=== PATIENT | female | born 1970 | race Caucasian/White ===

== ENCOUNTER 2020-01-14 20:31 | Emergency (ER) | payer MEDICAID, SELFPAY ==
--- NOTE | 2020-01-14 19:52 | ED_ITS ---
Entered by Keyonna Villegas, acting as scribe for Shanae Kaur HPI - Neuro Symptoms/Deficit General: Chief Complaint: Neuro Symptoms/Deficit Stated Complaint: Stroke Like Symptoms Time Seen by Provider: 01/14/20 19:53 Source: patient and EMS Mode of arrival: EMS History of Present Illness: HPI Narrative: 49 y/o female presents to the ED with complaint of possible stroke. EMS states she fell two days ago at home and hit her head in the shower. Pt told them she lost her balance when she became dizzy. Since then, she has had DÍAZ and increased dizziness. Tonight she had a sudden onset of near syncope after becoming dizzy while washing the dishes. Pt has had right sided weakness and right arm tingling/pins and needles sensation. She states at the same time she had a sudden onset headache, the worst headache of her life and feels like a hammer hit her in the head or a drag down knife went into her head. She has vision changes upon exam. Onset 1835 according to . Pt has has hx of diabetes, HTN and TIA. She believes her last known normal was 1600. states she had an episode of decreased consciousness last night but it resolved on its own. Time: 18:35 Timing confirmed by: family member Location: right arm History of same: Yes Severity: similar to previous episodes Quality: weak and tingling Relieving factors: none Context: sudden onset Associated symptoms: Reports tingling and weakness; Deny diaphoresis, malaise or vomiting Review of Systems General: Reports: other (negative unless marked) Const: Denies: fever, chills, body aches, fatigue, malaise or diaphoresis ENMT: Denies: throat pain, painful swallowing, hoarseness, ear pain, ear discharge, Change in hearing or nasal discharge Resp: Denies: shortness of breath, productive cough, non-productive cough, wheezing, coughing up blood or chest congestion GI: Denies: abdominal pain, vomiting, vomiting blood, coffee grounds in vomit, diarrhea, constipation, cramping, blood in stool or black tarry stool : Denies: flank pain, painful urination, urinary frequency, urinary urgency, decreased urine ouput, urinary incontinence or blood in urine Musc: Denies: neck pain, back pain, extremity pain, extremity swelling, joint pain, joint swelling, joint warmth or joint stiffness Skin/Breast: Denies: rash, skin tenderness or yellow skin Neuro: Reports: other (See HPI) Endo: Denies: excessive thirst, tired all the time, cold intolerance, excessive sweating, flushing or hot flashes Renny/Lymph: Denies: easy bruising, easy bleeding, petechiae or enlarged lymph nodes All/Imm: Denies: hives, throat swelling, tongue swelling, facial swelling or acute wheezing PFSH ED PFSH: Social History (Updated 12/02/19 @ 13:24 by Amanda Frost LPN) Smoking and tobacco status: current every day smoker cigarettes Alcohol intake: never NIH stroke score NIHSS: Level Of Consciousness - 1a: 0 Level Of Consciousness Questions - 1 b: Both Correct Level Of Consciousness Commands - 1c: Both Correct Best Gaze - 2: Normal Visual Long - 3: Partial Hemianopia Facial Palsy - 4: Normal Motor Arm Right - 5: Drift Motor Arm Left - 5: No Drift Motor Leg Right - 6: Drift Motor Leg Left - 6: No Drift Limb Ataxia - 7: Present In Two Limbs Sensory - 8: Mild To Moderate Loss (pins and needles R side) Best Language - 9: No Aphasia Dysarthia - 10: Normal Extinction And Inattention - 11: 0 Score: Total Score: 6 Physical Exam Const: COMMON NORMALS: oriented x3 and alert GENERAL APPEARANCE: cooperative and well developed; not lethargic ORIENTATION/CONSCIOUSNESS: Yes awake, Yes oriented to person, Yes oriented to place and Yes oriented to time; not lethargic HENMT: COMMON NORMALS: hearing grossly normal bilaterally, external ears normal, EAC's normal, external nose normal and moist oral mucous membranes FACE & SINUS: normal facial exam and face symmetric NOSE: external nose normal and nares normal EXTERNAL EAR: Yes external ears normal EXTERNAL AUDITORY CANAL: EAC's normal MOUTH: oral and palatal mucosa normal and tongue normal Eye: GENERAL EYE: normal appearance of both eyes and normal light reflex SCLERA: sclerae normal CORNEA: Yes corneas normal DIRECT OPHTHALMOSCOPY: Yes normal light reflex Neck/C-Spine: COMMON NORMALS: full ROM, no lymphadenopathy, supple, no meningeal signs and no JVD GENERAL: Yes normal visual inspection and Yes trachea midline CERVICAL SPINE: Yes cervical ROM normal Chest: COMMONS NORMALS: inspection of chest normal and palpation of chest normal Resp: COMMON NORMALS: normal respiratory effort, no retractions, no use of accessory muscles and clear to auscultation bilaterally EFFORT & INSPECTION: Yes able to speak in complete sentences AUSCULTATION: clear to auscultation bilaterally Cardio: COMMON NORMALS: no JVD, regular rate, regular rhythm, S1 normal heart sound, S2 normal heart sound, no gallops, no clicks, no murmurs and no rub JUGULAR VENOUS DISTENTION: no JVD RATE: regular rate RHYTHM: regular rhythm HEART SOUNDS: S1 normal and S2 normal GI: COMMON NORMALS: soft to palpation, non-tender, no hepatosplenomegaly and no masses INSPECTION: Yes normal to inspection PALPATION: Yes soft and Yes no hepatosplenomegaly : COMMON NORMALS: Yes no CVA tenderness BLADDER/KIDNEY EXAM: Yes no CVA tenderness Back/Pelvis: COMMON NORMALS: no CVA tenderness, thoracic and lumbar spine normal to inspection, no thoracic nor lumbar tenderness and thoraco-lumbar ROM normal Neuro: COMMON NORMALS: oriented x3 and moves all extremities SENSORIUM/ORIENTATION: Yes alert, Yes oriented to person, Yes oriented to place, Yes oriented to time and No lethargic MENINGEAL SIGNS: Yes no meningeal signs CRANIAL NERVES: Yes CN normal except as noted SPEECH: speech normal GAIT: Yes normal gait Skin: COMMON NORMALS: no rashes or lesions noted, skin turgor normal, no jaundice, no petechiae and no mottling GENERAL SKIN EXAM: no rashes or lesions noted and turgor normal Course ED course: 1945 - Stroke Alert Called 1952 - [place] [facility] [place] 2025 - Discussed case with Dr. Oviedo from [facility]. Due to her sudden onset of syncope and experiencing the worse DÍAZ of her life , he does not recommend TPA, at this time. He would like the patient to go for a CTA of the head and neck. 2114 - Discussed CTA results with Dr. Oviedo. He still does not believe TPA is a good option, at this point. He recommends an LP performed 6 hours after onset of symptoms. 2142 - Discussed case with Dr. Hawkins who would like an emergent MRI. 2152 - Emergent MRI ordered STAT 3 -patient is back from MRI and angry that she is not had something for her leg cramps. She denies any current visual symptoms. She states her headache is mild. She states that she wants her family so she can sign out AGAINST MEDICAL ADVICE. 2359 -patient has decided she wants to leave AGAINST MEDICAL ADVICE despite my encouragement to have her stay as well as family's. She wants to sign an AMA form and leave immediately. We will try to get her to stay for discharge instructions but I do not believe she is wanting to stay for those. I do believe the patient is alert to person, place, time and situation. I believe she is competent to make her own decisions. I have no ability to hold her against her will at this time. Her family is willing to take her home and look after her and despite their wishes for her to stay they agree that she cannot be held against her will at this time. The patient has been warned but she is also been welcomed to return. Vital Signs: Vital signs: Vital Signs Temperature 98.4 F 01/14/20 19:53 Pulse Rate 90 01/14/20 19:53 Respiratory Rate 16 01/14/20 19:53 Blood Pressure 162/82 01/14/20 19:53 Pulse Oximetry 97 01/14/20 19:53 MDM - Neuro Symptoms/Deficit MDM Narrative: Medical decision making narrative: Nona is a very nice 49-year-old female who comes in with 3 syncopal episodes in the past 24 hours along with severe headache. A stroke alert was called immediately and the case was reviewed with Dr. Oviedo. Please see his note for his recommendations but ultimately he did not recommend TPA. Even despite the patient's CTA head and neck he did still did not think TPA needed to be given. As time went on treating the patient's headache seemed to be most successful and she got much better. Ultimately though she became very angry that we were not treating her muscle cramps and elected to leave AGAINST MEDICAL ADVICE. I as well as the patient's talked her at length and offered to treat all of her complaints and pains in an effort to get her to stay but she refused. I inform ed her of the risks of leaving AGAINST MEDICAL ADVICE including ultimately or severe permanent disability and the patient refused. Her CT and MRI were negative for blood. Recent studies have shown that CT within the first 6 hours of onset is nearly 100% sensitive for subarachnoid hemorrhage but despite this I did recommend and offer an LP and the patient had initially agreed but then refused because she wanted to leave. I see no evidence of acute life- threatening illness at this time but I did inform the patient that I still recommended admission as 3 syncopal episodes and this type of headache things such as meningitis, rhythm disturbances but can make her pass out again, myocarditis among many other things could cause her symptoms. Many of these things can be life-threatening but still despite all this she refused to stay and signed out AGAINST MEDICAL ADVICE. I tried to get her to stay for discharge instructions but ultimately she decided AGAINST MEDICAL ADVICE form and left without her discharge instructions. The patient was welcome to return should she change her mind. Lab Data: Attestation: I reviewed the patient's lab results. Labs: Lab Results 01/14/20 01/14/20 01/14/20 Range/Units 20:25 20:25 20:25 WBC 15.0 H (4.0-10.0) 10^3/ uL RBC 5.38 H (4.1-5.3) 10^6/u L Hgb 15.7 H (11.5-15.3) g/dL Hct 45.9 (37.0-47.0) % MCV 85.3 (81-99) fL MCH 29.2 (28.0-34.0) pg MCHC 34.2 (30.0-36.0) g/dL RDW 12.6 (12.1-15.1) % Plt Count 123 L (130-400) 10^3/c mm MPV 12.2 H (7.4-10.4) fL Neut % (Auto) 66.2 % Lymph % (Auto) 27.2 % Hutchinson % (Auto) 4.1 % Eos % (Auto) 1.7 % Baso % (Auto) 0.3 % Neut # (Auto) 9.9 H (1.8-7.7) 10^3/u L Lymph # (Auto) 4.1 (0.8-4.8) 10^3/u L Hutchinson # (Auto) 0.6 (0.2-0.9) 10^3/u L Eos # (Auto) 0.3 (0.0-0.8) 10^3/u L Baso # (Auto) 0.0 (0.0-0.1) 10^3/u L Nucleated RBC % (a uto) 0 % Nucleated RBCs # 0.0 /100WBC PT 11.90 (10.5-13.3) SECO NDS INR 0.86 (0.8-1.2) APTT 27.1 (23.9-36.7) SECO NDS Sodium 132 L (136-145) mmol/L Potassium 4.3 (3.5-5.1) mmol/L Chloride 94 L (98-107) mmol/L Carbon Dioxide 22 (22-29) mmol/L Anion Gap 20.3 H (5-19) BUN 11 (6-20) mg/dL Creatinine 0.9 (0.5-0.9) mg/dL GFR Calculation 66.3 L (90-130) mL/min Glucose 258 H (65-115) mg/dL POC Glucose (70-110) mg/dL Calcium 9.7 (8.5-10.5) mg/dL Total Bilirubin 0.2 (0.15-1.2) mg/dL AST < 5 (0-32) U/L ALT < 5 (0-33) U/L Alkaline Phosphata se 196 H (35-105) IU/L Troponin T Baselin e (0-10) ng/mL Troponin T [address] [facility] (0-10) ng/mL Delta Troponin T (0-10) ABS# Total Protein 6.9 (6.6-8.7) g/dL Albumin 4.3 (3.5-5.2) g/dL Globulin 2.6 (1.3-4.6) g/dL 01/14/20 01/14/20 01/14/20 Range/Units 20:25 20:37 21:55 WBC (4.0-10.0) 10^3/ uL RBC (4.1-5.3) 10^6/u L Hgb (11.5-15.3) g/dL Hct (37.0-47.0) % MCV (81-99) fL MCH (28.0-34.0) pg MCHC (30.0-36.0) g/dL RDW (12.1-15.1) % Plt Count (130-400) 10^3/c mm MPV (7.4-10.4) fL Neut % (Auto) % Lymph % (Auto) % Hutchinson % (Auto) % Eos % (Auto) % Baso % (Auto) % Neut # (Auto) (1.8-7.7) 10^3/u L Lymph # (Auto) (0.8-4.8) 10^3/u L Hutchinson # (Auto) (0.2-0.9) 10^3/u L Eos # (Auto) (0.0-0.8) 10^3/u L Baso # (Auto) (0.0-0.1) 10^3/u L Nucleated RBC % (a uto) % Nucleated RBCs # /100WBC PT (10.5-13.3) SECO NDS INR (0.8-1.2) APTT (23.9-36.7) SECO NDS Sodium (136-145) mmol/L Potassium (3.5-5.1) mmol/L Chloride (98-107) mmol/L Carbon Dioxide (22-29) mmol/L Anion Gap (5-19) BUN (6-20) mg/dL Creatinine (0.5-0.9) mg/dL GFR Calculation (90-130) mL/min Glucose (65-115) mg/dL POC Glucose 255 (70-110) mg/dL Calcium (8.5-10.5) mg/dL Total Bilirubin (0.15-1.2) mg/dL AST (0-32) U/L ALT (0-33) U/L Alkaline Phosphata se (35-105) IU/L Troponin T Baselin e 8 (0-10) ng/mL Troponin T [address] [facility] 7.36 (0-10) ng/mL Delta Troponin T -0.64 L (0-10) ABS# Total Protein (6.6-8.7) g/dL Albumin (3.5-5.2) g/dL Globulin (1.3-4.6) g/dL Imaging Data^: CT Head: Radiologist's impression: [address] [address] [address] Scan Report Signed Patient: Analia Hurst #: [id number] : 1970Acct#:[id number] Age/Sex: 49 / FADM Date: Loc: ERRoom/Bed: Attending Dr: Ordering Provider/Ordering MD: Shanae Kaur DO Date of Service: 01/14/20 Procedure(s): CT head wo con* [id number] Accession Number(s): [id number] Report Number: [id number] PROCEDURE INFORMATION: Exam: CT Head Without Contrast Exam date and time: 01/14/2020 7:53 PM Age: 49 years old Clinical indication: Weakness, extremity; Right; Additional info: Symptoms of acute stroke TECHNIQUE: Imaging protocol: Computed tomography of the head without contrast. Total DLP: 790.75 mGy-cm Radiation optimization: All CT scans at this facility use at least one of these dose optimization techniques: automated exposure control; mA and/or kV adjustment per patient size (includes targeted exams where dose is matched to clinical indication); or iterative reconstruction. Other technique: STROKE PROTOCOL was implemented. COMPARISON: No relevant prior studies available. FINDINGS: Brain: Normal. No hemorrhage. Unremarkable white matter. No mass effect. Midline shift: There is no shift of midline structures. Ventricles: Normal. No ventriculomegaly. Bones/joints: Unremarkable. No acute fracture. Sinuses: Visualized sinuses are unremarkable. No fluid levels. Mastoid air cells: Visualized mastoid air cells are well aerated. Soft tissues: Unremarkable. CT/CT head wo con* [id number] IMPRESSION: No acute intracranial abnormality. ASSESSMENT: ASPECTS ([place] Stroke Program Early CT Score) is 10. Radiation Dose CTDIVOL = (mGy): DLP = 790.75 (mGy-cm) Dictated By:Waldemar Salinas Signed By:Ford Salinasigned Date/Time:01/14/202018 CTA : Radiologist's impression: [address] [address] [address] Scan Report Signed Patient: Analia Hurst #: [id number] : 1970Acct#:[id number] Age/Sex: 49 / FADM Date: 01/14/20 Loc: ERRoom/Bed: Attending Dr: Ordering Provider/Ordering MD: Shanae Kaur DO Date of Service: 01/14/20 Procedure(s): CT angio headneck* [id number] Accession Number(s): [id number] Report Number: [id number] PROCEDURE INFORMATION: Exam: CT Angiography Head With Contrast Exam date and time: 01/14/2020 8:28 PM Age: 49 years old Clinical indication: Weakness; Prior surgery; Surgery date: 1-6 months; Additional info: Stroke symptoms TECHNIQUE: Imaging protocol: Computed tomography angiography of the head with intravenous contrast. 3D rendering: MIP and/or 3D reconstructed images were created by the technologist. Total DLP: 2997.32 mGy-cm Radiation optimization: All CT scans at this facility use at least one of these dose optimization techniques: automated exposure control; mA and/or kV adjustment per patient size (includes targeted exams where dose is matched to clinical indication); or iterative reconstruction. Contrast material: OMNI 350; Contrast volume: 95 ml; Contrast route: IV; COMPARISON: CT head wo con* [id number] 01/14/2020 8:06 PM FINDINGS: Right internal carotid artery: Unremarkable. Intracranial segment is patent with no significant stenosis. No aneurysm. Right anterior cerebral artery: Unremarkable. No occlusion or significant stenosis. No aneurysm. Right middle cerebral artery: Unremarkable. No occlusion or significant stenosis. No aneurysm. Right posterior cerebral artery: Unremarkable. No occlusion or significant stenosis. No aneurysm. Right vertebral artery: Unremarkable. No occlusion or significant stenosis. No aneurysm. Left internal carotid artery: Unremarkable. Intracranial segment is patent with no significant stenosis. No aneurysm. Left anterior cerebral artery: Unremarkable. No occlusion or significant stenosis. No aneurysm. Left middle cerebral artery: Unremarkable. No occlusion or significant stenosis. No aneurysm. Left posterior cerebral artery: Unremarkable. No occlusion or significant stenosis. No aneurysm. Left vertebral artery: Unremarkable. No occlusion or significant stenosis. No aneurysm. Basilar artery: Unremarkable. No occlusion or significant stenosis. No aneurysm. IMPRESSION: No acute findings. PROCEDURE INFORMATION: Exam: CT Angiography Neck With Contrast Exam date and time: 01/14/2020 8:28 PM Age: 49 years old Clinical indication: Weakness; Prior surgery; Surgery date: 1-6 months; Additional info: Stroke symptoms TECHNIQUE: Imaging protocol: Computed tomography angiography of the neck with intravenous contrast. 3D rendering: MIP and/or 3D reconstructed images were created by the technologist. Total DLP: 2997.32 mGy-cm Radiation optimization: All CT scans at this facility use at least one of these dose optimization techniques: automated exposure control; mA and/or kV adjustment per patient size (includes targeted exams where dose is matched to clinical indication); or iterative reconstruction. Contrast material: OMNI 350; Contrast volume: 95 ml; Contrast route: IV; COMPARISON: CT head wo con* [id number] 01/14/2020 8:06 PM FINDINGS: VASCULATURE: Right common carotid artery: Unremarkable. No stenosis. No dissection or occlusion. Right internal carotid artery: Unremarkable extracranial segment. No stenosis. No dissection or occlusion. Right external carotid artery: Unremarkable. No occlusion or stenosis of the origin. Right vertebral artery: Unremarkable. No stenosis. No dissection or occlusion. Left common carotid artery: The left common carotid artery and the brachiocephalic artery arise from a common trunk. This is a developmental variant. Left internal carotid artery: There is some minimal calcified plaque in the proximal left internal carotid artery without measurable stenosis according to the NASCET criteria. Left external carotid artery: Unremarkable. No occlusion or stenosis of the origin. Left vertebral artery: Unremarkable. No stenosis. No dissection or occlusion. NECK: Bones/joints: There are extensive postsurgical changes of anterior spinal fusion from C3-C7 Soft tissues: Normal. No significant soft tissue swelling. CT/CT angio headneck* [id number] IMPRESSION: There is no evidence of any stenosis in the common or internal carotid artery on either side of the neck. COMMENT: Using NASCET method for measuring degree of carotid artery stenosis: Mild is less than 50% stenosis. Moderate is 50-69% stenosis. Severe is 70-94% stenosis. Near occlusion is 95-99% stenosis. Radiation Dose CTDIVOL = (mGy): DLP = 2997.32~2997.32 (mGy-cm) Dictated By:Waldemar Salinas Signed By:Tracy Salinas Date/Time:01/14/202124 MRI: Radiologist's impression: [address] [address] Magnetic Resonance Report Signed Patient: Analia Hurst #: [id number] : 1970Acct#:[id number] Age/Sex: 49 / FADM Date: 01/14/20 Loc: ERRoom/Bed: Attending Dr: Ordering Provider/Ordering MD: Shanae Kaur DO Date of Service: 01/14/20 Procedure(s): MR head wo con* [id number] Accession Number(s): [id number] Report Number: [id number] PROCEDURE INFORMATION: Exam: MR Head Without Contrast Exam date and time: 01/14/2020 9:49 PM Age: 49 years old Clinical indication: Other: Possible CVA , headache; Additional info: CVA symptoms TECHNIQUE: Imaging protocol: MR of the head without contrast. COMPARISON: CT head wo con* [id number] 01/14/2020 8:06 PM FINDINGS: Brain: Normal. No acute infarct. No hemorrhage. No significant white matter disease. No edema. Ventricles: Normal. No ventriculomegaly. Bones/joints: Unremarkable. Soft tissues: Unremarkable. Sinuses: There is some mild opacification of some left ethmoid air cells which could represent some mild sinusitis.. Mastoid air cells: Normal as visualized. No mastoid effusion. Orbits: Unremarkable. MR/MR head wo con* [id number] IMPRESSION: Question of left ethmoid sinusitis. No acute intracranial finding EKG Data^: EKG 1: Attestation: I personally reviewed and interpreted this EKG as follows: EKG interpretation date: 01/14/20 EKG interpretation time: 20:27 Interpretation: Normal sinus rhythm at 94 beats a minute, no acute ST or T wave changes, incomplete right bundle branch block, normal intervals, no blocks. EKG 2: Attestation: I personally reviewed and interpreted this EKG as follows: EKG interpretation date: 01/14/20 EKG interpretation time: 22:08 Interpretation: Normal sinus rhythm at 81 beats a minute, no acute ST-T wave changes, incomplete right bundle branch block. Discharge Plan Discharge Patient Disposition: Left Against Medical Advice Clinical Impression: Syncope Qualifiers: Syncope type: unspecified Qualified Code(s): R55 - Syncope and collapse Condition: Stable Prescriptions: No Action promethazine 25 mg tablet 25 mg PO .1/2 tab BID PRNRF: 0 Novolog Mix 70-30FlexPen U-100 100 unit/mL (70-30) insulin pen 20 unit SUBCUT QAM RF: 0 prazosin 1 mg capsule 1 mg PO .HS RF: 0 pregabalin [Lyrica] 300 mg capsule 300 mg PO BID RF: 0 tramadol 50 mg tablet 50 mg PO .5 times daily PRN (Reason: Pain) RF: 0 meloxicam 15 mg tablet,disintegrating 15 mg PO ONCE RF: 0 oxycodone 15 mg tablet 30 mg PO TID PRN (Reason: Pain) RF: 0 tizanidine 4 mg capsule 4 mg PO TID PRN (Reason: Sleep) RF: 0 ropinirole 2 mg tablet 2 mg PO .HS RF: 0 Bydureon 2 mg/0.65 mL pen injector 2 mg SUBCUT Q7D RF: 0 lactulose 20 gram/30 mL solution 20 gm PO BID RF: 0 Toujeo Max U-300 SoloStar 300 unit/mL (3 mL) insulin pen 76 unit SUBCUT BID RF: 0 sumatriptan succinate [Imitrex] 100 mg tablet 100 mg PO ONCE RF: 0 fluconazole 150 mg tablet 150 mg PO .once a week RF: 0 nitroglycerin [Nitrostat] 0.4 mg tablet, sublingual 0.4 mg SUBLINGUAL Q5M PRNRF: 0 oxymetazoline [Afrin (oxymetazoline)] 0.05 % spray,non-aerosol 2 spray INTRANASAL Q12H PRNRF: 0 loratadine [Claritin] 10 mg tablet 10 mg PO ONCE RF: 0 multivitamin Capsule 1 cap PO QAM RF: 0 ondansetron HCl 4 mg tablet 4 mg PO Q6H 20 Days Qty: 30 RF: 4 citalopram [Celexa] 40 mg tablet 40 mg PO ONCE 30 Days Qty: 30 RF: 6 zolpidem [Ambien] 10 mg tablet 10 mg PO ONCE 30 Days Qty: 30 RF: 3 ranitidine HCl 150 mg tablet 150 mg PO BID RF: 0 Discharge Orders: Discharge Order (Routine); Ordered 01/15/20 Ordered By: Shanae Kaur Referrals: Yesica Bailey MD [Primary Care Provider] - 1-3 days Discharge Diet: Advance as tolerated Discharge Activity: Increase activity as tolerated Patient Instructions: Syncope (ED) Activity Restrictions/Additional Instructions: You're leaving AGAINST MEDICAL ADVICE and are at risk for or severe permanent disability by doing so. You are more than welcome to return at any time for recheck and for further evaluation and care suture change you change your mind. Stand Alone Forms: Against Medical Advice Discharge Date/Time: 01/14/20 23:58 Coding Level of Care Code ED Chair And Couch Maker for Chg Fwd Exam Comprehensive The documentation recorded by the scribBakari rhodes Ashley, accurately reflects the service I personally performed and the decisions made by me, Shanae Kaur
[2020-01-14 19:53] VITALS: BP 162/82; PULSE 90; RESP 16; TEMP 36.9; O2SAT 97; BMI 32.4
--- NOTE | 2020-01-14 19:53 | ECG_ITS ---
Measurements Intervals [place] Rate: 94 P: 66 OR: 166 QRS: 88 QRSD: 85 T: 75 QT: 336 QTc: 421 SINUS RHYTHM Compared to ECG 04/29/2018 08:39:08 Incomplete right bundle-branch block no longer present Electronically Signed On 01-15-2020 9:13:17 CAR VARNISHER by Gera Quintero M.D. [email or web address]
--- NOTE | 2020-01-14 20:26 | CTR_ITS ---
PROCEDURE INFORMATION: Exam: CT Angiography Head With Contrast Exam date and time: 01/14/2020 8:28 PM Age: 49 years old Clinical indication: Weakness; Prior surgery; Surgery date: 1-6 months; Additional info: Stroke symptoms TECHNIQUE: Imaging protocol: Computed tomography angiography of the head with intravenous contrast. 3D rendering: MIP and/or 3D reconstructed images were created by the technologist. Total DLP: 2997.32 mGy-cm Radiation optimization: All CT scans at this facility use at least one of these dose optimization techniques: automated exposure control; mA and/or kV adjustment per patient size (includes targeted exams where dose is matched to clinical indication); or iterative reconstruction. Contrast material: OMNI 350; Contrast volume: 95 ml; Contrast route: IV; COMPARISON: CT head wo con* [id number] 01/14/2020 8:06 PM FINDINGS: Right internal carotid artery: Unremarkable. Intracranial segment is patent with no significant stenosis. No aneurysm. Right anterior cerebral artery: Unremarkable. No occlusion or significant stenosis. No aneurysm. Right middle cerebral artery: Unremarkable. No occlusion or significant stenosis. No aneurysm. Right posterior cerebral artery: Unremarkable. No occlusion or significant stenosis. No aneurysm. Right vertebral artery: Unremarkable. No occlusion or significant stenosis. No aneurysm. Left internal carotid artery: Unremarkable. Intracranial segment is patent with no significant stenosis. No aneurysm. Left anterior cerebral artery: Unremarkable. No occlusion or significant stenosis. No aneurysm. Left middle cerebral artery: Unremarkable. No occlusion or significant stenosis. No aneurysm. Left posterior cerebral artery: Unremarkable. No occlusion or significant stenosis. No aneurysm. Left vertebral artery: Unremarkable. No occlusion or significant stenosis. No aneurysm. Basilar artery: Unremarkable. No occlusion or significant stenosis. No aneurysm. IMPRESSION: No acute findings. PROCEDURE INFORMATION: Exam: CT Angiography Neck With Contrast Exam date and time: 01/14/2020 8:28 PM Age: 49 years old Clinical indication: Weakness; Prior surgery; Surgery date: 1-6 months; Additional info: Stroke symptoms TECHNIQUE: Imaging protocol: Computed tomography angiography of the neck with intravenous contrast. 3D rendering: MIP and/or 3D reconstructed images were created by the technologist. Total DLP: 2997.32 mGy-cm Radiation optimization: All CT scans at this facility use at least one of these dose optimization techniques: automated exposure control; mA and/or kV adjustment per patient size (includes targeted exams where dose is matched to clinical indication); or iterative reconstruction. Contrast material: OMNI 350; Contrast volume: 95 ml; Contrast route: IV; COMPARISON: CT head wo con* [id number] 01/14/2020 8:06 PM FINDINGS: VASCULATURE: Right common carotid artery: Unremarkable. No stenosis. No dissection or occlusion. Right internal carotid artery: Unremarkable extracranial segment. No stenosis. No dissection or occlusion. Right external carotid artery: Unremarkable. No occlusion or stenosis of the origin. Right vertebral artery: Unremarkable. No stenosis. No dissection or occlusion. Left common carotid artery: The left common carotid artery and the brachiocephalic artery arise from a common trunk. This is a developmental variant. Left internal carotid artery: There is some minimal calcified plaque in the proximal left internal carotid artery without measurable stenosis according to the NASCET criteria. Left external carotid artery: Unremarkable. No occlusion or stenosis of the origin. Left vertebral artery: Unremarkable. No stenosis. No dissection or occlusion. NECK: Bones/joints: There are extensive postsurgical changes of anterior spinal fusion from C3-C7 Soft tissues: Normal. No significant soft tissue swelling. CT/CT angio headneck* [id number] IMPRESSION: There is no evidence of any stenosis in the common or internal carotid artery on either side of the neck. COMMENT: Using NASCET method for measuring degree of carotid artery stenosis: Mild is less than 50% stenosis. Moderate is 50-69% stenosis. Severe is 70-94% stenosis. Near occlusion is 95-99% stenosis. Radiation Dose CTDIVOL = (mGy): DLP = 2997.32~2997.32 (mGy-cm)
[2020-01-14 20:29] LABS: Basophils % 0.3 %; Eosinophils # 0.3 10^3/uL (0.0-0.8); Eosinophils % 1.7 %; Hematocrit 45.9 % (37.0-47.0); Hemoglobin 15.7 g/dL (11.5-15.3); Lymphocytes # 4.1 10^3/uL (0.8-4.8); Lymphocytes % 27.2 %; Mean Corpuscular HGB Conc 34.2 g/dL (30.0-36.0); Mean Corpuscular Hemoglobin 29.2 pg (28.0-34.0); Mean Corpuscular Volume 85.3 fL (81-99); Mean Platelet Volume 12.2 fL (7.4-10.4); Monocytes # 0.6 10^3/uL (0.2-0.9); Monocytes % 4.1 %; Neutrophils # 9.9 10^3/uL (1.8-7.7); Neutrophils % 66.2 %; Nucleated Red Blood Cells % 0 %; Platelet Count 123 10^3/cmm (130-400); Red Blood Count 5.38 10^6/uL (4.1-5.3); Red Cell Distribution Width 12.6 % (12.1-15.1)
[2020-01-14] MEDS: iohexol 350 mg/mL 100 mL Btl IV (20:29)
[2020-01-14 20:38] LABS: INR 0.86 (0.8-1.2)
[2020-01-14 20:39] LABS: Partial Thromboplastin Time 27.1 SECONDS (23.9-36.7)
[2020-01-14 20:40] LABS: Glucose Point of Care 255 mg/dL (70-110)
[2020-01-14 20:50] LABS: Troponin(5th) Baseline 8 ng/mL (0-10)
[2020-01-14 21:12] LABS: Alanine Aminotransferase < 5 U/L (0-33); Albumin Level 4.3 g/dL (3.5-5.2); Alkaline Phosphatase 196 IU/L (35-105); Anion Gap 20.3 (5-19); Blood Urea Nitrogen 11 mg/dL (6-20); Calcium 9.7 mg/dL (8.5-10.5); Carbon Dioxide 22 mmol/L (22-29); Chloride 94 mmol/L (98-107); Globulin 2.6 g/dL (1.3-4.6); Glomerular Filtration Rate 66.3 mL/min (90-130); Glucose 258 mg/dL (65-115); Potassium 4.3 mmol/L (3.5-5.1); Total Bilirubin 0.2 mg/dL (0.15-1.2); Total Protein 6.9 g/dL (6.6-8.7)
[2020-01-14 21:13] LABS: Aspartate Amino Transferase < 5 U/L (0-32)
[2020-01-14 21:14] LABS: Sodium 132 mmol/L (136-145)
--- NOTE | 2020-01-14 21:46 | MRR_ITS ---
PROCEDURE INFORMATION: Exam: MR Head Without Contrast Exam date and time: 01/14/2020 9:49 PM Age: 49 years old Clinical indication: Other: Possible CVA , headache; Additional info: CVA symptoms TECHNIQUE: Imaging protocol: MR of the head without contrast. COMPARISON: CT head wo con* [id number] 01/14/2020 8:06 PM FINDINGS: Brain: Normal. No acute infarct. No hemorrhage. No significant white matter disease. No edema. Ventricles: Normal. No ventriculomegaly. Bones/joints: Unremarkable. Soft tissues: Unremarkable. Sinuses: There is some mild opacification of some left ethmoid air cells which could represent some mild sinusitis.. Mastoid air cells: Normal as visualized. No mastoid effusion. Orbits: Unremarkable. MR/MR head wo con* [id number] IMPRESSION: Question of left ethmoid sinusitis. No acute intracranial finding
--- NOTE | 2020-01-14 21:53 | ECG_ITS ---
Measurements Intervals [place] Rate: 81 P: 64 LA: 168 QRS: 79 QRSD: 91 T: 74 QT: 372 QTc: 433 SINUS RHYTHM Compared to ECG 04/29/2018 08:39:08 Incomplete right bundle-branch block no longer present Electronically Signed On 01-15-2020 9:14:54 [employer] by Gera Quintero M.D. [email or web address]
[2020-01-14 22:30] LABS: Troponin 5 2HR 7.36 ng/mL (0-10)
[2020-01-14 22:36] LABS: Troponin 5 2HR Delta -0.64 ABS# (0-10)
--- NOTE | 2020-01-14 22:38 | PC.NURSE ---
pt to MRI via EMS
[2020-01-14] MEDS: valproic acid inj 500 MG in sodium chloride 0.9% 50 ML 55 MG IV (23:36)
== END 2020-01-14 23:58 | disposition left against medical advice (07) ==
PROVIDERS: Emergency Provider Emergency Medicine; Family Provider Family Medicine; PCP Family Medicine
DX: R55 Syncope and collapse (principal); E11.9 Type 2 diabetes mellitus without complications; I10 Essential (primary) hypertension; F17.210 Nicotine dependence, cigarettes, uncomplicated; Z79.4 Long term (current) use of insulin; R29.706 NIHSS score 6; Z86.73 Personal history of transient ischemic attack (TIA), and cerebral infarction without residual deficits; Z53.29 Procedure and treatment not carried out because of patient's decision for other reasons
CPT/HCPCS: 36416; 70450; 70496; 70498; 70551; 80053; 82962; 84484; 85025; 85610; 85730; 93005; 96365; 96367; 99283; 99285; J0131; Q9967

== ENCOUNTER 2020-01-14 20:31 | Emergency (ER) | payer MEDICAID, SELFPAY | END 2020-01-14 23:58 | disposition left against medical advice (07) | LOC: ER 01-20 13:13 | PROVIDERS: Emergency Provider Emergency Medicine; Family Provider Family Medicine; PCP Family Medicine | DX: Z76.89 Persons encountering health services in other specified circumstances (principal) ==

== ENCOUNTER → 2020-01-18 08:04 | Outpatient (BNVA) | payer MEDICAID, SELFPAY | PROVIDERS: Family Provider Family Medicine; PCP Family Medicine; Visit Provider Anesthesiology | DX: M54.5 Low back pain (principal); M96.1 Postlaminectomy syndrome, not elsewhere classified; M79.651 Pain in right thigh; M79.652 Pain in left thigh; M48.02 Spinal stenosis, cervical region; F17.210 Nicotine dependence, cigarettes, uncomplicated; Z79.891 Long term (current) use of opiate analgesic | CPT/HCPCS: 99214 ==

== ENCOUNTER → 2020-05-08 09:28 | Outpatient (BNVA) | payer MEDICAID, SELFPAY | PROVIDERS: Family Provider Family Medicine; PCP Family Medicine; Visit Provider Nurse Practitioner | DX: M51.36 Other intervertebral disc degeneration, lumbar region (principal); M96.1 Postlaminectomy syndrome, not elsewhere classified; M48.02 Spinal stenosis, cervical region; Z79.891 Long term (current) use of opiate analgesic | CPT/HCPCS: 99214 ==

== ENCOUNTER → 2020-07-03 08:49 | Outpatient (BNVA) | payer MEDICAID, SELFPAY | PROVIDERS: Family Provider Family Medicine; PCP Family Medicine; Visit Provider Anesthesiology | DX: M54.41 Lumbago with sciatica, right side (principal); M51.36 Other intervertebral disc degeneration, lumbar region; M48.02 Spinal stenosis, cervical region; M54.9 Dorsalgia, unspecified; M96.1 Postlaminectomy syndrome, not elsewhere classified; Z79.891 Long term (current) use of opiate analgesic | CPT/HCPCS: 99214 ==

== ENCOUNTER → 2020-09-07 07:51 | Outpatient (BNVA) | payer MEDICAID, SELFPAY | PROVIDERS: Family Provider Family Medicine; PCP Family Medicine; Visit Provider Anesthesiology | DX: M51.36 Other intervertebral disc degeneration, lumbar region (principal); M48.02 Spinal stenosis, cervical region; M96.1 Postlaminectomy syndrome, not elsewhere classified; M54.9 Dorsalgia, unspecified; M54.2 Cervicalgia; Z79.891 Long term (current) use of opiate analgesic | CPT/HCPCS: 99213; 99214 ==

== ENCOUNTER → 2020-10-01 10:58 | Outpatient (BNVA) | payer MEDICAID, SELFPAY | PROVIDERS: Family Provider Family Medicine; PCP Family Medicine; Visit Provider Family Medicine | DX: E11.9 Type 2 diabetes mellitus without complications (principal); Z79.4 Long term (current) use of insulin; F33.1 Major depressive disorder, recurrent, moderate; M96.1 Postlaminectomy syndrome, not elsewhere classified | CPT/HCPCS: 80053; 83036; 85025 ==

== ENCOUNTER → 2020-10-04 07:50 | Outpatient (BNVA) | payer MEDICAID, SELFPAY | PROVIDERS: Family Provider Family Medicine; PCP Family Medicine; Visit Provider Anesthesiology | DX: M54.42 Lumbago with sciatica, left side (principal); M54.41 Lumbago with sciatica, right side; M96.1 Postlaminectomy syndrome, not elsewhere classified; M54.9 Dorsalgia, unspecified; M48.02 Spinal stenosis, cervical region; Z79.1 Long term (current) use of non-steroidal anti-inflammatories (NSAID); Z79.891 Long term (current) use of opiate analgesic | CPT/HCPCS: 62323; 99213; 99214 ==

== ENCOUNTER 2020-10-11 12:19 | Inpatient (IN) | payer MEDICAID, SELFPAY ==
[2020-10-11] VITALS (9 sets, daily range): BP systolic 92–144; BP diastolic 63–76; PULSE 87–102; RESP 14–18; TEMP 36.8; O2SAT 93–98
[2020-10-11 12:55] LABS: Hematocrit 41.6 % (37.0-47.0); Hemoglobin 13.4 g/dL (11.5-15.3); Mean Corpuscular HGB Conc 32.2 g/dL (30.0-36.0); Mean Corpuscular Hemoglobin 29.8 pg (28.0-34.0); Mean Corpuscular Volume 92.7 fL (81-99); Mean Platelet Volume 13.6 fL (7.4-10.4); Platelet Count 256 10^3/cmm (130-400); Red Blood Count 4.49 10^6/uL (4.1-5.3); Red Cell Distribution Width 14.6 % (12.1-15.1); White Blood Count 23.1 10^3/uL (4.0-10.0)
[2020-10-11 13:04] LABS: ABG PCO2 36.1 mmHg (35-45); ABG PH Result 7.35 (7.35-7.45); Alveolar-Arterial Oxygen Gradi 4.7 mmHg (5-10); Arterial Blood Gas Hematocrit 37.4 % (37-47); Base Excess ABG -5.1 mmol/L (-2.0-2.0); Blood Gas Allen Test Pos; Blood Gas Operator Identificat MONRO; Blood Gas Sample Site Radial, right; Blood Gas Sample Type Arterial; Carboxyhemoglobin 1.9 %THgb (0.4-20.1); HCO3 ABG 19.9 mmol/L (22-26); HGB O2 Sat 90.4 % (95-100); Ionized Calcium Level - ABG 1.1 mmol/L (1.1-1.4); Oxygen Device ROOM AIR; PO2 ABG 68.3 mmHg (80.0-100.0); Potassium Level - ABG 3.6 mmol/L (3.5-5.0); Total Hemoglobin 12.2 g/dL (12-16)
[2020-10-11] MEDS: sodium chloride 0.9% 1,000 ML 999 ML IV ×2 (13:15→19:45)
[2020-10-11] MEDS: naloxone 0.4 mg/ml SDV IVP (13:23)
[2020-10-11 13:38] LABS: Slide Review Slide Review Perform
--- NOTE | 2020-10-11 13:38 | W.ED.RECABL ---
Documented by User: Mukul Etaon DO 10/16/20 11:13 HPI - Recheck/Abnormal Lab/Rx General: Chief Complaint: Recheck/Abnormal Lab/Rx Stated Complaint: HIGH BS/ LETHARGY/ AMS Time Seen by Provider: 10/11/20 12:29 History of Present Illness: HPI narrative: 49-year-old male presents emergency room with altered mental status lethargic very difficult to get a history from. She states I just need to feel better. She tells me she is having dizzy nests and nausea. She denies any chest pain does have some left sided abdominal pain she denies dysuria urgency or frequency no diarrhea she states she had a temp up to 103 earlier today but did not take anything for it. Patient is a smoker. She does take tramadol though she is not able to tell me why she takes it she is extremely lethargic during history taking interview she will answer but frequently need to rearouse her she continually dozes off she appears to be under the influence of medication suspecting she may have taken too much tramadol just based on her appearance. Or has taken some other sedating medication. Initial visit (ago): day(s) Associated symptoms: fever, chills, chest pain, shortness of breath, malaise and nausea Review of Systems General: Reports: ROS unobtainable due to mental status PFSH ED PFSH: Medical History (Updated 10/16/20 @ 00:00 by ) Depression Diabetes Encounter for long-term use of opiate analgesic Hypertension Insomnia penitentiary (current) use of non-steroidal anti-inflammatories (nsaid) Lumbar post-laminectomy syndrome Opioid contract exists Spinal stenosis, cervical region Ulnar nerve impingement Surgical History H/O carpal tunnel repair H/O neck surgery H/O rotator cuff surgery H/O tubal ligation History of hysterectomy History of lumbar fusion S/P left knee arthroscopy Family History Other CAD (coronary artery disease) Cancer Stroke Denies family history of Anesthesia complication Bleeding disorder Social History Smoking and tobacco status: former smoker Alcohol intake: former History of recent travel: No Physical Exam Const: COMMON NORMALS: no acute distress HENMT: COMMON NORMALS: normocephalic, atraumatic and hearing grossly normal bilaterally HEAD & SCALP: normocephalic and atraumatic Neck/C-Spine: COMMON NORMALS: full ROM, no lymphadenopathy, supple and no JVD Lymph: LYMPHATIC: no lymphadenopathy noted and no lymphedema noted Resp: COMMON NORMALS: normal respiratory effort, No retractions, No use of accessory muscles and clear to auscultation bilaterally AUSCULTATION: clear to auscultation bilaterally Cardio: COMMON NORMALS: no JVD, regular rate, regular rhythm and No murmurs present (Cardio) RATE: regular rate RHYTHM: regular rhythm GI: COMMON NORMALS: Soft to palpation and No hepatosplenomegaly present AUSCULTATION: Yes normoactive bowel sounds PALPATION: Yes Soft to palpation, No Tenderness to palpation present (GI), No Guarding due to palpation present (GI) and Yes No hepatosplenomegaly present Extremity: COMMON NORMALS: normal to inspection, capillary refill normal, no clubbing, cyanosis or edema, no calf tenderness and no pedal edema Skin: COMMON NORMALS: no rashes or lesions noted GENERAL SKIN EXAM: no rashes or lesions noted Course Vital Signs: Vital signs: Vital Signs Temperature 97.8 F 10/15/20 10:31 Pulse Rate 81 10/15/20 10:31 Respiratory Rate 16 10/15/20 10:31 Blood Pressure 161/78 10/15/20 10:31 Pulse Oximetry 97 10/15/20 10:31 MDM - Recheck/Abnormal Lab/Rx MDM Narrative: Medical decision making narrative: Care turned over to Dr. Guzman at change of shift Lab Data: Labs: Lab Results 10/11/20 10/11/20 10/11/20 Range/Units 12:00 12:00 12:00 WBC 23.1 H (4.0-10.0) 10^3/ uL RBC 4.49 (4.1-5.3) 10^6/u L Hgb 13.4 (11.5-15.3) g/dL Hct 41.6 (37.0-47.0) % MCV 92.7 (81-99) fL MCH 29.8 (28.0-34.0) pg MCHC 32.2 (30.0-36.0) g/dL RDW 14.6 (12.1-15.1) % Plt Count 256 (130-400) 10^3/c mm MPV 13.6 H (7.4-10.4) fL Total Counted 100 (0-100) Atypical Lymphs % 0.0 (0-5) % Absolute Neutrophi ls 19.4 H (1.4-6.5) 10^3/c mm Segmented Neutroph ils 76 % Abs Segm Neuts (Ma n) 17.6 H (1.6-7.1) 10/cmm Band Neutrophils 8.0 % Abs Band Neuts (Ma n) 1.8 H (0.0-1.2) 10^3/c mm Lymphocytes (Manua l) 11 % Monocytes (Manual) 5.0 % Absolute Monocytes 1.2 H (0.1-0.6) 10^3/c mm Eosinophils (Manua l) 0 % Absolute Eosinophi ls 0.0 (0.0-0.7) 10^3/c mm Basophils (Manual) 0.0 % Absolute Basophils 0.0 (0.0-0.2) 10^3/c mm Platelet Estimate Normal (Normal) D-Dimer 5.92 H (0-0.59) ug/mIFE U Specimen Type Sample Site ABG pH (7.35-7.45) ABG pCO2 (35-45) mmHg ABG pO2 (80.0-100.0) mmH g ABG HCO3 (22-26) mmol/L ABG O2 Saturation ABG Base Excess (-2.0-2.0) mmol/ L Kevon Test A-a O2 Gradient (5-10) mmHg Hematocrit (37-47) % Hgb O2 Saturation (95-100) % Carboxyhemoglobin (0.4-20.1) %THgb Methemoglobin (0.4-1.5) % Total Hemoglobin (12-16) g/dL Sodium (131-143) mmol/L Potassium (3.5-5.0) mmol/L Glucose (70-115) mg/dL Ionized Calcium (1.1-1.4) mmol/L O2 Delivery Device FiO2 % Zig Zag Stitcher ID Chloride (98-107) mmol/L Carbon Dioxide (22-29) mmol/L Anion Gap (5-19) BUN (6-20) mg/dL Creatinine (0.5-0.9) mg/dL GFR Calculation (90-130) mL/min POC Glucose (70-110) mg/dL Estimat Average Gl ucose 278 Hemoglobin A1c 11.3 H (4.0-6.0) % Calculated Osmolal ity (285-295) mOsm/k g Lactic Acid (0.5-2.2) mmol/L Calcium (8.5-10.5) mg/dL Magnesium (1.7-2.3) mg/dL Total Bilirubin (0.15-1.2) mg/dL AST (0-32) U/L ALT (0-33) U/L Alkaline Phosphata se (35-105) IU/L Troponin T Baselin e (0-10) ng/L Troponin T 120 Min [place] (0-10) ng/L Delta Troponin T (0-10) ABS# Troponin T Hi Sens 6Hr (0-10) ng/L Troponin T Hi Sens 6Hr Delta (0-12) ng/L Total Protein (6.6-8.7) g/dL Albumin (3.5-5.2) g/dL Globulin (1.3-4.6) g/dL Lipase (13-60) U/L Procalcitonin (0-0.5) ng/mL Urine Color (Yellow) Urine Appearance (CLEAR) Urine pH (5-7) Ur Specific Gravit y (1.005-1.030) Urine Protein (Negative) Urine Glucose (UA) (Normal) Urine Ketones (Negative) Urine Blood (Negative) Urine Nitrate (Negative) Urine Bilirubin (Negative) Urine Urobilinogen (Negative) mg/dL Ur Leukocyte Fartun ase (Negative) Urine RBC (0-2) /hpf Urine WBC (0-5) /hpf Ur Squamous Epith Cells (0-5) /hpf Amorphous Sediment Urine Bacteria (NONE) /hpf Urine Mucus /hpf Salicylates (3-10) mg/dL Urine Opiates Scre en (Negative) ng/mL Acetaminophen (10-30) ug/mL Ur Barbiturates Sc reen (Negative) ng/mL Ur Phencyclidine S crn (Negative) ng/mL Ur Amphetamines Sc reen (Negative) ng/mL U Benzodiazepines Scrn (Negative) ng/mL Urine Cocaine Scre en (Negative) ng/mL U Marijuana (THC) Screen (Negative) ng/mL Ethyl Alcohol (0-10) mg/dL Serum Ketones (Negative) Nasal/Oral COVID-1 9 PCR SARS-CoV-2 Ag (Rap id) (Negative) 10/11/20 10/11/20 10/11/20 Range/Units 12:51 13:26 13:26 WBC (4.0-10.0) 10^3/ uL RBC (4.1-5.3) 10^6/u L Hgb (11.5-15.3) g/dL Hct (37.0-47.0) % MCV (81-99) fL MCH (28.0-34.0) pg MCHC (30.0-36.0) g/dL RDW (12.1-15.1) % Plt Count (130-400) 10^3/c mm MPV (7.4-10.4) fL Total Counted (0-100) Atypical Lymphs % (0-5) % Absolute Neutrophi ls (1.4-6.5) 10^3/c mm Segmented Neutroph ils % Abs Segm Neuts (Ma n) (1.6-7.1) 10/cmm Band Neutrophils % Abs Band Neuts (Ma n) (0.0-1.2) 10^3/c mm Lymphocytes (Manua l) % Monocytes (Manual) % Absolute Monocytes (0.1-0.6) 10^3/c mm Eosinophils (Manua l) % Absolute Eosinophi ls (0.0-0.7) 10^3/c mm Basophils (Manual) % Absolute Basophils (0.0-0.2) 10^3/c mm Platelet Estimate (Normal) D-Dimer (0-0.59) ug/mIFE U Specimen Type Arterial Sample Site Radial, right ABG pH 7.35 (7.35-7.45) ABG pCO2 36.1 (35-45) mmHg ABG pO2 68.3 L (80.0-100.0) mmH g ABG HCO3 19.9 L (22-26) mmol/L ABG O2 Saturation 93.0 ABG Base Excess -5.1 L (-2.0-2.0) mmol/ L Kevon Test Pos A-a O2 Gradient 4.7 L (5-10) mmHg Hematocrit 37.4 (37-47) % Hgb O2 Saturation 90.4 L (95-100) % Carboxyhemoglobin 1.9 (0.4-20.1) %THgb Methemoglobin 1.0 (0.4-1.5) % Total Hemoglobin 12.2 (12-16) g/dL Sodium 126.0 L (131-143) mmol/L Potassium 3.6 (3.5-5.0) mmol/L Glucose 450.0 H (70-115) mg/dL Ionized Calcium 1.1 (1.1-1.4) mmol/L O2 Delivery Device Room air FiO2 21.0 % Zig Zag Stitcher ID [place] Chloride (98-107) mmol/L Carbon Dioxide (22-29) mmol/L Anion Gap (5-19) BUN (6-20) mg/dL Creatinine (0.5-0.9) mg/dL GFR Calculation (90-130) mL/min POC Glucose (70-110) mg/dL Estimat Average Gl ucose Hemoglobin A1c (4.0-6.0) % Calculated Osmolal ity (285-295) mOsm/k g Lactic Acid (0.5-2.2) mmol/L Calcium (8.5-10.5) mg/dL Magnesium (1.7-2.3) mg/dL Total Bilirubin (0.15-1.2) mg/dL AST (0-32) U/L ALT (0-33) U/L Alkaline Phosphata se (35-105) IU/L Troponin T Baselin e (0-10) ng/L Troponin T 120 Min [place] (0-10) ng/L Delta Troponin T (0-10) ABS# Troponin T Hi Sens 6Hr (0-10) ng/L Troponin T Hi Sens 6Hr Delta (0-12) ng/L Total Protein (6.6-8.7) g/dL Albumin (3.5-5.2) g/dL Globulin (1.3-4.6) g/dL Lipase (13-60) U/L Procalcitonin (0-0.5) ng/mL Urine Color Yellow (Yellow) Urine Appearance Hazy A (CLEAR) Urine pH 5 (5-7) Ur Specific Gravit y 1.010 (1.005-1.030) Urine Protein Neg (Negative) Urine Glucose (UA) 4+ H (Normal) Urine Ketones 1+ H (Negative) Urine Blood 3+ H (Negative) Urine Nitrate Positive H (Negative) Urine Bilirubin Neg (Negative) Urine Urobilinogen Norm (Negative) mg/dL Ur Leukocyte Fartun ase 1+ H (Negative) Urine RBC 5-10 H (0-2) /hpf Urine WBC 55-80 H (0-5) /hpf Ur Squamous Epith Cells 25-40 H (0-5) /hpf Amorphous Sediment Not Reportable Urine Bacteria 3+ H (NONE) /hpf Urine Mucus 1+ /hpf Salicylates (3-10) mg/dL Urine Opiates Scre en Negative (Negative) ng/mL Acetaminophen (10-30) ug/mL Ur Barbiturates Sc reen Negative (Negative) ng/mL Ur Phencyclidine S crn Negative (Negative) ng/mL Ur Amphetamines Sc reen Negative (Negative) ng/mL U Benzodiazepines Scrn Negative (Negative) ng/mL Urine Cocaine Scre en Negative (Negative) ng/mL U Marijuana (THC) Screen Negative (Negative) ng/mL Ethyl Alcohol (0-10) mg/dL Serum Ketones (Negative) Nasal/Oral COVID-1 9 PCR SARS-CoV-2 Ag (Rap id) (Negative) 10/11/20 10/11/20 10/11/20 Range/Units 13:36 13:36 13:36 WBC (4.0-10.0) 10^3/ uL RBC (4.1-5.3) 10^6/u L Hgb (11.5-15.3) g/dL Hct (37.0-47.0) % MCV (81-99) fL MCH (28.0-34.0) pg MCHC (30.0-36.0) g/dL RDW (12.1-15.1) % Plt Count (130-400) 10^3/c mm MPV (7.4-10.4) fL Total Counted (0-100) Atypical Lymphs % (0-5) % Absolute Neutrophi ls (1.4-6.5) 10^3/c mm Segmented Neutroph ils % Abs Segm Neuts (Ma n) (1.6-7.1) 10/cmm Band Neutrophils % Abs Band Neuts (Ma n) (0.0-1.2) 10^3/c mm Lymphocytes (Manua l) % Monocytes (Manual) % Absolute Monocytes (0.1-0.6) 10^3/c mm Eosinophils (Manua l) % Absolute Eosinophi ls (0.0-0.7) 10^3/c mm Basophils (Manual) % Absolute Basophils (0.0-0.2) 10^3/c mm Platelet Estimate (Normal) D-Dimer (0-0.59) ug/mIFE U Specimen Type Sample Site ABG pH (7.35-7.45) ABG pCO2 (35-45) mmHg ABG pO2 (80.0-100.0) mmH g ABG HCO3 (22-26) mmol/L ABG O2 Saturation ABG Base Excess (-2.0-2.0) mmol/ L Kevon Test A-a O2 Gradient (5-10) mmHg Hematocrit (37-47) % Hgb O2 Saturation (95-100) % Carboxyhemoglobin (0.4-20.1) %THgb Methemoglobin (0.4-1.5) % Total Hemoglobin (12-16) g/dL Sodium 125 L (131-143) mmol/L Potassium 3.8 (3.5-5.0) mmol/L Glucose 432 H (70-115) mg/dL Ionized Calcium (1.1-1.4) mmol/L O2 Delivery Device FiO2 % Zig Zag Stitcher ID Chloride 88 L (98-107) mmol/L Carbon Dioxide 18 L (22-29) mmol/L Anion Gap 22.8 H (5-19) BUN 75 H (6-20) mg/dL Creatinine 2.1 H (0.5-0.9) mg/dL GFR Calculation 24.9 L (90-130) mL/min POC Glucose (70-110) mg/dL Estimat Average Gl ucose Hemoglobin A1c (4.0-6.0) % Calculated Osmolal ity 301 H (285-295) mOsm/k g Lactic Acid (0.5-2.2) mmol/L Calcium 7.8 L (8.5-10.5) mg/dL Magnesium (1.7-2.3) mg/dL Total Bilirubin 0.5 (0.15-1.2) mg/dL AST 14 (0-32) U/L ALT 13 (0-33) U/L Alkaline Phosphata se 387 H (35-105) IU/L Troponin T Baselin e 10 (0-10) ng/L Troponin T 120 Min [place] (0-10) ng/L Delta Troponin T (0-10) ABS# Troponin T Hi Sens 6Hr (0-10) ng/L Troponin T Hi Sens 6Hr Delta (0-12) ng/L Total Protein 7.4 (6.6-8.7) g/dL Albumin 2.2 L (3.5-5.2) g/dL Globulin 5.2 H (1.3-4.6) g/dL Lipase 32 (13-60) U/L Procalcitonin (0-0.5) ng/mL Urine Color (Yellow) Urine Appearance (CLEAR) Urine pH (5-7) Ur Specific Gravit y (1.005-1.030) Urine Protein (Negative) Urine Glucose (UA) (Normal) Urine Ketones (Negative) Urine Blood (Negative) Urine Nitrate (Negative) Urine Bilirubin (Negative) Urine Urobilinogen (Negative) mg/dL Ur Leukocyte Fartun ase (Negative) Urine RBC (0-2) /hpf Urine WBC (0-5) /hpf Ur Squamous Epith Cells (0-5) /hpf Amorphous Sediment Urine Bacteria (NONE) /hpf Urine Mucus /hpf Salicylates (3-10) mg/dL Urine Opiates Scre en (Negative) ng/mL Acetaminophen (10-30) ug/mL Ur Barbiturates Sc reen (Negative) ng/mL Ur Phencyclidine S crn (Negative) ng/mL Ur Amphetamines Sc reen (Negative) ng/mL U Benzodiazepines Scrn (Negative) ng/mL Urine Cocaine Scre en (Negative) ng/mL U Marijuana (THC) Screen (Negative) ng/mL Ethyl Alcohol (0-10) mg/dL Serum Ketones (Negative) Nasal/Oral COVID-1 9 PCR SARS-CoV-2 Ag (Rap id) (Negative) 10/11/20 10/11/20 10/11/20 Range/Units 13:36 16:02 17:17 WBC (4.0-10.0) 10^3/ uL RBC (4.1-5.3) 10^6/u L Hgb (11.5-15.3) g/dL Hct (37.0-47.0) % MCV (81-99) fL MCH (28.0-34.0) pg MCHC (30.0-36.0) g/dL RDW (12.1-15.1) % Plt Count (130-400) 10^3/c mm MPV (7.4-10.4) fL Total Counted (0-100) Atypical Lymphs % (0-5) % Absolute Neutrophi ls (1.4-6.5) 10^3/c mm Segmented Neutroph ils % Abs Segm Neuts (Ma n) (1.6-7.1) 10/cmm Band Neutrophils % Abs Band Neuts (Ma n) (0.0-1.2) 10^3/c mm Lymphocytes (Manua l) % Monocytes (Manual) % Absolute Monocytes (0.1-0.6) 10^3/c mm Eosinophils (Manua l) % Absolute Eosinophi ls (0.0-0.7) 10^3/c mm Basophils (Manual) % Absolute Basophils (0.0-0.2) 10^3/c mm Platelet Estimate (Normal) D-Dimer (0-0.59) ug/mIFE U Specimen Type Sample Site ABG pH (7.35-7.45) ABG pCO2 (35-45) mmHg ABG pO2 (80.0-100.0) mmH g ABG HCO3 (22-26) mmol/L ABG O2 Saturation ABG Base Excess (-2.0-2.0) mmol/ L Kevon Test A-a O2 Gradient (5-10) mmHg Hematocrit (37-47) % Hgb O2 Saturation (95-100) % Carboxyhemoglobin (0.4-20.1) %THgb Methemoglobin (0.4-1.5) % Total Hemoglobin (12-16) g/dL Sodium (131-143) mmol/L Potassium (3.5-5.0) mmol/L Glucose (70-115) mg/dL Ionized Calcium (1.1-1.4) mmol/L O2 Delivery Device FiO2 % Zig Zag Stitcher ID Chloride (98-107) mmol/L Carbon Dioxide (22-29) mmol/L Anion Gap (5-19) BUN (6-20) mg/dL Creatinine (0.5-0.9) mg/dL GFR Calculation (90-130) mL/min POC Glucose (70-110) mg/dL Estimat Average Gl ucose Hemoglobin A1c (4.0-6.0) % Calculated Osmolal ity (285-295) mOsm/k g Lactic Acid (0.5-2.2) mmol/L Calcium (8.5-10.5) mg/dL Magnesium 3.2 H (1.7-2.3) mg/dL Total Bilirubin (0.15-1.2) mg/dL AST (0-32) U/L ALT (0-33) U/L Alkaline Phosphata se (35-105) IU/L Troponin T Baselin e (0-10) ng/L Troponin T 120 Min [place] (0-10) ng/L Delta Troponin T (0-10) ABS# Troponin T Hi Sens 6Hr (0-10) ng/L Troponin T Hi Sens 6Hr Delta (0-12) ng/L Total Protein (6.6-8.7) g/dL Albumin (3.5-5.2) g/dL Globulin (1.3-4.6) g/dL Lipase 41 (13-60) U/L Procalcitonin (0-0.5) ng/mL Urine Color (Yellow) Urine Appearance (CLEAR) Urine pH (5-7) Ur Specific Gravit y (1.005-1.030) Urine Protein (Negative) Urine Glucose (UA) (Normal) Urine Ketones (Negative) Urine Blood (Negative) Urine Nitrate (Negative) Urine Bilirubin (Negative) Urine Urobilinogen (Negative) mg/dL Ur Leukocyte Fartun ase (Negative) Urine RBC (0-2) /hpf Urine WBC (0-5) /hpf Ur Squamous Epith Cells (0-5) /hpf Amorphous Sediment Urine Bacteria (NONE) /hpf Urine Mucus /hpf Salicylates < 0.3 L (3-10) mg/dL Urine Opiates Scre en (Negative) ng/mL Acetaminophen < 5.0 L (10-30) ug/mL Ur Barbiturates Sc reen (Negative) ng/mL Ur Phencyclidine S crn (Negative) ng/mL Ur Amphetamines Sc reen (Negative) ng/mL U Benzodiazepines Scrn (Negative) ng/mL Urine Cocaine Scre en (Negative) ng/mL U Marijuana (THC) Screen (Negative) ng/mL Ethyl Alcohol < 10 (0-10) mg/dL Serum Ketones Negative (Negative) Nasal/Oral COVID-1 9 PCR Negative SARS-CoV-2 Ag (Rap id) Negative (Negative) 10/11/20 10/11/20 10/11/20 Range/Units 18:10 19:26 20:05 WBC (4.0-10.0) 10^3/ uL RBC (4.1-5.3) 10^6/u L Hgb (11.5-15.3) g/dL Hct (37.0-47.0) % MCV (81-99) fL MCH (28.0-34.0) pg MCHC (30.0-36.0) g/dL RDW (12.1-15.1) % Plt Count (130-400) 10^3/c mm MPV (7.4-10.4) fL Total Counted (0-100) Atypical Lymphs % (0-5) % Absolute Neutrophi ls (1.4-6.5) 10^3/c mm Segmented Neutroph ils % Abs Segm Neuts (Ma n) (1.6-7.1) 10/cmm Band Neutrophils % Abs Band Neuts (Ma n) (0.0-1.2) 10^3/c mm Lymphocytes (Manua l) % Monocytes (Manual) % Absolute Monocytes (0.1-0.6) 10^3/c mm Eosinophils (Manua l) % Absolute Eosinophi ls (0.0-0.7) 10^3/c mm Basophils (Manual) % Absolute Basophils (0.0-0.2) 10^3/c mm Platelet Estimate (Normal) D-Dimer (0-0.59) ug/mIFE U Specimen Type Sample Site ABG pH (7.35-7.45) ABG pCO2 (35-45) mmHg ABG pO2 (80.0-100.0) mmH g ABG HCO3 (22-26) mmol/L ABG O2 Saturation ABG Base Excess (-2.0-2.0) mmol/ L Kevon Test A-a O2 Gradient (5-10) mmHg Hematocrit (37-47) % Hgb O2 Saturation (95-100) % Carboxyhemoglobin (0.4-20.1) %THgb Methemoglobin (0.4-1.5) % Total Hemoglobin (12-16) g/dL Sodium (131-143) mmol/L Potassium (3.5-5.0) mmol/L Glucose (70-115) mg/dL Ionized Calcium (1.1-1.4) mmol/L O2 Delivery Device FiO2 % Zig Zag Stitcher ID Chloride (98-107) mmol/L Carbon Dioxide (22-29) mmol/L Anion Gap (5-19) BUN (6-20) mg/dL Creatinine (0.5-0.9) mg/dL GFR Calculation (90-130) mL/min POC Glucose 344 (70-110) mg/dL Estimat Average Gl ucose Hemoglobin A1c (4.0-6.0) % Calculated Osmolal ity (285-295) mOsm/k g Lactic Acid (0.5-2.2) mmol/L Calcium (8.5-10.5) mg/dL Magnesium (1.7-2.3) mg/dL Total Bilirubin (0.15-1.2) mg/dL AST (0-32) U/L ALT (0-33) U/L Alkaline Phosphata se (35-105) IU/L Troponin T Baselin e (0-10) ng/L Troponin T 120 Min [place] 10.33 H (0-10) ng/L Delta Troponin T 0.33 (0-10) ABS# Troponin T Hi Sens 6Hr 9.89 (0-10) ng/L Troponin T Hi Sens 6Hr Delta -0.11 L (0-12) ng/L Total Protein (6.6-8.7) g/dL Albumin (3.5-5.2) g/dL Globulin (1.3-4.6) g/dL Lipase (13-60) U/L Procalcitonin (0-0.5) ng/mL Urine Color (Yellow) Urine Appearance (CLEAR) Urine pH (5-7) Ur Specific Gravit y (1.005-1.030) Urine Protein (Negative) Urine Glucose (UA) (Normal) Urine Ketones (Negative) Urine Blood (Negative) Urine Nitrate (Negative) Urine Bilirubin (Negative) Urine Urobilinogen (Negative) mg/dL Ur Leukocyte Fartun ase (Negative) Urine RBC (0-2) /hpf Urine WBC (0-5) /hpf Ur Squamous Epith Cells (0-5) /hpf Amorphous Sediment Urine Bacteria (NONE) /hpf Urine Mucus /hpf Salicylates (3-10) mg/dL Urine Opiates Scre en (Negative) ng/mL Acetaminophen (10-30) ug/mL Ur Barbiturates Sc reen (Negative) ng/mL Ur Phencyclidine S crn (Negative) ng/mL Ur Amphetamines Sc reen (Negative) ng/mL U Benzodiazepines Scrn (Negative) ng/mL Urine Cocaine Scre en (Negative) ng/mL U Marijuana (THC) Screen (Negative) ng/mL Ethyl Alcohol (0-10) mg/dL Serum Ketones (Negative) Nasal/Oral COVID-1 9 PCR SARS-CoV-2 Ag (Rap id) (Negative) 10/11/20 10/11/20 10/11/20 Range/Units 20:05 20:05 20:15 WBC (4.0-10.0) 10^3/ uL RBC (4.1-5.3) 10^6/u L Hgb (11.5-15.3) g/dL Hct (37.0-47.0) % MCV (81-99) fL MCH (28.0-34.0) pg MCHC (30.0-36.0) g/dL RDW (12.1-15.1) % Plt Count (130-400) 10^3/c mm MPV (7.4-10.4) fL Total Counted (0-100) Atypical Lymphs % (0-5) % Absolute Neutrophi ls (1.4-6.5) 10^3/c mm Segmented Neutroph ils % Abs Segm Neuts (Ma n) (1.6-7.1) 10/cmm Band Neutrophils % Abs Band Neuts (Ma n) (0.0-1.2) 10^3/c mm Lymphocytes (Manua l) % Monocytes (Manual) % Absolute Monocytes (0.1-0.6) 10^3/c mm Eosinophils (Manua l) % Absolute Eosinophi ls (0.0-0.7) 10^3/c mm Basophils (Manual) % Absolute Basophils (0.0-0.2) 10^3/c mm Platelet Estimate (Normal) D-Dimer (0-0.59) ug/mIFE U Specimen Type Sample Site ABG pH (7.35-7.45) ABG pCO2 (35-45) mmHg ABG pO2 (80.0-100.0) mmH g ABG HCO3 (22-26) mmol/L ABG O2 Saturation ABG Base Excess (-2.0-2.0) mmol/ L [place] Test A-a O2 Gradient (5-10) mmHg Hematocrit (37-47) % Hgb O2 Saturation (95-100) % Carboxyhemoglobin (0.4-20.1) %THgb Methemoglobin (0.4-1.5) % Total Hemoglobin (12-16) g/dL Sodium (131-143) mmol/L Potassium (3.5-5.0) mmol/L Glucose (70-115) mg/dL Ionized Calcium (1.1-1.4) mmol/L O2 Delivery Device FiO2 % Zig Zag Stit[employer] ID Chloride (98-107) mmol/L Carbon Dioxide (22-29) mmol/L Anion Gap (5-19) BUN (6-20) mg/dL Creatinine (0.5-0.9) mg/dL GFR Calculation (90-130) mL/min POC Glucose (70-110) mg/dL Estimat Average Gl ucose Hemoglobin A1c (4.0-6.0) % Calculated Osmolal ity (285-295) mOsm/k g Lactic Acid 1.5 (0.5-2.2) mmol/L Calcium (8.5-10.5) mg/dL Magnesium (1.7-2.3) mg/dL Total Bilirubin (0.15-1.2) mg/dL AST (0-32) U/L ALT (0-33) U/L Alkaline Phosphata se (35-105) IU/L Troponin T Baselin e (0-10) ng/L Troponin T 120 Min [place] (0-10) ng/L Delta Troponin T (0-10) ABS# Troponin T Hi Sens 6Hr (0-10) ng/L Troponin T Hi Sens 6Hr Delta (0-12) ng/L Total Protein (6.6-8.7) g/dL Albumin (3.5-5.2) g/dL Globulin (1.3-4.6) g/dL Lipase (13-60) U/L Procalcitonin 10.17 H (0-0.5) ng/mL Urine Color (Yellow) Urine Appearance (CLEAR) Urine pH (5-7) Ur Specific Gravit y (1.005-1.030) Urine Protein (Negative) Urine Glucose (UA) (Normal) Urine Ketones (Negative) Urine Blood (Negative) Urine Nitrate (Negative) Urine Bilirubin (Negative) Urine Urobilinogen (Negative) mg/dL Ur Leukocyte Fartun ase (Negative) Urine RBC (0-2) /hpf Urine WBC (0-5) /hpf Ur Squamous Epith Cells (0-5) /hpf Amorphous Sediment Urine Bacteria (NONE) /hpf Urine Mucus /hpf Salicylates (3-10) mg/dL Urine Opiates Scre en Negative (Negative) ng/mL Acetaminophen (10-30) ug/mL Ur Barbiturates Sc reen Negative (Negative) ng/mL Ur Phencyclidine S crn Negative (Negative) ng/mL Ur Amphetamines Sc reen Negative (Negative) ng/mL U Benzodiazepines Scrn Negative (Negative) ng/mL Urine Cocaine Scre en Negative (Negative) ng/mL U Marijuana (THC) Screen Negative (Negative) ng/mL Ethyl Alcohol (0-10) mg/dL Serum Ketones (Negative) Nasal/Oral COVID-1 9 PCR SARS-CoV-2 Ag (Rap id) (Negative) 10/11/20 Range/Units 20:40 WBC (4.0-10.0) 10^3/ uL RBC (4.1-5.3) 10^6/u L Hgb (11.5-15.3) g/dL Hct (37.0-47.0) % MCV (81-99) fL MCH (28.0-34.0) pg MCHC (30.0-36.0) g/dL RDW (12.1-15.1) % Plt Count (130-400) 10^3/c mm MPV (7.4-10.4) fL Total Counted (0-100) Atypical Lymphs % (0-5) % Absolute Neutrophi ls (1.4-6.5) 10^3/c mm Segmented Neutroph ils % Abs Segm Neuts (Ma n) (1.6-7.1) 10/cmm Band Neutrophils % Abs Band Neuts (Ma n) (0.0-1.2) 10^3/c mm Lymphocytes (Manua [place]) % Monocytes (Manual) % Absolute Monocytes (0.1-0.6) 10^3/c mm Eosinophils (Manua l) % Absolute Eosinophi ls (0.0-0.7) 10^3/c mm Basophils (Manual) % Absolute Basophils (0.0-0.2) 10^3/c mm Platelet Estimate (Normal) D-Dimer (0-0.59) ug/mIFE U Specimen Type Sample Site ABG pH (7.35-7.45) ABG pCO2 (35-45) mmHg ABG pO2 (80.0-100.0) mmH g ABG HCO3 (22-26) mmol/L ABG O2 Saturation ABG Base Excess (-2.0-2.0) mmol/ L [place] Test A-a O2 Gradient (5-10) mmHg Hematocrit (37-47) % Hgb O2 Saturation (95-100) % Carboxyhemoglobin (0.4-20.1) %THgb Methemoglobin (0.4-1.5) % Total Hemoglobin (12-16) g/dL Sodium (131-143) mmol/L Potassium (3.5-5.0) mmol/L Glucose (70-115) mg/dL Ionized Calcium (1.1-1.4) mmol/L O2 Delivery Device FiO2 % [employer] ID Chloride (98-107) mmol/L Carbon Dioxide (22-29) mmol/L Anion Gap (5-19) BUN (6-20) mg/dL Creatinine (0.5-0.9) mg/dL GFR Calculation (90-130) mL/min POC Glucose (70-110) mg/dL Estimat Average Gl ucose Hemoglobin A1c (4.0-6.0) % Calculated Osmolal ity (285-295) mOsm/k g Lactic Acid (0.5-2.2) mmol/L Calcium (8.5-10.5) mg/dL Magnesium (1.7-2.3) mg/dL Total Bilirubin (0.15-1.2) mg/dL AST (0-32) U/L ALT (0-33) U/L Alkaline Phosphata se (35-105) IU/L Troponin T Baselin e (0-10) ng/L Troponin T 120 Min [place] (0-10) ng/L Delta Troponin T (0-10) ABS# Troponin T Hi Sens 6Hr (0-10) ng/L Troponin T Hi Sens 6Hr Delta (0-12) ng/L Total Protein (6.6-8.7) g/dL Albumin (3.5-5.2) g/dL Globulin (1.3-4.6) g/dL Lipase (13-60) U/L Procalcitonin (0-0.5) ng/mL Urine Color Yellow (Yellow) Urine Appearance Hazy A (CLEAR) Urine pH 5.0 (5-7) Ur Specific Gravit y 1.015 (1.005-1.030) Urine Protein Neg (Negative) Urine Glucose (UA) 2+ (Normal) Urine Ketones Negative (Negative) Urine Blood 3+ H (Negative) Urine Nitrate Positive H (Negative) Urine Bilirubin Neg (Negative) Urine Urobilinogen Norm (Negative) mg/dL Ur Leukocyte Fartun ase Trace H (Negative) Urine RBC None (0-2) /hpf Urine WBC 10-15 H (0-5) /hpf Ur Squamous Epith Cells 0-4 H (0-5) /hpf Amorphous Sediment Not Reportable Urine Bacteria 2+ H (NONE) /hpf Urine Mucus /hpf Salicylates (3-10) mg/dL Urine Opiates Scre en (Negative) ng/mL Acetaminophen (10-30) ug/mL Ur Barbiturates Sc reen (Negative) ng/mL Ur Phencyclidine S crn (Negative) ng/mL Ur Amphetamines Sc reen (Negative) ng/mL U Benzodiazepines Scrn (Negative) ng/mL Urine Cocaine Scre en (Negative) ng/mL U Marijuana (THC) Screen (Negative) ng/mL Ethyl Alcohol (0-10) mg/dL Serum Ketones (Negative) Nasal/Oral COVID-1 9 PCR SARS-CoV-2 Ag (Rap id) (Negative) Discharge Plan Discharge Patient Disposition: Admitted As Inpatient Admit Provider: Tony Hayes Clinical Impression: Acute alteration in mental status, Sepsis, Pneumonia, Acute renal failure Condition: Stable Discharge Diet: Usual diet Discharge Activity: Increase activity as tolerated Sign Out Sign Out Data: Patient Sign Out occurred on 10/11/20 at 18:30. Patient's care was discussed, and care was transferred from to Shanae Kaur. 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 (nsaid) Lumbar post-laminectomy syndrome Opioid contract exists Spinal stenosis, cervical region Ulnar nerve impingement Surgical History H/O carpal tunnel repair H/O neck surgery H/O rotator cuff surgery H/O tubal ligation History of hysterectomy History of lumbar fusion S/P left knee arthroscopy Family History Other CAD (coronary artery disease) Cancer Stroke Denies family history of Anesthesia complication Bleeding disorder Social History Smoking and tobacco status: former smoker Alcohol intake: former History of recent travel: No Course Vital Signs: Vital signs: Vital Signs Temperature 97.8 F 10/15/20 10:31 Pulse Rate 81 10/15/20 10:31 Respiratory Rate 16 10/15/20 10:31 Blood Pressure 161/78 10/15/20 10:31 Pulse Oximetry 97 10/15/20 10:31 MDM - Recheck/Abnormal Lab/Rx MDM Narrative: Medical decision making narrative: Case is turned over to me at change of shift from Dr. Eaton. Please see his note for his history, physical exam and medical decision-making notes. Patient appears septic secondary to pneumonia. She also has acute renal insufficiency. Urinalysis was contaminated so I am obtaining a catheterized specimen. Patient has an anion gap but is not acidotic. Lactic is pending. Patient has altered mental status with a high white count but Lovenox has been given so spinal tap will not be able to be performed at this time. Patient is hemodynamically stable with a GCS of 12. Case was endorsed to Dr. Hayes for admission to the ICU. He agrees to take the patient further care will be dictated by him. I have added antibiotics to cover for aspiration pneumonia. Patient is getting IV fluids for her renal insufficiency. Lab Data: Attestation: I reviewed the patient's lab results. Labs: Lab Results 10/11/20 10/11/20 10/11/20 Range/Units 12:00 12:00 12:00 WBC 23.1 H (4.0-10.0) 10^3/ uL RBC 4.49 (4.1-5.3) 10^6/u L Hgb 13.4 (11.5-15.3) g/dL Hct 41.6 (37.0-47.0) % MCV 92.7 (81-99) fL MCH 29.8 (28.0-34.0) pg MCHC 32.2 (30.0-36.0) g/dL RDW 14.6 (12.1-15.1) % Plt Count 256 (130-400) 10^3/c mm MPV 13.6 H (7.4-10.4) fL Total Counted 100 (0-100) Atypical Lymphs % 0.0 (0-5) % Absolute Neutrophi ls 19.4 H (1.4-6.5) 10^3/c mm Segmented Neutroph ils 76 % Abs Segm Neuts (Ma n) 17.6 H (1.6-7.1) 10/cmm Band Neutrophils 8.0 % Abs Band Neuts (Ma n) 1.8 H (0.0-1.2) 10^3/c mm Lymphocytes (Manua l) 11 % Monocytes (Manual) 5.0 % Absolute Monocytes 1.2 H (0.1-0.6) 10^3/c mm Eosinophils (Manua l) 0 % Absolute Eosinophi ls 0.0 (0.0-0.7) 10^3/c mm Basophils (Manual) 0.0 % Absolute Basophils 0.0 (0.0-0.2) 10^3/c mm Platelet Estimate Normal (Normal) D-Dimer 5.92 H (0-0.59) ug/mIFE U Specimen Type Sample Site ABG pH (7.35-7.45) ABG pCO2 (35-45) mmHg ABG pO2 (80.0-100.0) mmH g ABG HCO3 (22-26) mmol/L ABG O2 Saturation ABG Base Excess (-2.0-2.0) mmol/ L Kevon Test A-a O2 Gradient (5-10) mmHg Hematocrit (37-47) % Hgb O2 Saturation (95-100) % Carboxyhemoglobin (0.4-20.1) %THgb Methemoglobin (0.4-1.5) % Total Hemoglobin (12-16) g/dL Sodium (131-143) mmol/L Potassium (3.5-5.0) mmol/L Glucose (70-115) mg/dL Ionized Calcium (1.1-1.4) mmol/L O2 Delivery Device FiO2 % Zig Zag Stitcher ID Chloride (98-107) mmol/L Carbon Dioxide (22-29) mmol/L Anion Gap (5-19) BUN (6-20) mg/dL Creatinine (0.5-0.9) mg/dL GFR Calculation (90-130) mL/min POC Glucose (70-110) mg/dL Estimat Average Gl ucose 278 Hemoglobin A1c 11.3 H (4.0-6.0) % Calculated Osmolal ity (285-295) mOsm/k g Lactic Acid (0.5-2.2) mmol/L Calcium (8.5-10.5) mg/dL Magnesium (1.7-2.3) mg/dL Total Bilirubin (0.15-1.2) mg/dL AST (0-32) U/L ALT (0-33) U/L Alkaline Phosphata se (35-105) IU/L Troponin T Baselin e (0-10) ng/L Troponin T 120 Min [place] (0-10) ng/L Delta Troponin T (0-10) ABS# Troponin T Hi Sens 6Hr (0-10) ng/L Troponin T Hi Sens 6Hr Delta (0-12) ng/L Total Protein (6.6-8.7) g/dL Albumin (3.5-5.2) g/dL Globulin (1.3-4.6) g/dL Lipase (13-60) U/L Procalcitonin (0-0.5) ng/mL Urine Color (Yellow) Urine Appearance (CLEAR) Urine pH (5-7) Ur Specific Gravit y (1.005-1.030) Urine Protein (Negative) Urine Glucose (UA) (Normal) Urine Ketones (Negative) Urine Blood (Negative) Urine Nitrate (Negative) Urine Bilirubin (Negative) Urine Urobilinogen (Negative) mg/dL Ur Leukocyte Fartun ase (Negative) Urine RBC (0-2) /hpf Urine WBC (0-5) /hpf Ur Squamous Epith Cells (0-5) /hpf Amorphous Sediment Urine Bacteria (NONE) /hpf Urine Mucus /hpf Salicylates (3-10) mg/dL Urine Opiates Scre en (Negative) ng/mL Acetaminophen (10-30) ug/mL Ur Barbiturates Sc reen (Negative) ng/mL Ur Phencyclidine S crn (Negative) ng/mL Ur Amphetamines Sc reen (Negative) ng/mL U Benzodiazepines Scrn (Negative) ng/mL Urine Cocaine Scre en (Negative) ng/mL U Marijuana (THC) Screen (Negative) ng/mL Ethyl Alcohol (0-10) mg/dL Serum Ketones (Negative) Nasal/Oral COVID-1 9 PCR SARS-CoV-2 Ag (Rap id) (Negative) 10/11/20 10/11/20 10/11/20 Range/Units 12:51 13:26 13:26 WBC (4.0-10.0) 10^3/ uL RBC (4.1-5.3) 10^6/u L Hgb (11.5-15.3) g/dL Hct (37.0-47.0) % MCV (81-99) fL MCH (28.0-34.0) pg MCHC (30.0-36.0) g/dL RDW (12.1-15.1) % Plt Count (130-400) 10^3/c mm MPV (7.4-10.4) fL Total Counted (0-100) Atypical Lymphs % (0-5) % Absolute Neutrophi ls (1.4-6.5) 10^3/c mm Segmented Neutroph ils % Abs Segm Neuts (Ma n) (1.6-7.1) 10/cmm Band Neutrophils % Abs Band Neuts (Ma n) (0.0-1.2) 10^3/c mm Lymphocytes (Manua l) % Monocytes (Manual) % Absolute Monocytes (0.1-0.6) 10^3/c mm Eosinophils (Manua l) % Absolute Eosinophi ls (0.0-0.7) 10^3/c mm Basophils (Manual) % Absolute Basophils (0.0-0.2) 10^3/c mm Platelet Estimate (Normal) D-Dimer (0-0.59) ug/mIFE U Specimen Type Arterial Sample Site Radial, right ABG pH 7.35 (7.35-7.45) ABG pCO2 36.1 (35-45) mmHg ABG pO2 68.3 L (80.0-100.0) mmH g ABG HCO3 19.9 L (22-26) mmol/L ABG O2 Saturation 93.0 ABG Base Excess -5.1 L (-2.0-2.0) mmol/ L Kevon Test Pos A-a O2 Gradient 4.7 L (5-10) mmHg Hematocrit 37.4 (37-47) % Hgb O2 Saturation 90.4 L (95-100) % Carboxyhemoglobin 1.9 (0.4-20.1) %THgb Methemoglobin 1.0 (0.4-1.5) % Total Hemoglobin 12.2 (12-16) g/dL Sodium 126.0 L (131-143) mmol/L Potassium 3.6 (3.5-5.0) mmol/L Glucose 450.0 H (70-115) mg/dL Ionized Calcium 1.1 (1.1-1.4) mmol/L O2 Delivery Device Room air FiO2 21.0 % Zig Zag Stitcher ID [place] Chloride (98-107) mmol/L Carbon Dioxide (22-29) mmol/L Anion Gap (5-19) BUN (6-20) mg/dL Creatinine (0.5-0.9) mg/dL GFR Calculation (90-130) mL/min POC Glucose (70-110) mg/dL Estimat Average Gl ucose Hemoglobin A1c (4.0-6.0) % Calculated Osmolal ity (285-295) mOsm/k g Lactic Acid (0.5-2.2) mmol/L Calcium (8.5-10.5) mg/dL Magnesium (1.7-2.3) mg/dL Total Bilirubin (0.15-1.2) mg/dL AST (0-32) U/L ALT (0-33) U/L Alkaline Phosphata se (35-105) IU/L Troponin T Baselin e (0-10) ng/L Troponin T 120 Min [place] (0-10) ng/L Delta Troponin T (0-10) ABS# Troponin T Hi Sens 6Hr (0-10) ng/L Troponin T Hi Sens 6Hr Delta (0-12) ng/L Total Protein (6.6-8.7) g/dL Albumin (3.5-5.2) g/dL Globulin (1.3-4.6) g/dL Lipase (13-60) U/L Procalcitonin (0-0.5) ng/mL Urine Color Yellow (Yellow) Urine Appearance Hazy A (CLEAR) Urine pH 5 (5-7) Ur Specific Gravit y 1.010 (1.005-1.030) Urine Protein Neg (Negative) Urine Glucose (UA) 4+ H (Normal) Urine Ketones 1+ H (Negative) Urine Blood 3+ H (Negative) Urine Nitrate Positive H (Negative) Urine Bilirubin Neg (Negative) Urine Urobilinogen Norm (Negative) mg/dL Ur Leukocyte Fartun ase 1+ H (Negative) Urine RBC 5-10 H (0-2) /hpf Urine WBC 55-80 H (0-5) /hpf Ur Squamous Epith Cells 25-40 H (0-5) /hpf Amorphous Sediment Not Reportable Urine Bacteria 3+ H (NONE) /hpf Urine Mucus 1+ /hpf Salicylates (3-10) mg/dL Urine Opiates Scre en Negative (Negative) ng/mL Acetaminophen (10-30) ug/mL Ur Barbiturates Sc reen Negative (Negative) ng/mL Ur Phencyclidine S crn Negative (Negative) ng/mL Ur Amphetamines Sc reen Negative (Negative) ng/mL U Benzodiazepines Scrn Negative (Negative) ng/mL Urine Cocaine Scre en Negative (Negative) ng/mL U Marijuana (THC) Screen Negative (Negative) ng/mL Ethyl Alcohol (0-10) mg/dL Serum Ketones (Negative) Nasal/Oral COVID-1 9 PCR SARS-CoV-2 Ag (Rap id) (Negative) 10/11/20 10/11/20 10/11/20 Range/Units 13:36 13:36 13:36 WBC (4.0-10.0) 10^3/ uL RBC (4.1-5.3) 10^6/u L Hgb (11.5-15.3) g/dL Hct (37.0-47.0) % MCV (81-99) fL MCH (28.0-34.0) pg MCHC (30.0-36.0) g/dL RDW (12.1-15.1) % Plt Count (130-400) 10^3/c mm MPV (7.4-10.4) fL Total Counted (0-100) Atypical Lymphs % (0-5) % Absolute Neutrophi ls (1.4-6.5) 10^3/c mm Segmented Neutroph ils % Abs Segm Neuts (Ma n) (1.6-7.1) 10/cmm Band Neutrophils % Abs Band Neuts (Ma n) (0.0-1.2) 10^3/c mm Lymphocytes (Manua l) % Monocytes (Manual) % Absolute Monocytes (0.1-0.6) 10^3/c mm Eosinophils (Manua l) % Absolute Eosinophi ls (0.0-0.7) 10^3/c mm Basophils (Manual) % Absolute Basophils (0.0-0.2) 10^3/c mm Platelet Estimate (Normal) D-Dimer (0-0.59) ug/mIFE U Specimen Type Sample Site ABG pH (7.35-7.45) ABG pCO2 (35-45) mmHg ABG pO2 (80.0-100.0) mmH g ABG HCO3 (22-26) mmol/L ABG O2 Saturation ABG Base Excess (-2.0-2.0) mmol/ L Kevon Test A-a O2 Gradient (5-10) mmHg Hematocrit (37-47) % Hgb O2 Saturation (95-100) % Carboxyhemoglobin (0.4-20.1) %THgb Methemoglobin (0.4-1.5) % Total Hemoglobin (12-16) g/dL Sodium 125 L (131-143) mmol/L Potassium 3.8 (3.5-5.0) mmol/L Glucose 432 H (70-115) mg/dL Ionized Calcium (1.1-1.4) mmol/L O2 Delivery Device FiO2 % Zig Zag Stitcher ID Chloride 88 L (98-107) mmol/L Carbon Dioxide 18 L (22-29) mmol/L Anion Gap 22.8 H (5-19) BUN 75 H (6-20) mg/dL Creatinine 2.1 H (0.5-0.9) mg/dL GFR Calculation 24.9 L (90-130) mL/min POC Glucose (70-110) mg/dL Estimat Average Gl ucose Hemoglobin A1c (4.0-6.0) % Calculated Osmolal ity 301 H (285-295) mOsm/k g Lactic Acid (0.5-2.2) mmol/L Calcium 7.8 L (8.5-10.5) mg/dL Magnesium (1.7-2.3) mg/dL Total Bilirubin 0.5 (0.15-1.2) mg/dL AST 14 (0-32) U/L ALT 13 (0-33) U/L Alkaline Phosphata se 387 H (35-105) IU/L Troponin T Baselin e 10 (0-10) ng/L Troponin T 120 Min [place] (0-10) ng/L Delta Troponin T (0-10) ABS# Troponin T Hi Sens 6Hr (0-10) ng/L Troponin T Hi Sens 6Hr Delta (0-12) ng/L Total Protein 7.4 (6.6-8.7) g/dL Albumin 2.2 L (3.5-5.2) g/dL Globulin 5.2 H (1.3-4.6) g/dL Lipase 32 (13-60) U/L Procalcitonin (0-0.5) ng/mL Urine Color (Yellow) Urine Appearance (CLEAR) Urine pH (5-7) Ur Specific Gravit y (1.005-1.030) Urine Protein (Negative) Urine Glucose (UA) (Normal) Urine Ketones (Negative) Urine Blood (Negative) Urine Nitrate (Negative) Urine Bilirubin (Negative) Urine Urobilinogen (Negative) mg/dL Ur Leukocyte Fartun ase (Negative) Urine RBC (0-2) /hpf Urine WBC (0-5) /hpf Ur Squamous Epith Cells (0-5) /hpf Amorphous Sediment Urine Bacteria (NONE) /hpf Urine Mucus /hpf Salicylates (3-10) mg/dL Urine Opiates Scre en (Negative) ng/mL Acetaminophen (10-30) ug/mL Ur Barbiturates Sc reen (Negative) ng/mL Ur Phencyclidine S crn (Negative) ng/mL Ur Amphetamines Sc reen (Negative) ng/mL U Benzodiazepines Scrn (Negative) ng/mL Urine Cocaine Scre en (Negative) ng/mL U Marijuana (THC) Screen (Negative) ng/mL Ethyl Alcohol (0-10) mg/dL Serum Ketones (Negative) Nasal/Oral COVID-1 9 PCR SARS-CoV-2 Ag (Rap id) (Negative) 10/11/20 10/11/20 10/11/20 Range/Units 13:36 16:02 17:17 WBC (4.0-10.0) 10^3/ uL RBC (4.1-5.3) 10^6/u L Hgb (11.5-15.3) g/dL Hct (37.0-47.0) % MCV (81-99) fL MCH (28.0-34.0) pg MCHC (30.0-36.0) g/dL RDW (12.1-15.1) % Plt Count (130-400) 10^3/c mm MPV (7.4-10.4) fL Total Counted (0-100) Atypical Lymphs % (0-5) % Absolute Neutrophi ls (1.4-6.5) 10^3/c mm Segmented Neutroph ils % Abs Segm Neuts (Ma n) (1.6-7.1) 10/cmm Band Neutrophils % Abs Band Neuts (Ma n) (0.0-1.2) 10^3/c mm Lymphocytes (Manua l) % Monocytes (Manual) % Absolute Monocytes (0.1-0.6) 10^3/c mm Eosinophils (Manua l) % Absolute Eosinophi ls (0.0-0.7) 10^3/c mm Basophils (Manual) % Absolute Basophils (0.0-0.2) 10^3/c mm Platelet Estimate (Normal) D-Dimer (0-0.59) ug/mIFE U Specimen Type Sample Site ABG pH (7.35-7.45) ABG pCO2 (35-45) mmHg ABG pO2 (80.0-100.0) mmH g ABG HCO3 (22-26) mmol/L ABG O2 Saturation ABG Base Excess (-2.0-2.0) mmol/ L Kevon Test A-a O2 Gradient (5-10) mmHg Hematocrit (37-47) % Hgb O2 Saturation (95-100) % Carboxyhemoglobin (0.4-20.1) %THgb Methemoglobin (0.4-1.5) % Total Hemoglobin (12-16) g/dL Sodium (131-143) mmol/L Potassium (3.5-5.0) mmol/L Glucose (70-115) mg/dL Ionized Calcium (1.1-1.4) mmol/L O2 Delivery Device FiO2 % Zig Zag Stitcher ID Chloride (98-107) mmol/L Carbon Dioxide (22-29) mmol/L Anion Gap (5-19) BUN (6-20) mg/dL Creatinine (0.5-0.9) mg/dL GFR Calculation (90-130) mL/min POC Glucose (70-110) mg/dL Estimat Average Gl ucose Hemoglobin A1c (4.0-6.0) % Calculated Osmolal ity (285-295) mOsm/k g Lactic Acid (0.5-2.2) mmol/L Calcium (8.5-10.5) mg/dL Magnesium 3.2 H (1.7-2.3) mg/dL Total Bilirubin (0.15-1.2) mg/dL AST (0-32) U/L ALT (0-33) U/L Alkaline Phosphata se (35-105) IU/L Troponin T Baselin e (0-10) ng/L Troponin T 120 Min [place] (0-10) ng/L Delta Troponin T (0-10) ABS# Troponin T Hi Sens 6Hr (0-10) ng/L Troponin T Hi Sens 6Hr Delta (0-12) ng/L Total Protein (6.6-8.7) g/dL Albumin (3.5-5.2) g/dL Globulin (1.3-4.6) g/dL Lipase 41 (13-60) U/L Procalcitonin (0-0.5) ng/mL Urine Color (Yellow) Urine Appearance (CLEAR) Urine pH (5-7) Ur Specific Gravit y (1.005-1.030) Urine Protein (Negative) Urine Glucose (UA) (Normal) Urine Ketones (Negative) Urine Blood (Negative) Urine Nitrate (Negative) Urine Bilirubin (Negative) Urine Urobilinogen (Negative) mg/dL Ur Leukocyte Fartun ase (Negative) Urine RBC (0-2) /hpf Urine WBC (0-5) /hpf Ur Squamous Epith Cells (0-5) /hpf Amorphous Sediment Urine Bacteria (NONE) /hpf Urine Mucus /hpf Salicylates < 0.3 L (3-10) mg/dL Urine Opiates Scre en (Negative) ng/mL Acetaminophen < 5.0 L (10-30) ug/mL Ur Barbiturates Sc reen (Negative) ng/mL Ur Phencyclidine S crn (Negative) ng/mL Ur Amphetamines Sc reen (Negative) ng/mL U Benzodiazepines Scrn (Negative) ng/mL Urine Cocaine Scre en (Negative) ng/mL U Marijuana (THC) Screen (Negative) ng/mL Ethyl Alcohol < 10 (0-10) mg/dL Serum Ketones Negative (Negative) Nasal/Oral COVID-1 9 PCR Negative SARS-CoV-2 Ag (Rap id) Negative (Negative) 10/11/20 10/11/20 10/11/20 Range/Units 18:10 19:26 20:05 WBC (4.0-10.0) 10^3/ uL RBC (4.1-5.3) 10^6/u L Hgb (11.5-15.3) g/dL Hct (37.0-47.0) % MCV (81-99) fL MCH (28.0-34.0) pg MCHC (30.0-36.0) g/dL RDW (12.1-15.1) % Plt Count (130-400) 10^3/c mm MPV (7.4-10.4) fL Total Counted (0-100) Atypical Lymphs % (0-5) % Absolute Neutrophi ls (1.4-6.5) 10^3/c mm Segmented Neutroph ils % Abs Segm Neuts (Ma n) (1.6-7.1) 10/cmm Band Neutrophils % Abs Band Neuts (Ma n) (0.0-1.2) 10^3/c mm Lymphocytes (Manua l) % Monocytes (Manual) % Absolute Monocytes (0.1-0.6) 10^3/c mm Eosinophils (Manua l) % Absolute Eosinophi ls (0.0-0.7) 10^3/c mm Basophils (Manual) % Absolute Basophils (0.0-0.2) 10^3/c mm Platelet Estimate (Normal) D-Dimer (0-0.59) ug/mIFE U Specimen Type Sample Site ABG pH (7.35-7.45) ABG pCO2 (35-45) mmHg ABG pO2 (80.0-100.0) mmH g ABG HCO3 (22-26) mmol/L ABG O2 Saturation ABG Base Excess (-2.0-2.0) mmol/ L Kevon Test A-a O2 Gradient (5-10) mmHg Hematocrit (37-47) % Hgb O2 Saturation (95-100) % Carboxyhemoglobin (0.4-20.1) %THgb Methemoglobin (0.4-1.5) % Total Hemoglobin (12-16) g/dL Sodium (131-143) mmol/L Potassium (3.5-5.0) mmol/L Glucose (70-115) mg/dL Ionized Calcium (1.1-1.4) mmol/L O2 Delivery Device FiO2 % Zig Zag Stitcher ID Chloride (98-107) mmol/L Carbon Dioxide (22-29) mmol/L Anion Gap (5-19) BUN (6-20) mg/dL Creatinine (0.5-0.9) mg/dL GFR Calculation (90-130) mL/min POC Glucose 344 (70-110) mg/dL Estimat Average Gl ucose Hemoglobin A1c (4.0-6.0) % Calculated Osmolal ity (285-295) mOsm/k g Lactic Acid (0.5-2.2) mmol/L Calcium (8.5-10.5) mg/dL Magnesium (1.7-2.3) mg/dL Total Bilirubin (0.15-1.2) mg/dL AST (0-32) U/L ALT (0-33) U/L Alkaline Phosphata se (35-105) IU/L Troponin T Baselin e (0-10) ng/L Troponin T 120 Min [place] 10.33 H (0-10) ng/L Delta Troponin T 0.33 (0-10) ABS# Troponin T Hi Sens 6Hr 9.89 (0-10) ng/L Troponin T Hi Sens 6Hr Delta -0.11 L (0-12) ng/L Total Protein (6.6-8.7) g/dL Albumin (3.5-5.2) g/dL Globulin (1.3-4.6) g/dL Lipase (13-60) U/L Procalcitonin (0-0.5) ng/mL Urine Color (Yellow) Urine Appearance (CLEAR) Urine pH (5-7) Ur Specific Gravit y (1.005-1.030) Urine Protein (Negative) Urine Glucose (UA) (Normal) Urine Ketones (Negative) Urine Blood (Negative) Urine Nitrate (Negative) Urine Bilirubin (Negative) Urine Urobilinogen (Negative) mg/dL Ur Leukocyte Fartun ase (Negative) Urine RBC (0-2) /hpf Urine WBC (0-5) /hpf Ur Squamous Epith Cells (0-5) /hpf Amorphous Sediment Urine Bacteria (NONE) /hpf Urine Mucus /hpf Salicylates (3-10) mg/dL Urine Opiates Scre en (Negative) ng/mL Acetaminophen (10-30) ug/mL Ur Barbiturates Sc reen (Negative) ng/mL Ur Phencyclidine S crn (Negative) ng/mL Ur Amphetamines Sc reen (Negative) ng/mL U Benzodiazepines Scrn (Negative) ng/mL Urine Cocaine Scre en (Negative) ng/mL U Marijuana (THC) Screen (Negative) ng/mL Ethyl Alcohol (0-10) mg/dL Serum Ketones (Negative) Nasal/Oral COVID-1 9 PCR SARS-CoV-2 Ag (Rap id) (Negative) 10/11/20 10/11/20 10/11/20 Range/Units 20:05 20:05 20:15 WBC (4.0-10.0) 10^3/ uL RBC (4.1-5.3) 10^6/u L Hgb (11.5-15.3) g/dL Hct (37.0-47.0) % MCV (81-99) fL MCH (28.0-34.0) pg MCHC (30.0-36.0) g/dL RDW (12.1-15.1) % Plt Count (130-400) 10^3/c mm MPV (7.4-10.4) fL Total Counted (0-100) Atypical Lymphs % (0-5) % Absolute Neutrophi ls (1.4-6.5) 10^3/c mm Segmented Neutroph ils % Abs Segm Neuts (Ma n) (1.6-7.1) 10/cmm Band Neutrophils % Abs Band Neuts (Ma n) (0.0-1.2) 10^3/c mm Lymphocytes (Manua l) % Monocytes (Manual) % Absolute Monocytes (0.1-0.6) 10^3/c mm Eosinophils (Manua l) % Absolute Eosinophi ls (0.0-0.7) 10^3/c mm Basophils (Manual) % Absolute Basophils (0.0-0.2) 10^3/c mm Platelet Estimate (Normal) D-Dimer (0-0.59) ug/mIFE U Specimen Type Sample Site ABG pH (7.35-7.45) ABG pCO2 (35-45) mmHg ABG pO2 (80.0-100.0) mmH g ABG HCO3 (22-26) mmol/L ABG O2 Saturation ABG Base Excess (-2.0-2.0) mmol/ L Kevon Test A-a O2 Gradient (5-10) mmHg Hematocrit (37-47) % Hgb O2 Saturation (95-100) % Carboxyhemoglobin (0.4-20.1) %THgb Methemoglobin (0.4-1.5) % Total Hemoglobin (12-16) g/dL Sodium (131-143) mmol/L Potassium (3.5-5.0) mmol/L Glucose (70-115) mg/dL Ionized Calcium (1.1-1.4) mmol/L O2 Delivery Device FiO2 % Zig Zag Stit[employer] ID Chloride (98-107) mmol/L Carbon Dioxide (22-29) mmol/L Anion Gap (5-19) BUN (6-20) mg/dL Creatinine (0.5-0.9) mg/dL GFR Calculation (90-130) mL/min POC Glucose (70-110) mg/dL Estimat Average Gl ucose Hemoglobin A1c (4.0-6.0) % Calculated Osmolal ity (285-295) mOsm/k g Lactic Acid 1.5 (0.5-2.2) mmol/L Calcium (8.5-10.5) mg/dL Magnesium (1.7-2.3) mg/dL Total Bilirubin (0.15-1.2) mg/dL AST (0-32) U/L ALT (0-33) U/L Alkaline Phosphata se (35-105) IU/L Troponin T Baselin e (0-10) ng/L Troponin T 120 Min [place] (0-10) ng/L Delta Troponin T (0-10) ABS# Troponin T Hi Sens 6Hr (0-10) ng/L Troponin T Hi Sens 6Hr Delta (0-12) ng/L Total Protein (6.6-8.7) g/dL Albumin (3.5-5.2) g/dL Globulin (1.3-4.6) g/dL Lipase (13-60) U/L Procalcitonin 10.17 H (0-0.5) ng/mL Urine Color (Yellow) Urine Appearance (CLEAR) Urine pH (5-7) Ur Specific Gravit y (1.005-1.030) Urine Protein (Negative) Urine Glucose (UA) (Normal) Urine Ketones (Negative) Urine Blood (Negative) Urine Nitrate (Negative) Urine Bilirubin (Negative) Urine Urobilinogen (Negative) mg/dL Ur Leukocyte Fartun ase (Negative) Urine RBC (0-2) /hpf Urine WBC (0-5) /hpf Ur Squamous Epith Cells (0-5) /hpf Amorphous Sediment Urine Bacteria (NONE) /hpf Urine Mucus /hpf Salicylates (3-10) mg/dL Urine Opiates Scre en Negative (Negative) ng/mL Acetaminophen (10-30) ug/mL Ur Barbiturates Sc reen Negative (Negative) ng/mL Ur Phencyclidine S crn Negative (Negative) ng/mL Ur Amphetamines Sc reen Negative (Negative) ng/mL U Benzodiazepines Scrn Negative (Negative) ng/mL Urine Cocaine Scre en Negative (Negative) ng/mL U Marijuana (THC) Screen Negative (Negative) ng/mL Ethyl Alcohol (0-10) mg/dL Serum Ketones (Negative) Nasal/Oral COVID-1 9 PCR SARS-CoV-2 Ag (Rap id) (Negative) 10/11/20 Range/Units 20:40 WBC (4.0-10.0) 10^3/ uL RBC (4.1-5.3) 10^6/u L Hgb (11.5-15.3) g/dL Hct (37.0-47.0) % MCV (81-99) fL MCH (28.0-34.0) pg MCHC (30.0-36.0) g/dL RDW (12.1-15.1) % Plt Count (130-400) 10^3/c mm MPV (7.4-10.4) fL Total Counted (0-100) Atypical Lymphs % (0-5) % Absolute Neutrophi ls (1.4-6.5) 10^3/c mm Segmented Neutroph ils % Abs Segm Neuts (Ma n) (1.6-7.1) 10/cmm Band Neutrophils % Abs Band Neuts (Ma n) (0.0-1.2) 10^3/c mm Lymphocytes (Man[place]) % Monocytes (Manual) % Absolute Monocytes (0.1-0.6) 10^3/c mm Eosinophils (Man[place]) % Absolute Eosinophi ls (0.0-0.7) 10^3/c mm Basophils (Manual) % Absolute Basophils (0.0-0.2) 10^3/c mm Platelet Estimate (Normal) D-Dimer (0-0.59) ug/mIFE U Specimen Type Sample Site ABG pH (7.35-7.45) ABG pCO2 (35-45) mmHg ABG pO2 (80.0-100.0) mmH g ABG HCO3 (22-26) mmol/L ABG O2 Saturation ABG Base Excess (-2.0-2.0) mmol/ L [place] Test A-a O2 Gradient (5-10) mmHg Hematocrit (37-47) % Hgb O2 Saturation (95-100) % Carboxyhemoglobin (0.4-20.1) %THgb Methemoglobin (0.4-1.5) % Total Hemoglobin (12-16) g/dL Sodium (131-143) mmol/L Potassium (3.5-5.0) mmol/L Glucose (70-115) mg/dL Ionized Calcium (1.1-1.4) mmol/L O2 Delivery Device FiO2 % [employer] ID Chloride (98-107) mmol/L Carbon Dioxide (22-29) mmol/L Anion Gap (5-19) BUN (6-20) mg/dL Creatinine (0.5-0.9) mg/dL GFR Calculation (90-130) mL/min POC Glucose (70-110) mg/dL Estimat Average Gl ucose Hemoglobin A1c (4.0-6.0) % Calculated Osmolal ity (285-295) mOsm/k g Lactic Acid (0.5-2.2) mmol/L Calcium (8.5-10.5) mg/dL Magnesium (1.7-2.3) mg/dL Total Bilirubin (0.15-1.2) mg/dL AST (0-32) U/L ALT (0-33) U/L Alkaline Phosphata se (35-105) IU/L Troponin T Baselin e (0-10) ng/L Troponin T 120 Min [place] (0-10) ng/L Delta Troponin T (0-10) ABS# Troponin T Hi Sens 6Hr (0-10) ng/L Troponin T Hi Sens 6Hr Delta (0-12) ng/L Total Protein (6.6-8.7) g/dL Albumin (3.5-5.2) g/dL Globulin (1.3-4.6) g/dL Lipase (13-60) U/L Procalcitonin (0-0.5) ng/mL Urine Color Yellow (Yellow) Urine Appearance Hazy A (CLEAR) Urine pH 5.0 (5-7) Ur Specific Gravit y 1.015 (1.005-1.030) Urine Protein Neg (Negative) Urine Glucose (UA) 2+ (Normal) Urine Ketones Negative (Negative) Urine Blood 3+ H (Negative) Urine Nitrate Positive H (Negative) Urine Bilirubin Neg (Negative) Urine Urobilinogen Norm (Negative) mg/dL Ur Leukocyte Fartun ase Trace H (Negative) Urine RBC None (0-2) /hpf Urine WBC 10-15 H (0-5) /hpf Ur Squamous Epith Cells 0-4 H (0-5) /hpf Amorphous Sediment Not Reportable Urine Bacteria 2+ H (NONE) /hpf Urine Mucus /hpf Salicylates (3-10) mg/dL Urine Opiates Scre en (Negative) ng/mL Acetaminophen (10-30) ug/mL Ur Barbiturates Sc reen (Negative) ng/mL Ur Phencyclidine S crn (Negative) ng/mL Ur Amphetamines Sc reen (Negative) ng/mL U Benzodiazepines Scrn (Negative) ng/mL Urine Cocaine Scre en (Negative) ng/mL U Marijuana (THC) Screen (Negative) ng/mL Ethyl Alcohol (0-10) mg/dL Serum Ketones (Negative) Nasal/Oral COVID-1 9 PCR SARS-CoV-2 Ag (Rap id) (Negative) Imaging Data^: CT Chest: Radiologist's impression: [place] [id number] CT Scan Report Signed Patient: Analia Hurst Unit #: [id number] : 1970 Age/Sex: 49 / F ADM Date: 10/11/20 Loc: ER Room/Bed: Attending Dr: Ordering Provider/Ordering MD: Mukul Eaton DO Date of Service: 10/11/20 Procedure(s): CT angio chest PE protcl [id number] Accession Number(s): [id number] Report Number: [id number] PROCEDURE INFORMATION: Exam: CT Angiography Chest With Contrast Exam date and time: 10/11/2020 5:06 PM Age: 49 years old Clinical indication: Abnormal findings; Abnormal diagnostic tests; Elevated d-dimer; Prior surgery; Surgery date: 6+ months; Surgery type: C-sp; Patient HX: Covid precautions w elev d-dimer; Additional info: Elevated ddimer TECHNIQUE: Imaging protocol: Computed tomographic angiography of the chest with intravenous contrast. Axial, coronal and sagittal reformatted images were created and reviewed. 3D rendering (Not supervised by radiologist): MIP and/or 3D reconstructed images were created by the technologist. Radiation optimization: All CT scans at this facility use at least one of these dose optimization techniques: automated exposure control; mA and/or kV adjustment per patient size (includes targeted exams where dose is matched to clinical indication); or iterative reconstruction. Contrast material: VISI 320; Contrast volume: 70 ml; Contrast route: INTRAVENOUS (IV); COMPARISON: 1. CR XR chest 1V portable [id number] 10/11/2020 2:33 PM 2. Report from a prior CT scan of the abdomen and pelvis, dated July 09, 2017. RADIATION DOSE METRICS: Total DLP (mGy-cm): 543.06 FINDINGS: Pulmonary arteries: Contrast opacification satisfactory. No intraluminal filling defect. Aorta: Mild atherosclerotic disease. No aneurysm or dissection. Lungs: Patchy perihilar and suprahilar ground-glass and reticulonodular infiltrates with associated peribronchial thickening. No consolidation. Pleural space: Unremarkable. No pneumothorax. No pleural effusion. Heart: Unremarkable. No cardiomegaly. No pericardial effusion. Lymph nodes: No pathologically enlarged lymph nodes. Liver: Mild hepatomegaly. Mild splenomegaly. Adrenals: 2.6 cm low-density right adrenal nodule, previously described and likely an adenoma (no follow-up is indicated based on the imaging appearance). Bones/joints: No acute osseous abnormality. Mild degenerative changes of the spine. Partially visualized anterior cervical fusion hardware. Soft tissues: Unremarkable. CT/CT angio chest PE protcl [id number]: 1[address] No CT evidence of pulmonary embolism. 2. Patchy perihilar and suprahilar ground-glass and reticulonodular infiltrates with associated peribronchial thickening, compatible with airway inflammation/small airway disease. Atypical infection cannot be excluded. 3. Additional findings, as above. Radiation Dose CTDIVOL = (mGy): DLP = 543.06 (mGy-cm) Dictated By: Kwasi Henderson MD Signed By: Kwasi Henderson MD Signed Date/Time: 10/11/201908 DD/ 05 Discharge Plan Discharge Patient Disposition: Admitted As Inpatient Admit Provider: Tony Hayes Clinical Impression: Acute alteration in mental status, Sepsis, Pneumonia, Acute renal failure Condition: Stable Discharge Diet: Usual diet Discharge Activity: Increase activity as tolerated Sign Out Sign Out Data: Patient Sign Out occurred on 10/11/20 at 18:30. Patient's care was discussed, and care was transferred from to Shanae Kaur. Coding Level of Care Code ED Cd Technician for Felicia Fwd Exam Comprehensive
[2020-10-11 13:41] LABS: Absolute Neutrophil 19.4 10^3/cmm (1.4-6.5); Absolute Segmented Neutrophil 17.6 10/cmm (1.6-7.1); Band Neutrophils Absolute 1.8 10^3/cmm (0.0-1.2); Lymphocytes 11 %; Monocytes Absolute 1.2 10^3/cmm (0.1-0.6); Platelet Estimate Normal (Normal); Segmented Neutrophils 76 %; Total Cells Counted 100 (0-100)
[2020-10-11 13:53] LABS: Eosinophils 0 %
[2020-10-11 14:17] LABS: Alanine Aminotransferase 13 U/L (0-33); Albumin Level 2.2 g/dL (3.5-5.2); Alkaline Phosphatase 387 IU/L (35-105); Anion Gap 22.8 (5-19); Aspartate Amino Transferase 14 U/L (0-32); Blood Urea Nitrogen 75 mg/dL (6-20); Calcium 7.8 mg/dL (8.5-10.5); Carbon Dioxide 18 mmol/L (22-29); Chloride 88 mmol/L (98-107); Globulin 5.2 g/dL (1.3-4.6); Glomerular Filtration Rate 24.9 mL/min (90-130); Glucose 432 mg/dL (65-115); Osmolality Calculated 301 mOsm/kg (285-295); Potassium 3.8 mmol/L (3.5-5.1); Sodium 125 mmol/L (136-145); Total Bilirubin 0.5 mg/dL (0.15-1.2); Total Protein 7.4 g/dL (6.6-8.7)
--- NOTE | 2020-10-11 14:19 | ECG_ITS ---
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 Measurements Intervals [place] Rate: 86 P: 61 MT: 176 QRS: 75 QRSD: 101 T: 46 QT: 358 QTc: 430 Interpretive Statements SINUS RHYTHM Compared to ECG 01/14/2020 22:08:56 No significant changes Electronically Signed On 10-12-2020 20:05:22 SKIP MINER by Grayson Cota M.D. [email or web address] county medical centerEasyPaintavita health system.[employer]store/OM/[id number]
--- NOTE | 2020-10-11 14:19 | XR_ITS ---
WS: [id number] Portable AP upright chest, 10/11/2020 Clinical Data: dyspnea/cough Comparison: Portable chest, 06/26/2016. Findings: Bilateral patchy opacities are present throughout the lungs. This could represent diffuse p neumonia. The heart is normal. The aortic arch shows calcification. No pneumothorax is seen. The josé miguel ent has had an anterior cervical disc fusion. XR/XR chest 1V portable [id number] Impression: 1. Bilateral patchy opacities which may indicate diffuse pneumonia. 2. Recommend repeat chest x-ray in 2-3 days.
--- NOTE | 2020-10-11 14:19 | CTR_ITS ---
PROCEDURE INFORMATION: Exam: CT Head Without Contrast Exam date and time: 10/11/2020 3:03 PM Age: 49 years old Clinical indication: Altered mental status/memory loss; Additional info: AMS TECHNIQUE: Imaging protocol: Computed tomography of the head without contrast. Axial, coronal and sagittal reformatted images were created and reviewed. Radiation optimization: All CT scans at this facility use at least one of these dose optimization techniques: automated exposure control; mA and/or kV adjustment per patient size (includes targeted exams where dose is matched to clinical indication); or iterative reconstruction. COMPARISON: CT head wo con* [id number] 01/14/2020 8:06 PM RADIATION DOSE METRICS: Total DLP (mGy-cm): 1036.37 FINDINGS: Brain: No CT evidence of acute intracranial hemorrhage or acute territorial infarction. No significant mass effect or midline shift. Basal cisterns patent. Cerebral ventricles: Normal in size and configuration. Bones/joints: No acute osseous abnormality. Paranasal sinuses: Moderate ethmoid mucosal thickening. Mild sphenoid sinus mucosal thickening. Mastoid air cells: Grossly unremarkable. Vasculature: Mild calcific atherosclerotic disease in the cavernous internal carotid arteries. Soft tissues: Grossly unremarkable. CT/CT head wo con* [id number] IMPRESSION: 1. No CT evidence of acute intracranial pathology. 2. Additional findings, as above. Radiation Dose CTDIVOL = (mGy): DLP = 1036.37 (mGy-cm)
[2020-10-11 14:41] LABS: Add Urine Microscopic? YES; Bilirubin Urine Neg (Negative); Blood Urine 3+ (Negative); Glucose Urine UA 4+ (Normal); Ketones Urine 1+ (Negative); Leukocyte Esterase Urine 1+ (Negative); Nitrate Urine Positive (Negative); Protein Urine Neg (Negative); Urine Appearance Hazy (CLEAR); Urine Color Yellow (Yellow); Urobilinogen Urine Norm (Negative); pH Urine 5 (5-7)
[2020-10-11 14:45] LABS: Lipase 32 U/L (13-60)
[2020-10-11 14:46] LABS: Troponin(5th) Baseline 10 ng/L (0-10)
[2020-10-11 14:48] LABS: Amphetamines Screen Urine Negative (Negative); Barbiturates Screen Urine Negative (Negative); Benzodiazepines Screen Urine Negative (Negative); Cocaine Screen Urine Negative (Negative); Opiate Screen Urine Negative (Negative); PCP Screen Urine Negative (Negative); THC Screen Urine Negative (Negative)
[2020-10-11 14:48] LABS: D Dimer 5.92 ug/mIFEU (0-0.59)
--- NOTE | 2020-10-11 15:39 | CTR_ITS ---
PROCEDURE INFORMATION: Exam: CT Angiography Chest With Contrast Exam date and time: 10/11/2020 5:06 PM Age: 49 years old Clinical indication: Abnormal findings; Abnormal diagnostic tests; Elevated d-dimer; Prior surgery; Surgery date: 6+ months; Surgery type: C-sp; Patient HX: Covid precautions w elev d-dimer; Additional info: Elevated ddimer TECHNIQUE: Imaging protocol: Computed tomographic angiography of the chest with intravenous contrast. Axial, coronal and sagittal reformatted images were created and reviewed. 3D rendering (Not supervised by radiologist): MIP and/or 3D reconstructed images were created by the technologist. Radiation optimization: All CT scans at this facility use at least one of these dose optimization techniques: automated exposure control; mA and/or kV adjustment per patient size (includes targeted exams where dose is matched to clinical indication); or iterative reconstruction. Contrast material: VISI 320; Contrast volume: 70 ml; Contrast route: INTRAVENOUS (IV); COMPARISON: 1. CR XR chest 1V portable [id number] 10/11/2020 2:33 PM 2. Report from a prior CT scan of the abdomen and pelvis, dated July 09, 2017. RADIATION DOSE METRICS: Total DLP (mGy-cm): 543.06 FINDINGS: Pulmonary arteries: Contrast opacification satisfactory. No intraluminal filling defect. Aorta: Mild atherosclerotic disease. No aneurysm or dissection. Lungs: Patchy perihilar and suprahilar ground-glass and reticulonodular infiltrates with associated peribronchial thickening. No consolidation. Pleural space: Unremarkable. No pneumothorax. No pleural effusion. Heart: Unremarkable. No cardiomegaly. No pericardial effusion. Lymph nodes: No pathologically enlarged lymph nodes. Liver: Mild hepatomegaly. Mild splenomegaly. Adrenals: 2.6 cm low-density right adrenal nodule, previously described and likely an adenoma (no follow-up is indicated based on the imaging appearance). Bones/joints: No acute osseous abnormality. Mild degenerative changes of the spine. Partially visualized anterior cervical fusion hardware. Soft tissues: Unremarkable. CT/CT angio chest PE protcl [id number] IMPRESSION: 1. No CT evidence of pulmonary embolism. 2. Patchy perihilar and suprahilar ground-glass and reticulonodular infiltrates with associated peribronchial thickening, compatible with airway inflammation/small airway disease. Atypical infection cannot be excluded. 3. Additional findings, as above. Radiation Dose CTDIVOL = (mGy): DLP = 543.06 (mGy-cm)
[2020-10-11] MEDS: cefTRIAXone 1,000 MG in sodium chloride 0.9% (plus) 50 ML 100 MG IV ×2 (16:00→22:10)
[2020-10-11 16:08] LABS: Squamous Epithelial Cell Urine 25-40 /hpf (0-5); WBC Urine 55-80 /hpf (0-5)
[2020-10-11 16:09] LABS: Add Urine Culture? No; Bacteria Urine 3+ /hpf; Mucus Urine 1+ /hpf
--- NOTE | 2020-10-11 16:19 | ECG_ITS ---
[facility] Test Date: 2020-10-11 Pat Name: Analia Hurst Department: Room: Gender: Female Refund Clerk: : 1970 Requested By: Mukul sAhraf Order Number: [id number] Zachary MD: Grayson Cota M.D. Measurements Intervals [place] Rate: 87 P: 60 [place]: 169 QRS: 67 QRSD: 101 T: 29 QT: 358 QTc: 432 Interpretive Statements SINUS RHYTHM Compared to ECG 10/11/2020 14:59:46 No significant changes Electronically Signed On 10-12-2020 20:21:38 WEB COORDINATOR by Grayson Cota M.D. [email or web address] general [email or web address] Vector Systemsohiohealth marion [facility].[employer]/store/OM/[id number]
[2020-10-11 16:47] LABS: SARS Covid-2 Antigen Negative (Negative)
[2020-10-11] MEDS: iodixanol 320 mg/mL 100mL Btl IV (18:43)
[2020-10-11 18:55] LABS: Troponin 5 2HR 10.33 ng/L (0-10)
[2020-10-11 18:59] LABS: Troponin 5 2HR Delta 0.33 ABS# (0-10)
[2020-10-11 19:30] LABS: Glucose Point of Care 344 mg/dL (70-110)
[2020-10-11 19:31] LABS: Ketone (Acetest) Serum Negative (Negative)
[2020-10-11] MEDS: enoxaparin 100 mg/mL Syringe SUBCUT (19:36)
[2020-10-11] MEDS: insulin regular-human 100 units/1 mL 10 UNIT IVP (19:45)
--- NOTE | 2020-10-11 20:19 | ECG_ITS ---
[facility] Test Date: 2020-10-11 Pat Name: Analia Hurst Department: Room: Gender: Female Loom Blower: : 1970 Requested By: Mukul Ashraf Order Number: [id number] Zachary MD: Grayson Cota M.D. Measurements Intervals [place] Rate: 84 P: 67 [place]: 156 QRS: 81 QRSD: 96 T: 53 QT: 353 QTc: 418 Interpretive Statements SINUS RHYTHM Compared to ECG 10/11/2020 16:08:09 No significant changes Electronically Signed On 10-12-2020 20:21:21 CUSTODY ASSISTANT by Grayson Cota M.D. [email or web address] county hospitalTapImmunebarberton citizens hospital.[employer]/store/OM/[id number]
[2020-10-11 20:24] LABS: Lipase 41 U/L (13-60); Magnesium 3.2 mg/dL (1.7-2.3)
[2020-10-11 20:25] LABS: Acetaminophen < 5.0 ug/mL (10-30); Alcohol Level < 10 mg/dL (0-10); Salicylate < 0.3 mg/dL (3-10)
--- NOTE | 2020-10-11 20:43 | PM.HP ---
Providers/Chief Complaint Primary Care Provider: Yesica Bailey MD Chief Complaint: HIGH BS/ LETHARGY/ AMS History of Present Illness Analia Hurst is a 49 year old female who carries history of diabetes presented to the hospital with chief complaint of confusion. Patient was sent by her , at the time of arrival, she was very drowsy, received 1 dose of Narcan without much significant improvement, including therapeutic dose of Lovenox after few hours her mentation improved her GCS was 12, by the time I saw her she was able to tell me that her last few days she has not been feeling well, she has been very weak, sustained a fall, last 48 hours she has started experiencing burning sensation with urination. She is denying headache, blurry vision, neck pain, abdominal pain, chest pain. She is endorsing to smoking every day. She called her to ask about her children. told me that for last few days she has been spiking fever 102, has been very confused, sustained multiple falls at home, today she was not making sense at all and was very drowsy prompted her to call EMS. Diagnosis in the ER revealed normal hemodynamics, she is afebrile, abnormal UA reviewed, she has received 2 doses of ceftriaxone, 2 g received in the ER, she has already received Lovenox, lumbar puncture was not obtained, severe leukocytosis, she was drowsy when I was interviewing her, normal pH, hypoglycemia, corrected sodium 133, high anion gap however lactic acid is normal, BRYSON Patient was endorsing dysuria, Covid antigen negative CTA ruled out PE, showed patchy perihilar suprahilar groundglass opacities with peribronchial thickening Findings consistent with bronchitis Secondary to abnormal creatinine and dysuria I requested CT abdomen pelvis without contrast which showed bilateral pyelonephritis Review of Systems Const: Reports: fever(s), chills, body aches, fatigue and malaise Eyes: Denies: change in vision ENMT: Denies: throat pain Card: Denies: chest pain Resp: Denies: dyspnea GI: Reports: abdominal pain; Denies: diarrhea or constipation : Reports: flank pain, difficulty voiding and urinary frequency Musc: Denies: neck pain Skin/Breast: Denies: lesions Neuro: Reports: frequent falls and confusion Psych: Denies: anxiety Endo: Denies: polyuria Renny/Lymph: Denies: easy bruising All/Imm: Denies: urticaria Medications/Allergies Home Medications Medication Instructions Recorded Confirmed Last Taken Type multivitamin 1 cap PO QAM 12/02/19 10/11/20 10/10/20 History nitroglycerin 0.4 mg sublingual 0.4 mg SUBLINGUAL Q5M PRN 12/02/19 10/11/20 Unknown History tablet oxymetazoline 0.05 % nasal spray 2 spray INTRANASAL Q12H PRN 12/02/19 10/11/20 Unknown History prazosin 1 mg capsule 1 mg PO BEDTIME cap 12/02/19 10/11/20 10/10/20 History sumatriptan succinate 100 mg tablet 100 mg PO ONCE PRN 12/02/19 10/11/20 Unknown History famotidine 20 mg tablet 20 mg PO BID 30 Days #60 tab 04/09/20 10/11/20 10/10/20 Rx promethazine 25 mg tablet 25 mg PO .1/2 tab BID PRN #30 tab 09/25/20 10/11/20 10/10/20 Rx meloxicam 15 mg tablet 15 mg PO DAILY 30 Days #30 tab 10/04/20 10/11/20 10/10/20 Rx oxycodone 30 mg tablet 30 mg PO TID PRN 30 Days #60 tab 10/04/20 10/11/20 10/10/20 Rx pregabalin 300 mg capsule 300 mg PO BID 30 Days #60 cap 10/04/20 10/11/20 10/10/20 Rx tizanidine 4 mg tablet 4 mg PO TID PRN 30 Days #90 tab 10/04/20 10/11/20 Unknown Rx tramadol 50 mg tablet 100 mg PO TID PRN 30 Days #180 tab 10/04/20 10/11/20 Unknown Rx Ambien 10 mg PO BEDTIME 10/11/20 10/11/20 10/10/20 History Celexa 40 mg PO DAILY 10/11/20 10/11/20 10/10/20 History Novolog Flexpen U-100 Insulin See Rx Instructions .ROUTE .COMPLEX 10/11/20 10/11/20 10/10/20 History insulin detemir U-100 [Levemir 76 unit SUBCUT BID 10/11/20 10/11/20 10/10/20 History FlexTouch U-100 Insuln] ondansetron HCl 4 mg PO Q6H PRN 10/11/20 10/11/20 Unknown History ropinirole 2 mg PO BEDTIME 10/11/20 10/11/20 10/10/20 History Allergies Allergy/AdvReac Type Severity Reaction Status Date / Time adhesive Allergy rash Verified 10/04/20 08:04 ketorolac [From Toradol] Allergy rash Verified 10/04/20 08:04 morphine Allergy rash Verified 10/04/20 08:04 nitrofurantoin Allergy rash Verified 10/04/20 08:04 [From Macrobid] Penicillins Allergy hives Verified 10/04/20 08:04 PFSH Acute PFSH: Medical History (Updated 10/12/20 @ 00:41 by Tony Hayes MD) Depression Diabetes Encounter for long-term use of opiate analgesic Hypertension Insomnia intermediate (current) use of non-steroidal anti-inflammatories (nsaid) Lumbar post-laminectomy syndrome Opioid contract exists Spinal stenosis, cervical region Ulnar nerve impingement Surgical History H/O carpal tunnel repair H/O neck surgery H/O rotator cuff surgery H/O tubal ligation History of hysterectomy History of lumbar fusion S/P left knee arthroscopy Family History Other CAD (coronary artery disease) Cancer Stroke Denies family history of Anesthesia complication Bleeding disorder Social History Smoking and tobacco status: former smoker Alcohol intake: former History of recent travel: No Vitals/I&O/Wt Last Vital Signs Pulse 87 10/11/20 18:24 Resp 17 10/11/20 19:28 BP 106/71 10/11/20 19:28 Pulse Ox 93 10/11/20 19:28 Physical Exam Narrative: EXAM NARRATIVE: Patient was very somnolent when I entered the room, she was sitting at the bedside Able to tell me above-mentioned HPI, awake alert oriented x3 GCS 15 Appears more than 30 days Appears dehydrated GCS 15 No signs of meningitis no neck pain or headache or blurry vision S1, S2 no tachycardia or signs of heart failure No acute respiratory distress Abdomen distended, soft, CVA tenderness Lower extremities no edema gangrene or ulcer Somnolent behavior Skin is very dry Data : 10/11/20 12:00 10/11/20 13:36 Micro: Microbiology 10/11/20 20:05 Blood Culture - Preliminary Blood SPECIMEN COLLECTED 10/11/20 20:05 Blood Culture - Preliminary Blood SPECIMEN COLLECTED A&P Assessment and plan (1) Pyelonephritis: Status: Acute (2) Acute alteration in mental status: Status: Acute (3) Sepsis: Status: Acute Qualifiers: Sepsis acute organ dysfunction status: unspecified Sepsis type: sepsis due to unspecified organism Qualified Code(s): A41.9 - Sepsis, unspecified organism (4) Acute renal failure: Status: Acute Qualifiers: Acute renal failure type: unspecified Qualified Code(s): N17.9 - Acute kidney failure, unspecified (5) Polypharmacy: Status: Acute Additional A&P Information Sepsis secondary to bilateral pyonephritis Sepsis bacteremia. Tachycardia, leukocytosis Lactic acid normal Patient is drowsy, afebrile, no active signs of meningitis, CT chest is revealing bronchitis changes No signs of PE Due to severe sepsis her D-dimer is high, she received therapeutic dose of Lovenox in the ER which I would not repeat any more He received 2 g of ceftriaxone in the ER I would only continue 1 g ceftriaxone every 24 hours for pyelonephritis, my suspicion is low for meningitis Acute kidney injury Secondary to bilateral pyonephritis, the bladder is decompressed, no bladder outlet obstruction, Pyelonephritis most likely due to immunocompromised state considering hyperglycemia Monitor urine output, Of note, she has been taking meloxicam on a daily basis as well Hold nephrotoxic agents Polypharmacy SHe is on multiple sedating agents, muscle relaxers, antidepressants, drowsiness could be explained due to these medications with underlying BRYSON I would hold most of her medications for now Poorly controlled type 2 diabetes I will keep her on moderate sliding scale, consistent carbohydrate diet, check A1c level Her ketones are negative Anion gap is secondary to uremia Goals of care discussed with the patient and her : Patient does not want any aggressive measures, DNR/DNI, I would like to rediscuss goals of care as she is young and does not have any end-stage comorbidities Consistent carb diet DVT prophylaxis Heparin Attestations Medical Necessity Statement*: Anticipating stay in the hospital course more than 2 midnights continued management of sepsis, pyelonephritis IV antibiotics and monitoring ICU because of drowsy state Time Spent in Patient Care: (>than 50% of time spent in counselling and/or direct pt care on unit). 50mins Coding Level of Care Code Acute Digital Campaign Manager for Chg Fwd Diagnoses Pyelonephritis N12 Acute alteration in mental status R41.82 Sepsis A41.9 Sepsis acute organ dysfunction status: unspecified Sepsis type: sepsis due to unspecified organism Acute renal failure N17.9 Acute renal failure type: unspecified Polypharmacy Z79.899
[2020-10-11 20:44] LABS: Lactic Sepsis W/Reflex 1.5 mmol/L (0.5-2.2); Troponin 5 6HR 9.89 ng/L (0-10)
[2020-10-11 20:46] LABS: Troponin 5 6HR Delta -0.11 ng/L (0-12)
--- NOTE | 2020-10-11 20:46 | CTR_ITS ---
PROCEDURE INFORMATION: Exam: CT Abdomen And Pelvis Without Contrast Exam date and time: 10/11/2020 11:00 PM Age: 49 years old Clinical indication: Condition or disease; Kidney or ureter condition; Other: Jamie; Prior surgery; Surgery type: Back TECHNIQUE: Imaging protocol: Computed tomography of the abdomen and pelvis without contrast. Axial, coronal and sagittal reformatted images were created and reviewed. Radiation optimization: All CT scans at this facility use at least one of these dose optimization techniques: automated exposure control; mA and/or kV adjustment per patient size (includes targeted exams where dose is matched to clinical indication); or iterative reconstruction. COMPARISON: CT Abdomen/Pelvis Renal [id number] 07/09/2017 8:51 PM RADIATION DOSE METRICS: Total DLP (mGy-cm): 1222.96 FINDINGS: Liver: Mild hepatomegaly. Diffuse hepatic steatosis. Gallbladder and bile ducts: No radiodense gallstones. No biliary ductal dilatation. Pancreas: Unremarkable. Spleen: Mild splenomegaly. Adrenal glands: Normal. No mass. Kidneys and ureters: Severe bilateral renal cortical mottling/tray bills with associated perinephric edema. No radiodense calculi. No hydronephrosis. Stomach and bowel: Moderate amount of retained stool in the colon. No obstruction. No bowel wall thickening. No pneumatosis. Appendix: Normal. Intraperitoneal space: No free fluid. No organized fluid collection. No free air. Vasculature: Mild atherosclerotic disease. No aneurysm or dissection. Lymph nodes: Small retroperitoneal lymph nodes, nonspecific in appearance. No pathologically enlarged lymph nodes. Urinary bladder: Unremarkable as visualized. Reproductive: Status post hysterectomy. Bones/joints: No acute osseous abnormality. Mild degenerative changes. Status post L4-L5 posterior fusion. Soft tissues: Unremarkable. CT/CT abdomen pelvis wo con [id number] IMPRESSION: 1. Acute bilateral pyelonephritis, as described above. 2. Additional findings, as above. Radiation Dose CTDIVOL = (mGy): DLP = 1222.96 (mGy-cm)
[2020-10-11 20:50] LABS: Amphetamines Screen Urine Negative (Negative); Barbiturates Screen Urine Negative (Negative); Benzodiazepines Screen Urine Negative (Negative); Cocaine Screen Urine Negative (Negative); Opiate Screen Urine Negative (Negative); PCP Screen Urine Negative (Negative); THC Screen Urine Negative (Negative)
[2020-10-11 20:57] LABS: Urine Color Yellow (Yellow)
[2020-10-11 20:58] LABS: Bilirubin Urine Neg (Negative); Blood Urine 3+ (Negative); Glucose Urine UA 2+ (Normal); Ketones Urine Negative (Negative); Leukocyte Esterase Urine Trace (Negative); Nitrate Urine Positive (Negative); Protein Urine Neg (Negative); Specific Gravity, Urine 1.015 (1.005-1.030); Squamous Epithelial Cell Urine 0-4 /hpf (0-5); Urine Appearance Hazy (CLEAR); Urobilinogen Urine Norm (Negative)
[2020-10-11 20:59] LABS: Add Urine Culture? No; Bacteria Urine 2+ /hpf
[2020-10-12] VITALS (32 sets, daily range): BP systolic 97–159; BP diastolic 48–91; PULSE 71–96; RESP 9–20; TEMP 36.7–36.9; O2SAT 95–100
[2020-10-12 00:15] LABS: Estmated Average Glucose 278; Hemoglobin A1C 11.3 % (4.0-6.0)
[2020-10-12] MEDS: sodium chlor 0.9% + KCl 20 mEq 20 MEQ/1,000 ML BAG 100 MEQ IV (00:15)
[2020-10-12] MEDS: heparin 5,000 unit/mL INJ 1 mL 5000 UNIT SUBCUT ×3 (00:15→19:24)
[2020-10-12 00:40] LABS: Glucose Point of Care 217 mg/dL (70-110)
[2020-10-12] MEDS: acetaminophen 500 mg Tablet PO ×2 (01:04→19:24)
[2020-10-12] MEDS: lanolin oint 7 gm 1 APPLIC TOPICAL (02:55)
[2020-10-12 03:07] LABS: Procalcitonin 10.17 ng/mL (0-0.5)
[2020-10-12 05:07] LABS: Basophils # 0.2 10^3/uL (0.0-0.1); Basophils % 0.8 %; Eosinophils % 0.1 %; Hematocrit 35.2 % (37.0-47.0); Hemoglobin 11.2 g/dL (11.5-15.3); Lymphocytes % 8.2 %; Mean Corpuscular HGB Conc 31.8 g/dL (30.0-36.0); Mean Corpuscular Hemoglobin 29.6 pg (28.0-34.0); Mean Corpuscular Volume 93.1 fL (81-99); Mean Platelet Volume 11.1 fL (7.4-10.4); Monocytes # 0.9 10^3/uL (0.2-0.9); Monocytes % 3.7 %; Neutrophils # 19.59 10^3/uL (1.8-7.7); Neutrophils % 82.2 %; Nucleated Red Blood Cells % 0 %; Platelet Count 203 10^3/cmm (130-400); Red Blood Count 3.78 10^6/uL (4.1-5.3); Red Cell Distribution Width 14.6 % (12.1-15.1); White Blood Count 23.8 10^3/uL (4.0-10.0)
[2020-10-12 05:36] LABS: Blood Urea Nitrogen 74 mg/dL (6-20); Calcium 7.6 mg/dL (8.5-10.5); Carbon Dioxide 15 mmol/L (22-29); Chloride 90 mmol/L (98-107); Glomerular Filtration Rate 23.6 mL/min (90-130); Glucose 164 mg/dL (65-115); Osmolality Calculated 282 mOsm/kg (285-295); Sodium 123 mmol/L (136-145)
[2020-10-12 06:01] LABS: Anion Gap 21.9 (5-19); Potassium 3.9 mmol/L (3.5-5.1)
[2020-10-12] MEDS: sodium chloride 0.9% 1,000 ML 100 ML IV ×2 (08:15→17:17)
[2020-10-12] MEDS: cefTRIAXone 1,000 MG in sodium chloride 0.9% (plus) 50 ML 100 MG IV ×2 (08:16→19:25)
[2020-10-12] MEDS: famotidine 20 mg Tablet PO ×2 (08:17→17:10)
[2020-10-12] MEDS: oxyCODONE 5 mg IR Tab/Cap PO ×4 (08:17→23:53)
[2020-10-12 08:40] LABS: Thyroid Stimulating Hormone 1.01 uIU/mL (0.27-4.20)
--- NOTE | 2020-10-12 12:53 | XR_ITS ---
WS: [id number] KUB, 10/12/2020 Clinical Data: ABD Pain Comparison: CT abdomen and pelvis, 10/11/2020. Findings: No abnormal intraabdominal masses or calcifications are seen. There is no dilatated small bowel or ev idence of obstruction. The kidneys appear to be enlarged bilaterally. The patient has surgical clips adjacent to the right r enal hilum. The patient had a posterior lumbar fusion at L5-S1. XR/XR abdomen 1V* [id number] Impression: Bilateral enlarged kidneys consistent with history of pyelonephritis.
[2020-10-12] MEDS: HYDROmorphone 1 mg/mL INJ 1 mL IVP ×3 (13:00→22:35)
--- NOTE | 2020-10-12 15:44 | PM.PN ---
Subjective Subjective: Interval history: History and physical reviewed. Patient reported some upper abdominal pain this morning. She states she has low back pain as well. She denies any of the difficulty with urinating. She seemed somewhat confused this morning. Medications: Reviewed: Yes Vitals/I&O/Wt Last Vital Signs Temp 98.5 F 10/12/20 11:30 Pulse 83 10/12/20 12:00 Resp 16 10/12/20 13:00 BP 145/76 10/12/20 12:00 Pulse Ox 98 10/12/20 12:00 10/12/20 10/12/20 10/12/20 06:59 14:59 22:59 Intake Total 1050 / 1150 500 / 500 Output Total 550 / 550 400 / 400 Balance 500 / 600 100 / 100 Weight last 48 hrs Weight 89.902 kg Physical Exam Narrative: EXAM NARRATIVE: General exam no apparent distress Cardiovascular regular rate and rhythm without murmur Lungs clear no wheezing or crackles Abdomen is soft. Slight tenderness epigastric area. Extremities no cyanosis clubbing or edema Data : 10/12/20 04:12 10/12/20 04:12 Micro: Microbiology 10/11/20 20:15 Legionella Urinary Antigen - Final Urine,Voided Bacterial Antigens - Final 10/11/20 20:05 Blood Culture - Preliminary Blood SPECIMEN COLLECTED 10/11/20 20:05 Blood Culture - Preliminary Blood SPECIMEN COLLECTED A&P Assessment and plan (1) Pyelonephritis: Await urine culture Rocephin 1 g IV every [address] demonstrated bilateral pyelonephritis, no obstruction Status: Acute (2) Acute alteration in mental status: CTA was performed demonstrating no pulmonary embolism, patchy groundglass infiltrates. Head CT negative Likely secondary to sepsis No concerning signs of meningismus Status: Acute (3) Sepsis: Appears to be improving. No evidence of hypotension Await blood cultures IV antibiotics consisting of Rocephin currently. Status: Acute Qualifiers: Sepsis acute organ dysfunction status: unspecified Sepsis type: sepsis due to unspecified organism Qualified Code(s): A41.9 - Sepsis, unspecified organism (4) Acute renal failure: Follow renal function closely, as well as output Continue hydration Avoid renal toxic medications Status: Acute Qualifiers: Acute renal failure type: unspecified Qualified Code(s): N17.9 - Acute kidney failure, unspecified (5) Polypharmacy: Hold many of her sedating medications Status: Acute Additional A&P Information Hyponatremia. Repeat BMP now. Check TSH and cortisol level. CTA was also performed which demonstrated no evidence of pulmonary embolism, interstitial infiltrates. Rapid Covid negative. PCR Covid pending. Heparin for DVT prophylaxis Attestations Medical Necessity Statement*: Needs continued hospital stay for IV antibiotics secondary to sepsis, pyelonephritis Coding Level of Care Code Acute User Experience Manager for [facility] Fwd Diagnoses Pyelonephritis N12 Acute alteration in mental status R41.82 Sepsis A41.9 Sepsis acute organ dysfunction status: unspecified Sepsis type: sepsis due to unspecified organism Acute renal failure N17.9 Acute renal failure type: unspecified Polypharmacy Z79.899
[2020-10-12 17:07] LABS: Cortisol Random 23.68 ug/mL (2.47-19.5)
[2020-10-12 17:09] LABS: Anion Gap 21.8 (5-19); Blood Urea Nitrogen 68 mg/dL (6-20); Calcium 7.8 mg/dL (8.5-10.5); Carbon Dioxide 17 mmol/L (22-29); Chloride 93 mmol/L (98-107); Glomerular Filtration Rate 31.8 mL/min (90-130); Glucose 162 mg/dL (65-115); Osmolality Calculated 289 mOsm/kg (285-295); Potassium 3.8 mmol/L (3.5-5.1); Sodium 128 mmol/L (136-145)
--- NOTE | 2020-10-12 20:05 | PC.NURSE ---
C/O Abdominal pain and tenderness, reported in shift report also, Abdomen soft non distended BS x4, AO x3 follows commands, attempts to ambulate self redirects back to bed safely, lungs clear denied SOB regular unlabored RR RA, attempts to take BPcuff and O2 probe off at times but reports understanding their purpose, supine 45 degrees call light within reach, one on one sitter at bed side at this time
--- NOTE | 2020-10-12 20:53 | PC.NURSE ---
Daughter called and asked for update on pt, daughter was informed of Pyelonephritis and Low Na, being on NS and Rocephin
[2020-10-13] VITALS (15 sets, daily range): BP systolic 137–161; BP diastolic 76–88; PULSE 66–83; RESP 8–20; TEMP 36.4–37.1; O2SAT 97–100
--- NOTE | 2020-10-13 00:42 | PC.NURSE ---
Lab reported 1at of 4 bood cultures Gram positive cocci pairs and clusters, Reported to Dr. Hayes [id number] and being on Rocephin q12 Hrs, no N.O. at this time
[2020-10-13] MEDS: ondansetron 2 mg/ML SDV 2 mL 4 MG IVP (00:56)
[2020-10-13] MEDS: HYDROmorphone 1 mg/mL INJ 1 mL IVP ×2 (02:54→07:58)
[2020-10-13 03:51] LABS: Basophils # 0.1 10^3/uL (0.0-0.1); Basophils % 0.4 %; Eosinophils % 0.2 %; Hematocrit 35.2 % (37.0-47.0); Hemoglobin 11.1 g/dL (11.5-15.3); Lymphocytes # 1.7 10^3/uL (0.8-4.8); Lymphocytes % 7.3 %; Mean Corpuscular HGB Conc 31.5 g/dL (30.0-36.0); Mean Corpuscular Hemoglobin 29.1 pg (28.0-34.0); Mean Corpuscular Volume 92.1 fL (81-99); Monocytes # 0.9 10^3/uL (0.2-0.9); Monocytes % 3.8 %; Neutrophils # 18.77 10^3/uL (1.8-7.7); Neutrophils % 82.4 %; Nucleated Red Blood Cells % 0 %; Platelet Count 206 10^3/cmm (130-400); Red Blood Count 3.82 10^6/uL (4.1-5.3); Red Cell Distribution Width 14.5 % (12.1-15.1); White Blood Count 22.8 10^3/uL (4.0-10.0)
[2020-10-13 04:26] LABS: Anion Gap 20.5 (5-19); Blood Urea Nitrogen 62 mg/dL (6-20); Calcium 7.9 mg/dL (8.5-10.5); Carbon Dioxide 18 mmol/L (22-29); Chloride 97 mmol/L (98-107); Glomerular Filtration Rate 31.8 mL/min (90-130); Glucose 159 mg/dL (65-115); Osmolality Calculated 295 mOsm/kg (285-295); Potassium 3.5 mmol/L (3.5-5.1); Sodium 132 mmol/L (136-145)
[2020-10-13 04:42] LABS: Coronavirus Lab Test PTC Negative
--- NOTE | 2020-10-13 06:38 | PC.NURSE ---
uneventful night, Mental status improving, required PRN pain meds throughout night
[2020-10-13] MEDS: oxyCODONE 5 mg IR Tab/Cap PO ×3 (06:54→18:41)
[2020-10-13 07:20] LABS: Glucose Point of Care 276 mg/dL (70-110)
[2020-10-13 07:24] LABS: Glucose Point of Care 230 mg/dL (70-110)
[2020-10-13 07:24] LABS: Glucose Point of Care 162 mg/dL (70-110)
--- NOTE | 2020-10-13 07:24 | PC.NURSE ---
recd a/o. up to side of bed, then ambulated to bathroom. tol. emery.
[2020-10-13] MEDS: cefTRIAXone 1,000 MG in sodium chloride 0.9% (plus) 50 ML 100 MG IV ×2 (07:48→21:02)
[2020-10-13] MEDS: heparin 5,000 unit/mL INJ 1 mL 5000 UNIT SUBCUT ×2 (07:49→21:03)
--- NOTE | 2020-10-13 08:30 | PM.PN ---
Subjective Subjective: Interval history: Patient reports mostly right upper quadrant and right periumbilical area abdominal pain that she had for last couple of days. Her last bowel movement was 2 days ago and it was nondiarrheal. Denies any melena or hematochezia. Denies any trouble with urination currently. Reports that at home she frequently has episodes of difficulty initiating urination. She takes opioids for long period of time for chronic low back pain and for shoulder pains and seeing pain clinic. She denies being depressed or having suicidal or homicidal ideations. She denies shortness of breath or chest pain. She is diabetic. Denies any previous history of heart disease. Her WBC continues to be high, 22.8 this morning. Culture results are still pending. Reports poor oral intake. Sodium improved to 132. Medications: Reviewed: Yes Vitals/I&O/Wt Last Vital Signs Temp 98.1 F 10/13/20 08:07 Pulse 77 10/13/20 08:07 Resp 12 10/13/20 08:07 BP 158/84 10/13/20 08:07 Pulse Ox 98 10/13/20 08:07 10/12/20 10/13/20 10/13/20 22:59 06:59 14:59 Intake Total 1303.333 / 8657.659 2636 / 2903.333 Output Total 300 / 700 150 / 850 600 / 600 Balance 1003.333 / 1153.333 900 / 2053.333 -600 / -600 Weight last 48 hrs Weight 89.902 kg Physical Exam Const: COMMON NORMALS: no acute distress and patient oriented x3 Resp: COMMON NORMALS: normal respiratory effort and clear to auscultation bilaterally AUSCULTATION: clear to auscultation bilaterally Cardio: COMMON NORMALS: regular rate, regular rhythm and S2 normal heart sound present RATE: regular rate RHYTHM: regular rhythm HEART SOUNDS: S2 normal heart sound present OTHER: No lower extremity edema GI: COMMON NORMALS: Normal to inspection, nondistended, normoactive bowel sounds present and Soft to palpation PALPATION: Yes Soft to palpation OTHER: Tender to palpation mostly epigastric and right side of the abdomen. Neuro: COMMON NORMALS: patient oriented x3 and no focal motor deficits Data : 10/13/20 03:18 10/13/20 03:18 Micro: Microbiology 10/11/20 20:05 Blood Culture - Preliminary Blood 10/11/20 20:05 Blood Culture - Preliminary Blood NEGATIVE TO DATE 10/11/20 20:15 Legionella Urinary Antigen - Final Urine,Voided Bacterial Antigens - Final A&P Assessment and plan (1) Pyelonephritis: Await urine culture Rocephin 1 g IV every [address] demonstrated bilateral pyelonephritis, no obstruction Status: Acute (2) Acute alteration in mental status: Resolved. Status: Acute (3) Sepsis: Appears to be improving. No evidence of hypotension Await blood cultures IV antibiotics consisting of Rocephin currently. Status: Acute Qualifiers: Sepsis acute organ dysfunction status: unspecified Sepsis type: sepsis due to unspecified organism Qualified Code(s): A41.9 - Sepsis, unspecified organism (4) Acute renal failure: Appears multifactorial with likely urinary outflow obstruction and prerenal secondary to dehydration. Status: Acute Qualifiers: Acute renal failure type: unspecified Qualified Code(s): N17.9 - Acute kidney failure, unspecified (5) Polypharmacy: Hold many of her sedating medications Status: Acute Additional A&P Information Dehydration with hyponatremia. Present on admission. Probable urinary retention. Likely related to opioids. Right upper quadrant and epigastric area abdominal pain. Suspected NSAID induced gastritis/peptic ulcer disease. Present admission PLAN: We will bladder scan to check for residual. Place Ramesh if significant residuals appreciated. Discontinue H2 dali and switch patient to Protonix for GI protection to minimize any effect on smooth muscles. Continue prazosin and monitor blood pressure. Continue IV fluids for now. Since patient's WBC remains significantly elevated will add vancomycin. Awaiting culture results. Will transfer patient to medical aquino. I do not see any need for one-to-one sitter at this point as patient denies being depressed and denies suicidal or homicidal ideations. Discontinue meloxicam. Restart Celexa and pregabalin but decrease dose to 100 mg twice daily Discontinue Dilaudid and continue oxycodone for pain control. Heparin for DVT prophylaxis Attestations Medical Necessity Statement*: Patient with acute pyelonephritis and acute kidney injury requires close inpatient monitoring and treatment. Time Spent in Patient Care: Greater than 35 minutes Coding Level of Care Code Acute Applied Research Director for [facility] Diagnoses Pyelonephritis N12 Acute alteration in mental status R41.82 Sepsis A41.9 Sepsis acute organ dysfunction status: unspecified Sepsis type: sepsis due to unspecified organism Acute renal failure N17.9 Acute renal failure type: unspecified Polypharmacy Z79.899
[2020-10-13] MEDS: pantoprazole DR 40 mg Tablet PO (09:08)
[2020-10-13] MEDS: tamsulosin 0.4 mg Capsule PO (09:19)
[2020-10-13] MEDS: vancomycin 1,000 MG in sodium chloride 0.9% 250 ML 250 MG IV ×2 (09:20→22:04)
--- NOTE | 2020-10-13 10:18 | PC.CHAP ---
Pastoral Care Encounter/Spiritual Assessment Type of Contact [] Declined nurse administrator visit [] Patient/Family/Request visit [] Outpatient visit [] Follow-up visit [] Physician referral [] Code/Alert [] Routine visit [X] Staff referral [] Actively dying [X] Patient sleeping [] Family support [] [] Out of room [] Palliative care [] [] Receiving care in room [] Pre-surgical visit [] Trauma [] Long length of stay [] ICU visit [] Other: Relational/Emotional Strength [] Patient feels connected with others/family/visitors/staff [] Distress [] Loneliness/isolation [] Abandonment Spirituality of Patient [] Person of Dalila [] Attends Anabaptist of their Dalila [] Believes in Prayer [] Reads Bible or Congregation materials [] There are Spiritual issues to be addressed Hot Metal Mixer Operator Interventions [] Prayer [] Active listening [] Non-anxious presence [] Spiritual/emotional support [] Crisis/trauma care [] Spiritual counseling [] Bereavement support [] Provided bereavement packet [] Provided Bible/devotional materials [] Provided toy/stuffed animal, coloring book to patient or family member [] Provided Communion [] Anointing/[place] [] Salvation [] Completed spiritual assessment [] Other: Impact on Illness or Injury [] Angry [] Fearful [] Anxious [] Often cries [] Exhaustion [] Unable to work [] Unable to attend mandaen [] Unable to walk/stand [] Unable to read [] Unable to drive [] Unable to eat/drink [] Unable to sleep [] Unable to be with family [] Patient intubated [] Other: Summary Time spent with patient
--- NOTE | 2020-10-13 11:13 | PC.NURSE ---
transferred to med surg. per ambulation. obinna. well phone, clothing, cigarettes and atmospheric chemist. later 2 to the nurses station.
[2020-10-13 11:18] LABS: Glucose Point of Care 172 mg/dL (70-110)
[2020-10-13 11:32] LABS: Glucose Point of Care 205 mg/dL (70-110)
[2020-10-13 11:32] LABS: Glucose Point of Care 170 mg/dL (70-110)
[2020-10-13] MEDS: citalopram 20 mg Tablet 40 MG PO (11:53)
[2020-10-13] MEDS: sodium chloride 0.9% 1,000 ML 100 ML IV (11:55)
[2020-10-13 18:04] LABS: Glucose Point of Care 299 mg/dL (70-110)
[2020-10-13] MEDS: pregabalin 100 mg Capsule PO (18:31)
[2020-10-13 20:55] LABS: Glucose Point of Care 313 mg/dL (70-110)
[2020-10-14] VITALS (10 sets, daily range): BP systolic 146–169; BP diastolic 77–82; PULSE 73–98; RESP 16–20; TEMP 36.4–37.2; O2SAT 98–100
[2020-10-14] MEDS: oxyCODONE 5 mg IR Tab/Cap PO ×5 (01:21→21:00)
[2020-10-14] MEDS: sodium chloride 0.9% 1,000 ML 100 ML IV ×2 (01:22→11:23)
[2020-10-14 06:49] LABS: Glucose Point of Care 236 mg/dL (70-110)
[2020-10-14] MEDS: cefTRIAXone 1,000 MG in sodium chloride 0.9% (plus) 50 ML 100 MG IV ×2 (07:35→21:01)
[2020-10-14] MEDS: pregabalin 100 mg Capsule PO ×2 (07:36→17:01)
[2020-10-14] MEDS: heparin 5,000 unit/mL INJ 1 mL 5000 UNIT SUBCUT ×2 (07:36→21:01)
[2020-10-14] MEDS: citalopram 20 mg Tablet 40 MG PO (07:36)
[2020-10-14] MEDS: pantoprazole DR 40 mg Tablet PO (07:36)
--- NOTE | 2020-10-14 11:34 | PC.CHAP ---
Pastoral Care Encounter/Spiritual Assessment Type of Contact [] Declined coal weigher visit [] Patient/Family/Request visit [] Outpatient visit [X] Follow-up visit [] Physician referral [] Code/Alert [X] Routine visit [] Staff referral [] Actively dying [] Patient sleeping [] Family support [] [] Out of room [] Palliative care [] [] Receiving care in room [] Pre-surgical visit [] Trauma [] Long length of stay [] ICU visit [] Other: Relational/Emotional Strength [] Patient feels connected with others/family/visitors/staff [] Distress [] Loneliness/isolation [] Abandonment Spirituality of Patient [] Person of Dalila [] Attends Quaker of their Dalila [X] Believes in Prayer [] Reads Bible or Scientologist materials [] There are Spiritual issues to be addressed Estimating Manager Interventions [X] Prayer [X] Active listening [] Non-anxious presence [] Spiritual/emotional support [] Crisis/trauma care [] Spiritual counseling [] Bereavement support [] Provided bereavement packet [X] Provided Bible/devotional materials [] Provided toy/stuffed animal, coloring book to patient or family member [] Provided Communion [] Anointing/[place] [] Salvation [] Completed spiritual assessment [] Other: Impact on Illness or Injury [] Angry [] Fearful [] Anxious [] Often cries [] Exhaustion [] Unable to work [] Unable to attend oriental orthodox [] Unable to walk/stand [] Unable to read [] Unable to drive [] Unable to eat/drink [] Unable to sleep [] Unable to be with family [] Patient intubated [] Other: Summary: Pt expressed frustration with hospitalization ( feels like group home ). However, after learning that she could have a visitor this afternoon, visiting, and prayer, she had a much better disposition. Time spent with patient: 10 mins
[2020-10-14 11:56] LABS: Basophils # 0.1 10^3/uL (0.0-0.1); Basophils % 0.6 %; Eosinophils % 0.2 %; Hematocrit 38.2 % (37.0-47.0); Hemoglobin 11.6 g/dL (11.5-15.3); Lymphocytes # 1.4 10^3/uL (0.8-4.8); Lymphocytes % 7.9 %; Mean Corpuscular HGB Conc 30.4 g/dL (30.0-36.0); Mean Corpuscular Volume 95.5 fL (81-99); Mean Platelet Volume 10.4 fL (7.4-10.4); Monocytes # 0.8 10^3/uL (0.2-0.9); Monocytes % 4.2 %; Nucleated Red Blood Cells % 0 %; Platelet Count 196 10^3/cmm (130-400); Red Cell Distribution Width 14.7 % (12.1-15.1); White Blood Count 17.7 10^3/uL (4.0-10.0)
[2020-10-14 12:00] LABS: Glucose Point of Care 334 mg/dL (70-110)
[2020-10-14 12:02] LABS: Neutrophils % 87.1 %
[2020-10-14 12:33] LABS: Alanine Aminotransferase 16 U/L (0-33); Albumin Level 2.1 g/dL (3.5-5.2); Alkaline Phosphatase 516 IU/L (35-105); Blood Urea Nitrogen 37 mg/dL (6-20); Calcium 7.5 mg/dL (8.5-10.5); Carbon Dioxide 15 mmol/L (22-29); Chloride 99 mmol/L (98-107); Globulin 4.2 g/dL (1.3-4.6); Glomerular Filtration Rate 47.6 mL/min (90-130); Glucose 298 mg/dL (65-115); Osmolality Calculated 292 mOsm/kg (285-295); Sodium 131 mmol/L (136-145); Total Bilirubin 0.3 mg/dL (0.15-1.2); Total Protein 6.3 g/dL (6.6-8.7)
[2020-10-14 12:40] LABS: Aspartate Amino Transferase 19 U/L (0-32)
[2020-10-14 17:11] LABS: Glucose Point of Care 178 mg/dL (70-110)
--- NOTE | 2020-10-14 17:23 | PM.PN ---
Subjective Subjective: Interval history: Patient had large bowel movement and her abdominal pain improved. Denies shortness of breath or chest pain. WBC further improved. She appears more alert. Had some abdominal cramps. Had 1/4 coag neg staph blood culture which is likely a contamination. Urine shows some gram neg rods. Medications: Reviewed: Yes Vitals/I&O/Wt Last Vital Signs Temp 98.9 F 10/14/20 16:00 Pulse 98 10/14/20 16:00 Resp 16 10/14/20 17:01 BP 165/80 10/14/20 16:00 Pulse Ox 100 10/14/20 16:00 10/14/20 10/14/20 10/14/20 06:59 14:59 22:59 Intake Total 1920 / 3690 1720 / 1720 Output Total 1450 / 2400 1400 / 1400 1000 / 2400 Balance 470 / 1290 320 / 320 -1000 / -680 Physical Exam Const: COMMON NORMALS: no acute distress and patient oriented x3 Resp: COMMON NORMALS: normal respiratory effort and clear to auscultation bilaterally AUSCULTATION: clear to auscultation bilaterally Cardio: COMMON NORMALS: regular rate, regular rhythm and S2 normal heart sound present RATE: regular rate RHYTHM: regular rhythm HEART SOUNDS: S2 normal heart sound present OTHER: No lower extremity edema GI: COMMON NORMALS: Normal to inspection, nondistended, normoactive bowel sounds present and Soft to palpation PALPATION: Yes Soft to palpation OTHER: Tender to palpation mostly epigastric and right side of the abdomen. Neuro: COMMON NORMALS: patient oriented x3 and no focal motor deficits Data : 10/14/20 11:47 10/14/20 11:47 Micro: Microbiology 10/11/20 20:05 Blood Culture - Preliminary Blood Coagulase negativ staphylococc 10/11/20 20:15 Legionella Urinary Antigen - Final Urine,Voided Urine Culture - Final Bacterial Antigens - Final A&P Assessment and plan (1) Pyelonephritis: Await urine culture Rocephin 1 g IV every [address] demonstrated bilateral pyelonephritis, no obstruction Status: Acute (2) Acute alteration in mental status: Resolved. Status: Acute (3) Sepsis: Appears to be improving. No evidence of hypotension Await blood cultures IV antibiotics consisting of Rocephin currently. Status: Acute Qualifiers: Sepsis acute organ dysfunction status: unspecified Sepsis type: sepsis due to unspecified organism Qualified Code(s): A41.9 - Sepsis, unspecified organism (4) Acute renal failure: Appears multifactorial with likely urinary outflow obstruction and prerenal secondary to dehydration. Status: Acute Qualifiers: Acute renal failure type: unspecified Qualified Code(s): N17.9 - Acute kidney failure, unspecified (5) Polypharmacy: Hold many of her sedating medications Status: Acute Additional A&P Information Dehydration with hyponatremia. Present on admission. Probable urinary retention. Likely related to opioids. Right upper quadrant and epigastric area abdominal pain. Suspected NSAID induced gastritis/peptic ulcer disease. Present admission PLAN: Discussed with patient to limit opioids as much as possible. Continue current treatment and if further improves we will likely be able to DC her home tomorrow. Blood culture was repeated again this morning. Heparin for DVT prophylaxis Attestations Medical Necessity Statement*: Patient with UTI and positive blood culture requires inpatient monitoring and treatment until deemed safe for discharge. Time Spent in Patient Care: 16 - 35 minutes Coding Level of Care Code Acute Associate Professor Of Church Music for [facility] Fwd Diagnoses Pyelonephritis N12 Acute alteration in mental status R41.82 Sepsis A41.9 Sepsis acute organ dysfunction status: unspecified Sepsis type: sepsis due to unspecified organism Acute renal failure N17.9 Acute renal failure type: unspecified Polypharmacy Z79.899
--- NOTE | 2020-10-14 17:34 | PC.NURSE ---
SHIFT SUMMARY PATIENT HAS DONE WELL TODAY. PAIN CONTROLLED. GOOD PO INTAKE. EXCELLENT URINE OUTPUT. AMBULATING THE HALLS. WBC IMPROVED. NO COMPLAINTS AT THIS TIME.
--- NOTE | 2020-10-14 17:38 | PC.NURSE ---
VANCOMYCIN VANCOMYCIN DISCONTINUED BY DR. WADE DUE TO PATIENT UNABLE TO RECEIVE VANC TROUGH. PATIENT VERY DIFFICULT STICK.
[2020-10-14 20:27] LABS: Glucose Point of Care 298 mg/dL (70-110)
[2020-10-15] VITALS: BP 162/88; PULSE 74; RESP 20; TEMP 36.9; O2SAT 100
[2020-10-15] MEDS: sodium chloride 0.9% 1,000 ML 100 ML IV (01:00)
[2020-10-15 01:02] VITALS: RESP 18
[2020-10-15] MEDS: oxyCODONE 5 mg IR Tab/Cap PO ×2 (01:02→09:31)
[2020-10-15] MEDS: ondansetron 2 mg/ML SDV 2 mL 4 MG IVP (03:52)
[2020-10-15 04:00] VITALS: BP 137/71; PULSE 78; RESP 17; TEMP 36.9; O2SAT 97
[2020-10-15 06:46] LABS: Glucose Point of Care 122 mg/dL (70-110)
[2020-10-15 08:00] VITALS: BP 161/78; PULSE 81; RESP 20; TEMP 36.6; O2SAT 97
--- NOTE | 2020-10-15 09:18 | P.DS_ITS ---
Discharge Providers Date of Admission: 10/11/20 20:43 Date of Discharge: October 15, 2020 Attending Provider at Admission: Tony Hayes MD Attending Provider at Discharge: Dorian Blood MD Primary Care Provider: Yesica Bailey MD Diagnoses at Discharge Discharge Diagnosis (1) Pyelonephritis: Status: Acute (2) Acute alteration in mental status: Status: Acute Permanent problem details: Appears to be a toxic metabolic encephalopathy secondary to UTI and opioid medications. Present on admission. (3) Sepsis: Status: Acute Permanent problem details: Resolved Qualifiers: Sepsis acute organ dysfunction status: unspecified Sepsis type: sepsis due to unspecified organism Qualified Code(s): A41.9 - Sepsis, unspecified organism (4) Acute renal failure: Status: Acute Permanent problem details: Improved, appears to be multifactorial with prerenal and postrenal playing a role. Qualifiers: Acute renal failure type: unspecified Qualified Code(s): N17.9 - Acute kidney failure, unspecified (5) Polypharmacy: Status: Acute (6) NSAID induced gastritis: Status: Acute Permanent problem details: Likely present on admission (7) Constipation: Status: Acute Permanent problem details: Present on admission (8) Elevated alkaline phosphatase level: Status: Acute Permanent problem details: Appears to be GI in etiology related to NSAID induced gastritis and constipation. Patient does not appear to have evidence of acute cholecystitis. Reason for Visit Reason for Visit: HIGH BS/ LETHARGY/ AMS Hospital Course Hospital Course Patient on multiple high-dose opiate medications presented with altered mental status. She was found to have acute pyelonephritis. She met sepsis criteria. She was treated with IV fluids and antibiotics. Her acute kidney injury improved. She was constipated and after bowel regimen had good bowel movement. She continues to have right upper quadrant abdominal discomfort but overall much better. This was suspected to be secondary to meloxicam related gastritis. This also could play a role in patient's elevated alkaline phosphatase. Patient does not have positive Mcclelland sign on exam and CT scan showed no evidence of common bile duct dilation. Patient's other liver enzymes in normal range. Given overall clinical improvement patient will be dismissed home today. I will request repeat alk phos and CMP check in several days prior to primary care physician follow-up to make sure it is improving otherwise patient will require further evaluation including bone scan, EGD/colonoscopy. Patient responded well to ceftriaxone and I will discharge her on 10 more days of Omnicef. Patient's oral intake much improved and adequate. She denies any problems with urination today. Reports that prior to admission she has been having difficulty initiating urination. She had previous history of a hysterectomy and reports that she was told that she has bladder and rectal prolapse. We had discussed extensively regarding importance to decrease opioid medications as it is likely the reason of her constipation and UTI. I will discontinue H2 dali and start patient on Protonix for better GI protection. Patient was told to decrease amount of tizanidine she takes to decrease effect on smooth muscles potentially causing urinary retention. Should patient continue to have difficulty with urination further evaluation with urology or [facility]ATIONS ASSOCI[facility] physician should be considered for bladder suspension. Patient this morning had 355 on bladder scan and immediately after that she urinated 300 mL. The patient was about to refill her new oxycodone prescription and was told not to. Patient will refill new 1 that will be provided. 20 tablets of oxycodone IR 5 mg to take twice daily as needed was prescribed. Patient will follow up with pain clinic. I will add Tylenol 1000 mg every 8 hours as needed. Physical Exam Const: COMMON NORMALS: no acute distress and patient oriented x3 Resp: COMMON NORMALS: normal respiratory effort and clear to auscultation bilaterally AUSCULTATION: clear to auscultation bilaterally Cardio: COMMON NORMALS: regular rate, regular rhythm and S2 normal heart sound present RATE: regular rate RHYTHM: regular rhythm HEART SOUNDS: S2 normal heart sound present OTHER: No lower extremity edema GI: COMMON NORMALS: Normal to inspection, nondistended, normoactive bowel sounds present and Soft to palpation PALPATION: Yes Soft to palpation OTHER: Minimal right upper quadrant tenderness on palpation Neuro: COMMON NORMALS: patient oriented x3 and no focal motor deficits Discharge Data Data Completed and Pending: Completed Studies During Hospitalization Category Date Time Status CT abdomen pelvis wo con [id number] Stat Cat Scan 10/11/20 20:[address] angio chest PE protcl [id number] Stat Cat Scan 10/11/20 15:[address] head wo con* 7 [id number] Stat Cat Scan 10/11/20 14:19 Completed XR abdomen 1V* 74 018 NOW Exams 10/12/20 12:53 Completed XR chest 1V bety ble [id number] Stat Exams 10/11/20 14:19 Completed Pending at discharge Category Date Time Status Blood Culture Sta t Lab 10/11/20 20:05 Results Complete Blood Co unt w/Auto AM LABS Lab 10/16/20 04:00 Ordered Complete Blood Co unt w/Auto AM LABS Lab 10/17/20 04:00 Ordered Comprehensive Met abolic Panel AM LA BS Lab 10/16/20 04:00 Ordered Comprehensive Met abolic Panel AM LA BS Lab 10/17/20 04:00 Ordered Magnesium AM LABS Lab 10/16/20 04:00 Ordered Magnesium AM LABS Lab 10/17/20 04:00 Ordered Sputum Culture an d Gram Stain Stat Lab 10/13/20 00:22 Ordered Labs from last 24 hours 10/15/20 10/14/20 10/14/20 06:43 20:19 16:45 WBC RBC Hgb Hct MCV MCH MCHC RDW Plt Count MPV Neut % (Auto) Lymph % (Auto) [place] % (Auto) Eos % (Auto) Baso % (Auto) Neut # (Auto) Lymph # (Auto) [place] # (Auto) Eos # (Auto) Baso # (Auto) Nucleated RBC % (a uto) Nucleated RBCs # Sodium Potassium Chloride Carbon Dioxide Anion Gap BUN Creatinine GFR Calculation Glucose POC Glucose 122 298 178 Calculated Osmolal ity Calcium Total Bilirubin AST ALT Alkaline Phosphata se Total Protein Albumin Globulin 10/14/20 10/14/20 10/14/20 11:55 11:47 11:47 WBC 17.7 H RBC 4.00 L Hgb 11.6 Hct 38.2 MCV 95.5 MCH 29.0 MCHC 30.4 RDW 14.7 Plt Count 196 MPV 10.4 Neut % (Auto) 87.1 Lymph % (Auto) 7.9 [place] % (Auto) 4.2 Eos % (Auto) 0.2 Baso % (Auto) 0.6 Neut # (Auto) 14.00 H Lymph # (Auto) 1.4 [place] # (Auto) 0.8 Eos # (Auto) 0.0 Baso # (Auto) 0.1 Nucleated RBC % (a uto) 0 Nucleated RBCs # 0.0 Sodium 131 L Potassium 4.0 Chloride 99 Carbon Dioxide 15 L Anion Gap 21.0 H BUN 37 H Creatinine 1.2 H GFR Calculation 47.6 L Glucose 298 H POC Glucose 334 Calculated Osmolal ity 292 Calcium 7.5 L Total Bilirubin 0.3 AST 19 ALT 16 Alkaline Phosphata se 516 H Total Protein 6.3 L Albumin 2.1 L Globulin 4.2 Vitals: Last Vital Signs Temp 97.8 F 10/15/20 08:00 Pulse 81 10/15/20 08:00 Resp 20 H 10/15/20 08:00 BP 161/78 10/15/20 08:00 Pulse Ox 81 L 10/15/20 08:00 Discharge Plan Discharge Patient Disposition: Home Condition: Stable Prescriptions: New oxycodone 5 mg Tablet 5 mg PO Q12H PRN (Reason: Moderate Pain) Qty: 20 RF: 0 acetaminophen 500 mg Tablet 1,000 mg PO Q8H PRN (Reason: feever) Qty: 60 RF: 0 pantoprazole 40 mg Tablet,Delayed Release (Dr/Ec) 40 mg PO DAILY Qty: 30 RF: 0 polyethylene glycol 3350 [Miralax] 17 gram/dose powder 17 g PO DAILY Qty: 238 RF: 0 cefdinir 300 mg capsule 300 mg PO BID 5 Days Qty: 20 RF: 0 sennosides-docusate sodium [Senna-S] 8.6-50 mg tablet 1 tab-cap PO DAILY Qty: 30 RF: 0 Continued prazosin 1 mg capsule 1 mg PO BEDTIME RF: 0 sumatriptan succinate [Imitrex] 100 mg tablet 100 mg PO ONCE PRN (Reason: Migraine Headache) RF: 0 nitroglycerin [Nitrostat] 0.4 mg tablet, sublingual 0.4 mg SUBLINGUAL Q5M PRN (Reason: Chest Pain) RF: 0 oxymetazoline [Afrin (oxymetazoline)] 0.05 % spray,non-aerosol 2 spray INTRANASAL Q12H PRN (Reason: Nasal Congestion) RF: 0 multivitamin Capsule 1 cap PO QAM RF: 0 pregabalin [Lyrica] 300 mg capsule 300 mg PO BID 30 Days Qty: 60 RF: 0 tizanidine 4 mg tablet 4 mg PO TID PRN (Reason: muscle spasticity) 30 Days Qty: 90 RF: 1 promethazine 25 mg tablet 25 mg PO .1/2 tab BID PRN (Reason: nausea and vomiting) Qty: 30 RF: 2 Celexa 40 mg tablet 40 mg PO DAILY RF: 0 ondansetron HCl 4 mg tablet 4 mg PO Q6H PRN (Reason: Nausea) RF: 0 ropinirole 2 mg tablet 2 mg PO BEDTIME RF: 0 Ambien 10 mg tablet 10 mg PO BEDTIME RF: 0 Novolog Flexpen U-100 Insulin 100 unit/mL (3 mL) insulin pen See Rx Instructions .ROUTE .COMPLEX RF: 0 Levemir FlexTouch U-100 Insuln 100 unit/mL (3 mL) insulin pen 76 unit SUBCUT BID RF: 0 Discontinued oxycodone 30 mg tablet 30 mg PO TID PRN (Reason: pain) 30 Days Qty: 60 RF: 0 tramadol 50 mg tablet 100 mg PO TID PRN (Reason: Pain) 30 Days Qty: 180 RF: 0 meloxicam 15 mg tablet 15 mg PO DAILY 30 Days Qty: 30 RF: 1 famotidine 20 mg tablet 20 mg PO BID 30 Days Qty: 60 RF: 5 Discharge Orders: Discharge Order (Routine); Ordered 10/15/20 Ordered By: Dorian Blood Other Ambulatory Orders: Alkaline Phosphatase (Routine) Timeframe: 3 Days Facility: [facility] - Location: Lab - Main Lab Ordered By: Dorian Blood Comprehensive Metabolic Panel (Routine) Timeframe: 3 Days Facility: [facility] - Location: Lab - Main Lab Ordered By: Dorian Blood Referrals: Yesica Bailey MD [Primary Care Provider] - Discharge Diet: Usual diet Discharge Activity: Increase activity as tolerated Activity Restrictions/Additional Instructions: Please call your doctor or present to emergency department if your condition worsens or you develop diarrhea, lightheadedness, fatigue or see blood in your stool or black stool. Please try to avoid any opioids as much as possible and follow-up with your doctor regarding injection therapy as you are planning. Please try to decrease amount of tizanidine you take as it may also predispose you to UTI. Please discuss with Dr. Bailey to follow up on alkaline phosphatase level to make sure it is improving otherwise you may need further evaluation including bone scan, EGD, colonoscopy. If you continue to have trouble with urination after decrease of opioid medications please discuss with Dr. Bailey to arrange outpatient follow-up with urology or [facility]OC[facility]ATE to be evaluated for bladder suspension surgery as we have discussed. Discharge Attestations Time Spent in Discharge Care*: greater than 30 min Quality Metrics Clinical Quality Measures During this hospital stay, did patient experience: None Coding Level of Care Code Acute Whipped Topping Mixer for Chg Fwd Diagnoses Pyelonephritis N12 Acute alteration in mental status R41.82 Sepsis A41.9 Sepsis acute organ dysfunction status: unspecified Sepsis type: sepsis due to unspecified organism Acute renal failure N17.9 Acute renal failure type: unspecified Polypharmacy Z79.899 NSAID induced gastritis K29.60; T39.395A Constipation K59.00 Elevated alkaline phosphatase level R74.8
[2020-10-15] MEDS: cefTRIAXone 1,000 MG in sodium chloride 0.9% (plus) 50 ML 100 MG IV (09:27)
[2020-10-15] MEDS: pantoprazole DR 40 mg Tablet PO (09:27)
[2020-10-15] MEDS: heparin 5,000 unit/mL INJ 1 mL 5000 UNIT SUBCUT (09:27)
[2020-10-15] MEDS: citalopram 20 mg Tablet 40 MG PO (09:27)
[2020-10-15] MEDS: pregabalin 100 mg Capsule PO (09:27)
[2020-10-15 09:31] VITALS: RESP 16
--- NOTE | 2020-10-15 09:36 | PC.NURSE ---
bladder scanned per physician orders, 355mL noted, assisted patient to restroom voided, 300mL noted in hat.
--- NOTE | 2020-10-15 09:42 | PC.NURSE ---
Dr. Blood notified of bladder scan result and void, in approval to continue discharge.
--- NOTE | 2020-10-15 10:30 | PC.NURSE ---
Discharge instructions reviewed with patient, prescriptions provided, patient belongings from lockup given to patient (clean rice broker and cigarets) purse, phone, clothes, shoes and figueroa with patient at discharge.
[2020-10-15 10:31] VITALS: BP 161/78; PULSE 81; RESP 16; TEMP 36.6; O2SAT 97
== END 2020-10-15 10:32 | disposition home or self-care (01) | DRG 871 ==
LOC: ER 21:04 → ICU 22:37 → MEDSURG 10-13 11:10
PROVIDERS: Family Medicine; Internal Medicine; Admitting Provider Internal Medicine; Emergency Provider Emergency Medicine; PCP Family Medicine; Visit Provider Internal Medicine
DX: A41.9 Sepsis, unspecified organism (principal); G92 Toxic encephalopathy; N10 Acute pyelonephritis; N17.9 Acute kidney failure, unspecified; D84.821 Immunodeficiency due to drugs; E87.1 Hypo-osmolality and hyponatremia; E11.9 Type 2 diabetes mellitus without complications; R29.6 Repeated falls; J40 Bronchitis, not specified as acute or chronic; F32.9 Major depressive disorder, single episode, unspecified; Z79.891 Long term (current) use of opiate analgesic; I10 Essential (primary) hypertension; G47.00 Insomnia, unspecified; Z98.1 Arthrodesis status; Z87.891 Personal history of nicotine dependence; R41.82 Altered mental status, unspecified; Z79.899 Other long term (current) drug therapy; M54.5 Low back pain; E86.0 Dehydration; T39.395A Adverse effect of other nonsteroidal anti-inflammatory drugs [NSAID], initial encounter; Z79.4 Long term (current) use of insulin; R33.9 Retention of urine, unspecified; K59.00 Constipation, unspecified; K27.9 Peptic ulcer, site unspecified, unspecified as acute or chronic, without hemorrhage or perforation
CPT/HCPCS: 12345; 36415; 36416; 36600; 70450; 71045; 71275; 74018; 74176; 80048; 80051; 80053; 80306; 80307; 81001; 82009; 82330; 82533; 82805; 82962; 83036; 83605; 83690; 83735; 84145; 84443; 84484; 85007; 85025; 85378; 86403; 87040; 87086; 87205; 87426; 87449; 87635; 93005; 96372; 96375; 99283; J0696; J0743; J1170; J1644; J1650; J1815; J2310; J2405; J3370; J7030; J7050; Q9967

== ENCOUNTER → 2020-10-23 11:53 | Outpatient (BNVA) | payer MEDICAID, SELFPAY | PROVIDERS: PCP Family Medicine; Visit Provider Family Medicine | DX: R74.8 Abnormal levels of other serum enzymes (principal); K29.60 Other gastritis without bleeding; T39.395A Adverse effect of other nonsteroidal anti-inflammatory drugs [NSAID], initial encounter; K59.03 Drug induced constipation; E11.65 Type 2 diabetes mellitus with hyperglycemia; Z79.4 Long term (current) use of insulin | CPT/HCPCS: 80053; 85025 ==

== ENCOUNTER 2020-11-06 11:05 | Inpatient (IN) | payer MEDICAID, SELFPAY ==
[2020-11-06] VITALS (11 sets, daily range): BP systolic 124–149; BP diastolic 72–94; PULSE 76–112; RESP 17–18; TEMP 36–36.9; O2SAT 94–100; BMI 28.1
--- NOTE | 2020-11-06 11:18 | XR_ITS ---
WS: [id number] PORTABLE CHEST HISTORY: fever COMPARISON: 10/11/2020 Improved aeration since 10/11/2020. Less congestion. No persistent opacification. No pleural effusion or pneumothorax. Cardiac size: Normal. Mediastinum/Aorta: Mild atherosclerosis aorta. Prior anterior cervical fusion hardware. XR/XR chest 1V portable [id number] IMPRESSION: Resolved pneumonia and pulmonary congestion since 10/11/2020. No acute cardiopu lmonary disease.
--- NOTE | 2020-11-06 11:18 | CT_ITS ---
WS: [id number] CT ABDOMEN AND PELVIS WITH CONTRAST HISTORY: Nausea and vomiting. TECHNIQUE: Imaging performed of the abdomen and pelvis with IV contrast. Single phase imaging of the abdomen. Coronal and sagittal reformats are submitted. All CT scans at [facility] use at least one of these dose optimization techniques: automated exposure control; mA and/or kV adjustment per patient size (includes targeted exams where dose is matched to clinical indication); or iterativ e reconstruction. IV CONTRAST: Omnipaque 300; 95 mL IV. Oral contrast: No DLP: 1039.24 mGy.cm COMPARISON: 12/11/2019 Lower thorax: Lung bases are clear. Heart is normal size. No hiatal hernia. Liver/biliary system: Moderate hepatomegaly and PAC steatosis. No mass or bile duct dilatation. Gallbladder: Status post cholecystectomy. Pancreas: Normal. Spleen: Enlarged spleen measuring 15 cm in length. Adrenal glands: 2.3 cm low-attenuation RIGHT adrenal mass. Previously described and thought to be an adenoma. Normal LEFT adrenal gland. Right kidney: Enlarged kidney extending over length of 14 cm. No hydronephrosis. Straight nephrogram with variable enhancement and density throughout the kidney and mild perinephric stranding. Left kidney: Enlarged kidney extending over length of 14 cm. Variable enhancement and density through out the kidney with perinephric stranding. Striated nephrograms. Aorta: Mild atherosclerosis with no aneurysm. Lymphadenopathy: Small retroperitoneal lymph nodes are identified and not changed since the prior exa m from 10/11/2020. Free fluid: None. GI tract: No GI tract obstruction. The appendix is normal. There is mild fecal retention. No signific ant diverticular disease. Abdominal wall: Unremarkable abdominal wall. No hernia. Pelvis: Prior hysterectomy. Bones: Prior posterior lumbar fusion at L4-5. CT/CT abdomen pelvis w con* [id number] IMPRESSION: 1. Moderate to severe persistent bilateral pyelonephritis. Persistent pyelonep hritis since 10/11/2020 but slight improvement. 2. No hydronephrosis. 3. Normal appendix. 4. Moderate hepatosplenomegaly.
--- NOTE | 2020-11-06 11:47 | W.ED.NAVMDI ---
HPI - Nausea/Vomiting/Diarrhea General: Chief complaint: Nausea/Vomiting/Diarrhea Stated complaint: N/V, Trouble Eating, Here recently Time Seen by Provider: 11/06/20 11:14 Source: patient Mode of arrival: ambulatory Limitations: no limitations History of Present Illness: HPI Narrative: 50-year-old female who is in here recently for pneumonia and sepsis. Patient states that since she has been discharged she had nausea and vomiting and not feeling well. She states she has had body aches and generalized weakness. She denies any fever and her vital signs here are normal besides some slight tachycardia. States her pain is diffuse and rates it a 4 out of 10. States she is just not able to keep any foods down either and feels weak. Associated nausea: Yes Associated symtoms: Reports nausea; Denies chest pain, dysuria or headache(s) Review of Systems Const: Denies: fever(s), chills, body aches or change in appetite Eyes: Denies: blurry vision or eye discomfort ENMT: Denies: throat pain or dental pain Card: Denies: chest pain Resp: Denies: dyspnea GI: Reports: nausea and vomiting : Denies: dysuria Musc: Reports: joint pain Skin/Breast: Denies: rash Neuro: Denies: headache(s) Psych: Denies: depression Renny/Lymph: Denies: easy bruising All/Imm: Denies: urticaria PFSH ED PFSH: Medical History Depression Diabetes Encounter for long-term use of opiate analgesic Hypertension Insomnia superintendent 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-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 anti-inflammatories (nsaid) Lumbar post-laminectomy syndrome Opioid contract exists Spinal stenosis, cervical region Ulnar nerve impingement Surgical History H/O carpal tunnel repair H/O neck surgery H/O rotator cuff surgery H/O tubal ligation History of hysterectomy History of lumbar fusion S/P left knee arthroscopy Family History Other CAD (coronary artery disease) Cancer Stroke Denies family history of Anesthesia complication Bleeding disorder Social History Smoking and tobacco status: former smoker Alcohol intake: former History of recent travel: No Physical Exam Const: COMMON NORMALS: no acute distress, patient oriented x3 and healthy appearing HENMT: COMMON NORMALS: normocephalic and atraumatic HEAD & SCALP: normocephalic and atraumatic Eye: COMMON NORMALS: Equal, round and reactive pupils present and EOMs intact bilaterally PUPIL: Yes Equal, round and reactive pupils present Neck/C-Spine: COMMON NORMALS: full ROM and supple Chest: COMMONS NORMALS: normal inspection of the chest and normal palpation of entire chest wall Resp: COMMON NORMALS: normal respiratory effort, No retractions, No use of accessory muscles and clear to auscultation bilaterally AUSCULTATION: clear to auscultation bilaterally Cardio: COMMON NORMALS: regular rhythm and No murmurs present (Cardio) RATE: tachycardic RHYTHM: regular rhythm GI: COMMON NORMALS: Normal to inspection, nondistended, normoactive bowel sounds present, Soft to palpation, non-tender and no masses PALPATION: Yes Soft to palpation Extremity: COMMON NORMALS: normal to inspection and full ROM Neuro: COMMON NORMALS: patient oriented x3, moves all extremities and no focal motor deficits Psych: COMMON NORMALS: mental status grossly normal, Normal thought process present and cooperative THOUGHT PROCESS: Normal thought process present Skin: COMMON NORMALS: no rashes or lesions noted and no wounds GENERAL SKIN EXAM: no rashes or lesions noted Course Vital Signs: Vital signs: Vital Signs Temperature 96.8 F L 11/06/20 11:12 Pulse Rate 112 H 11/06/20 11:12 Respiratory Rate 18 11/06/20 11:12 Blood Pressure 132/94 11/06/20 11:12 Pulse Oximetry 100 11/06/20 11:12 MDM - Nausea/Vomiting/Diarrhea MDM Narrative: Medical decision making narrative: Nona presents here with bilateral pyelonephritis along with sepsis. Her lactate here is 4 4. Her blood pressure here has been stable and her pulse rate is decreased with IV fluids. She is hyperglycemic as well and has no signs of DKA. I spoke to hospitalist will admit. Started on vancomycin and aztreonam. Lab Data: Labs: Lab Results 11/06/20 11/06/20 11/06/20 Range/Units 11:50 11:50 11:50 WBC 13.1 H (4.0-10.0) 10^3/ uL RBC 3.58 L (4.1-5.3) 10^6/u L Hgb 10.3 L (11.5-15.3) g/dL Hct 30.7 L (37.0-47.0) % MCV 85.8 (81-99) fL MCH 28.8 (28.0-34.0) pg MCHC 33.6 (30.0-36.0) g/dL RDW 14.2 (12.1-15.1) % Plt Count 375 (130-400) 10^3/c mm MPV 10.4 (7.4-10.4) fL Neut % (Auto) 65.4 % Lymph % (Auto) 27.3 % [place] % (Auto) 5.3 % Eos % (Auto) 0.2 % Baso % (Auto) 0.5 % Neut # (Auto) 8.54 H (1.8-7.7) 10^3/u L Lymph # (Auto) 3.6 (0.8-4.8) 10^3/u L [place] # (Auto) 0.7 (0.2-0.9) 10^3/u L Eos # (Auto) 0.0 (0.0-0.8) 10^3/u L Baso # (Auto) 0.1 (0.0-0.1) 10^3/u L Nucleated RBC % (a uto) 0 % Nucleated RBCs # 0.0 /100WBC Sodium 125 L (136-145) mmol/L Potassium 3.6 (3.5-5.1) mmol/L Chloride 85 L (98-107) mmol/L Carbon Dioxide 23 (22-29) mmol/L Anion Gap 20.6 H (5-19) BUN 9 (6-20) mg/dL Creatinine 0.8 (0.5-0.9) mg/dL GFR Calculation 75.6 L (90-130) mL/min Glucose 557 H* (65-115) mg/dL Calculated Osmolal ity 284 L (285-295) mOsm/k g Lactate 4.4 H* (0.5-2.2) mmol/L Calcium 9.3 (8.5-10.5) mg/dL Total Bilirubin 0.3 (0.15-1.2) mg/dL AST 7 (0-32) U/L ALT 7 (0-33) U/L Alkaline Phosphata se 238 H (35-105) IU/L Total Protein 8.6 (6.6-8.7) g/dL Albumin 3.4 L (3.5-5.2) g/dL Globulin 5.2 H (1.3-4.6) g/dL Lipase 66 H (13-60) U/L Urine Color (Yellow) Urine Appearance (CLEAR) Urine pH (5-7) Ur Specific Gravit y (1.005-1.030) Urine Protein (Negative) Urine Glucose (UA) (Normal) Urine Ketones (Negative) Urine Blood (Negative) Urine Nitrate (Negative) Urine Bilirubin (Negative) Urine Urobilinogen (Negative) mg/dL Ur Leukocyte Fartun ase (Negative) Urine RBC (0-2) /hpf Urine WBC (0-5) /hpf Ur Squamous Epith Cells (0-5) /hpf Amorphous Sediment Urine Bacteria (NONE) /hpf 11/06/20 Range/Units 12:00 WBC (4.0-10.0) 10^3/ uL RBC (4.1-5.3) 10^6/u L Hgb (11.5-15.3) g/dL Hct (37.0-47.0) % MCV (81-99) fL MCH (28.0-34.0) pg MCHC (30.0-36.0) g/dL RDW (12.1-15.1) % Plt Count (130-400) 10^3/c mm MPV (7.4-10.4) fL Neut % (Auto) % Lymph % (Auto) % [place] % (Auto) % Eos % (Auto) % Baso % (Auto) % Neut # (Auto) (1.8-7.7) 10^3/u L Lymph # (Auto) (0.8-4.8) 10^3/u L [place] # (Auto) (0.2-0.9) 10^3/u L Eos # (Auto) (0.0-0.8) 10^3/u L Baso # (Auto) (0.0-0.1) 10^3/u L Nucleated RBC % (a uto) % Nucleated RBCs # /100WBC Sodium (136-145) mmol/L Potassium (3.5-5.1) mmol/L Chloride (98-107) mmol/L Carbon Dioxide (22-29) mmol/L Anion Gap (5-19) BUN (6-20) mg/dL Creatinine (0.5-0.9) mg/dL GFR Calculation (90-130) mL/min Glucose (65-115) mg/dL Calculated Osmolal ity (285-295) mOsm/k g Lactate (0.5-2.2) mmol/L Calcium (8.5-10.5) mg/dL Total Bilirubin (0.15-1.2) mg/dL AST (0-32) U/L ALT (0-33) U/L Alkaline Phosphata se (35-105) IU/L Total Protein (6.6-8.7) g/dL Albumin (3.5-5.2) g/dL Globulin (1.3-4.6) g/dL Lipase (13-60) U/L Urine Color Yellow (Yellow) Urine Appearance Hazy A (CLEAR) Urine pH 5 (5-7) Ur Specific Gravit y 1.005 (1.005-1.030) Urine Protein Neg (Negative) Urine Glucose (UA) 4+ H (Normal) Urine Ketones Negative (Negative) Urine Blood Neg (Negative) Urine Nitrate Negative (Negative) Urine Bilirubin Neg (Negative) Urine Urobilinogen Norm (Negative) mg/dL Ur Leukocyte Fartun ase 1+ H (Negative) Urine RBC Rare (0-2) /hpf Urine WBC >100 H (0-5) /hpf Ur Squamous Epith Cells Rare (0-5) /hpf Amorphous Sediment Not Reportable Urine Bacteria 1+ H (NONE) /hpf Imaging Data^: CXR: Radiologist's impression: [address] [place] [address] XRay Report Signed Patient: Analia Hurst Unit #: [id number] : 1970 Age/Sex: 50 / F ADM Date: 11/06/20 Loc: ER Room/Bed: Attending Dr: Ordering Provider/Ordering MD: Danuta Espinal MD Date of Service: 11/06/20 Procedure(s): XR chest 1V portable [id number] Accession Number(s): [id number] Report Number: [id number] WS: [id number] PORTABLE CHEST HISTORY: fever COMPARISON: 10/11/2020 Improved aeration since 10/11/2020. Less congestion. No persistent opacification. No pleural effusion or pneumothorax. Cardiac size: Normal. Mediastinum/Aorta: Mild atherosclerosis aorta. Prior anterior cervical fusion hardware. XR/XR chest 1V portable [id number] IMPRESSION: Resolved pneumonia and pulmonary congestion since 10/11/2020. No acute cardiopulmonary disease. CT Abd/Pel: Attestation: I personally reviewed and interpreted this imaging study as follows: Radiologist's impression: [address] [address] [address] Scan Report Signed Patient: Analia Hurst Unit #: [id number] : 1970 Age/Sex: 50 / F ADM Date: 11/06/20 Loc: ER Room/Bed: Attending Dr: Ordering Provider/Ordering MD: Danuta Espinal MD Date of Service: 11/06/20 Procedure(s): CT abdomen pelvis w con* [id number] Accession Number(s): [id number] Report Number: [id number] WS: [id number] CT ABDOMEN AND PELVIS WITH CONTRAST HISTORY: Nausea and vomiting. TECHNIQUE: Imaging performed of the abdomen and pelvis with IV contrast. Single phase imaging of the abdomen. Coronal and sagittal reformats are submitted. All CT scans at [facility] use at least one of these dose optimization techniques: automated exposure control; mA and/or kV adjustment per patient size (includes targeted exams where dose is matched to clinical indication); or iterative reconstruction. IV CONTRAST: Omnipaque 300; 95 mL IV. Oral contrast: No DLP: 1039.24 mGy.cm COMPARISON: 12/11/2019 Lower thorax: Lung bases are clear. Heart is normal size. No hiatal hernia. Liver/biliary system: Moderate hepatomegaly and PAC steatosis. No mass or bile duct dilatation. Gallbladder: Status post cholecystectomy. Pancreas: Normal. Spleen: Enlarged spleen measuring 15 cm in length. Adrenal glands: 2.3 cm low-attenuation RIGHT adrenal mass. Previously described and thought to be an adenoma. Normal LEFT adrenal gland. Right kidney: Enlarged kidney extending over length of 14 cm. No hydronephrosis. Straight nephrogram with variable enhancement and density throughout the kidney and mild perinephric stranding. Left kidney: Enlarged kidney extending over length of 14 cm. Variable enhancement and density throughout the kidney with perinephric stranding. Striated nephrograms. Aorta: Mild atherosclerosis with no aneurysm. Lymphadenopathy: Small retroperitoneal lymph nodes are identified and not changed since the prior exam from 10/11/2020. Free fluid: None. GI tract: No GI tract obstruction. The appendix is normal. There is mild fecal retention. No significant diverticular disease. Abdominal wall: Unremarkable abdominal wall. No hernia. Pelvis: Prior hysterectomy. Bones: Prior posterior lumbar fusion at L4-5. CT/CT abdomen pelvis w con* [id number] IMPRESSION: 1. Moderate to severe persistent bilateral pyelonephritis. Persistent pyelonephritis since 10/11/2020 but slight improvement. 2. No hydronephrosis. 3. Normal appendix. 4. Moderate hepatosplenomegaly. Critical Care Time Critical Care Time: Critical Care Time: Yes Total Critical Care Time: 36 Attestation: This case had a high probability of a clinically significant, sudden, or life threatening deterioration of this patient's condition which required my full and direct attention, intervention and personal management. 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
[2020-11-06] MEDS: iohexol 300 mg/mL 100 mL Btl IV (12:13)
[2020-11-06 12:20] LABS: Alanine Aminotransferase 7 U/L (0-33); Albumin Level 3.4 g/dL (3.5-5.2); Alkaline Phosphatase 238 IU/L (35-105); Anion Gap 20.6 (5-19); Aspartate Amino Transferase 7 U/L (0-32); Blood Urea Nitrogen 9 mg/dL (6-20); Calcium 9.3 mg/dL (8.5-10.5); Carbon Dioxide 23 mmol/L (22-29); Chloride 85 mmol/L (98-107); Globulin 5.2 g/dL (1.3-4.6); Glomerular Filtration Rate 75.6 mL/min (90-130); Lipase 66 U/L (13-60); Osmolality Calculated 284 mOsm/kg (285-295); Potassium 3.6 mmol/L (3.5-5.1); Sodium 125 mmol/L (136-145); Total Bilirubin 0.3 mg/dL (0.15-1.2); Total Protein 8.6 g/dL (6.6-8.7)
[2020-11-06 12:22] LABS: Basophils # 0.1 10^3/uL (0.0-0.1); Basophils % 0.5 %; Eosinophils % 0.2 %; Hematocrit 30.7 % (37.0-47.0); Hemoglobin 10.3 g/dL (11.5-15.3); Lymphocytes # 3.6 10^3/uL (0.8-4.8); Lymphocytes % 27.3 %; Mean Corpuscular HGB Conc 33.6 g/dL (30.0-36.0); Mean Corpuscular Hemoglobin 28.8 pg (28.0-34.0); Mean Corpuscular Volume 85.8 fL (81-99); Mean Platelet Volume 10.4 fL (7.4-10.4); Monocytes # 0.7 10^3/uL (0.2-0.9); Monocytes % 5.3 %; Neutrophils # 8.54 10^3/uL (1.8-7.7); Neutrophils % 65.4 %; Nucleated Red Blood Cells % 0 %; Platelet Count 375 10^3/cmm (130-400); Red Blood Count 3.58 10^6/uL (4.1-5.3); Red Cell Distribution Width 14.2 % (12.1-15.1); White Blood Count 13.1 10^3/uL (4.0-10.0)
[2020-11-06 12:34] LABS: Add Urine Microscopic? YES; Bilirubin Urine Neg (Negative); Blood Urine Neg (Negative); Glucose Urine UA 4+ (Normal); Ketones Urine Negative (Negative); Leukocyte Esterase Urine 1+ (Negative); Nitrate Urine Negative (Negative); Protein Urine Neg (Negative); Specific Gravity, Urine 1.005 (1.005-1.030); Urine Appearance Hazy (CLEAR); Urine Color Yellow (Yellow); Urobilinogen Urine Norm (Negative); pH Urine 5 (5-7)
[2020-11-06 12:34] LABS: Glucose 557 mg/dL (65-115); Lactate (Lactic Acid level) 4.4 mmol/L (0.5-2.2)
[2020-11-06 12:37] LABS: RBC Urine RARE /hpf (0-2)
[2020-11-06 12:38] LABS: Add Urine Culture? Yes; Bacteria Urine 1+ /hpf; Squamous Epithelial Cell Urine RARE /hpf (0-5); WBC Urine >100 /hpf (0-5)
[2020-11-06] MEDS: sodium chloride 0.9% 1,000 ML 999 ML IV (12:56)
[2020-11-06] MEDS: ondansetron 2 mg/ML SDV 2 mL 4 MG IVP (13:03)
[2020-11-06] MEDS: HYDROmorphone 1 mg/mL INJ 1 mL IVP ×2 (13:08→15:49)
[2020-11-06] MEDS: insulin regular-human 100 units/1 mL 10 UNIT IVP (13:12)
[2020-11-06] MEDS: aztreonam 2,000 MG in sodium chloride 0.9% (plus) 100 ML 200 MG IV (13:41)
[2020-11-06] MEDS: vancomycin 1,000 MG in sodium chloride 0.9% 250 ML 250 MG IV (14:22)
--- NOTE | 2020-11-06 18:00 | PM.HP ---
Providers/Chief Complaint Admitting Physician: Emmanuel Sevilla MD Primary Care Provider: Yesica Bailey MD Chief Complaint: N/V, Trouble Eating, Here recently History of Present Illness Analia Hurst is a 50 year old female with past medical history of type 2 diabetes mellitus on insulin, hypertension, longstanding opiate use for final stenosis, depression who was in hospital last month when she presented with altered mental status which was thought to be because of sepsis secondary to pyelonephritis. She was discharged home on Omnicef for 10 days. Patient presents to the ER today with worsening nausea, vomiting for last 4 days when she is not able to keep even liquids down as per the patient. Patient states she has not been feeling at her baseline since discharge with on and off back pain. Patient had a fever of 102 Fahrenheit last night. She states she has been feeling on and off subjective fevers though have not checked the last night. She denies any dysuria, diarrhea, headache, flulike symptoms, cough, exposure to COVID-19, increased frequency of urination, change in color of urination. States her bowel movements are regular with last bowel movement which was normal formed today morning. Patient states she has not been taking her insulin along with Lantus for last couple of days because of decreased oral intake. Blood work in the ER showed a white count of 13.1, hemoglobin of 10.3, left shift, sodium of 125, chloride of 85, blood glucose of 557, lactate of 4.4, alkaline phosphatase of 238, AST/ALT of 7/7, lipase of 66, UA with 4+ glucose, 1+ leuk esterase, more than 100 WBCs. In the ER she was given vancomycin, aztreonam, 1 L of IV fluid and 10 units of insulin. On examination patient is lying comfortably in bed sipping water stating she is feeling little better. Review of Systems General: Reports: 10 or more systems reviewed and unremarkable except in HPI and below Const: Denies: fever(s), chills, body aches, change in appetite, change in weight, malaise, night sweats, diaphoresis, change in sleep pattern, daytime sleepiness or snoring Eyes: Denies: change in vision, blurry vision, photophobia, eye discomfort or eye discharge ENMT: Denies: throat pain, enlarged tonsils, hoarseness, mouth pain, oral sores, dry mouth, tinnitus, nasal congestion or post nasal drip Card: Denies: chest pain, palpitations, irregular heart rhythm, edema, swelling of feet/ankles, lightheadedness, syncope, pre-syncope, dyspnea on exertion, orthopnea, leg pain with exertion or acrocyanosis Resp: Denies: dyspnea, productive cough, non-productive cough, wheezing, stridor, pain on inspiration, change in phlegm color, hemoptysis or chest congestion GI: Denies: abdominal pain, nausea, vomiting, hematemesis, coffee ground emesis, dysphagia, heartburn, diarrhea, constipation, bloating, GI cramping, change in bowel habits, pain on defecation, hematochezia or melena : Denies: flank pain, dysuria, urinary frequency, urinary urgency, urinary hesitancy, nocturia or hematuria Musc: Denies: neck pain, back pain, extremity pain, joint pain, joint swelling, joint redness, joint stiffness or limited range of motion Neuro: Denies: headache(s), numbness in extremities, weakness in extremities, sensory changes, lack of coordination, difficulty walking, frequent falls, dizziness, vertigo, confusion, Slurred speech present, difficulty communicating thoughts or seizure-like activity Psych: Denies: anxiety, depression, mood swings, panic attacks, hopelessness or irritability Endo: Denies: polyuria, polydipsia, tired all the time, cold intolerance, excessive sweating, flushing or heat intolerance Renny/Lymph: Denies: easy bruising or easy bleeding All/Imm: Denies: tongue swelling, facial swelling or acute wheezing Medications/Allergies Home Medications Medication Instructions Recorded Confirmed Last Taken Type multivitamin 1 cap PO DAILY@12/02/19 11/06/20 10/10/20 History nitroglycerin 0.4 mg sublingual 0.4 mg SUBLINGUAL Q5M PRN 12/02/19 11/06/20 Unknown History tablet oxymetazoline 0.05 % nasal spray 2 spray INTRANASAL Q12H PRN 12/02/19 11/06/20 Unknown History prazosin 1 mg capsule 1 mg PO DAILY@20 cap 12/02/19 11/06/20 10/10/20 History sumatriptan succinate 100 mg tablet 100 mg PO PRN PRN 12/02/19 11/06/20 Unknown History tizanidine 4 mg tablet 4 mg PO TID PRN 30 Days #90 tab 10/04/20 11/06/20 Unknown Rx Levemir FlexTouch U-100 Insuln 70 unit SUBCUT BID 10/11/20 11/06/20 10/10/20 History citalopram [Celexa] 40 mg PO DAILY@10/11/20 11/06/20 10/10/20 History insulin aspart U-100 [Novolog See Rx Instructions .ROUTE .COMPLEX 10/11/20 11/06/20 10/10/20 History Flexpen U-100 Insulin] ondansetron HCl 4 mg PO Q6H PRN 10/11/20 11/06/20 Unknown History ropinirole 2 mg PO DAILY@10/11/20 11/06/20 10/10/20 History zolpidem [Ambien] 10 mg PO DAILY@10/11/20 11/06/20 10/10/20 History oxycodone 5 mg PO Q12H PRN #20 tab 10/15/20 11/06/20 Unknown Rx Lyrica 300 mg PO BID@11/06/20 11/06/20 Unknown History hydrocortisone 1 applic [place] PRN 11/06/20 11/06/20 Unknown History oxycodone 30 mg PO TID PRN 11/06/20 11/06/20 Unknown History pantoprazole 40 mg PO DAILY@11/06/20 11/06/20 Unknown History polyethylene glycol 3350 [Miralax] 17 g PO DAILY PRN 11/06/20 11/06/20 Unknown History promethazine 12.5 mg PO BID PRN 11/06/20 11/06/20 Unknown History sennosides-docusate sodium 1 tab-cap PO DAILY@11/06/20 11/06/20 Unknown History [Senna-S] tramadol 100 mg PO TID PRN 11/06/20 11/06/20 Unknown History Allergies Allergy/AdvReac Type Severity Reaction Status Date / Time adhesive Allergy rash Verified 11/06/20 11:17 ketorolac [From Toradol] Allergy rash Verified 11/06/20 11:17 morphine Allergy rash Verified 11/06/20 11:17 nitrofurantoin Allergy rash Verified 11/06/20 11:17 [From Macrobid] Penicillins Allergy hives Verified 11/06/20 11:17 PFSH Acute PFSH: Medical History Depression Diabetes Encounter for long-term use of opiate analgesic Hypertension Insomnia USP (current) use of non-steroidal anti-inflammatories (nsaid) Lumbar post-laminectomy syndrome Opioid contract exists Spinal stenosis, cervical region Ulnar nerve impingement Surgical History H/O carpal tunnel repair H/O neck surgery H/O rotator cuff surgery H/O tubal ligation History of hysterectomy History of lumbar fusion S/P left knee arthroscopy Family History Other CAD (coronary artery disease) Cancer Stroke Denies family history of Anesthesia complication Bleeding disorder Social History Smoking and tobacco status: former smoker Alcohol intake: former History of recent travel: No Vitals/I&O/Wt Last Vital Signs Temp 98.0 F 11/06/20 17:39 Pulse 88 11/06/20 17:39 Resp 18 11/06/20 17:39 BP 124/78 11/06/20 17:39 Pulse Ox 96 11/06/20 17:39 11/06/20 11/06/20 11/06/20 06:59 14:59 22:59 Intake Total 100 / 100 1250 / 1350 Balance 100 / 100 1250 / 1350 Weight last 48 hrs Weight 81.647 kg Physical Exam Narrative: EXAM NARRATIVE: General: AO x3, central obesity, mild acute distress because of back pain and nausea HEENT: PERRLA, pupils bilaterally equal and reactive Chest: Normal vesicular breath sounds, no added sounds, equal good air entry bilaterally CVS: S1-S2 regular, no murmurs, no tachycardia, no gallops, no rubs Abdomen: Soft, nontender, no organomegaly, bowel sounds present, complaining of renal angle tenderness in left side on deep palpation., Complaining of spinal muscle tenderness Neuro: No focal deficits, no facial deformity, AO x3, power 5/5 in all limbs Data : 11/06/20 11:50 11/06/20 11:50 Micro: Microbiology 11/06/20 13:04 Blood Culture - Preliminary Blood SPECIMEN COLLECTED 11/06/20 13:32 Blood Culture - Preliminary Blood SPECIMEN COLLECTED A&P Assessment and plan (1) Sepsis: Status: Acute (2) Pyelonephritis: Status: Acute (3) Hyperglycemia: Status: Acute (4) Diabetes: Status: Acute Qualifiers: Diabetes mellitus type: type 2 Diabetes mellitus senior care insulin use: with senior care use Diabetes mellitus complication status: with hyperglycemia Qualified Code(s): E11.65 - Type 2 diabetes mellitus with hyperglycemia; Z79.4 - intermission coordinator (current) use of insulin (5) Nausea and vomiting: Status: Acute (6) Elevated alkaline phosphatase level: Status: Acute (7) NSAID induced gastritis: Status: Acute Additional A&P Information 50-year-old female with recent admission for pyelonephritis comes in because of worsening nausea and vomiting for last 4 days found to be in hyperglycemia, sepsis due to leukocytosis, tachycardia, elevated lactate with CT abdomen pelvis showing persistent pyelonephritis with minimal renal angle tenderness. Nausea/vomiting: Could be multifactorial. Could be secondary to pyelonephritis. But cannot rule out gastroparesis from severe uncontrolled hyperglycemia, NSAID induced gastritis, postcholecystectomy syndrome. Zofran as needed every 8 hours. Reglan. Monitor QTC. Start patient on bland diet. Alkaline phosphatase elevated while liver function within normal limits. Patient is post cholecystectomy. If patient continues to have symptoms can plan for MRCP. If patient does not improve will most likely require surgical consultation for endoscopy. Patient is agreeable to same. Protonix, Carafate. Bowel regimen. Sepsis: Criteria met through leukocytosis, tachycardia, lactic acidosis. Most likely secondary to UTI/pyelonephritis: Discharged recently on Omnicef. Urine culture at that time not ran because bacteria of less than 5000. CT abdomen pelvis done with contrast bleeding pyelonephritis though it could be remnant from recent infection. UA consistent with infection. Check blood culture, urine culture, procalcitonin, MRSA swab. For now continue with vancomycin. Start patient on Primaxin as patient is penicillin allergic. We will de-escalate antibiotics after the culture results. Hyperelycemia: Patient with history of type 2 diabetes mellitus: Most likely secondary to skipping insulin doses for last couple of days. Check HbA1c. Check BMP again in 12 hours to monitor for anion gap. Check ketone levels. Continue home dose of Lantus 70 units twice daily. Insulin sliding scale at high-dose protocol before meals and at bedtime. Dougherty carb consistent diet. Normal saline at 75 cc/h. Continue other chronic medications including Celexa, Lyrica, tizanidine at lower dose of 2 mg every 8 hours as needed, sumatriptan as needed, prazosin, oxycodone IR 30 mg every 8 hours as needed. May change medications as per clinical course. Full code. Protonix for PUD prophylaxis. Lovenox for DVT prophylaxis. Dougherty carb consistent diet. Attestations Medical Necessity Statement*: Admission for more than 2 midnights because of intractable nausea and vomiting in setting of sepsis secondary to pyelonephritis, uncontrolled hyperglycemia in setting of type 2 diabetes mellitus Time Spent in Patient Care: Greater than 35 minutes (>than 50% of time spent in counselling and/or direct pt care on unit). 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
[2020-11-06 18:07] LABS: Glucose Point of Care 421 mg/dL (70-110)
[2020-11-06 18:37] LABS: Amphetamines Screen Urine Negative (Negative); Barbiturates Screen Urine Negative (Negative); Benzodiazepines Screen Urine Negative (Negative); Cocaine Screen Urine Negative (Negative); Opiate Screen Urine Negative (Negative); PCP Screen Urine Negative (Negative); THC Screen Urine Negative (Negative)
[2020-11-06] MEDS: sodium chloride 0.9% 1,000 ML 100 ML IV (18:50)
[2020-11-06 18:51] LABS: Ketone (Acetest) Serum Negative (Negative)
[2020-11-06 18:53] LABS: Anion Gap 14.7 (5-19); Blood Urea Nitrogen 10 mg/dL (6-20); Calcium 8.8 mg/dL (8.5-10.5); Carbon Dioxide 28 mmol/L (22-29); Chloride 86 mmol/L (98-107); Glomerular Filtration Rate 105.4 mL/min (90-130); Glucose 408 mg/dL (65-115); Osmolality Calculated 276 mOsm/kg (285-295); Potassium 3.7 mmol/L (3.5-5.1); Sodium 125 mmol/L (136-145)
[2020-11-06 19:09] LABS: Thyroid Stimulating Hormone 1.75 uIU/mL (0.27-4.20)
[2020-11-06] MEDS: oxyCODONE IR 30 mg Tablet 15 MG PO (19:11)
[2020-11-06] MEDS: alum-mag-hydroxide-sime 30 mL UDC 15 ML PO (20:54)
[2020-11-06] MEDS: citalopram 20 mg Tablet 40 MG PO (20:55)
[2020-11-06] MEDS: pregabalin 150 mg Capsule 300 MG PO (20:55)
[2020-11-06] MEDS: ropinirole 2 mg Tablet PO (20:56)
[2020-11-06] MEDS: prazosin 1 mg Capsule PO (20:56)
[2020-11-06] MEDS: sennosides-docusate Tablet 1 TAB PO (20:56)
[2020-11-06] MEDS: sucralfate 1 gm/10 mL Oral Liq UDC PO (20:57)
[2020-11-06] MEDS: enoxaparin 40 mg/0.4 mL Syringe SUBCUT (20:58)
[2020-11-06 21:47] LABS: Glucose Point of Care 439 mg/dL (70-110)
[2020-11-06 21:55] LABS: Procalcitonin 0.28 ng/mL (0-0.5)
[2020-11-06] MEDS: metoclopramide 5 mg/mL SDV 2 mL IVP (21:59)
[2020-11-06 22:06] LABS: Iron 40 ug/dL (37-145); Percent Saturation 17.8 % (20-50); Total Iron Binding Capacity 224 mcg/dl; Unsaturated Iron Binding 184 ug/dL (112-347)
[2020-11-07] VITALS (9 sets, daily range): BP systolic 113–157; BP diastolic 62–78; PULSE 91–107; RESP 15–18; TEMP 36.7–37.4; O2SAT 91–98
[2020-11-07] MEDS: TRAMadol 50 mg Tablet 100 MG PO ×3 (00:11→17:08)
[2020-11-07] MEDS: vancomycin 1,000 MG in sodium chloride 0.9% 250 ML 250 MG IV (03:27)
[2020-11-07] MEDS: oxyCODONE IR 30 mg Tablet 15 MG PO (03:36)
[2020-11-07] MEDS: metoclopramide 5 mg/mL SDV 2 mL IVP ×3 (03:49→20:21)
[2020-11-07] MEDS: tizanidine 4 mg Tablet 2 MG PO ×3 (05:04→21:09)
[2020-11-07 05:18] LABS: Basophils % 0.3 %; Eosinophils % 0.2 %; Hematocrit 29.3 % (37.0-47.0); Hemoglobin 9.5 g/dL (11.5-15.3); Lymphocytes # 2.2 10^3/uL (0.8-4.8); Lymphocytes % 19.2 %; Mean Corpuscular HGB Conc 32.4 g/dL (30.0-36.0); Mean Corpuscular Hemoglobin 28.2 pg (28.0-34.0); Mean Corpuscular Volume 86.9 fL (81-99); Mean Platelet Volume 10.6 fL (7.4-10.4); Monocytes # 0.7 10^3/uL (0.2-0.9); Monocytes % 5.9 %; Neutrophils # 8.53 10^3/uL (1.8-7.7); Neutrophils % 73.4 %; Nucleated Red Blood Cells % 0 %; Platelet Count 290 10^3/cmm (130-400); Red Blood Count 3.37 10^6/uL (4.1-5.3); Red Cell Distribution Width 14.3 % (12.1-15.1); White Blood Count 11.6 10^3/uL (4.0-10.0)
[2020-11-07 05:39] LABS: Magnesium 1.6 mg/dL (1.7-2.3); Phosphorus 2.7 mg/dL (2.5-4.5)
[2020-11-07 05:44] LABS: Alanine Aminotransferase 7 U/L (0-33); Albumin Level 2.6 g/dL (3.5-5.2); Alkaline Phosphatase 198 IU/L (35-105); Anion Gap 15.4 (5-19); Aspartate Amino Transferase 7 U/L (0-32); Blood Urea Nitrogen 8 mg/dL (6-20); Calcium 8.3 mg/dL (8.5-10.5); Carbon Dioxide 22 mmol/L (22-29); Chloride 92 mmol/L (98-107); Globulin 4.4 g/dL (1.3-4.6); Glomerular Filtration Rate 105.4 mL/min (90-130); Glucose 355 mg/dL (65-115); Osmolality Calculated 275 mOsm/kg (285-295); Potassium 3.4 mmol/L (3.5-5.1); Sodium 126 mmol/L (136-145); Total Bilirubin 0.2 mg/dL (0.15-1.2)
[2020-11-07 05:45] LABS: Estmated Average Glucose 280; Hemoglobin A1C 11.4 % (4.0-6.0)
[2020-11-07] MEDS: sucralfate 1 gm/10 mL Oral Liq UDC PO ×4 (06:31→21:09)
[2020-11-07] MEDS: sodium chloride 0.9% 1,000 ML 100 ML IV ×2 (06:32→16:14)
--- NOTE | 2020-11-07 06:42 | PC.NURSE ---
Pt refused 70 units Levemir at 2100. Pt stated she believes this medication causes her stomach to cramp and sees in [facility] in [place] but is supposed to be switching to someone local.
[2020-11-07 06:44] LABS: Glucose Point of Care 462 mg/dL (70-110)
[2020-11-07] MEDS: alum-mag-hydroxide-sime 30 mL UDC 15 ML PO ×2 (09:02→20:23)
[2020-11-07] MEDS: pregabalin 150 mg Capsule 300 MG PO ×2 (09:03→21:09)
[2020-11-07] MEDS: pantoprazole DR 40 mg Tablet PO (09:03)
[2020-11-07 10:31] LABS: Glucose Point of Care > 600 mg/dL (70-110)
[2020-11-07] MEDS: oxyCODONE IR 30 mg Tablet PO ×2 (11:43→20:25)
[2020-11-07 11:50] LABS: Glucose Point of Care 522 mg/dL (70-110)
[2020-11-07] MEDS: glimepiride 2 mg Tablet PO ×2 (12:04→16:15)
--- NOTE | 2020-11-07 12:15 | PC.NURSE ---
Patients blood sugar was 522 notified physician. He add oral med and gave verbal order for 25 units at this time.
[2020-11-07 12:55] LABS: Alanine Aminotransferase 8 U/L (0-33); Albumin Level 2.7 g/dL (3.5-5.2); Alkaline Phosphatase 209 IU/L (35-105); Blood Urea Nitrogen 9 mg/dL (6-20); Calcium 8.5 mg/dL (8.5-10.5); Carbon Dioxide 22 mmol/L (22-29); Chloride 90 mmol/L (98-107); Globulin 4.5 g/dL (1.3-4.6); Glomerular Filtration Rate 105.4 mL/min (90-130); Glucose 429 mg/dL (65-115); Osmolality Calculated 275 mOsm/kg (285-295); Sodium 124 mmol/L (136-145); Total Bilirubin 0.2 mg/dL (0.15-1.2); Total Protein 7.2 g/dL (6.6-8.7)
[2020-11-07 13:07] LABS: Anion Gap 15.4 (5-19); Aspartate Amino Transferase 11 U/L (0-32); Potassium 3.4 mmol/L (3.5-5.1)
--- NOTE | 2020-11-07 14:59 | PM.PN ---
Subjective Subjective: Interval history: No acute events overnight. Patient has remained afebrile and hemodynamically stable. She is tolerating bland diet well. States her nausea and vomiting has resolved with Reglan. Complains of pain in epigastric area. Patient's blood sugars have been extremely elevated. Patient has been refusing her dose of Lantus. She has not been doing Lantus at home as well as she thinks Lantus is causing her to have abdominal pain. Patient states she follows up with telecommunications operator and [place]. She was started on Toujeo as she was requiring high doses of Lantus but has not been able to afford Toujeo recently so had to go back onto Lantus which she has not been taking as she thinks Lantus causes abdominal pain. Had extensive counseling and education session with patient regarding diabetes. Patient is extremely motivated. Explained to her that her symptoms of nausea, vomiting, abdominal pain are most likely secondary to gastroparesis from uncontrolled type 2 diabetes mellitus with HbA1c of more than 11, pancreatitis in setting of extreme hyperglycemia. Explained that in setting of her not being able to afford Toujeo Levemir becomes even more important even though she requires higher doses. She is agreeable to take Levemir. We also discussed for her to follow-up with telecommunications operator more regularly. She wants to follow-up with local telecommunications operator and have given her information regarding Dr. Bartholomew with whom she will follow up as an outpatient. Vitals/I&O/Wt Last Vital Signs Temp 98.0 F 11/07/20 11:40 Pulse 96 11/07/20 11:40 Resp 18 11/07/20 11:43 BP 135/69 11/07/20 11:40 Pulse Ox 98 11/07/20 11:40 11/06/20 11/07/20 11/07/20 22:59 06:59 14:59 Intake Total 1350 / 1450 1940 / 3390 700 / 700 Output Total 500 / 500 4400 / 4400 Balance 1350 / 1450 1440 / 2890 -3700 / -3700 Weight last 48 hrs Weight 86.046 kg Weight 81.647 kg Physical Exam Narrative: EXAM NARRATIVE: General: AO x3, central obesity, mild acute distress because of back pain and nausea HEENT: PERRLA, pupils bilaterally equal and reactive Chest: Normal vesicular breath sounds, no added sounds, equal good air entry bilaterally CVS: S1-S2 regular, no murmurs, no tachycardia, no gallops, no rubs Abdomen: Soft, nontender, no organomegaly, bowel sounds present, complaining of renal angle tenderness in left side on deep palpation., Complaining of spinal muscle tenderness Neuro: No focal deficits, no facial deformity, AO x3, power 5/5 in all limbs Data : 11/07/20 04:30 11/07/20 12:07 Micro: Microbiology 11/06/20 13:32 Blood Culture - Preliminary Blood NEGATIVE TO DATE 11/06/20 13:04 Blood Culture - Preliminary Blood NEGATIVE TO DATE 11/06/20 12:00 Urine Culture - Preliminary Urine,Clean Catch A&P Assessment and plan (1) Sepsis: Status: Acute (2) Pyelonephritis: Status: Acute (3) Hyperglycemia: Status: Acute (4) Diabetes: Status: Acute Qualifiers: Diabetes mellitus type: type 2 Diabetes mellitus technician terminal and repeater insulin use: with technician terminal and repeater use Diabetes mellitus complication status: with hyperglycemia Qualified Code(s): E11.65 - Type 2 diabetes mellitus with hyperglycemia; Z79.4 - senior care (current) use of insulin (5) Nausea and vomiting: Status: Acute (6) Elevated alkaline phosphatase level: Status: Acute (7) NSAID induced gastritis: Status: Acute Additional A&P Information 50-year-old female with recent admission for pyelonephritis comes in because of worsening nausea and vomiting for last 4 days found to be in hyperglycemia, sepsis due to leukocytosis, tachycardia, elevated lactate with CT abdomen pelvis showing persistent pyelonephritis with minimal renal angle tenderness. Nausea/vomiting: Most likely secondary to gastroparesis in setting of severe uncontrolled hyperglycemia, NSAID induced gastritis. Pyelonephritis less likely at present. Zofran as needed every 8 hours. Reglan. Monitor QTC. Currently 418 Continue bland diet. Patient would most likely require bland diet for next 1 week even as an outpatient and then would need to advance gradually. Alkaline phosphatase elevated while liver function within normal limits. Patient is post cholecystectomy. If patient continues to have symptoms can plan for MRCP. For now as patient symptoms are resolving we will hold off on surgical consultation.. Protonix, Carafate. Bowel regimen. Sepsis: Criteria met through leukocytosis, tachycardia, lactic acidosis. Most likely secondary to UTI/pyelonephritis: Discharged recently on Omnicef. Urine culture at that time not ran because gram-negative rods of less than 5000. CT abdomen pelvis done with contrast bleeding pyelonephritis though it could be remnant from recent infection. UA consistent with infection. Continue with Primaxin for now. Blood cultures and urine culture have remained negative. Procalcitonin negative. MRSA negative so we will stop vancomycin. Hyperelycemia: Patient with history of type 2 diabetes mellitus: Most likely secondary to skipping insulin doses for last couple of days. HbA1c more than 11. Ketones negative, no anion anion gap on BMP. Continue with Lantus 70 units twice daily. Insulin sliding scale at high dose every 4 hours. Will increase dose of Levemir as per the amount of Humalog required in next 24 hours. Add glimepiride 2 mg twice daily. Monitor for hypoglycemia. [place] carb consistent diet. Normal saline at 75 cc/h. Continue other chronic medications including Celexa, Lyrica, tizanidine at lower dose of 2 mg every 8 hours as needed, sumatriptan as needed, prazosin, oxycodone IR 30 mg every 8 hours as needed. May change medications as per clinical course. Full code. Protonix for PUD prophylaxis. Lovenox for DVT prophylaxis. [place] carb consistent diet. Attestations Medical Necessity Statement*: Patient requires further hospitalization for management of uncontrolled hyperglycemia requiring high doses of insulin, nausea and vomiting in setting of gastroparesis and possible sepsis secondary to pyelonephritis. Time Spent in Patient Care: Greater than 35 minutes (>than 50% of time spent in counselling and/or direct pt care on unit). Coding Level of Care Code Acute Nutrition Program Instructor for [facility] Diagnoses Sepsis A41.9 Pyelonephritis N12 Hyperglycemia R73.9 Diabetes E11.65; Z79.4 Diabetes mellitus type: type 2 Diabetes mellitus fci insulin use: with fci use Diabetes mellitus complication status: with hyperglycemia Nausea and vomiting R11.2 Elevated alkaline phosphatase level R74.8 NSAID induced gastritis K29.60; T39.395A
[2020-11-07 16:07] LABS: Glucose Point of Care 349 mg/dL (70-110)
[2020-11-07] MEDS: lactulose oral liq 20 gm/30 mL UDC 10 GM PO (17:09)
[2020-11-07 18:35] LABS: Glucose Point of Care 193 mg/dL (70-110)
[2020-11-07 20:03] LABS: Glucose Point of Care 224 mg/dL (70-110)
[2020-11-07] MEDS: enoxaparin 40 mg/0.4 mL Syringe SUBCUT (20:23)
[2020-11-07] MEDS: sennosides-docusate Tablet 1 TAB PO (20:24)
[2020-11-07] MEDS: citalopram 20 mg Tablet 40 MG PO (20:24)
[2020-11-07] MEDS: ropinirole 2 mg Tablet PO (20:24)
[2020-11-07] MEDS: prazosin 1 mg Capsule PO (20:25)
[2020-11-08] VITALS (8 sets, daily range): BP systolic 107–164; BP diastolic 68–84; PULSE 88–107; RESP 16–18; TEMP 36.6–38.1; O2SAT 94–97
[2020-11-08 03:57] LABS: Glucose Point of Care 108 mg/dL (70-110)
[2020-11-08 03:57] LABS: Glucose Point of Care 290 mg/dL (70-110)
[2020-11-08] MEDS: metoclopramide 5 mg/mL SDV 2 mL IVP (04:39)
[2020-11-08] MEDS: TRAMadol 50 mg Tablet 100 MG PO (04:50)
[2020-11-08] MEDS: sodium chloride 0.9% 1,000 ML 100 ML IV (04:53)
[2020-11-08] MEDS: glimepiride 2 mg Tablet PO ×2 (06:31→16:58)
[2020-11-08] MEDS: sucralfate 1 gm/10 mL Oral Liq UDC PO ×2 (06:31→16:58)
[2020-11-08] MEDS: oxyCODONE IR 30 mg Tablet PO ×2 (06:31→15:01)
[2020-11-08 07:57] LABS: Glucose Point of Care 217 mg/dL (70-110)
[2020-11-08] MEDS: pantoprazole DR 40 mg Tablet PO (08:22)
[2020-11-08] MEDS: alum-mag-hydroxide-sime 30 mL UDC 15 ML PO (08:22)
[2020-11-08] MEDS: pregabalin 150 mg Capsule 300 MG PO (08:22)
--- NOTE | 2020-11-08 09:53 | MR_ITS ---
WS: [id number] MRCP (MAGNETIC RESONANCE CHOLANGIOPANCREATOGRAPHY) HISTORY: post cholecystectomy syndrome, r/o CBD obstruction COMPARISON: 11/06/2020. TECHNIQUE: Multiple sequences are performed to evaluate the intra and extrahepatic ducts. Normal common bile duct measures 5 mm. There is no dilatation or stricture. No intrahepatic or extrah epatic duct dilatation. Pancreatic duct is normal. Prior cholecystectomy. The liver is slightly enlarged. Spleen is also slightly enlarged. No ascites or pleural fluid. LEFT r enal cyst measures 8 mm. MR/MR MRCP [id number] IMPRESSION: 1. Normal common bile duct. 2. Prior cholecystectomy. 3. Mild hepatomegaly and hepatic steatosis and splenomegaly.
[2020-11-08 10:22] LABS: Basophils % 0.3 %; Eosinophils % 0.4 %; Hematocrit 26.6 % (37.0-47.0); Hemoglobin 8.6 g/dL (11.5-15.3); Lymphocytes # 2.6 10^3/uL (0.8-4.8); Lymphocytes % 27.8 %; Mean Corpuscular HGB Conc 32.3 g/dL (30.0-36.0); Mean Corpuscular Hemoglobin 28.1 pg (28.0-34.0); Mean Corpuscular Volume 86.9 fL (81-99); Mean Platelet Volume 9.8 fL (7.4-10.4); Monocytes # 0.5 10^3/uL (0.2-0.9); Monocytes % 5.2 %; Neutrophils # 5.98 10^3/uL (1.8-7.7); Neutrophils % 64.7 %; Nucleated Red Blood Cells % 0 %; Platelet Count 261 10^3/cmm (130-400); Red Blood Count 3.06 10^6/uL (4.1-5.3); Red Cell Distribution Width 14.3 % (12.1-15.1); White Blood Count 9.3 10^3/uL (4.0-10.0)
[2020-11-08 10:37] LABS: Alanine Aminotransferase 7 U/L (0-33); Albumin Level 2.5 g/dL (3.5-5.2); Alkaline Phosphatase 169 IU/L (35-105); Anion Gap 13.2 (5-19); Aspartate Amino Transferase 14 U/L (0-32); Blood Urea Nitrogen 7 mg/dL (6-20); Calcium 8.1 mg/dL (8.5-10.5); Carbon Dioxide 24 mmol/L (22-29); Chloride 98 mmol/L (98-107); Globulin 3.8 g/dL (1.3-4.6); Glomerular Filtration Rate 88.2 mL/min (90-130); Glucose 245 mg/dL (65-115); Osmolality Calculated 280 mOsm/kg (285-295); Potassium 3.2 mmol/L (3.5-5.1); Sodium 132 mmol/L (136-145); Total Bilirubin 0.2 mg/dL (0.15-1.2); Total Protein 6.3 g/dL (6.6-8.7)
[2020-11-08 13:40] LABS: Glucose Point of Care 127 mg/dL (70-110)
[2020-11-08] MEDS: tizanidine 4 mg Tablet 2 MG PO (15:02)
--- NOTE | 2020-11-08 15:21 | P.DS_ITS ---
Discharge Providers Date of Admission: 11/06/20 16:59 Date of Discharge: November 08, 2020 Attending Provider at Admission: Emmanuel Sevilla MD Attending Provider at Discharge: Emmanuel Sevilla MD Primary Care Provider: Yesica Bailey MD Diagnoses at Discharge Discharge Diagnosis (1) Sepsis: Status: Acute (2) Pyelonephritis: Status: Acute (3) Hyperglycemia: Status: Acute (4) Diabetes: Status: Acute Qualifiers: Diabetes mellitus type: type 2 Diabetes mellitus oysterman insulin use: with oysterman use Diabetes mellitus complication status: with hyperglycemia Qualified Code(s): E11.65 - Type 2 diabetes mellitus with hyperglycemia; Z79.4 - [facility] (current) use of insulin (5) Nausea and vomiting: Status: Acute (6) Elevated alkaline phosphatase level: Status: Acute Permanent problem details: Appears to be GI in etiology related to NSAID induced gastritis and constipation. Patient does not appear to have evidence of acute cholecystitis. (7) NSAID induced gastritis: Status: Acute Permanent problem details: Likely present on admission Reason for Visit Reason for Visit: N/V, Trouble Eating, Here recently Hospital Course Hospital Course Analia Hurst is a 50 year old female with past medical history of type 2 diabetes mellitus on insulin, hypertension, longstanding opiate use for final stenosis, depression who was in hospital last month when she presented with altered mental status which was thought to be because of sepsis secondary to pyelonephritis. She was discharged home on Omnicef for 10 days. Patient presents to the ER today with worsening nausea, vomiting for last 4 days when she is not able to keep even liquids down as per the patient. Patient states she has not been feeling at her baseline since discharge with on and off back pain.She states she has been feeling on and off subjective fevers though have not checked the last night. She denies any dysuria, diarrhea, headache, flulike symptoms, cough, exposure to COVID-19, increased frequency of urination, change in color of urination. States her bowel movements are regular with last bowel movement which was normal formed today morning. Patient states she has not been taking her insulin along with Lantus for last couple of days because of decreased oral intake. Blood work in the ER showed a white count of 13.1, hemoglobin of 10.3, left shif t, sodium of 125, chloride of 85, blood glucose of 557, lactate of 4.4, alkaline phosphatase of 238, AST/ALT of 7/7, lipase of 66, UA with 4+ glucose, 1+ leuk esterase, more than 100 WBCs, 1+ bacteria. Patient went to the hospital for management of nausea and vomiting and hyperglycemia. There was some concerns of persistent pyelonephritis on the CT scan however she was started on broad-spectrum antibiotics. Patient did not have any other symptoms of UTI or urinary infection. During hospitalization T- max 100.6 Fahrenheit. She was started on bland diet which she tolerated well without any episodes of vomiting. CT abdomen was done which was negative for hydronephrosis, normal appendix, moderate hepatosplenomegaly with moderate bilateral pyelonephritis. MRCP which showed normal CBD without any dilatation. It is believed patient symptoms are most likely due to combination of gastroparesis in setting of severe uncontrolled hyperglycemia, NSAID induced gastritis. For hyperglycemia patient stated that she was supposed to take Toujeo as an outpatient which was declined by insurance company so she was started back on Levemir which she has not been taking as she thought Levemir made making her sick. She states her blood sugars at home are also extremely high. She was started back on her home dose of Levemir, Humalog and glimepiride was added to her medication list. She is been discharged and advised to follow-up with Dr. Bartholomew from endocrinology. Her dose of Levemir has been increased to 80 units twice daily along with Humalog as per the sliding scale and glimepiride has been added to her medication list. Hospital nausea and vomiting it is most likely secondary to gastritis and gastroparesis from severe hyperglycemia. She was started on a bland diet along with PPI and Carafate which she tolerated well and did not have any episode of vomiting during hospitalization. She is advised to continue bland diet for next 1 week and then to advance gradually as tolerated to regular meal. She is advised to continue taking PPI and Carafate along with Reglan for next 2 to 3 weeks. Other causes of abdominal pain, nausea and vomiting were ruled out with a negative MRCP, CT on previous negative for appendicitis. There was some concern of pyelonephritis on CT scan which is most likely a remnant of pyelonephritis from her episode of the infection within the last 2 to 3 weeks. Patient did not have any leukocytosis, blood culture and urine culture remain negative. She is been discharged in hemodynamically stable condition advised to follow-up with primary care provider in the next 2 weeks, Dr. Bartholomew set appointment on adjusted antidiabetic medications and oral antibiotics for 5 more days. She is advised to continue taking bland diet for next 2 weeks and advance gradually as possible. She is advised to continue taking PPIs and Carafate while trying to avoid NSAIDs as much as possible. Physical Exam Narrative: EXAM NARRATIVE: General: AO x3, central obesity, mild acute distress because of back pain and nausea HEENT: PERRLA, pupils bilaterally equal and reactive Chest: Normal vesicular breath sounds, no added sounds, equal good air entry bilaterally CVS: S1-S2 regular, no murmurs, no tachycardia, no gallops, no rubs Abdomen: Soft, nontender, no organomegaly, bowel sounds present, complaining of renal angle tenderness in left side on deep palpation., Complaining of spinal muscle tenderness Neuro: No focal deficits, no facial deformity, AO x3, power 5/5 in all limbs Discharge Data Data Completed and Pending: Completed Studies During Hospitalization Category Date Time Status CT abdomen pelvis w con* [id number] Urge nt Cat Scan 11/06/20 11:18 Completed XR chest 1V bety ble [id number] Urgent Exams 11/06/20 11:18 Completed MR MRCP [id number] Rou mayra MRI 11/08/20 09:53 Completed Pending at discharge Category Date Time Status Blood Culture Sta t Lab 11/06/20 13:04 Results Labs from last 24 hours 11/08/20 11/08/20 11/08/20 13:36 10:12 10:12 WBC 9.3 RBC 3.06 L Hgb 8.6 L Hct 26.6 L MCV 86.9 MCH 28.1 MCHC 32.3 RDW 14.3 Plt Count 261 MPV 9.8 Neut % (Auto) 64.7 Lymph % (Auto) 27.8 Lander % (Auto) 5.2 Eos % (Auto) 0.4 Baso % (Auto) 0.3 Neut # (Auto) 5.98 Lymph # (Auto) 2.6 Lander # (Auto) 0.5 Eos # (Auto) 0.0 Baso # (Auto) 0.0 Nucleated RBC % (a uto) 0 Nucleated RBCs # 0.0 Sodium 132 L Potassium 3.2 L Chloride 98 Carbon Dioxide 24 Anion Gap 13.2 BUN 7 Creatinine 0.7 GFR Calculation 88.2 L Glucose 245 H POC Glucose 127 Calculated Osmolal ity 280 L Calcium 8.1 L Total Bilirubin 0.2 AST 14 ALT 7 Alkaline Phosphata se 169 H Total Protein 6.3 L Albumin 2.5 L Globulin 3.8 11/08/20 11/08/20 11/08/20 07:54 03:52 00:10 WBC RBC Hgb Hct MCV MCH MCHC RDW Plt Count MPV Neut % (Auto) Lymph % (Auto) Lander % (Auto) Eos % (Auto) Baso % (Auto) Neut # (Auto) Lymph # (Auto) Lander # (Auto) Eos # (Auto) Baso # (Auto) Nucleated RBC % (a uto) Nucleated RBCs # Sodium Potassium Chloride Carbon Dioxide Anion Gap BUN Creatinine GFR Calculation Glucose POC Glucose 217 108 290 Calculated Osmolal ity Calcium Total Bilirubin AST ALT Alkaline Phosphata se Total Protein Albumin Globulin 11/07/20 11/07/20 11/07/20 20:01 18:33 16:04 WBC RBC Hgb Hct MCV MCH MCHC RDW Plt Count MPV Neut % (Auto) Lymph % (Auto) Lander % (Auto) Eos % (Auto) Baso % (Auto) Neut # (Auto) Lymph # (Auto) Lander # (Auto) Eos # (Auto) Baso # (Auto) Nucleated RBC % (a uto) Nucleated RBCs # Sodium Potassium Chloride Carbon Dioxide Anion Gap BUN Creatinine GFR Calculation Glucose POC Glucose 224 193 349 Calculated Osmolal ity Calcium Total Bilirubin AST ALT Alkaline Phosphata se Total Protein Albumin Globulin Vitals: Last Vital Signs Temp 98.3 F 11/08/20 11:09 Pulse 89 11/08/20 11:09 Resp 18 11/08/20 15:01 BP 127/77 11/08/20 11:09 Pulse Ox 97 11/08/20 11:09 Discharge Plan Discharge Patient Disposition: Home Condition: Stable Prescriptions: New sucralfate 100 mg/mL Suspension 1 g PO AC&BEDTIME Qty: 300 RF: 0 glimepiride 2 mg Tablet 2 mg PO BIDAC Qty: 60 RF: 0 Protonix [address] for susp in packet 40 mg PO BID Qty: 30 RF: 0 metoclopramide HCl [Reglan] 10 mg tablet 10 mg PO Q6H Qty: 30 RF: 0 cefdinir 300 mg capsule 300 mg PO BID 5 Days Qty: 10 RF: 0 Continued prazosin 1 mg capsule 1 mg PO DAILY@20 RF: 0 sumatriptan succinate [Imitrex] 100 mg tablet 100 mg PO PRN PRN (Reason: Migraine Headache) RF: 0 nitroglycerin [Nitrostat] 0.4 mg tablet, sublingual 0.4 mg SUBLINGUAL Q5M PRN (Reason: Chest Pain) RF: 0 oxymetazoline [Afrin (oxymetazoline)] 0.05 % spray,non-aerosol 2 spray INTRANASAL Q12H PRN (Reason: Nasal Congestion) RF: 0 multivitamin Capsule 1 cap PO DAILY@08 RF: 0 tizanidine 4 mg tablet 4 mg PO TID PRN (Reason: muscle spasticity) 30 Days Qty: 90 RF: 1 citalopram [Celexa] 40 mg tablet 40 mg PO DAILY@20 RF: 0 ondansetron HCl 4 mg tablet 4 mg PO Q6H PRN (Reason: Nausea) RF: 0 ropinirole 2 mg tablet 2 mg PO DAILY@20 RF: 0 zolpidem [Ambien] 10 mg tablet 10 mg PO DAILY@20 RF: 0 insulin aspart U-100 [Novolog Flexpen U-100 Insulin] 100 unit/mL (3 mL) insulin pen See Rx Instructions .ROUTE .COMPLEX RF: 0 tramadol 50 mg tablet 100 mg PO TID PRN (Reason: Pain) RF: 0 hydrocortisone 2.5 % Cream With Perineal Applicator 1 applic NE PRN RF: 0 oxycodone 30 mg tablet 30 mg PO TID PRN (Reason: Pain) RF: 0 Senna-S 8.6-50 mg tablet 1 tab-cap PO DAILY@20 RF: 0 pantoprazole 40 mg tablet,delayed release (DR/EC) 40 mg PO DAILY@08 RF: 0 promethazine 25 mg tablet 12.5 mg PO BID PRN (Reason: nausea and vomiting) RF: 0 Miralax 17 gram/dose powder 17 g PO DAILY PRN (Reason: Constipation) RF: 0 Lyrica 300 mg capsule 300 mg PO BID@08,20 RF: 0 Changed Levemir FlexTouch U-100 Insuln 100 unit/mL (3 mL) insulin pen 80 unit SUBCUT BID Qty: 0 RF: 0 Discontinued oxycodone 5 mg Tablet 5 mg PO Q12H PRN (Reason: Moderate Pain) Qty: 20 RF: 0 Discharge Orders: Discharge Order (Routine); Ordered 11/08/20 Ordered By: Emmanuel Sevilla Referrals: Yesica Bailey MD [Primary Care Provider] - 1 week David Bartholomew MD [Physician] - 12/10/20 8:00 am Discharge Diet: Advance as tolerated and As Directed Discharge Activity: Resume usual activity Activity Restrictions/Additional Instructions: Please take bland/brat diet for next couple of weeks and then advance gradually. Please follow-up with designer/writer on set appointment. Till then continue taking your Levemir after directed along with glimepiride and Humalog. Discharge Attestations Time Spent in Discharge Care*: greater than 30 min Specific Discharge Activities: educating patient, discussing with pcp/other providers, discussing with pillowcase sewer/social workers/dc planners, documenting/other paperwork and evaluating patient/reviewing data Status at Discharge: Cognitive status at discharge: cognitively intact , Behavioral status at discharge: cooperative , Functional status at discharge: independent ambulation Overall status at discharge: patient is back to baseline Quality Metrics Clinical Quality Measures During this hospital stay, did patient experience: None Coding Level of Care Code 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
[2020-11-08 16:59] LABS: Glucose Point of Care 386 mg/dL (70-110)
--- NOTE | 2020-11-08 17:40 | PC.NURSE ---
DC instructions given to patient voiced full understanding, IV DC'd cath intact bleeding controlled with 2x2 and coban, patient to main entrance via wheelchair to private vehicle with zero difficulties
== END 2020-11-08 17:40 | disposition home or self-care (01) | DRG 872 ==
LOC: ER 13:43 → MEDSURG 15:02
PROVIDERS: Admitting Provider Student in an Organized Health Care Education/Training Program; Emergency Provider Emergency Medicine; PCP Family Medicine; Visit Provider Student in an Organized Health Care Education/Training Program
DX: A41.9 Sepsis, unspecified organism (principal); N10 Acute pyelonephritis; E87.2 Acidosis; N39.0 Urinary tract infection, site not specified; E11.65 Type 2 diabetes mellitus with hyperglycemia; E11.43 Type 2 diabetes mellitus with diabetic autonomic (poly)neuropathy; K31.84 Gastroparesis; I10 Essential (primary) hypertension; Z79.891 Long term (current) use of opiate analgesic; F32.9 Major depressive disorder, single episode, unspecified; G47.00 Insomnia, unspecified; Z79.1 Long term (current) use of non-steroidal anti-inflammatories (NSAID); Z98.1 Arthrodesis status; Z87.891 Personal history of nicotine dependence; R74.8 Abnormal levels of other serum enzymes; K29.70 Gastritis, unspecified, without bleeding; T39.395A Adverse effect of other nonsteroidal anti-inflammatory drugs [NSAID], initial encounter; T38.3X6A Underdosing of insulin and oral hypoglycemic [antidiabetic] drugs, initial encounter; Z91.128 Patient's intentional underdosing of medication regimen for other reason; Z79.4 Long term (current) use of insulin
CPT/HCPCS: 12345; 36415; 36416; 71045; 74177; 74181; 80048; 80053; 80306; 81001; 82009; 82962; 83036; 83540; 83550; 83605; 83690; 83735; 84100; 84145; 84443; 85025; 87040; 87086; 87641; 94664; 96372; 96375; 99283; J0743; J1170; J1650; J1815; J2405; J2765; J3370; J3490; J7030; J7050; Q9967

== ENCOUNTER → 2020-11-29 07:48 | Outpatient (BNVA) | payer MEDICAID, SELFPAY | PROVIDERS: PCP Family Medicine; Visit Provider Anesthesiology | DX: M54.9 Dorsalgia, unspecified (principal); M54.6 Pain in thoracic spine; M48.02 Spinal stenosis, cervical region; M96.1 Postlaminectomy syndrome, not elsewhere classified; Z79.891 Long term (current) use of opiate analgesic | CPT/HCPCS: 99215 ==

== ENCOUNTER → 2020-12-10 08:14 | Outpatient (BNVA) | payer MEDICAID, SELFPAY | PROVIDERS: PCP Family Medicine; Referring Provider Student in an Organized Health Care Education/Training Program; Visit Provider Internal Medicine | DX: E11.40 Type 2 diabetes mellitus with diabetic neuropathy, unspecified (principal); E11.59 Type 2 diabetes mellitus with other circulatory complications; I25.10 Atherosclerotic heart disease of native coronary artery without angina pectoris; E11.65 Type 2 diabetes mellitus with hyperglycemia; Z79.4 Long term (current) use of insulin; E78.5 Hyperlipidemia, unspecified; K59.03 Drug induced constipation; R10.9 Unspecified abdominal pain; R11.2 Nausea with vomiting, unspecified | CPT/HCPCS: 99205 ==

== ENCOUNTER 2020-12-24 07:50 | Outpatient (CLI) | payer MEDICAID, SELFPAY ==
--- NOTE | 2020-12-24 08:00 | CT_ITS ---
WS: [id number] CT THORACIC SPINE HISTORY: M54.6 - Pain in thoracic spine TECHNIQUE: Contiguous 2.5 mm axial images are reviewed to thoracic spine. Images are reformatted in s agittal and coronal planes. All CT scans at [facility] use at least one of these dose opt imization techniques: automated exposure control; mA and/or kV adjustment per patient size (includes targeted exams where dose is matched to clinical indication); or iterative reconstruction. DLP: 1087.75 mGycm COMPARISON: MRI of thoracic spine 05/18/2015 Very slight increased curvature of the thoracic spine. Mild disc space narrowing and desiccation and endplate osteophytosis throughout the cervical spine. No fractures. Cervical fusion hardware in the l ower cervical spine. T1-2: Normal. T2-3: Normal. T3-4: RIGHT lateral vertebral body osteophyte extends posteriorly from the disc. Osteophyte extends posteriorly by 5.7 mm with with a 6.6 mm. There is encroachment upon the RIGHT lateral thecal sac. Th ere is additional very small osteophyte in the LEFT paracentral location. T4-5: Normal. T5-6: Tiny central osteophyte. No stenosis. T6-7: Very shallow LEFT paracentral osteophyte. No stenosis. T7-8: Normal. T8-9: Normal. T9-10: Normal. T10-11: Normal. T11-12: Normal. Prior cholecystectomy. L4-[address]/CT thoracic spin wo con* [id number] IMPRESSION: 1. No high-grade stenosis. 2. Osteophyte encroachment upon the thecal sac at the T3-4 level with contact and deformity of the thoracic cord. RIGHT lateral osteophyte measures 5.7 x 6.6 mm. Smaller osteophyte LEFT paracentral location. 3. Prior cholecystectomy.
== END 2020-12-24 07:51 | disposition home or self-care (01) ==
LOC: RADWPI 07:53
PROVIDERS: PCP Family Medicine; Visit Provider Anesthesiology
DX: M54.6 Pain in thoracic spine (principal); M25.78 Osteophyte, vertebrae; Z90.49 Acquired absence of other specified parts of digestive tract
CPT/HCPCS: 72128

== ENCOUNTER → 2021-02-06 08:00 | Outpatient (BNVA) | payer MEDICAID, SELFPAY | PROVIDERS: PCP Family Medicine; Visit Provider Anesthesiology | DX: G89.29 Other chronic pain (principal); M48.02 Spinal stenosis, cervical region; M54.9 Dorsalgia, unspecified; M96.1 Postlaminectomy syndrome, not elsewhere classified; Z79.891 Long term (current) use of opiate analgesic | CPT/HCPCS: 99214 ==

== ENCOUNTER → 2021-03-12 08:44 | Outpatient (BNVA) | payer MEDICAID, SELFPAY | PROVIDERS: PCP Family Medicine; Visit Provider Internal Medicine | DX: E11.40 Type 2 diabetes mellitus with diabetic neuropathy, unspecified (principal); E11.59 Type 2 diabetes mellitus with other circulatory complications; I25.10 Atherosclerotic heart disease of native coronary artery without angina pectoris; R63.5 Abnormal weight gain; E11.65 Type 2 diabetes mellitus with hyperglycemia; Z79.4 Long term (current) use of insulin; E78.5 Hyperlipidemia, unspecified; K59.00 Constipation, unspecified; Z86.73 Personal history of transient ischemic attack (TIA), and cerebral infarction without residual deficits | CPT/HCPCS: 83036; 84439; 84443; 99214 ==

== ENCOUNTER → 2021-04-04 08:30 | Outpatient (BNVA) | payer MEDICAID, SELFPAY | PROVIDERS: PCP Family Medicine; Visit Provider Anesthesiology | DX: M54.9 Dorsalgia, unspecified (principal); M54.6 Pain in thoracic spine; M48.02 Spinal stenosis, cervical region; M96.1 Postlaminectomy syndrome, not elsewhere classified; Z79.891 Long term (current) use of opiate analgesic | CPT/HCPCS: 99214 ==

== ENCOUNTER 2021-04-26 07:52 | Outpatient (CLI) | payer MEDICAID, SELFPAY ==
--- NOTE | 2021-04-26 08:00 | MM_ITS ---
WS: [id number] BILATERAL DIGITAL SCREENING MAMMOGRAPHY WITH CAD CLINICAL INFORMATION: Z12.31 - Encounter for screening mammogram for malignant neoplasm of breast HISTORY: Screening mammogram. No current complaints. COMPARISON: None. TECHNIQUE: Bilateral CC and MLO views. FINDINGS: Scattered fibroglandular densities bilaterally. Punctate calcifications right breast. No suspicious f ocal mass, asymmetry, calcifications, or architectural distortion. No evidence of malignancy. MM/[place] [id number] IMPRESSION: BI-RADS: 2-Benign FOLLOW UP: 1 Year Follow-up Recommend return to annual screening mammography.
== END 2021-04-26 07:53 | disposition home or self-care (01) ==
LOC: RADSHAW 07:58
PROVIDERS: PCP Family Medicine; Visit Provider Family Medicine
DX: Z12.31 Encounter for screening mammogram for malignant neoplasm of breast (principal)
CPT/HCPCS: 77067

== ENCOUNTER → 2021-05-17 11:28 | Outpatient (BNVA) | payer MEDICAID, SELFPAY | PROVIDERS: PCP Family Medicine; Visit Provider Surgery | DX: Z01.812 Encounter for preprocedural laboratory examination (principal); Z20.822 Contact with and (suspected) exposure to COVID-19 | CPT/HCPCS: 87635 ==

== ENCOUNTER 2021-05-23 08:20 | Day surgery (SDC) | payer MEDICAID, SELFPAY ==
--- NOTE | 2021-05-23 08:28 | ANES.PREANE2 ---
Pre-Anesthetic Assessment Pre-Anesthetic Assessment: Height/Weight: Height 1.7 m Weight 63.503 kg Preop Diagnosis: Nausea and vomiting Proposed Procedure: Operation Date: 05/23/21 10:00 Proposed Procedures p EGD [id number] K59.03 R11.2(Not Applicable) - Ignacio Felton MD s Colonoscopy(Not Applicable) - Ignacio Felton MD Familial anesthetic complications: None Was Beta Adrienne taken within 24 hours: N/A Was Clonidine taken within 24 hours: N/A Last intake: > 8 hrs Social: Social History: Tobacco and No alcohol Exam: Pre-Anes Outpt Exam: alert, oriented x 3, clear to auscultation bilaterally and regular rate & rhythm Airway: Cervical ROM: WNL MP: 3 Dentition: Other (multiple missing, patients states poor dentition) Pulmonary: Pulmonary: Sleep apnea CV/HEM: Comments: patient denies knowledge of CAD GI: Comments: gastritis Metabolic: Metabolic: DM Neuropsych: Neuropsych: CVA (no residual deficits (occurred 20 years ago)) Anesthetic Plan: ASA status: 3 Anesthesia: MAC Risk of > 500 ml blood loss (7ml/kg in children): No PFSH Anesthesia PFSH: Medical History Depression Diabetes Hypertension Insomnia Lumbar post-laminectomy syndrome Pyelonephritis Sepsis Spinal stenosis, cervical region Ulnar nerve impingement Surgical History H/O carpal tunnel repair H/O neck surgery H/O rotator cuff surgery H/O tubal ligation History of hysterectomy History of lumbar fusion S/P left knee arthroscopy Family History Other CAD (coronary artery disease) Cancer Stroke Denies family history of Anesthesia complication Bleeding disorder Social History Smoking and tobacco status: former smoker Second hand smoke exposure: Yes Alcohol intake: former History of recent travel: No Data Anesthesia Cardiac Studies: No Data to Display
[2021-05-23 09:03] VITALS: BP 147/88; PULSE 112; RESP 18; TEMP 36.8; O2SAT 96
[2021-05-23 09:25] LABS: Glucose Point of Care 497 mg/dL (70-110)
[2021-05-23 09:56] LABS: ABG PCO2 39.8 mmHg (35-45); ABG PH Result 7.37 (7.35-7.45); Arterial Blood Gas Hematocrit 44.5 % (37-47); Base Excess ABG -2.5 mmol/L (-2.0-2.0); Blood Gas Allen Test Pos; Blood Gas Operator Identificat glc; Blood Gas Sample Site Radial, left; Blood Gas Sample Type Arterial; HCO3 ABG 22.7 mmol/L (22-26); Oxygen Device NC; PO2 ABG 85.3 mmHg (80.0-100.0)
[2021-05-23] MEDS: insulin regular-human 10 UNIT in SYRINGE 1 EACH IVP (09:57)
[2021-05-23] MEDS: sodium chloride 0.9% 1,000 ML 30 ML IV (09:57)
[2021-05-23 10:18] LABS: Anion Gap 15.1 (5-19); Blood Urea Nitrogen 15 mg/dL (6-20); Calcium 9.1 mg/dL (8.5-10.5); Carbon Dioxide 22 mmol/L (22-29); Chloride 96 mmol/L (98-107); Glomerular Filtration Rate 58.5 mL/min (90-130); Glucose 426 mg/dL (65-115); Osmolality Calculated 287 mOsm/kg (285-295); Potassium 4.1 mmol/L (3.5-5.1); Sodium 129 mmol/L (136-145)
[2021-05-23 10:29] LABS: Glucose Point of Care 417 mg/dL (70-110)
--- NOTE | 2021-05-23 10:32 | P.HP_ITS ---
Same Day Surgery H&P Indication for Procedure/HPI DATE OF PROCEDURE: May 23, 2021 CHIEF COMPLAINT/INDICATIONFOR SURGICAL PROCEDURE: Nausea, constipation, family history of colon cancer PREOP DIAGNOSIS: panendoscopy PLANNED PROCEDRUE: Operation Date: 05/23/21 10:00 Proposed Procedures p EGD [id number] K59.03 R11.2(Not Applicable) - Ignacio Felton MD s Colonoscopy(Not Applicable) - Ignacio Felton MD Medications/Allergies* Home Medications Medication Instructions Recorded Confirmed Type multivitamin 1 cap PO DAILY@08 12/02/19 05/22/21 History oxymetazoline 0.05 % nasal spray 2 spray INTRANASAL Q12H PRN 12/02/19 05/22/21 History sennosides-docusate sodium 1 tab-cap PO DAILY@20 11/06/20 05/22/21 History [Senna-S] Allergies/Adverse Reactions Allergy/AdvReac Type Severity Reaction Status Date / Time adhesive Allergy rash Verified 04/04/21 08:45 ketorolac [From Toradol] Allergy rash Verified 04/04/21 08:45 morphine Allergy rash Verified 04/04/21 08:45 nitrofurantoin Allergy rash Verified 04/04/21 08:45 [From Macrobid] Penicillins Allergy hives Verified 04/04/21 08:45 Current Medications: Generic Name Dose Route Start Last Admin Trade Name Freq PRN Reason Stop Dose Admin Sodium Chloride 1,000 mls @ 30 mls/hr 05/23/21 08:45 05/23/21 09:57 Sodium Chloride 0.9% IV 05/24/21 08:44 30 mls/hr .Q24H SHERI Administration Pertinent History/Comorbid Conditions* Medical History (Updated 03/22/21 @ 08:43 by Ignacio Felton MD) Depression Diabetes Hypertension Insomnia Lumbar post-laminectomy syndrome Pyelonephritis Sepsis Spinal stenosis, cervical region Ulnar nerve impingement Surgical History (Updated 01/18/20 @ 08:41 by Mk Farooq MD) H/O carpal tunnel repair H/O neck surgery H/O rotator cuff surgery H/O tubal ligation History of hysterectomy History of lumbar fusion S/P left knee arthroscopy Family History (Updated 01/18/20 @ 08:35 by Oriana Cuellar LPN) CAD (coronary artery disease) Cancer Stroke Denies family history of Anesthesia complication Bleeding disorder Social History Smoking and tobacco status: former smoker Second hand smoke exposure: Yes Alcohol intake: former History of recent travel: No Pertinent Exam Findings oriented x 3 and regular rate & rhythm Recommendations Surgery/Procedure today Coding Level of Care Code 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
[2021-05-23 10:43] LABS: Lactate (Lactic Acid level) 2.2 mmol/L (0.5-2.2)
[2021-05-23 11:05] VITALS: BP 157/98; PULSE 85; RESP 16; TEMP 36.1; O2SAT 96
[2021-05-23 11:17] VITALS: BP 139/88; PULSE 83; RESP 18; O2SAT 97
--- NOTE | 2021-05-23 14:45 | ANE.PACU2 ---
Inpatient post-anesthesia follow up: Airway intact: Yes Vital signs: Temperature 97.0 F Pulse Rate 83 Respiratory Rate 18 Blood Pressure 139/88 Pulse Oximetry 97 Oxygen Delivery Me thod Room Air Oxygen Flow Rate 3 Fraction of Inspir ed Oxygen Hydration adequate: Yes Nausea and vomiting: No Pain level: 2 Mental status: Baseline
== END 2021-05-23 11:50 | disposition home or self-care (01) ==
PROVIDERS: Anesthesiology; PCP Family Medicine; Visit Provider Surgery
PROC: 0DJ08ZZ Inspection of Upper Intestinal Tract, Via Natural or Artificial Opening Endoscopic (ICD-10-PCS; CPT 43235; principal; 2021-05-23 10:00)
PROC: 0DJD8ZZ Inspection of Lower Intestinal Tract, Via Natural or Artificial Opening Endoscopic (ICD-10-PCS; CPT 45378; 2021-05-23 10:00)
DX: K59.00 Constipation, unspecified (principal); R11.0 Nausea; Z83.71 Family history of colonic polyps; F32.9 Major depressive disorder, single episode, unspecified; E11.9 Type 2 diabetes mellitus without complications; I10 Essential (primary) hypertension; Z82.49 Family history of ischemic heart disease and other diseases of the circulatory system; Z98.1 Arthrodesis status; Z82.3 Family history of stroke; Z87.891 Personal history of nicotine dependence; K29.70 Gastritis, unspecified, without bleeding; G47.30 Sleep apnea, unspecified
CPT/HCPCS: 36416; 36600; 43239; 45330; 80048; 82803; 82962; 83605; 88305; 96361; 96374; J1815; J2704; J7030

== ENCOUNTER → 2021-05-27 12:36 | Outpatient (BNVA) | payer MEDICAID, SELFPAY | PROVIDERS: PCP Family Medicine; Visit Provider Family Medicine | DX: M19.042 Primary osteoarthritis, left hand (principal); R30.0 Dysuria | CPT/HCPCS: 73130 ==

== ENCOUNTER → 2021-05-30 08:52 | Outpatient (BNVA) | payer MEDICAID, SELFPAY | PROVIDERS: PCP Family Medicine; Visit Provider Anesthesiology | DX: G89.29 Other chronic pain (principal); M54.9 Dorsalgia, unspecified; M96.1 Postlaminectomy syndrome, not elsewhere classified; M48.02 Spinal stenosis, cervical region; F17.210 Nicotine dependence, cigarettes, uncomplicated; Z79.891 Long term (current) use of opiate analgesic | CPT/HCPCS: 99214 ==

== ENCOUNTER → 2021-06-05 08:48 | Outpatient (BNVA) | payer MEDICAID, SELFPAY | PROVIDERS: PCP Family Medicine; Referring Provider Family Medicine; Visit Provider Orthopaedic Surgery | DX: M25.842 Other specified joint disorders, left hand (principal); M19.042 Primary osteoarthritis, left hand; M79.642 Pain in left hand | CPT/HCPCS: 73140 ==

== ENCOUNTER 2021-06-09 10:39 | Observation (INO) | payer MEDICAID, SELFPAY ==
[2021-06-09] VITALS (9 sets, daily range): BP systolic 130–165; BP diastolic 78–95; PULSE 75–90; RESP 13–18; TEMP 36.6–37.2; O2SAT 96–98; BMI 31.3
--- NOTE | 2021-06-09 11:07 | ECG_ITS ---
[facility] Test Date: 2021-06-09 Pat Name: Analia Hurst Department: Room: Gender: Female [place]ander: : 1970 Requested By: Ulises Rosas Order Number: [id number] Zachary MD: Grayson Cota M.D. Measurements Intervals [place] Rate: 86 P: 62 IN: 185 QRS: 69 QRSD: 85 T: 69 QT: 363 QTc: 434 Interpretive Statements SINUS RHYTHM Compared to ECG 10/11/2020 20:35:15 No significant changes Electronically Signed On 06-09-2021 17:04:30 CDT by Grayson Cota M.D. [id number] f
--- NOTE | 2021-06-09 11:07 | XRR_ITS ---
PROCEDURE INFORMATION: Exam: XR Chest Exam date and time: 06/09/2021 11:07 AM Age: 50 years old Clinical indication: Pain; Chest pressure; Additional info: Chest pain TECHNIQUE: Imaging protocol: XR of the chest. Views: 1 view. COMPARISON: CR XR chest 1V portable [id number] 11/06/2020 11:25 AM FINDINGS: Lungs: Unremarkable. No consolidation. Pleural spaces: Unremarkable. No pleural effusion. No pneumothorax. Heart/Mediastinum: Unremarkable. No cardiomegaly. Bones/joints: Sequela of ACDF within the lower cervical spine. XR/XR chest 1V portable [id number] IMPRESSION: No acute findings.
[2021-06-09 11:15] LABS: Basophils # 0.1 10^3/uL (0.0-0.1); Basophils % 0.5 %; Eosinophils # 0.1 10^3/uL (0.0-0.8); Eosinophils % 1.1 %; Hematocrit 39.5 % (37.0-47.0); Hemoglobin 12.7 g/dL (11.5-15.3); Lymphocytes # 3.4 10^3/uL (0.8-4.8); Lymphocytes % 35.3 %; Mean Corpuscular HGB Conc 32.2 g/dL (30.0-36.0); Mean Corpuscular Hemoglobin 28.2 pg (28.0-34.0); Mean Corpuscular Volume 87.8 fL (81-99); Mean Platelet Volume 11.5 fL (7.4-10.4); Monocytes # 0.6 10^3/uL (0.2-0.9); Monocytes % 5.7 %; Neutrophils # 5.37 10^3/uL (1.8-7.7); Neutrophils % 56.3 %; Nucleated Red Blood Cells % 0 %; Platelet Count 156 10^3/cmm (130-400); Red Cell Distribution Width 14.1 % (12.1-15.1); White Blood Count 9.6 10^3/uL (4.0-10.0)
[2021-06-09] MEDS: aspirin 81 mg Chew Tablet 324 MG PO (11:40)
[2021-06-09 11:44] LABS: Troponin(5th) Baseline 7 ng/L (0-10)
[2021-06-09 11:54] LABS: Alanine Aminotransferase 11 U/L (0-33); Albumin Level 3.9 g/dL (3.5-5.2); Alkaline Phosphatase 172 IU/L (35-105); Anion Gap 18.9 (5-19); Aspartate Amino Transferase 18 U/L (0-32); Blood Urea Nitrogen 10 mg/dL (6-20); Calcium 8.6 mg/dL (8.5-10.5); Carbon Dioxide 22 mmol/L (22-29); Chloride 96 mmol/L (98-107); Creatinine Clr Calc Pharmacy 85.5116; Globulin 2.9 g/dL (1.3-4.6); Glucose 346 mg/dL (65-115); NT Pro B Type Natriuretic Pept 29 pg/mL (0-125); Osmolality Calculated 289 mOsm/kg (285-295); Potassium 3.9 mmol/L (3.5-5.1); Sodium 133 mmol/L (136-145); Total Bilirubin 0.2 mg/dL (0.15-1.2); Total Protein 6.8 g/dL (6.6-8.7)
--- NOTE | 2021-06-09 12:09 | ED_ITS ---
HPI - Chest Pain General: Chief Complaint: Chest Pain Stated Complaint: CP Time Seen by Provider: 06/09/21 10:56 Source: patient and family History of Present Illness: HPI narrative: Patient states that she is left- sided chest pain that radiates down the left arm since about 6 AM this morning. Took 2 nitro at home that did not help much. Does not have any aspirin. States she has a history of a previous VT. Does not follow-up with cardiology. Does smoke 1 pack of cigarettes a day. States she is a diabetic. MD complaint: chest pain Pain location: left chest Pain radiation: left arm Associated symptoms: Deny abdominal pain, dyspnea or fever(s) Risk Factors: Coronary artery disease risk factors: diabetes and smoking history Review of Systems Const: Denies: fever(s) or chills Eyes: Denies: change in vision ENMT: Denies: throat pain Card: Reports: chest pain Resp: Denies: dyspnea GI: Denies: abdominal pain : Denies: flank pain Musc: Denies: neck pain Skin/Breast: Denies: rash Neuro: Denies: headache(s) Psych: Denies: anxiety PFSH ED PFSH: Medical History Arthritis of hand, left Depression Diabetes Hypertension Insomnia Lumbar post-laminectomy syndrome Pyelonephritis Sepsis Spinal stenosis, cervical region Ulnar nerve impingement Surgical History H/O carpal tunnel repair H/O esophagogastroduodenoscopy (05/23/21) H/O flexible sigmoidoscopy (05/23/21) H/O neck surgery H/O rotator cuff surgery H/O tubal ligation History of hysterectomy History of lumbar fusion S/P left knee arthroscopy Status post laparoscopic cholecystectomy Family History Other CAD (coronary artery disease) Cancer Stroke Denies family history of Anesthesia complication Bleeding disorder Social History Second hand smoke exposure: Yes Alcohol intake: former History of recent travel: No Physical Exam Const: COMMON NORMALS: no acute distress, average body habitus, patient oriented x3, no limitations, healthy appearing, alert and well nourished HENMT: COMMON NORMALS: normocephalic, atraumatic, hearing grossly normal bilaterally, external ears normal, EAC's normal, TM's normal bilaterally, Normal external nose present, Normal nasal mucous membranes and turbinates present, moist oral mucous membranes, oropharynx normal, dentition normal and gingiva normal HEAD & SCALP: normocephalic and atraumatic NOSE: Normal external nose present and Normal nasal mucous membranes and turbinates present EXTERNAL EAR: Yes external ears normal EXTERNAL AUDITORY CANAL: EAC's normal TYMPANIC MEMBRANE: TM's normal bilaterally Eye: COMMON NORMALS: Equal, round and reactive pupils present, EOMs intact bilaterally, conjunctivae normal, no scleral icterus, no papilledema, normal visual villalobos by confrontation and fundi normal bilaterally CONJUNCTIVA: Yes conjunctivae normal PUPIL: Yes Equal, round and reactive pupils present DIRECT OPHTHALMOSCOPY: Yes no papilledema and Yes fundi normal bilaterally Neck/C-Spine: COMMON NORMALS: full ROM, no lymphadenopathy, supple, no meningeal signs, no JVD, Thyroid normal and No carotid bruits THYROID: Thyroid normal Lymph: LYMPHATIC: no lymphadenopathy noted Resp: COMMON NORMALS: normal respiratory effort, No retractions, No use of accessory muscles, clear to auscultation bilaterally and percussion normal AUSCULTATION: clear to auscultation bilaterally PERCUSSION: percussion normal Cardio: COMMON NORMALS: no JVD, regular rate, regular rhythm, S1 normal heart sound present, S2 normal heart sound present, No gallops present (Cardio), No clicks present (Cardio), No murmurs present (Cardio), No rub (Cardio) and Peripheral pulses 2+ throughout RATE: regular rate RHYTHM: regular rhythm HEART SOUNDS: S1 normal heart sound present and S2 normal heart sound present PERIPHERAL PULSES: Peripheral pulses 2+ throughout GI: COMMON NORMALS: Normal to inspection, nondistended, normoactive bowel sounds present, Soft to palpation, non-tender, No hepatosplenomegaly present, no masses and no bruits PALPATION: Yes Soft to palpation and Yes No hepatosplenomegaly present Neuro: COMMON NORMALS: patient oriented x3 SENSORIUM/ORIENTATION: Yes alert MENINGEAL SIGNS: Yes no meningeal signs Course Vital Signs: Vital signs: Vital Signs Temperature 98.1 F 06/09/21 10:49 Pulse Rate 80 06/09/21 13:36 Respiratory Rate 18 06/09/21 13:36 Blood Pressure 130/78 06/09/21 13:36 Pulse Oximetry 98 06/09/21 13:36 MDM - Chest Pain MDM Narrative: Medical decision making narrative: No significant abnormality noted on initial labs. Patient did have a positive D-dimer but CTA was negative. Initial troponin was negative. Patient does have a heart score of 5. States she did have a previous VT, is obese, smokes, is a poorly controlled diabetic, and likely need further cardiac evaluation. EKG shows nonspecific ST and T wave changes with a ventricular rate of 77. Chest x-ray normal. Discussed with Dr. Martinez for admission Lab Data: Labs: Lab Results 06/09/21 06/09/21 06/09/21 Range/Units 11:00 11:00 11:00 WBC 9.6 (4.0-10.0) 10^3/ uL RBC 4.50 (4.1-5.3) 10^6/u L Hgb 12.7 (11.5-15.3) g/dL Hct 39.5 (37.0-47.0) % MCV 87.8 (81-99) fL MCH 28.2 (28.0-34.0) pg MCHC 32.2 (30.0-36.0) g/dL RDW 14.1 (12.1-15.1) % Plt Count 156 (130-400) 10^3/c mm MPV 11.5 H (7.4-10.4) fL Neut % (Auto) 56.3 % Lymph % (Auto) 35.3 % [place] % (Auto) 5.7 % Eos % (Auto) 1.1 % Baso % (Auto) 0.5 % Neut # (Auto) 5.37 (1.8-7.7) 10^3/u L Lymph # (Auto) 3.4 (0.8-4.8) 10^3/u L [place] # (Auto) 0.6 (0.2-0.9) 10^3/u L Eos # (Auto) 0.1 (0.0-0.8) 10^3/u L Baso # (Auto) 0.1 (0.0-0.1) 10^3/u L Nucleated RBC % (a uto) 0 % Nucleated RBCs # 0.0 /100WBC D-Dimer (0-0.59) ug/mIFE U Sodium 133 L (136-145) mmol/L Potassium 3.9 (3.5-5.1) mmol/L Chloride 96 L (98-107) mmol/L Carbon Dioxide 22 (22-29) mmol/L Anion Gap 18.9 (5-19) BUN 10 (6-20) mg/dL Creatinine 0.9 (0.5-0.9) mg/dL GFR Calculation 66.0 L (90-130) mL/min Glucose 346 H (65-115) mg/dL Calculated Osmolal ity 289 (285-295) mOsm/k g Calcium 8.6 (8.5-10.5) mg/dL Total Bilirubin 0.2 (0.15-1.2) mg/dL AST 18 (0-32) U/L ALT 11 (0-33) U/L Alkaline Phosphata se 172 H (35-105) IU/L Troponin T Baselin e 7 (0-10) ng/L Troponin T 120 Min [place] (0-10) ng/L NT-Pro-B Natriuret Pep 29 (0-125) pg/mL Total Protein 6.8 (6.6-8.7) g/dL Albumin 3.9 (3.5-5.2) g/dL Globulin 2.9 (1.3-4.6) g/dL HCG, Qual (Negative) Urine Color (Yellow) Urine Appearance (CLEAR) Urine pH (5-7) Ur Specific Gravit y (1.005-1.030) Urine Protein (Negative) Urine Glucose (UA) (Normal) Urine Ketones (Negative) Urine Blood (Negative) Urine Nitrate (Negative) Urine Bilirubin (Negative) Urine Urobilinogen (Negative) mg/dL Ur Leukocyte Fartun ase (Negative) SARS-CoV-2 Ag (Rap id) (Negative) 06/09/21 06/09/21 06/09/21 Range/Units 11:00 12:20 13:00 WBC (4.0-10.0) 10^3/ uL RBC (4.1-5.3) 10^6/u L Hgb (11.5-15.3) g/dL Hct (37.0-47.0) % MCV (81-99) fL MCH (28.0-34.0) pg MCHC (30.0-36.0) g/dL RDW (12.1-15.1) % Plt Count (130-400) 10^3/c mm MPV (7.4-10.4) fL Neut % (Auto) % Lymph % (Auto) % [place] % (Auto) % Eos % (Auto) % Baso % (Auto) % Neut # (Auto) (1.8-7.7) 10^3/u L Lymph # (Auto) (0.8-4.8) 10^3/u L [place] # (Auto) (0.2-0.9) 10^3/u L Eos # (Auto) (0.0-0.8) 10^3/u L Baso # (Auto) (0.0-0.1) 10^3/u L Nucleated RBC % (a uto) % Nucleated RBCs # /100WBC D-Dimer 0.94 H (0-0.59) ug/mIFE U Sodium (136-145) mmol/L Potassium (3.5-5.1) mmol/L Chloride (98-107) mmol/L Carbon Dioxide (22-29) mmol/L Anion Gap (5-19) BUN (6-20) mg/dL Creatinine (0.5-0.9) mg/dL GFR Calculation (90-130) mL/min Glucose (65-115) mg/dL Calculated Osmolal ity (285-295) mOsm/k g Calcium (8.5-10.5) mg/dL Total Bilirubin (0.15-1.2) mg/dL AST (0-32) U/L ALT (0-33) U/L Alkaline Phosphata se (35-105) IU/L Troponin T Baselin e (0-10) ng/L Troponin T 120 Min [place] (0-10) ng/L NT-Pro-B Natriuret Pep (0-125) pg/mL Total Protein (6.6-8.7) g/dL Albumin (3.5-5.2) g/dL Globulin (1.3-4.6) g/dL HCG, Qual Negative (Negative) Urine Color (Yellow) Urine Appearance (CLEAR) Urine pH (5-7) Ur Specific Gravit y (1.005-1.030) Urine Protein (Negative) Urine Glucose (UA) (Normal) Urine Ketones (Negative) Urine Blood (Negative) Urine Nitrate (Negative) Urine Bilirubin (Negative) Urine Urobilinogen (Negative) mg/dL Ur Leukocyte Fartun ase (Negative) SARS-CoV-2 Ag (Rap id) Negative (Negative) 06/09/21 06/09/21 Range/Units 13:00 13:15 WBC (4.0-10.0) 10^3/ uL RBC (4.1-5.3) 10^6/u L Hgb (11.5-15.3) g/dL Hct (37.0-47.0) % MCV (81-99) fL MCH (28.0-34.0) pg MCHC (30.0-36.0) g/dL RDW (12.1-15.1) % Plt Count (130-400) 10^3/c mm MPV (7.4-10.4) fL Neut % (Auto) % Lymph % (Auto) % [place] % (Auto) % Eos % (Auto) % Baso % (Auto) % Neut # (Auto) (1.8-7.7) 10^3/u L Lymph # (Auto) (0.8-4.8) 10^3/u L [place] # (Auto) (0.2-0.9) 10^3/u L Eos # (Auto) (0.0-0.8) 10^3/u L Baso # (Auto) (0.0-0.1) 10^3/u L Nucleated RBC % (a uto) % Nucleated RBCs # /100WBC D-Dimer (0-0.59) ug/mIFE U Sodium (136-145) mmol/L Potassium (3.5-5.1) mmol/L Chloride (98-107) mmol/L Carbon Dioxide (22-29) mmol/L Anion Gap (5-19) BUN (6-20) mg/dL Creatinine (0.5-0.9) mg/dL GFR Calculation (90-130) mL/min Glucose (65-115) mg/dL Calculated Osmolal ity (285-295) mOsm/k g Calcium (8.5-10.5) mg/dL Total Bilirubin (0.15-1.2) mg/dL AST (0-32) U/L ALT (0-33) U/L Alkaline Phosphata se (35-105) IU/L Troponin T Baselin e (0-10) ng/L Troponin T 120 Min [place] 6.70 (0-10) ng/L NT-Pro-B Natriuret Pep (0-125) pg/mL Total Protein (6.6-8.7) g/dL Albumin (3.5-5.2) g/dL Globulin (1.3-4.6) g/dL HCG, Qual (Negative) Urine Color Yellow (Yellow) Urine Appearance Clear (CLEAR) Urine pH 5 (5-7) Ur Specific Gravit y 1.020 (1.005-1.030) Urine Protein Neg (Negative) Urine Glucose (UA) 4+ H (Normal) Urine Ketones Negative (Negative) Urine Blood Neg (Negative) Urine Nitrate Negative (Negative) Urine Bilirubin Neg (Negative) Urine Urobilinogen Norm (Negative) mg/dL Ur Leukocyte Fartun ase Negative (Negative) SARS-CoV-2 Ag (Rap id) (Negative) Discharge Plan Discharge Prescriptions: No Action oxycodone 30 mg tablet 30 mg PO TID PRN (Reason: pain) 30 Days Qty: 60 RF: 0 oxycodone 30 mg tablet 30 mg PO TID PRN (Reason: pain) 30 Days Qty: 30 RF: 0 oxycodone 30 mg tablet 30 mg PO TID PRN (Reason: pain) 30 Days Qty: 60 RF: 0 oxycodone 30 mg tablet 30 mg PO TID PRN (Reason: pain) 30 Days Qty: 30 RF: 0 tramadol 50 mg tablet 100 mg PO TID PRN (Reason: Pain) 30 Days Qty: 180 RF: 1 tizanidine 4 mg tablet 4 mg PO TID PRN (Reason: muscle spasticity) 30 Days Qty: 90 RF: 1 oxymetazoline [Afrin (oxymetazoline)] 0.05 % spray,non-aerosol 2 spray INTRANASAL PRN PRN (Reason: Nasal Congestion) RF: 0 Humulin R U-500 (Conc) Kwikpen 500 unit/mL (3 mL) insulin pen See Rx Instructions SUBCUT QAM Qty: 20 RF: 3 (DME) pen needle, diabetic [BD Ultra-Fine Mini Pen Needle] 31 gauge x 3/16 needle See Rx Instructions .ROUTE .MEDSUPPLY Qty: 50 RF: 3 hydrocortisone [Procto-Med HC] 2.5 % cream with perineal applicator 1 applic OH DAILY PRN (Reason: pain) 30 Days Qty: 30 RF: 5 citalopram [Celexa] 40 mg tablet 40 mg PO DAILY@20 Qty: 30 RF: 3 ondansetron HCl 4 mg tablet 4 mg PO Q6H PRN (Reason: Nausea) Qty: 30 RF: 2 prazosin 1 mg capsule 1 mg PO DAILY@20 Qty: 30 RF: 3 ropinirole 2 mg tablet 2 mg PO DAILY@20 Qty: 30 RF: 3 nitroglycerin [Nitrostat] 0.4 mg tablet, sublingual 0.4 mg SUBLINGUAL Q5M PRN (Reason: Chest Pain) Qty: 25 RF: 3 sumatriptan succinate [Imitrex] 100 mg tablet 100 mg PO PRN PRN (Reason: Migraine Headache) 30 Days Qty: 14 RF: 2 fluconazole [Diflucan] 150 mg tablet 150 mg PO Q3D 15 Days Qty: 5 RF: 1 metronidazole 500 mg tablet 500 mg PO TID 14 Days Qty: 42 RF: 0 clarithromycin 500 mg tablet 500 mg PO BID 14 Days Qty: 28 RF: 0 multivitamin Tablet 1 tab PO DAILY@08 RF: 0 Bactrim DS 800-160 mg tablet 1 tab PO BID RF: 0 promethazine 25 mg tablet 12.5 mg PO BEDTIME RF: 0 zolpidem 10 mg tablet 5 mg PO BEDTIME PRN (Reason: insomnia) RF: 0 ProAir HFA 90 mcg/actuation HFA aerosol inhaler 2 puff inhalation QID PRN (Reason: Shortness Of Breath) RF: 0 doxycycline hyclate 100 mg tablet See Rx Instructions .ROUTE .COMPLEX RF: 0 Lyrica 300 mg capsule 300 mg PO BID@08,20 RF: 0 Protonix [address] for susp in packet 40 mg PO BID@08,20 RF: 0 lactulose 20 gram/30 mL solution 20 g PO BEDTIME PRN (Reason: Constipation) RF: 0 Coding Level of Care Code ED Rural Route Carrier for Chg Fwd Exam Comprehensive
[2021-06-09 12:40] LABS: D Dimer 0.94 ug/mIFEU (0-0.59)
--- NOTE | 2021-06-09 12:52 | CTR_ITS ---
PROCEDURE INFORMATION: Exam: CTA Chest With Contrast Exam date and time: 06/09/2021 12:52 PM Age: 50 years old Clinical indication: Pain; Left-sided; Prior surgery; Surgery date: 6+ months; Surgery type: Neck, shoulder, gb; Patient HX: L sided cp w elev d-dimer; Additional info: Elevated d dimer TECHNIQUE: Imaging protocol: Computed tomographic angiography of the chest with contrast. 3D rendering (Not supervised by radiologist): MIP and/or 3D reconstructed images were created by the technologist. Radiation optimization: All CT scans at this facility use at least one of these dose optimization techniques: automated exposure control; mA and/or kV adjustment per patient size (includes targeted exams where dose is matched to clinical indication); or iterative reconstruction. Contrast material: OMNI 350; Contrast volume: 82 ml; Contrast route: INTRAVENOUS (IV); COMPARISON: CT angio chest PE protcl [id number] 10/11/2020 6:39 PM RADIATION DOSE METRICS: Total DLP (mGy-cm): 582.44 FINDINGS: Pulmonary arteries: Normal. No pulmonary emboli. Aorta: Unremarkable. No aortic aneurysm. No aortic dissection. Lungs: Unremarkable. No consolidation. No masses. Pleural spaces: Unremarkable. No pneumothorax. No pleural effusion. Heart: Unremarkable. No cardiomegaly. No pericardial effusion. Lymph nodes: Unremarkable. No enlarged lymph nodes. Adrenal glands: 3 cm right adrenal nodule, incompletely characterized on examination, most likely and adenoma not significantly changed from prior imaging. Bones/joints: No acute fracture. Sequela of ACDF in the lower cervical spine. Soft tissues: Unremarkable. CT/CT angio chest PE protcl [id number] IMPRESSION: 1. Negative for pulmonary embolism. No acute intrathoracic process. 2. 3 cm right adrenal nodule, not significantly changed from prior examination, most likely an adenoma. Radiation Dose CTDIVOL = (mGy): DLP = 582.44 (mGy-cm)
[2021-06-09 12:58] LABS: SARS Covid-2 Antigen Negative (Negative)
--- NOTE | 2021-06-09 13:03 | PC.PHAR ---
PT STATES SHE TAKES CARE OF HER OWN MEDICATIONS-PT STATES SHE TAKES THE MEDICATIONS ENTERED-PTS PHARMACY ISNT OPEN ON THURSDAY TO VERIFY MEDICATIONS
--- NOTE | 2021-06-09 13:07 | ECG_ITS ---
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 Measurements Intervals [place] Rate: 77 P: 145 GA: 184 QRS: 145 QRSD: 92 T: 151 QT: 376 QTc: 427 Interpretive Statements SINUS RHYTHM ARM LEADS REVERSED [INVERTED P AND QRS IN I] ATYPICAL ECG Compared to ECG 06/09/2021 11:10:23 No significant changes Electronically Signed On 06-09-2021 17:18:51 CDT by Grayson Cota M.D. [id number]
[2021-06-09] MEDS: iohexol 350 mg/mL 100 mL Btl IV (13:27)
[2021-06-09 13:28] LABS: HCG Qualitative Urine. Negative (Negative)
[2021-06-09] MEDS: HYDROmorphone 1 mg/mL INJ 1 mL 0.5 MG IVP (13:32)
[2021-06-09 13:53] LABS: Add Urine Microscopic? NO; Charge for UA Resulting for Rev
[2021-06-09 13:55] LABS: Urine Appearance Clear (CLEAR); Urine Color Yellow (Yellow); pH Urine 5 (5-7)
[2021-06-09 13:56] LABS: Bilirubin Urine Neg (Negative); Blood Urine Neg (Negative); Glucose Urine UA 4+ (Normal); Ketones Urine Negative (Negative); Leukocyte Esterase Urine Negative (Negative); Nitrate Urine Negative (Negative); Protein Urine Neg (Negative); Urobilinogen Urine Norm (Negative)
--- NOTE | 2021-06-09 14:03 | P.HP_ITS ---
Providers/Chief Complaint Primary Care Provider: Yesica Bailey MD Chief Complaint: CP History of Present Illness 50-year-old female with a past medical history significant for anxiety, depression, chronic pain on opioids, hypertension, diabetes mellitus, migraines,Tobacco abuse, chronic obstructive pulmonary disease presented to the hospital with left-sided chest pain. Patient stated this radiated to the left upper extremity and left side of neck.Denies any prior history of cardiac disease. Stated she did have a stress test however this was long time ago.No prior catheterizations. Workup in emergency room showed WBC of 9.6, hemoglobin of 12.7, hematocrit 39.5 and a platelet count of 156. D-dimer of 0.94. Sodium 133, potassium 3.9, chloride 96, bicarb 22, BUN 10 and creatinine of 0.9. Glucose was elevated at 383. AST of 18, ALT of 11 alkaline phosphatase of 172. Troponin trend was negative. ProBNP of 29. Beta hCG was negative. Urinalysis was negative as well. EKG did not show any evidence of acute ischemia. Imaging studies included chest x-ray which did not show any evidence of acute abnormality.CTA chest was negative for pulmonary embolism.In emergency room patient was given aspirin 324 mg oral x1, nitro 1in paste and multiple doses of Dilaudid. In review of records patient with recently seen by general surgery for workup of abdominal pain.This included an EGD with her shown gastritis with [facility] revealed H pylori positive findings. She was started on dual antibiotic therapy plus PPI with further plan for gastric emptying study. Colonoscopy was also attempted however this was incomplete due to poor prep. Mild diverticulosis and internal hemorrhoids were noted. Review of Systems General: Reports: 10 or more systems reviewed and unremarkable except in HPI and below Medications/Allergies Home Medications Medication Instructions Recorded Confirmed Last Taken Type oxymetazoline 0.05 % nasal spray 2 spray INTRANASAL PRN PRN 12/02/19 06/09/21 Unknown History insulin regular hum U-500 conc See Rx Instructions SUBCUT QAM #20 12/10/20 06/09/21 06/08/21 23:00 Rx ml pen needle, diabetic 31 gauge x #50 ea 12/10/20 06/09/21 Unknown Rx 3/16 hydrocortisone 2.5 % topical cream 1 applic MT DAILY PRN 30 Days #30 g 12/21/20 06/09/21 Unknown Rx with perineal applicator citalopram 40 mg tablet 40 mg PO DAILY@20 #30 tab 04/08/21 06/09/21 06/08/21 Rx ondansetron HCl 4 mg tablet 4 mg PO Q6H PRN #30 tab 04/08/21 06/09/21 Unknown Rx prazosin 1 mg capsule 1 mg PO DAILY@20 #30 cap 04/08/21 06/09/21 06/08/21 Rx ropinirole 2 mg tablet 2 mg PO DAILY@20 #30 tab 04/08/21 06/09/21 06/08/21 Rx nitroglycerin 0.4 mg sublingual 0.4 mg SUBLINGUAL Q5M PRN #25 tab 05/09/21 06/09/21 06/09/21 10:00 Rx tablet sumatriptan succinate 100 mg tablet 100 mg PO PRN PRN 30 Days #14 tab 05/10/21 06/09/21 Unknown Rx fluconazole 150 mg tablet 150 mg PO Q3D 15 Days #5 tab 05/27/21 06/09/21 06/08/21 Rx oxycodone 30 mg tablet 30 mg PO TID PRN 30 Days #30 tab 05/30/21 06/09/21 Unknown Rx oxycodone 30 mg tablet 30 mg PO TID PRN 30 Days #30 tab 05/30/21 06/09/21 Unknown Rx oxycodone 30 mg tablet 30 mg PO TID PRN 30 Days #60 tab 05/30/21 06/09/21 Unknown Rx oxycodone 30 mg tablet 30 mg PO TID PRN 30 Days #60 tab 05/30/21 06/09/21 06/08/21 20:00 Rx tizanidine 4 mg tablet 4 mg PO TID PRN 30 Days #90 tab 05/30/21 06/09/21 06/08/21 Rx tramadol 50 mg tablet 100 mg PO TID PRN 30 Days #180 tab 05/30/21 06/09/21 06/08/21 Rx clarithromycin 500 mg tablet 500 mg PO BID 14 Days #28 tab 06/05/21 06/09/21 06/08/21 Rx metronidazole 500 mg tablet 500 mg PO TID 14 Days #42 tab 06/05/21 06/09/21 06/08/21 Rx Bactrim DS 1 tab PO BID 06/09/21 06/09/21 Unknown History ProAir HFA 2 puff INHALATION QID PRN 06/09/21 06/09/21 Unknown History doxycycline hyclate See Rx Instructions .ROUTE .COMPLEX 06/09/21 06/09/21 06/08/21 History lactulose 20 g PO BEDTIME PRN 06/09/21 06/09/21 Unknown History multivitamin 1 tab PO DAILY@08 06/09/21 06/09/21 06/08/21 History pantoprazole [Protonix] 40 mg PO BID@06/09/21 06/09/21 06/08/21 History pregabalin [Lyrica] 300 mg PO BID@06/09/21 06/09/21 06/08/21 History promethazine 12.5 mg PO BEDTIME 06/09/21 06/09/21 06/08/21 History zolpidem 5 mg PO BEDTIME PRN 06/09/21 06/09/21 Unknown History Allergies Allergy/AdvReac Type Severity Reaction Status Date / Time adhesive Allergy rash Verified 06/09/21 13:02 ketorolac [From Toradol] Allergy rash Verified 06/09/21 13:02 morphine Allergy rash Verified 06/09/21 13:02 nitrofurantoin Allergy rash Verified 06/09/21 13:02 [From Macrobid] Penicillins Allergy hives Verified 06/09/21 13:02 PFSH Acute PFSH: Medical History Arthritis of hand, left Depression Diabetes Hypertension Insomnia Lumbar post-laminectomy syndrome Pyelonephritis Sepsis Spinal stenosis, cervical region Ulnar nerve impingement Surgical History H/O carpal tunnel repair H/O esophagogastroduodenoscopy (05/23/21) H/O flexible sigmoidoscopy (05/23/21) H/O neck surgery H/O rotator cuff surgery H/O tubal ligation History of hysterectomy History of lumbar fusion S/P left knee arthroscopy Status post laparoscopic cholecystectomy Family History Other CAD (coronary artery disease) Cancer Stroke Denies family history of Anesthesia complication Bleeding disorder Social History Second hand smoke exposure: Yes Alcohol intake: former History of recent travel: No Vitals/I&O/Wt Last Vital Signs Temp 98.1 F 06/09/21 10:49 Pulse 80 06/09/21 13:36 Resp 18 06/09/21 13:36 BP 130/78 06/09/21 13:36 Pulse Ox 98 06/09/21 13:36 Weight last 48 hrs Weight 90.718 kg Data : 06/09/21 11:00 06/09/21 11:00 A&P Assessment and plan (1) Chest pain: Status: Acute Qualifiers: Chest pain type: other chest pain Qualified Code(s): R07.89 - Other chest pain (2) Diabetes: Status: Acute Qualifiers: Diabetes mellitus type: type 2 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 Diabetes mellitus complication status: with hyperglycemia Qualified Code(s): E11.65 - Type 2 diabetes mellitus with hyperglycemia; 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 (3) Helicobacter positive gastritis: Status: Acute Chest pain HEART Score 5 ( High suspicion, normal EKG, > 3 Risk factors Ruled out for ACS - Troponin Trend negative Aspirin 324 mg PO x 1 in ER - continue 81 mg PO daily Check lipid panel in am ECHO / Nuclear stress test ordered for am NPO at midnight Nitro ordered in ER If stress positive consult cardiology D-dimer elevated CTA Chest - neg for acute PE H-pylori Infection / Gastritis Noted on 05/23/21 Continue dual abx therapy / PPI Clarithromycin 500 mg PO BID Flagyl 500 mg PO TID Verify end date Diabetes Mellitus Sliding scale insulin Add Lantus 10 units qhs Resume short acting once resumed on diet A1c in am Neuropathy / RLS Lyrica resumed Requip 2 mg PO qhs Chronic Obstructive Pulmonary Disease Not in exacerbation Duoneb Q6hr PRN Supplemental o2 as needed Chronic Pain/opiod use Oxycodone at home dose Following pain management outpatient Limit additional narcotic use DVT ppx Heparin 5000 units Q8h Attestations Medical Necessity Statement*: Anticipate less than 2 midnight stay in hospital for evaluation and treatment of chest pain requiring cardiac workup Time Spent in Patient Care: Greater than 35 minutes (>than 50% of time spent in counselling and/or direct pt care on unit) . 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
--- NOTE | 2021-06-09 14:05 | USCV_ITS ---
Analia Hurst Age: 50 Gender: F : 1970 Exam Date: 06/09/2021 16:31 Ordering Phys: Heidi Martinez MD Technologist: Sondra Mayorga Exam Location: [facility] Indication: Atypical chest pain BP: 130 / 78 HR: 75 Rhythm: Sinus Technical Quality: Fair MEASUREMENTS (Male / Female) Normal Values 2D ECHO LV Diastolic Diameter PLAX 4.6 cm 4.2 - 5.9 / 3.9 - 5.3 cm LV Systolic Diameter PLAX 3.1 cm LV Chamber Size 4.2 cm IVS Diastolic Thickness 1.4 cm 0.6 - 1.0 / 0.6 - 0.9 cm IVS Systolic Thickness 1.8 cm LVPW Diastolic Thickness 1.2 cm 0.6 - 1.0 / 0.6 - 0.9 cm LVPW Systolic Thickness 1.5 cm RV Chamber Size 2.4 cm LVOT Diameter 2.0 cm LV Ejection Fraction 2D Teich 61.5 % LV Ejection Fraction MOD 2C 65.0 % LV Ejection Fraction 2C AL 65.0 % LA Diameter 2.3 cm LA Width 2.6 cm LA Height 4.9 cm RA Width 2.3 cm RA Height 3.6 cm Aorta at Sinotubular Diameter 2.5 cm M-MODE LV Diastolic Diameter MM 5.4 cm 4.2 - 5.9 / 3.9 - 5.3 cm LV Systolic Diameter MM 3.3 cm LV Ejection Fraction MM Teich 68.3 % IVS Diastolic Thickness MM 1.1 cm 0.6 - 1.0 / 0.6 - 0.9 cm IVS Systolic Thickness MM 1.7 cm LVPW Diastolic Thickness MM 1.3 cm 0.6 - 1.0 / 0.6 - 0.9 cm LVPW Systolic Thickness MM 1.7 cm RV Diastolic Diameter MM 0.8 cm Aortic Annulus Diameter 3.4 cm LA Ao Ratio MM 0.7 MV E Point Septal Separation 0.3 cm DOPPLER AV Peak Velocity 127.0 cm/s LVOT Peak Velocity 111.0 cm/s AV Area Cont Eq vti 2.6 cm squared AV Area Cont Eq pk 2.8 cm squared MV Area PHT 5.0 cm squared Mitral E to A Ratio 1.0 MV E' Velocity 50.5 cm/s Mitral E to MV E' Ratio 11.5 Mitral E to LV E' Lateral Ratio 12.1 Mitral E to LV E' Septal Ratio 11.1 TV Peak E Velocity 70.0 cm/s Right Atrial Pressure 8.0 mmHg PV Peak Velocity 83.0 cm/s RV Acceleration Time 0.1 s RV Ejection Time 0.3 s RV AcT/ET 0.3 FINDINGS Left Ventricle Normal left ventricular size. LV systolic function is normal with EF of 55-60%. No regional wall motion abnormalities. Diastolic function is normal Right Ventricle The right ventricle is normal in size and function. Right Atrium The right atrium is normal in size. Left Atrium The left atrium is normal in size. Mitral Valve Structurally normal mitral valve without significant stenosis or prolapse. There is no mitral regurgitation. Aortic Valve Structurally normal aortic valve without significant sclerosis or stenosis. There is no aortic regurgitation. Tricuspid Valve Structurally normal tricuspid valve without significant stenosis or regurgitation. Insufficient TR jet to calculate RVSP Pulmonic Valve Structurally normal pulmonic valve without significant stenosis. There is no pulmonic regurgitation. Pericardium Normal pericardium without effusion. Aorta Normal ascending aorta dimension. CONCLUSIONS LV systolic function is normal with EF of 55-60% Diastolic function is normal No significant valvular heart disease No comparison studies are available Grayson Cota MD (Electronically Signed) Final Date: 09 June 2021 17:41 S
--- NOTE | 2021-06-09 14:08 | ECG_ITS ---
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 Interpretive Statements NAME OF STUDY: LEXISCAN SESTAMIBI STRESS TEST INDICATION: Chest Pain PROCEDURE: At the baseline, the blood pressure was 144/79 mmHg with a heart rate of 78 bpm and oxygen saturation 94%. The electrocardiogram showed normal sinus rhythm, rightward axis. Nonspecific ST-T wave changes. The Lexiscan was infused over a period of 20 seconds. A total of 0.4 milligrams of Lexiscan was infused. The stress phase was continued for a total of 5 minutes. Heart rate at the end of the stress phase was 87 bpm, oxygen saturation 94% with a blood pressure of 170/82 mmHg. The EKG at the peak infusion revealed no significant ST-T wave changes. Sestamibi was injected 20 seconds after the Lexiscan infusion. Blood pressure at the end of the recovery phase was 156/77 mmHg, oxygen saturation 94% with a heart rate of 86 beats per minute. CONCLUSION: 1. No significant EKG changes with the LexiScan infusion 2. No LexiScan induced chest pain or cardiac arrhythmia. 3. Normal blood pressure and heart rate response. 4. Sestamibi/sestamibi perfusion scan pending; see separate report. Electronically Signed On 06-10-2021 16:43:02 CDT by Dora Banda M.D. [id number]
[2021-06-09 15:19] LABS: Glucose Point of Care 126 mg/dL (70-110)
--- NOTE | 2021-06-09 15:42 | PC.NURSE ---
Refuses SCD at this time, would like to try them at bedtime.
[2021-06-09] MEDS: enoxaparin 40 mg/0.4 mL Syringe SUBCUT (16:29)
--- NOTE | 2021-06-09 17:07 | ECG_ITS ---
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 Measurements Intervals [place] Rate: 77 P: 66 AL: 186 QRS: 75 QRSD: 100 T: 88 QT: 379 QTc: 430 Interpretive Statements SINUS RHYTHM Compared to ECG 06/09/2021 13:16:27 No significant changes Electronically Signed On 06-09-2021 17:18:05 CDT by Grayson Cota M.D. [id number]
[2021-06-09 17:49] LABS: Troponin 5 6HR 8.42 ng/L (0-10); Troponin 5 6HR Delta 1.42 ng/L (0-12)
[2021-06-09 17:50] LABS: Glucose Point of Care 210 mg/dL (70-110)
[2021-06-09] MEDS: oxyCODONE IR 30 mg Tablet PO (20:39)
[2021-06-09] MEDS: prazosin 1 mg Capsule PO (20:40)
[2021-06-09] MEDS: ropinirole 2 mg Tablet PO (20:40)
[2021-06-09 21:22] LABS: Glucose Point of Care 383 mg/dL (70-110)
[2021-06-09] MEDS: insulin glargine 100 units/1 mL 10 UNIT SUBCUT (22:59)
[2021-06-10] VITALS (7 sets, daily range): BP systolic 102–156; BP diastolic 66–82; PULSE 70–87; RESP 15–16; TEMP 36.4–36.7; O2SAT 96–97
[2021-06-10 04:58] LABS: Basophils % 0.5 %; Eosinophils # 0.1 10^3/uL (0.0-0.8); Eosinophils % 1.9 %; Hematocrit 39.9 % (37.0-47.0); Hemoglobin 12.6 g/dL (11.5-15.3); Lymphocytes # 3.2 10^3/uL (0.8-4.8); Lymphocytes % 43.3 %; Mean Corpuscular HGB Conc 31.6 g/dL (30.0-36.0); Mean Corpuscular Hemoglobin 28.1 pg (28.0-34.0); Mean Corpuscular Volume 88.9 fL (81-99); Mean Platelet Volume 11.6 fL (7.4-10.4); Monocytes # 0.6 10^3/uL (0.2-0.9); Monocytes % 8.1 %; Neutrophils # 3.36 10^3/uL (1.8-7.7); Neutrophils % 45.1 %; Nucleated Red Blood Cells % 0 %; Platelet Count 143 10^3/cmm (130-400); Red Blood Count 4.49 10^6/uL (4.1-5.3); Red Cell Distribution Width 14.2 % (12.1-15.1); White Blood Count 7.4 10^3/uL (4.0-10.0)
[2021-06-10 05:31] LABS: Alanine Aminotransferase 9 U/L (0-33); Albumin Level 3.2 g/dL (3.5-5.2); Alkaline Phosphatase 168 IU/L (35-105); Blood Urea Nitrogen 14 mg/dL (6-20); Calcium 8.7 mg/dL (8.5-10.5); Carbon Dioxide 23 mmol/L (22-29); Chloride 97 mmol/L (98-107); Creatinine Clr Calc Pharmacy 85.5116; Globulin 3.5 g/dL (1.3-4.6); Glucose 372 mg/dL (65-115); Osmolality Calculated 288 mOsm/kg (285-295); Sodium 131 mmol/L (136-145); Thyroid Stimulating Hormone 0.88 uIU/mL (0.27-4.20); Total Bilirubin 0.2 mg/dL (0.15-1.2); Total Protein 6.7 g/dL (6.6-8.7)
[2021-06-10 05:36] LABS: Anion Gap 15.1 (5-19); Aspartate Amino Transferase 15 U/L (0-32); Potassium 4.1 mmol/L (3.5-5.1)
[2021-06-10 06:00] LABS: Estmated Average Glucose 243; Hemoglobin A1C 10.1 % (4.0-6.0)
[2021-06-10 06:52] LABS: Glucose Point of Care 415 mg/dL (70-110)
[2021-06-10] MEDS: ondansetron 2 mg/ML SDV 2 mL 4 MG IVP (08:14)
[2021-06-10] MEDS: regadenoson 0.4 Mg/5 ml Syringe IVP (08:14)
[2021-06-10] MEDS: citalopram 20 mg Tablet 40 MG PO (10:07)
[2021-06-10] MEDS: pregabalin 150 mg Capsule PO (10:07)
[2021-06-10] MEDS: oxyCODONE IR 30 mg Tablet PO (10:07)
[2021-06-10] MEDS: pantoprazole DR 40 mg Tablet PO (10:08)
[2021-06-10] MEDS: clarithromycin 500 mg Tablet PO (10:08)
[2021-06-10] MEDS: metroNIDAZOLE 500 MG Tablet PO ×2 (10:08→16:18)
[2021-06-10] MEDS: tizanidine 4 mg Tablet PO (10:13)
[2021-06-10 10:32] LABS: Glucose Point of Care 371 mg/dL (70-110)
--- NOTE | 2021-06-10 12:41 | P.DS_ITS ---
Discharge Providers Date of Admission: 06/09/21 14:06 Date of Discharge: June 10, 2021 Attending Provider at Admission: Heidi Martinez Attending Provider at Discharge: Emmanuel Sevilla MD Primary Care Provider: Yesica Bailey MD Diagnoses at Discharge Discharge Diagnosis (1) Chest pain: Status: Acute Qualifiers: Chest pain type: other chest pain Qualified Code(s): R07.89 - Other chest pain (2) Diabetes: Status: Acute Qualifiers: Diabetes mellitus type: type 2 Diabetes mellitus [employer] insulin use: with chcf use Diabetes mellitus complication status: with hyperglycemia Qualified Code(s): E11.65 - Type 2 diabetes mellitus with hyperglycemia; Z79.4 - [employer] (current) use of insulin (3) Helicobacter positive gastritis: Status: Acute Reason for Visit Reason for Visit: CP Hospital Course Hospital Course 50-year-old female with a past medical history significant for anxiety, depression, chronic pain on opioids, hypertension, diabetes mellitus, migraines,Tobacco abuse, chronic obstructive pulmonary disease presented to the hospital with left-sided chest pain. Patient stated this radiated to the left upper extremity and left side of neck.Denies any prior history of cardiac disease. Stated she did have a stress test however this was long time ago.No prior catheterizations. Workup in emergency room showed WBC of 9.6, hemoglobin of 12.7, hematocrit 39.5 and a platelet count of 156. D-dimer of 0.94. Sodium 133, potassium 3.9, chloride 96, bicarb 22, BUN 10 and creatinine of 0.9. Glucose was elevated at 383. AST of 18, ALT of 11 alkaline phosphatase of 172. Troponin trend was negative. ProBNP of 29. Beta hCG was negative. Urinalysis was negative as well. EKG did not show any evidence of acute ischemia. Imaging studies included chest x-ray which did not show any evidence of acute abnormality.CTA chest was negative for pulmonary embolism.In emergency room patient was given aspirin 324 mg oral x1, nitro 1in paste and multiple doses of Dilaudid. In review of records patient with recently seen by general surgery for workup of abdominal pain.This included an EGD with her shown gastritis with pathology which revealed H pylori positive findings. She was started on dual antibiotic therapy plus PPI with further plan for gastric emptying study. Colonoscopy was also attempted however this was incomplete due to poor prep. Mild diverticulosis and internal hemorrhoids were noted. Patient with a hospital for management of atypical chest pain. She underwent Lexiscan on June 10 which was negative for any active ischemia. It is most likely patient's pain is mostly from gastritis because of positive H. pylori infection. She advised to continue the triple therapy for H. pylori and was started on Carafate. She is advised to follow with a primary care provider within next 7 days. She is also advised to continue following up with endocrinology for better sugar control. Physical Exam Narrative: EXAM NARRATIVE: General: No acute distress, AO x3 HEENT: PERRLA, pupils bilaterally equal and reactive Chest: Normal vesicular breath sounds, no added sounds, equal good air entry bilaterally CVS: S1-S2 regular, no murmurs, no tachycardia, no gallops, no rubs Abdomen: Soft, nontender, no organomegaly, bowel sounds present Neuro: No focal deficits, no facial deformity, AO x3, power 5/5 in all limbs Discharge Data Data Completed and Pending: Completed Studies During Hospitalization Category Date Time Status CT angio chest PE protcl [id number] Stat Cat Scan 06/09/21 12:52 Completed Sestamibi Stress Test Request Routi ne Exams 06/09/21 14:08 Completed XR chest 1V bety ble [id number] Stat Exams 06/09/21 11:07 Completed NM abi perf SPECT r/s* [id number] Routin e Nuc Med 06/10/21 14:08 Completed CV. echo complete * [id number] Routine Ultrasound 06/09/21 14:05 Completed Labs from last 24 hours 06/10/21 06/10/21 06/10/21 10:17 06:49 04:38 WBC RBC Hgb Hct MCV MCH MCHC RDW Plt Count MPV Neut % (Auto) Lymph % (Auto) [place] % (Auto) Eos % (Auto) Baso % (Auto) Neut # (Auto) Lymph # (Auto) [place] # (Auto) Eos # (Auto) Baso # (Auto) Nucleated RBC % (a uto) Nucleated RBCs # Sodium Potassium Chloride Carbon Dioxide Anion Gap BUN Creatinine GFR Calculation Glucose POC Glucose 371 H 415 H Estimat Average Gl ucose 243 Hemoglobin A1c 10.1 H Calculated Osmolal ity Calcium Total Bilirubin AST ALT Alkaline Phosphata se Troponin T 120 Min [place] Delta Troponin T Troponin T Hi Sens 6Hr Troponin T Hi Sens 6Hr Delta Total Protein Albumin Globulin TSH HCG, Qual Urine Color Urine Appearance Urine pH Ur Specific Gravit y Urine Protein Urine Glucose (UA) Urine Ketones Urine Blood Urine Nitrate Urine Bilirubin Urine Urobilinogen Ur Leukocyte Fartun ase SARS-CoV-2 Ag (Rap id) 06/10/21 06/10/21 06/09/21 04:38 04:38 21:18 WBC 7.4 RBC 4.49 Hgb 12.6 Hct 39.9 MCV 88.9 MCH 28.1 MCHC 31.6 RDW 14.2 Plt Count 143 MPV 11.6 H Neut % (Auto) 45.1 Lymph % (Auto) 43.3 [place] % (Auto) 8.1 Eos % (Auto) 1.9 Baso % (Auto) 0.5 Neut # (Auto) 3.36 Lymph # (Auto) 3.2 [place] # (Auto) 0.6 Eos # (Auto) 0.1 Baso # (Auto) 0.0 Nucleated RBC % (a uto) 0 Nucleated RBCs # 0.0 Sodium 131 L Potassium 4.1 Chloride 97 L Carbon Dioxide 23 Anion Gap 15.1 BUN 14 Creatinine 0.9 GFR Calculation 66.0 L Glucose 372 H POC Glucose 383 H Estimat Average Gl ucose Hemoglobin A1c Calculated Osmolal ity 288 Calcium 8.7 Total Bilirubin 0.2 AST 15 ALT 9 Alkaline Phosphata se 168 H Troponin T 120 Min [place] Delta Troponin T Troponin T Hi Sens 6Hr Troponin T Hi Sens 6Hr Delta Total Protein 6.7 Albumin 3.2 L Globulin 3.5 TSH 0.88 HCG, Qual Urine Color Urine Appearance Urine pH Ur Specific Gravit y Urine Protein Urine Glucose (UA) Urine Ketones Urine Blood Urine Nitrate Urine Bilirubin Urine Urobilinogen Ur Leukocyte Fartun ase SARS-CoV-2 Ag (Rap id) 06/09/21 06/09/21 06/09/21 17:25 17:21 15:16 WBC RBC Hgb Hct MCV MCH MCHC RDW Plt Count MPV Neut % (Auto) Lymph % (Auto) [place] % (Auto) Eos % (Auto) Baso % (Auto) Neut # (Auto) Lymph # (Auto) [place] # (Auto) Eos # (Auto) Baso # (Auto) Nucleated RBC % (a uto) Nucleated RBCs # Sodium Potassium Chloride Carbon Dioxide Anion Gap BUN Creatinine GFR Calculation Glucose POC Glucose 210 H 126 H Estimat Average Gl ucose Hemoglobin A1c Calculated Osmolal ity Calcium Total Bilirubin AST ALT Alkaline Phosphata se Troponin T 120 Min [place] Delta Troponin T Troponin T Hi Sens 6Hr 8.42 Troponin T Hi Sens 6Hr Delta 1.42 Total Protein Albumin Globulin TSH HCG, Qual Urine Color Urine Appearance Urine pH Ur Specific Gravit y Urine Protein Urine Glucose (UA) Urine Ketones Urine Blood Urine Nitrate Urine Bilirubin Urine Urobilinogen Ur Leukocyte Fartun ase SARS-CoV-2 Ag (Rap id) 06/09/21 06/09/21 06/09/21 13:15 13:00 13:00 WBC RBC Hgb Hct MCV MCH MCHC RDW Plt Count MPV Neut % (Auto) Lymph % (Auto) [place] % (Auto) Eos % (Auto) Baso % (Auto) Neut # (Auto) Lymph # (Auto) [place] # (Auto) Eos # (Auto) Baso # (Auto) Nucleated RBC % (a uto) Nucleated RBCs # Sodium Potassium Chloride Carbon Dioxide Anion Gap BUN Creatinine GFR Calculation Glucose POC Glucose Estimat Average Gl ucose Hemoglobin A1c Calculated Osmolal ity Calcium Total Bilirubin AST ALT Alkaline Phosphata se Troponin T 120 Min [place] 6.70 Delta Troponin T -0.30 L Troponin T Hi Sens 6Hr Troponin T Hi Sens 6Hr Delta Total Protein Albumin Globulin TSH HCG, Qual Negative Urine Color Yellow Urine Appearance Clear Urine pH 5 Ur Specific Gravit y 1.020 Urine Protein Neg Urine Glucose (UA) 4+ H Urine Ketones Negative Urine Blood Neg Urine Nitrate Negative Urine Bilirubin Neg Urine Urobilinogen Norm Ur Leukocyte Fartun ase Negative SARS-CoV-2 Ag (Rap id) 06/09/21 12:20 WBC RBC Hgb Hct MCV MCH MCHC RDW Plt Count MPV Neut % (Auto) Lymph % (Auto) [place] % (Auto) Eos % (Auto) Baso % (Auto) Neut # (Auto) Lymph # (Auto) [place] # (Auto) Eos # (Auto) Baso # (Auto) Nucleated RBC % (a uto) Nucleated RBCs # Sodium Potassium Chloride Carbon Dioxide Anion Gap BUN Creatinine GFR Calculation Glucose POC Glucose Estimat Average Gl ucose Hemoglobin A1c Calculated Osmolal ity Calcium Total Bilirubin AST ALT Alkaline Phosphata se Troponin T 120 Min [place] Troponin T Troponin T Hi Sens 6Hr Troponin T Hi Sens 6Hr Delta Total Protein Albumin Globulin TSH HCG, Qual Urine Color Urine Appearance Urine pH Ur Specific Gravit y Urine Protein Urine Glucose (UA) Urine Ketones Urine Blood Urine Nitrate Urine Bilirubin Urine Urobilinogen Ur Leukocyte Fartun ase SARS-CoV-2 Ag (Rap id) Negative Addt'l Data from Hospital Stay: Laboratory Results WBC 7.4 10^3/uL (4.0- 10.0) 06/10/21 04:38 RBC 4.49 10^6/uL (4.1 -5.3) 06/10/21 04:38 Hgb 12.6 g/dL (11.5-1 5.3) 06/10/21 04:38 Hct 39.9 % (37.0-47.0 ) 06/10/21 04:38 MCV 88.9 fL (81-99) 06/10/21 04:38 MCH 28.1 pg (28.0-34. 0) 06/10/21 04:38 MCHC 31.6 g/dL (30.0-3 6.0) 06/10/21 04:38 RDW 14.2 % (12.1-15.1 ) 06/10/21 04:38 Plt Count 143 10^3/cmm (130 -400) 06/10/21 04:38 MPV 11.6 fL (7.4-10.4 ) H 06/10/21 04:38 Neut % (Auto) 45.1 % 06/10/21 04:38 Lymph % (Auto) 43.3 % 06/10/21 04:38 [place] % (Auto) 8.1 % 06/10/21 04:38 Eos % (Auto) 1.9 % 06/10/21 04:38 Baso % (Auto) 0.5 % 06/10/21 04:38 Neut # (Auto) 3.36 10^3/uL (1.8 -7.7) 06/10/21 04:38 Lymph # (Auto) 3.2 10^3/uL (0.8- 4.8) 06/10/21 04:38 [place] # (Auto) 0.6 10^3/uL (0.2- 0.9) 06/10/21 04:38 Eos # (Auto) 0.1 10^3/uL (0.0- 0.8) 06/10/21 04:38 Baso # (Auto) 0.0 10^3/uL (0.0- 0.1) 06/10/21 04:38 Nucleated RBC % (a uto) 0 % 06/10/21 04:38 Nucleated RBCs # 0.0 /100WBC 06/10/21 04:38 D-Dimer 0.94 ug/mIFEU (0- 0.59) H 06/09/21 11:00 Sodium 131 mmol/L (136-1 45) L 06/10/21 04:38 Potassium 4.1 mmol/L (3.5-5 .1) 06/10/21 04:38 Chloride 97 mmol/L (98-107 ) L 06/10/21 04:38 Carbon Dioxide 23 mmol/L (22-29) 06/10/21 04:38 Anion Gap 15.1 (5-19) 06/10/21 04:38 BUN 14 mg/dL (6-20) 06/10/21 04:38 Creatinine 0.9 mg/dL (0.5-0. 9) 06/10/21 04:38 GFR Calculation 66.0 mL/min (90-1 30) L 06/10/21 04:38 Glucose 372 mg/dL (65-115 ) H 06/10/21 04:38 POC Glucose 371 mg/dL (70-110 ) H 06/10/21 10:17 Estimat Average Gl ucose 243 06/10/21 04:38 Hemoglobin A1c 10.1 % (4.0-6.0) H 06/10/21 04:38 Calculated Osmolal ity 288 mOsm/kg (285- 295) 06/10/21 04:38 Calcium 8.7 mg/dL (8.5-10 .5) 06/10/21 04:38 Total Bilirubin 0.2 mg/dL (0.15-1 .2) 06/10/21 04:38 AST 15 U/L (0-32) 06/10/21 04:38 ALT 9 U/L (0-33) 06/10/21 04:38 Alkaline Phosphata se 168 IU/L (35-105) H 06/10/21 04:38 Troponin T Baselin e 7 ng/L (0-10) 06/09/21 11:00 Troponin T 120 Min [place] 6.70 ng/L (0-10) 06/09/21 13:15 Delta Troponin T -0.30 ABS# (0-10) L 06/09/21 13:15 Troponin T Hi Sens 6Hr 8.42 ng/L (0-10) 06/09/21 17:25 Troponin T Hi Sens 6Hr Delta 1.42 ng/L (0-12) 06/09/21 17:25 NT-Pro-B Natriuret Pep 29 pg/mL (0-125) 06/09/21 11:00 Total Protein 6.7 g/dL (6.6-8.7 ) 06/10/21 04:38 Albumin 3.2 g/dL (3.5-5.2 ) L 06/10/21 04:38 Globulin 3.5 g/dL (1.3-4.6 ) 06/10/21 04:38 TSH 0.88 uIU/mL (0.27 -4.20) 06/10/21 04:38 HCG, Qual Negative (Negati ve) 06/09/21 13:00 Urine Color Yellow (Yellow) 06/09/21 13:00 Urine Appearance Clear (CLEAR) 06/09/21 13:00 Urine pH 5 (5-7) 06/09/21 13:00 Ur Specific Gravit y 1.020 (1.005-1.0 30) 06/09/21 13:00 Urine Protein Neg (Negative) 06/09/21 13:00 Urine Glucose (UA) 4+ (Normal) H 06/09/21 13:00 Urine Ketones Negative (Negati ve) 06/09/21 13:00 Urine Blood Neg (Negative) 06/09/21 13:00 Urine Nitrate Negative (Negati ve) 06/09/21 13:00 Urine Bilirubin Neg (Negative) 06/09/21 13:00 Urine Urobilinogen Norm mg/dL (Negat lisa) 06/09/21 13:00 Ur Leukocyte Fartun ase Negative (Negati ve) 06/09/21 13:00 SARS-CoV-2 Ag (Rap id) Negative (Negati ve) 06/09/21 12:20 Impressions Chest X-Ray 06/09/21 11:07 IMPRESSION: No acute findings. Chest CTA 06/09/21 12:52 IMPRESSION: 1. Negative for pulmonary embolism. No acute intrathoracic process. 2. 3 cm right adrenal nodule, not significantly changed from prior examination, most likely an adenoma. Radiation Dose CTDIVOL = (mGy): DLP = 582.44 (mGy-cm) Lexiscan Perfusion Study IMPRESSIONS 1. Fixed anterior wall perfusion defect seen which likely represents attenuation artifact. No evidence of ischemia noted 2. Elevated TID 2. LV systolic function is normal Echocardiogram: Ejection fraction 60%, no regional wall motion abnormality, normal diastolic function, no significant valvular disease. Vitals: Last Vital Signs Temp 97.5 F L 06/10/21 11:12 Pulse 70 06/10/21 11:12 Resp 16 06/10/21 11:12 BP 102/66 06/10/21 11:12 Pulse Ox 96 06/10/21 11:12 Discharge Plan Discharge Patient Disposition: Home Condition: Stable Prescriptions: Continued oxycodone 30 mg tablet 30 mg PO TID PRN (Reason: pain) 30 Days Qty: 60 RF: 0 oxycodone 30 mg tablet 30 mg PO TID PRN (Reason: pain) 30 Days Qty: 30 RF: 0 oxycodone 30 mg tablet 30 mg PO TID PRN (Reason: pain) 30 Days Qty: 60 RF: 0 oxycodone 30 mg tablet 30 mg PO TID PRN (Reason: pain) 30 Days Qty: 30 RF: 0 tramadol 50 mg tablet 100 mg PO TID PRN (Reason: Pain) 30 Days Qty: 180 RF: 1 tizanidine 4 mg tablet 4 mg PO TID PRN (Reason: muscle spasticity) 30 Days Qty: 90 RF: 1 oxymetazoline [Afrin (oxymetazoline)] 0.05 % spray,non-aerosol 2 spray INTRANASAL PRN PRN (Reason: Nasal Congestion) RF: 0 Humulin R U-500 (Conc) Kwikpen 500 unit/mL (3 mL) insulin pen See Rx Instructions SUBCUT QAM Qty: 20 RF: 3 (DME) pen needle, diabetic [BD Ultra-Fine Mini Pen Needle] 31 gauge x 3/16 needle See Rx Instructions .ROUTE .MEDSUPPLY Qty: 50 RF: 3 hydrocortisone [Procto-Med HC] 2.5 % cream with perineal applicator 1 applic RI DAILY PRN (Reason: pain) 30 Days Qty: 30 RF: 5 citalopram [Celexa] 40 mg tablet 40 mg PO DAILY@20 Qty: 30 RF: 3 ondansetron HCl 4 mg tablet 4 mg PO Q6H PRN (Reason: Nausea) Qty: 30 RF: 2 prazosin 1 mg capsule 1 mg PO DAILY@20 Qty: 30 RF: 3 ropinirole 2 mg tablet 2 mg PO DAILY@20 Qty: 30 RF: 3 nitroglycerin [Nitrostat] 0.4 mg tablet, sublingual 0.4 mg SUBLINGUAL Q5M PRN (Reason: Chest Pain) Qty: 25 RF: 3 sumatriptan succinate [Imitrex] 100 mg tablet 100 mg PO PRN PRN (Reason: Migraine Headache) 30 Days Qty: 14 RF: 2 fluconazole [Diflucan] 150 mg tablet 150 mg PO Q3D 15 Days Qty: 5 RF: 1 metronidazole 500 mg tablet 500 mg PO TID 14 Days Qty: 42 RF: 0 clarithromycin 500 mg tablet 500 mg PO BID 14 Days Qty: 28 RF: 0 multivitamin Tablet 1 tab PO DAILY@08 RF: 0 promethazine 25 mg tablet 12.5 mg PO BEDTIME RF: 0 zolpidem 10 mg tablet 5 mg PO BEDTIME PRN (Reason: insomnia) RF: 0 ProAir HFA 90 mcg/actuation HFA aerosol inhaler 2 puff inhalation QID PRN (Reason: Shortness Of Breath) RF: 0 Lyrica 300 mg capsule 300 mg PO BID@08,20 RF: 0 Protonix [address] for susp in packet 40 mg PO BID@08,20 RF: 0 lactulose 20 gram/30 mL solution 20 g PO BEDTIME PRN (Reason: Constipation) RF: 0 Discontinued Bactrim DS 800-160 mg tablet 1 tab PO BID RF: 0 doxycycline hyclate 100 mg tablet See Rx Instructions .ROUTE .COMPLEX RF: 0 Discharge Orders: Discharge Order (Routine); Ordered 06/10/21 Ordered By: Emmanuel Sevilla Referrals: Yesica Bailey MD [Primary Care Provider] - 7-10 days Discharge Diet: Diabetic Discharge Activity: Resume usual activity Patient Instructions: Opioid Safety Activity Restrictions/Additional Instructions: Follow uup with PCP within next 7 days. Discharge Attestations Time Spent in Discharge Care*: greater than 30 min Specific Discharge Activities: educating patient, educating and/or supporting family/caregiver, discussing with pcp/other providers, discussing with rn case manager hospice/social workers/dc planners, documenting/other paperwork and evaluating patient/reviewing data Status at Discharge: Cognitive status at discharge: cognitively intact , Behavioral status at discharge: cooperative , Functional status at discharge: independent ambulation Overall status at discharge: patient is back to baseline Quality Metrics Clinical Quality Measures During this hospital stay, did patient experience: None Coding Level of Care Code Acute Chg FW DC note Diagnoses Chest pain R07.89 Chest pain type: other chest pain Diabetes E11.65; Z79.4 Diabetes mellitus type: type 2 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
--- NOTE | 2021-06-10 14:08 | NMCV_ITS ---
NM abi perf SPECT r/s* [id number] Analia Hurst Age: 50 Gender: F : 1970 Exam Date: 06/10/2021 06:52 Ordering Phys: Heidi Martinez MD Technologist: AIRAM Dowling Exam Location: [facility] Indications: CHEST PAIN STRESS TEST [facility] IMAGE PROTOCOL Rest/Stress 1 Lexiscan Day Radiopharmaceutical Dose (mCi) Administration Site Administered by Rest: Tc-99m 10.9 IV AIRAM Middleton Sestamibi Stress:Tc-99m 32.6 IV AIRAM Dowling Sestamiortiz Rest: 10-Jun-2021 60 Discovery 630 Stress: 10-Jun-2021 30 Discovery 630 0.4mg Lexiscan. Images obtained in supine and prone position. SPECT RESULTS Technical Quality: Excellent Raw Data Analysis: Normal Image Corrections: No attenuation or motion correction applied Summed Stress Score: 5 Summed Rest Score: 6 Summed Difference Score: 1 PERFUSION FINDINGS There is a moderate in size fixed perfusion defect in the anterior, apical anterior lopez. This improves slightly on stress. Likely attenuation artifact FUNCTIONAL RESULTS (calculated via Gated SPECT) Stress Image LV EF (%): 70 Stress EDV (mL):111 TID: 1.35 Stress ESV (mL):33 FUNCTIONAL FINDINGS: There is normal left ventricular systolic function. IMPRESSIONS 1. Fixed anterior wall perfusion defect seen which likely represents attenuation artifact. No evidence of ischemia noted 2. Elevated TID 2. LV systolic function is normal Grayson Cota MD (Electronically Signed) Final Date: 10 June 2021 09:49 S
== END 2021-06-10 16:24 | disposition home or self-care (01) ==
LOC: ER 14:02 → MEDSURG 14:56
PROVIDERS: Admitting Provider Hospitalist; Emergency Provider Emergency Medicine; PCP Family Medicine; Visit Provider Student in an Organized Health Care Education/Training Program
DX: R07.89 Other chest pain (principal); E11.65 Type 2 diabetes mellitus with hyperglycemia; Z79.4 Long term (current) use of insulin; K29.70 Gastritis, unspecified, without bleeding; B96.81 Helicobacter pylori [H. pylori] as the cause of diseases classified elsewhere; F41.9 Anxiety disorder, unspecified; F32.9 Major depressive disorder, single episode, unspecified; G89.29 Other chronic pain; Z79.891 Long term (current) use of opiate analgesic; F17.210 Nicotine dependence, cigarettes, uncomplicated; J44.9 Chronic obstructive pulmonary disease, unspecified; Z82.49 Family history of ischemic heart disease and other diseases of the circulatory system; Z82.3 Family history of stroke
CPT/HCPCS: 36415; 36416; 71045; 71275; 78452; 80053; 81003; 81025; 82962; 83036; 83880; 84443; 84484; 85025; 85378; 87426; 93005; 93017; 93306; 96372; 96374; 99285; A9500; G0378; J1170; J1650; J1815 ×2; J2405; J2785; Q9967

== ENCOUNTER 2021-06-24 08:04 | Outpatient (CLI) | payer MEDICAID, SELFPAY | END 2021-06-24 08:05 | disposition home or self-care (01) | PROVIDERS: PCP Family Medicine; Visit Provider Surgery | DX: R30.0 Dysuria (principal) | CPT/HCPCS: 81000 ==

== ENCOUNTER → 2021-06-28 07:00 | Outpatient (BNVA) | payer MEDICAID, SELFPAY | PROVIDERS: PCP Family Medicine; Referring Provider Orthopaedic Surgery; Visit Provider Student in an Organized Health Care Education/Training Program | DX: M86.9 Osteomyelitis, unspecified (principal) | CPT/HCPCS: 87070; 87075; 87205 ==

== ENCOUNTER 2021-07-03 07:36 | Outpatient (CLI) | payer MEDICAID, SELFPAY ==
--- NOTE | 2021-07-03 08:00 | NM_ITS ---
WS: [id number] NUCLEAR MEDICINE GASTRIC EMPTYING EXAMINATION HISTORY: R11.0 - Nausea COMPARISON: None available. TECHNIQUE: The patient ingested a meal containing 0.99 mCi of Tc 99m sulfur colloid mixed with eggs. The patient was placed in supine position and imaging over the abdomen was performed for a total of 9 0 minutes. Computer acquisition with the region of interest placed over the stomach to evaluate gastr ic emptying half-time. 120 minutes only 7% emptying from the stomach. There is no significant emptying from the stomach 120 minutes. NM/[place] [id number] IMPRESSION: Severe high-grade gastroparesis. No significant emptying of the stomach at 2 ho urs.
== END 2021-07-03 07:37 | disposition home or self-care (01) ==
PROVIDERS: PCP Family Medicine; Visit Provider Surgery
DX: R11.0 Nausea (principal); K31.84 Gastroparesis
CPT/HCPCS: 78264; A9541

== ENCOUNTER 2021-07-12 07:52 | Outpatient (CLI) | payer MEDICAID, SELFPAY ==
--- NOTE | 2021-07-12 08:00 | MR_ITS ---
WS: [id number] MRI LUMBAR SPINE NONCONTRAST HISTORY: M54.9 - Dorsalgia, unspecified COMPARISON: 09/11/2017 TECHNIQUE: Sagittal and axial multisequence imaging is submitted. Posterior lumbar fusion at L4-5. Posterior alignment is normal. Mild disc desiccation at L2-3, L3-4 and L4-5. No marrow edema or fracture. Conus terminates normally at L1. L1-L2: Normal. L2-L3: Very slight annular disc bulging and mild facet arthritis. L3-L4: Mild asymmetric disc bulging slightly greater to the RIGHT and mild ligamentum flavum and face t joint arthritis. Very slight flattening of the ventral thecal sac and mild central stenosis. Slight ly greater encroachment upon the RIGHT L4 nerve root. L4-L5: Facet joint arthritis. Nerve roots are becoming clumped within the thecal sac and there is a l arge posterior laminectomy defect. L5-S1: No stenosis or disc herniation. Mild peripheral clumping of the nerve roots. Visualized retroperitoneum is negative. MR/MR lumbar spine wo con* [id number] IMPRESSION: 1. Status post posterior lumbar fusion at L4-5 which appears stable. Large kaplan inectomy defects at this level. 2. Mild asymmetric disc bulging at L3-4 with mild encroachment upon the RIGHT L4 nerve root. Mild central stenosis.
--- NOTE | 2021-07-12 08:45 | MR_ITS ---
WS: [id number] MRI THORACIC SPINE noncontrast. HISTORY: M54.9 - Dorsalgia, unspecified COMPARISON: 05/18/2015 TECHNIQUE: Multiplanar sequences are performed in sagittal and axial planes. Prior anterior cervical fusion. Normal posterior thoracic alignment. No marrow edema or acute fractur es. There is very slight anterior wedging of T6 and T8. T1-2: Mild facet joint arthritis. Mild foraminal narrowing. T2-3: Mild bilateral facet joint arthritis with mild foraminal narrowing and central disc protrusion with near contact on the LEFT lateral thoracic cord. T3-4: Moderate size central to RIGHT paracentral disc protrusion contacting and very minimally displ acing the RIGHT lateral thecal sac. Mild bilateral foraminal narrowing, greatest on the RIGHT. T4-5: Mild foraminal stenosis. T5-6: Shallow central disc protrusion no stenosis. T6-7: Mild facet arthritis without stenosis. T7-8: Normal. T8-9: Normal. T9-10: Normal. T10-11: Mild bilateral facet joint arthritis. No stenosis. T11-12: Normal. RIGHT renal cyst. MR/MR thoracic spin wo con* [id number] IMPRESSION: 1. Moderate-sized RIGHT paracentral disc protrusion at T3-4 contacting the RIG HT lateral thecal sac with mild displacement. Mild progression since the prior study. 2. Small central disc protrusion at T2-3 with near contact on the ventral thor acic cord. 3. Additional mild bilateral foraminal stenosis and facet joint arthritis as d escribed above. Very minimal progression of degenerative disease since 5. The T5-6 disc protrusion has resolved.
== END 2021-07-12 07:53 | disposition home or self-care (01) ==
LOC: RADSHAW 07:56
PROVIDERS: PCP Family Medicine; Visit Provider Orthopaedic Surgery
DX: M51.24 Other intervertebral disc displacement, thoracic region (principal); M48.061 Spinal stenosis, lumbar region without neurogenic claudication; M43.26 Fusion of spine, lumbar region; M51.26 Other intervertebral disc displacement, lumbar region
CPT/HCPCS: 72146; 72148

== ENCOUNTER → 2021-07-25 09:55 | Outpatient (BNVA) | payer MEDICAID, SELFPAY | PROVIDERS: PCP Family Medicine; Visit Provider Nurse Practitioner | DX: M54.5 Low back pain (principal); M96.1 Postlaminectomy syndrome, not elsewhere classified; M48.02 Spinal stenosis, cervical region; M43.22 Fusion of spine, cervical region; Z79.891 Long term (current) use of opiate analgesic | CPT/HCPCS: 99213 ==

== ENCOUNTER → 2021-08-08 08:32 | Outpatient (BNVA) | payer MEDICAID, SELFPAY | PROVIDERS: PCP Family Medicine; Visit Provider Orthopaedic Surgery | DX: Z47.89 Encounter for other orthopedic aftercare (principal); Z98.1 Arthrodesis status; M47.816 Spondylosis without myelopathy or radiculopathy, lumbar region; M47.814 Spondylosis without myelopathy or radiculopathy, thoracic region | CPT/HCPCS: 72070; 72120 ==

== ENCOUNTER → 2021-10-04 07:54 | Outpatient (BNVA) | payer MEDICAID, SELFPAY | PROVIDERS: PCP Family Medicine; Visit Provider Anesthesiology | DX: M54.50 Low back pain, unspecified (principal); M48.02 Spinal stenosis, cervical region; M96.1 Postlaminectomy syndrome, not elsewhere classified; M25.562 Pain in left knee; Z79.891 Long term (current) use of opiate analgesic; F17.200 Nicotine dependence, unspecified, uncomplicated; Z71.6 Tobacco abuse counseling | CPT/HCPCS: 99214 ==

== ENCOUNTER → 2021-10-09 08:32 | Outpatient (BNVA) | payer MEDICAID, SELFPAY | PROVIDERS: PCP Family Medicine; Visit Provider Internal Medicine | DX: E11.59 Type 2 diabetes mellitus with other circulatory complications (principal); E11.65 Type 2 diabetes mellitus with hyperglycemia; E11.40 Type 2 diabetes mellitus with diabetic neuropathy, unspecified; I25.10 Atherosclerotic heart disease of native coronary artery without angina pectoris; E78.5 Hyperlipidemia, unspecified; I63.9 Cerebral infarction, unspecified; Z79.4 Long term (current) use of insulin; Z79.84 Long term (current) use of oral hypoglycemic drugs; Z77.22 Contact with and (suspected) exposure to environmental tobacco smoke (acute) (chronic); I10 Essential (primary) hypertension | CPT/HCPCS: 99214 ==

== ENCOUNTER → 2021-11-06 08:44 | Outpatient (BNVA) | payer MEDICAID, SELFPAY | PROVIDERS: PCP Family Medicine; Referring Provider Family Medicine; Visit Provider Anesthesiology Pain Medicine | DX: M54.50 Low back pain, unspecified (principal); M79.604 Pain in right leg; M79.605 Pain in left leg | CPT/HCPCS: 99205; 99215 ==

== ENCOUNTER → 2021-12-04 09:05 | Outpatient (BNVA) | payer MEDICAID, SELFPAY | PROVIDERS: PCP Family Medicine; Visit Provider Anesthesiology | DX: G89.29 Other chronic pain (principal); M54.50 Low back pain, unspecified; M96.1 Postlaminectomy syndrome, not elsewhere classified; M25.562 Pain in left knee; M48.02 Spinal stenosis, cervical region; Z79.891 Long term (current) use of opiate analgesic | CPT/HCPCS: 99214 ==

== ENCOUNTER → 2021-12-06 13:09 | Outpatient (BNVA) | payer MEDICAID, SELFPAY | PROVIDERS: PCP Family Medicine; Referring Provider Family Medicine; Visit Provider Podiatrist Foot & Ankle Surgery | DX: M79.675 Pain in left toe(s) (principal) | CPT/HCPCS: 73630 ==

== ENCOUNTER → 2021-12-10 14:24 | Outpatient (BNVA) | payer MEDICAID, SELFPAY | PROVIDERS: PCP Family Medicine; Visit Provider Anesthesiology Pain Medicine | DX: Z79.891 Long term (current) use of opiate analgesic (principal); M47.816 Spondylosis without myelopathy or radiculopathy, lumbar region | CPT/HCPCS: 64493; 64494; 64495; J3490 ==

== ENCOUNTER 2021-12-24 08:08 | Outpatient (CLI) | payer MEDICAID, SELFPAY | END 2021-12-24 08:09 | disposition home or self-care (01) | LOC: WOUND 08:09 | PROVIDERS: PCP Family Medicine; Visit Provider Emergency Medicine | DX: I96 Gangrene, not elsewhere classified (principal); E11.621 Type 2 diabetes mellitus with foot ulcer; L97.522 Non-pressure chronic ulcer of other part of left foot with fat layer exposed; L97.511 Non-pressure chronic ulcer of other part of right foot limited to breakdown of skin | CPT/HCPCS: 11042; 87070; 87176; 87205; 99213 ==

== ENCOUNTER 2021-12-31 08:27 | Outpatient (CLI) | payer MEDICAID, SELFPAY | END 2021-12-31 08:28 | disposition home or self-care (01) | LOC: WOUND 08:28 | PROVIDERS: PCP Family Medicine; Visit Provider Emergency Medicine | DX: I96 Gangrene, not elsewhere classified (principal); E11.621 Type 2 diabetes mellitus with foot ulcer; L97.522 Non-pressure chronic ulcer of other part of left foot with fat layer exposed; L97.411 Non-pressure chronic ulcer of right heel and midfoot limited to breakdown of skin | CPT/HCPCS: 11042 ==

== ENCOUNTER → 2022-01-01 07:50 | Outpatient (BNVA) | payer MEDICAID, SELFPAY | PROVIDERS: PCP Family Medicine; Visit Provider Anesthesiology | DX: G89.29 Other chronic pain (principal); M48.02 Spinal stenosis, cervical region; M54.50 Low back pain, unspecified; M96.1 Postlaminectomy syndrome, not elsewhere classified; F17.210 Nicotine dependence, cigarettes, uncomplicated; Z79.891 Long term (current) use of opiate analgesic | CPT/HCPCS: 99214 ==

== ENCOUNTER 2022-01-08 08:21 | Outpatient (CLI) | payer MEDICAID, SELFPAY ==
--- NOTE | 2022-01-08 08:32 | USR_ITS ---
PROCEDURE INFORMATION: Exam: US Bilateral Noninvasive Physiologic Study of the Lower Extremity Arteries, Limited Exam date and time: 01/08/2022 8:32 AM Age: 51 years old Clinical indication: Condition or disease; Other: Dm2/ ulcer; Additional info: Dm2 w/ulcer TECHNIQUE: Imaging protocol: Bilateral Limited bilateral noninvasive physiologic studies of lower extremity arteries. Images were documented and archived. Exam is limited. COMPARISON: CR XR foot LT min 3V* [id number] 12/06/2021 1:17 PM FINDINGS: Right femoral arteries: Blood flow waveforms are normal. Waveforms have sharp upstrokes with scooped or flat interval between peaks. Dicrotic notch is present. Right infrapopliteal arteries: Blood flow waveforms are normal. Waveforms have sharp upstrokes with scooped or flat interval between peaks. Dicrotic notch is present. Left femoral arteries: Blood flow waveforms are normal. Waveforms have sharp upstrokes with scooped or flat interval between peaks. Dicrotic notch is present. Left infrapopliteal arteries: Blood flow waveforms are normal. Waveforms have sharp upstrokes with scooped or flat interval between peaks. Dicrotic notch is present. Right Ankle-Brachial Index: 1.04 Left Ankle-Brachial Index: 1.11 US/[place] [id number] IMPRESSION: No evidence of stenosis or occlusion in the lower extremity.
== END 2022-01-08 08:22 | disposition home or self-care (01) ==
PROVIDERS: PCP Family Medicine; Visit Provider Emergency Medicine
DX: E11.621 Type 2 diabetes mellitus with foot ulcer (principal)
CPT/HCPCS: 93923

== ENCOUNTER 2022-01-16 07:57 | Outpatient (CLI) | payer MEDICAID, SELFPAY | END 2022-01-16 07:58 | disposition home or self-care (01) | PROVIDERS: PCP Family Medicine; Visit Provider Emergency Medicine | DX: I96 Gangrene, not elsewhere classified (principal); E11.621 Type 2 diabetes mellitus with foot ulcer; L97.522 Non-pressure chronic ulcer of other part of left foot with fat layer exposed; L97.512 Non-pressure chronic ulcer of other part of right foot with fat layer exposed; F17.210 Nicotine dependence, cigarettes, uncomplicated | CPT/HCPCS: 11042 ==

== ENCOUNTER 2022-01-16 16:16 | Outpatient (CLI) | payer MEDICAID, SELFPAY | END 2022-01-16 16:17 | disposition home or self-care (01) | LOC: SPT 16:17 | PROVIDERS: PCP Family Medicine; Visit Provider Emergency Medicine | DX: R26.89 Other abnormalities of gait and mobility (principal); Z3A.00 Weeks of gestation of pregnancy not specified | CPT/HCPCS: 97760 ==

== ENCOUNTER 2022-02-13 08:19 | Outpatient (CLI) | payer MEDICAID, SELFPAY | END 2022-02-13 08:20 | disposition home or self-care (01) | LOC: WOUND 08:20 | PROVIDERS: PCP Family Medicine; Visit Provider Nurse Practitioner Family | DX: I96 Gangrene, not elsewhere classified; E11.621 Type 2 diabetes mellitus with foot ulcer; L97.521 Non-pressure chronic ulcer of other part of left foot limited to breakdown of skin; Z09 Encounter for follow-up examination after completed treatment for conditions other than malignant neoplasm | CPT/HCPCS: 11042 ==

== ENCOUNTER → 2022-02-27 08:12 | Outpatient (BNVA) | payer MEDICAID, SELFPAY | PROVIDERS: PCP Family Medicine; Visit Provider Nurse Practitioner Family | DX: E11.621 Type 2 diabetes mellitus with foot ulcer (principal); L97.521 Non-pressure chronic ulcer of other part of left foot limited to breakdown of skin | CPT/HCPCS: 11042 ==

== ENCOUNTER → 2022-03-06 07:58 | Outpatient (BNVA) | payer MEDICAID, SELFPAY | PROVIDERS: PCP Family Medicine; Visit Provider Nurse Practitioner Family | DX: E11.621 Type 2 diabetes mellitus with foot ulcer (principal); L97.521 Non-pressure chronic ulcer of other part of left foot limited to breakdown of skin; I96 Gangrene, not elsewhere classified; F17.210 Nicotine dependence, cigarettes, uncomplicated | CPT/HCPCS: 99213 ==

== ENCOUNTER 2022-05-28 11:48 | Outpatient (CLI) | payer MEDICAID, SELFPAY ==
--- NOTE | 2022-05-28 12:05 | XR_ITS ---
WS: [id number] XR hip LT 2-3V wo/w pel* [id number] REASON FOR EXAM: increasing pain left hip FINDINGS: No fracture or focal bone lesion. Minimal narrowing of the left hip joint space with mild subchondral sclerosis and small osteophyte fo rmation of the acetabulum. No soft tissue abnormality. XR/XR hip LT 2-3V wo/w pel* [id number] IMPRESSION: Mild osteoarthritis of the left hip.
== END 2022-05-28 11:49 | disposition home or self-care (01) ==
LOC: RAD 11:50
PROVIDERS: PCP Family Medicine; Visit Provider Family Medicine
DX: M16.12 Unilateral primary osteoarthritis, left hip (principal); E11.9 Type 2 diabetes mellitus without complications; I10 Essential (primary) hypertension
CPT/HCPCS: 73502; 80053; 80061; 83036; 83721; 85025

== ENCOUNTER → 2022-06-05 08:06 | Outpatient (BNVA) | payer MEDICAID, SELFPAY | PROVIDERS: PCP Family Medicine; Visit Provider Internal Medicine | DX: E11.65 Type 2 diabetes mellitus with hyperglycemia (principal); E11.40 Type 2 diabetes mellitus with diabetic neuropathy, unspecified; E11.59 Type 2 diabetes mellitus with other circulatory complications; M96.1 Postlaminectomy syndrome, not elsewhere classified; I25.10 Atherosclerotic heart disease of native coronary artery without angina pectoris; E78.5 Hyperlipidemia, unspecified; Z86.73 Personal history of transient ischemic attack (TIA), and cerebral infarction without residual deficits; F17.210 Nicotine dependence, cigarettes, uncomplicated; Z79.4 Long term (current) use of insulin; Z79.84 Long term (current) use of oral hypoglycemic drugs | CPT/HCPCS: 99214 ==

== ENCOUNTER 2022-06-10 20:56 | Emergency (ER) | payer MEDICAID, SELFPAY ==
[2022-06-10 20:58] VITALS: BP 134/77; PULSE 112; RESP 16; TEMP 36.8; O2SAT 97
--- NOTE | 2022-06-10 21:10 | W.ED.EAR ---
HPI - Ear Problem General: Chief complaint: Ear Stated complaint: R ear pain Time Seen by Provider: 06/10/22 21:03 Source: patient Mode of arrival: ambulatory Limitations: no limitations History of Present Illness: 51-year-old female states that she has been having right ear pain for last 4 to 5 days she states is gotten much worse states she has been swimming daily and does get swimmer's ear believes that it. States it hurts with touch she denies any fevers denies any drainage. Associated symptoms: Reports ear or mastoid pain; Denies fever(s), headache(s) or neck pain Review of Systems Const: Denies: fever(s), chills, body aches or change in appetite Eyes: Denies: blurry vision or eye discomfort ENMT: Reports: ear or mastoid pain Card: Denies: chest pain Resp: Denies: dyspnea GI: Denies: abdominal pain, nausea, vomiting or diarrhea : Denies: dysuria Musc: Denies: neck pain or back pain Skin/Breast: Denies: rash Neuro: Denies: headache(s) Psych: Denies: depression Renny/Lymph: Denies: easy bruising All/Imm: Denies: urticaria PFSH ED PFSH: Medical History Acute hyperglycemia Acute pain of left knee Arthritis of hand, left Depression Diabetes Gastroparesis due to DM Hypertension Insomnia Lumbar post-laminectomy syndrome Pyelonephritis Sepsis Spinal stenosis, cervical region Ulnar nerve impingement Surgical History H/O carpal tunnel repair H/O esophagogastroduodenoscopy (05/23/21) H/O flexible sigmoidoscopy (05/23/21) H/O neck surgery H/O rotator cuff surgery H/O tubal ligation History of hysterectomy History of lumbar fusion S/P left knee arthroscopy Status post laparoscopic cholecystectomy Family History Other CAD (coronary artery disease) Cancer Stroke Denies family history of Anesthesia complication Bleeding disorder Social History Smoking and tobacco status: current some day smoker (STATES SMOKES VERY RARELY) cigarettes [ Other cigarette details: STATES VERY RARELY] Second hand smoke exposure: Yes Alcohol intake: former History of recent travel: No Female Reproductive History: Date of last menstrual period: 12/18/98 Physical Exam Const: COMMON NORMALS: no acute distress, patient oriented x3 and healthy appearing HENMT: COMMON NORMALS: normocephalic and atraumatic HEAD & SCALP: normocephalic and atraumatic OTHER: Otitis externa right ear canal Eye: COMMON NORMALS: Equal, round and reactive pupils present and EOMs intact bilaterally PUPIL: Yes Equal, round and reactive pupils present Neck/C-Spine: COMMON NORMALS: full ROM and supple Chest: COMMONS NORMALS: normal inspection of the chest and normal palpation of entire chest wall Resp: COMMON NORMALS: normal respiratory effort, No retractions, No use of accessory muscles and clear to auscultation bilaterally AUSCULTATION: clear to auscultation bilaterally Cardio: COMMON NORMALS: regular rate, regular rhythm and No murmurs present (Cardio) RATE: regular rate RHYTHM: regular rhythm GI: COMMON NORMALS: Normal to inspection, nondistended, normoactive bowel sounds present, Soft to palpation, non-tender and no masses PALPATION: Yes Soft to palpation Extremity: COMMON NORMALS: normal to inspection and full ROM Neuro: COMMON NORMALS: patient oriented x3, moves all extremities and no focal motor deficits Psych: COMMON NORMALS: mental status grossly normal, Normal thought process present and cooperative THOUGHT PROCESS: Normal thought process present Skin: COMMON NORMALS: no rashes or lesions noted and no wounds GENERAL SKIN EXAM: no rashes or lesions noted Course Vital Signs: Vital signs: Vital Signs Temperature 98.2 F 06/10/22 20:58 Pulse Rate 112 H 06/10/22 20:58 Respiratory Rate 16 06/10/22 20:58 Blood Pressure 134/77 06/10/22 20:58 Pulse Oximetry 97 06/10/22 20:58 MDM - Ear Medical Decision Making Patient presents here with otitis externa on the right ear likely swimmer's ear patient's well-appearing here was unable to see the tympanic membrane we will treat with Keflex for possible otitis media we will start her on Ciprodex she is not to swim or get her ear underwater she is stable for discharge return if worsening. Discharge Plan Discharge Patient Disposition: Home Clinical Impression: Otitis externa Qualifiers: Otitis externa type: swimmer's ear Chronicity: acute Laterality: right Qualified Code(s): H60.331 - Swimmer's ear, right ear Condition: Stable Prescriptions: New ciprofloxacin-dexamethasone [Ciprodex] 0.3-0.1 % drops,suspension 4 drp otic (ear) BID 7 Days 0RF cephalexin 500 mg capsule 500 mg PO TID 7 Days Qty: 21 0RF No Action (DME) OneTouch Ultra Test Strip See Rx Instructions .Route Qty: 300 3RF Rx Instructions: to use in onetouch ultra meter TID to check blood sugar 90 supply bupivacaine (PF) 0.25 % (2.5 mg/mL) solution 1 ml intra-articular ONCE Qty: 1 0RF lidocaine (PF) 10 mg/mL (1 %) solution 1 ml intra-articular ONCE Qty: 1 0RF mupirocin 2 % ointment 1 applic topical TID Qty: 15 0RF (DME) Diabetic Shoes with 3 pairs of inserts See Rx Instructions .ROUTE .MEDSUPPLY Qty: 1 0RF Rx Instructions: As directed by [facility] oxymetazoline [Afrin (oxymetazoline)] 0.05 % spray,non-aerosol 2 spray INTRANASAL PRN PRN (Reason: Nasal Congestion) 0RF (DME) pen needle, diabetic [BD Ultra-Fine Mini Pen Needle] 31 gauge x 3/16 needle See Rx Instructions .ROUTE .MEDSUPPLY Qty: 50 3RF Rx Instructions: As directed fluconazole [Diflucan] 150 mg tablet 150 mg PO Q3D 15 Days Qty: 5 2RF oxycodone 30 mg tablet 15 mg PO TID PRN (Reason: pain) 0RF Rx Instructions: May fill early on 02/27 due to contamination of weekly pill space planner...[employer] (DME) Dexcom G6 Structural Design Engineer Misc See Rx Instructions .Route Qty: 1 0RF Rx Instructions: Check BS 4-6 times a day. (DME) Dexcom G6 Sensor Device See Rx Instructions .Route Qty: 9 3RF Rx Instructions: Change every 10 days. (DME) Dexcom G6 Transmitter Device See Rx Instructions .Route Qty: 3 3RF Rx Instructions: Change every 90 days. hydrocortisone [Procto-Med HC] 2.5 % cream with perineal applicator 1 applic [place] DAILY PRN (Reason: pain) 30 Days Qty: 30 5RF nitroglycerin [Nitrostat] 0.4 mg tablet, sublingual 0.4 mg SUBLINGUAL Q5M PRN (Reason: Chest Pain) Qty: 25 3RF metoclopramide HCl 5 mg tablet See Rx Instructions .ROUTE .COMPLEX Qty: 90 2RF Dose Instruction: TAKE 1 TABLET BY MOUTH THREE TIMES DAILY 15 MINUTES BEFORE MEALS FOR 4 WEEKS Rx Instructions: TAKE 1 TABLET BY MOUTH THREE TIMES DAILY 15 MINUTES BEFORE MEALS FOR 4 WEEKS ProAir HFA 90 mcg/actuation HFA aerosol inhaler 2 puff inhalation QID PRN (Reason: Shortness Of Breath) Qty: 8.5 4RF ondansetron HCl 4 mg tablet 4 mg PO Q6H PRN (Reason: Nausea) Qty: 30 2RF promethazine 25 mg tablet 12.5 mg PO BEDTIME Qty: 30 3RF Humulin R U-500 (Conc) Kwikpen 500 unit/mL (3 mL) insulin pen See Rx Instructions SUBCUT QAM Qty: 12 3RF Rx Instructions: 150 units before breakfast, 125 units before lunch, 100 units before dinner prazosin 1 mg capsule 1 mg PO BID 30 Days Qty: 60 5RF sumatriptan succinate [Imitrex] 100 mg tablet 100 mg PO PRN PRN (Reason: Migraine Headache) 30 Days Qty: 14 2RF Lyrica 300 mg capsule 300 mg PO BID@08,20 Qty: 60 4RF fluconazole [Diflucan] 150 mg tablet 150 mg PO Q3D 14 Days Qty: 5 0RF citalopram [Celexa] 40 mg tablet 40 mg PO DAILY@20 Qty: 30 7RF ropinirole 2 mg tablet 2 mg PO DAILY@20 Qty: 90 3RF lactulose 20 gram/30 mL solution 20 g PO BEDTIME PRN (Reason: Constipation) 90 Days Qty: 3000 0RF zolpidem 10 mg tablet 5 mg PO BEDTIME PRN (Reason: insomnia) Qty: 30 4RF metformin 500 mg tablet 500 mg PO BID 90 Days Qty: 180 1RF tizanidine 4 mg tablet 4 mg PO TID PRN (Reason: muscle spasticity) 30 Days Qty: 90 1RF potassium chloride 20 mEq tablet extended release 20 meq PO TID Qty: 60 0RF hydrochlorothiazide 25 mg tablet 25 mg PO DAILY Qty: 90 2RF pantoprazole 40 mg tablet,delayed release (DR/EC) 40 mg PO DAILY 90 Days Qty: 90 1RF multivitamin Tablet 1 tab PO DAILY@08 0RF Discharge Orders: Discharge ED (Routine); Ordered 06/10/22 Ordered By: Danuta Espinal Referrals: Yesica Bailey MD [Primary Care Provider] - Discharge Diet: Advance as tolerated Discharge Activity: Resume usual activity Patient Instructions: Swimmer's Ear (ED) Coding Level of Care Code ED Consumer Insights Intern for Shahlag Zander
== END 2022-06-10 21:32 | disposition home or self-care (01) ==
PROVIDERS: Emergency Provider Emergency Medicine; PCP Family Medicine
DX: H60.331 Swimmer's ear, right ear (principal); Z79.84 Long term (current) use of oral hypoglycemic drugs; Z79.4 Long term (current) use of insulin; E11.9 Type 2 diabetes mellitus without complications; I10 Essential (primary) hypertension; F17.210 Nicotine dependence, cigarettes, uncomplicated
CPT/HCPCS: 99283

== ENCOUNTER 2022-06-22 17:17 | Emergency (ER) | payer MEDICAID, SELFPAY ==
[2022-06-22 17:25] VITALS: BP 113/52; PULSE 111; RESP 18; TEMP 36.2; O2SAT 97; BMI 31.3
--- NOTE | 2022-06-22 18:00 | ED_ITS ---
HPI - General Adult General: Chief complaint: General Medical Stated complaint: r ear pain Time Seen by Provider: 06/22/22 17:45 Source: patient Mode of arrival: ambulatory Limitations: no limitations History of Present Illness: Patient is a 51-year-old female who presents to ED today with multiple complaints. She tells me she is having bilateral ear pain. She states she was seen at our facility a couple of weeks ago and diagnosed with a right otitis externa. She states she was placed on oral and otic antibiotics. She states since that time ear pain has now moved into her left ear as well. No drainage from the ears. No tinnitus or hearing loss. Patient states she has had some sinus congestion and symptoms that she attributes to allergies over the past month or so. She has been treating with Diphenhydramine and Claritin. States she has had a little bit of a dry cough as well. Her main concern seems to be all over pain . Patient tells me she is a chronic pain management patient and states she takes 15 mg oxycodone several times daily treatment of various pains including spinal stenosis, joint pains, fibromyalgia, etc. She tells me she took her last pain pill yesterday. She was supposed to have a refill ordered following some procedure but states the procedure got postponed due to elevated sugars hence she never got a refill. Onset (ago): day(s) Associated symptoms: Deny chest pain, dyspnea, headache(s), malaise, nausea, rash, palpitations, syncope or vomiting Review of Systems Const: Denies: fever(s), chills, body aches, fatigue or malaise Eyes: Denies: change in vision, blurry vision or photophobia ENMT: Reports: ear or mastoid pain, nasal congestion and sinus pain; Denies: throat pain, odynophagia, ear discharge, change in hearing or tinnitus Card: Denies: chest pain, palpitations, irregular heart rhythm, lightheadedness, syncope or dyspnea on exertion Resp: Reports: non-productive cough; Denies: dyspnea, productive cough, wheezing, pain on inspiration, hemoptysis or chest congestion GI: Denies: abdominal pain, nausea, vomiting, heartburn or diarrhea : Denies: flank pain or dysuria Musc: Reports: other (reports pain all over ) Skin/Breast: Denies: rash Neuro: Denies: headache(s), numbness in extremities, weakness in extremities or sensory changes PFSH ED PFSH: Medical History Acute hyperglycemia Acute pain of left knee Arthritis of hand, left Depression Diabetes Gastroparesis due to DM Hypertension Insomnia Lumbar post-laminectomy syndrome Pyelonephritis Sepsis Spinal stenosis, cervical region Ulnar nerve impingement Surgical History H/O carpal tunnel repair H/O esophagogastroduodenoscopy (05/23/21) H/O flexible sigmoidoscopy (05/23/21) H/O neck surgery H/O rotator cuff surgery H/O tubal ligation History of hysterectomy History of lumbar fusion S/P left knee arthroscopy Status post laparoscopic cholecystectomy Family History Other CAD (coronary artery disease) Cancer Stroke Denies family history of Anesthesia complication Bleeding disorder Social History Smoking and tobacco status: current some day smoker (STATES SMOKES VERY RARELY) cigarettes [ Other cigarette details: STATES VERY RARELY] Second hand smoke exposure: Yes Alcohol intake: former History of recent travel: No Female Reproductive History: Date of last menstrual period: 12/18/98 Physical Exam Const: COMMON NORMALS: no acute distress, patient oriented x3, no limitations and alert GENERAL APPEARANCE: cooperative ORIENTATION/CONSCIOUSNESS: Yes awake, Yes oriented to person, Yes oriented to place and Yes oriented to time HENMT: COMMON NORMALS: normocephalic, atraumatic, hearing grossly normal bilaterally, external ears normal, EAC's normal, Normal external nose present, Normal nasal mucous membranes and turbinates present and oropharynx normal HEAD & SCALP: normal to inspection, normocephalic and atraumatic FACE & SINUS: normal facial exam NOSE: Normal external nose present and Normal nasal mucous membranes and turbinates present EXTERNAL EAR: Yes external ears normal EXTERNAL AUDITORY CANAL: EAC's normal TYMPANIC MEMBRANE: TM abnormal (bilateral serous otitis) TM laterality: bilateral MOUTH: Normal oral and palatal mucosa present, lip normal and tongue normal TEETH & GINGIVA: Yes edentulous THROAT: posterior oropharynx normal Eye: GENERAL EYE: appearance normal, both eyes and all related structures Neck/C-Spine: COMMON NORMALS: full ROM, no lymphadenopathy and no meningeal signs Resp: COMMON NORMALS: normal respiratory effort and clear to auscultation b ilaterally AUSCULTATION: clear to auscultation bilaterally Cardio: COMMON NORMALS: regular rate and regular rhythm RATE: regular rate RHYTHM: regular rhythm Extremity: GENERAL: Yes normal exam except as noted Neuro: PHILL COMA SCALE: document [facility] findings Phill coma scale eye opening: Spontaneous Phill coma scale verbal response: Orientated Raccoon coma scale motor response: Obey commands Phill coma scale total score: 15 COMMON NORMALS: patient oriented x3 and CN's II-XII intact bilaterally SENSORIUM/O RIENTATION: Yes alert, Yes oriented to person, Yes oriented to place and Yes oriented to time MENINGEAL SIGNS: Yes no meningeal signs Skin: COMMON NORMALS: no rashes or lesions noted GENERAL SKIN EXAM: no rashes or lesions noted Course 2 Vital Signs: Vital signs: Vital Signs Temperature 97.2 F L 06/22/22 17:25 Pulse Rate 111 H 06/22/22 17:25 Respiratory Rate 18 06/22/22 17:25 Blood Pressure 113/52 06/22/22 17:25 Pulse Oximetry 97 06/22/22 17:25 MDM - General Adult Medical Decision Making Patient has bilateral serous otitis. It appears that the otitis externa that was diagnosed on last visit has cleared and no concern for malignant otitis externa. There is no need for more oral/otic antibiotics at this time. We will place her on intranasal corticosteroids. I would like to avoid oral steroids given her uncontrolled diabetes. We discussed COVID testing and CXR given her cough and upper respiratory symptoms however patient declines. Ultimately I think patient is just here for pain medication and she does admit this. She has an appointment with her PCP Dr. Bailey tomorrow but reportedly could not wait . I told her with her being under a pain management contract I am not willing to write her narcotic prescription from the ED and certainly not for her 15mg oxycodone that she takes multiple times daily. She needs to contact her pain management provider tomorrow. She was given two 10mg hydrocodone tabs that she can take when she gets home and through the night until she can speak with pain management tomorrow. Discharge Plan Discharge Patient Disposition: Home Clinical Impression: Chronic pain Qualifiers: Chronic pain type: other chronic pain Qualified Code(s): G89.29 - Other chronic pain Acute serous otitis media of both ears Qualifiers: Recurrence: non-recurrent Qualified Code(s): H65.03 - Acute serous otitis media, bilateral Condition: Stable Prescriptions: New Flonase Allergy Relief 50 mcg/actuation spray,suspension 1 spray intranasal BID 14 Days Qty: 16 0RF Rx Instructions: administer into each nostril No Action (DME) OneTouch Ultra Test Strip See Rx Instructions .Route Qty: 300 3RF Rx Instructions: to use in onetouch ultra meter TID to check blood sugar 90 supply bupivacaine (PF) 0.25 % (2.5 mg/mL) solution 1 ml intra-articular ONCE Qty: 1 0RF lidocaine (PF) 10 mg/mL (1 %) solution 1 ml intra-articular ONCE Qty: 1 0RF mupirocin 2 % ointment 1 applic topical TID Qty: 15 0RF (DME) Diabetic Shoes with 3 pairs of inserts See Rx Instructions .ROUTE .MEDSUPPLY Qty: 1 0RF Rx Instructions: As directed by [facility] oxymetazoline [Afrin (oxymetazoline)] 0.05 % spray,non-aerosol 2 spray INTRANASAL PRN PRN (Reason: Nasal Congestion) 0RF (DME) pen needle, diabetic [BD Ultra-Fine Mini Pen Needle] 31 gauge x 3/16 needle See Rx Instructions .ROUTE .MEDSUPPLY Qty: 50 3RF Rx Instructions: As directed fluconazole [Diflucan] 150 mg tablet 150 mg PO Q3D 15 Days Qty: 5 2RF oxycodone 30 mg tablet 15 mg PO TID PRN (Reason: pain) 0RF Rx Instructions: May fill early on 02/27 due to contamination of weekly pill cyber ops planner...[employer] (DME) Dexcom G6 Maintenance Trainer Misc See Rx Instructions .Route Qty: 1 0RF Rx Instructions: Check BS 4-6 times a day. (DME) Dexcom G6 Sensor Device See Rx Instructions .Route Qty: 9 3RF Rx Instructions: Change every 10 days. (DME) Dexcom G6 Transmitter Device See Rx Instructions .Route Qty: 3 3RF Rx Instructions: Change every 90 days. hydrocortisone [Procto-Med HC] 2.5 % cream with perineal applicator 1 applic [place] DAILY PRN (Reason: pain) 30 Days Qty: 30 5RF nitroglycerin [Nitrostat] 0.4 mg tablet, sublingual 0.4 mg SUBLINGUAL Q5M PRN (Reason: Chest Pain) Qty: 25 3RF metoclopramide HCl 5 mg tablet See Rx Instructions .ROUTE .COMPLEX Qty: 90 2RF Dose Instruction: TAKE 1 TABLET BY MOUTH THREE TIMES DAILY 15 MINUTES BEFORE MEALS FOR 4 WEEKS Rx Instructions: TAKE 1 TABLET BY MOUTH THREE TIMES DAILY 15 MINUTES BEFORE MEALS FOR 4 WEEKS ProAir HFA 90 mcg/actuation HFA aerosol inhaler 2 puff inhalation QID PRN (Reason: Shortness Of Breath) Qty: 8.5 4RF ondansetron HCl 4 mg tablet 4 mg PO Q6H PRN (Reason: Nausea) Qty: 30 2RF promethazine 25 mg tablet 12.5 mg PO BEDTIME Qty: 30 3RF Humulin R U-500 (Conc) Kwikpen 500 unit/mL (3 mL) insulin pen See Rx Instructions SUBCUT QAM Qty: 12 3RF Rx Instructions: 150 units before breakfast, 125 units before lunch, 100 units before dinner prazosin 1 mg capsule 1 mg PO BID 30 Days Qty: 60 5RF sumatriptan succinate [Imitrex] 100 mg tablet 100 mg PO PRN PRN (Reason: Migraine Headache) 30 Days Qty: 14 2RF Lyrica 300 mg capsule 300 mg PO BID@08,20 Qty: 60 4RF fluconazole [Diflucan] 150 mg tablet 150 mg PO Q3D 14 Days Qty: 5 0RF citalopram [Celexa] 40 mg tablet 40 mg PO DAILY@20 Qty: 30 7RF ropinirole 2 mg tablet 2 mg PO DAILY@20 Qty: 90 3RF lactulose 20 gram/30 mL solution 20 g PO BEDTIME PRN (Reason: Constipation) 90 Days Qty: 3000 0RF zolpidem 10 mg tablet 5 mg PO BEDTIME PRN (Reason: insomnia) Qty: 30 4RF metformin 500 mg tablet 500 mg PO BID 90 Days Qty: 180 1RF tizanidine 4 mg tablet 4 mg PO TID PRN (Reason: muscle spasticity) 30 Days Qty: 90 1RF potassium chloride 20 mEq tablet extended release 20 meq PO TID Qty: 60 0RF hydrochlorothiazide 25 mg tablet 25 mg PO DAILY Qty: 90 2RF pantoprazole 40 mg tablet,delayed release (DR/EC) 40 mg PO DAILY 90 Days Qty: 90 1RF furosemide 20 mg tablet 20 mg PO DAILY PRN (Reason: edema) Qty: 20 0RF multivitamin Tablet 1 tab PO DAILY@08 0RF Discharge Orders: Discharge ED (Routine); Ordered 06/22/22 Ordered By: Halie Worley Referrals: Yesica Bailey MD [Primary Care Provider] - Coding Level of Care Code ED Chief Operations Officer for Felicia Fermin
[2022-06-22] MEDS: HYDROcodone-acetaminophen 10-325 mg Tablet 2 TAB PO (18:08)
== END 2022-06-22 18:10 | disposition home or self-care (01) ==
PROVIDERS: Emergency Provider Physician Assistant; PCP Family Medicine
DX: H65.03 Acute serous otitis media, bilateral (principal); G89.29 Other chronic pain; Z79.84 Long term (current) use of oral hypoglycemic drugs; Z79.4 Long term (current) use of insulin; E11.9 Type 2 diabetes mellitus without complications; I10 Essential (primary) hypertension; F17.210 Nicotine dependence, cigarettes, uncomplicated
CPT/HCPCS: 99283

== ENCOUNTER → 2022-07-15 07:42 | Outpatient (BNVA) | payer MEDICAID, SELFPAY | PROVIDERS: PCP Family Medicine; Visit Provider Internal Medicine | DX: F17.210 Nicotine dependence, cigarettes, uncomplicated (principal); Z79.84 Long term (current) use of oral hypoglycemic drugs; E11.65 Type 2 diabetes mellitus with hyperglycemia; E11.40 Type 2 diabetes mellitus with diabetic neuropathy, unspecified; E11.59 Type 2 diabetes mellitus with other circulatory complications; I25.10 Atherosclerotic heart disease of native coronary artery without angina pectoris; E78.5 Hyperlipidemia, unspecified; I63.9 Cerebral infarction, unspecified; Z79.4 Long term (current) use of insulin | CPT/HCPCS: 99214; 99215 ==

== ENCOUNTER 2022-07-21 09:31 | Emergency (ER) | payer MEDICAID, SELFPAY ==
[2022-07-21 09:32] VITALS: BP 129/72; PULSE 93; RESP 21; TEMP 37.1; O2SAT 96; BMI 31.3
--- NOTE | 2022-07-21 09:35 | XRR_ITS ---
PROCEDURE INFORMATION: Exam: XR Left Hip Exam date and time: 07/21/2022 9:40 AM Age: 51 years old Clinical indication: Pain and injury or trauma; Fall; Blunt trauma (contusions or hematomas); Hip pain; Injury date: 07/21/22; Injury details: PT fell in hole in yard this morning. PT states that her left hip is hurting around the joint and her left foot and ankle are also in pain. PT states that her right shoulder is hurting as well. Prior surgery; Surgery type: L spine and c spine; Patient HX: HX of cervical cancer; Additional info: L hip pain TECHNIQUE: Imaging protocol: Radiologic exam of the Left hip. Views: 2 or 3 views hip with pelvis when performed. COMPARISON: CR XR hip LT 2-3V wo/w pel* [id number] 05/28/2022 12:05 PM FINDINGS: Bones/joints: No acute fracture or malalignment. Mild degenerative changes of the bilateral hips. Lumbar spinal fixation hardware is seen. Soft tissues: Unremarkable. XR/XR hip LT 2-3V wo/w pel* [id number] IMPRESSION: No acute fracture or malalignment.
--- NOTE | 2022-07-21 09:40 | ED_ITS ---
HPI - Fall General: Chief Complaint: Fall Stated Complaint: Left leg, Hip and knee injury Time Seen by Provider: 07/21/22 09:38 Source: patient Mode of arrival: wheelchair Limitations: no limitations History of Present Illness: Patient is a 51-year-old female who presents to ED today for evaluation following a fall. Patient tells me earlier this morning she accidentally stepped in a hole and fell. Patient states she is having pain to her right shoulder, her left hip, and left foot and ankle. She states she is not able to bear weight secondary to pain in the left leg. Denies striking her head or LOC. No neck/back pain. MD complaint: fall Onset (ago): hour(s) Fall from: standing Fall witnessed: no Place fall occurred: home Loss of consciousness: None Prolonged down time: no Symptoms prior to fall: none Context: tripped/slipped (stepped in a hole) Associated symptoms-after fall: Denies abdominal pain, chest pain, headache(s), lightheadedness or neck pain Review of Systems Eyes: Denies: change in vision Card: Denies: chest pain, palpitations, lightheadedness, syncope or pre- syncope Resp: Denies: dyspnea GI: Denies: abdominal pain Musc: Reports: extremity pain (L foot) and joint pain (R shoulder, L hip, L ankle); Denies: neck pain, back pain, extremity swelling or joint swelling Neuro: Denies: headache(s), numbness in extremities, weakness in extremities or sensory changes PFSH ED PFSH: Medical History Acute hyperglycemia Acute pain of left knee Arthritis of hand, left Depression Diabetes Gastroparesis due to DM Hypertension Insomnia Lumbar post-laminectomy syndrome Pyelonephritis Sepsis Spinal stenosis, cervical region Ulnar nerve impingement Surgical History H/O carpal tunnel repair H/O esophagogastroduodenoscopy (05/23/21) H/O flexible sigmoidoscopy (05/23/21) H/O neck surgery H/O rotator cuff surgery H/O tubal ligation History of hysterectomy History of lumbar fusion S/P left knee arthroscopy Status post laparoscopic cholecystectomy Family History Other CAD (coronary artery disease) Cancer Stroke Denies family history of Anesthesia complication Bleeding disorder Social History Smoking and tobacco status: current some day smoker (STATES SMOKES VERY RARELY) cigarettes [ Other cigarette details: STATES VERY RARELY] Second hand smoke exposure: Yes Alcohol intake: former History of recent travel: No Female Reproductive History: Date of last menstrual period: 12/18/98 Physical Exam Const: COMMON NORMALS: no acute distress, patient oriented x3, no limitations and alert GENERAL APPEARANCE: cooperative ORIENTATION/CONSCIOUSNESS: Yes awake, Yes oriented to person, Yes oriented to place and Yes oriented to time HENMT: COMMON NORMALS: normocephalic and atraumatic HEAD & SCALP: normal to inspection, normocephalic and atraumatic FACE & SINUS: normal facial exam Neck/C-Spine: COMMON NORMALS: full ROM CERVICAL SPINE: Yes cervical ROM normal, No pain with cervical ROM, No Cervical spine tenderness, No step off deformity and No Paracervical muscle tenderness Chest: COMMONS NORMALS: normal inspection of the chest and normal palpation of entire chest wall Resp: COMMON NORMALS: normal respiratory effort and clear to auscultation bilaterally AUSCULTATION: clear to auscultation bilaterally Cardio: COMMON NORMALS: regular rate and regular rhythm RATE: regular rate RHYTHM: regular rhythm Back/Pelvis: COMMON NORMALS: thoracic and lumbar spine normal to inspection, no thoracic nor lumbar tenderness and thoraco-lumbar ROM normal Extremity: COMMON NORMALS: capillary refill normal, no clubbing, cyanosis or edema and no pedal edema GENERAL: Yes normal exam except as noted RIGHT UPPER EXTREMITY: Yes shoulder joint (TTP anterior shoulder w/o bony deformity) Right shoulder: Yes Right shoulder joint ROM exam (slightly limited secondary to pain) and Yes Right shoulder joint neurovascular exam (normal) LEFT LOWER EXTREMITY: Yes hip joint (TTP posteriolateral hip) Left hip: Yes neurovascular exam (normal ), Yes ankle joint (TTP L lateral ankle and lateral foot; swelling noted) Left ankle: Yes neurovascular exam (normal) and Yes foot & digits (TTP proximal dorsal foot and lateral foot; swelling noted) Left foot and digits: Yes neurovascular exam (normal) Neuro: PHILL COMA SCALE: document [facility] findings [place] coma scale eye opening: Spontaneous [place] coma scale verbal response: Orientated [place] coma scale motor response: Obey commands Phill coma scale total score: 15 COMMON NORMALS: patient oriented x3, moves all extremities, no focal motor deficits and no sensory deficits noted SENSORIUM/ORIENTATION: Yes alert, Yes oriented to person, Yes oriented to place and Yes oriented to time Skin: TRAUMA: no lacerations or abrasions Course Vital Signs: Vital signs: Vital Signs Temperature 98.7 F 07/21/22 09:32 Pulse Rate 93 07/21/22 09:32 Respiratory Rate 21 H 07/21/22 09:32 Blood Pressure 129/72 07/21/22 09:32 Pulse Oximetry 96 07/21/22 09:32 Oxygen Delivery Me thod 07/21/22 09:32 MDM - Fall Medical Decision Making XR shoulder/hip neg. XR foot/ankle showing a small avulsion on one view from her cuboid but on another view looks like a small avulsion from navicular. Will splint/crutches/non-weightbearing/ice/elevation and will have her follow up with podiatry. She has oxycodone at home she takes normally and can use this for pain. Lab Data Radiology Impressions Hip/Pelvis X-Ray 07/21/22 09:35 IMPRESSION: No acute fracture or malalignment. Ankle X-Ray 07/21/22 09:46 IMPRESSION: Tiny acute appearing chip fractures off the lateral aspect of the cuboid and dorsal aspect of the navicular. Foot X-Ray 07/21/22 09:46 IMPRESSION: Tiny acute appearing chip fractures off the lateral aspect of the cuboid and dorsal aspect of the navicular. Shoulder X-Ray 07/21/22 09:46 IMPRESSION: No acute fracture or malalignment. Discharge Plan Discharge Patient Disposition: Home Clinical Impression: Closed fracture of cuboid of left foot Qualifiers: Encounter type: initial encounter Fracture alignment: nondisplaced Qualified Code(s): S92.215A - Nondisplaced fracture of cuboid bone of left foot, initial encounter for closed fracture Closed navicular fracture of left foot Qualifiers: Encounter type: initial encounter Fracture alignment: nondisplaced Qualified Code(s): S92.255A - Nondisplaced fracture of navicular [scaphoid] of left foot, initial encounter for closed fracture Condition: Stable Prescriptions: No Action (DME) [employer] Ultra Test Strip See Rx Instructions .Route Qty: 300 3RF Rx Instructions: to use in onetouch ultra meter TID to check blood sugar 90 supply bupivacaine (PF) 0.25 % (2.5 mg/mL) solution 1 ml intra-articular ONCE Qty: 1 0RF lidocaine (PF) 10 mg/mL (1 %) solution 1 ml intra-articular ONCE Qty: 1 0RF mupirocin 2 % ointment 1 applic topical TID Qty: 15 0RF (DME) Diabetic Shoes with 3 pairs of inserts See Rx Instructions .ROUTE .MEDSUPPLY Qty: 1 0RF Rx Instructions: As directed by [facility] oxymetazoline [Afrin (oxymetazoline)] 0.05 % spray,non-aerosol 2 spray INTRANASAL PRN PRN (Reason: Nasal Congestion) (DME) pen needle, diabetic [BD Ultra-Fine Mini Pen Needle] 31 gauge x 3/16 needle See Rx Instructions .ROUTE .MEDSUPPLY Qty: 50 3RF Rx Instructions: As directed fluconazole [Diflucan] 150 mg tablet 150 mg PO Q3D 15 Days Qty: 5 2RF oxycodone 30 mg tablet 15 mg PO TID PRN (Reason: pain) Rx Instructions: May fill early on 02/27 due to contamination of weekly pill network planner...[employer] ([facility]) Dexcom G6 [employer] Misc See Rx Instructions .Route Qty: 1 0RF Rx Instructions: Check BS 4-6 times a day. ([facility]) Dexcom G6 Sensor Device See Rx Instructions .Route Qty: 9 3RF Rx Instructions: Change every 10 days. ([facility]) Dexcom G6 Transmitter Device See Rx Instructions .Route Qty: 3 3RF Rx Instructions: Change every 90 days. Ciprodex 0.3-0.1 % drops,suspension 4 drp otic (ear) BID 7 Days Qty: 7.5 1RF hydrocortisone [Procto-Med HC] 2.5 % cream with perineal applicator 1 applic FL DAILY PRN (Reason: pain) 30 Days Qty: 30 5RF metoclopramide HCl 5 mg tablet See Rx Instructions .ROUTE .COMPLEX Qty: 90 2RF Dose Instruction: TAKE 1 TABLET BY MOUTH THREE TIMES DAILY 15 MINUTES BEFORE MEALS FOR 4 WEEKS Rx Instructions: TAKE 1 TABLET BY MOUTH THREE TIMES DAILY 15 MINUTES BEFORE MEALS FOR 4 WEEKS ProAir HFA 90 mcg/actuation HFA aerosol inhaler 2 puff inhalation QID PRN (Reason: Shortness Of Breath) Qty: 8.5 4RF fluconazole [Diflucan] 150 mg tablet 150 mg PO Q3D 14 Days Qty: 5 0RF citalopram [Celexa] 40 mg tablet 40 mg PO DAILY@20 Qty: 30 7RF lactulose 20 gram/30 mL solution 20 g PO BEDTIME PRN (Reason: Constipation) 90 Days Qty: 3000 0RF hydrochlorothiazide 25 mg tablet 25 mg PO DAILY Qty: 90 2RF furosemide 20 mg tablet 20 mg PO DAILY PRN (Reason: edema) Qty: 20 0RF Humulin R U-500 (Conc) Kwikpen 500 unit/mL (3 mL) insulin pen See Rx Instructions SUBCUT QAM 90 Days Qty: 72 3RF Rx Instructions: subcutaneously every morning; 150 units before breakfast, 125 units before lunch, 100 units before dinner metformin 500 mg tablet 500 mg PO BID 90 Days Qty: 180 1RF nitroglycerin [Nitrostat] 0.4 mg tablet, sublingual 0.4 mg SUBLINGUAL Q5M PRN (Reason: Chest Pain) Qty: 25 3RF ondansetron HCl 4 mg tablet 4 mg PO Q6H PRN (Reason: Nausea) Qty: 30 2RF tizanidine 4 mg tablet 4 mg PO TID PRN (Reason: muscle spasticity) 30 Days Qty: 90 1RF promethazine 25 mg tablet 12.5 mg PO BEDTIME Qty: 30 3RF ropinirole 2 mg tablet 2 mg PO DAILY@20 Qty: 90 3RF sumatriptan succinate [Imitrex] 100 mg tablet 100 mg PO PRN PRN (Reason: Migraine Headache) 30 Days Qty: 14 2RF pantoprazole 40 mg tablet,delayed release (DR/EC) 40 mg PO DAILY 90 Days Qty: 90 1RF potassium chloride 20 mEq tablet extended release 20 meq PO TID Qty: 60 0RF prazosin 1 mg capsule 1 mg PO BID 30 Days Qty: 60 5RF Lyrica 300 mg capsule 300 mg PO BID@08,20 Qty: 60 4RF zolpidem 10 mg tablet 5 mg PO BEDTIME PRN (Reason: insomnia) Qty: 30 4RF multivitamin Tablet 1 tab PO DAILY@08 Discharge Orders: Discharge ED (Routine); Ordered 07/21/22 Ordered By: Halie Worley Referrals: Yesica Bailey MD [Primary Care Provider] - Activity Restrictions/Additional Instructions: As we discussed case management should contact you today or tomorrow to set you up with your follow-up orthopedic/podiatry follow-up appointment. Coding Level of Care Code ED Form Setter [employer] Forms for Chg Fwd Exam Comprehensive
--- NOTE | 2022-07-21 09:46 | XRR_ITS ---
PROCEDURE INFORMATION: Exam: XR Left Foot Exam date and time: 07/21/2022 9:58 AM Age: 51 years old Clinical indication: Injury or trauma; Fall; Sprain or strain; Injury date: 07/21/22; Patient HX: PT fell in hole in yard this morning. PT states that her left hip is hurting around the joint and her left foot and ankle are also in pain. PT states that her right shoulder is hurting as well. ; Additional info: Fall/injury TECHNIQUE: Imaging protocol: Radiologic exam of the Left foot. Views: 3 or more views. COMPARISON: CR XR foot LT min 3V* [id number] 12/06/2021 1:17 PM FINDINGS: Bones/joints: Tiny acute appearing chip fractures off the lateral aspect of the cuboid and dorsal aspect of the navicular. Mild 1st MTP joint degenerative changes. Soft tissues: Normal. XR/XR foot LT min 3V* [id number] IMPRESSION: Tiny acute appearing chip fractures off the lateral aspect of the cuboid and dorsal aspect of the navicular.
--- NOTE | 2022-07-21 09:46 | XRR_ITS ---
PROCEDURE INFORMATION: Exam: XR Left Ankle Exam date and time: 07/21/2022 9:58 AM Age: 51 years old Clinical indication: Injury or trauma; Fall; Sprain or strain; Injury date: 07/21/22; Injury details: PT fell in hole in yard this morning. PT states that her left hip is hurting around the joint and her left foot and ankle are also in pain. PT states that her right shoulder is hurting as well. ; Additional info: Fall/injury TECHNIQUE: Imaging protocol: Radiologic exam of the Left ankle. Views: 3 or more views. COMPARISON: CR XR foot LT min 3V* [id number] 12/06/2021 1:17 PM FINDINGS: Bones/joints: Tiny acute appearing chip fractures off the lateral aspect of the cuboid and dorsal aspect of the navicular. Mild tibiotalar degenerative changes. Soft tissues: Normal. XR/XR ankle LT min 3V* [id number] IMPRESSION: Tiny acute appearing chip fractures off the lateral aspect of the cuboid and dorsal aspect of the navicular.
--- NOTE | 2022-07-21 09:46 | XRR_ITS ---
PROCEDURE INFORMATION: Exam: XR Right Shoulder Exam date and time: 07/21/2022 10:05 AM Age: 51 years old Clinical indication: Injury or trauma; Fall; Blunt trauma (contusions or hematomas); Injury date: 07/21/22; Injury details: PT fell in hole in yard this morning. PT states that her left hip is hurting around the joint and her left foot and ankle are also in pain. PT states that her right shoulder is hurting as well. TECHNIQUE: Imaging protocol: Radiologic exam of the Right shoulder. Views: 2 or more views. COMPARISON: CR Shoulder 2+ views RIGHT* [id number] 05/13/2016 10:46 AM FINDINGS: Bones/joints: No acute fracture or malalignment. Mild acromioclavicular and glenohumeral joint degenerative changes. Soft tissues: Normal. XR/XR shoulder RT min 2V* [id number] IMPRESSION: No acute fracture or malalignment.
[2022-07-21 10:57] VITALS: BP 172/88; PULSE 88; RESP 22; O2SAT 98
--- NOTE | 2022-07-22 09:07 | DCPLANNER ---
Addendum entered by Kesha Otto 07/25/22 11:41: Patient had a follow up appointment scheduled for 07.22.[address] Gill at ortho - patient did attend appointment. Original Note: cargo and ramp services manager had message to schedule a follow up appointment for patient with ortho. cargo and ramp services manager sent patients information to the front office staff at ortho. Patients information will be printed and reviewed. Clinic will call patient with appointment information.
== END 2022-07-21 10:58 | disposition home or self-care (01) ==
PROVIDERS: Emergency Provider Physician Assistant; PCP Family Medicine
DX: S92.215A Nondisplaced fracture of cuboid bone of left foot, initial encounter for closed fracture (principal); S92.255A Nondisplaced fracture of navicular [scaphoid] of left foot, initial encounter for closed fracture; Z79.4 Long term (current) use of insulin; Z79.84 Long term (current) use of oral hypoglycemic drugs; E11.9 Type 2 diabetes mellitus without complications; I10 Essential (primary) hypertension; F17.210 Nicotine dependence, cigarettes, uncomplicated; W19.XXXA Unspecified fall, initial encounter
CPT/HCPCS: 29515; 73030; 73502; 73610; 73630; 99283

== ENCOUNTER → 2022-07-22 13:02 | Outpatient (BNVA) | payer MEDICAID, SELFPAY | PROVIDERS: PCP Family Medicine; Referring Provider Physician Assistant; Visit Provider Podiatrist Foot & Ankle Surgery | DX: S92.255A Nondisplaced fracture of navicular [scaphoid] of left foot, initial encounter for closed fracture (principal); S92.215A Nondisplaced fracture of cuboid bone of left foot, initial encounter for closed fracture; W17.2XXA Fall into hole, initial encounter | CPT/HCPCS: 28450; 99204 ==

== ENCOUNTER 2022-07-22 14:24 | Outpatient (CLI) | payer SELFPAY | END 2022-07-22 14:25 | disposition home or self-care (01) | LOC: SPT 14:24 | PROVIDERS: PCP Family Medicine; Visit Provider Podiatrist Foot & Ankle Surgery | DX: Z46.89 Encounter for fitting and adjustment of other specified devices (principal); S92.255D Nondisplaced fracture of navicular [scaphoid] of left foot, subsequent encounter for fracture with routine healing; S92.215D Nondisplaced fracture of cuboid bone of left foot, subsequent encounter for fracture with routine healing; X58.XXXD Exposure to other specified factors, subsequent encounter | CPT/HCPCS: 97760; L4361 ==

== ENCOUNTER → 2022-07-31 08:18 | Outpatient (BNVA) | payer MEDICAID, SELFPAY | PROVIDERS: PCP Family Medicine; Visit Provider Student in an Organized Health Care Education/Training Program | DX: S83.242A Other tear of medial meniscus, current injury, left knee, initial encounter (principal); W19.XXXA Unspecified fall, initial encounter | CPT/HCPCS: 73560; 73565; 99203; 99204 ==

== ENCOUNTER → 2022-09-02 09:31 | Outpatient (BNVA) | payer MEDICAID, SELFPAY | PROVIDERS: PCP Family Medicine; Visit Provider Podiatrist Foot & Ankle Surgery | DX: E11.40 Type 2 diabetes mellitus with diabetic neuropathy, unspecified (principal); E11.65 Type 2 diabetes mellitus with hyperglycemia; E11.59 Type 2 diabetes mellitus with other circulatory complications; E78.5 Hyperlipidemia, unspecified; I25.10 Atherosclerotic heart disease of native coronary artery without angina pectoris; I63.9 Cerebral infarction, unspecified; Z79.4 Long term (current) use of insulin; F17.210 Nicotine dependence, cigarettes, uncomplicated; Z79.84 Long term (current) use of oral hypoglycemic drugs; X58.XXXA Exposure to other specified factors, initial encounter; S92.255A Nondisplaced fracture of navicular [scaphoid] of left foot, initial encounter for closed fracture; S92.215A Nondisplaced fracture of cuboid bone of left foot, initial encounter for closed fracture | CPT/HCPCS: 99213; 99214 ==

== ENCOUNTER → 2022-09-03 11:01 | Outpatient (BNVA) | payer MEDICAID, SELFPAY | PROVIDERS: PCP Family Medicine; Visit Provider Family Medicine | DX: E11.9 Type 2 diabetes mellitus without complications (principal); I10 Essential (primary) hypertension; G47.00 Insomnia, unspecified; G25.81 Restless legs syndrome; E11.65 Type 2 diabetes mellitus with hyperglycemia; Z79.4 Long term (current) use of insulin; E11.40 Type 2 diabetes mellitus with diabetic neuropathy, unspecified | CPT/HCPCS: 80053; 83036; 85025 ==

== ENCOUNTER 2022-09-16 06:54 | Outpatient (CLI) | payer MEDICAID, SELFPAY ==
--- NOTE | 2022-09-16 07:15 | MR_ITS ---
WS: [id number] MRI LEFT KNEE HISTORY: Chronic knee pain, multiple falls. Medial side pain. COMPARISON: 12/14/2014 Anterior cruciate ligament: Intact. Posterior cruciate ligament: Intact. Medial collateral ligament: Intact. Posterior lateral corner structures: Intact. Medial menisci: Very mild increased signal in the posterior horn does not extend to an articular surf gary. Consistent with intrasubstance degeneration. Similar to the prior examination. Anterior horn is negative. Lateral meniscus: Intact. Normal signal, size and shape. Extensor mechanism: Distal quadriceps tendon and patellar tendons are intact. Fluid and soft tissue: Small suprapatellar joint effusion with slight increase in volume since 2014. No Russell's cyst. Osseous and articular structures: Patellofemoral compartment: Mild progression of chondromalacia involving the lateral patellar facet a nd the patellar eminence. Moderate chondromalacia with new subchondral cystic change. Medial compartment: Mild narrowing of the medial compartment. Mild chondromalacia involving the weigh tbearing surface of the femoral condyle. Small cartilaginous defects but no full-thickness defect and no marrow edema. Lateral compartment: Mild narrowing of the lateral compartment. Cartilaginous defects along the weigh tbearing surface of the femoral condyle and tibial plateau. There is a very small but near full thick ness cartilage defect along the femoral condyle weightbearing surface. Chondromalacia has increased s brook the prior study. MR/MR knee LT wo con* [id number] IMPRESSION: 1. Mild progression of chondromalacia within all 3 compartments since 2014. Th e most significant progression in the lateral compartment along the weightbeari ng surface of the femoral condyle and tibial plateau. 2. No fracture. 3. No meniscal tear. 4. Small suprapatellar joint effusion has progressed since 2014.
== END 2022-09-16 06:55 | disposition home or self-care (01) ==
LOC: RAD 06:54
PROVIDERS: PCP Family Medicine; Visit Provider Nurse Practitioner Family
DX: G89.29 Other chronic pain (principal); W19.XXXA Unspecified fall, initial encounter; M94.262 Chondromalacia, left knee; M25.462 Effusion, left knee
CPT/HCPCS: 73721

== ENCOUNTER → 2022-09-18 07:57 | Outpatient (BNVA) | payer MEDICAID, SELFPAY | PROVIDERS: PCP Family Medicine; Visit Provider Student in an Organized Health Care Education/Training Program | DX: M67.52 Plica syndrome, left knee (principal); M94.262 Chondromalacia, left knee | CPT/HCPCS: 20610; 99213; J3301 ==

== ENCOUNTER 2022-10-06 09:26 | Emergency (ER) | payer MEDICAID, SELFPAY ==
[2022-10-06 09:50] VITALS: BP 171/101; PULSE 83; RESP 20; TEMP 36.2; O2SAT 97
--- NOTE | 2022-10-06 10:32 | XR_ITS ---
WS: [id number] KUB, AP view, 10/06/2022 Clinical Data: constipation Comparison: KUB, 10/12/2020 Findings: No abnormal intraabdominal masses or calcifications are seen. There is no dilatated small bowel or ev idence of obstruction. There is a large amount of fecal material throughout the colon. There are clips in the right upper qu adrant from a cholecystectomy. The patient had a posterior lumbar fusion at L4-L5. XR/XR KUB [id number] Impression: Large amount of fecal material in the colon.
--- NOTE | 2022-10-06 10:32 | W.ED.ABDPA2 ---
HPI - Abdominal Pain General: Chief Complaint: Abdominal Pain Stated Complaint: stomach issues Time Seen by Provider: 10/06/22 10:14 Source: patient Mode of arrival: ambulatory History of Present Illness: 51-year-old female presents emergency room complaining of right upper quadrant abdominal pain.'s been going on for a week. She previously had issues with constipation. She related constipation during episode of sepsis however looking back at the records she had a pyelonephritis that resulted in sepsis and secondarily she was constipated. She has previously had a cholecystectomy as well as a hysterectomy. She denies any dysuria urgency or frequency at this time she has been very nauseous no vomiting. No hematochezia melena hematemesis or coffee-ground emesis. MD elicited complaint: abdominal pain Pertinent past history: constipation Onset (ago): week(s) (1) Pain Consistency: constant Location: RUQ Severity: mild Quality: cramping Radiation: none Migration to: no migration Exacerbating factors: eating Relieving factors: nothing Associated Symptoms: Reports constipation and nausea; Denies anorexia, belching, bloating, change in bowel habits, change in stool character, chills, coffee ground emesis, GI cramping, diarrhea, dyspepsia, dysuria, excessive flatus, fever(s), heartburn, hematochezia, hematuria, hematemesis, fecal incontinence, loose stools, melena, poor appetite, syncope and vomiting Related Data: Date of Last Menstrual Period: 12/18/98 Review of Systems Const: Reports: fatigue; Denies: fever(s), chills or malaise ENMT: Denies: throat pain, ear or mastoid pain, nasal discharge or nasal congestion Card: Denies: syncope Resp: Denies: dyspnea, productive cough or non-productive cough GI: Reports: abdominal pain, nausea and constipation; Denies: vomiting, hematemesis, coffee ground emesis, heartburn, diarrhea, bloating, GI cramping, belching, excessive flatus, fecal incontinence, change in bowel habits, change in stool character, hematochezia or melena : Denies: flank pain, difficulty voiding, dysuria, urinary frequency, urinary urgency or hematuria Skin/Breast: Denies: rash or pruritus PFSH ED PFSH: Medical History Acute hyperglycemia Acute pain of left knee Arthritis of hand, left Chondromalacia, knee Depression Diabetes Gastroparesis due to DM Hypertension Insomnia Lumbar post-laminectomy syndrome Medial meniscus tear Plica of knee Pyelonephritis Sepsis Spinal stenosis, cervical region Ulnar nerve impingement Surgical History H/O carpal tunnel repair H/O esophagogastroduodenoscopy (05/23/21) H/O flexible sigmoidoscopy (05/23/21) H/O neck surgery H/O rotator cuff surgery H/O tubal ligation History of hysterectomy History of lumbar fusion S/P left knee arthroscopy Status post laparoscopic cholecystectomy Family History Other CAD (coronary artery disease) Cancer Stroke Denies family history of Anesthesia complication Bleeding disorder Social History Smoking and tobacco status: current every day smoker cigarettes [ Other cigarette details: STATES VERY RARELY] Second hand smoke exposure: Yes Alcohol intake: former History of recent travel: No Female Reproductive History: Date of last menstrual period: 12/18/98 Physical Exam Const: GENERAL APPEARANCE: cooperative and comfortable ORIENTATION/CONSCIOUSNESS: Yes awake, Yes oriented to person, Yes oriented to place and Yes oriented to time HENMT: COMMON NORMALS: normocephalic, atraumatic and hearing grossly normal bilaterally HEAD & SCALP: normocephalic and atraumatic Resp: COMMON NORMALS: normal respiratory effort, No retractions, No use of accessory muscles and clear to auscultation bilaterally AUSCULTATION: clear to auscultation bilaterally Cardio: COMMON NORMALS: regular rate, regular rhythm and No murmurs present (Cardio) RATE: regular rate RHYTHM: regular rhythm GI: COMMON NORMALS: Soft to palpation and No hepatosplenomegaly present AUSCULTATION: Yes normoactive bowel sounds PALPATION: Yes Soft to palpation, No Tenderness to palpation present (GI), No Guarding due to palpation present (GI) and Yes No hepatosplenomegaly present Extremity: COMMON NORMALS: normal to inspection, capillary refill normal, no clubbing, cyanosis or edema, no calf tenderness and no pedal edema Neuro: SENSORIUM/ORIENTATION: Yes oriented to person, Yes oriented to place and Yes oriented to time Skin: COMMON NORMALS: no rashes or lesions noted GENERAL SKIN EXAM: no rashes or lesions noted Course Vital Signs: Vital signs: Vital Signs Temperature 97.2 F L 10/06/22 09:50 Pulse Rate 83 10/06/22 09:50 Respiratory Rate 20 H 10/06/22 09:50 Blood Pressure 133/89 10/06/22 12:30 Pulse Oximetry 98 10/06/22 12:01 MDM - Abdominal Pain Medical Decision Making Labs and imaging reviewed. No signs of acute abdomen do not believe she has an acute appendicitis or cholecystitis based on her exam and labs and history. Imaging points to constipation. Use lactulose every 2 hours until desired results achieved. Start MiraLAX 17 g in liquid daily can increase if not adequate to regulate bowels. Medical Records I reviewed the patient's medical records. Lab Data I reviewed the patient's lab results. 10/06/22 10:53 10/06/22 10:53 Labs/Radiology: Radiology Impressions KUB X-Ray 10/06/22 10:32 Impression: Large amount of fecal material in the colon. Laboratory Results WBC 9.1 10^3/uL (4.0-10.0) 10/06/22 10:53 RBC 4.67 10^6/uL (4.1-5.3) 10/06/22 10:53 Hgb 13.7 g/dL (11.5-15.3) 10/06/22 10:53 Hct 42.3 % (37.0-47.0) 10/06/22 10:53 MCV 90.6 fl (81-99) 10/06/22 10:53 MCH 29.3 pg (28.0-34.0) 10/06/22 10:53 MCHC 32.4 g/dL (30.0-36.0) 10/06/22 10:53 RDW 13.5 % (12.1-15.1) 10/06/22 10:53 Plt Count 156 10^3/cmm (130-400) 10/06/22 10:53 MPV 10.8 fL (7.4-10.4) H 10/06/22 10:53 Neut % (Auto) 54.4 % 10/06/22 10:53 Lymph % (Auto) 38.7 % 10/06/22 10:53 [place] % (Auto) 4.5 % 10/06/22 10:53 Eos % (Auto) 1.2 % 10/06/22 10:53 Baso % (Auto) 0.5 % 10/06/22 10:53 Neut # (Auto) 4.97 10^3/uL (1.8-7.7) 10/06/22 10:53 Lymph # (Auto) 3.5 10^3/uL (0.8-4.8) 10/06/22 10:53 [place] # (Auto) 0.4 10^3/uL (0.2-0.9) 10/06/22 10:53 Eos # (Auto) 0.1 10^3/uL (0.0-0.8) 10/06/22 10:53 Baso # (Auto) 0.1 10^3/uL (0.0-0.1) 10/06/22 10:53 Nucleated RBC % (auto) 0 % 10/06/22 10:53 Nucleated RBCs # 0.0 /100WBC 10/06/22 10:53 Sodium 132 mmol/L (136-145) L 10/06/22 10:53 Potassium 4.1 mmol/L (3.5-5.1) 10/06/22 10:53 Chloride 97 mmol/L (98-107) L 10/06/22 10:53 Carbon Dioxide 26 mmol/L (22-29) 10/06/22 10:53 Anion Gap 13.1 (5-19) 10/06/22 10:53 BUN 14 mg/dL (6-20) 10/06/22 10:53 Creatinine 0.7 mg/dL (0.5-0.9) 10/06/22 10:53 GFR Calculation 87.9 mL/min (90-130) L 10/06/22 10:53 Glucose 187 mg/dL (65-115) H 10/06/22 10:53 POC Glucose 211 mg/dL (70-110) H 10/06/22 10:39 Calculated Osmolality 279 mOsm/kg (285-295) L 10/06/22 10:53 Calcium 9.5 mg/dL (8.5-10.5) 10/06/22 10:53 Total Bilirubin 0.3 mg/dL (0.15-1.2) 10/06/22 10:53 AST 13 U/L (0-32) 10/06/22 10:53 ALT 14 U/L (0-33) 10/06/22 10:53 Alkaline Phosphatase 140 U/L (35-105) H 10/06/22 10:53 Total Protein 7.5 g/dL (6.6-8.7) 10/06/22 10:53 Albumin 4.0 g/dL (3.5-5.2) 10/06/22 10:53 Globulin 3.5 g/dL (1.3-4.6) 10/06/22 10:53 Lipase 43 U/L (13-60) 10/06/22 10:53 Urine Color Yellow (Yellow) 10/06/22 10:40 Urine Appearance Clear (CLEAR) 10/06/22 10:40 Urine pH 5 (5-7) 10/06/22 10:40 Ur Specific [place] 1.020 (1.005-1.030) 10/06/22 10:40 Urine Protein Neg (Negative) 10/06/22 10:40 Urine Glucose (UA) Norm (Normal) 10/06/22 10:40 Urine Ketones Negative (Negative) 10/06/22 10:40 Urine Blood Neg (Negative) 10/06/22 10:40 Urine Nitrate Negative (Negative) 10/06/22 10:40 Urine Bilirubin Neg (Negative) 10/06/22 10:40 Urine Urobilinogen Norm mg/dL (Negative) 10/06/22 10:40 Ur Leukocyte Esterase Negative (Negative) 10/06/22 10:40 Discharge Plan Discharge Patient Disposition: Home Clinical Impression: Constipation Condition: Stable Prescriptions: No Action (DME) OneTouch Ultra Test Strip See Rx Instructions .Route Qty: 300 3RF Rx Instructions: to use in onetouch ultra meter TID to check blood sugar 90 supply (DME) Diabetic Shoes with 3 pairs of inserts See Rx Instructions .ROUTE .MEDSUPPLY Qty: 1 0RF Rx Instructions: As directed by [facility] oxymetazoline [Afrin (oxymetazoline)] 0.05 % spray,non-aerosol 2 spray INTRANASAL PRN PRN (Reason: Nasal Congestion) (DME) pen needle, diabetic [BD Ultra-Fine Mini Pen Needle] 31 gauge x 3/16 needle See Rx Instructions .ROUTE .MEDSUPPLY Qty: 50 3RF Rx Instructions: As directed (DME) Dexcom G6 Property Disposal Manager Misc See Rx Instructions .Route Qty: 1 0RF Rx Instructions: Check BS 4-6 times a day. (DME) Dexcom G6 Sensor Device See Rx Instructions .Route Qty: 9 3RF Rx Instructions: Change every 10 days. (DME) Dexcom G6 Transmitter Device See Rx Instructions .Route Qty: 3 3RF Rx Instructions: Change every 90 days. (DME) Dexcom G6 Transmitter Device See Rx Instructions .Route Qty: 1 0RF Rx Instructions: [place] [place] CAM boot See Rx Instructions .Route .MEDSUPPLY Qty: 1 0RF Rx Instructions: As directed [place] Walker See Rx Instructions .Route .MEDSUPPLY Qty: 1 0RF Rx Instructions: As directed citalopram [Celexa] 40 mg tablet 40 mg PO DAILY@20 Qty: 30 7RF Humulin R U-500 (Conc) Kwikpen 500 unit/mL (3 mL) insulin pen See Rx Instructions SUBCUT QAM 90 Days Qty: 72 3RF Rx Instructions: 150 units before breakfast and 100 units before lunch metformin 500 mg tablet 500 mg PO BID 90 Days Qty: 180 1RF nitroglycerin [Nitrostat] 0.4 mg tablet, sublingual 0.4 mg SUBLINGUAL Q5M PRN (Reason: Chest Pain) Qty: 25 3RF ondansetron HCl 4 mg tablet 4 mg PO Q6H PRN (Reason: Nausea) Qty: 30 2RF tizanidine 4 mg tablet 4 mg PO TID PRN (Reason: muscle spasticity) 30 Days Qty: 90 1RF promethazine 25 mg tablet 12.5 mg PO BEDTIME Qty: 30 3RF sumatriptan succinate [Imitrex] 100 mg tablet 100 mg PO PRN PRN (Reason: Migraine Headache) 30 Days Qty: 14 2RF pantoprazole 40 mg tablet,delayed release (DR/EC) 40 mg PO DAILY 90 Days Qty: 90 1RF prazosin 1 mg capsule 1 mg PO BID 30 Days Qty: 60 5RF Lyrica 300 mg capsule 300 mg PO BID@08,20 Qty: 60 4RF oxycodone 10 mg tablet 10 mg PO Q6H MDD 4 tabs PRN (Reason: pain) 30 Days Qty: 120 0RF ropinirole 2 mg tablet 2 mg PO BID Qty: 180 3RF furosemide 20 mg tablet 20 mg PO DAILY PRN (Reason: edema) Qty: 30 4RF ProAir HFA 90 mcg/actuation HFA aerosol inhaler 2 puff inhalation QID PRN (Reason: Shortness Of Breath) Qty: 8.5 4RF lactulose 20 gram/30 mL solution 20 g PO BEDTIME PRN (Reason: Constipation) 90 Days Qty: 3000 0RF multivitamin Tablet 1 tab PO DAILY@08 zolpidem 10 mg tablet 10 mg PO BEDTIME potassium chloride 20 mEq tablet extended release 20 meq PO BID Discharge Orders: Discharge ED (Routine); Ordered 10/06/22 Ordered By: Mukul Eaton Referrals: Yesica Bailey MD [Primary Care Provider] - Discharge Diet: Clear Liquid Discharge Activity: Increase activity as tolerated Patient Instructions: Constipation (ED), Opioid Safety, Pain Management Activity Restrictions/Additional Instructions: Use lactulose every 2 hours until adequate results achieved. Recommend also starting MiraLAX [id number] 17 g powder and liquid Coding Level of Care Code ED Chef Under for Chg Fwd Exam Detailed
[2022-10-06 10:43] LABS: Glucose Point of Care 211 mg/dL (70-110)
[2022-10-06] MEDS: lidocaine 2% viscous 15 ML, aluminum-mag hydrox-simethicon 30 ML, sucralfate oral liq 1 GM PO (11:00)
[2022-10-06 11:01] LABS: Basophils # 0.1 10^3/uL (0.0-0.1); Basophils % 0.5 %; Eosinophils # 0.1 10^3/uL (0.0-0.8); Eosinophils % 1.2 %; Hematocrit 42.3 % (37.0-47.0); Hemoglobin 13.7 g/dL (11.5-15.3); Lymphocytes # 3.5 10^3/uL (0.8-4.8); Lymphocytes % 38.7 %; Mean Corpuscular HGB Conc 32.4 g/dL (30.0-36.0); Mean Corpuscular Hemoglobin 29.3 pg (28.0-34.0); Mean Corpuscular Volume 90.6 fl (81-99); Mean Platelet Volume 10.8 fL (7.4-10.4); Monocytes # 0.4 10^3/uL (0.2-0.9); Monocytes % 4.5 %; Neutrophils # 4.97 10^3/uL (1.8-7.7); Neutrophils % 54.4 %; Nucleated Red Blood Cells % 0 %; Platelet Count 156 10^3/cmm (130-400); Red Blood Count 4.67 10^6/uL (4.1-5.3); Red Cell Distribution Width 13.5 % (12.1-15.1); White Blood Count 9.1 10^3/uL (4.0-10.0)
[2022-10-06 11:27] LABS: Alanine Aminotransferase 14 U/L (0-33); Alkaline Phosphatase 140 U/L (35-105); Anion Gap 13.1 (5-19); Aspartate Amino Transferase 13 U/L (0-32); Blood Urea Nitrogen 14 mg/dL (6-20); Calcium 9.5 mg/dL (8.5-10.5); Carbon Dioxide 26 mmol/L (22-29); Chloride 97 mmol/L (98-107); Globulin 3.5 g/dL (1.3-4.6); Glomerular Filtration Rate 87.9 mL/min (90-130); Glucose 187 mg/dL (65-115); Lipase 43 U/L (13-60); Osmolality Calculated 279 mOsm/kg (285-295); Potassium 4.1 mmol/L (3.5-5.1); Sodium 132 mmol/L (136-145); Total Bilirubin 0.3 mg/dL (0.15-1.2); Total Protein 7.5 g/dL (6.6-8.7)
[2022-10-06 11:29] VITALS: BP 143/85
[2022-10-06 11:30] VITALS: BP 143/85; O2SAT 97
[2022-10-06] MEDS: ondansetron 2 mg/ML SDV 2 mL 4 MG IVP (11:39)
[2022-10-06] MEDS: sodium chloride 0.9% 1,000 ML 999 ML IV (11:39)
--- NOTE | 2022-10-06 11:40 | PC.NURSE ---
IV fluids and medications given. Patient states that she is having upper abdominal pain 07/09
[2022-10-06 11:46] LABS: Add Urine Microscopic? NO; Charge for UA Resulting for Rev
[2022-10-06 11:54] LABS: Bilirubin Urine Neg (Negative); Blood Urine Neg (Negative); Glucose Urine UA Norm (Normal); Ketones Urine Negative (Negative); Leukocyte Esterase Urine Negative (Negative); Nitrate Urine Negative (Negative); Protein Urine Neg (Negative); Urine Appearance Clear (CLEAR); Urine Color Yellow (Yellow); Urobilinogen Urine Norm (Negative); pH Urine 5 (5-7)
[2022-10-06 12:01] VITALS: BP 133/89; O2SAT 98
[2022-10-06 12:30] VITALS: BP 133/89
== END 2022-10-06 12:51 | disposition home or self-care (01) ==
PROVIDERS: Emergency Provider Family Medicine; PCP Family Medicine
DX: K59.00 Constipation, unspecified (principal); Z79.4 Long term (current) use of insulin; Z79.84 Long term (current) use of oral hypoglycemic drugs; E11.9 Type 2 diabetes mellitus without complications; I10 Essential (primary) hypertension; F17.210 Nicotine dependence, cigarettes, uncomplicated; M67.52 Plica syndrome, left knee
CPT/HCPCS: 36415; 36416; 74018; 80053; 81003; 82962; 83690; 85025; 96361; 96374; 99214; 99284; J2405; J7030

== ENCOUNTER 2022-11-05 05:42 | Day surgery (SDC) | payer MEDICAID, SELFPAY ==
[2022-11-04 10:00] VITALS: BMI 36.0
[2022-11-05] VITALS (10 sets, daily range): BP systolic 123–165; BP diastolic 80–103; PULSE 74–101; RESP 13–18; TEMP 36.1–37.1; O2SAT 93–99
[2022-11-05 06:16] LABS: Glucose Point of Care 289 mg/dL (70-110)
[2022-11-05] MEDS: sodium chloride 0.9% 1,000 ML 30 ML IV (06:16)
[2022-11-05] MEDS: scopolamine 1.5 Patch 1 PATCH TRANSDERMA (06:30)
--- NOTE | 2022-11-05 06:31 | ANES.PREANE2 ---
Pre-Anesthetic Assessment Height/Weight: Height 1.7 m Weight 104.326 kg Temp Pulse Resp BP Pulse Ox O2 Del Method 97 F L 101 H 18 165/93 97 11/05/22 06:04 11/05/22 06:04 11/05/22 06:04 11/05/22 06:04 11/05/22 06:04 11/05/22 06:05 Preop Diagnosis: Left knee medial plica Operation Date: 11/05/22 07:00 Proposed Procedures p left knee diagnostic and arthroscopy:30836 M94.269(Left) - Shahriar Karolina, Familial anesthetic complications: N/V Was Beta Adrienne taken within 24 hours: N/A Was Clonidine taken within 24 hours: N/A Last intake: Intake Last Liquid Date 11/04/22 Last Liquid Time 19:00 Last Solid Date 11/04/22 Last Solid Time 15:00 Social Tobacco (Social) and No alcohol Exam alert, oriented x 3, clear to auscultation bilaterally and regular rate & rhythm Airway Submandibular: within normal limits Cervical ROM: Other (Decreased ROM, 3 cervical surgeries) Mallampati: Class III Dentition: false History/ROS No significant history except as noted and No significant complaints Pulmonary Asthma, Chronic Obstructive Pulmonary Disease, Exertional Dyspnea and Sleep Apnea CV/HEM Arrythmia (PVCs), Coronary Artery Disease, Congestive Heart Failure and Myocardial Infarction (15 years ago, no intervention) EF 55-60 Used nitro a few times in the last 2 years Urinary Tract Infection History of kidney stones Hepatic None reported GI Gastroesophageal Reflux Disease (Well controlled with meds, none this AM) and Peptic Ulcer Disease Metabolic Diabetes Mellitus and Morbid Obesity [facility] Fibromyalgia, Lower Back Pain and Osteoarthritis/DJD Neuropsych Anxiety, Cerebrovascular Accident (9 years ago, left sided weakness. States she has several TIAs since.), Depression, Neuropathy and Transient Ischemic Attack Anesthetic Plan ASA status: 4 Anesthesia: Anesthesia Evaluation and General Medications/Allergies Home Medications Medication Instructions Recorded Confirmed Last Taken Type oxymetazoline 0.05 % nasal spray 2 spray intranasal PRN PRN Nasal 12/02/19 11/04/22 11/04/22 History (Afrin (oxymetazoline)) Congestion pen needle, diabetic 31 gauge x #50 ea 12/10/20 10/06/22 Unknown Rx 3/16 (BD Ultra-Fine Mini Pen Needle) multivitamin 1 tab PO DAILY@08 06/09/21 11/04/22 11/04/22 History blood sugar diagnostic (OneTouch #300 ea 12/04/21 10/06/22 Unknown Rx Ultra Test strips) Diabetic Shoes with 3 pairs of #1 ea 12/06/21 10/06/22 Unknown Rx inserts 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 meter,continuous #1 ea 06/05/22 10/06/22 Unknown Rx (Dexcom G6 Operational Risk Analyst misc) 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 sensor (Dexcom G6 #9 ea 06/05/22 10/06/22 Unknown Rx Sensor device) 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 transmitter (Dexcom #3 ea 06/05/22 10/06/22 Unknown Rx G6 Transmitter device) insulin regular hum U-500 conc 500 See Rx Instructions SUBCUT QAM 90 07/03/22 11/04/22 11/04/22 Rx unit/mL(3 mL) subcut pen (Humulin days #72 mL R U-500 (Conc) Insulin Kwikpen) metformin 500 mg tablet 500 mg PO BID 90 days #180 tabs 07/08/22 11/04/22 11/04/22 Rx nitroglycerin 0.4 mg sublingual 0.4 mg sublingual Q5M PRN Chest 07/08/22 11/04/22 Unknown Rx tablet (Nitrostat) Pain #25 tabs ondansetron HCl 4 mg tablet 4 mg PO Q6H PRN Nausea #30 tabs 07/08/22 11/04/22 11/03/22 Rx pantoprazole 40 mg tablet,delayed 40 mg PO DAILY 90 days #90 tabs 07/08/22 11/04/22 11/04/22 Rx release prazosin 1 mg capsule 1 mg PO BID 30 days #60 caps 07/08/22 11/04/22 11/04/22 Rx pregabalin 300 mg capsule (Lyrica) 300 mg PO BID@08,20 #60 caps 07/08/22 11/04/22 11/04/22 Rx promethazine 25 mg tablet 12.5 mg PO BEDTIME #30 tabs 07/08/22 11/04/22 11/04/22 Rx sumatriptan succinate 100 mg 100 mg PO PRN PRN Migraine 07/08/22 11/04/22 11/03/22 Rx tablet (Imitrex) Headache 30 days #14 tabs CAM boot #1 ea 07/22/22 10/06/22 Unknown Rx Walker #1 ea 07/22/22 10/06/22 Unknown Rx oxycodone 10 mg tablet 10 mg PO Q6H PRN pain 30 days #120 08/19/22 11/04/22 11/04/22 Rx tabs 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 transmitter (Dexcom #1 ea 09/02/22 10/06/22 Unknown Rx G6 Transmitter device) furosemide 20 mg tablet 20 mg PO DAILY PRN edema #30 tabs 09/15/22 11/04/22 10/21/22 Rx ropinirole 2 mg tablet 2 mg PO BID #180 tabs 09/15/22 11/04/22 11/04/22 Rx albuterol sulfate 90 mcg/actuation 2 puff inhalation QID PRN 09/16/22 11/04/22 11/04/22 Rx aerosol inhaler (ProAir HFA) Shortness Of Breath #8.5 grams potassium chloride 20 mEq 20 meq PO BID 10/06/22 11/04/22 11/03/22 History tablet,extended release zolpidem 10 mg tablet 10 mg PO BEDTIME 10/06/22 11/04/22 11/04/22 History lactulose 20 gram/30 mL oral 20 g (30 mL) PO BEDTIME PRN 10/09/22 11/04/22 11/03/22 Rx solution Constipation 90 days #3,000 mL fluconazole 150 mg tablet 150 mg PO Q3D 2 weeks #5 tabs 10/21/22 11/04/22 11/04/22 Rx (Diflucan) tizanidine 4 mg tablet 4 mg PO TID PRN muscle spasticity 10/21/22 11/04/22 11/04/22 Rx 30 days #90 tabs citalopram 40 mg tablet (Celexa) 40 mg PO DAILY@20 #30 tabs 10/31/22 11/04/22 11/04/22 Rx Allergies Allergy/AdvReac Type Severity Reaction Status Date / Time ketorolac [From Toradol] Allergy Intermediate rash Verified 11/05/22 05:58 morphine Allergy Intermediate rash Verified 11/05/22 05:58 nitrofurantoin Allergy Intermediate rash Verified 11/05/22 05:58 [From Macrobid] Penicillins Allergy Intermediate hives Verified 11/05/22 05:58 adhesive Allergy rash Verified 11/04/22 09:52 Current Medications Generic Name Dose Route Start Last Admin Trade Name Renu PRN Reason Stop Dose Admin Sodium Chloride 1,000 mls @ 30 mls/hr 11/05/22 06:00 11/05/22 06:16 Sodium Chloride 0.9% IV 11/06/22 05:59 30 mls/hr .Q24H SHERI Administration PFSH Anesthesia Medical History Acute hyperglycemia Acute pain of left knee Arthritis of hand, left Chondromalacia, knee Depression Diabetes Gastroparesis due to DM Hypertension Insomnia Lumbar post-laminectomy syndrome Medial meniscus tear Plica of knee Pyelonephritis Sepsis Spinal stenosis, cervical region Ulnar nerve impingement Surgical History H/O carpal tunnel repair H/O esophagogastroduodenoscopy (05/23/21) H/O flexible sigmoidoscopy (05/23/21) H/O neck surgery H/O rotator cuff surgery H/O tubal ligation History of hysterectomy History of lumbar fusion S/P left knee arthroscopy Status post laparoscopic cholecystectomy Family History Other CAD (coronary artery disease) Cancer Stroke Denies family history of Anesthesia complication Bleeding disorder Social History Smoking and tobacco status: current every day smoker cigarettes [ Other cigarette details: STATES VERY RARELY] Second hand smoke exposure: Yes Alcohol intake: former History of recent travel: No Female Reproductive History Date of last menstrual period: 12/18/98 Data Anesthesia Cardiac Studies: Echocardiogram 06/09/21 Sestamibi Stress Test (Cardiology) 06/09/21
--- NOTE | 2022-11-05 06:58 | W.PM.OPSUD ---
Surgery/Procedure H&P Update DATE OF PROCEDURE: November 05, 2022 DATE H&P PERFORMED: 10/10/22 CHANGES TO PREVIOUS DOCUMENTATION: None PREOP DIAGNOSIS: Left knee medial plica PRIMARY INDICATION FOR PROCEDURE: Left knee medial plica, knee pain failed conservative treatment PLANNED PROCEDURE: Operation Date: 11/05/22 07:00 Proposed Procedures p left knee diagnostic and arthroscopy:44898 M94.269(Left) - Shahriar Turcios DO
[2022-11-05] MEDS: clindamycin 600 MG/50 ML PREMIX 100 MG IV (07:00)
--- NOTE | 2022-11-05 07:47 | ANES.PROC ---
Anesthesia Procedures Procedure/Date: 11/05/22 Nerve Block ^: Nerve Block 1: Main Anesthesia: general anesthesia Time Out Performed: Yes Consent: requested by attending/covering physician, from patient, risks and benefits reviewed and patient agrees to proceed Nerve block location: adductor canal (left) Anesthesia monitors applied: pulse oximetry, EKG, BP cuff and oxygen Nerve block position: semi sitting Anesthetic Used: ropivicaine 0.5% Amount of anesthesia used (mL): 20 Ultrasound used to: recognize landmarks Nerve Stimulator Used?: No Interscalene/Femoral BLK: 4 stimuplex 21 g needle used for position and inplane approach Injection: neg aspiration of heme Patient Tolerated Procedure: well Complications: none
--- NOTE | 2022-11-05 08:15 | P.OP_ITS ---
Brief Operative Note Date of procedure: 11/05/22 Pre-op diagnosis: Left knee medial plica and chondromalacia Post-op diagnosis: same (Chondromalacia of medial and patellofemoral compartments) Procedure Done: Left knee diagnostic and surgical arthroscopy with medial plica excision Left knee diagnostic and surgical arthroscopy with medial and patellofemoral compartment chondroplasties Surgeon: Shahriar Turcios Estimated blood loss (mL): 5 Complications: None Post-op Plan: Patient taken to PACU in stable condition. Recovering well. Dressing on in place clean dry and intact. Patient will be weightbearing as tolerated left lower extremity. Patient to receive appropriate discharge traction as well as pain medication DVT prophylaxis. We will follow-up with me in the office in 2 weeks. Condition: stable Disposition: same day Coding Level of Care Code Acute [employer] Tender for Felicia Fermin
--- NOTE | 2022-11-05 08:19 | PM.PACU ---
PACU note Narrative: Patient recovering well in PACU. Pain well controlled. Dressing on in place clean dry and intact distal pulses palpable toes warm well perfused. Still sedated from anesthesia. Patient received regional anesthesia. Exam: unarousable (Still lethargic from anesthesia) Disposition: discharged
--- NOTE | 2022-11-05 08:20 | P.OP_ITS ---
Operative Report Date of procedure: November 05, 2022 Pre-op diagnosis: Preop Diagnosis Left knee medial plica Post-op diagnosis: Left knee medial plica Left knee medial and patellofemoral chondromalacia Procedure done: Left knee diagnostic and surgical arthroscopy with medial plica excision Left knee diagnostic surgical arthroscopy with medial and patellofemoral chondroplasties Left knee diagnostic and surgical arthroscopy with extensive synovectomy of medial lateral and patellofemoral compartments Surgeon: Shahriar Turcios DO Estimated blood loss: 5 mL 15 minutes IV fluids: See anesthesia record Complications: None Findings: See operative report narrative Condition: stable Disposition: same day Brief History: Patient been seen and worked up in the outpatient setting for persistent left knee. This failed conservative treatment. She had findings consistent with a medial plica. She underwent a corticosteroid injection which she tolerated in the office and had only temporary relief. MRI she shows no findings consistent with a meniscal tear. She does have some chondromalacia. Through shared decision-making in the office we talked about her treatment options far as leaving this alone and continued conservative treatment versus diagnostic and surgical arthroscopy of the left knee with medial plica excision. Understanding risk benefits complication alternatives surgical nonsurgical treatment options she elects to proceed with surgical intervention. All questions answered. Procedure: Patient seen evaluated in the preoperative holding area. Consent reviewed with patient correct extremity was then marked. She was seen evaluated by the anesthesia department. Once cleared for surgery she was taken back to the operative suite. She was placed in supine position all bony prominences were well-padded. Patient was appropriately secured to the bed. Patient underwent anesthesia per the anesthesia department. Once appropriately anesthetized the left lower extremity was then placed into a nonsterile tourniquet. The left low er extremity was then prepped and draped in sterile orthopedic fashion. Final timeout performed. Patient received appropriate preoperative antibiotics. Esmarch tourniquet was used exsanguinate the left lower extremity. Tourniquet was insufflated to 250 mmHg. A standard 2 vertical portal knee arthroscopy was performed. Started with my inferior lateral portal. Arthroscope was introduced and evaluated the suprapatellar pouch. The suprapatellar pouch was free of any loose bodies. This point I viewed the patellofemoral joint which had a severely thickened medial plica and's synovium within the patellofemoral joint. There was patellofemoral joint arthritis however given the obstruction plan was for a excision of this to further evaluate the chondromalacia. Next I viewed the medial gutter. The medial gutter was free of loose bodies. Next I then entered the medial compartment. I established my medial working portal with a spinal needle outside in technique. At this point time it was evident patient had grade III chondromalacia in the medial compartment most pronounced at the medial femoral condyle. At this point time I then inspected the meniscus with arthroscopic probe. The root was intact as well as the meniscus had no evidence of tear or instability. I then subsequently performed a medial compartment chondroplasty with arthroscopic shaver and thermal wand to stable articular tissue. Once this was then completed I then moved the arthroscope into the intercondylar notch. The intercondylar notch showed an intact ACL PCL. Patient did have a thickened infrapatellar bursa which a extensive synovectomy was performed of the medial intercondylar notch as well as the lateral compartment. This point I then visualized the lateral compartment. The lateral compartment was found to have grade I and II chondromalacia. The arthroscope scopic probe was then introduced and the lateral meniscus was probed and found to be stable with no evidence of root tear or meniscal tear. Once this was complete cleared I then viewed the lateral gutter which was found to have no evidence of loose bodies. Next I then introduced the arthroscope femoral joint and introduced arthroscopic shaver and performed a medial plica excision. I then completed the extensive synovectomy finally of the patellofemoral compartment. I now had full visualization of the patellofemoral joint. The patellofemoral joint had grade III chondromalacia underneath the patella and grade 2 in the trochlea. I performed a patellofemoral chondroplasty of the patellofemoral joint with arthroscopic shaver and thermal wand. This was taken to stable articular tissue. At this point time I then switched arthroscope to the medial portal for visualization and completed my synovectomy and the rest of the arthroscopic examination was normal with no other pathology. I then evacuated all the fluid out of the knee joint. Instruments were withdrawn. Tourniquet was deflated hemostasis satisfactory. The incisions were then closed with arthroscopic portal stitches with nylon 3-0 suture. Incisions were then covered with Xeroform 4 x 4's ABD Curlex soft roll and an Froylan wrap. Patient was then awaken ed from anesthesia and taken to PACU in stable condition. Patient tolerated procedure without complications. Disposition patient taken to PACU in stable condition. Patient will be weightbearing as tolerated left lower extremity. Patient given appropriate discharge structure as well as pain medication DVT prophylaxis postoperatively. Follow-up with me in the office in 2 weeks for repeat evaluation. Patient understands agrees with current plan. All questions answered.
[2022-11-05] MEDS: oxyCODONE 5 mg IR Tab/Cap 10 MG PO (09:15)
--- NOTE | 2022-11-05 12:01 | ANE.PACU2 ---
Inpatient post-anesthesia follow up: Airway intact: Yes Vital signs: Temperature 97.5 F Pulse Rate 81 Respiratory Rate 18 Blood Pressure 131/85 Pulse Oximetry 94 Oxygen Delivery Me thod Room Air Oxygen Flow Rate 6 Fraction of Inspir ed Oxygen Hydration adequate: Yes Nausea and vomiting: No Pain level: 3 Mental status: Baseline
== END 2022-11-05 09:36 | disposition home or self-care (01) ==
PROVIDERS: PCP Family Medicine; Visit Provider Student in an Organized Health Care Education/Training Program
PROC: (CPT 29870; principal; 2022-11-05 07:00)
DX: M67.52 Plica syndrome, left knee (principal); M22.42 Chondromalacia patellae, left knee; J44.9 Chronic obstructive pulmonary disease, unspecified; G47.30 Sleep apnea, unspecified; I25.10 Atherosclerotic heart disease of native coronary artery without angina pectoris; I11.0 Hypertensive heart disease with heart failure; I50.9 Heart failure, unspecified; I25.2 Old myocardial infarction; K21.9 Gastro-esophageal reflux disease without esophagitis; Z87.11 Personal history of peptic ulcer disease; E11.9 Type 2 diabetes mellitus without complications; E66.01 Morbid (severe) obesity due to excess calories; Z68.36 Body mass index [BMI] 36.0-36.9, adult; M79.7 Fibromyalgia; Z82.49 Family history of ischemic heart disease and other diseases of the circulatory system; F32.A Depression, unspecified; Z79.84 Long term (current) use of oral hypoglycemic drugs; F17.210 Nicotine dependence, cigarettes, uncomplicated
CPT/HCPCS: 29876; 36416; 82962; J1100; J1170; J1200; J2250; J2405; J2704; J2765; J2795; J3010; J3490; J7030

== ENCOUNTER → 2022-11-06 07:55 | Outpatient (BNVA) | payer MEDICAID, SELFPAY | PROVIDERS: PCP Family Medicine; Visit Provider Student in an Organized Health Care Education/Training Program | DX: M67.52 Plica syndrome, left knee (principal); M94.262 Chondromalacia, left knee | CPT/HCPCS: 99024 ==

== ENCOUNTER → 2022-12-03 10:31 | Outpatient (BNVA) | payer MEDICAID, SELFPAY | PROVIDERS: PCP Family Medicine; Visit Provider Student in an Organized Health Care Education/Training Program | DX: M67.52 Plica syndrome, left knee (principal); M94.262 Chondromalacia, left knee | CPT/HCPCS: 99024 ==

== ENCOUNTER 2023-01-03 09:28 | Emergency (ER) | payer MEDICAID, SELFPAY ==
[2023-01-03 09:29] VITALS: BP 183/110; PULSE 94; RESP 16; TEMP 37.1; O2SAT 97; BMI 36.0
[2023-01-03 09:38] VITALS: BP 183/110; PULSE 94; RESP 17; O2SAT 96
--- NOTE | 2023-01-03 09:38 | CTR_ITS ---
PROCEDURE INFORMATION: Exam: CT Thoracic Spine Without Contrast Exam date and time: 01/03/2023 10:08 AM Age: 52 years old Clinical indication: Injury or trauma; Fall; Blunt trauma (contusions or hematomas) TECHNIQUE: Imaging protocol: Computed tomography of the thoracic spine without contrast. Radiation optimization: All CT scans at this facility use at least one of these dose optimization techniques: automated exposure control; mA and/or kV adjustment per patient size (includes targeted exams where dose is matched to clinical indication); or iterative reconstruction. Other protocol: This patient has received 2 known CTs and 0 known cardiac nuclear medicine studies in the 12 months prior to the current study. COMPARISON: MR thoracic spin wo con* [id number] 07/12/2021 8:12 AM RADIATION DOSE METRICS: Total DLP (mGy-cm): 1126.81 FINDINGS: Bones/joints: The thoracic spine maintains a normal kyphotic curvature. No spondylolisthesis. The vertebral bodies maintain normal height. No fracture. Minimal multilevel loss of intervertebral disc height throughout the thoracic spine. Multilevel endplate degenerative changes. Broad-based posterior disc bulge/osteophyte complex at T3-4. Soft tissues: The paravertebral soft tissues are unremarkable. Coronary arteries: Mild coronary artery calcifications noted. Adrenal glands: Fat density mass in the right adrenal gland measuring up to 3.5 cm likely consistent with a benign adrenal adenoma. CT/CT thoracic spin wo con* [id number] IMPRESSION: No acute fracture or traumatic malalignment in the thoracic spine.
--- NOTE | 2023-01-03 09:38 | CTR_ITS ---
PROCEDURE INFORMATION: Exam: CT Cervical Spine Without Contrast Exam date and time: 01/03/2023 10:02 AM Age: 52 years old Clinical indication: Injury or trauma; Fall; Blunt trauma; Prior surgery; Surgery type: Neck TECHNIQUE: Imaging protocol: Computed tomography of the cervical spine without contrast. Radiation optimization: All CT scans at this facility use at least one of these dose optimization techniques: automated exposure control; mA and/or kV adjustment per patient size (includes targeted exams where dose is matched to clinical indication); or iterative reconstruction. Other protocol: This patient has received [address] and 0 known cardiac nuclear medicine studies in the 12 months prior to the current study. COMPARISON: CT angio headneck* [id number] 01/14/2020 9:03 PM RADIATION DOSE METRICS: Total DLP (mGy-cm): 301.4 FINDINGS: Bones/joints: Anterior cervical spinal fixation hardware extending from C3-C7 with intervertebral disc spacers and intervertebral body fusion device noted at C6-C7. The cervical spine demonstrates a straightened lordotic curvature. No spondylolisthesis. The vertebral bodies maintain normal height. No fracture identified. Multilevel neural foraminal narrowing. Lungs: The visualized lung apices are normal. Soft tissues: No prevertebral soft tissue swelling identified. CT/CT cervical spin wo con* [id number] IMPRESSION: No acute fracture or traumatic malalignment identified within the cervical spine.
--- NOTE | 2023-01-03 09:38 | CTR_ITS ---
PROCEDURE INFORMATION: Exam: CT Head Without Contrast Exam date and time: 01/03/2023 10:02 AM Age: 52 years old Clinical indication: Injury or trauma; Fall; Blunt trauma (contusions or hematomas) TECHNIQUE: Imaging protocol: Computed tomography of the head without contrast. Radiation optimization: All CT scans at this facility use at least one of these dose optimization techniques: automated exposure control; mA and/or kV adjustment per patient size (includes targeted exams where dose is matched to clinical indication); or iterative reconstruction. Other protocol: This patient has received [address] and 0 known cardiac nuclear medicine studies in the 12 months prior to the current study. COMPARISON: CT head wo con* [id number] 10/11/2020 3:22 PM RADIATION DOSE METRICS: Total DLP (mGy-cm): 979.02 FINDINGS: Brain: No acute hemorrhage identified. No large territorial areas of hypoattenuation concerning for ischemic infarct identified. No intracranial mass effect. Cerebral ventricles: The ventricles are within normal limits. Paranasal sinuses: The visualized sinuses are unremarkable. Mastoid air cells: The visualized mastoid air cells are well aerated. Bones/joints: The osseous structures are intact. Soft tissues: Unremarkable. CT/CT head wo con* [id number] IMPRESSION: No acute intracranial abnormality.
--- NOTE | 2023-01-03 09:38 | ECG_ITS ---
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 Measurements Intervals [place] Rate: 90 P: 70 ID: [id number] QRS: 83 QRSD: 83 T: 58 QT: 330 QTc: 404 Interpretive Statements SINUS RHYTHM Compared to ECG 06/09/2021 13:17:15 No significant changes Electronically Signed On 01-03-2023 18:25:50 [employer]IST [employer] by Dora Banda M.D. [id number]
[2023-01-03 09:55] LABS: ABG PCO2 42.2 mmHg (35-45); ABG PH Result 7.37 (7.35-7.45); Alveolar-Arterial Oxygen Gradi 3.5 mmHg (5-10); Arterial Blood Gas Hematocrit 46.1 % (37-47); Base Excess ABG -1.4 mmol/L (-2.0-2.0); Blood Gas Allen Test Pos; Blood Gas Operator Identificat CAK; Blood Gas Sample Site Radial, left; Blood Gas Sample Type Arterial; Carboxyhemoglobin 7.3 %THgb (0.4-20.1); HCO3 ABG 24.1 mmol/L (22-26); HGB O2 Sat 87.4 % (95-100); Ionized Calcium Level - ABG 1.2 mmol/L (1.1-1.4); Methemoglobin 0.6 % (0.4-1.5); Oxygen Device ROOM AIR; Oxygen Saturation ABG 94.9; PO2 ABG 72.5 mmHg (80.0-100.0); Potassium Level - ABG 4.4 mmol/L (3.5-5.0)
[2023-01-03 10:00] VITALS: BP 152/100
--- NOTE | 2023-01-03 10:01 | ED_ITS ---
HPI - Fall General: Chief Complaint: Fall Stated Complaint: HEAD/NECK PAIN S/P FALL Time Seen by Provider: 01/03/23 09:38 Source: patient Mode of arrival: EMS History of Present Illness: 52-year-old female stumbled and fell on the ice while walking. She is complaining of back and neck pain she is a c-collar in place she is previously had surgery to her thoracic and cervical spines. She has a history of COPD and congestive heart failure is diabetic fasting blood sugars 503 when she arrived here. No respiratory compromise no reported loss consciousness. MD complaint: fall Onset (ago): minute(s) Fall from: standing Place fall occurred: street Loss of consciousness: None Prolonged down time: no Symptoms prior to fall: none Context: tripped/slipped Location of injury: head, neck and back Severity: moderate Associated symptoms-after fall: Reports neck pain; Denies abdominal pain, chest pain, confusion, difficulty walking, headache(s), hematuria, lightheadedness, numbness, short of breath, vertigo or weakness Review of Systems Const: Denies: fever(s), chills, body aches, change in appetite, fatigue or malaise Eyes: Denies: change in vision or blurry vision ENMT: Denies: throat pain, ear or mastoid pain, nasal discharge or nasal congestion Card: Denies: chest pain or lightheadedness Resp: Denies: dyspnea, productive cough or non-productive cough GI: Denies: abdominal pain : Denies: dysuria, urinary frequency, urinary urgency or hematuria Musc: Reports: neck pain and back pain Skin/Breast: Denies: rash or pruritus Neuro: Denies: headache(s), difficulty walking, vertigo or confusion PFSH ED PFSH: Medical History Acute hyperglycemia Acute pain of left knee Arthritis of hand, left Chondromalacia, knee Depression Diabetes Gastroparesis due to DM Hypertension Insomnia Lumbar post-laminectomy syndrome Medial meniscus tear Plica of knee Postoperative bleeding from incision Pyelonephritis Sepsis Spinal stenosis, cervical region Ulnar nerve impingement Surgical History H/O carpal tunnel repair H/O esophagogastroduodenoscopy (05/23/21) H/O flexible sigmoidoscopy (05/23/21) H/O neck surgery H/O rotator cuff surgery H/O tubal ligation History of hysterectomy History of lumbar fusion S/P left knee arthroscopy Status post laparoscopic cholecystectomy Family History Other CAD (coronary artery disease) Cancer Stroke Denies family history of Anesthesia complication Bleeding disorder Social History Smoking and tobacco status: current every day smoker cigarettes [ Other cigarette details: STATES VERY RARELY] Second hand smoke exposure: Yes Alcohol intake: former History of recent travel: No Female Reproductive History: Date of last menstrual period: 12/18/98 Physical Exam Const: COMMON NORMALS: no acute distress GENERAL APPEARANCE: cooperative and comfortable ORIENTATION/CONSCIOUSNESS: Yes awake, Yes oriented to person, Yes oriented to place and Yes oriented to time HENMT: COMMON NORMALS: normocephalic, atraumatic, hearing grossly normal bilaterally, external ears normal, EAC's normal, TM's normal bilaterally, Normal nasal mucous membranes and turbinates present, moist oral mucous membranes and oropharynx normal HEAD & SCALP: normocephalic and atraumatic NOSE: Normal nasal mucous membranes and turbinates present EXTERNAL EAR: Yes external ears normal EXTERNAL AUDITORY CANAL: EAC's normal TYMPANIC MEMBRANE: TM's normal bilaterally Eye: COMMON NORMALS: Equal, round and reactive pupils present, EOMs intact bilaterally, conjunctivae normal and no scleral icterus CONJUNCTIVA: Yes conjunctivae normal PUPIL: Yes Equal, round and reactive pupils present Neck/C-Spine: COMMON NORMALS: full ROM, no lymphadenopathy, supple and no JVD Resp: COMMON NORMALS: normal respiratory effort, No retractions, No use of accessory muscles and clear to auscultation bilaterally AUSCULTATION: clear to auscultation bilaterally Cardio: COMMON NORMALS: no JVD, regular rate, regular rhythm and No murmurs present (Cardio) RATE: regular rate RHYTHM: regular rhythm GI: COMMON NORMALS: Soft to palpation and No hepatosplenomegaly present AUSCULTATION: Yes normoactive bowel sounds PALPATION: Yes Soft to palpation, No Tenderness to palpation present (GI), No Guarding due to palpation present (GI) and Yes No hepatosplenomegaly present Extremity: COMMON NORMALS: normal to inspection, capillary refill normal, no clubbing, cyanosis or edema, no calf tenderness and no pedal edema Neuro: SENSORIUM/ORIENTATION: Yes oriented to person, Yes oriented to place and Yes oriented to time Skin: COMMON NORMALS: no rashes or lesions noted GENERAL SKIN EXAM: no rashes or lesions noted Course Vital Signs: Vital signs: Vital Signs Temperature 98.7 F 01/03/23 09:29 Pulse Rate 85 01/03/23 11:00 Respiratory Rate 23 H 01/03/23 11:00 Blood Pressure 148/106 01/03/23 11:30 Pulse Oximetry 96 01/03/23 11:00 Oxygen Delivery Me thod 01/03/23 09:29 MDM - Fall Medical Decision Making Labs and imaging reviewed. No acute fractures patient anxious to be discharged she is feeling much. Able to ambulate without difficulty. Patient discharged home use previously prescribed medications for discomfort. Medical Records I reviewed the patient's medical records. Lab Data I reviewed the patient's lab results. 01/03/23 09:15 01/03/23 09:15 Radiology Impressions Cervical Spine CT 01/03/23 09:38 IMPRESSION: No acute fracture or traumatic malalignment identified within the cervical spine. Head CT 01/03/23 09:38 IMPRESSION: No acute intracranial abnormality. Thoracic Spine CT 01/03/23 09:38 IMPRESSION: No acute fracture or traumatic malalignment in the thoracic spine. Hip/Pelvis X-Ray 01/03/23 10:37 IMPRESSION: No fracture identified. Shoulder X-Ray 01/03/23 10:37 IMPRESSION: No acute injury identified. Laboratory Results WBC 8.6 10^3/uL (4.0-10.0) 01/03/23 09:15 RBC 5.16 10^6/uL (4.1-5.3) 01/03/23 09:15 Hgb 14.9 g/dL (11.5-15.3) 01/03/23 09:15 Hct 44.9 % (37.0-47.0) 01/03/23 09:15 MCV 87.0 fl (81-99) 01/03/23 09:15 MCH 28.9 pg (28.0-34.0) 01/03/23 09:15 MCHC 33.2 g/dL (30.0-36.0) 01/03/23 09:15 RDW 13.5 % (12.1-15.1) 01/03/23 09:15 Plt Count 143 10^3/cmm (130-400) 01/03/23 09:15 MPV 12.7 fL (7.4-10.4) H 01/03/23 09:15 Neut % (Auto) 59.9 % 01/03/23 09:15 Lymph % (Auto) 32.7 % 01/03/23 09:15 [place] % (Auto) 4.2 % 01/03/23 09:15 Eos % (Auto) 1.1 % 01/03/23 09:15 Baso % (Auto) 0.8 % 01/03/23 09:15 Neut # (Auto) 5.13 10^3/uL (1.8-7.7) 01/03/23 09:15 Lymph # (Auto) 2.8 10^3/uL (0.8-4.8) 01/03/23 09:15 [place] # (Auto) 0.4 10^3/uL (0.2-0.9) 01/03/23 09:15 Eos # (Auto) 0.1 10^3/uL (0.0-0.8) 01/03/23 09:15 Baso # (Auto) 0.1 10^3/uL (0.0-0.1) 01/03/23 09:15 Nucleated RBC % (auto) 0 % 01/03/23 09:15 Nucleated RBCs # 0.0 /100WBC 01/03/23 09:15 Specimen Type Arterial 01/03/23 09:44 Sample Site Radial, left 01/03/23 09:44 ABG pH 7.37 (7.35-7.45) 01/03/23 09:44 ABG pCO2 42.2 mmHg (35-45) 01/03/23 09:44 ABG pO2 72.5 mmHg (80.0-100.0) L 01/03/23 09:44 ABG HCO3 24.1 mmol/L (22-26) 01/03/23 09:44 ABG O2 Saturation 94.9 01/03/23 09:44 ABG Base Excess -1.4 mmol/L (-2.0-2.0) 01/03/23 09:44 Kevon Test Pos 01/03/23 09:44 A-a O2 Gradient 3.5 mmHg (5-10) L 01/03/23 09:44 Hematocrit 46.1 % (37-47) 01/03/23 09:44 Hgb O2 Saturation 87.4 % (95-100) L 01/03/23 09:44 Carboxyhemoglobin 7.3 %THgb (0.4-20.1) 01/03/23 09:44 Methemoglobin 0.6 % (0.4-1.5) 01/03/23 09:44 Total Hemoglobin 15.0 g/dL (12-16) 01/03/23 09:44 Sodium 136.0 mmol/L (131-143) 01/03/23 09:44 Potassium 4.4 mmol/L (3.5-5.0) 01/03/23 09:44 Glucose 434.0 mg/dL (70-115) H 01/03/23 09:44 Ionized Calcium 1.2 mmol/L (1.1-1.4) 01/03/23 09:44 O2 Delivery Device Room air 01/03/23 09:44 FiO2 21.0 % 01/03/23 09:44 Workflow Developer ID Cak 01/03/23 09:44 Sodium 130 mmol/L (136-145) L 01/03/23 09:15 Potassium 4.3 mmol/L (3.5-5.1) 01/03/23 09:15 Chloride 91 mmol/L (98-107) L 01/03/23 09:15 Carbon Dioxide 21 mmol/L (22-29) L 01/03/23 09:15 Anion Gap 22.3 (5-19) H 01/03/23 09:15 BUN 14 mg/dL (6-20) 01/03/23 09:15 Creatinine 0.8 mg/dL (0.5-0.9) 01/03/23 09:15 GFR Calculation 75.0 mL/min (90-130) L 01/03/23 09:15 Glucose 487 mg/dL (65-115) H 01/03/23 09:15 POC Glucose 419 mg/dL (70-110) H 01/03/23 11:22 Calculated Osmolality 292 mOsm/kg (285-295) 01/03/23 09:15 Calcium 9.3 mg/dL (8.5-10.5) 01/03/23 09:15 Serum Ketones Negative (Negative) 01/03/23 09:15 Discharge Plan Discharge Patient Disposition: Home Clinical Impression: Fall, Diabetes, Hypertension Condition: Stable Prescriptions: No Action (DME) OneTouch Ultra Test Strip See Rx Instructions .Route Qty: 300 3RF Rx Instructions: to use in onetouch ultra meter TID to check blood sugar 90 supply (DME) Diabetic Shoes with 3 pairs of inserts See Rx Instructions .ROUTE .MEDSUPPLY Qty: 1 0RF Rx Instructions: As directed by [facility] oxymetazoline [Afrin (oxymetazoline)] 0.05 % spray,non-aerosol 2 spray INTRANASAL PRN PRN (Reason: Nasal Congestion) (DME) pen needle, diabetic [BD Ultra-Fine Mini Pen Needle] 31 gauge x 3/16 needle See Rx Instructions .ROUTE .MEDSUPPLY Qty: 50 3RF Rx Instructions: As directed (DME) Dexcom G6 Group Fitness Instructor Misc See Rx Instructions .Route Qty: 1 0RF Rx Instructions: Check BS 4-6 times a day. (DME) Dexcom G6 Sensor Device See Rx Instructions .Route Qty: 9 3RF Rx Instructions: Change every 10 days. (DME) Dexcom G6 Transmitter Device See Rx Instructions .Route Qty: 3 3RF Rx Instructions: Change every 90 days. (DME) Dexcom G6 Transmitter Device See Rx Instructions .Route Qty: 1 0RF Rx Instructions: As directed citalopram [Celexa] 40 mg tablet 20 mg PO DAILY@20 Qty: 30 0RF Rx Instructions: dose change duloxetine 20 mg capsule,delayed release(DR/EC) 20 mg PO DAILY Qty: 30 0RF fluconazole 150 mg tablet See Rx Instructions .ROUTE .COMPLEX Qty: 5 3RF Dose Instruction: TAKE ONE TABLET BY MOUTH EVERY 3 DAYS FOR 2 WEEKS Rx Instructions: TAKE ONE TABLET BY MOUTH EVERY 3 DAYS FOR 2 WEEKS furosemide 20 mg tablet 20 mg PO DAILY PRN (Reason: edema) Qty: 30 4RF zolpidem 10 mg tablet 10 mg PO BEDTIME Qty: 30 0RF (DME) CAM boot See Rx Instructions .Route .MEDSUPPLY Qty: 1 0RF Rx Instructions: As directed (DME) Walker See Rx Instructions .Route .MEDSUPPLY Qty: 1 0RF Rx Instructions: As directed Humulin R U-500 (Conc) Kwikpen 500 unit/mL (3 mL) insulin pen See Rx Instructions SUBCUT QAM 90 Days Qty: 72 3RF Rx Instructions: 150 units before breakfast and 100 units before lunch metformin 500 mg tablet 500 mg PO BID 90 Days Qty: 180 1RF nitroglycerin [Nitrostat] 0.4 mg tablet, sublingual 0.4 mg SUBLINGUAL Q5M PRN (Reason: Chest Pain) Qty: 25 3RF ondansetron HCl 4 mg tablet 4 mg PO Q6H PRN (Reason: Nausea) Qty: 30 2RF promethazine 25 mg tablet 12.5 mg PO BEDTIME Qty: 30 3RF sumatriptan succinate [Imitrex] 100 mg tablet 100 mg PO PRN PRN (Reason: Migraine Headache) 30 Days Qty: 14 2RF pantoprazole 40 mg tablet,delayed release (DR/EC) 40 mg PO DAILY 90 Days Qty: 90 1RF oxycodone 10 mg tablet 10 mg PO Q6H MDD 4 tabs PRN (Reason: pain) 30 Days Qty: 120 0RF ropinirole 2 mg tablet 2 mg PO BID Qty: 180 3RF ProAir HFA 90 mcg/actuation HFA aerosol inhaler 2 puff inhalation QID PRN (Reason: Shortness Of Breath) Qty: 8.5 4RF lactulose 20 gram/30 mL solution 20 g PO BEDTIME PRN (Reason: Constipation) 90 Days Qty: 3000 0RF tizanidine 4 mg tablet 4 mg PO TID PRN (Reason: muscle spasticity) 30 Days Qty: 90 1RF Lyrica 300 mg capsule 300 mg PO BID@08,20 Qty: 60 4RF prazosin 1 mg capsule 1 mg PO BID 30 Days Qty: 60 10RF multivitamin Tablet 1 tab PO DAILY@08 potassium chloride 20 mEq tablet extended release 20 meq PO BID Discharge Orders: Discharge ED (Routine); Ordered 01/03/23 Ordered By: Mukul Eaton Referrals: Yesica Bailey MD [Primary Care Provider] - Patient Instructions: Opioid Safety, Pain Management Activity Restrictions/Additional Instructions: You were seen today after a fall. CT of your thoracic and cervical spine as well as your head were all negative plain x-rays of your hip and shoulder were also negative for acute fractures. Your blood sugar was elevated as well as your blood pressure recommend you take your blood pressure medications when you get home. Also recommended that you monitor your blood sugars. You were given 10 units of short acting (Humalog) insulin in the emergency room. You should r echeck your blood sugar within the next 60 to 90 minutes. Continue your usual medications at home. You can use previously prescribed pain medications. It is likely that due to the fall you will be more sore than usual for the next several days. Coding Level of Care Code ED [employer] Sales Representative for Felicia Fermin
[2023-01-03 10:05] LABS: Basophils # 0.1 10^3/uL (0.0-0.1); Basophils % 0.8 %; Eosinophils # 0.1 10^3/uL (0.0-0.8); Eosinophils % 1.1 %; Hematocrit 44.9 % (37.0-47.0); Hemoglobin 14.9 g/dL (11.5-15.3); Lymphocytes # 2.8 10^3/uL (0.8-4.8); Lymphocytes % 32.7 %; Mean Corpuscular HGB Conc 33.2 g/dL (30.0-36.0); Mean Corpuscular Hemoglobin 28.9 pg (28.0-34.0); Mean Platelet Volume 12.7 fL (7.4-10.4); Monocytes # 0.4 10^3/uL (0.2-0.9); Monocytes % 4.2 %; Neutrophils # 5.13 10^3/uL (1.8-7.7); Neutrophils % 59.9 %; Nucleated Red Blood Cells % 0 %; Platelet Count 143 10^3/cmm (130-400); Red Blood Count 5.16 10^6/uL (4.1-5.3); Red Cell Distribution Width 13.5 % (12.1-15.1); White Blood Count 8.6 10^3/uL (4.0-10.0)
[2023-01-03 10:33] VITALS: PULSE 92; RESP 17; O2SAT 96
--- NOTE | 2023-01-03 10:37 | XRR_ITS ---
PROCEDURE INFORMATION: Exam: XR Left Hip Exam date and time: 01/03/2023 10:44 AM Age: 52 years old Clinical indication: Injury or trauma; Fall; Blunt trauma (contusions or hematomas); Left; Hip; Additional info: Pain TECHNIQUE: Imaging protocol: Radiologic exam of the Left hip. Views: 2 or 3 views hip with pelvis when performed. COMPARISON: CR XR hip LT 2-3V wo/w pel* [id number] 07/21/2022 9:40 AM FINDINGS: Bones/joints: The visualized pelvis is grossly intact. The hip joint maintains normal alignment. No proximal femoral fracture identified. Soft tissues: Unremarkable. XR/XR hip LT 2-3V wo/w pel* [id number] IMPRESSION: No fracture identified.
--- NOTE | 2023-01-03 10:37 | XRR_ITS ---
PROCEDURE INFORMATION: Exam: XR Left Shoulder Exam date and time: 01/03/2023 10:44 AM Age: 52 years old Clinical indication: Injury or trauma; Fall; Blunt trauma (contusions or hematomas); Shoulder; Left; Additional info: Pain TECHNIQUE: Imaging protocol: Radiologic exam of the Left shoulder. Views: 2 or more views. COMPARISON: CR XR chest 1V portable [id number] 06/09/2021 11:18 AM FINDINGS: Bones/joints: The glenohumeral joint maintains normal alignment. Widening/separation of the acromioclavicular joint by approximately 12 mm, similar to prior exam possibly due to lateral clavicular osteolysis. No fracture identified. Lungs: Visualized portions of the chest are normal. Soft tissues: Unremarkable. XR/XR shoulder LT min 2V* [id number] IMPRESSION: No acute injury identified.
[2023-01-03 10:48] LABS: Blood Urea Nitrogen 14 mg/dL (6-20); Calcium 9.3 mg/dL (8.5-10.5); Carbon Dioxide 21 mmol/L (22-29); Chloride 91 mmol/L (98-107); Glucose 487 mg/dL (65-115); Osmolality Calculated 292 mOsm/kg (285-295); Sodium 130 mmol/L (136-145)
[2023-01-03 10:49] LABS: Anion Gap 22.3 (5-19)
[2023-01-03 10:50] LABS: Potassium 4.3 mmol/L (3.5-5.1)
[2023-01-03 10:52] LABS: Ketone (Acetest) Serum Negative (Negative)
[2023-01-03 11:00] VITALS: BP 154/118; PULSE 85; RESP 23; O2SAT 96
[2023-01-03 11:25] LABS: Glucose Point of Care 419 mg/dL (70-110)
[2023-01-03 11:30] VITALS: BP 148/106
[2023-01-03] MEDS: insulin lispro 100 unit/1 mL 10 UNIT SUBCUT (11:40)
[2023-01-05 11:43] LABS: Estmated Average Glucose 255; Hemoglobin A1C 10.5 % (4.0-6.0)
== END 2023-01-03 11:44 | disposition home or self-care (01) ==
PROVIDERS: Emergency Provider Family Medicine; PCP Family Medicine
DX: E11.9 Type 2 diabetes mellitus without complications (principal); I10 Essential (primary) hypertension; Z79.4 Long term (current) use of insulin; Z79.84 Long term (current) use of oral hypoglycemic drugs; F17.210 Nicotine dependence, cigarettes, uncomplicated
CPT/HCPCS: 36416; 36600; 70450; 72125; 72128; 73030; 73502; 80048; 80051; 82009; 82330; 82805; 82962; 83036; 85025; 93005; 96372; 99285; J1815

== ENCOUNTER → 2023-02-11 13:01 | Outpatient (BNVA) | payer MEDICAID, SELFPAY | PROVIDERS: PCP Family Medicine; Visit Provider Podiatrist Foot & Ankle Surgery | DX: L97.529 Non-pressure chronic ulcer of other part of left foot with unspecified severity (principal); E11.40 Type 2 diabetes mellitus with diabetic neuropathy, unspecified; Z79.4 Long term (current) use of insulin; Z79.84 Long term (current) use of oral hypoglycemic drugs | CPT/HCPCS: 73630; 99214 ==

== ENCOUNTER → 2023-03-03 08:42 | Outpatient (BNVA) | payer MEDICAID, SELFPAY | PROVIDERS: PCP Family Medicine; Visit Provider Podiatrist Foot & Ankle Surgery | DX: E11.40 Type 2 diabetes mellitus with diabetic neuropathy, unspecified (principal); L97.522 Non-pressure chronic ulcer of other part of left foot with fat layer exposed; E11.621 Type 2 diabetes mellitus with foot ulcer; Z79.84 Long term (current) use of oral hypoglycemic drugs; Z79.4 Long term (current) use of insulin | CPT/HCPCS: 11042 ==

== ENCOUNTER → 2023-03-12 08:53 | Outpatient (BNVA) | payer MEDICAID, SELFPAY | PROVIDERS: PCP Family Medicine; Visit Provider Student in an Organized Health Care Education/Training Program | DX: M70.62 Trochanteric bursitis, left hip (principal) | CPT/HCPCS: 20610; 73502; 99213 ==

== ENCOUNTER → 2023-03-17 07:53 | Outpatient (BNVA) | payer MEDICAID, SELFPAY | PROVIDERS: PCP Family Medicine; Visit Provider Podiatrist Foot & Ankle Surgery | DX: E11.621 Type 2 diabetes mellitus with foot ulcer (principal); Z79.84 Long term (current) use of oral hypoglycemic drugs; S91.111A Laceration without foreign body of right great toe without damage to nail, initial encounter; W22.8XXA Striking against or struck by other objects, initial encounter; Z79.4 Long term (current) use of insulin; L97.522 Non-pressure chronic ulcer of other part of left foot with fat layer exposed | CPT/HCPCS: 11042 ==

== ENCOUNTER 2023-05-15 11:53 | Emergency (ER) | payer MEDICAID, SELFPAY ==
[2023-05-15 12:01] VITALS: BP 145/75; PULSE 88; RESP 16; TEMP 36.6; O2SAT 95
[2023-05-15 12:19] VITALS: BP 177/111; PULSE 89; RESP 16; O2SAT 95
--- NOTE | 2023-05-15 12:28 | ED_ITS ---
HPI - Extremity Problem General: Chief complaint: Extremity Injury, Lower Stated complaint: Right foot injury, lines on it Time Seen by Provider: 05/15/23 12:24 History of Present Illness: 52 y/o female presents to ER with right foot and ankle pain since thursday. Pt reveals that she accidentally stepped into a hole while cutting grass. She describes the pain as sharp sensation with severith of 7/10. mosty on the dorsal aspect of the foot. and ankle. Increase pain with weight bearing and movement Review of Systems General: Reports: 10 or more systems reviewed and unremarkable except in HPI and below Musc: Reports: extremity pain (dorsal aspect of foot ) and extremity swelling PFSH ED PFSH: Medical History Acute hyperglycemia Acute pain of left knee Arthritis of hand, left Chondromalacia, knee Depression Diabetes Gastroparesis due to DM Hypertension Insomnia Lumbar post-laminectomy syndrome Medial meniscus tear Plica of knee Postoperative bleeding from incision Psychiatric care Pyelonephritis Sepsis Spinal stenosis, cervical region Ulnar nerve impingement Surgical History H/O carpal tunnel repair H/O esophagogastroduodenoscopy (05/23/21) H/O flexible sigmoidoscopy (05/23/21) H/O neck surgery H/O rotator cuff surgery H/O tubal ligation History of hysterectomy History of lumbar fusion S/P left knee arthroscopy Status post laparoscopic cholecystectomy Family History Other CAD (coronary artery disease) Cancer Stroke Denies family history of Anesthesia complication Bleeding disorder Social History Smoking and tobacco status: current every day smoker cigarettes [ Other cigarette details: STATES VERY RARELY] Second hand smoke exposure: Yes Alcohol intake: former Substance/Drug Use: never Physical Exam Chest: COMMONS NORMALS: normal inspection of the chest, normal palpation of entire chest wall, normal inspection of the breasts and normal palpation of the breasts Breast/axilla inspection: Yes normal inspection of the breasts BREAST/AXILLA PALPATION: Yes normal palpation of the breasts Extremity: RIGHT LOWER EXTREMITY: Yes foot & digits EXTREMITY IMAGE (FRONT): 1. area with pain with OM and palpation Course Vital Signs: Vital signs: Vital Signs Temperature 97.9 F 05/15/23 12:01 Pulse Rate 89 05/15/23 12:19 Respiratory Rate 16 05/15/23 12:57 Blood Pressure 177/111 05/15/23 12:19 Pulse Oximetry 96 05/15/23 12:57 Oxygen Delivery Me thod Room Air 05/15/23 12:19 MDM - Extremity (Nontraumatic) Medical Decision Making Patient was made comfortable emergency room. Patient was thoroughly examined and x-ray performed. Discussed the x-ray findings with the patient. It was reviewed by me. Patient was discharged with instruction and reassurance. Differential Diagnosis Likely herpes zoster, gout, cellulitis, superficial thrombophlebitis, deep venous thrombosis of upper extremity, lower extremity edema and deep vein thrombosis of lower extremity Lab Data Radiology Impressions Ankle X-Ray 05/15/23 12:28 IMPRESSION: No acute bone or joint abnormality. Foot X-Ray 05/15/23 12:28 IMPRESSION: No acute bone or joint abnormality. Other Data plan was to discharge home with walking boot. pt reveals that she had one at [facility]. she was told to wear it for 1 week. will follow-up with official x-ray Discharge Plan Discharge Patient Disposition: Home Clinical Impression: Ankle sprain and strain, Foot sprain Condition: Stable Prescriptions: New hydrocodone-acetaminophen 5-325 mg tablet 1 tab PO Q8H PRN (Reason: pain) Qty: 7 0RF No Action (DME) OneTouch Ultra Test Strip See Rx Instructions .Route Qty: 300 3RF Rx Instructions: to use in onetouch ultra meter TID to check blood sugar 90 supply (DME) Diabetic Shoes with 3 pairs of inserts See Rx Instructions .ROUTE .MEDSUPPLY Qty: 1 0RF Rx Instructions: As directed by [facility] oxymetazoline [Afrin (oxymetazoline)] 0.05 % spray,non-aerosol 2 spray INTRANASAL PRN PRN (Reason: Nasal Congestion) (DME) Dexcom G6 Sheet Ironworker Misc See Rx Instructions .Route Qty: 1 0RF Rx Instructions: Check BS 4-6 times a day. (DME) Dexcom G6 Sensor Device See Rx Instructions .Route Qty: 9 3RF Rx Instructions: Change every 10 days. (DME) Dexcom G6 Transmitter Device See Rx Instructions .Route Qty: 3 3RF Rx Instructions: Change every 90 days. (DME) Dexcom G6 Transmitter Device See Rx Instructions .Route Qty: 1 0RF Rx Instructions: As directed furosemide 20 mg tablet 20 mg PO DAILY PRN (Reason: edema) Qty: 30 4RF Robitussin Cough-Chest Pawan DM 10-200 mg capsule 1 tab-cap PO Q8H PRN (Reason: cough) Qty: 30 0RF (DME) CAM boot See Rx Instructions .Route .MEDSUPPLY Qty: 1 0RF Rx Instructions: As directed (DME) Walker See Rx Instructions .Route .MEDSUPPLY Qty: 1 0RF Rx Instructions: As directed (DME) compression stockings medium compression See Rx Instructions .Route .MEDSUPPLY Qty: 1 0RF Rx Instructions: As directed MediSuzanne (honey) 80 % gel 1 applic topical DAILY Qty: 44 0RF linezolid [Zyvox] 600 mg tablet 600 mg PO BID 14 Days Qty: 28 0RF Humulin R U-500 (Conc) Kwikpen 500 unit/mL (3 mL) insulin pen See Rx Instructions SUBCUT QAM 90 Days Qty: 72 3RF Rx Instructions: 150 units before breakfast and 100 units before lunch nitroglycerin [Nitrostat] 0.4 mg tablet, sublingual 0.4 mg SUBLINGUAL Q5M PRN (Reason: Chest Pain) Qty: 25 3RF pantoprazole 40 mg tablet,delayed release (DR/EC) 40 mg PO DAILY 90 Days Qty: 90 1RF oxycodone 10 mg tablet 10 mg PO Q6H MDD 4 tabs PRN (Reason: pain) 30 Days Qty: 120 0RF ropinirole 2 mg tablet 2 mg PO BID Qty: 180 3RF ProAir HFA 90 mcg/actuation HFA aerosol inhaler 2 puff inhalation QID PRN (Reason: Shortness Of Breath) Qty: 8.5 4RF lactulose 20 gram/30 mL solution 20 g PO BEDTIME PRN (Reason: Constipation) 90 Days Qty: 3000 0RF prazosin 1 mg capsule 1 mg PO BID 30 Days Qty: 60 10RF duloxetine 20 mg capsule,delayed release(DR/EC) 20 mg PO DAILY Qty: 30 4RF zolpidem 10 mg tablet 10 mg PO BEDTIME Qty: 30 3RF citalopram 40 mg tablet See Rx Instructions .ROUTE .COMPLEX Qty: 30 5RF Dose Instruction: TAKE ONE TABLET BY MOUTH EVERY DAY Rx Instructions: TAKE ONE TABLET BY MOUTH EVERY DAY ondansetron HCl 4 mg tablet 4 mg PO Q6H PRN (Reason: Nausea) Qty: 30 2RF MediHoney (honey) 80 % gel 1 applic topical DAILY Qty: 44 2RF fluconazole 150 mg tablet See Rx Instructions .ROUTE .COMPLEX Qty: 5 3RF Dose Instruction: TAKE ONE TABLET BY MOUTH EVERY 3 DAYS FOR 2 WEEKS Rx Instructions: TAKE ONE TABLET BY MOUTH EVERY 3 DAYS FOR 2 WEEKS promethazine 25 mg tablet 12.5 mg PO BEDTIME Qty: 30 3RF Lyrica 300 mg capsule 300 mg PO BID@08,20 Qty: 60 4RF tizanidine 4 mg tablet See Rx Instructions .ROUTE .COMPLEX Qty: 90 1RF Dose Instruction: TAKE 1 TABLET BY MOUTH 3 TIMES A DAY NEEDED FOR MUSCLE SPASTICITY Rx Instructions: TAKE 1 TABLET BY MOUTH 3 TIMES A DAY NEEDED FOR MUSCLE SPASTICITY (DME) pen needle, diabetic [TechLITE Pen Needle] 31 gauge x 3/16 needle See Rx Instructions .ROUTE .COMPLEX Qty: 100 3RF Dose Instruction: USE DIRECTED Rx Instructions: USE DIRECTED multivitamin Tablet 1 tab PO DAILY@08 potassium chloride 20 mEq tablet extended release 20 meq PO BID Discharge Orders: Discharge ED (Routine); Ordered 05/15/23 Ordered By: Robert Melendez Referrals: Yesica Bailey MD [Primary Care Provider] - Discharge Diet: Regular Discharge Activity: Use walker/crutches as instructed Patient Instructions: Opioid Safety, Pain Management Coding Level of Care Code ED Virtual Customer Assistant for Felicia Fermin
--- NOTE | 2023-05-15 12:28 | XR_ITS ---
WS: [id number] XR ankle RT min 3V* [id number] REASON FOR EXAM: pain FINDINGS: Mild periarticular soft tissue swelling. No fracture identified. Joint spaces of the ankle are intact and well preserved. XR/XR ankle RT min 3V* [id number] IMPRESSION: No acute bone or joint abnormality.
--- NOTE | 2023-05-15 12:28 | XR_ITS ---
WS: [id number] XR foot RT min 3V* [id number] REASON FOR EXAM: pain post injury FINDINGS: No fracture identified. Joint spaces of the right forefoot, midfoot, and hindfoot are intact and relatively well-preserved. No soft tissue abnormality. XR/XR foot RT min 3V* [id number] IMPRESSION: No acute bone or joint abnormality.
[2023-05-15 12:57] VITALS: RESP 16; O2SAT 96
[2023-05-15] MEDS: oxyCODONE-APAP 5-325 mg Tablet 1 TAB PO (12:57)
--- NOTE | 2023-05-15 14:19 | PC.NURSE ---
PT REQUESTED TO GO OUTSIDE OF THE ER FOR A SMOKE BREAK. PT INFORMED THIS IS A NON SMOKING CAMPUS AND PT COULD NOT GO OUTSIDE YET BECAUSE HER DC WAS BEING FILED
== END 2023-05-15 14:09 | disposition home or self-care (01) ==
PROVIDERS: Emergency Provider Family Medicine; PCP Family Medicine
DX: S93.401A Sprain of unspecified ligament of right ankle, initial encounter (principal); S96.911A Strain of unspecified muscle and tendon at ankle and foot level, right foot, initial encounter; Z79.4 Long term (current) use of insulin; F17.210 Nicotine dependence, cigarettes, uncomplicated; E11.9 Type 2 diabetes mellitus without complications; I10 Essential (primary) hypertension; X50.1XXA Overexertion from prolonged static or awkward postures, initial encounter
CPT/HCPCS: 73610; 73630; 99283

== ENCOUNTER → 2023-05-17 15:24 | Outpatient (BNVA) | payer MEDICAID, SELFPAY | PROVIDERS: PCP Family Medicine; Visit Provider Emergency Medicine | DX: M79.671 Pain in right foot (principal) | CPT/HCPCS: 73630 ==

== ENCOUNTER → 2023-05-19 07:56 | Outpatient (BNVA) | payer MEDICAID, SELFPAY | PROVIDERS: PCP Family Medicine; Visit Provider Nurse Practitioner Family | DX: E11.52 Type 2 diabetes mellitus with diabetic peripheral angiopathy with gangrene (principal); L97.512 Non-pressure chronic ulcer of other part of right foot with fat layer exposed | CPT/HCPCS: 97597; 99213 ==

== ENCOUNTER → 2023-05-28 09:01 | Outpatient (BNVA) | payer MEDICAID, SELFPAY | PROVIDERS: PCP Family Medicine; Visit Provider Podiatrist Foot & Ankle Surgery | DX: E11.621 Type 2 diabetes mellitus with foot ulcer (principal); L97.511 Non-pressure chronic ulcer of other part of right foot limited to breakdown of skin; Z79.4 Long term (current) use of insulin | CPT/HCPCS: 99214; A6219 ==

== ENCOUNTER → 2023-06-04 07:52 | Outpatient (BNVA) | payer MEDICAID, SELFPAY | PROVIDERS: PCP Family Medicine; Visit Provider Podiatrist Foot & Ankle Surgery | DX: E11.621 Type 2 diabetes mellitus with foot ulcer (principal); L97.511 Non-pressure chronic ulcer of other part of right foot limited to breakdown of skin; Z79.4 Long term (current) use of insulin | CPT/HCPCS: 99213 ==

== ENCOUNTER → 2023-06-11 08:24 | Outpatient (BNVA) | payer MEDICAID, SELFPAY | PROVIDERS: PCP Family Medicine; Visit Provider Podiatrist Foot & Ankle Surgery | DX: E11.621 Type 2 diabetes mellitus with foot ulcer (principal); L97.511 Non-pressure chronic ulcer of other part of right foot limited to breakdown of skin; Z79.4 Long term (current) use of insulin | CPT/HCPCS: 99213 ==

== ENCOUNTER → 2023-08-28 08:03 | Outpatient (BNVA) | payer MEDICAID, SELFPAY | PROVIDERS: PCP Family Medicine; Visit Provider Internal Medicine | DX: E11.40 Type 2 diabetes mellitus with diabetic neuropathy, unspecified; E78.5 Hyperlipidemia, unspecified; E11.59 Type 2 diabetes mellitus with other circulatory complications; I25.10 Atherosclerotic heart disease of native coronary artery without angina pectoris; K31.84 Gastroparesis; Z79.4 Long term (current) use of insulin; Z86.73 Personal history of transient ischemic attack (TIA), and cerebral infarction without residual deficits | CPT/HCPCS: 99214 ==

== ENCOUNTER → 2023-10-12 10:08 | Outpatient (BNVA) | payer MEDICAID, SELFPAY | PROVIDERS: PCP Family Medicine; Visit Provider Podiatrist Foot & Ankle Surgery | DX: M79.671 Pain in right foot (principal); E11.8 Type 2 diabetes mellitus with unspecified complications; X58.XXXA Exposure to other specified factors, initial encounter; S91.111A Laceration without foreign body of right great toe without damage to nail, initial encounter; L03.90 Cellulitis, unspecified; Z79.4 Long term (current) use of insulin | CPT/HCPCS: 36415; 73630; 82044; 83036; 85025; 85651; 99213 ==

== ENCOUNTER → 2023-10-15 08:11 | Outpatient (BNVA) | payer MEDICAID, SELFPAY | PROVIDERS: PCP Family Medicine; Visit Provider Podiatrist Foot & Ankle Surgery | DX: I73.9 Peripheral vascular disease, unspecified; E11.9 Type 2 diabetes mellitus without complications; W22.8XXA Striking against or struck by other objects, initial encounter; Z79.4 Long term (current) use of insulin; S91.111A Laceration without foreign body of right great toe without damage to nail, initial encounter; I75.021 Atheroembolism of right lower extremity | CPT/HCPCS: 99213 ==

== ENCOUNTER → 2023-10-20 07:51 | Outpatient (BNVA) | payer MEDICAID, SELFPAY | PROVIDERS: PCP Family Medicine; Visit Provider Podiatrist Foot & Ankle Surgery | DX: E11.9 Type 2 diabetes mellitus without complications; I75.021 Atheroembolism of right lower extremity; S91.111A Laceration without foreign body of right great toe without damage to nail, initial encounter; W22.8XXA Striking against or struck by other objects, initial encounter; Z79.4 Long term (current) use of insulin | CPT/HCPCS: 99213 ==

== ENCOUNTER → 2023-11-03 08:05 | Outpatient (BNVA) | payer MEDICAID, SELFPAY | PROVIDERS: PCP Family Medicine; Visit Provider Podiatrist Foot & Ankle Surgery | DX: E11.52 Type 2 diabetes mellitus with diabetic peripheral angiopathy with gangrene; Z79.4 Long term (current) use of insulin; S91.119A Laceration without foreign body of unspecified toe without damage to nail, initial encounter; X58.XXXA Exposure to other specified factors, initial encounter | CPT/HCPCS: 99213 ==

== ENCOUNTER → 2023-11-26 07:56 | Outpatient (BNVA) | payer MEDICAID, SELFPAY | PROVIDERS: PCP Family Medicine; Visit Provider Podiatrist Foot & Ankle Surgery | DX: E11.52 Type 2 diabetes mellitus with diabetic peripheral angiopathy with gangrene; Z79.4 Long term (current) use of insulin; L03.90 Cellulitis, unspecified; Z89.421 Acquired absence of other right toe(s) | CPT/HCPCS: 99213 ==

== ENCOUNTER → 2024-02-16 11:41 | Outpatient (BNVA) | payer MEDICAID, SELFPAY | PROVIDERS: PCP Family Medicine; Visit Provider Student in an Organized Health Care Education/Training Program | DX: S89.92XA Unspecified injury of left lower leg, initial encounter; M94.262 Chondromalacia, left knee; X58.XXXA Exposure to other specified factors, initial encounter; Z89.611 Acquired absence of right leg above knee | CPT/HCPCS: 73562; 99213 ==

== ENCOUNTER 2024-02-19 16:29 | Emergency (ER) | payer MEDICAID, SELFPAY ==
[2024-02-19 16:33] VITALS: BP 160/88; PULSE 107; RESP 20; TEMP 36.8; O2SAT 99
--- NOTE | 2024-02-19 16:49 | ED_ITS ---
Documented by User: Mukul Eaton DO 02/20/24 06:33 HPI - Extremity Problem General: Chief complaint: Extremity Injury, Lower Stated complaint: fall Time Seen by Provider: 02/19/24 16:39 Source: patient Mode of arrival: wheelchair History of Present Illness: 53-year-old female presents emergency ro om motorized wheelchair. She was going up the ramp in her home and chair tipped to the left she fell out landed on her stump of her right leg that is previously amputated as well as on her left knee. She has pain at the end of her stump. Patient has some dehiscence of the lateral portion of the incision line from the amputation of the right leg. Also the open wound just medial to this midline of the incision. There is some serosanguineous drainage at this time no purulent drainage. She also has an abrasion superior to the incision line she has an abrasion on the left knee and a small hematoma on the left great toe MD Complaint: extremity pain Onset (ago): minute(s) Pain Consistency: constant Location: left, right and lower extremity Associated symptoms: Deny chest pain, fever(s) or rash Review of Systems Const: Denies: fever(s) or chills Card: Denies: chest pain Resp: Denies: dyspnea GI: Denies: abdominal pain : Denies: dysuria, urinary frequency or urinary urgency Musc: Denies: neck pain or back pain Skin/Breast: Denies: rash PFSH ED PFSH: Medical History Postoperative bleeding from incision Chondromalacia, knee Plica of knee Medial meniscus tear Acute pain of left knee Gastroparesis due to DM Acute hyperglycemia Arthritis of hand, left Sepsis Pyelonephritis Hypertension Depression Diabetes Insomnia Ulnar nerve impingement Lumbar post-laminectomy syndrome Spinal stenosis, cervical region Surgical History H/O esophagogastroduodenoscopy (05/23/21) H/O flexible sigmoidoscopy (05/23/21) Status post laparoscopic cholecystectomy H/O carpal tunnel repair History of lumbar fusion H/O neck surgery H/O rotator cuff surgery History of hysterectomy H/O tubal ligation S/P left knee arthroscopy Family History Other CAD (coronary artery disease) Cancer Stroke Denies family history of Anesthesia complication Bleeding disorder Social History Smoking and tobacco/nicotine status: current every day tobacco/nicotine user cigarettes [ Other cigarette details: STATES VERY RARELY] Second hand smoke exposure: Yes Alcohol intake: former Substance/Drug Use: never Physical Exam Const: GENERAL APPEARANCE: cooperative and comfortable ORIENTATION/CONSCIOUSNESS: Yes awake, Yes oriented to person, Yes oriented to place and Yes oriented to time HENMT: COMMON NORMALS: normocephalic, atraumatic and hearing grossly normal bilaterally HEAD & SCALP: normocephalic and atraumatic Resp: COMMON NORMALS: normal respiratory effort, No retractions, No use of accessory muscles and clear to auscultation bilaterally AUSCULTATION: clear to auscultation bilaterally Cardio: COMMON NORMALS: regular rate, regular rhythm and No murmurs present (Cardio) RATE: regular rate RHYTHM: regular rhythm GI: COMMON NORMALS: Soft to palpation and No hepatosplenomegaly present AUSCULTATION: Yes normoactive bowel sounds PALPATION: Yes Soft to palpation, No Tenderness to palpation present (GI), No Guarding due to palpation present (GI) and Yes No hepatosplenomegaly present Extremity: OTHER: Abrasion to the left knee superiorly no deformity of the left knee there is a small hematoma just to the medial anterior part of the left great toe. There is an abrasion superior to the incision line on the amputation stump of the right lower leg. There is nonpurulent serosanguineous drainage from a defect in the wound at the the midline. There is a small amount of dried eschar at the lateral portion of the incision that has dehisced. No active drainage. Neuro: SENSORIUM/ORIENTATION: Yes oriented to person, Yes oriented to place and Yes oriented to time Skin: COMMON NORMALS: no rashes or lesions noted GENERAL SKIN EXAM: no rashes or lesions noted Course Vital Signs: Vital signs: Vital Signs Temperature 98.2 F 02/19/24 16:33 Pulse Rate 104 H 02/19/24 18:46 Respiratory Rate 16 02/19/24 17:09 Blood Pressure 157/95 02/19/24 18:46 Pulse Oximetry 91 02/19/24 18:46 Oxygen Delivery Me thod Room Air 02/19/24 18:27 MDM - Extremity (Nontraumatic) Medical Decision Making Plain film of suspicious for possible tibial plateau fracture on the left knee CT ordered and is pending. Care signed out to Dr. Fox at change of shift. See final notes for diagnosis and disposition. I have discussed the patient's case with the off going physician <Dr. Eaton> and I have assumed care of the patient. We have discussed the current lab/radiographic results that have been resulted and the pending tests. I discussed the radiographic findings with the patient, we did provide a bulky dressing to the wound patient states that she has specific wound care dressings that she applies at home and states that she will redress her healing stump when she gets home. Medical Records I reviewed the patient's medical records. Lab Data I reviewed the patient's lab results. Radiology Impressions Femur X-Ray 02/19/24 16:50 IMPRESSION: 1. Negative for fracture or dislocation. 2. Amputation at level of the proximal tibia and fibular diaphysis. 3. Vascular stent in the region of the mid thigh. Foot X-Ray 02/19/24 16:57 IMPRESSION: 1. Negative for fracture or dislocation 2. Soft tissue swelling over the forefoot. 3. Small calcified heel spur. Knee X-Ray 02/19/24 17:00 IMPRESSION: 1. Negative for acute bony abnormality. 2. Amputation at level of the proximal tibia and fibula. 3. Minimal subcutaneous emphysema over the tibial/fibular stump, may reflect an infectious process. Knee CT 02/19/24 17:29 IMPRESSION: 1. Negative for fracture or dislocation 2. Large joint effusion. 3. Moderate to severe tricompartmental osteoarthritis of the knee. 4. Subcutaneous edema about the knee. Discharge Plan Discharge Patient Disposition: Home Clinical Impression: Acute pain of right lower extremity Accidental fall Qualifiers: Encounter type: initial encounter Qualified Code(s): W19.XXXA - Unspecified fall, initial encounter Condition: Stable Prescriptions: No Action Humulin R U-500 (Conc) Kwikpen 500 unit/mL (3 mL) insulin pen 100 unit SUBCUT TID 30 Days Qty: 18 7RF (DME) motorized wheel chair See Rx Instructions .Route .MEDSUPPLY Qty: 1 0RF Rx Instructions: Only mode of transportation. Patient does not drive. Home bound (DME) wheel chair ramp See Rx Instructions .Route .MEDSUPPLY Qty: 1 0RF Rx Instructions: [place] directed [place] [place] OneTouch Ultra Test Strip See Rx Instructions .Route Qty: 300 3RF Rx Instructions: to use in onetouch ultra meter TID to check blood sugar 90 supply ([facility] [place] 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 meter [OneTouch Ultra2 Meter] [facility] [place] See Rx Instructions .ROUTE .COMPLEX Qty: 1 0RF Dose Instruction: USE DIRECTED Rx Instructions: USE DIRECTED [place] [place] Dexcom G7 Sensor Device See Rx Instructions .ROUTE .MEDSUPPLY Qty: 9 0RF Rx Instructions: Change every 10days oxycodone 10 mg tablet 10 mg PO Q6H MDD 4 tabs PRN (Reason: pain) 30 Days Qty: 120 0RF citalopram 40 mg tablet See Rx Instructions .ROUTE .COMPLEX Qty: 30 5RF Dose Instruction: TAKE ONE TABLET BY MOUTH EVERY DAY Rx Instructions: TAKE ONE TABLET BY MOUTH EVERY DAY duloxetine 20 mg capsule,delayed release(DR/EC) See Rx Instructions .ROUTE .COMPLEX Qty: 30 4RF Dose Instruction: TAKE ONE CAPSULE BY MOUTH EVERY DAY Rx Instructions: TAKE ONE CAPSULE BY MOUTH EVERY DAY hydroxyzine HCl 25 mg tablet 25 mg PO BID PRN (Reason: itching) Qty: 30 1RF multivitamin Tablet 1 tab PO DAILY@08 Qty: 90 4RF pantoprazole 40 mg tablet,delayed release (DR/EC) 40 mg PO DAILY 90 Days Qty: 90 1RF (DME) pen needle, diabetic [TechLITE Pen Needle] 31 gauge x 3/16 needle See Rx Instructions .ROUTE .COMPLEX Qty: 100 3RF Dose Instruction: USE DIRECTED Rx Instructions: USE DIRECTED prazosin 1 mg capsule 1 mg PO BID 30 Days Qty: 60 10RF Lyrica 300 mg capsule 300 mg PO BID@08,20 Qty: 60 5RF ropinirole 2 mg tablet See Rx Instructions .ROUTE .COMPLEX Qty: 180 3RF Dose Instruction: TAKE ONE TABLET BY MOUTH TWICE A DAY Rx Instructions: TAKE ONE TABLET BY MOUTH TWICE A DAY tizanidine 4 mg tablet See Rx Instructions .ROUTE .COMPLEX Qty: 90 1RF Dose Instruction: TAKE 1 TABLET BY MOUTH 3 TIMES A DAY NEEDED FOR MUSCLE SPASTICITY Rx Instructions: TAKE 1 TABLET BY MOUTH 3 TIMES A DAY NEEDED FOR MUSCLE SPASTICITY atorvastatin 40 mg tablet 40 mg PO DAILY Qty: 90 0RF clopidogrel [Plavix] 75 mg tablet 75 mg PO DAILY Qty: 90 0RF oxycodone 10 mg tablet 10 mg PO Q6H PRN (Reason: pain) 30 Days Qty: 120 0RF oxycodone [OxyContin] 30 mg tablet,oral only,ext.rel.12 hr 30 mg PO Q12H 30 Days Qty: 60 0RF (DME) Dexcom G7 Airplane And Engine Inspector Misc See Rx Instructions .Route Qty: 1 0RF Rx Instructions: As directed Patient states needs 7 not 6 olanzapine [Zyprexa] 5 mg tablet 5 mg PO DAILY Qty: 30 2RF promethazine 25 mg tablet 12.5 mg PO BEDTIME Qty: 30 3RF Discharge Orders: Discharge ED (Routine); Ordered 02/19/24 Ordered By: Sergei Fox Referrals: Yesica Bailey MD [Primary Care Provider] - Discharge Diet: Usual diet Discharge Activity: Resume usual activity Patient Instructions: Opioid Safety, Pain Management Activity Restrictions/Additional Instructions: Activity Restrictions/Additional Instructions: Thank you for choosing [facility] for your healthcare needs today. Please realize that you were seen in the Emergency Department and that we are providing you with an emergency medical screening exam and this may not be a complete and all inclusive of all the testing and or medical work-up that you may need to determine your ailment or severity of your illness. It is very important that you follow-up as instructed with your Primary care provider or Specialist for additional evaluation and to discuss your medical treatment plan. You may return to the Emergency Department should you have concerns or if your condition changes or worsens in any way. Coding Level of Care Code ED Corporate Sales Trainer for Chg Fwd Documented by User: Sergei Fox MD 02/19/24 19:51 HPI - Extremity Problem General: Chief complaint: Extremity Injury, Lower Stated complaint: fall Time Seen by Provider: 02/19/24 16:39 [facility] ED PFSH: Medical History Postoperative bleeding from incision Chondromalacia, knee Plica of knee Medial meniscus tear Acute pain of left knee Gastroparesis due to DM Acute hyperglycemia Arthritis of hand, left Sepsis Pyelonephritis Hypertension Depression Diabetes Insomnia Ulnar nerve impingement Lumbar post-laminectomy syndrome Spinal stenosis, cervical region Surgical History H/O esophagogastroduodenoscopy (05/23/21) H/O flexible sigmoidoscopy (05/23/21) Status post laparoscopic cholecystectomy H/O carpal tunnel repair History of lumbar fusion H/O neck surgery H/O rotator cuff surgery History of hysterectomy H/O tubal ligation S/P left knee arthroscopy Family History Other CAD (coronary artery disease) Cancer Stroke Denies family history of Anesthesia complication Bleeding disorder Social History Smoking and tobacco/nicotine status: current every day tobacco/nicotine user cigarettes [ Other cigarette details: STATES VERY RARELY] Second hand smoke exposure: Yes Alcohol intake: former Substance/Drug Use: never Course Vital Signs: Vital signs: Vital Signs Temperature 98.2 F 02/19/24 16:33 Pulse Rate 104 H 02/19/24 18:46 Respiratory Rate 16 02/19/24 17:09 Blood Pressure 157/95 02/19/24 18:46 Pulse Oximetry 91 02/19/24 18:46 Oxygen Delivery Me thod Room Air 02/19/24 18:27 MDM - Extremity (Nontraumatic) Medical Decision Making I have discussed the patient's case with the off going physician <Dr. Eaton> and I have assumed care of the patient. We have discussed the current lab/radiographic results that have been resulted and the pending tests. I discussed the radiographic findings with the patient, we did provide a bulky dressing to the wound patient states that she has specific wound care dressings that she applies at home and states that she will redress her healing stump when she gets home. Lab Data Radiology Impressions Femur X-Ray 02/19/24 16:50 IMPRESSION: 1. Negative for fracture or dislocation. 2. Amputation at level of the proximal tibia and fibular diaphysis. 3. Vascular stent in the region of the mid thigh. Foot X-Ray 02/19/24 16:57 IMPRESSION: 1. Negative for fracture or dislocation 2. Soft tissue swelling over the forefoot. 3. Small calcified heel spur. Knee X-Ray 02/19/24 17:00 IMPRESSION: 1. Negative for acute bony abnormality. 2. Amputation at level of the proximal tibia and fibula. 3. Minimal subcutaneous emphysema over the tibial/fibular stump, may reflect an infectious process. Knee CT 02/19/24 17:29 IMPRESSION: 1. Negative for fracture or dislocation 2. Large joint effusion. 3. Moderate to severe tricompartmental osteoarthritis of the knee. 4. Subcutaneous edema about the knee. All radiology interpretation(s) finalized by discharge Discharge Plan Discharge Patient Disposition: Home Clinical Impression: Acute pain of right lower extremity Accidental fall Qualifiers: Encounter type: initial encounter Qualified Code(s): W19.XXXA - Unspecified fall, initial encounter Condition: Stable Prescriptions: No Action Humulin R U-500 (Conc) Kwikpen 500 unit/mL (3 mL) insulin pen 100 unit SUBCUT TID 30 Days Qty: 18 7RF (DME) motorized wheel chair See Rx Instructions .Route .MEDSUPPLY Qty: 1 0RF Rx Instructions: Only mode of transportation. Patient does not drive. Home bound (DME) wheel chair ramp See Rx Instructions .Route .MEDSUPPLY Qty: 1 0RF Rx Instructions: As directed [place] [place] OneTouch Ultra Test Strip See Rx Instructions .Route Qty: 300 3RF Rx Instructions: to use in onetouch ultra meter TID to check blood sugar 90 supply (DME) 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 meter [OneTouch Ultra2 Meter] [facility] [place] See Rx Instructions .ROUTE .COMPLEX Qty: 1 0RF Dose Instruction: USE DIRECTED Rx Instructions: USE DIRECTED [place] [place] Dexcom G7 Sensor Device See Rx Instructions .ROUTE .MEDSUPPLY Qty: 9 0RF Rx Instructions: Change every 10days oxycodone 10 mg tablet 10 mg PO Q6H MDD 4 tabs PRN (Reason: pain) 30 Days Qty: 120 0RF citalopram 40 mg tablet See Rx Instructions .ROUTE .COMPLEX Qty: 30 5RF Dose Instruction: TAKE ONE TABLET BY MOUTH EVERY DAY Rx Instructions: TAKE ONE TABLET BY MOUTH EVERY DAY duloxetine 20 mg capsule,delayed release(DR/EC) See Rx Instructions .ROUTE .COMPLEX Qty: 30 4RF Dose Instruction: TAKE ONE CAPSULE BY MOUTH EVERY DAY Rx Instructions: TAKE ONE CAPSULE BY MOUTH EVERY DAY hydroxyzine HCl 25 mg tablet 25 mg PO BID PRN (Reason: itching) Qty: 30 1RF multivitamin Tablet 1 tab PO DAILY@08 Qty: 90 4RF pantoprazole 40 mg tablet,delayed release (DR/EC) 40 mg PO DAILY 90 Days Qty: 90 1RF (DME) pen needle, diabetic [TechLITE Pen Needle] 31 gauge x 3/16 needle See Rx Instructions .ROUTE .COMPLEX Qty: 100 3RF Dose Instruction: USE DIRECTED Rx Instructions: USE DIRECTED prazosin 1 mg capsule 1 mg PO BID 30 Days Qty: 60 10RF Lyrica 300 mg capsule 300 mg PO BID@08,20 Qty: 60 5RF ropinirole 2 mg tablet See Rx Instructions .ROUTE .COMPLEX Qty: 180 3RF Dose Instruction: TAKE ONE TABLET BY MOUTH TWICE A DAY Rx Instructions: TAKE ONE TABLET BY MOUTH TWICE A DAY tizanidine 4 mg tablet See Rx Instructions .ROUTE .COMPLEX Qty: 90 1RF Dose Instruction: TAKE 1 TABLET BY MOUTH 3 TIMES A DAY NEEDED FOR MUSCLE SPASTICITY Rx Instructions: TAKE 1 TABLET BY MOUTH 3 TIMES A DAY NEEDED FOR MUSCLE SPASTICITY atorvastatin 40 mg tablet 40 mg PO DAILY Qty: 90 0RF clopidogrel [Plavix] 75 mg tablet 75 mg PO DAILY Qty: 90 0RF oxycodone 10 mg tablet 10 mg PO Q6H PRN (Reason: pain) 30 Days Qty: 120 0RF oxycodone [OxyContin] 30 mg tablet,oral only,ext.rel.12 hr 30 mg PO Q12H 30 Days Qty: 60 0RF (DME) Dexcom G7 Airplane And Engine Inspector Misc See Rx Instructions .Route Qty: 1 0RF Rx Instructions: As directed Patient states needs 7 not 6 olanzapine [Zyprexa] 5 mg tablet 5 mg PO DAILY Qty: 30 2RF promethazine 25 mg tablet 12.5 mg PO BEDTIME Qty: 30 3RF Discharge Orders: Discharge ED (Routine); Ordered 02/19/24 Ordered By: Sergei Fox Referrals: Yesica Bailey MD [Primary Care Provider] - Discharge Diet: Usual diet Discharge Activity: Resume usual activity Patient Instructions: Opioid Safety, Pain Management Activity Restrictions/Additional Instructions: Activity Restrictions/Additional Instructions: Thank you for choosing [facility] for your healthcare needs today. Please realize that you were seen in the Emergency Department and that we are providing you with an emergency medical screening exam and this may not be a complete and all inclusive of all the testing and or medical work-up that you may need to determine your ailment or severity of your illness. It is very important that you follow-up as instructed with your Primary care provider or Specialist for additional evaluation and to discuss your medical treatment plan. You may return to the Emergency Department should you have concerns or if your condition changes or worsens in any way. Coding Level of Care Code ED Corporate Sales Trainer for Felicia Fermin
[2024-02-19 16:50] VITALS: BP 147/90; PULSE 107; O2SAT 95
--- NOTE | 2024-02-19 16:50 | XRR_ITS ---
PROCEDURE INFORMATION: Exam: XR Right Femur Exam date and time: 02/19/2024 5:23 PM Age: 53 years old Clinical indication: Injury or trauma; Fall; Blunt trauma; Thigh or upper leg; Injury date: Today; Prior surgery; Surgery date: 6+ months; Surgery type: Amputation RT ll; Patient HX: Was going up the ramp in her home and chair tipped to the left she fell out landed on her stump of her right leg that is previously amputated as well as on her left knee. Pain at end of stump; Additional info: Trauma - previous amputation TECHNIQUE: Imaging protocol: Radiologic exam of the right femur. Views: 2 views. COMPARISON: CR (LOW EXM, ) 02/19/2024 5:23 PM FINDINGS: Bones/joints: Amputation at level of the proximal tibia and fibular diaphysis. Soft tissues: Unremarkable. Vasculature: Vascular stent in the region of the mid thigh. XR/XR femur RT min 2V* [id number] IMPRESSION: 1. Negative for fracture or dislocation. 2. Amputation at level of the proximal tibia and fibular diaphysis. 3. Vascular stent in the region of the mid thigh.
--- NOTE | 2024-02-19 16:50 | XRR_ITS ---
PROCEDURE INFORMATION: Exam: XR Left Knee Exam date and time: 02/19/2024 5:08 PM Age: 53 years old Clinical indication: Injury or trauma; Fall; Blunt trauma; Injury date: Today; Patient HX: Going up the ramp in her home and chair tipped to the left she fell out landed on her stump of her right leg that is previously amputated as well as on her left knee. Pain at the end of her stump. Abrasion on the left knee TECHNIQUE: Imaging protocol: Radiologic exam of the left knee. Views: 3 views. COMPARISON: MR knee LT wo con* [id number] 09/16/2022 7:34 AM FINDINGS: Bones/joints: Mild to moderate tricompartmental of the knee. Soft tissues: AP view demonstrates a subtle obliquely into lucency in the proximal tibial metaphysis, similar to prior exam likely reflecting overlapping soft tissues or a vascular groove. XR/XR knee LT 3V* [id number] IMPRESSION: 1. Negative for acute bony abnormality. 2. Mild to moderate tricompartmental of the knee. 3. AP view demonstrates a subtle obliquely oriented lucency in the proximal tibial metaphysis, similar to prior exam likely reflecting overlapping soft tissues or a vascular groove.
--- NOTE | 2024-02-19 16:57 | XRR_ITS ---
PROCEDURE INFORMATION: Exam: XR Left Foot Exam date and time: 02/19/2024 5:08 PM Age: 53 years old Clinical indication: Injury or trauma; Fall; Blunt trauma; Foot; Injury date: Today; Patient HX: Going up ramp at home and wheelchair tipped and fell. Small hematoma on the left great toe TECHNIQUE: Imaging protocol: Radiologic exam of the left foot. Views: 3 or more views. COMPARISON: CR XR foot LT min 3V* [id number] 07/21/2022 9:58 AM FINDINGS: Bones/joints: Small calcified heel spur. Soft tissues: Soft tissue swelling over the forefoot. XR/XR foot LT min 3V* [id number] IMPRESSION: 1. Negative for fracture or dislocation 2. Soft tissue swelling over the forefoot. 3. Small calcified heel spur.
--- NOTE | 2024-02-19 17:00 | XRR_ITS ---
PROCEDURE INFORMATION: Exam: XR Right Knee Exam date and time: 02/19/2024 5:23 PM Age: 53 years old Clinical indication: Injury or trauma; Fall; Blunt trauma; Injury date: Today; Prior surgery; Surgery date: 6+ months; Surgery type: Amputation below knee; Patient HX: Was going up the ramp in her home and chair tipped to the left she fell out landed on her stump of her right leg that is previously amputated as well as on her left knee. Pain at end of stump TECHNIQUE: Imaging protocol: Radiologic exam of the right knee. Views: 3 views. COMPARISON: CR (LOW EXM, ) 02/19/2024 5:23 PM FINDINGS: Bones/joints: Amputation at level of the proximal tibia and fibula. Soft tissues: Minimal subcutaneous emphysema over the tibial/fibular stump, may reflect an infectious process. XR/XR knee RT 3V* [id number] IMPRESSION: 1. Negative for acute bony abnormality. 2. Amputation at level of the proximal tibia and fibula. 3. Minimal subcutaneous emphysema over the tibial/fibular stump, may reflect an infectious process.
[2024-02-19 17:09] VITALS: RESP 16; O2SAT 95
[2024-02-19] MEDS: oxyCODONE 5 mg IR Tab/Cap 10 MG PO (17:09)
--- NOTE | 2024-02-19 17:29 | CTR_ITS ---
PROCEDURE INFORMATION: Exam: CT Left Lower Extremity Without Contrast, Knee Exam date and time: 02/19/2024 5:39 PM Age: 53 years old Clinical indication: Injury or trauma; Blunt trauma; Left; Patient HX: Fall out of motorized wheelchair. C/O knee pain. TECHNIQUE: Imaging protocol: CT of the left lower extremity without contrast was performed. Exam focused on the knee. Radiation optimization: All CT scans at this facility use at least one of these dose optimization techniques: automated exposure control; mA and/or kV adjustment per patient size (includes targeted exams where dose is matched to clinical indication); or iterative reconstruction. COMPARISON: MR knee LT wo con* [id number] 09/16/2022 7:34 AM RADIATION DOSE METRICS: Total DLP (mGy-cm): 331.72 FINDINGS: Bones/joints: Large joint effusion. Moderate to severe tricompartmental osteoarthritis of the knee. Soft tissues: Subcutaneous edema about the knee. CT/CT knee LT wo con* [id number] IMPRESSION: 1. Negative for fracture or dislocation 2. Large joint effusion. 3. Moderate to severe tricompartmental osteoarthritis of the knee. 4. Subcutaneous edema about the knee.
[2024-02-19 18:27] VITALS: BP 158/89; PULSE 106; O2SAT 97
[2024-02-19 18:46] VITALS: BP 157/95; PULSE 104; O2SAT 91
== END 2024-02-19 20:04 | disposition home or self-care (01) ==
PROVIDERS: Emergency Provider Internal Medicine; PCP Family Medicine
DX: S80.212A Abrasion, left knee, initial encounter (principal); S80.811A Abrasion, right lower leg, initial encounter; S90.112A Contusion of left great toe without damage to nail, initial encounter; F17.210 Nicotine dependence, cigarettes, uncomplicated; I10 Essential (primary) hypertension; E11.9 Type 2 diabetes mellitus without complications; Z89.611 Acquired absence of right leg above knee; T87.81 Dehiscence of amputation stump; V00.811A Fall from moving wheelchair (powered), initial encounter
CPT/HCPCS: 73552; 73562; 73630; 73700; 99284

== ENCOUNTER → 2024-02-24 10:32 | Outpatient (BNVA) | payer MEDICAID, SELFPAY | PROVIDERS: PCP Family Medicine; Visit Provider Family Medicine | DX: I10 Essential (primary) hypertension (principal); E11.52 Type 2 diabetes mellitus with diabetic peripheral angiopathy with gangrene; Z79.4 Long term (current) use of insulin | CPT/HCPCS: 80053; 83036; 85025 ==

== ENCOUNTER 2024-03-22 06:49 | Outpatient (CLI) | payer MEDICAID, SELFPAY ==
--- NOTE | 2024-03-22 07:15 | MR_ITS ---
WS: [id number] MRI LEFT KNEE NONCONTRAST TECHNIQUE: Axial PD, coronal PD fat sat, coronal PD, sagittal PD, and sagittal PD fat-sat images obta ined. CLINICAL INFORMATION: left knee pain, p/o left knee arthroscopy COMPARISON: 2021 FINDINGS: Postoperative changes are new since the prior MRI 01/18/2022. Severe tricompartment arthritis appears progressed since 2021. Distal quadriceps and patella tendons are intact. Moderate joint effusion. Dif fuse subcutaneous edema about the knee. Hypertrophic patella. ACL and PCL are intact. Chronic thinning of the medial and lateral meniscus. Chronic intrasubstance s ignal normality involving the posterior horn medial meniscus. No acute appearing meniscal tears. Medi al and lateral collateral ligaments appear intact. Grade II chondromalacia patella. Grade 2-3 chondro malacia involving the medial and lateral joint compartments. Normal popliteal fossa. No other acute f indings. IMPRESSION: 1. Severe tricompartmental arthritis appears slightly progressed since 2021. 2. Moderate joint effusion with diffuse subcutaneous edema about the knee. 3. ACL and PCL appear intact. 4. No acute appearing meniscal tears. 5. Grade 2-3 chondromalacia patella. 6. Grade 2-3 chondromalacia involving the medial and lateral joint compartments. Outbridge grading: grade III: partial-thickness cartilage loss with focal ulceration
== END 2024-03-22 06:50 | disposition home or self-care (01) ==
LOC: RAD 06:49
PROVIDERS: PCP Family Medicine; Visit Provider Student in an Organized Health Care Education/Training Program
DX: M25.562 Pain in left knee (principal); M67.52 Plica syndrome, left knee; M94.262 Chondromalacia, left knee; M25.462 Effusion, left knee; M17.12 Unilateral primary osteoarthritis, left knee
CPT/HCPCS: 73721

== ENCOUNTER → 2024-03-23 07:52 | Outpatient (BNVA) | payer MEDICAID, SELFPAY | PROVIDERS: PCP Family Medicine; Visit Provider Thoracic Surgery (Cardiothoracic Vascular Surgery) | DX: I96 Gangrene, not elsewhere classified (principal); T81.31XD Disruption of external operation (surgical) wound, not elsewhere classified, subsequent encounter; Y83.8 Other surgical procedures as the cause of abnormal reaction of the patient, or of later complication, without mention of misadventure at the time of the procedure | CPT/HCPCS: 11043; 97597; 99213 ==

== ENCOUNTER → 2024-04-06 08:46 | Outpatient (BNVA) | payer MEDICAID, SELFPAY | PROVIDERS: PCP Family Medicine; Visit Provider Thoracic Surgery (Cardiothoracic Vascular Surgery) | DX: I96 Gangrene, not elsewhere classified (principal); T81.31XD Disruption of external operation (surgical) wound, not elsewhere classified, subsequent encounter; Y83.8 Other surgical procedures as the cause of abnormal reaction of the patient, or of later complication, without mention of misadventure at the time of the procedure | CPT/HCPCS: 11042; 97597; A6220 ==

== ENCOUNTER → 2024-04-13 09:50 | Outpatient (BNVA) | payer MEDICAID, SELFPAY | PROVIDERS: PCP Family Medicine; Visit Provider Thoracic Surgery (Cardiothoracic Vascular Surgery) | DX: I96 Gangrene, not elsewhere classified (principal); T87.81 Dehiscence of amputation stump; Y83.8 Other surgical procedures as the cause of abnormal reaction of the patient, or of later complication, without mention of misadventure at the time of the procedure; Z89.511 Acquired absence of right leg below knee | CPT/HCPCS: 11042; 97597; A6220 ==

== ENCOUNTER → 2024-04-20 08:06 | Outpatient (BNVA) | payer MEDICAID, SELFPAY | PROVIDERS: PCP Family Medicine; Visit Provider Thoracic Surgery (Cardiothoracic Vascular Surgery) | DX: I96 Gangrene, not elsewhere classified (principal); T87.81 Dehiscence of amputation stump; Y83.8 Other surgical procedures as the cause of abnormal reaction of the patient, or of later complication, without mention of misadventure at the time of the procedure; Z89.511 Acquired absence of right leg below knee | CPT/HCPCS: 11042; 97597 ==

== ENCOUNTER → 2024-04-27 07:53 | Outpatient (BNVA) | payer MEDICAID, SELFPAY | PROVIDERS: PCP Family Medicine; Visit Provider Thoracic Surgery (Cardiothoracic Vascular Surgery) | DX: I96 Gangrene, not elsewhere classified (principal); T87.81 Dehiscence of amputation stump; Y83.8 Other surgical procedures as the cause of abnormal reaction of the patient, or of later complication, without mention of misadventure at the time of the procedure; Z89.511 Acquired absence of right leg below knee | CPT/HCPCS: 97597; A6220 ==

== ENCOUNTER → 2024-05-03 08:15 | Outpatient (BNVA) | payer MEDICAID, SELFPAY | PROVIDERS: PCP Family Medicine; Visit Provider Student in an Organized Health Care Education/Training Program | DX: M17.12 Unilateral primary osteoarthritis, left knee (principal); S88.111A Complete traumatic amputation at level between knee and ankle, right lower leg, initial encounter; X58.XXXA Exposure to other specified factors, initial encounter | CPT/HCPCS: 99213 ==

== ENCOUNTER → 2024-05-04 08:52 | Outpatient (BNVA) | payer MEDICAID, SELFPAY | PROVIDERS: PCP Family Medicine; Visit Provider Thoracic Surgery (Cardiothoracic Vascular Surgery) | DX: I96 Gangrene, not elsewhere classified (principal); T87.81 Dehiscence of amputation stump; Y83.8 Other surgical procedures as the cause of abnormal reaction of the patient, or of later complication, without mention of misadventure at the time of the procedure; Z89.511 Acquired absence of right leg below knee | CPT/HCPCS: 97597; A6021 ==

== ENCOUNTER → 2024-05-11 09:09 | Outpatient (BNVA) | payer MEDICAID, SELFPAY | PROVIDERS: PCP Family Medicine; Visit Provider Thoracic Surgery (Cardiothoracic Vascular Surgery) | DX: I96 Gangrene, not elsewhere classified (principal); T87.81 Dehiscence of amputation stump; Y83.8 Other surgical procedures as the cause of abnormal reaction of the patient, or of later complication, without mention of misadventure at the time of the procedure; Z89.511 Acquired absence of right leg below knee | CPT/HCPCS: 97597; A6220; A6248 ==

== ENCOUNTER → 2024-05-31 10:31 | Outpatient (BNVA) | payer MEDICAID, SELFPAY | PROVIDERS: PCP Family Medicine; Visit Provider Thoracic Surgery (Cardiothoracic Vascular Surgery) | DX: T87.81 Dehiscence of amputation stump (principal); Y83.8 Other surgical procedures as the cause of abnormal reaction of the patient, or of later complication, without mention of misadventure at the time of the procedure; Z89.511 Acquired absence of right leg below knee; L98.491 Non-pressure chronic ulcer of skin of other sites limited to breakdown of skin | CPT/HCPCS: 97597; A6021; A6220 ==

== ENCOUNTER → 2024-06-08 07:52 | Outpatient (BNVA) | payer MEDICAID, SELFPAY | PROVIDERS: PCP Family Medicine; Visit Provider Thoracic Surgery (Cardiothoracic Vascular Surgery) | DX: I96 Gangrene, not elsewhere classified (principal); T87.81 Dehiscence of amputation stump; Y83.8 Other surgical procedures as the cause of abnormal reaction of the patient, or of later complication, without mention of misadventure at the time of the procedure; Z89.511 Acquired absence of right leg below knee; L98.491 Non-pressure chronic ulcer of skin of other sites limited to breakdown of skin | CPT/HCPCS: 97597 ==

== ENCOUNTER → 2024-06-20 08:00 | Outpatient (BNVA) | payer MEDICAID, SELFPAY | PROVIDERS: PCP Family Medicine; Visit Provider Thoracic Surgery (Cardiothoracic Vascular Surgery) | DX: T87.81 Dehiscence of amputation stump (principal); I96 Gangrene, not elsewhere classified; Y83.8 Other surgical procedures as the cause of abnormal reaction of the patient, or of later complication, without mention of misadventure at the time of the procedure; Z89.511 Acquired absence of right leg below knee | CPT/HCPCS: 97597 ==

== ENCOUNTER → 2024-06-27 08:09 | Outpatient (BNVA) | payer MEDICAID, SELFPAY | PROVIDERS: PCP Family Medicine; Visit Provider Thoracic Surgery (Cardiothoracic Vascular Surgery) | DX: I96 Gangrene, not elsewhere classified (principal); T87.81 Dehiscence of amputation stump; Y83.8 Other surgical procedures as the cause of abnormal reaction of the patient, or of later complication, without mention of misadventure at the time of the procedure; Z89.511 Acquired absence of right leg below knee | CPT/HCPCS: 97597; A6021; A6248 ==

== ENCOUNTER → 2024-07-04 08:00 | Outpatient (BNVA) | payer MEDICAID, SELFPAY | PROVIDERS: PCP Family Medicine; Visit Provider Thoracic Surgery (Cardiothoracic Vascular Surgery) | DX: I96 Gangrene, not elsewhere classified (principal); T87.81 Dehiscence of amputation stump; Y83.8 Other surgical procedures as the cause of abnormal reaction of the patient, or of later complication, without mention of misadventure at the time of the procedure; Z89.511 Acquired absence of right leg below knee | CPT/HCPCS: 97597 ==

== ENCOUNTER → 2024-07-11 07:49 | Outpatient (BNVA) | payer MEDICAID, SELFPAY | PROVIDERS: PCP Family Medicine; Visit Provider Thoracic Surgery (Cardiothoracic Vascular Surgery) | DX: I96 Gangrene, not elsewhere classified (principal); T87.81 Dehiscence of amputation stump; Z89.511 Acquired absence of right leg below knee; E11.621 Type 2 diabetes mellitus with foot ulcer; L97.521 Non-pressure chronic ulcer of other part of left foot limited to breakdown of skin | CPT/HCPCS: 97597; A6021; A6219; A6220 ==

== ENCOUNTER → 2024-07-18 07:59 | Outpatient (BNVA) | payer MEDICAID, SELFPAY | PROVIDERS: PCP Family Medicine; Visit Provider Thoracic Surgery (Cardiothoracic Vascular Surgery) | DX: E11.52 Type 2 diabetes mellitus with diabetic peripheral angiopathy with gangrene (principal); E11.621 Type 2 diabetes mellitus with foot ulcer; L97.521 Non-pressure chronic ulcer of other part of left foot limited to breakdown of skin; T87.81 Dehiscence of amputation stump; Y83.8 Other surgical procedures as the cause of abnormal reaction of the patient, or of later complication, without mention of misadventure at the time of the procedure; Z89.511 Acquired absence of right leg below knee | CPT/HCPCS: 97597 ==

== ENCOUNTER → 2024-07-25 07:56 | Outpatient (BNVA) | payer MEDICAID, SELFPAY | PROVIDERS: PCP Family Medicine; Visit Provider Thoracic Surgery (Cardiothoracic Vascular Surgery) | DX: T87.81 Dehiscence of amputation stump (principal); Y83.8 Other surgical procedures as the cause of abnormal reaction of the patient, or of later complication, without mention of misadventure at the time of the procedure; Z89.511 Acquired absence of right leg below knee; E11.52 Type 2 diabetes mellitus with diabetic peripheral angiopathy with gangrene; E11.621 Type 2 diabetes mellitus with foot ulcer; L97.521 Non-pressure chronic ulcer of other part of left foot limited to breakdown of skin | CPT/HCPCS: 97597 ==

== ENCOUNTER → 2024-08-08 07:52 | Outpatient (BNVA) | payer MEDICAID, SELFPAY | PROVIDERS: PCP Family Medicine; Visit Provider Thoracic Surgery (Cardiothoracic Vascular Surgery) | DX: T87.81 Dehiscence of amputation stump (principal); Y83.8 Other surgical procedures as the cause of abnormal reaction of the patient, or of later complication, without mention of misadventure at the time of the procedure; Z89.511 Acquired absence of right leg below knee; E11.52 Type 2 diabetes mellitus with diabetic peripheral angiopathy with gangrene; E11.621 Type 2 diabetes mellitus with foot ulcer; L97.521 Non-pressure chronic ulcer of other part of left foot limited to breakdown of skin; Z09 Encounter for follow-up examination after completed treatment for conditions other than malignant neoplasm | CPT/HCPCS: 97597 ==

== ENCOUNTER → 2024-09-08 07:46 | Outpatient (BNVA) | payer MEDICAID, SELFPAY | PROVIDERS: PCP Family Medicine; Visit Provider Thoracic Surgery (Cardiothoracic Vascular Surgery) | DX: T87.81 Dehiscence of amputation stump (principal); Y83.8 Other surgical procedures as the cause of abnormal reaction of the patient, or of later complication, without mention of misadventure at the time of the procedure; Z89.511 Acquired absence of right leg below knee; E11.52 Type 2 diabetes mellitus with diabetic peripheral angiopathy with gangrene; E11.621 Type 2 diabetes mellitus with foot ulcer; L97.521 Non-pressure chronic ulcer of other part of left foot limited to breakdown of skin | CPT/HCPCS: 97597; A6248 ==

== ENCOUNTER → 2024-09-19 08:00 | Outpatient (BNVA) | payer MEDICAID, SELFPAY | PROVIDERS: PCP Family Medicine; Visit Provider Thoracic Surgery (Cardiothoracic Vascular Surgery) | DX: T87.81 Dehiscence of amputation stump (principal); Y83.8 Other surgical procedures as the cause of abnormal reaction of the patient, or of later complication, without mention of misadventure at the time of the procedure; E11.52 Type 2 diabetes mellitus with diabetic peripheral angiopathy with gangrene; E11.621 Type 2 diabetes mellitus with foot ulcer; L97.521 Non-pressure chronic ulcer of other part of left foot limited to breakdown of skin | CPT/HCPCS: 97597; A6220; A6248 ==

== ENCOUNTER → 2024-09-26 08:47 | Outpatient (BNVA) | payer MEDICAID, SELFPAY | PROVIDERS: PCP Family Medicine; Visit Provider Thoracic Surgery (Cardiothoracic Vascular Surgery) | DX: E11.621 Type 2 diabetes mellitus with foot ulcer; E11.52 Type 2 diabetes mellitus with diabetic peripheral angiopathy with gangrene; L97.421 Non-pressure chronic ulcer of left heel and midfoot limited to breakdown of skin; T87.81 Dehiscence of amputation stump; Y83.8 Other surgical procedures as the cause of abnormal reaction of the patient, or of later complication, without mention of misadventure at the time of the procedure; Z89.511 Acquired absence of right leg below knee; Z09 Encounter for follow-up examination after completed treatment for conditions other than malignant neoplasm | CPT/HCPCS: 97597; A6212 ==

== ENCOUNTER → 2024-10-17 08:06 | Outpatient (BNVA) | payer MEDICAID, SELFPAY | PROVIDERS: PCP Family Medicine; Visit Provider Thoracic Surgery (Cardiothoracic Vascular Surgery) | DX: I96 Gangrene, not elsewhere classified (principal); T87.81 Dehiscence of amputation stump; Y83.8 Other surgical procedures as the cause of abnormal reaction of the patient, or of later complication, without mention of misadventure at the time of the procedure; Z09 Encounter for follow-up examination after completed treatment for conditions other than malignant neoplasm | CPT/HCPCS: 97597 ==

== ENCOUNTER → 2024-10-24 08:11 | Outpatient (BNVA) | payer MEDICAID, SELFPAY | PROVIDERS: PCP Family Medicine; Visit Provider Thoracic Surgery (Cardiothoracic Vascular Surgery) | DX: T87.81 Dehiscence of amputation stump (principal); Y83.8 Other surgical procedures as the cause of abnormal reaction of the patient, or of later complication, without mention of misadventure at the time of the procedure; Z89.511 Acquired absence of right leg below knee | CPT/HCPCS: 97597; A6197; A6212 ==

== ENCOUNTER → 2024-11-07 08:23 | Outpatient (BNVA) | payer MEDICAID, SELFPAY | PROVIDERS: PCP Family Medicine; Visit Provider Thoracic Surgery (Cardiothoracic Vascular Surgery) | DX: Z09 Encounter for follow-up examination after completed treatment for conditions other than malignant neoplasm (principal); Z87.2 Personal history of diseases of the skin and subcutaneous tissue | CPT/HCPCS: 99212 ==

== ENCOUNTER 2024-11-08 11:50 | Outpatient (CLI) | payer MEDICAID, SELFPAY ==
--- NOTE | 2024-11-08 11:52 | XRR_ITS ---
PROCEDURE INFORMATION: Exam: XR Abdomen Exam date and time: 11/08/2024 11:59 AM Age: 54 years old Clinical indication: Prior surgery; Surgery date: 6+ months; Surgery type: Gb, hysterectomy; Patient HX: Diarrhea x 2 wks, constipation x 1 wk following; Additional info: No regular bowel movement p 2 weeks TECHNIQUE: Imaging protocol: Radiologic exam of the abdomen. Views: Frontal supine view of the abdomen. 1 View. COMPARISON: CR XR KUB [id number] 10/06/2022 10:50 AM FINDINGS: Gastrointestinal tract: Moderate colonic stool burden. No dilated small bowel loops. Organs: Status post cholecystectomy. Bones/joints: Status post fusion of L4-L5. XR/XR abdomen 1V* [id number] IMPRESSION: Moderate colonic stool burden.
== END 2024-11-08 11:51 | disposition home or self-care (01) ==
LOC: RAD 11:51
PROVIDERS: PCP Family Medicine; Visit Provider Family Medicine
DX: K59.00 Constipation, unspecified (principal); Z90.49 Acquired absence of other specified parts of digestive tract
CPT/HCPCS: 74018

== ENCOUNTER → 2024-12-20 11:03 | Outpatient (BNVA) | payer MEDICAID, SELFPAY | PROVIDERS: PCP Family Medicine; Visit Provider Family Medicine | DX: I10 Essential (primary) hypertension (principal); E11.52 Type 2 diabetes mellitus with diabetic peripheral angiopathy with gangrene; Z79.4 Long term (current) use of insulin | CPT/HCPCS: 80053; 80061; 83036; 83721; 85025 ==

== ENCOUNTER → 2025-01-04 15:04 | Outpatient (BNVA) | payer MEDICAID, SELFPAY | PROVIDERS: PCP Family Medicine; Visit Provider Student in an Organized Health Care Education/Training Program | DX: M17.12 Unilateral primary osteoarthritis, left knee (principal); Z89.511 Acquired absence of right leg below knee | CPT/HCPCS: 73560; 73565; 99213 ==

== ENCOUNTER → 2025-01-11 16:31 | Outpatient (BNVA) | payer MEDICAID, SELFPAY | PROVIDERS: PCP Family Medicine; Visit Provider Podiatrist Foot & Ankle Surgery | DX: E11.621 Type 2 diabetes mellitus with foot ulcer (principal); L97.521 Non-pressure chronic ulcer of other part of left foot limited to breakdown of skin; E11.52 Type 2 diabetes mellitus with diabetic peripheral angiopathy with gangrene; Z79.4 Long term (current) use of insulin; L03.90 Cellulitis, unspecified; L02.612 Cutaneous abscess of left foot | CPT/HCPCS: 10060; 87070; 87075; 87205; 99213 ==

== ENCOUNTER → 2025-01-24 06:49 | Outpatient (BNVA) | payer MEDICAID, SELFPAY | PROVIDERS: PCP Family Medicine; Visit Provider Podiatrist Foot & Ankle Surgery | DX: E11.621 Type 2 diabetes mellitus with foot ulcer (principal); L97.522 Non-pressure chronic ulcer of other part of left foot with fat layer exposed; L97.521 Non-pressure chronic ulcer of other part of left foot limited to breakdown of skin; E11.52 Type 2 diabetes mellitus with diabetic peripheral angiopathy with gangrene; Z79.4 Long term (current) use of insulin; L03.90 Cellulitis, unspecified; L02.612 Cutaneous abscess of left foot; Z89.511 Acquired absence of right leg below knee; L03.116 Cellulitis of left lower limb | CPT/HCPCS: 99213 ==

== ENCOUNTER 2025-01-30 09:41 | Outpatient (CLI) | payer MEDICAID, SELFPAY ==
--- NOTE | 2025-01-30 09:51 | XR_ITS ---
WS: [id number] XR foot LT min 3V* [id number] REASON FOR EXAM: E11.621 - Type 2 diabetes mellitus with foot ulcer FINDINGS: No fracture or focal bone lesion. No bone erosion or periosteal reaction. Joint spaces of the forefoot, midfoot, and hindfoot are intact and relatively well preserved. Small anterior calcaneal enthesophyte. XR/XR foot LT min 3V* [id number] IMPRESSION: No acute bone or joint abnormality.
== END 2025-01-30 09:42 | disposition home or self-care (01) ==
PROVIDERS: PCP Family Medicine; Visit Provider Thoracic Surgery (Cardiothoracic Vascular Surgery)
DX: E11.621 Type 2 diabetes mellitus with foot ulcer (principal); L97.509 Non-pressure chronic ulcer of other part of unspecified foot with unspecified severity; G62.9 Polyneuropathy, unspecified; M77.32 Calcaneal spur, left foot; Z89.511 Acquired absence of right leg below knee
CPT/HCPCS: 73630; 97597; 99203

== ENCOUNTER → 2025-02-06 07:57 | Outpatient (BNVA) | payer MEDICAID, SELFPAY | PROVIDERS: PCP Family Medicine; Visit Provider Thoracic Surgery (Cardiothoracic Vascular Surgery) | DX: E11.621 Type 2 diabetes mellitus with foot ulcer (principal); L97.522 Non-pressure chronic ulcer of other part of left foot with fat layer exposed; E11.622 Type 2 diabetes mellitus with other skin ulcer; L97.822 Non-pressure chronic ulcer of other part of left lower leg with fat layer exposed; Z89.511 Acquired absence of right leg below knee; G62.9 Polyneuropathy, unspecified | CPT/HCPCS: 11042; 97597 ==

== ENCOUNTER → 2025-02-10 07:44 | Outpatient (BNVA) | payer MEDICAID, SELFPAY | PROVIDERS: PCP Family Medicine; Visit Provider Internal Medicine | DX: E11.52 Type 2 diabetes mellitus with diabetic peripheral angiopathy with gangrene (principal); Z79.4 Long term (current) use of insulin; E78.5 Hyperlipidemia, unspecified; I63.9 Cerebral infarction, unspecified; E11.59 Type 2 diabetes mellitus with other circulatory complications; I25.10 Atherosclerotic heart disease of native coronary artery without angina pectoris; E11.42 Type 2 diabetes mellitus with diabetic polyneuropathy | CPT/HCPCS: 99214 ==

== ENCOUNTER → 2025-02-20 08:13 | Outpatient (BNVA) | payer MEDICAID, SELFPAY | PROVIDERS: PCP Family Medicine; Visit Provider Thoracic Surgery (Cardiothoracic Vascular Surgery) | DX: E11.52 Type 2 diabetes mellitus with diabetic peripheral angiopathy with gangrene (principal); E11.621 Type 2 diabetes mellitus with foot ulcer; L97.521 Non-pressure chronic ulcer of other part of left foot limited to breakdown of skin; L03.116 Cellulitis of left lower limb | CPT/HCPCS: 97597 ==

== ENCOUNTER → 2025-03-23 13:26 | Outpatient (BNVA) | payer MEDICAID, SELFPAY | PROVIDERS: PCP Family Medicine; Visit Provider Podiatrist Foot & Ankle Surgery | DX: E11.621 Type 2 diabetes mellitus with foot ulcer (principal); L97.509 Non-pressure chronic ulcer of other part of unspecified foot with unspecified severity; L02.612 Cutaneous abscess of left foot; M79.672 Pain in left foot; E11.52 Type 2 diabetes mellitus with diabetic peripheral angiopathy with gangrene; Z79.4 Long term (current) use of insulin; L03.90 Cellulitis, unspecified; R60.9 Edema, unspecified | CPT/HCPCS: 29580; 99213 ==

== ENCOUNTER 2025-03-30 16:39 | Emergency (ER) | payer MEDICAID, SELFPAY ==
[2025-03-30 16:53] VITALS: BP 178/80; PULSE 110; RESP 20; TEMP 36.9; O2SAT 97
--- NOTE | 2025-03-30 18:43 | W.ED.WOUNDLC ---
HPI - Wound/Laceration General: Chief Complaint: Wound/Laceration Stated Complaint: left big toe injury Time Seen by Provider: 03/30/25 18:33 History of Present Illness: This patient presents to the emergency department because of pain in her left foot and leg as well as ongoing concerns about possible exposure to RSV from her nephew. 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 She has had this current ulcer at the plantar surface of her left great toe approximately 2 to 3 weeks has been followed by podiatry as well as wound care however she admitted she did not go to her wound care appointment today and therefore made her way to the emergency department. She states she has had subjective fevers and continued pain. Associated symptoms: Reports fever(s); Denies chills, nausea, syncope or vomiting Related Data Previous Rx's ?Medication ?Instructions ?Recorded blood sugar diagnostic (OneTouch #300 ea 07/17/23 Ultra Test strips) 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 meter (OneTouch #1 kit 08/19/23 Ultra2 Meter) 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 sensor (Dexcom G7 #9 ea 09/30/23 Sensor device) oxycodone 10 mg tablet 10 mg PO Q6H PRN pain 30 days #120 11/03/23 tabs duloxetine 20 mg capsule,delayed See Rx Instructions .Route 11/10/23 release .COMPLEX #30 caps multivitamin 1 tab PO DAILY@08 #90 tabs 11/10/23 pen needle, diabetic 31 gauge x #100 ea 11/10/23 3/16 (TechLITE Pen Needle) 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 meter,continuous #1 ea 01/12/24 (Dexcom G7 Director Engineering) oxycodone 10 mg tablet 10 mg PO Q6H PRN pain 30 days #120 01/12/24 tabs wheel chair ramp #1 ea 02/09/24 motorized wheel chair #1 ea 03/21/24 Hinged knee brace, right #1 ea 05/03/24 benzonatate 100 mg capsule 100 mg PO TID PRN cough 10 days 05/26/24 #30 caps furosemide 20 mg tablet 20 mg PO DAILY edema #30 tabs 09/12/24 potassium chloride 20 mEq 20 meq PO BID #180 tabs 09/12/24 tablet,extended release pentoxifylline 400 mg 400 mg PO TID #90 tabs 09/26/24 tablet,extended release prazosin 1 mg capsule 1 mg PO BID 30 days #60 caps 10/05/24 promethazine 25 mg tablet 12.5 mg (1/2 x 25 mg) PO BEDTIME 10/05/24 #30 tabs pregabalin 300 mg capsule (Lyrica) 300 mg PO BID@08,20 #60 caps 11/03/24 pantoprazole 40 mg tablet,delayed See Rx Instructions .Route 11/07/24 release .COMPLEX #30 tabs amitriptyline 25 mg tablet 25 mg PO BEDTIME #30 tabs 11/08/24 lactulose 20 gram/30 mL oral 20 g (30 mL) PO BID #1,200 mL 11/08/24 solution olanzapine 5 mg tablet (Zyprexa) 5 mg PO BID #60 tabs 11/08/24 fluconazole 150 mg tablet 150 mg PO Q72H #5 tabs 12/27/24 insulin regular hum U-500 conc 500 150 unit (0.3 mL) SUBCUT TID 30 12/27/24 unit/mL(3 mL) subcut pen (Humulin days #27 mL R U-500 (Conc) Insulin Kwikpen) prednisone 20 mg tablet 20 mg PO DAILY #15 tabs 01/04/25 ropinirole 2 mg tablet See Rx Instructions .Route 01/19/25 .COMPLEX #60 tabs techlite ultra thin 3/4 inch #100 ea 01/22/25 needles hydroxyzine HCl 25 mg tablet 25 mg PO BID PRN itching #30 tabs 01/30/25 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 meter,continuous #1 ea 02/10/25 (Dexcom G7 Director Engineering) 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 sensor (Dexcom G7 #3 ea 02/10/25 Sensor device) citalopram 40 mg tablet See Rx Instructions .Route 02/14/25 .COMPLEX #30 tabs sulfamethoxazole 800 1 tab PO BID #20 tabs 02/20/25 mg-trimethoprim 160 mg tablet (Bactrim DS) atorvastatin 40 mg tablet See Rx Instructions .Route 03/28/25 .COMPLEX #30 tabs clopidogrel 75 mg tablet See Rx Instructions .Route 03/28/25 .COMPLEX #30 tabs tizanidine 4 mg tablet See Rx Instructions .Route 03/28/25 .COMPLEX #90 tabs doxycycline hyclate 100 mg capsule 100 mg PO BID 14 days #28 caps 03/30/25 Allergies Allergy/AdvReac Type Severity Reaction Status Date / Time ketorolac (From Toradol) Allergy Intermediate rash Verified 03/23/25 13:30 morphine Allergy Intermediate rash Verified 03/23/25 13:30 nitrofurantoin (From Allergy Intermediate rash Verified 03/23/25 13:30 Macrobid) Penicillins Allergy Intermediate hives Verified 03/23/25 13:30 acetaminophen (From Tylenol) Allergy ADR-Nausea Verified 03/23/25 13:30 adhesive Allergy rash Verified 03/23/25 13:30 ibuprofen Allergy ADR-Gastrointestinal Verified 03/23/25 13:30 Upset Review of Systems Const: Reports: fever(s); Denies: chills Eyes: Denies: change in vision ENMT: Denies: throat pain, odynophagia, nasal discharge or nasal congestion Card: Denies: palpitations, syncope or pre-syncope Resp: Reports: non-productive cough GI: Denies: abdominal pain, nausea, vomiting or diarrhea : Denies: flank pain, difficulty voiding, dysuria or urinary frequency Musc: Reports: extremity pain; Denies: neck pain or back pain Skin/Breast: Reports: non-healing lesions Neuro: Denies: headache(s) or weakness in extremities Renny/Lymph: Denies: easy bruising or easy bleeding PFSH ED PFSH: Medical History Postoperative bleeding from incision Chondromalacia, knee Plica of knee Medial meniscus tear Acute pain of left knee Gastroparesis due to DM Acute hyperglycemia Arthritis of hand, left Sepsis Pyelonephritis Hypertension Depression Diabetes Insomnia Ulnar nerve impingement Lumbar post-laminectomy syndrome Spinal stenosis, cervical region Surgical History H/O esophagogastroduodenoscopy (05/23/21) H/O flexible sigmoidoscopy (05/23/21) Status post laparoscopic cholecystectomy H/O carpal tunnel repair History of lumbar fusion H/O neck surgery H/O rotator cuff surgery History of hysterectomy H/O tubal ligation S/P left knee arthroscopy Family History Other CAD (coronary artery disease) Cancer Stroke Denies family history of Anesthesia complication Bleeding disorder Social History Smoking and tobacco/nicotine status: never used tobacco/nicotine Second hand smoke exposure: Yes Alcohol intake: former Substance/Drug Use: never Physical Exam Narrative: EXAM NARRATIVE: The patient appears to be in no acute distress she answers questions in a goal-directed fashion and is cooperative. Const: COMMON NORMALS: patient oriented x3 NUTRITIONAL APPEARANCE: overweight HENMT: COMMON NORMALS: normocephalic, Normal nasal mucous membranes and turbinates present, moist oral mucous membranes and oropharynx normal HEAD & SCALP: normocephalic NOSE: Normal nasal mucous membranes and turbinates present Eye: COMMON NORMALS: Equal, round and reactive pupils present, EOMs intact bilaterally and conjunctivae normal CONJUNCTIVA: Yes conjunctivae normal PUPIL: Yes Equal, round and reactive pupils present Neck/C-Spine: COMMON NORMALS: full ROM, no lymphadenopathy and no JVD Resp: COMMON NORMALS: normal respiratory effort, No retractions, No use of accessory muscles and clear to auscultation bilaterally EFFORT & INSPECTION: Yes able to speak in complete sentences AUSCULTATION: clear to auscultation bilaterally Cardio: COMMON NORMALS: no JVD, regular rate, regular rhythm, No murmurs present (Cardio) and Peripheral pulses 2+ throughout (Right lower extremity pulses are absent due to amputation, the left lower e) RATE: regular rate RHYTHM: regular rhythm PERIPHERAL PULSES: Peripheral pulses 2+ throughout (Right lower extremity pulses are absent due to amputation, the left lower e) GI: COMMON NORMALS: Normal to inspection, nondistended, normoactive bowel sounds present and Soft to palpation PALPATION: Yes Soft to palpation Back/Pelvis: COMMON NORMALS: no thoracic nor lumbar tenderness and thoraco-lumbar ROM normal Extremity: OTHER: She has a right BKA and the stump appears to be intact well-healing without any drainage erythema etc. The left lower extremity is remarkable for some nonpitting edema around the ankle and foot. She has a plantar eschar on the left great toe. There does not appear to be any drainage it appears to be dry. She has no ascending erythema or lymphangitis noted. Neuro: COMMON NORMALS: patient oriented x3, moves all extremities and no focal motor deficits Psych: COMMON NORMALS: mental status grossly normal Skin: NARRATIVE SKIN EXAM: Right great toe plantar surface ulcer as noted Course Reevaluation(s): Reevaluation #1: Discussed findings and implications and plan of care now at this time. She voiced understanding. I also admonished her strongly that she should not have any cigarettes in the home that she could potentially use when she gets a craving. This is complicated by the fact that other family members smoke. Also discussed the fact that she needs to get back to vascular surgery and we will place a case management consultation for that. She apparently has been seen by vascular surgery at [facility] previously but has not seen them for a year. He apparently has other chronic pain issues rugate regarding her low back as well as her left knee which apparently need orthopedic procedures as well so this unfortunate lady has multiple medical problems and it is further burden on her psychologically and socially given her transportation issues. Discussed plan of care and that also the doctor kalli will call her and arrange a follow-up appointment for this early next week. Also discussed return precautions for the emergency department. Time: 21:12 Consultations: Consultation #1: Reviewed with DR Gill who knows the patient. We discussed tentative plan of care. Time: 20:01 Vital Signs: Vital signs: Vital Signs Temperature 98.4 F 03/30/25 16:53 Pulse Rate 101 H 03/30/25 20:49 Respiratory Rate 18 03/30/25 20:49 Blood Pressure 191/78 03/30/25 20:49 Pulse Oximetry 97 03/30/25 20:49 Oxygen Delivery Me thod Room Air 03/30/25 20:49 MDM - Wound/Laceration Medical Decision Making This patient who has been followed by both podiatry and wound care for her plantar left toe ulcer now presents to the emergency department as noted in the HPI. She has been less and adherent to her regimens in the past and continues to to be so at this time. Initial appearance of the toe does not suggest a significant cellulitis at this time but will go ahead and get ancillary studies, arterial Doppler, consult with podiatry regarding their recommendations. The patient sed rate is slightly elevated at 26 which is consistent with her current presentation. She had a mild leukocytosis. Her plain films show similar appearance to prior x-rays per radiology report without any clear periosteal elevation etc. Her arterial Dopplers do show biphasic waveforms throughout her vasculature on the left leg with a diminished KARMEN per radiology. As per her discussion with podiatry we will plan on empirically covering her with doxycycline. She does not have any overt findings consistent with cellulitis or osteomyelitis this evening but it certainly reasonable given her history of progression and less than 100% adherence with treatment recommendations. She will also be admonished to discontinue her tobacco products. Will place a consult in with case management for vascular surgery referral as well. She is stable and suitable to be discharged for outpatient management which will be followed up with by podiatry with return precautions to the emergency department. Lab Data I reviewed the patient's lab results. 03/30/25 19:11 03/30/25 19:11 Radiology Impressions Duplex Scan Lower Extremity Artery 03/30/25 18:52 IMPRESSION: As above. Foot X-Ray 03/30/25 19:50 IMPRESSION: As above. Laboratory Results WBC 12.71 10^3/uL (3.29-11.43) H 03/30/25 19:11 RBC 5.03 10^6/uL (3.85-5.65) 03/30/25 19:11 Hgb 14.20 g/dL (11.27-16.99) 03/30/25 19:11 Hct 43.9 % (36-47) 03/30/25 19:11 MCV 87.3 fl (85-98) 03/30/25 19:11 MCH 28.2 pg (27-33) 03/30/25 19:11 MCHC 32.3 g/dL (30-55) 03/30/25 19:11 RDW 14.7 % (12.1-15.1) 03/30/25 19:11 Plt Count 155 10^3/cmm (157-399) L 03/30/25 19:11 MPV 11.2 fL (7.4-10.4) H 03/30/25 19:11 Neut % (Auto) 76.4 % 03/30/25 19:11 Lymph % (Auto) 17.3 % 03/30/25 19:11 Schuyler % (Auto) 4.1 % 03/30/25 19:11 Eos % (Auto) 0.8 % 03/30/25 19:11 Baso % (Auto) 0.5 % 03/30/25 19:11 Neut # (Auto) 9.72 10^3/uL (1.8-7.7) H 03/30/25 19:11 Lymph # (Auto) 2.2 10^3/uL (0.8-4.8) 03/30/25 19:11 Schuyler # (Auto) 0.5 10^3/uL (0.2-0.9) 03/30/25 19:11 Eos # (Auto) 0.1 10^3/uL (0.0-0.8) 03/30/25 19:11 Baso # (Auto) 0.1 10^3/uL (0.0-0.1) 03/30/25 19:11 Nucleated RBC % (auto) 0 % 03/30/25 19:11 Nucleated RBCs # 0.0 /100WBC 03/30/25 19:11 ESR 23 mm/hr (0-15) H 03/30/25 19:11 Sodium 135 mmol/L (136-145) L 03/30/25 19:11 Potassium 3.8 mmol/L (3.5-5.1) 03/30/25 19:11 Chloride 97 mmol/L (98-107) L 03/30/25 19:11 Carbon Dioxide 22 mmol/L (22-29) 03/30/25 19:11 Anion Gap 19.8 (5-19) H 03/30/25 19:11 BUN 16 mg/dL (6-20) 03/30/25 19:11 Creatinine 0.7 mg/dL (0.5-0.9) 03/30/25 19:11 GFR Calculation 86.9 mL/min (90-130) L 03/30/25 19:11 Glucose 353 mg/dL (65-115) H 03/30/25 19:11 POC Glucose 358 mg/dL (70-110) H 03/30/25 19:18 Calculated Osmolality 295 mOsm/kg (285-295) 03/30/25 19:11 Lactic Acid 3.0 mmol/L (0.5-2.2) H 03/30/25 19:11 Calcium 9.0 mg/dL (8.5-10.5) 03/30/25 19:11 Total Bilirubin 0.3 mg/dL (0.15-1.2) 03/30/25 19:11 AST 10 U/L (0-32) 03/30/25 19:11 ALT 8 U/L (0-33) 03/30/25 19:11 Alkaline Phosphatase 203 U/L (35-105) H 03/30/25 19:11 Total Protein 7.4 g/dL (6.6-8.7) 03/30/25 19:11 Albumin 3.8 g/dL (3.5-5.2) 03/30/25 19:11 Globulin 3.6 g/dL (1.3-4.6) 03/30/25 19:11 Influenza A (PCR) Negative (Negative) 03/30/25 19:21 Influenza Type B (PCR) Negative (Negative) 03/30/25 19:21 RSV (PCR) Negative (Negative) 03/30/25 19:21 SARS-CoV-2 (PCR) Negative (Negative) 03/30/25 19:21 All radiology interpretation(s) finalized by discharge Discharge Plan Discharge Patient Disposition: Home Clinical Impression: Diabetic foot ulcer, Peripheral arterial disease Condition: Stable Prescriptions: New doxycycline hyclate 100 mg capsule 100 mg PO BID 14 Days Qty: 28 0RF No Action prednisone 20 mg tablet 20 mg PO DAILY Qty: 15 0RF Rx Instructions: 60 mg X 3 days 40 mg X 2 days 20 mg X 2 days (DME) Dexcom G7 Sensor Device See Rx Instructions .Route Qty: 3 3RF Rx Instructions: change every 10 days (DME) Dexcom G7 Director Engineering Misc See Rx Instructions .Route Qty: 1 0RF Rx Instructions: As directed (DME) wheel chair ramp See Rx Instructions .Route .MEDSUPPLY Qty: 1 0RF Rx Instructions: As directed (DME) Hinged knee brace, right See Rx Instructions .Route .MEDSUPPLY Qty: 1 0RF Rx Instructions: As directed pentoxifylline 400 mg tablet extended release 400 mg PO TID Qty: 90 4RF Rx Instructions: must administer with a meal/food amitriptyline 25 mg tablet 25 mg PO BEDTIME Qty: 30 8RF olanzapine [Zyprexa] 5 mg tablet 5 mg PO BID Qty: 60 6RF lactulose 20 gram/30 mL solution 20 g PO BID Qty: 1200 1RF sulfamethoxazole-trimethoprim [Bactrim DS] 800-160 mg tablet 1 tab PO BID Qty: 20 0RF (DME) OneTouch Ultra Test Strip See Rx Instructions .Route Qty: 300 3RF Rx Instructions: to use in onetouch ultra meter TID to check blood sugar 90 supply (DME) 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 meter [OneTouch Ultra2 Meter] Mis See Rx Instructions .ROUTE .COMPLEX Qty: 1 0RF Dose Instruction: USE DIRECTED Rx Instructions: USE DIRECTED (DME) Dexcom G7 Sensor Device See Rx Instructions .ROUTE .MEDSUPPLY Qty: 9 0RF Rx Instructions: Change every 10days oxycodone 10 mg tablet 10 mg PO Q6H MDD 4 tabs PRN (Reason: pain) 30 Days Qty: 120 0RF duloxetine 20 mg capsule,delayed release(DR/EC) See Rx Instructions .ROUTE .COMPLEX Qty: 30 4RF Dose Instruction: TAKE ONE CAPSULE BY MOUTH EVERY DAY Rx Instructions: TAKE ONE CAPSULE BY MOUTH EVERY DAY multivitamin Tablet 1 tab PO DAILY@08 Qty: 90 4RF (DME) pen needle, diabetic [TechLITE Pen Needle] 31 gauge x 3/16 needle See Rx Instructions .ROUTE .COMPLEX Qty: 100 3RF Dose Instruction: USE DIRECTED Rx Instructions: USE DIRECTED oxycodone 10 mg tablet 10 mg PO Q6H PRN (Reason: pain) 30 Days Qty: 120 0RF (DME) Dexcom G7 [facility] See Rx Instructions .Route Qty: 1 0RF Rx Instructions: As directed Patient states needs 7 not 6 (DME) motorized wheel chair See Rx Instructions .Route .MEDSUPPLY Qty: 1 0RF Rx Instructions: Only mode of transportation. Patient does not drive. Home bound benzonatate 100 mg capsule 100 mg PO TID PRN (Reason: cough) 10 Days Qty: 30 1RF furosemide 20 mg tablet 20 mg PO DAILY Qty: 30 8RF potassium chloride 20 mEq tablet extended release 20 meq PO BID Qty: 180 3RF prazosin 1 mg capsule 1 mg PO BID 30 Days Qty: 60 10RF promethazine 25 mg tablet 12.5 mg PO BEDTIME Qty: 30 3RF Lyrica 300 mg capsule 300 mg PO BID@08,20 Qty: 60 5RF pantoprazole 40 mg tablet,delayed release (DR/EC) See Rx Instructions .ROUTE .COMPLEX Qty: 30 6RF Dose Instruction: TAKE 1 TABLET BY MOUTH EVERY DAY Rx Instructions: TAKE 1 TABLET BY MOUTH EVERY DAY fluconazole 150 mg tablet 150 mg PO Q72H Qty: 5 3RF Humulin R U-500 (Conc) Kwikpen 500 unit/mL (3 mL) insulin pen 150 unit SUBCUT TID 30 Days Qty: 27 7RF ropinirole 2 mg tablet See Rx Instructions .ROUTE .COMPLEX Qty: 60 1RF Dose Instruction: TAKE 1 TABLET BY MOUTH TWICE A DAY Rx Instructions: TAKE 1 TABLET BY MOUTH TWICE A DAY (DME) techlite ultra thin 3/4 inch needles See Rx Instructions .Route .MEDSUPPLY Qty: 100 5RF Rx Instructions: As directed hydroxyzine HCl 25 mg tablet 25 mg PO BID PRN (Reason: itching) Qty: 30 5RF citalopram 40 mg tablet See Rx Instructions .ROUTE .COMPLEX Qty: 30 4RF Dose Instruction: TAKE 1 TABLET BY MOUTH EVERY DAY Rx Instructions: TAKE 1 TABLET BY MOUTH EVERY DAY tizanidine 4 mg tablet See Rx Instructions .ROUTE .COMPLEX Qty: 90 1RF Dose Instruction: TAKE 1 TABLET BY MOUTH 3 TIMES A DAY NEEDED FOR MUSCLE SPASTICITY Rx Instructions: TAKE 1 TABLET BY MOUTH 3 TIMES A DAY NEEDED FOR MUSCLE SPASTICITY atorvastatin 40 mg tablet See Rx Instructions .ROUTE .COMPLEX Qty: 30 6RF Dose Instruction: TAKE 1 TABLET BY MOUTH EVERY DAY Rx Instructions: TAKE 1 TABLET BY MOUTH EVERY DAY clopidogrel 75 mg tablet See Rx Instructions .ROUTE .COMPLEX Qty: 30 7RF Dose Instruction: TAKE 1 TABLET BY MOUTH EVERY DAY Rx Instructions: TAKE 1 TABLET BY MOUTH EVERY DAY Discharge Orders: Discharge ED (Routine); Ordered 03/30/25 Ordered By: Silas Pierre Referrals: Yesica Bailey MD [Primary Care Provider, Family Practice] Jimmie Gill DPM [Physician, Podiatry] - 4-7 days Referral Note: as discussed Discharge Diet: Usual diet and Diabetic Discharge Activity: Increase activity as tolerated Patient Instructions: Opioid Safety, Pain Management Activity Restrictions/Additional Instructions: As we discussed we will be placing a referral for vascular surgery in [place] for follow-up. We have also prescribed a antibiotic of doxycycline to take. Dr. Vasquez will be contacting you for a follow-up appointment. If you develop any concerning symptoms such as high fever, increasing pain, discoloration or other concerns return to this or the nearest emergency department immediately. Do not smoke tobacco. Print Language: Northern Irish Coding Level of Care Code ED Skewer Up for Felicia Fermin
--- NOTE | 2025-03-30 18:52 | USR_ITS ---
PROCEDURE INFORMATION: Exam: US Duplex Left Lower Extremity Arteries Or Arterial Bypass Grafts Exam date and time: 03/30/2025 7:34 PM Age: 54 years old Clinical indication: Pain; Foot and toes; Left; Prior surgery; Surgery date: 6+ months; Surgery type: Right bka; Iddm x 20 years, long-term smoker, continues smoking. ; Additional info: Left foot ulcer TECHNIQUE: Imaging protocol: Left Real-time duplex scan of the arteries or arterial bypass grafts of the left lower extremity with 2-D tolbert scale, color Doppler flow and spectral waveform analysis. Images documented and saved. COMPARISON: CT knee LT wo con* [id number] 02/19/2024 5:39 PM FINDINGS: Left common femoral artery: Peak systolic velocity of 205 cm/sec with biphasic waveform. Left superficial femoral artery: Peak systolic velocity of 188 cm/sec proximally, 178 cm/sec mid, and 243 cm/sec distally. Biphasic waveform seen throughout. Left profunda femoris: Peak systolic velocity 192 cm/sec with biphasic waveform. Left popliteal artery: Peak systolic velocity of 213 cm/sec with biphasic waveform. Left calf/foot arteries: Left posterior tibial artery with a peak systolic velocity of 161 cm/sec with biphasic wave form. Left dorsalis pedis peak systolic velocity is 23 cm/sec with biphasic flow. Ankle to brachial index of 0.41 on the left. US/CV arterial duplex [facility] [id number] IMPRESSION: As above.
[2025-03-30 19:23] LABS: Glucose Point of Care 358 mg/dL (70-110)
[2025-03-30 19:23] LABS: Basophils # 0.1 10^3/uL (0.0-0.1); Basophils % 0.5 %; Eosinophils # 0.1 10^3/uL (0.0-0.8); Eosinophils % 0.8 %; Hematocrit 43.9 % (36-47); Lymphocytes # 2.2 10^3/uL (0.8-4.8); Lymphocytes % 17.3 %; Mean Corpuscular HGB Conc 32.3 g/dL (30-55); Mean Corpuscular Hemoglobin 28.2 pg (27-33); Mean Corpuscular Volume 87.3 fl (85-98); Mean Platelet Volume 11.2 fL (7.4-10.4); Monocytes # 0.5 10^3/uL (0.2-0.9); Monocytes % 4.1 %; Neutrophils # 9.72 10^3/uL (1.8-7.7); Neutrophils % 76.4 %; Nucleated Red Blood Cells % 0 %; Platelet Count 155 10^3/cmm (157-399); Red Blood Count 5.03 10^6/uL (3.85-5.65); Red Cell Distribution Width 14.7 % (12.1-15.1); White Blood Count 12.71 10^3/uL (3.29-11.43)
[2025-03-30 19:24] LABS: Erythrocyte Sedimentation Rate 23 mm/hr (0-15)
[2025-03-30 19:42] LABS: Alanine Aminotransferase 8 U/L (0-33); Albumin Level 3.8 g/dL (3.5-5.2); Alkaline Phosphatase 203 U/L (35-105); Anion Gap 19.8 (5-19); Aspartate Amino Transferase 10 U/L (0-32); Blood Urea Nitrogen 16 mg/dL (6-20); Carbon Dioxide 22 mmol/L (22-29); Chloride 97 mmol/L (98-107); Creatinine Clr Calc Pharmacy 115.4062; Globulin 3.6 g/dL (1.3-4.6); Glomerular Filtration Rate 86.9 mL/min (90-130); Glucose 353 mg/dL (65-115); Osmolality Calculated 295 mOsm/kg (285-295); Potassium 3.8 mmol/L (3.5-5.1); Sodium 135 mmol/L (136-145); Total Bilirubin 0.3 mg/dL (0.15-1.2); Total Protein 7.4 g/dL (6.6-8.7)
--- NOTE | 2025-03-30 19:50 | XRR_ITS ---
PROCEDURE INFORMATION: Exam: XR Left Foot Exam date and time: 03/30/2025 8:29 PM Age: 54 years old Clinical indication: Other: Ulcer; Additional info: Great toe ulcer eval for changes of osteo, etc TECHNIQUE: Imaging protocol: Radiologic exam of the left foot. Views: 3 or more views. COMPARISON: CR XR foot LT min 3V* [id number] 01/30/2025 9:56 AM FINDINGS: Bones/joints: Similar cortical irregularity involving the base of the 1st distal phalanx. However can not exclude early developing osteomyelitis. No acute displaced fracture or traumatic dislocation. Soft tissues: Soft tissue swelling of the dorsum of the foot at the midfoot. Soft tissue swelling of the great toe. XR/XR foot LT min 3V* [id number] IMPRESSION: As above.
[2025-03-30 20:08] LABS: Influenza A NEGATIVE (Negative); Influenza B NEGATIVE (Negative); Respiratory Syncytial Virus Ce NEGATIVE (Negative); SARS-CoV-2 PCR NEGATIVE (Negative)
[2025-03-30] MEDS: diphenhydrAMINE 50 mg/mL SDV 1mL 12.5 MG IVP (20:46)
[2025-03-30] MEDS: HYDROmorphone 0.5 MG/0.5 ML INJ IVP (20:47)
[2025-03-30 20:49] VITALS: BP 191/78; PULSE 101; RESP 18; O2SAT 97
[2025-03-30 21:06] LABS: Reflex Lactate Order REFLEX LACTIC ORDERD
[2025-03-30] MEDS: doxycycline 100 mg Tablet PO (21:25)
--- NOTE | 2025-03-31 07:21 | DCPLANNER ---
faxed referral packet to [facility] vascular surgery [phone]
== END 2025-03-30 21:27 | disposition home or self-care (01) ==
PROVIDERS: Emergency Provider Emergency Medicine; PCP Family Medicine
DX: I73.9 Peripheral vascular disease, unspecified (principal); M79.605 Pain in left leg; E11.621 Type 2 diabetes mellitus with foot ulcer; L97.529 Non-pressure chronic ulcer of other part of left foot with unspecified severity; Z11.52 Encounter for screening for COVID-19
CPT/HCPCS: 36415; 36416; 73630; 80053; 82962; 83605; 85025; 85651; 87637; 93926; 96374; 96375; 99284; J1171; J1200; J9999

== ENCOUNTER → 2025-04-05 08:59 | Outpatient (BNVA) | payer MEDICAID, SELFPAY | PROVIDERS: PCP Family Medicine; Visit Provider Thoracic Surgery (Cardiothoracic Vascular Surgery) | DX: E11.52 Type 2 diabetes mellitus with diabetic peripheral angiopathy with gangrene (principal); E11.621 Type 2 diabetes mellitus with foot ulcer; L97.521 Non-pressure chronic ulcer of other part of left foot limited to breakdown of skin; Z09 Encounter for follow-up examination after completed treatment for conditions other than malignant neoplasm | CPT/HCPCS: 11042; 97597; 99213; A6248 ==

== ENCOUNTER 2025-04-18 06:44 | Outpatient (CLI) | payer MEDICAID, SELFPAY ==
--- NOTE | 2025-04-18 07:00 | MR_ITS ---
WS: [id number] MRI LEFT FOOT WITH AND WITHOUT CONTRAST. COMPARISON: Radiograph 03/30/2025 Multiplanar, multisequence imaging is performed with and without contrast. MultiHance 20 mL IV. History: Nonhealing ulcers along the base of the toes. Soft tissue ulcer along the plantar surface of the foot at the level of the first interphalangeal joint. Area of soft tissue ulceration measures 2.7 x 0.8 cm. There is mild superficial enhancement. There is a focal area of enhancement involving the distal, medial first phalanx. There is associated cellulitis extending to the area of osteomyelitis. Soft tissue ulcer at the level of the first interphalangeal joint extends laterally to the base of the proximal second toe. There is no enhancement in the second toe. Decreased T1 signal in the proximal fifth phalanx with enhancement. There is adjacent soft tissue edema and enhancement. Consistent with osteomyelitis involving essentially the entire proximal phalanx of the fifth toe. Mild soft tissue edema surrounding the foot greatest along the dorsal foot. Mild narrowing of the first interphalangeal joint is secondary to arthritis. MR/MR foot LT wo/w con [id number] IMPRESSION: 1. Large soft tissue ulceration along the plantar surface centered at the firs t IP joint. 2. Cellulitis surrounding the first phalanx with a focal area of osteomyelitis involving the distal medial first phalanx. 3. Additional osteomyelitis involving nearly the entire proximal phalanx of th e fifth toe. Additional surrounding cellulitis.
[2025-04-18] MEDS: gadobenate dimeglumine 20 mL vial IV (07:47)
== END 2025-04-18 06:45 | disposition home or self-care (01) ==
PROVIDERS: PCP Family Medicine; Visit Provider Thoracic Surgery (Cardiothoracic Vascular Surgery)
DX: I73.9 Peripheral vascular disease, unspecified (principal); E11.621 Type 2 diabetes mellitus with foot ulcer; L97.509 Non-pressure chronic ulcer of other part of unspecified foot with unspecified severity
CPT/HCPCS: 73720; A9577

== ENCOUNTER → 2025-04-19 08:03 | Outpatient (BNVA) | payer MEDICAID, SELFPAY | PROVIDERS: PCP Family Medicine; Visit Provider Thoracic Surgery (Cardiothoracic Vascular Surgery) | DX: E11.621 Type 2 diabetes mellitus with foot ulcer (principal); E11.52 Type 2 diabetes mellitus with diabetic peripheral angiopathy with gangrene; L97.521 Non-pressure chronic ulcer of other part of left foot limited to breakdown of skin; L98.491 Non-pressure chronic ulcer of skin of other sites limited to breakdown of skin | CPT/HCPCS: 87070; 87176; 87205; 97597 ==

== ENCOUNTER 2025-04-25 12:16 | Outpatient (CLI) | payer MEDICAID, SELFPAY ==
[2025-04-25 13:47] LABS: Basophils # 0.1 10^3/uL (0.0-0.1); Basophils % 0.6 %; Eosinophils # 0.1 10^3/uL (0.0-0.8); Eosinophils % 1.5 %; Hematocrit 42.9 % (36-47); Lymphocytes # 2.7 10^3/uL (0.8-4.8); Lymphocytes % 32.7 %; Mean Corpuscular HGB Conc 32.4 g/dL (30-55); Mean Corpuscular Hemoglobin 27.5 pg (27-33); Mean Platelet Volume 11.6 fL (7.4-10.4); Monocytes # 0.4 10^3/uL (0.2-0.9); Monocytes % 5.1 %; Neutrophils # 4.75 10^3/uL (1.8-7.7); Neutrophils % 57.8 %; Nucleated Red Blood Cells % 0 %; Platelet Count 170 10^3/cmm (157-399); Red Blood Count 5.05 10^6/uL (3.85-5.65); Red Cell Distribution Width 14.6 % (12.1-15.1); White Blood Count 8.22 10^3/uL (3.29-11.43)
[2025-04-25 14:11] LABS: Anion Gap 18.7 (5-19); Blood Urea Nitrogen 16 mg/dL (6-20); C Reactive Protein 9.8 mg/L (0.0-4.9); Carbon Dioxide 24 mmol/L (22-29); Chloride 97 mmol/L (98-107); Glomerular Filtration Rate 86.9 mL/min (90-130); Glucose 284 mg/dL (65-115); Osmolality Calculated 291 mOsm/kg (285-295); Potassium 4.7 mmol/L (3.5-5.1); Sodium 135 mmol/L (136-145)
== END 2025-04-25 12:17 | disposition home or self-care (01) ==
LOC: LAB 12:18
PROVIDERS: PCP Family Medicine; Visit Provider Thoracic Surgery (Cardiothoracic Vascular Surgery)
DX: E11.621 Type 2 diabetes mellitus with foot ulcer (principal); L97.509 Non-pressure chronic ulcer of other part of unspecified foot with unspecified severity
CPT/HCPCS: 36415; 80048; 85025; 86140

== ENCOUNTER → 2025-04-26 15:27 | Outpatient (BNVA) | payer MEDICAID, SELFPAY | PROVIDERS: PCP Family Medicine; Visit Provider Thoracic Surgery (Cardiothoracic Vascular Surgery) | DX: E11.52 Type 2 diabetes mellitus with diabetic peripheral angiopathy with gangrene (principal); E11.621 Type 2 diabetes mellitus with foot ulcer; L97.521 Non-pressure chronic ulcer of other part of left foot limited to breakdown of skin; E11.622 Type 2 diabetes mellitus with other skin ulcer; L98.491 Non-pressure chronic ulcer of skin of other sites limited to breakdown of skin; Z89.511 Acquired absence of right leg below knee | CPT/HCPCS: 97597 ==

== ENCOUNTER → 2025-05-01 11:59 | Day surgery (SDC) | payer MEDICAID, SELFPAY ==
--- NOTE | 2025-05-01 11:55 | XR_ITS ---
WS: [id number] XR chest 1V portable [id number] REASON FOR EXAM: Post PICC insertion FINDINGS: A right arm PICC line has been placed. The tip of the catheter is at the mid SVC level. Instructions were given to the mri special procedures technologist to have the PICC line nurse advance the catheter the remaining 1.5 cm outside the skin. This repositioning will place it in the distal SVC appropriate for use. No additional imaging needed. XR/XR chest 1V portable [id number] IMPRESSION: Right arm PICC line as above.
[2025-05-01] MEDS: cefTRIAXone 1,000 mg SDV 1000 MG IVP (12:59)
== END ==
LOC: GILAB 11:59
PROVIDERS: PCP Family Medicine; Visit Provider Thoracic Surgery (Cardiothoracic Vascular Surgery)
DX: E11.69 Type 2 diabetes mellitus with other specified complication (principal); M86.172 Other acute osteomyelitis, left ankle and foot; E11.621 Type 2 diabetes mellitus with foot ulcer
CPT/HCPCS: 36573; 71045; 96374; J0696

== ENCOUNTER → 2025-05-04 09:57 | Day surgery (SDC) | payer MEDICAID, SELFPAY ==
--- NOTE | 2025-05-04 10:07 | XR_ITS ---
WS: [id number] XR chest 1V portable [id number] REASON FOR EXAM: Post PICC insertion FINDINGS: Left arm PICC line placement. The tip of the catheter was in the mid SVC. Ready allergy technologist was instructed over the phone to have the PICC line nurse advance a PICC line with follow-up chest x-ray. The final position the PICC line demonstrates the tip to be within the distal superior vena cava position appropriate for use. Appropriate positioning was relayed over the phone to the x-ray technologist who informed the PICC line nurse. XR/XR chest 1V portable [id number] IMPRESSION: Left arm PICC line placement as above.
[2025-05-04] MEDS: cefTRIAXone 1,000 mg SDV 1000 MG IVP (10:57)
--- NOTE | 2025-05-04 11:12 | PICC.NOTE ---
Single lumen PICC placed to left basilic vein. Referred to vascular access nurse for PICC placement due to pulling right PICC placed on 05/01/25 out. Pt continues to need IV antibiotics x 6 weeks for osteo. Risks and benefits discussed and informed consent obtained from pt. Left arm assessed with left basilic vein measuring 6.1 mm, straight, and apparent best choice for placement. Using sterile technique and MST, left basilic vein accessed x 1 stick. Mid-arm circumference measured 10 cm from left AC 40 cm. Trimmed cath 50 cm with 0 cm external length noted. CXR shows tip in distal SVC, in good position for use per radiologist. Line secured with stat-lock. Insertion site covered with Biopatch and TSM. Report given to Wound Care nurse, SCOTT Alberto. Cancer treatment center updated that PICC was reinserted and Rocephin 1 gm IVP given as ordered. Pt to resume daily infusions at [facility] at 0900 and to go to OPS for weekend infusions. Pt verbalized understanding.
== END ==
PROVIDERS: PCP Family Medicine; Visit Provider Thoracic Surgery (Cardiothoracic Vascular Surgery)
DX: T82.524A Displacement of infusion catheter, initial encounter (principal); M86.9 Osteomyelitis, unspecified; Y82.8 Other medical devices associated with adverse incidents
CPT/HCPCS: 36573; 71045; 96374; J0696

== ENCOUNTER 2025-05-05 18:06 | Inpatient (IN) | payer MEDICAID, SELFPAY ==
[2025-05-05] VITALS (9 sets, daily range): BP systolic 107–186; BP diastolic 55–91; PULSE 96–116; RESP 16–18; TEMP 36.5–36.6; O2SAT 92–96; BMI 31.3
--- NOTE | 2025-05-05 20:07 | XRR_ITS ---
PROCEDURE INFORMATION: Exam: XR Chest Exam date and time: 05/05/2025 8:19 PM Age: 54 years old Clinical indication: Other: Tachycardia; Prior surgery; Surgery date: 6+ months; Surgery type: Cervical fusion. Gb; Additional info: Possible sepsis TECHNIQUE: Imaging protocol: Radiologic exam of the chest. Views: 1 view. COMPARISON: CR XR chest 1V portable [id number] 05/04/2025 10:38 AM FINDINGS: Tubes, catheters and devices: Plate and screws overlie the midline cervical thoracic spine. Left arm PICC is demonstrated. The catheter tip overlies the expected distal SVC region. Lungs: [id number] bilateral perihilar and basilar interstitial lung opacities, suggesting pulmonary edema versus infiltrates. The pulmonary opacities are most prominent within the lower left lung. Pleural spaces: No pleural effusion. No pneumothorax. Heart/Mediastinum: The cardiac silhouette appears borderline prominent. Vasculature: Mild atherosclerotic calcification demonstrated within the aorta. Bones/joints: Generalized bony degenerative changes. Soft tissues: This study is severely limited by patient's large body habitus. XR/XR chest 1V portable [id number] IMPRESSION: 1. Borderline prominence of the cardiac silhouette. 2. Qcxx-yl-ktdcdauf pulmonary edema versus infiltrates.
--- NOTE | 2025-05-05 20:09 | ED_ITS ---
HPI - Nausea/Vomiting/Diarrhea 2 General: Chief complaint: Nausea/Vomiting/Diarrhea Stated complaint: cold flashes Time Seen by Provider: 05/05/25 19:57 History of Present Illness: Patient comes in with chills, nausea, vomiting, and diarrhea that started earlier today. Patient has a long complicated medical history including diabetes, recent diagnosis and treatment for cellulitis of bilateral lower extremities. Patient was started on IV vancomycin through a PICC line 3 days ago. Upon arrival here she is tachycardic. She has dry mucous membranes. Her abdomen is soft, nontender. However she does complain of generalized abdominal pain. I am concerned for sepsis. Sepsis start time will be 8:08 PM. Will start broad-spectrum antibiotics, check labs, blood cultures, give 30 cc/kg bolus of normal saline based on ideal body weight, check CT abdomen pelvis with IV contrast, give broad-spectrum antibiotics including Vanco and Zosyn, and reassess. Associated nausea: Yes Associated symtoms: Reports fatigue and nausea Related Data Previous Rx's ?Medication ?Instructions ?Recorded blood sugar diagnostic (OneTouch #300 ea 07/17/23 Ultra Test strips) 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 meter (OneTouch #1 kit 08/19/23 Ultra2 Meter) 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 sensor (Dexcom G7 #9 ea 09/30/23 Sensor device) oxycodone 10 mg tablet 10 mg PO Q6H PRN pain 30 day s #120 11/03/23 tabs duloxetine 20 mg capsule,delayed See Rx Instructions . Route 11/10/23 release .COMPLEX #30 caps multivitamin 1 tab PO DAILY@08 #90 tabs 1 01/11/23 pen needle, diabetic 31 gauge x #100 ea 11/10/23 3/ (TechLITE Pen Needle) 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,painter sign maintenance,cont #1 ea 01/12/24 (Dexcom G7 Ladle Filler) oxycodone 10 mg tablet 10 mg PO Q6H PRN pain 30 day s #120 01/12/24 tabs wheel chair ramp #1 ea 02/09/24 motorized wheel chair #1 ea 03/21/24 Hinged knee brace, right #1 ea 05/03/24 benzonatate 100 mg capsule 100 mg PO TID PRN cough 10 days 05/26/24 #30 caps furosemide 20 mg tablet 20 mg PO DAILY edema #30 tab s 09/12/24 potassium chloride 20 mEq 20 meq PO BID #180 tabs 08/30 03/23 tablet,extended release pentoxifylline 400 mg 400 mg PO TID #90 tabs 09/26 tablet,extended release prazosin 1 mg capsule 1 mg PO BID 30 days #60 caps 10/05/24 pantoprazole 40 mg tablet,delayed See Rx Instructions .Route 11/07/24 release .COMPLEX #30 tabs amitriptyline 25 mg tablet 25 mg PO BEDTIME #30 tabs 1 01/09/24 lactulose 20 gram/30 mL oral 20 g (30 mL) PO BID #1,20 0 mL 11/08/24 solution olanzapine 5 mg tablet (Zyprexa) 5 mg PO BID #60 tabs 11/08/24 fluconazole 150 mg tablet 150 mg PO Q72H #5 tabs 12/27 insulin regular hum U-500 conc 500 150 unit (0.3 mL) S UBCUT TID 30 12/27/24 unit/mL(3 mL) subcut pen (Humulin days #27 mL R U-500 (Conc) Insulin Kwikpen) prednisone 20 mg tablet 20 mg PO DAILY #15 tabs 04/23 techlite ultra thin 3/4 inch #100 ea 01/22/25 needles hydroxyzine HCl 25 mg tablet 25 mg PO BID PRN itching #30 tabs 01/30/25 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 sensor (Dexcom G7 #3 ea 02/10/25 Sensor device) 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,painter sign maintenance,cont #1 ea 02/10/25 (Dexcom G7 Ladle Filler) citalopram 40 mg tablet See Rx Instructions .Route 0 02/14/25 .COMPLEX #30 tabs sulfamethoxazole 800 1 tab PO BID #20 tabs mg-trimethoprim 160 mg tablet (Bactrim DS) atorvastatin 40 mg tablet See Rx Instructions .Route 0 03/28/25 .COMPLEX #30 tabs clopidogrel 75 mg tablet See Rx Instructions .Route 0 03/28/25 .COMPLEX #30 tabs tizanidine 4 mg tablet See Rx Instructions .Route 0 03/28/25 .COMPLEX #90 tabs ropinirole 2 mg tablet See Rx Instructions .Route 0 04/03/25 .COMPLEX #60 tabs sulfamethoxazole 800 1 tab PO BID #14 tabs mg-trimethoprim 160 mg tablet (Bactrim DS) levofloxacin 500 mg tablet 500 mg PO DAILY #21 tabs pregabalin 300 mg capsule (Lyrica) 300 mg PO BID@08,20 #60 caps 04/25/25 promethazine 25 mg tablet 12.5 mg (1/2 x 25 mg) PO BED TIME 04/25/25 #30 tabs hospital bed #1 ea 05/03/25 Allergies Allergy/AdvReac Type Severity Reaction Status Date / Time ketorolac (From Toradol) Allergy Intermediate rash Verified 03/23/25 13:30 morphine Allergy Intermediate rash Verified 03/23/25 13:30 nitrofurantoin (From Allergy Intermediate rash Verified 03/23/25 13:30 Macrobid) Penicillins Allergy Intermediate hives Verified 03/23/25 13:30 acetaminophen (From Tylenol) Allergy ADR-Nausea Verified 03/23/25 13:30 adhesive Allergy rash Verified 03/23/25 13:30 ibuprofen Allergy ADR-Gastrointestinal Verified 03/23/25 13:30 Upset Review of Systems 2 Const: Reports: chills, body aches and fatigue GI: Reports: abdominal pain, nausea, vomiting and diarrhea PFSH ED 2 PFSH: Medical History Postoperative bleeding from incision Chondromalacia, knee Plica of knee Medial meniscus tear Acute pain of left knee Gastroparesis due to DM Acute hyperglycemia Arthritis of hand, left Sepsis Pyelonephritis Hypertension Depression Diabetes Insomnia Ulnar nerve impingement Lumbar post-laminectomy syndrome Spinal stenosis, cervical region Surgical History H/O esophagogastroduodenoscopy (05/23/21) H/O flexible sigmoidoscopy (05/23/21) Status post laparoscopic cholecystectomy H/O carpal tunnel repair History of lumbar fusion H/O neck surgery H/O rotator cuff surgery History of hysterectomy H/O tubal ligation S/P left knee arthroscopy Family History Other CAD (coronary artery disease) Cancer Stroke Denies family history of Anesthesia complication Bleeding disorder Social History Smoking and tobacco/nicotine status: never used tobacco/nicotine Second hand smoke exposure: Yes Alcohol intake: former Substance/Drug Use: never Physical Exam 2 HENMT: COMMON NORMALS: normocephalic and atraumatic HEAD & SCALP: n ormocephalic and atraumatic Neck/C-Spine: COMMON NORMALS: supple Resp: COMMON NORMALS: normal respiratory effort, No retractions and No use of accessory muscles Cardio: RATE: tachycardic GI: COMMON NORMALS: Soft to palpation and non-tender PALPATION: Yes Soft to palpation Extremity: NARRATIVE EXTREMITY EXAM: Right-sided BKA with erythema that is hot to touch of the stump, erythema of the left lower extremity which is hot to touch Course 2 Vital Signs: Vital signs: Vital Signs Temperature 97.7 F 05/05/25 18:26 Pulse Rate 106 H 05/05/25 21:06 Respiratory Rate 16 05/05/25 21:06 Blood Pressure 186/89 05/05/25 21:06 Pulse Oximetry 95 05/05/25 21:06 Oxygen Delivery Me thod Room Air 05/05/25 18:26 MDM - Nausea/Vomiting/Diarrhea Medical Decision Making On reassessment I talked with the patient and her about the test results. Her CT is concerning for a diarrheal illness, her white blood cell count was normal, however her neutrophils were elevated. Her chest x-ray is concerning for possible infiltrates. Will continue IV fluids, broad-spectrum antibiotics, and admit to the hospital for further workup and treatment. I spoke with the hospitalist who is excepted the patient for admission. Patient's blood sugar is elevated. She has an elevated anion gap. Will start IV insulin. Lab Data 05/05/25 20:35 05/05/25 20:35 Radiology Impressions Chest X-Ray 05/05/25 20:07 IMPRESSION: 1. Borderline prominence of the cardiac silhouette. 2. Hsyf-ev-ynrxjbcg pulmonary edema versus infiltrates. Abdomen/Pelvis CT 05/05/25 20:13 IMPRESSION: 1. Findings compatible with diarrheal state, infectious or inflammatory gastroenteritis. See above details. 2. Nonspecific heterogeneous and irregular appearance of the liver. Severe hepatic steatosis. Recommend correlation with liver function tests. Hepatomegaly. 3. Splenomegaly. Findings suggesting portal venous hypertension, as described above. 4. Indeterminate right adrenal lesion. Adrenal protocol CT or MRI is recommended to evaluate further. 5. Findings compatible with chronic renal parenchymal disease. Recommend correlation with renal function tests. 6. Indeterminate bilateral renal lesions, as described above. Consider renal ultrasound evaluation to evaluate for potential solid renal lesions. Likely bilateral renal parenchyma scoring. 7. Degenerative and postsurgical changes are demonstrated, as described above. COMMENTS: Consistent with the [place] [employer]'s Incidental Findings Committee white paper (J Am Mumtaz Radiol 2018): Any incidental renal lesion less than 1 cm or classified as too small to characterize, or any incidental cystic renal lesion characterized as simple-appearing, is likely benign. No follow-up imaging is recommended for these lesions per consensus recommendations based on imaging criteria. Laboratory Results WBC 10.12 10^3/uL (3.29-11.43) 05/05/25 20:35 RBC 5.20 10^6/uL (3.85-5.65) 05/05/25 20:35 Hgb 14.40 g/dL (11.27-16.99) 05/05/25 20:35 Hct 43.9 % (36-47) 05/05/25 20:35 MCV 84.4 fl (85-98) L 05/05/25 20:35 MCH 27.7 pg (27-33) 05/05/25 20:35 MCHC 32.8 g/dL (30-55) 05/05/25 20:35 RDW 14.7 % (12.1-15.1) 05/05/25 20:35 Plt Count 121 10^3/cmm (157-399) L 05/05/25 20:35 MPV 11.1 fL (7.4-10.4) H 05/05/25 20:35 Neut % (Auto) 80.6 % 05/05/25 20:35 Lymph % (Auto) 14.2 % 05/05/25 20:35 [place] % (Auto) 2.8 % 05/05/25 20:35 Eos % (Auto) 0.2 % 05/05/25 20:35 Baso % (Auto) 0.5 % 05/05/25 20:35 Neut # (Auto) 8.16 10^3/uL (1.8-7.7) H 05/05/25 20:35 Lymph # (Auto) 1.4 10^3/uL (0.8-4.8) 05/05/25 20:35 [place] # (Auto) 0.3 10^3/uL (0.2-0.9) 05/05/25 20:35 Eos # (Auto) 0.0 10^3/uL (0.0-0.8) 05/05/25 20:35 Baso # (Auto) 0.1 10^3/uL (0.0-0.1) 05/05/25 20:35 Nucleated RBC % (auto) 0 % 05/05/25 20:35 Nucleated RBCs # 0.0 /100WBC 05/05/25 20:35 Specimen Type Venous 05/05/25 20:07 Sample Site Not specified 05/05/25 20:07 Kevon Test N/a 05/05/25 20:07 VBG pH 7.39 (7.32-7.42) 05/05/25 20:07 VBG pCO2 41.9 mmHg (41-51) 05/05/25 20:07 VBG pO2 55.4 mmHg (25-40) H 05/05/25 20:07 VBG HCO3 25.1 mmol/L (24-28) 05/05/25 20:07 VBG Base Excess -0.1 mmol/L (-3.0-3.0) 05/05/25 20:07 VBG Hematocrit 46.5 % (37-47) 05/05/25 20:07 O2 Delivery Device Room air 05/05/25 20:07 Automotive Service Advisor ID [email or web address] 05/05/25 20:07 Sodium 134 mmol/L (136-145) L 05/05/25 20:35 Potassium 4.4 mmol/L (3.5-5.1) 05/05/25 20:35 Chloride 91 mmol/L (98-107) L 05/05/25 20:35 Carbon Dioxide 20 mmol/L (22-29) L 05/05/25 20:35 Anion Gap 27.4 (5-19) H 05/05/25 20:35 BUN 16 mg/dL (6-20) 05/05/25 20:35 Creatinine 0.8 mg/dL (0.5-0.9) 05/05/25 20:35 GFR Calculation 74.5 mL/min (90-130) L 05/05/25 20:35 Glucose 482 mg/dL (65-115) H 05/05/25 20:35 Calculated Osmolality 300 mOsm/kg (285-295) H 05/05/25 20:35 Lactic Acid 2.0 mmol/L (0.5-2.2) 05/05/25 20:27 Calcium 9.1 mg/dL (8.5-10.5) 05/05/25 20:35 Magnesium 2.2 mg/dL (1.7-2.3) 05/05/25 20:35 Total Bilirubin 0.5 mg/dL (0.15-1.2) 05/05/25 20:35 AST 15 U/L (0-32) 05/05/25 20:35 ALT 19 U/L (0-33) 05/05/25 20:35 Alkaline Phosphatase 238 U/L (35-105) H 05/05/25 20:35 Troponin T Baseline 16 ng/L (0-10) H 05/05/25 20:27 Total Protein 7.5 g/dL (6.6-8.7) 05/05/25 20:35 Albumin 4.2 g/dL (3.5-5.2) 05/05/25 20:35 Globulin 3.3 g/dL (1.3-4.6) 05/05/25 20:35 Procalcitonin 0.07 ng/mL (0-0.5) 05/05/25 20:35 Urine Color Yellow (Yellow) 05/05/25 21:07 Urine Appearance Clear (CLEAR) 05/05/25 21:07 Urine pH 6.0 (5-7) 05/05/25 21:07 Ur Specific [place] 1.034 (1.005-1.030) H 05/05/25 21:07 Urine Protein 2+ (Negative) A 05/05/25 21:07 Urine Glucose (UA) 3+ (Normal) H 05/05/25 21:07 Urine Ketones 3+ (Negative) H 05/05/25 21:07 Urine Blood 1+ (Negative) A 05/05/25 21:07 Urine Nitrate Negative (Negative) 05/05/25 21:07 Urine Bilirubin Negative (Negative) 05/05/25 21:07 Urine Urobilinogen 0.2 mg/dL (Negative) 05/05/25 21:07 Ur Leukocyte Esterase Negative (Negative) 05/05/25 21:07 Urine RBC 0-2 /hpf (0-2) 05/05/25 21:07 Urine WBC 0-5 /hpf (0-5) 05/05/25 21:07 Ur Squamous Epith Cells 0-5 /hpf (0-5) 05/05/25 21:07 Amorphous Sediment Not Reportable 05/05/25 21:07 Urine Bacteria None seen /hpf (NONE) 05/05/25 21:07 Hyaline Casts 0-4 /lpf H 05/05/25 21:07 Vancomycin Trough < 4.0 ug/mL (10-15) L 05/05/25 20:27 All radiology interpretation(s) finalized by discharge Critical Care Time 2 Critical Care Time: Critical Care Time: Yes Total Critical Care Time: 35 Attestation: This case had a high probability of a clinically significant, sudden, or life threatening deterioration of this patient's condition which required my full and direct attention, intervention and personal management. Discharge Plan Discharge Patient Disposition: Admitted As Inpatient Clinical Impression: Sepsis Condition: Stable Coding Level of Care Code ED Recreation Adviser for Felicia Fermin
--- NOTE | 2025-05-05 20:13 | CTR_ITS ---
PROCEDURE INFORMATION: Exam: CT Abdomen And Pelvis With Contrast Exam date and time: 05/05/2025 8:43 PM Age: 54 years old Clinical indication: Abdominal pain; Generalized; Prior surgery; Surgery date: 6+ months; Surgery type: Gb. Hysterectomy. Lumbar fusion; C/O diffuse abd pain; Additional info: Generalized abd pain TECHNIQUE: Imaging protocol: Computed tomography of the abdomen and pelvis with contrast. Radiation optimization: All CT scans at this facility use at least one of these dose optimization techniques: automated exposure control; mA and/or kV adjustment per patient size (includes targeted exams where dose is matched to clinical indication); or iterative reconstruction. Contrast material: OMNI 350; Contrast volume: 100 ml; Contrast route: INTRAVENOUS (IV); COMPARISON: MR MRCP [id number] 11/08/2020 12:[address] abdomen pelvis with contrast dated 11/06/2020. RADIATION DOSE METRICS: Total DLP (mGy-cm): 1113.06 FINDINGS: Tubes, catheters and devices: Transpedicular screws and Fajardo rods overlie the lower lumbar spine. Artifact created by metallic hardware. Liver: Liver appears heterogeneous with irregular border. Possible hepatic parenchymal disease. Liver demonstrates diffuse severe hypodensity. The liver is enlarged. Liver measurement: 21 cm length. Gallbladder and biliary ducts: The gallbladder has been surgically removed. Surgical clips identified in the gallbladder fossa. No evidence for biliary dilatation. Pancreas: Unremarkable. Spleen: The spleen is enlarged. Spleen measurement: 15 cm greatest length. Adrenal glands: Indeterminate incidental right adrenal lesion is identified. This lesion does not demonstrate definite criteria for benign adenoma. Right adrenal lesion measurement: 47 Hounsfield units and 4 cm on axial image 22. The left adrenal gland appears unremarkable. Kidneys and ureters: The kidneys appear heterogeneous with irregular lobulated contours and areas of cortical thinning. Findings suggesting chronic renal parenchymal disease. Indeterminate bilateral incidental renal lesions identified. Renal lesions measurement and location: Multiple ill-defined heterogeneous renal hypodensities bilaterally measuring up to 3 cm. Possible renal parenchymal scarring from previous infection, inflammation. Pyelonephritis was previously seen in October 2020. No visualized renal hydronephrosis. No visible renal calculi. Stomach and bowel: Prominent fluid identified within the bowel, colon and rectum, compatible with diarrheal state. Findings are compatible with infectious or inflammatory gastroenteritis. The bowel appears otherwise unremarkable. No visualized evidence for bowel obstruction or ileus. Appendix: The visualized appendix appears unremarkable. Intraperitoneal space: No free air. No significant fluid collection. Vasculature: Findings demonstrate evidence for portal venous hypertension. Findings include: Splenomegaly, small recanalized umbilical vein and generalized anasarca. Calcifications in the pelvis, most compatible with phleboliths. Lymph nodes: No enlarged lymph nodes. Urinary bladder: Unremarkable as visualized. Reproductive: The uterus is not present. Bones/joints: Mild to moderate generalized bony degenerative changes. Disc and osteophyte complexes with mild to moderate central canal and foraminal narrowing within the lumbar spine. Soft tissues: Unremarkable. Other findings: This study is severely limited by patient's large body habitus. Limited study with motion artifact. CT/CT abdomen pelvis w con* [id number] IMPRESSION: 1. Findings compatible with diarrheal state, infectious or inflammatory gastroenteritis. See above details. 2. Nonspecific heterogeneous and irregular appearance of the liver. Severe hepatic steatosis. Recommend correlation with liver function tests. Hepatomegaly. 3. Splenomegaly. Findings suggesting portal venous hypertension, as described above. 4. Indeterminate right adrenal lesion. Adrenal protocol CT or MRI is recommended to evaluate further. 5. Findings compatible with chronic renal parenchymal disease. Recommend correlation with renal function tests. 6. Indeterminate bilateral renal lesions, as described above. Consider renal ultrasound evaluation to evaluate for potential solid renal lesions. Likely bilateral renal parenchyma scoring. 7. Degenerative and postsurgical changes are demonstrated, as described above. COMMENTS: Consistent with the [employer]'s Incidental Findings Committee white paper (J Am Mumtaz Radiol 2018): Any incidental renal lesion less than 1 cm or classified as too small to characterize, or any incidental cystic renal lesion characterized as simple-appearing, is likely benign. No follow-up imaging is recommended for these lesions per consensus recommendations based on imaging criteria.
--- NOTE | 2025-05-05 20:15 | ECG_ITS ---
[facility] 2025[facility]05 Pat Name: Analia Hurst Department: Room: Gender: Female Senior Net Application Developer: : [id number] Requested By: Nathan Salinas Order Number: [id number] Zachary MD: CADEN SNOW Measurements Intervals [place] Rate: 105 P: 71 SC: 202 QRS: 83 QRSD: 99 T: 67 QT: 346 QTc: 457 Interpretive Statements SINUS TACHYCARDIA ABNORMAL RHYTHM ECG Compared to ECG 01/03/2023 09:50:57 Sinus rhythm no longer present Electronically Signed On 05-06-2025 23:55:39 CDT by CADEN SNOW [id number]
[2025-05-05 20:32] LABS: Base Excess VBG -0.1 mmol/L (-3.0-3.0); Blood Gas Sample Site Not specified; Blood Gas Sample Type Venous; HCO3 VBG 25.1 mmol/L (24-28); Oxygen Device ROOM AIR; PCO2 VBG 41.9 mmHg (41-51); PO2 VBG 55.4 mmHg (25-40); Venous Blood Gas Hematocrit 46.5 % (37-47); pH VBG 7.39 (7.32-7.42)
[2025-05-05 20:43] LABS: Basophils # 0.1 10^3/uL (0.0-0.1); Basophils % 0.5 %; Eosinophils % 0.2 %; Hematocrit 43.9 % (36-47); Lymphocytes # 1.4 10^3/uL (0.8-4.8); Lymphocytes % 14.2 %; Mean Corpuscular HGB Conc 32.8 g/dL (30-55); Mean Corpuscular Hemoglobin 27.7 pg (27-33); Mean Corpuscular Volume 84.4 fl (85-98); Mean Platelet Volume 11.1 fL (7.4-10.4); Monocytes # 0.3 10^3/uL (0.2-0.9); Monocytes % 2.8 %; Neutrophils # 8.16 10^3/uL (1.8-7.7); Neutrophils % 80.6 %; Nucleated Red Blood Cells % 0 %; Platelet Count 121 10^3/cmm (157-399); Red Cell Distribution Width 14.7 % (12.1-15.1); White Blood Count 10.12 10^3/uL (3.29-11.43)
[2025-05-05] MEDS: iohexol 350 mg/mL 500 mL Btl (per mL) IV (20:45)
[2025-05-05] MEDS: cefepime 2,000 mg SDV 2000 MG IVP (20:50)
[2025-05-05] MEDS: metoclopramide 5 mg/mL SDV 2 mL 10 MG IVP (20:50)
--- NOTE | 2025-05-05 20:50 | PC.NURSE ---
Pt repeatedly attempting to get out of bed and into the floor, pt redirected multiple times to get back into the bed. Pt states she wants to leave, pt redirected and put back into bed and states she will stay
[2025-05-05 21:07] LABS: Troponin(5th) Baseline 16 ng/L (0-10)
[2025-05-05 21:21] LABS: Bilirubin Urine Negative (Negative); Blood Urine 1+ (Negative); Glucose Urine UA 3+ (Normal); Ketones Urine 3+ (Negative); Leukocyte Esterase Urine Negative (Negative); Nitrate Urine Negative (Negative); Protein Urine 2+ (Negative); Urine Appearance Clear (CLEAR); Urine Color Yellow (Yellow); Urobilinogen Urine 0.2 mg/dL (Negative)
[2025-05-05 21:26] LABS: Add Urine Microscopic? YES; Bacteria Urine None Seen /hpf; Hyaline Casts Urine 0-4 /lpf; RBC Urine 0-2 /hpf (0-2); Squamous Epithelial Cell Urine 0-5 /hpf (0-5); WBC Urine 0-5 /hpf (0-5)
[2025-05-05 21:30] LABS: Specific Gravity, Urine 1.034 (1.005-1.030)
[2025-05-05 21:43] LABS: Alanine Aminotransferase 19 U/L (0-33); Albumin Level 4.2 g/dL (3.5-5.2); Alkaline Phosphatase 238 U/L (35-105); Aspartate Amino Transferase 15 U/L (0-32); Blood Urea Nitrogen 16 mg/dL (6-20); Calcium 9.1 mg/dL (8.5-10.5); Carbon Dioxide 20 mmol/L (22-29); Chloride 91 mmol/L (98-107); Creatinine Clr Calc Pharmacy 91.8769; Globulin 3.3 g/dL (1.3-4.6); Glomerular Filtration Rate 74.5 mL/min (90-130); Glucose 482 mg/dL (65-115); Magnesium 2.2 mg/dL (1.7-2.3); Osmolality Calculated 300 mOsm/kg (285-295); Sodium 134 mmol/L (136-145); Total Bilirubin 0.5 mg/dL (0.15-1.2); Total Protein 7.5 g/dL (6.6-8.7)
[2025-05-05 21:44] LABS: Vancomycin Trough < 4.0 ug/mL (10-15)
[2025-05-05 21:49] LABS: Anion Gap 27.4 (5-19); Potassium 4.4 mmol/L (3.5-5.1); Procalcitonin 0.07 ng/mL (0-0.5)
--- NOTE | 2025-05-05 21:55 | PC.NURSE ---
Pt taking monitoring off and states she doesn't need it. Nurse continues to attempt to reapply monitoring equipment and explains multiple times to the pt why it is important to have it on
[2025-05-05] MEDS: ondansetron 2 mg/ML SDV 2 mL 4 MG IVP (22:39)
[2025-05-05] MEDS: vancomycin 1,500 MG/300 ML PIGGYBACK 200 MG IV (22:40)
[2025-05-05] MEDS: insulin regular-human 100 units/1 mL 4 UNIT IVP (22:43)
--- NOTE | 2025-05-05 22:51 | PM.HP ---
Providers/Chief Complaint Admitting Physician: Cary Campos MD----patient seen before midnight Primary Care Provider: Yesica Bailey MD Chief Complaint: cold flashes,malaise&myalgia,R BKA stum cellulliti History of Present Illness Analia Hurst is a 54 year old female with medical history significant for diabetes type 2, morbid obesity, osteomyelitis to the right BKA stump in the past and had undergone 6 weeks of IV antibiotics for MRSA. Patient also have a right BKA secondary to MRSA infection. Site had healed. However patient is returning to the hospital 3 days ago after not feeling good with generalized bodyaches patient was put in for an observation without a PICC line and discharged to start coming from home for IV antibiotics. Patient had to do this daily in an infusion center.. Patient is with right BKA stump cellulitis and this is the culprit for patient's infection. Blood culture has been drawn pending result Today patient had actually missed coming out for infusion outpatient because she was not feeling well and it does not look like patient is actually being consistent with following up outpatient because it Vanco trough is less than 4. Patient supposedly been taking infusion outpatient the last 3 days prior to today. Patient is very ill and I have seen and evaluated patient at this time patient is complaining excruciating generalized body pain and ache [place] for pain medication serum glucose was almost 500 at 482 VBG was unremarkable pH was 7.39 bicarb are normal patient is not in DKA. Patient has been given 2 L of IV fluid in the emergency room and a dose of insulin to kick start for treatment of hyperglycemia. I will get MRI of the right BKA stump to rule out osteomyelitis. Review of Systems Narrative: Generally patient looks confused does have change in mental status cannot remember much and very uncomfortable with myalgia. 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 Medications/Allergies Home Medications ?Medication ?Instructions ?Recorded ?Confirmed ?Last Taken ?Type blood sugar diagnostic (OneTouch #300 ea 07/17/23 03/23/25 Unknown Rx Ultra Test strips) 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 meter (OneTouch #1 kit 08/19/23 03/23/25 Unknown Rx Ultra2 Meter) 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 sensor (Dexcom G7 #9 ea 09/30/23 03/23/25 Unknown Rx Sensor device) oxycodone 10 mg tablet 10 mg PO Q6H PRN pain 30 days #120 11/03/23 03/23/25 Unknown Rx tabs duloxetine 20 mg capsule,delayed See Rx Instructions .Route 11/10/23 03/23/25 Unknown Rx release .COMPLEX #30 caps multivitamin 1 tab PO DAILY@08 #90 tabs 11/10/23 03/23/25 Unknown Rx pen needle, diabetic 31 gauge x #100 ea 11/10/23 03/23/25 Unknown Rx 3/ (TechLITE Pen Needle) 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,bone drier operator,cont #1 ea 01/12/24 03/23/25 Unknown Rx (Dexcom G7 Paving Foreman) oxycodone 10 mg tablet 10 mg PO Q6H PRN pain 30 days #120 01/12/24 03/23/25 Unknown Rx tabs wheel chair ramp #1 ea 02/09/24 03/23/25 Unknown Rx motorized wheel chair #1 ea 03/21/24 03/23/25 Unknown Rx Hinged knee brace, right #1 ea 05/03/24 03/23/25 Unknown Rx benzonatate 100 mg capsule 100 mg PO TID PRN cough 10 days 05/26/24 03/23/25 Unknown Rx #30 caps furosemide 20 mg tablet 20 mg PO DAILY edema #30 tabs 09/12/24 03/23/25 Unknown Rx potassium chloride 20 mEq 20 meq PO BID #180 tabs 09/12/24 03/23/25 Unknown Rx tablet,extended release pentoxifylline 400 mg 400 mg PO TID #90 tabs 09/26/24 03/23/25 Unknown Rx tablet,extended release prazosin 1 mg capsule 1 mg PO BID 30 days #60 caps 10/05/24 03/23/25 Unknown Rx pantoprazole 40 mg tablet,delayed See Rx Instructions .Route 11/07/24 03/23/25 Unknown Rx release .COMPLEX #30 tabs amitriptyline 25 mg tablet 25 mg PO BEDTIME #30 tabs 11/08/24 03/23/25 Unknown Rx lactulose 20 gram/30 mL oral 20 g (30 mL) PO BID #1,200 mL 11/08/24 03/23/25 Unknown Rx solution olanzapine 5 mg tablet (Zyprexa) 5 mg PO BID #60 tabs 11/08/24 03/23/25 Unknown Rx fluconazole 150 mg tablet 150 mg PO Q72H #5 tabs 12/27/24 03/23/25 Unknown Rx insulin regular hum U-500 conc 500 150 unit (0.3 mL) SUBCUT TID 30 12/27/24 03/23/25 Unknown Rx unit/mL(3 mL) subcut pen (Humulin days #27 mL R U-500 (Conc) Insulin Kwikpen) prednisone 20 mg tablet 20 mg PO DAILY #15 tabs 01/04/25 03/23/25 Unknown Rx techlite ultra thin 3/4 inch #100 ea 01/22/25 03/23/25 Unknown Rx needles hydroxyzine HCl 25 mg tablet 25 mg PO BID PRN itching #30 tabs 01/30/25 03/23/25 Unknown Rx 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 sensor (Dexcom G7 #3 ea 02/10/25 03/23/25 Unknown Rx Sensor device) 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,bone drier operator,cont #1 ea 02/10/25 03/23/25 Unknown Rx (Dexcom G7 Paving Foreman) citalopram 40 mg tablet See Rx Instructions .Route 02/14/25 03/23/25 Unknown Rx .COMPLEX #30 tabs sulfamethoxazole 800 1 tab PO BID #20 tabs 02/20/25 03/23/25 Unknown Rx mg-trimethoprim 160 mg tablet (Bactrim DS) atorvastatin 40 mg tablet See Rx Instructions .Route 03/28/25 Unknown Rx .COMPLEX #30 tabs clopidogrel 75 mg tablet See Rx Instructions .Route 03/28/25 Unknown Rx .COMPLEX #30 tabs tizanidine 4 mg tablet See Rx Instructions .Route 03/28/25 Unknown Rx .COMPLEX #90 tabs ropinirole 2 mg tablet See Rx Instructions .Route 04/03/25 Unknown Rx .COMPLEX #60 tabs sulfamethoxazole 800 1 tab PO BID #14 tabs 04/19/25 04/19/25 Unknown Rx mg-trimethoprim 160 mg tablet (Bactrim DS) levofloxacin 500 mg tablet 500 mg PO DAILY #21 tabs 04/25/25 Unknown Rx pregabalin 300 mg capsule (Lyrica) 300 mg PO BID@08,20 #60 caps 04/25/25 Unknown Rx promethazine 25 mg tablet 12.5 mg (1/2 x 25 mg) PO BEDTIME 04/25/25 Unknown Rx #30 tabs hospital bed #1 ea 05/03/25 Unknown Rx Allergies Allergy/AdvReac Type Severity Reaction Status Date / Time ketorolac (From Toradol) Allergy Intermediate rash Verified 03/23/25 13:30 morphine Allergy Intermediate rash Verified 03/23/25 13:30 nitrofurantoin (From Allergy Intermediate rash Verified 03/23/25 13:30 Macrobid) Penicillins Allergy Intermediate hives Verified 03/23/25 13:30 acetaminophen (From Tylenol) Allergy ADR-Nausea Verified 03/23/25 13:30 adhesive Allergy rash Verified 03/23/25 13:30 ibuprofen Allergy ADR-Gastrointestinal Verified 03/23/25 13:30 Upset PFSH Acute PFSH: Medical History Postoperative bleeding from incision Chondromalacia, knee Plica of knee Medial meniscus tear Acute pain of left knee Gastroparesis due to DM Acute hyperglycemia Arthritis of hand, left Sepsis Pyelonephritis Hypertension Depression Diabetes Insomnia Ulnar nerve impingement Lumbar post-laminectomy syndrome Spinal stenosis, cervical region Surgical History H/O esophagogastroduodenoscopy (05/23/21) H/O flexible sigmoidoscopy (05/23/21) Status post laparoscopic cholecystectomy H/O carpal tunnel repair History of lumbar fusion H/O neck surgery H/O rotator cuff surgery History of hysterectomy H/O tubal ligation S/P left knee arthroscopy Family History Other CAD (coronary artery disease) Cancer Stroke Denies family history of Anesthesia complication Bleeding disorder Social History Smoking and tobacco/nicotine status: never used tobacco/nicotine Second hand smoke exposure: Yes Alcohol intake: former Substance/Drug Use: never Vitals/I&O/Wt Last Vital Signs Temp 97.7 F 05/05/25 18:26 Pulse 96 05/05/25 22:47 Resp 16 05/05/25 22:47 BP 173/91 05/05/25 22:47 Pulse Ox 95 05/05/25 22:47 O2 Del Method Room Air 05/05/25 18:26 05/05/25 05/05/25 05/05/25 06:59 14:59 22:59 Intake Total 1848 / 1848 Balance 184 / 184 Weight last 48 hrs Weight 90.718 kg Physical Exam Narrative: Generally, the patient is mildly confused and very uncomfortable with myalgia HEENT normocephalic/atraumatic Neck neck is supple Cardiovascular heart rate is regular Lungs lungs are clear Abdomen soft nontender nondistended has good bowel sounds unremarkable Extremities-right BKA stump cellulitis, warm to touch this is the culprit for patient's illness Data 05/05/25 20:35 05/05/25 20:35 Micro: Microbiology 05/05/25 20:35 Blood Culture - Preliminary Blood SPECIMEN COLLECTED 05/05/25 20:27 Blood Culture - Preliminary Blood SPECIMEN COLLECTED A&P Assessment and plan (1) Bacteremia: Presumptive MRSA bacteremia likely seeding from prior infection site of the right lower extremity foot/below the knee stump - I have initiated vancomycin and cefepime at this time. Patient received a dose of vancomycin in the emergency room of 1500 mg. Cefepime and therefore any associated gram-negative and anaerobes in the setting of infection. Obtain MRI (2) Change in mental status: Patient seemed to feel foggy in the brain as the same question over and over not realizing that she had actually said the same thing many times. And this is secondary to systemic infection Of the right below the knee stump Continue antibiotics with vancomycin and cefepime along with IV hydration (3) Below-knee amputation of right lower extremity: This procedure was done due to a prior infection On the same extremity there is cellulitis at the moment Continue to treat accordingly (4) Hyperglycemia: This is secondary to uncontrolled diabetes and worsened by underlining infection at this time. Patient blood sugar level was high at 482 on presentation IV fluid has been given insulin initiated Plan GI and DVT prophylaxis in place PDMP PDMP Reviewed: Not Reviewed Attestations Medical Necessity Statement*: Patient meets inpatient criteria with presumptive MRSA bacteremia with repeated head right BKA stump infection hyperglycemia from diabetes on the infection requiring long-term IV antibiotics at this time awaiting blood cultures. Patient needs at least 2 midnight stay. Coding Level of Care Code 14179 Diagnoses Bacteremia R78.81 Change in mental status R41.82 Below-knee amputation of right lower extremity, initial encounter S88.111A Encounter type: initial encounter Hyperglycemia R73.9 Time Spent (min) 60
[2025-05-05 22:52] LABS: Glucose 475 mg/dL (65-115)
[2025-05-05 22:55] LABS: Troponin 5 2HR 15.65 ng/L (0-10)
[2025-05-05 23:00] LABS: Troponin 5 2HR Delta -0.35 ABS# (0-10)
--- NOTE | 2025-05-05 23:11 | PC.NURSE ---
Addendum entered by Keiry Lopes RN 05/05/25 23:11: This nurse has attempted to start second IV line more than once, pt continues to roll side to side and onto stomach and will not allow nurse to start second IV line. Original Note: This nurse has attempted to start second IV line more than once, pt continues to roll side to side and onto stomach and will not allow pt to start second IV line.
[2025-05-05] MEDS: sodium chloride 0.9% 1,000 ML 100 ML IV (23:50)
[2025-05-05] MEDS: cefepime 1,000 mg SDV 1000 MG IVP (23:51)
[2025-05-05] MEDS: heparin 5,000 unit/mL INJ 1 mL 5000 UNIT SUBCUT (23:51)
[2025-05-06] VITALS (71 sets, daily range): BP systolic 96–180; BP diastolic 45–94; PULSE 66–98; RESP 9–22; TEMP 36.4–37.1; O2SAT 75–100
[2025-05-06 00:47] LABS: Glucose Point of Care 523 mg/dL (70-110)
[2025-05-06] MEDS: insulin lispro 100 unit/1 mL 25 UNIT SUBCUT (00:49)
[2025-05-06 01:31] LABS: Glucose Point of Care 460 mg/dL (70-110)
[2025-05-06 02:07] LABS: Glucose Point of Care 475 mg/dL (70-110)
[2025-05-06 02:28] LABS: Basophils # 0.1 10^3/uL (0.0-0.1); Basophils % 0.6 %; Eosinophils % 0.1 %; Hematocrit 41.3 % (36-47); Lymphocytes # 1.7 10^3/uL (0.8-4.8); Lymphocytes % 14.4 %; Mean Corpuscular HGB Conc 32.4 g/dL (30-55); Mean Corpuscular Hemoglobin 28.1 pg (27-33); Mean Corpuscular Volume 86.6 fl (85-98); Mean Platelet Volume 11.4 fL (7.4-10.4); Monocytes # 0.3 10^3/uL (0.2-0.9); Monocytes % 2.5 %; Neutrophils # 9.42 10^3/uL (1.8-7.7); Neutrophils % 80.2 %; Nucleated Red Blood Cells % 0 %; Platelet Count 128 10^3/cmm (157-399); Red Blood Count 4.77 10^6/uL (3.85-5.65); Red Cell Distribution Width 14.8 % (12.1-15.1); White Blood Count 11.74 10^3/uL (3.29-11.43)
[2025-05-06 02:36] LABS: Glucose Point of Care 427 mg/dL (70-110)
[2025-05-06 02:57] LABS: Alanine Aminotransferase 17 U/L (0-33); Alkaline Phosphatase 209 U/L (35-105); Anion Gap 23.9 (5-19); Aspartate Amino Transferase 13 U/L (0-32); Blood Urea Nitrogen 14 mg/dL (6-20); Calcium 8.3 mg/dL (8.5-10.5); Carbon Dioxide 15 mmol/L (22-29); Chloride 96 mmol/L (98-107); Creatinine Clr Calc Pharmacy 121.7625; Globulin 2.9 g/dL (1.3-4.6); Glomerular Filtration Rate 86.9 mL/min (90-130); Glucose 434 mg/dL (65-115); Osmolality Calculated 291 mOsm/kg (285-295); Phosphorus 3.2 mg/dL (2.5-4.5); Potassium 3.9 mmol/L (3.5-5.1); Sodium 131 mmol/L (136-145); Total Bilirubin 0.3 mg/dL (0.15-1.2); Total Protein 6.9 g/dL (6.6-8.7)
[2025-05-06 02:59] LABS: Troponin 5 6HR 15.38 ng/L (0-10)
[2025-05-06 03:17] LABS: Troponin 5 6HR Delta -0.62 ng/L (0-12)
[2025-05-06 03:49] LABS: Glucose Point of Care 397 mg/dL (70-110)
[2025-05-06 03:49] LABS: Glucose Point of Care 401 mg/dL (70-110)
[2025-05-06 04:21] LABS: Glucose Point of Care 392 mg/dL (70-110)
[2025-05-06] MEDS: ondansetron 2 mg/ML SDV 2 mL 4 MG IVP (05:44)
[2025-05-06] MEDS: cefepime 1,000 mg SDV 1000 MG IVP ×4 (05:56→23:17)
--- NOTE | 2025-05-06 06:22 | PC.NURSE ---
when pt transferred to this floor last noc, BS was 523, Dr. Campos notified and nurse instructed to give 25 units of humolog subq x1. check BS q30 minutes x3. pt blood sugar gradually lowers, nurse spoke with Dr. Campos about pt BS 392 @ 0400. no new order received . also notified of pt found on the floor. pt kept transferring self to the floor stating I am hot , once on the floor pt c/o being cold. pt extremely restless.
[2025-05-06 06:50] LABS: Glucose Point of Care 431 mg/dL (70-110)
--- NOTE | 2025-05-06 06:57 | PHA.VACGOAL ---
Vancomycin Goal - Goal Vancomycin Goal:: 15-20 mg/L Vancomycin Indication:: Other - Therapy Current therapy:: Cefepime Day of therpy:: Day []of [] . 2 Actual body weight (kg): 264 lb 7 oz - Data Labs: WBC 11.74 10^3/uL (3.29-11.43) H 05/06/25 02:19 RBC 4.77 10^6/uL (3.85-5.65) 05/06/25 02:19 Hgb 13.40 g/dL (11.27-16.99) 05/06/25 02:19 Hct 41.3 % (36-47) 05/06/25 02:19 MCV 86.6 fl (85-98) 05/06/25 02:19 MCH 28.1 pg (27-33) 05/06/25 02:19 MCHC 32.4 g/dL (30-55) 05/06/25 02:19 RDW 14.8 % (12.1-15.1) 05/06/25 02:19 Sodium 131 mmol/L (136-145) L 05/06/25 02:19 Potassium 3.9 mmol/L (3.5-5.1) 05/06/25 02:19 Chloride 96 mmol/L (98-107) L 05/06/25 02:19 Carbon Dioxide 15 mmol/L (22-29) L 05/06/25 02:19 Anion Gap 23.9 (5-19) H 05/06/25 02:19 BUN 14 mg/dL (6-20) 05/06/25 02:19 Creatinine 0.7 mg/dL (0.5-0.9) 05/06/25 02:19 GFR Calculation 86.9 mL/min (90-130) L 05/06/25 02:19 Treatment plan:: new consult (bacteremia)
[2025-05-06] MEDS: HYDROmorphone 0.5 MG/0.5 ML INJ 1 MG IVP (07:28)
[2025-05-06] MEDS: insulin lispro 100 unit/1 mL 20 UNIT SUBCUT (07:28)
[2025-05-06 08:56] LABS: Glucose Point of Care 444 mg/dL (70-110)
--- NOTE | 2025-05-06 09:20 | PC.PHAR ---
Spouse states he last knew pt to take her routine medications was 05/04/25
[2025-05-06] MEDS: insulin lispro 100 unit/1 mL SUBCUT ×2 (09:32→20:24)
[2025-05-06] MEDS: vancomycin 1,500 MG/300 ML PIGGYBACK 200 MG IV ×3 (09:34→23:17)
[2025-05-06] MEDS: pantoprazole DR 40 mg Tablet PO (09:35)
[2025-05-06] MEDS: ondansetron 2 mg/ML SDV 2 mL 8 MG IM (09:46)
[2025-05-06 09:50] LABS: Alanine Aminotransferase 18 U/L (0-33); Albumin Level 3.9 g/dL (3.5-5.2); Alkaline Phosphatase 208 U/L (35-105); Aspartate Amino Transferase 15 U/L (0-32); Blood Urea Nitrogen 12 mg/dL (6-20); Calcium 8.9 mg/dL (8.5-10.5); Carbon Dioxide 19 mmol/L (22-29); Chloride 99 mmol/L (98-107); Creatinine Clr Calc Pharmacy 103.1569; Globulin 3.6 g/dL (1.3-4.6); Glomerular Filtration Rate 74.5 mL/min (90-130); Glucose 374 mg/dL (65-115); Ketone (Acetest) Serum Positive (Negative); Osmolality Calculated 291 mOsm/kg (285-295); Sodium 133 mmol/L (136-145); Total Bilirubin 0.3 mg/dL (0.15-1.2); Total Protein 7.5 g/dL (6.6-8.7)
--- NOTE | 2025-05-06 10:21 | CTR_ITS ---
PROCEDURE INFORMATION: Exam: CT Left Lower Extremity With Contrast, Foot Exam date and time: 05/06/2025 12:35 PM Age: 54 years old Clinical indication: Other: Diabetic foot infection TECHNIQUE: Imaging protocol: CT of the left lower extremity with intravenous contrast was performed. Exam focused on the foot. Radiation optimization: All CT scans at this facility use at least one of these dose optimization techniques: automated exposure control; mA and/or kV adjustment per patient size (includes targeted exams where dose is matched to clinical indication); or iterative reconstruction. Contrast material: OMNI 350; Contrast volume: 100 ml; Contrast route: INTRAVENOUS (IV); COMPARISON: MR foot LT wo/w con [id number] 04/18/2025 7:13 AM RADIATION DOSE METRICS: Total DLP (mGy-cm): 147.55 FINDINGS: Bones/joints: Subacute-chronic intra-articular fracture of the distal phalanx great toe. There is soft tissue ulceration/edema of the great toe suggestive of cellulitis. No evidence of acute osseous erosion to suggest osteomyelitis at this time. Subacute minimally displaced fracture of the proximal phalanx 5th toe. Soft tissues: Soft tissue edema compatible with cellulitis. No discrete fluid collection to suggest abscess. No evidence of soft tissue air to suggest gas-forming infection/fasciitis. CT/CT foot LT w con [id number] IMPRESSION: 1. Soft tissue ulceration/cellulitis of the great toe without discrete fluid collection or underlying acute osseous erosion. If there is ongoing clinical concern for infection, consider correlation with MRI. 2. Subacute minimally displaced fracture of the proximal phalanx 5th toe.
[2025-05-06] MEDS: heparin 5,000 unit/mL INJ 1 mL 5000 UNIT SUBCUT ×2 (10:49→23:18)
[2025-05-06] MEDS: sodium chloride 0.9% 1,000 ML 999 ML IV (10:49)
[2025-05-06 10:57] LABS: Erythrocyte Sedimentation Rate 43 mm/hr (0-15)
[2025-05-06 11:17] LABS: Glucose Point of Care 374 mg/dL (70-110)
[2025-05-06] MEDS: oxyCODONE 5 mg IR Tab/Cap 10 MG PO ×2 (11:39→17:15)
[2025-05-06] MEDS: sodium chloride 0.9% 1,000 ML 125 ML IV (12:01)
[2025-05-06 12:04] LABS: Adenovirus Not Detected (NOT DETECT); Chlamydia Pneumoniae Not Detected (NOT DETECT); Coronavirus 229E,HKU1,NL63,OC4 Not Detected (NOT DETECT); Human Metapneumovirus Not Detected (NOT DETECT); Human Rhinovirus/Enterovirus Not Detected (NOT DETECT); Influenza A Not Detected (NOT DETECT); Influenza A H1 Not Detected (NOT DETECT); Influenza A H1-2009 Not Detected (NOT DETECT); Influenza A H3 Not Detected (NOT DETECT); Influenza B Not Detected (NOT DETECT); Mycoplasma Pneumoniae Not Detected (NOT DETECT); Parainfluenza Virus Type 1 Not Detected (NOT DETECT); Parainfluenza Virus Type 2 Not Detected (NOT DETECT); Parainfluenza Virus Type 3 Not Detected (NOT DETECT); Parainfluenza Virus Type 4 Not Detected (NOT DETECT); Respiratory Syncytial Virus A Not Detected (NOT DETECT); Respiratory Syncytial Virus B Not Detected (NOT DETECT); SARS-COV-2 Not Detected (NOT DETECT)
--- NOTE | 2025-05-06 12:04 | P.PN_ITS ---
Subjective 2 Subjective: - Patient was seen this morning - She is sitting up to side of bed, havi ng active nausea, vomiting, - She reports feeling unwell -She is alert to person, to place, not t o time she can follow commands does have intermittent confusion, has been at bedside - No abdominal pain, no chest pain, no s hortness of breath - Discussed with patient that she has ev idence of metabolic acidosis, with a prolonged anion gap - As she is not able to keep down solids or liquids has active nausea vomiting, feeling unwell I am highly suspicious that she has diabetic ketoacidosis - I have ordered a repeat CMP, ketones, with plans on possibly moving down to ICU if her ketones are positive - I am going to keep her n.p.o., plans o n possible insulin drip -Discussed with nursing staff, left PICC line has been pulled out, about 1 cm of it is sticking out of the skin, with a break in the seal, with surrounding erythema, concerns for possible PICC line infection, discussed with nursing staff to remove PICC, unfortunately PICC line was declined discarded before we could culture the tip, will order ultrasound venous left upper extremity - She has a diabetic foot infection of h er left foot, involving the 1st and 2nd digits, we unwrapped that with the help of nursing staff, first 2 digits are foul-smelling, second digit has a necrotic base, discussed possible surgical invention, podiatry consultation, CT imaging - We also discussed her chest x-ray find ings, concern for possible pneumonia, will continue broad-spectrum antibiotics - Patient's ketones were positive, with her metabolic acidosis, increased anion gap will moved to ICU for insulin drip, diabetic ketoacidosis - Patient was moved to ICU, for diabetic ketoacidosis, currently on insulin drip at 9, last anion gap is 14.8, blood sugar still 272,, bicarb is 20 - She was having episodes of agitation, anxiety, placed on Precedex drip - Patient was seen in the ICU, normotens lisa, on room air, on insulin drip at 9, on Precedex drip, at bedside - Discussed with CT scan finding s,, plans on IV antibiotics, podiatry consult, continue IV antibiotics for pneumonia, continue insulin drip monitor anion gap - Patient is currently resting comfortab ly, normotensive, on room air Vitals/I&O/Wt Last Vital Signs Temp 98.4 F 05/06/25 11:44 Pulse 91 05/06/25 11:44 Resp 15 05/06/25 11:44 BP 137/69 05/06/25 11:44 Pulse Ox 98 05/06/25 11:44 O2 Del Method Room Air 05/06/25 11:44 05/05/25 05/06/25 05/06/25 22:59 06:59 14:59 Intake Total 1848 / 1848 540 / 2388 2300 / 2300 Output Total 2400 / 2400 Balance 1848 / 1848 -1860 / -12 2300 / 2300 Weight last 48 hrs Weight 113.2 kg Weight 119.947 kg Weight 90.718 kg Physical Exam 2 Const: COMMON NORMALS: no acute distress ORIENTATION/CONSCIOUSNESS: Yes awake, Yes oriented to person, Yes oriented to place and Yes confused; not oriented to time Eye: COMMON NORMALS: Equal, round and reactive pupils present PUPIL: Yes Equal, round and reactive pupils present Resp: COMMON NORMALS: normal respiratory effort, No retractions and No use of accessory muscles AUSCULTATION: crackles and wheezes Cardio: COMMON NORMALS: regular rate, regular rhythm, S1 normal heart sound present and S2 normal heart sound present RATE: regular rate RHYTHM: r egular rhythm HEART SOUNDS: S1 normal heart sound present and S2 normal heart sound present GI: COMMON NORMALS: Normal to inspection, nondistended, normoactive bowel sounds present and non-tender Extremity: COMMON NORMALS: no pedal edema NARRATIVE EXTREMITY EXAM: Left foot, first digit at the tip of the digit, diabetic ulcer measuring 2 x 2 cm, serosanguineous drainage,'s foul-smelling Left foot second digit, tip of the digit, 1 x 1 cm diabetic ulcer, with black eschar Second digit, 1 x 1 cm diabetic ulcer OTHER: Right stump with some erythema, swelling, DP PT pulses on the left foot, diminished, good capillary refill, no mottling Neuro: SENSORIUM/ORIENTATION: Yes oriented to person, Yes oriented to place and No oriented to time Psych: COMMON NORMALS: mental status grossly normal Skin: NARRATIVE SKIN EXAM: Sepsis examination, patient does have sepsis, examination done at 9:30 AM 05/06/2025, DP PT pulses on left foot, diminished, good cap refill, no mottling Data 05/06/25 02:19 05/06/25 12:14 Micro: Microbiology 05/05/25 20:35 Blood Culture - Preliminary Blood SPECIMEN COLLECTED 05/05/25 20:27 Blood Culture - Preliminary Blood SPECIMEN COLLECTED A&P Assessment and plan (1) Bacteremia: (2) Change in mental status: (3) Below-knee amputation of right lower extremity: (4) Hyperglycemia: (5) PICC line infection: (6) Diabetic foot infection: (7) Diabetic ketoacidosis: (8) Sepsis: Plan Diabetic ketoacidosis - Ketones positive, prolonged anion gap, metabolic acidosis Plan - Moved to the intensive care unit - Started on insulin drip -BMP every 4 hours - Once blood sugars less than 200, switch to D5 half-normal saline with 20 KCl - Potassium greater than 4.5 - Will give 20 of potassium given potassium for - Monitor blood sugars every hour - Once anion gap is consistently less than 14, blood sugars reasonable will transition to subcu insulin - Continue normal saline at 125 cc an hour - A liter bolus of normal saline given - Full code - Lovenox for DVT prophylaxis Intractable nausea vomiting - Reglan, Zofran, scopolamine patch Left PICC line - Concerns for left PICC line infection with surrounding erythema, - Concerns for cellulitis - Left PICC line was removed, unfortunately PICC line was discarded before we could culture the tip - Venous ultrasound left arm - Continue vancomycin - Continue cefepime - Follow blood cultures Left foot diabetic foot infection -CT left foot - Podiatry consulted -Wound culture -CRP, Pro-Isai, sed rate -Blood cultures -Vancomycin -Cefepime Altered mental status -Multifactorial from diabetic ketoacidosis, right foot infection, pneumonia -Concerns for sepsis Pneumonia - Chest x-ray shows evidence of pneumonia -Sputum culture -vancomycin -cefepime Sepsis - Features met, given encephalopathy, leukocytosis, source of infection Full code Lovenox for DVT prophylaxis PDMP PDMP Reviewed: Last Reviewed 05/06/25 07:56 by Luis Alfredo Hawkins MD Attestations 2 Medical Necessity Statement*: Patient requires hospitalization, inpatient, greater than 2 midnights for diabetic ketoacidosis, left diabetic foot infection, concern for PICC line infection, sepsis, Coding Level of Care Code Critical Care >/= 30 minutes Critical care time (in minutes): 45 The high probability of a clinically significant, sudden or life threatening deterioration, as referenced in this documentation, required my full and direct attention, intervention and personal management. The critical care time shown is in addition to time spent performing any reported separately billable procedures and includes the following: [x] Data and vital sign review and interpretation [x ] Patient assessment, examination and intervention [x] Medication orders and management [x] Patient/Family updates as able [x] Care Coordination and Documentation. Diagnoses Bacteremia R78.81 Change in mental status R41.82 Below-knee amputation of right lower extremity, initial encounter S88.111A Encounter type: initial encounter Hyperglycemia R73.9 PICC line infection T80.219A Diabetic foot infection E11.628; L08.9 Diabetic ketoacidosis E11.10 Sepsis A41.9
[2025-05-06 12:12] LABS: Glucose Point of Care 312 mg/dL (70-110)
[2025-05-06] MEDS: iohexol 350 mg/mL 500 mL Btl (per mL) IV (12:54)
[2025-05-06 13:01] LABS: Anion Gap 14.8 (5-19); Blood Urea Nitrogen 11 mg/dL (6-20); Calcium 8.6 mg/dL (8.5-10.5); Carbon Dioxide 20 mmol/L (22-29); Chloride 102 mmol/L (98-107); Creatinine Clr Calc Pharmacy 117.8937; Glomerular Filtration Rate 86.9 mL/min (90-130); Glucose 294 mg/dL (65-115); Osmolality Calculated 286 mOsm/kg (285-295); Potassium 3.8 mmol/L (3.5-5.1); Sodium 133 mmol/L (136-145)
[2025-05-06 13:04] LABS: Glucose Point of Care 354 mg/dL (70-110)
[2025-05-06] MEDS: INSULIN REGULAR IN 0.9 % NACL 100 UNIT/100 ML BAG 9.5 UNIT IV (13:05)
[2025-05-06] MEDS: lidocaine 1% 5 ML in potassium chloride premix 100 ML 52.5 ML IV (13:14)
[2025-05-06] MEDS: dexmedeTOMIDine 0.9 % NaCL 400 MCG/100 ML PREMIX 8.49 MCG IV (13:24)
[2025-05-06] MEDS: water for injection-sterile 10 ML 1000 ML (13:40)
[2025-05-06 14:08] LABS: Glucose Point of Care 272 mg/dL (70-110)
[2025-05-06] MEDS: LORazepam 1 MG/0.5 ML injection 0.5 MG IVP (15:18)
[2025-05-06] MEDS: scopolamine 1 mg PATCH 1 PATCH TRANSDERMA (15:19)
[2025-05-06 15:33] LABS: Glucose Point of Care 228 mg/dL (70-110)
--- NOTE | 2025-05-06 16:22 | XRR_ITS ---
PROCEDURE INFORMATION: Exam: XR Left Foot Exam date and time: 05/07/2025 7:47 AM Age: 54 years old Clinical indication: Other: Wound TECHNIQUE: Imaging protocol: Radiologic exam of the left foot. Views: 3 or more views. COMPARISON: CT foot LT w con [id number] 05/06/2025 12:35 PM FINDINGS: Bones/joints: No fracture or dislocation is appreciated. No bone destruction or periostitis is identified. There is a tiny plantar calcaneal spur. Soft tissues: There appears to be an open wound involving the 1st and 2nd toes. There is associated soft tissue swelling. XR/XR foot LT min 3V* [id number] IMPRESSION: 1. Open wounds involving the 1st and 2nd digits with associated soft tissue swelling.
--- NOTE | 2025-05-06 16:23 | PM.CONSULT ---
Providers/Reason For Consult Consulting Physician/Specialty*: Sher Ribera D.P.M. Reason for Consult*: Right diabetic foot ulcer Attending Physician: Luis Alfredo Hawkins MD Primary Care Provider: Yesica Bailey MD History of Present Illness History of Present Illness Analia Hurst is a 54 year old female admitted for sepsis, ketoacidosis, PICC line infection, hyperglycemia, history of right BKA with wound healing complications and left great toe wound and left second toe wound. Patient has a PICC line and long-term antibiotic therapy, patient was bacteremic on admission. Patient's Sergei is present as well as one-to-one sitter. Patient is lethargic. Review of Systems General: Reports: 10 or more systems reviewed and unremarkable except in HPI and below Const: Denies: fever(s) or chills Eyes: Denies: change in vision Card: Denies: chest pain or palpitations Resp: Denies: dyspnea or productive cough GI: Denies: abdominal pain, nausea or vomiting : Denies: flank pain Musc: Reports: extremity swelling, joint stiffness and deformity Skin/Breast: Reports: erythema, sores, changes in skin color, dry skin, nail changes and change in hair Neuro: Reports: numbness in extremities, sensory changes and difficulty walking Psych: Denies: suicidal ideation Endo: Denies: change in body appearance Renny/Lymph: Denies: tender lymph nodes Medications/Allergies Home Medications ?Medication ?Instructions ?Recorded ?Confirmed ?Last Taken ?Type blood sugar diagnostic (OneTouch #300 ea 07/17/23 05/06/25 Unknown Rx Ultra Test strips) 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 meter (OneTouch #1 kit 08/19/23 05/06/25 Unknown Rx Ultra2 Meter) 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 sensor (Dexcom G7 #9 ea 09/30/23 05/06/25 Unknown Rx Sensor device) multivitamin 1 tab PO DAILY@08 #90 tabs 11/10/23 05/06/25 05/04/25 Rx pen needle, diabetic 31 gauge x #100 ea 11/10/23 05/06/25 Unknown Rx 3/16 (TechLITE Pen Needle) 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,research food technologist,cont #1 ea 01/12/24 05/06/25 Unknown Rx (Dexcom G7 Chief Mechanical Engineer) oxycodone 10 mg tablet 10 mg PO Q6H PRN pain 30 days #120 01/12/24 05/06/25 05/04/25 Rx tabs wheel chair ramp #1 ea 02/09/24 05/06/25 Unknown Rx motorized wheel chair #1 ea 03/21/24 05/06/25 Unknown Rx Hinged knee brace, right #1 ea 05/03/24 05/06/25 Unknown Rx pentoxifylline 400 mg 400 mg PO TID #90 tabs 09/26/24 05/06/25 05/04/25 Rx tablet,extended release prazosin 1 mg capsule 1 mg PO BID 30 days #60 caps 10/05/24 05/06/25 05/04/25 Rx amitriptyline 25 mg tablet 25 mg PO BEDTIME #30 tabs 11/08/24 05/06/25 05/04/25 Rx fluconazole 150 mg tablet 150 mg PO Q72H #5 tabs 12/27/24 05/06/25 05/05/25 Rx insulin regular hum U-500 conc 500 150 unit (0.3 mL) SUBCUT TID 30 12/27/24 05/06/25 05/04/25 Rx unit/mL(3 mL) subcut pen (Humulin days #27 mL R U-500 (Conc) Insulin Kwikpen) techlite ultra thin 3/4 inch #100 ea 01/22/25 05/06/25 Unknown Rx needles hydroxyzine HCl 25 mg tablet 25 mg PO BID PRN itching #30 tabs 01/30/25 05/06/25 Unknown Rx 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 sensor (Dexcom G7 #3 ea 02/10/25 05/06/25 Unknown Rx Sensor device) 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,research food technologist,cont #1 ea 02/10/25 05/06/25 Unknown Rx (Dexcom G7 Chief Mechanical Engineer) levofloxacin 500 mg tablet 500 mg PO DAILY #21 tabs 04/25/25 05/06/25 05/04/25 Rx pregabalin 300 mg capsule (Lyrica) 300 mg PO BID@08,20 #60 caps 04/25/25 05/06/25 05/04/25 Rx hospital bed #1 ea 05/03/25 05/06/25 Unknown Rx atorvastatin 40 mg tablet 40 mg PO DAILY 05/06/25 05/06/25 05/04/25 History citalopram 40 mg tablet 40 mg PO DAILY 05/06/25 05/06/25 05/04/25 History clopidogrel 75 mg tablet 75 mg PO DAILY 05/06/25 05/06/25 05/04/25 History furosemide 20 mg tablet 20 mg PO DAILY PRN edema 05/06/25 05/06/25 05/04/25 History lactulose 10 gram/15 mL oral 30 ml PO BID PRN Constipation 05/06/25 05/06/25 Unknown History solution olanzapine 5 mg tablet 5 mg PO BID 05/06/25 05/06/25 05/04/25 History pantoprazole 40 mg tablet,delayed 40 mg PO DAILY 05/06/25 05/06/25 05/04/25 History release potassium chloride 20 mEq 20 meq PO BID PRN while taking 05/06/25 05/06/25 05/04/25 History tablet,extended release Lasix promethazine 25 mg tablet 12.5 mg PO BEDTIME PRN Nausea 05/06/25 05/06/25 Unknown History ropinirole 2 mg tablet 2 mg PO BID 05/06/25 05/06/25 05/04/25 History tizanidine 4 mg tablet 4 mg PO TID PRN Muscle Spasticity 05/06/25 05/06/25 Unknown History Allergies Allergy/AdvReac Type Severity Reaction Status Date / Time ketorolac (From Toradol) Allergy Intermediate rash Verified 03/23/25 13:30 morphine Allergy Intermediate rash Verified 03/23/25 13:30 nitrofurantoin (From Allergy Intermediate rash Verified 03/23/25 13:30 Macrobid) Penicillins Allergy Intermediate hives Verified 03/23/25 13:30 acetaminophen (From Tylenol) Allergy ADR-Nausea Verified 03/23/25 13:30 adhesive Allergy rash Verified 03/23/25 13:30 ibuprofen Allergy ADR-Gastrointestinal Verified 03/23/25 13:30 Upset Current Medications Generic Name Dose Route Start Last Admin Trade Name Freq PRN Reason Stop Dose Admin Cefepime HCl 1,000 mg 05/05/25 22:45 05/06/25 13:40 Cefepime 1,000 Mg Sdv IVP 1,000 mg Q8H [facility] Administration Protocol Docusate Sodium 100 mg 05/06/25 09:00 05/06/25 09:35 Docusate Sodium 100 Mg Capsule PO Not Given BID [facility] Heparin Sodium (Porcine) 5,000 unit 05/05/25 23:15 05/06/25 10:49 Heparin 5,000 Unit/Ml Inj 1 Ml SUBCUT 5,000 unit Q12H SHERI Administration Sodium Chloride 1,000 mls @ 125 mls/hr 05/05/25 23:15 05/06/25 12:01 Sodium Chloride 0.9% IV 125 mls/hr .Q8H SHERI Administration Vancomycin HCl 1,500 mg in 300 mls @ 200 mls/hr 05/06/25 07:30 05/06/25 15:32 Vancocin IV 200 mls/hr Q8H SHERI Administration Insulin Human Regular 100 unit in 100 mls @ 0 mls/hr 05/06/25 10:30 05/06/25 16:20 Myxredlin 100 Unit/100 Ml Bag IV 10 unit/hr PROTOCOL SHERI 10 mls/hr Protocol Titration Per Protocol Dexmedetomidine/Sodium Chloride 400 mcg in 100 mls @ 0 mls/hr 05/06/25 13:15 05/06/25 14:09 Precedex IV 0.4 mcg/kg/hr .Q0M SHERI 11.32 mls/hr Protocol Titration Per Protocol Lorazepam 0.5 mg 05/06/25 13:07 05/06/25 15:18 Lorazepam 1 Mg/0.5 Ml Injection IVP 0.5 mg Q8H PRN Administration ANXIETY Ondansetron HCl 4 mg 05/05/25 23:15 05/06/25 05:44 Ondansetron 2 Mg/Ml Sdv 2 Ml IVP 4 mg Q8H PRN Administration vomiting, or N/V if npo Oxycodone HCl 10 mg 05/06/25 07:58 05/06/25 11:39 Oxycodone 5 Mg Ir Tab/Cap PO 10 mg Q6H PRN Administration SEVERE PAIN Pantoprazole Sodium 40 mg 05/06/25 09:00 05/06/25 09:[address] 40 Mg Tablet PO 40 mg DAILY SHERI Administration PFSH Acute PFSH: Medical History Postoperative bleeding from incision Chondromalacia, knee Plica of knee Medial meniscus tear Acute pain of left knee Gastroparesis due to DM Acute hyperglycemia Arthritis of hand, left Sepsis Pyelonephritis Hypertension Depression Diabetes Insomnia Ulnar nerve impingement Lumbar post-laminectomy syndrome Spinal stenosis, cervical region Surgical History H/O esophagogastroduodenoscopy (05/23/21) H/O flexible sigmoidoscopy (05/23/21) Status post laparoscopic cholecystectomy H/O carpal tunnel repair History of lumbar fusion H/O neck surgery H/O rotator cuff surgery History of hysterectomy H/O tubal ligation S/P left knee arthroscopy Family History Other CAD (coronary artery disease) Cancer Stroke Denies family history of Anesthesia complication Bleeding disorder Social History Smoking and tobacco/nicotine status: never used tobacco/nicotine Second hand smoke exposure: Yes Alcohol intake: former Substance/Drug Use: never Vitals/I&O/Wt Last Vital Signs Temp 98.4 F 05/06/25 11:44 Pulse 91 05/06/25 16:22 Resp 15 05/06/25 11:44 BP 137/69 05/06/25 11:44 Pulse Ox 98 05/06/25 11:44 O2 Del Method Room Air 05/06/25 11:44 05/06/25 05/06/25 05/06/25 06:59 14:59 22:59 Intake Total 540 / 2388 2316.660 / 2316.660 21.667 / 2338.327 Output Total 2400 / 2400 900 / 900 Balance -1860 / -12 1416.660 / 1416.660 21.667 / 1438.327 Weight last 48 hrs Weight 249 lb 9 oz Weight 264 lb 7 oz Weight 200 lb Physical Exam Narrative: GENERAL: Patient is alert and oriented ?3 and in no acute distress. The following is a focused right lower extremity exam. VASCULAR: Dorsalis pedis diminished. Posterior tibial artery diminished. Capillary refill time less than 5 seconds to right distal hallux. Decreased pedal hair growth right lower extremity. NEUROLOGICAL: Protective sensation intact 0/10 sites, tested with [place] Armando monofilament to right foot. DERMATOLOGICAL: Mock grade 2 ulceration to the plantar aspect of the left hallux and distal tuft of right second toe with fibrotic base. Both left great toe and second toe wounds are exposed to fat layer with macerated and hyperkeratotic rim, do not probe to bone, tunnel or undermine. MUSCULOSKELETAL: History of right below knee amputation. No crepitus with soft tissue palpation left foot. Data 05/07/25 04:26 05/07/25 15:42 Micro: Microbiology 05/05/25 20:35 Blood Culture - Preliminary Blood SPECIMEN COLLECTED 05/05/25 20:27 Blood Culture - Preliminary Blood SPECIMEN COLLECTED A&P Assessment and plan (1) Diabetic peripheral neuropathy associated with type 2 diabetes mellitus: (2) Fracture of fifth toe, right, closed: Nondisplaced fracture of the proximal phalanx base metaphyseal and diaphyseal juncture is nonarticular, recommend conservative management. (3) Non-pressure chronic ulcer of other part of right foot with fat layer exposed: PROCEDURE: Full thickness wound debridement Location: Left great toe Local Anesthesia: none due to neuropathy Consent: Verbal Sterile Prep: with alcohol Details: Full thickness sharp debridement of the wound was performed using sterile dermal curette. The wound was debrided of hyperkeratotic rim and devitalized and fibrotic tissue down to subcutaneous tissue, being the deepest level of debridement. Predebridement measurements: 1.4 cm x 1.7 cm x 0.2 cm Postdebridement measurements: 1.6 cm x 1.8 cm x 0.2 cm Hemostasis: Pressure Irrigation: sterile saline Dressing: Silver alginate, Lucia, Omnifix tape. Estimated Blood Loss: minimal Offloading: Nonweightbearing left foot. Plan 54-year-old uncontrolled diabetic female presents with bacteremia and ketoacidosis, history of osteomyelitis at left infection and right below-knee amputation stump, PICC line was placed May 01, 2025. Will clarify PICC line secondary to right BKA stump or left foot. Left foot MRI 04/18/2025 per radiology report shows concern for osteomyelitis of the distal phalanx of the left great toe and of the proximal phalanx of the left fifth toe however CT scan of the left foot on 05/06/2025 reports a fracture of the proximal phalanx of the left fifth toe and inconclusive distal phalanx left great toe. Reviewing images on file left foot x-ray taken 02/11/2023 shows normal distal phalanx of the left great toe. Chart review also reveals patient had a fall and injured her left foot and reported to the emergency department x-rays of the left foot were taken 02/19/2024 and read as negative. Per my interpretation of left foot x-ray AP oblique and lateral view 02/19/2024 there is a acute transverse fracture of the left great toe distal phalanx metaphyseal diaphyseal juncture proximally with intra-articular extension and approximately 1 mm of displacement. This is the area that corresponds to MRI findings most recently suggestive of osteomyelitis. Diagnostic dilemma of osteomyelitis versus subacute fracture of the distal phalanx left great toe. Wound does not probe to bone and is exposed to fat layer. Discussed utility of a bone biopsy of the distal phalanx left great toe for diagnostic purposes, would be at risk of direct extension of infection to the bone and wound creation for bone biopsy and given empiric IV antibiotics already having been administered for several days would compromise culture further adding to risk of bone biopsy. Recommend monitoring, serial x-rays and trending inflammatory markers given the stable appearance of the wound postdebridement of the left great toe. Left great toe was debrided as above, dressed with silver cell, rolled gauze and Omnifix tape. Podiatry will follow. PDMP PDMP Reviewed: Not Reviewed Consult Attestations Medical Necessity Statement: Requires continued hospitalization for medical management of ketoacidosis and bacteremia. Coding Level of Care Code Acute Code for [facility] Fwd Diagnoses Diabetic peripheral neuropathy associated with type 2 diabetes mellitus E11.42 Closed fracture of phalanx of right fifth toe, initial encounter S92.501A Encounter type: initial encounter Non-pressure chronic ulcer of other part of right foot with fat layer exposed L97.512 Comment CPT code 33763
[2025-05-06 16:28] LABS: Lactic Sepsis W/Reflex 1.7 mmol/L (0.5-2.2)
[2025-05-06 16:29] LABS: Anion Gap 13.7 (5-19); Blood Urea Nitrogen 11 mg/dL (6-20); Calcium 8.5 mg/dL (8.5-10.5); Carbon Dioxide 20 mmol/L (22-29); Chloride 104 mmol/L (98-107); Creatinine Clr Calc Pharmacy 117.8937; Glomerular Filtration Rate 86.9 mL/min (90-130); Glucose 194 mg/dL (65-115); Osmolality Calculated 283 mOsm/kg (285-295); Potassium 3.7 mmol/L (3.5-5.1); Sodium 134 mmol/L (136-145)
--- NOTE | 2025-05-06 17:08 | CTR_ITS ---
PROCEDURE INFORMATION: Exam: CT Right Lower Extremity Without Contrast, Knee Exam date and time: 05/07/2025 4:16 PM Age: 54 years old Clinical indication: Edema; No, it is generalized; Prior surgery; Surgery date: 6+ months; Surgery type: Amputation; Additional info: CT stump TECHNIQUE: Imaging protocol: CT of the right lower extremity without contrast was performed. Exam focused on the knee. Radiation optimization: All CT scans at this facility use at least one of these dose optimization techniques: automated exposure control; mA and/or kV adjustment per patient size (includes targeted exams where dose is matched to clinical indication); or iterative reconstruction. COMPARISON: CR (LOW EXM, ) 02/19/2024 5:23 PM RADIATION DOSE METRICS: Total DLP (mGy-cm): 406.38 FINDINGS: Bones/joints: There is diffuse osteopenia. There has been a [id number] amputation. The surgical margins appear smooth. No suspicious osseous erosions are appreciated. No evidence for fracture. There are mild degenerative changes involving the femorotibial and femoropatellar joints. Soft tissues: There is soft tissue edema throughout the visualized lower leg, particularly within the distal stump. CT/CT lower leg RT wo con* [id number] IMPRESSION: 1. Status post [id number]-[id number]-[id number] amputation. 2. Soft tissue edema, particularly within the distal stump. 3. No CT evidence for osteomyelitis. If there is persistent clinical concern, MRI may be helpful for further evaluation.
[2025-05-06] MEDS: prazosin 1 mg Capsule PO (17:15)
[2025-05-06] MEDS: OLANZapine 5 mg TABLET PO (17:16)
[2025-05-06] MEDS: docusate sodium 100 mg Capsule PO (17:16)
[2025-05-06] MEDS: ropinirole 2 mg Tablet PO (17:16)
[2025-05-06] MEDS: insulin glargine 100 units/1 mL 10 UNIT SUBCUT (17:27)
[2025-05-06 17:31] LABS: Estmated Average Glucose 263; Hemoglobin A1C 10.8 % (4.0-6.0)
[2025-05-06] MEDS: dexmedeTOMIDine 0.9 % NaCL 400 MCG/100 ML PREMIX 11.32 MCG IV (17:46)
[2025-05-06 19:40] LABS: Glucose Point of Care 144 mg/dL (70-110)
[2025-05-06 19:40] LABS: Glucose Point of Care 226 mg/dL (70-110)
[2025-05-06 20:19] LABS: Glucose Point of Care 288 mg/dL (70-110)
[2025-05-06] MEDS: dexmedeTOMIDine 0.9 % NaCL 400 MCG/100 ML PREMIX 22.64 MCG IV (20:33)
--- NOTE | 2025-05-06 20:34 | PC.NURSE ---
Recieved report on patient currently on precedex at 0.8 mcg/kg/hr. Insulin drip was off at shift change.
[2025-05-06 20:51] LABS: Blood Urea Nitrogen 12 mg/dL (6-20); Calcium 8.4 mg/dL (8.5-10.5); Carbon Dioxide 17 mmol/L (22-29); Chloride 104 mmol/L (98-107); Creatinine Clr Calc Pharmacy 117.8937; Glomerular Filtration Rate 86.9 mL/min (90-130); Glucose 273 mg/dL (65-115); Osmolality Calculated 283 mOsm/kg (285-295); Sodium 132 mmol/L (136-145)
[2025-05-06] MEDS: sodium chloride 0.9% 1,000 ML 75 ML IV (23:19)
[2025-05-07] VITALS (136 sets, daily range): BP systolic 84–201; BP diastolic 58–99; PULSE 61–107; RESP 10–30; TEMP 36.4–36.9; O2SAT 81–100
[2025-05-07] MEDS: dexmedeTOMIDine 0.9 % NaCL 400 MCG/100 ML PREMIX 22.64 MCG IV ×3 (00:12→07:15)
[2025-05-07 01:58] LABS: Anion Gap 19.6 (5-19); Blood Urea Nitrogen 12 mg/dL (6-20); Calcium 8.5 mg/dL (8.5-10.5); Carbon Dioxide 16 mmol/L (22-29); Chloride 102 mmol/L (98-107); Creatinine Clr Calc Pharmacy 103.1569; Glomerular Filtration Rate 74.5 mL/min (90-130); Glucose 337 mg/dL (65-115); Osmolality Calculated 291 mOsm/kg (285-295); Potassium 3.6 mmol/L (3.5-5.1); Sodium 134 mmol/L (136-145)
[2025-05-07] MEDS: oxyCODONE 5 mg IR Tab/Cap 10 MG PO ×3 (02:17→18:16)
[2025-05-07 05:58] LABS: Basophils # 0.1 10^3/uL (0.0-0.1); Basophils % 0.7 %; Eosinophils % 0.3 %; Hematocrit 41.2 % (36-47); Lymphocytes # 2.7 10^3/uL (0.8-4.8); Lymphocytes % 30.3 %; Mean Corpuscular HGB Conc 31.8 g/dL (30-55); Mean Corpuscular Hemoglobin 27.9 pg (27-33); Mean Corpuscular Volume 87.8 fl (85-98); Mean Platelet Volume 12.5 fL (7.4-10.4); Monocytes # 0.6 10^3/uL (0.2-0.9); Monocytes % 6.9 %; Neutrophils # 5.25 10^3/uL (1.8-7.7); Nucleated Red Blood Cells % 0 %; Platelet Count 94 10^3/cmm (157-399); Red Blood Count 4.69 10^6/uL (3.85-5.65); Red Cell Distribution Width 14.6 % (12.1-15.1); White Blood Count 8.75 10^3/uL (3.29-11.43)
[2025-05-07 06:26] LABS: Alanine Aminotransferase 57 U/L (0-33); Albumin Level 3.5 g/dL (3.5-5.2); Alkaline Phosphatase 210 U/L (35-105); Anion Gap 21.8 (5-19); Aspartate Amino Transferase 64 U/L (0-32); Blood Urea Nitrogen 12 mg/dL (6-20); Calcium 8.4 mg/dL (8.5-10.5); Carbon Dioxide 14 mmol/L (22-29); Chloride 103 mmol/L (98-107); Creatinine Clr Calc Pharmacy 103.7114; Globulin 3.2 g/dL (1.3-4.6); Glomerular Filtration Rate 74.5 mL/min (90-130); Glucose 354 mg/dL (65-115); Osmolality Calculated 294 mOsm/kg (285-295); Potassium 3.8 mmol/L (3.5-5.1); Sodium 135 mmol/L (136-145); Total Bilirubin 0.3 mg/dL (0.15-1.2); Total Protein 6.7 g/dL (6.6-8.7)
[2025-05-07] MEDS: vancomycin 1,500 MG/300 ML PIGGYBACK 200 MG IV ×2 (07:15→16:34)
[2025-05-07] MEDS: cefepime 1,000 mg SDV 1000 MG IVP ×3 (07:16→22:04)
[2025-05-07 07:28] LABS: Glucose Point of Care 354 mg/dL (70-110)
[2025-05-07] MEDS: insulin lispro 100 unit/1 mL SUBCUT (07:28)
[2025-05-07 09:12] LABS: Blood Urea Nitrogen 13 mg/dL (6-20); Calcium 8.8 mg/dL (8.5-10.5); Carbon Dioxide 13 mmol/L (22-29); Chloride 102 mmol/L (98-107); Creatinine Clr Calc Pharmacy 92.1879; Glucose 341 mg/dL (65-115); Osmolality Calculated 292 mOsm/kg (285-295); Sodium 134 mmol/L (136-145)
[2025-05-07] MEDS: ondansetron 2 mg/ML SDV 2 mL 4 MG IVP (09:26)
[2025-05-07] MEDS: enoxaparin 120 mg/0.8 mL Syringe 110 MG SUBCUT ×2 (09:26→21:46)
[2025-05-07] MEDS: pregabalin 150 mg Capsule 300 MG PO ×2 (09:32→20:02)
[2025-05-07] MEDS: prazosin 1 mg Capsule PO ×2 (09:33→17:13)
[2025-05-07] MEDS: ropinirole 2 mg Tablet PO ×2 (09:33→17:13)
[2025-05-07] MEDS: pantoprazole DR 40 mg Tablet PO (09:33)
[2025-05-07] MEDS: citalopram 20 mg Tablet 40 MG PO (09:33)
[2025-05-07] MEDS: clopidogrel 75 mg Tablet PO (09:33)
[2025-05-07] MEDS: OLANZapine 5 mg TABLET PO ×2 (09:33→17:13)
[2025-05-07] MEDS: atorvastatin 40 mg Tablet PO (09:33)
[2025-05-07] MEDS: docusate sodium 100 mg Capsule PO ×2 (09:33→17:13)
[2025-05-07] MEDS: INSULIN REGULAR IN 0.9 % NACL 100 UNIT/100 ML BAG 11 UNIT IV (09:40)
[2025-05-07 09:48] LABS: Glucose Point of Care 337 mg/dL (70-110)
[2025-05-07 10:47] LABS: Glucose Point of Care 272 mg/dL (70-110)
[2025-05-07] MEDS: dexmedeTOMIDine 0.9 % NaCL 400 MCG/100 ML PREMIX 16.98 MCG IV (10:53)
[2025-05-07] MEDS: dextrose 5 % 500 ML 75 ML IV ×2 (11:49→19:24)
[2025-05-07 11:58] LABS: Glucose Point of Care 233 mg/dL (70-110)
[2025-05-07 12:32] LABS: Anion Gap 18.5 (5-19); Blood Urea Nitrogen 9 mg/dL (6-20); Calcium 8.2 mg/dL (8.5-10.5); Carbon Dioxide 16 mmol/L (22-29); Chloride 102 mmol/L (98-107); Creatinine Clr Calc Pharmacy 118.5273; Glomerular Filtration Rate 86.9 mL/min (90-130); Glucose 207 mg/dL (65-115); Osmolality Calculated 281 mOsm/kg (285-295); Potassium 3.5 mmol/L (3.5-5.1); Sodium 133 mmol/L (136-145)
[2025-05-07 12:49] LABS: Glucose Point of Care 192 mg/dL (70-110)
--- NOTE | 2025-05-07 13:06 | P.PN_ITS ---
Subjective 2 Subjective: - Patient was examined this morning, she is alert oriented x 3, following all commands, no nausea, vomiting, fevers, chills - Discussed with her that overnight her anion gap has opened back up she developed metabolic acidosis - Will transition her back to the insuli n drip, monitor in ICU closely, she is in agreement - Start insulin drip protocol, keep n.p. o. - She tells me that she uses 150 units o f regular insulin 3 times daily with meals, denies it being NovoLog/Humalog/Lantus/Levemir she tells me that she has regular insulin she gets from [facility] unfortunately they are closed so I cannot confirm the dose, - ICU nurses also called to conf irm the dose 150 times daily - Patient tells me that she had a PICC l ine placed for IV antibiotics, for her left foot - This test CT scan findings of her left foot, will discuss with podiatry - She tells me that she might of also mi ght been put on antibiotics for her stump - Discussed also her her left arm PICC l ine nonocclusive thrombus in the basilic vein, will start anticoagulant therapy, PICC line was removed yesterday as it was pulled out concerns for infection Vitals/I&O/Wt Last Vital Signs Temp 97.6 F 05/07/25 02:00 Pulse 82 05/07/25 09:30 Resp 16 05/07/25 12:42 BP 146/69 05/07/25 09:30 Pulse Ox 98 05/07/25 12:42 O2 Del Method Room Air 05/07/25 09:30 O2 Flow Rate 2 05/07/25 02:00 05/06/25 05/07/25 05/07/25 22:59 06:59 14:59 Intake Total 1773.739 / 4090.399 499.047 / 4589.446 1753.491 / 1753.491 Output Total 550 / 1450 1000 / 2450 1300 / 1300 Balance 1223.739 / 2640.399 -500.953 / 2139.446 453.491 / 453.491 Weight last 48 hrs Weight 114.305 kg Weight 113.2 kg Weight 119.947 kg Weight 90.718 kg Physical Exam 2 Const: COMMON NORMALS: no acute distress and patient oriented x3 Resp: COMMON NORMALS: normal respiratory effort, No retractions, No use of accessory muscles and clear to auscultation bilaterally AUSCULTATION: clear to auscultation bilaterally Cardio: COMMON NORMALS: regular rate, regular rhythm, S1 normal heart sound present and S2 normal heart sound present RATE: regular rate RHYTHM: r egular rhythm HEART SOUNDS: S1 normal heart sound present and S2 normal heart sound present GI: COMMON NORMALS: Normal to inspection, nondistended, normoactive bowel sounds present, Soft to palpation and non-tender PALPATION: Yes Soft to palpation Extremity: COMMON NORMALS: no pedal edema NARRATIVE EXTREMITY EXAM: Right stump, erythema, swelling, tenderness Left lower extremity, first 3 digits, diabetic ulcers, wrapped Neuro: COMMON NORMALS: patient oriented x3, CN's II-XII intact bilaterally and moves all extremities Psych: COMMON NORMALS: mental status grossly normal Urinary Catheter Management: Ramesh: Cath Placed During This Visit: yes Reason for Continuing Indwelling Catheter: Accurate Measurement of Urinary Output in Critically Ill Patients Urinary Catheter Date of Insertion: 05/06/25 Urinary Catheter Time of Insertion: 16:00 Data 05/07/25 04:26 05/07/25 11:59 Micro: Microbiology 05/05/25 20:35 Blood Culture - Preliminary Blood NEGATIVE TO DATE 05/05/25 20:27 Blood Culture - Preliminary Blood NEGATIVE TO DATE A&P Assessment and plan (1) Bacteremia: (2) Change in mental status: (3) Below-knee amputation of right lower extremity: (4) Hyperglycemia: (5) PICC line infection: (6) Diabetic foot infection: (7) Diabetic ketoacidosis: (8) Sepsis: Plan Diabetic ketoacidosis - Anion gap has prolonged, with metabolic acidosis Plan - Moved to the intensive care unit - Resume insulin drip -BMP every 4 hours - Once blood sugars less than 200, switch to D5 half-normal saline with 20 KCl - Potassium greater than 4.5 - Monitor blood sugars every hour - Once anion gap is consistently less than 14, blood sugars reasonable will transition to subcu insulin - Continue normal saline at 125 cc an hour - Full code - Lovenox for DVT prophylaxis Intractable nausea vomiting - Reglan, Zofran, scopolamine patch Left PICC line - Concerns for left PICC line infection with surrounding erythema, - Concerns for cellulitis - Left PICC line was removed, unfortunately PICC line was discarded before we could culture the tip - Venous ultrasound left arm with evidence of basilic vein nonocclusive thrombus, started on anticoagulant therapy - Continue vancomycin - Continue cefepime - Follow blood cultures Left foot diabetic foot infection -CT left foot CT/CT foot LT w con [id number] IMPRESSION: 1. Soft tissue ulceration/cellulitis of the great toe without discrete fluid collection or underlying acute osseous erosion. If there is ongoing clinical concern for infection, consider correlation with MRI. 2. Subacute minimally displaced fracture of the proximal phalanx 5th toe. - Podiatry consulted -Wound culture -CRP, Pro-Isai, sed rate -Blood cultures -Vancomycin -Cefepime Concerns for osteomyelitis left foot versus fracture - According to patient, patient had antibiotics placed, PICC line placed for concern for osteomyelitis left foot - Will have to reach out to Dr. Carr's office for further detail - CT shows CT/CT foot LT w con [id number] IMPRESSION: 1. Soft tissue ulceration/cellulitis of the great toe without discrete fluid collection or underlying acute osseous erosion. If there is ongoing clinical concern for infection, consider correlation with MRI. 2. Subacute minimally displaced fracture of the proximal phalanx 5th toe. MRI left foot shows MR/MR foot LT wo/w con [id number] IMPRESSION: 1. Large soft tissue ulceration along the plantar surface centered at the first IP joint. 2. Cellulitis surrounding the first phalanx with a focal area of osteomyelitis involving the distal medial first phalanx. 3. Additional osteomyelitis involving nearly the entire proximal phalanx of the fifth toe. Additional surrounding cellulitis. Plan -Spoke to Dr. Ribera he is inclined that this is more likely a fracture than osteomyelitis -ESR 43 -Patient had a PICC line in place left arm which was removed due to concerns for infection as it was pulled out -Will hold off on putting it back in as there is a question if patient has left foot osteomyelitis versus fracture -Will discuss with Dr. Carr, Dr. Ribera, based on shared decision we will decide how to proceed further Right stump cellulitis - Patient was possibly also placed on IV antibiotics for concerns for stump infection -Will clarify with Dr. Carr's office tomorrow -CT of the right stump ordered -Continue IV antibiotics Altered mental status, resolving -Multifactorial from diabetic ketoacidosis, right foot infection, pneumonia -Concerns for sepsis Pneumonia - Chest x-ray shows evidence of pneumonia -Sputum culture -vancomycin -cefepime Sepsis - Features met, given encephalopathy, leukocytosis, source of infection Full code Lovenox for DVT prophylaxis PDMP PDMP Reviewed: Last Reviewed 05/06/25 07:56 by Luis Alfredo Hawkins MD Attestations 2 Medical Necessity Statement*: Patient requires hospitalization for diabetic ketoacidosis, left PICC line basilic vein DVT, left PICC line infection, left foot diabetic and foot infection, right stump cellulitis, altered mental status, on insulin drip, pneumonia Coding Level of Care Code Critical Care >/= 30 minutes Critical care time (in minutes): 45 The high probability of a clinically significant, sudden or life threatening deterioration, as referenced in this documentation, required my full and direct attention, intervention and personal management. The critical care time shown is in addition to time spent performing any reported separately billable procedures and includes the following: [x] Data and vital sign review and interpretation [x ] Patient assessment, examination and intervention [x] Medication orders and management [x] Patient/Family updates as able [x] Care Coordination and Documentation. Diagnoses Bacteremia R78.81 Change in mental status R41.82 Below-knee amputation of right lower extremity, initial encounter S88.111A Encounter type: initial encounter Hyperglycemia R73.9 PICC line infection T80.219A Diabetic foot infection E11.628; L08.9 Diabetic ketoacidosis E11.10 Sepsis A41.9
[2025-05-07] MEDS: potassium phosphate (mEq K) 40 MEQ in sodium chloride 0.9% (100 ml) 100 ML 27.25 MEQ IV (13:51)
[2025-05-07 14:04] LABS: Glucose Point of Care 175 mg/dL (70-110)
[2025-05-07 14:53] LABS: Glucose Point of Care 187 mg/dL (70-110)
--- NOTE | 2025-05-07 14:54 | USR_ITS ---
PROCEDURE INFORMATION: Exam: US Duplex Left Upper Extremity Veins, Limited Exam date and time: 05/07/2025 8:07 AM Age: 54 years old Clinical indication: Screening exam; Piccc line site, S/P removal TECHNIQUE: Imaging protocol: Real-time duplex ultrasound of the left extremity with 2-D tolbert scale, color Doppler flow and spectral waveform analysis including responses to compression and other maneuvers (when performed) with image documentation. Limited exam focused on the left upper extremity veins. COMPARISON: CT cervical spin wo con* [id number] 01/03/2023 10:02 AM FINDINGS: Left deep veins: Unremarkable. Axillary and brachial veins are patent throughout without thrombus. Normal Doppler waveforms. Normal compressibility and/or augmentation response. Visualized internal jugular and subclavian veins are patent. Superficial veins: There is intraluminal thrombus within the basilic vein. This appears to be nonocclusive. The cephalic vein is normal. Soft tissues: Unremarkable. US/[place] [id number] IMPRESSION: 1. Nonocclusive thrombus within the basilic vein.
[2025-05-07 16:05] LABS: Glucose Point of Care 184 mg/dL (70-110)
[2025-05-07 16:05] LABS: Anion Gap 17.6 (5-19); Blood Urea Nitrogen 11 mg/dL (6-20); Calcium 8.4 mg/dL (8.5-10.5); Carbon Dioxide 16 mmol/L (22-29); Chloride 103 mmol/L (98-107); Creatinine Clr Calc Pharmacy 103.7114; Glomerular Filtration Rate 74.5 mL/min (90-130); Glucose 170 mg/dL (65-115); Osmolality Calculated 279 mOsm/kg (285-295); Potassium 3.6 mmol/L (3.5-5.1); Sodium 133 mmol/L (136-145)
[2025-05-07 16:20] LABS: Vancomycin Trough 18.2 ug/mL (10-15)
[2025-05-07 17:20] LABS: Glucose Point of Care 176 mg/dL (70-110)
--- NOTE | 2025-05-07 18:35 | P.PN_ITS ---
Subjective 2 Subjective: Patient seen bedside this a.m., is present. She is more present and alert mentally with appropriate responses. No leukocytosis. Vitals/I&O/Wt Last Vital Signs Temp 97.6 F 05/07/25 02:00 Pulse 82 05/07/25 16:00 Resp 16 05/07/25 18:16 BP 149/80 05/07/25 16:00 Pulse Ox 97 05/07/25 18:16 O2 Del Method Room Air 05/07/25 16:00 O2 Flow Rate 2 05/07/25 02:00 05/07/25 05/07/25 05/07/25 06:59 14:59 22:59 Intake Total 499.047 / 4589.446 1927.716 / 1927.716 Output Total 1000 / 2450 1300 / 1300 Balance -500.953 / 2139.446 627.716 / 627.716 Weight last 48 hrs Weight 252 lb Weight 249 lb 9 oz Weight 264 lb 7 oz Physical Exam 2 Narrative: GENERAL: Patient is alert and oriented ?3 and in no acute distress. The following is a focused right lower extremity exam. VASCULAR: Dorsalis pedis diminished. Posterior tibial artery diminished. Capillary refill time less than 5 seconds to right distal hallux. Decreased pedal hair growth right lower extremity. NEUROLOGICAL: Protective sensation intact 0/10 sites, tested with [place] [employer] monofilament to right foot. DERMATOLOGICAL: Mock grade 2 ulceration to the plantar aspect of the left hallux and distal tuft of right second toe with fibrotic base. Both left great toe and second toe wounds are exposed to fat layer with macerated and hyperkeratotic rim, do not probe to bone, tunnel or undermine. MUSCULOSKELETAL: History of right below knee amputation. No crepitus with soft tissue palpation left foot. Urinary Catheter Management: Ramesh: Cath Placed During This Visit: yes Reason for Continuing Indwelling Catheter: Accurate Measurement of Urinary Output in Critically Ill Patients Urinary Catheter Date of Insertion: 05/06/25 Urinary Catheter Time of Insertion: 16:00 Data 05/07/25 04:26 05/07/25 15:42 Micro: Microbiology 05/05/25 20:35 Blood Culture - Preliminary Blood NEGATIVE TO DATE 05/05/25 20:27 Blood Culture - Preliminary Blood NEGATIVE TO DATE A&P Assessment and plan (1) Diabetic peripheral neuropathy associated with type 2 diabetes mellitus: (2) Fracture of fifth toe, right, closed: Nondisplaced fracture of the proximal phalanx base metaphyseal and diaphyseal juncture is nonarticular, recommend conservative management. (3) Non-pressure chronic ulcer of other part of right foot with fat layer exposed: Plan 54-year-old uncontrolled diabetic female presents with bacteremia and ketoacidosis, history of osteomyelitis at left infection and right below-knee amputation stump, PICC line was placed May 01, 2025. Will clarify PICC line secondary to right BKA stump or left foot. Left foot MRI 04/18/2025 per radiology report shows concern for osteomyelitis of the distal phalanx of the left great toe and of the proximal phalanx of the left fifth toe however CT scan of the left foot on 05/06/2025 reports a fracture of the proximal phalanx of the left fifth toe and inconclusive distal phalanx left great toe. Reviewing images on file left foot x-ray taken 02/11/2023 shows normal distal phalanx of the left great toe. Chart review also reveals patient had a fall and injured her left foot and reported to the emergency department x-rays of the left foot were taken 02/19/2024 and read as negative. Per my interpretation of left foot x-ray AP oblique and lateral view 02/19/2024 there is a acute transverse fracture of the left great toe distal phalanx metaphyseal diaphyseal juncture proximally with intra-articular extension and approximately 1 mm of displacement. This is the area that corresponds to MRI findings most recently suggestive of osteomyelitis. Diagnostic dilemma of osteomyelitis versus subacute fracture of the distal phalanx left great toe. Wound does not probe to bone and is exposed to fat layer. Discussed utility of a bone biopsy of the distal phalanx left great toe for diagnostic purposes, would be at risk of direct extension of infection to the bone and wound creation for bone biopsy and given empiric IV antibiotics already having been administered for several days would compromise culture further adding to risk of bone biopsy. Recommend monitoring, serial x-rays and trending inflammatory markers given the stable appearance of the wound postdebridement of the left great toe. Left great toe wound and left second toe wound dressed with silver cell, rolled gauze and Omnifix tape. Podiatry will follow. PDMP PDMP Reviewed: Not Reviewed Attestations 2 Medical Necessity Statement*: Patient requires hospitalization for diabetic ketoacidosis, left PICC line basilic vein DVT, left PICC line infection, left foot diabetic and foot infection, right stump cellulitis, altered mental status, on insulin drip, pneumonia Coding Level of Care Code Acute Code for Chg Fwd Diagnoses Diabetic peripheral neuropathy associated with type 2 diabetes mellitus E11.42 Closed fracture of phalanx of right fifth toe, initial encounter S92.501A Encounter type: initial encounter Non-pressure chronic ulcer of other part of right foot with fat layer exposed L97.512
[2025-05-07 18:40] LABS: Glucose Point of Care 173 mg/dL (70-110)
[2025-05-07] MEDS: amitriptyline 25 mg Tablet PO (20:02)
[2025-05-07 20:05] LABS: Glucose Point of Care 193 mg/dL (70-110)
[2025-05-07 20:28] LABS: Anion Gap 15.7 (5-19); Blood Urea Nitrogen 11 mg/dL (6-20); Calcium 8.6 mg/dL (8.5-10.5); Carbon Dioxide 17 mmol/L (22-29); Chloride 101 mmol/L (98-107); Creatinine Clr Calc Pharmacy 118.5273; Glomerular Filtration Rate 86.9 mL/min (90-130); Glucose 180 mg/dL (65-115); Osmolality Calculated 274 mOsm/kg (285-295); Potassium 3.7 mmol/L (3.5-5.1); Sodium 130 mmol/L (136-145)
--- NOTE | 2025-05-07 21:11 | PC.NURSE ---
Patient agitated due to not being allowed to eat, medications being given at different times than she takes them at home, and stating that the pain medication is not controlling her pain. Precedex drip restarted to help decrease agitation as patient was moving about in agitation and pulling IV lines.
[2025-05-07 21:37] LABS: Glucose Point of Care 199 mg/dL (70-110)
[2025-05-07 22:13] LABS: Glucose Point of Care 223 mg/dL (70-110)
[2025-05-07 23:10] LABS: Glucose Point of Care 238 mg/dL (70-110)
[2025-05-07] MEDS: dexmedeTOMIDine 0.9 % NaCL 400 MCG/100 ML PREMIX 8.49 MCG IV (23:33)
[2025-05-08] VITALS (155 sets, daily range): BP systolic 92–169; BP diastolic 58–81; PULSE 53–103; RESP 11–27; TEMP 36.6–36.7; O2SAT 69–100; BMI 39.6
[2025-05-08 00:14] LABS: Glucose Point of Care 261 mg/dL (70-110)
[2025-05-08] MEDS: vancomycin 1,500 MG/300 ML PIGGYBACK 200 MG IV ×3 (00:22→17:33)
[2025-05-08 00:41] LABS: Anion Gap 16.7 (5-19); Blood Urea Nitrogen 12 mg/dL (6-20); Calcium 8.6 mg/dL (8.5-10.5); Carbon Dioxide 16 mmol/L (22-29); Chloride 105 mmol/L (98-107); Creatinine Clr Calc Pharmacy 103.7114; Glomerular Filtration Rate 74.5 mL/min (90-130); Glucose 248 mg/dL (65-115); Osmolality Calculated 286 mOsm/kg (285-295); Potassium 3.7 mmol/L (3.5-5.1); Sodium 134 mmol/L (136-145)
[2025-05-08 02:19] LABS: Glucose Point of Care 282 mg/dL (70-110)
[2025-05-08] MEDS: oxyCODONE 5 mg IR Tab/Cap 10 MG PO ×3 (02:29→20:07)
[2025-05-08 02:39] LABS: Glucose Point of Care 296 mg/dL (70-110)
[2025-05-08 03:35] LABS: Glucose Point of Care 284 mg/dL (70-110)
[2025-05-08 04:34] LABS: Basophils # 0.1 10^3/uL (0.0-0.1); Basophils % 0.8 %; Eosinophils # 0.1 10^3/uL (0.0-0.8); Eosinophils % 0.9 %; Hematocrit 42.2 % (36-47); Lymphocytes % 33.9 %; Mean Corpuscular HGB Conc 30.8 g/dL (30-55); Mean Corpuscular Hemoglobin 27.5 pg (27-33); Mean Corpuscular Volume 89.4 fl (85-98); Mean Platelet Volume 12.4 fL (7.4-10.4); Monocytes # 0.5 10^3/uL (0.2-0.9); Monocytes % 6.1 %; Neutrophils # 4.91 10^3/uL (1.8-7.7); Neutrophils % 55.8 %; Nucleated Red Blood Cells % 0 %; Platelet Count 111 10^3/cmm (157-399); Red Blood Count 4.72 10^6/uL (3.85-5.65); Red Cell Distribution Width 14.6 % (12.1-15.1); White Blood Count 8.81 10^3/uL (3.29-11.43)
[2025-05-08 04:34] LABS: Glucose Point of Care 251 mg/dL (70-110)
[2025-05-08] MEDS: INSULIN REGULAR IN 0.9 % NACL 100 UNIT/100 ML BAG IV (04:36)
[2025-05-08] MEDS: dexmedeTOMIDine 0.9 % NaCL 400 MCG/100 ML PREMIX 14.15 MCG IV (04:37)
[2025-05-08 04:58] LABS: Alanine Aminotransferase 39 U/L (0-33); Albumin Level 3.4 g/dL (3.5-5.2); Alkaline Phosphatase 191 U/L (35-105); Anion Gap 17.5 (5-19); Aspartate Amino Transferase 27 U/L (0-32); Blood Urea Nitrogen 11 mg/dL (6-20); Calcium 8.4 mg/dL (8.5-10.5); Carbon Dioxide 16 mmol/L (22-29); Chloride 105 mmol/L (98-107); Creatinine Clr Calc Pharmacy 103.7114; Glomerular Filtration Rate 74.5 mL/min (90-130); Glucose 242 mg/dL (65-115); Osmolality Calculated 287 mOsm/kg (285-295); Potassium 3.5 mmol/L (3.5-5.1); Sodium 135 mmol/L (136-145); Total Bilirubin 0.4 mg/dL (0.15-1.2); Total Protein 6.4 g/dL (6.6-8.7)
[2025-05-08 05:21] LABS: Glucose Point of Care 256 mg/dL (70-110)
--- NOTE | 2025-05-08 05:31 | PC.NURSE ---
Patient asked PSA to let me know she wanted to get up to her wheelchair. Patient became agitated very quickly and was yelling and swearing about she was sick and tired of waiting. She began to strike her bedrails. I went into her room to explain I came as quickly as I could and was on the phone receiving critical lab values and notifying the provider. She remained agitated and yelled no one gives a damn I hurt and it does not make sense why I cant get up whenever I want to. I educated patient again on her risk of falling and she said I wont fall and you did not give me any damn pain medication. I told her I had given her pain medication just a few hours prior and the PSA also reassured her that I had been in the room and given her pain medications as well. 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 Patient educated again on the importance of using her call light and not ambulating without help, especially during the night. Patient up to chair, linens changed, and she has calmed down for the time being but refusing to wear medical monitoring equipment. She was also upset over her blood glucose reading when she has not been able to eat or drink.
--- NOTE | 2025-05-08 06:43 | PC.NURSE ---
Patient was found with two pill bottles. She allowed Joycelyn Cole RN to go through and see what medications she had in her purse. There were 101 Oxycodone 10mg pills. Myself, Joycelyn Cole RN, and Joycelyn Up RN all counted and agreed there was a quanity of 101. Patient agreed to let staff take them and put them in the pyxis. They were placed in a biohazard bag, with a home medication sheet, and tamper proof tape applied to the bag. Myself and charge nurse placed them in the pyxis under patients name. Daughter was notified and said she would come in to get the medication. Patient educated on why this is dangerous and not appropriate. Concert Manager notified, Oncoming nurse notified and will notify provider.
[2025-05-08 06:54] LABS: Glucose Point of Care 218 mg/dL (70-110)
[2025-05-08 08:08] LABS: Anion Gap 14.8 (5-19); Blood Urea Nitrogen 12 mg/dL (6-20); Calcium 8.7 mg/dL (8.5-10.5); Carbon Dioxide 17 mmol/L (22-29); Chloride 105 mmol/L (98-107); Creatinine Clr Calc Pharmacy 103.8945; Glomerular Filtration Rate 74.5 mL/min (90-130); Glucose 211 mg/dL (65-115); Osmolality Calculated 282 mOsm/kg (285-295); Potassium 3.8 mmol/L (3.5-5.1); Sodium 133 mmol/L (136-145)
[2025-05-08 08:33] LABS: Glucose Point of Care 225 mg/dL (70-110)
[2025-05-08] MEDS: ropinirole 2 mg Tablet PO ×2 (08:45→17:32)
[2025-05-08] MEDS: docusate sodium 100 mg Capsule PO ×2 (08:45→17:32)
[2025-05-08] MEDS: enoxaparin 120 mg/0.8 mL Syringe 110 MG SUBCUT ×2 (08:45→21:42)
[2025-05-08] MEDS: clopidogrel 75 mg Tablet PO (08:45)
[2025-05-08] MEDS: atorvastatin 40 mg Tablet PO (08:45)
[2025-05-08] MEDS: pantoprazole DR 40 mg Tablet PO (08:45)
[2025-05-08] MEDS: cefepime 1,000 mg SDV 1000 MG IVP ×2 (08:45→16:11)
[2025-05-08] MEDS: OLANZapine 5 mg TABLET PO ×2 (08:45→17:32)
[2025-05-08] MEDS: pregabalin 150 mg Capsule 300 MG PO ×2 (09:00→20:07)
[2025-05-08] MEDS: LORazepam 1 MG/0.5 ML injection 0.5 MG IVP ×2 (09:01→18:14)
[2025-05-08 10:24] LABS: Glucose Point of Care 225 mg/dL (70-110)
[2025-05-08 10:55] LABS: Glucose Point of Care 223 mg/dL (70-110)
--- NOTE | 2025-05-08 10:57 | P.PN_ITS ---
Subjective 2 Subjective: Having back pain due to hospital bed Overall not feeling well but no further specification Vitals/I&O/Wt Last Vital Signs Temp 98.1 F 05/08/25 04:04 Pulse 60 05/08/25 05:45 Resp 15 05/08/25 04:04 BP 92/61 05/08/25 04:04 Pulse Ox 96 05/08/25 04:04 O2 Del Method Room Air 05/08/25 04:04 O2 Flow Rate 2 05/07/25 02:00 05/07/25 05/08/25 05/08/25 22:59 06:59 14:59 Intake Total 942.8689 / 2870.5849 841.206 / 3711.7909 101.068 / 101.068 Output Total 2700 / 4000 Balance 942.8689 / 1570.5849 -1858.794 / -288.2091 101.068 / 101.068 Weight last 48 hrs Weight 114.67 kg Weight 114.305 kg Physical Exam 2 Narrative: Morbidly obese white female with a right BKA in no acute distress Heart regular normal S1-S2 without murmurs clicks gallops or rubs Lungs diminished throughout mildly but clear Abdomen obese soft nontender nondistended positive bowel sounds Extremities right BKA, left foot wrapped Urinary Catheter Management: Ramesh: Cath Placed During This Visit: yes Reason for Continuing Indwelling Catheter: Accurate Measurement of Urinary Output in Critically Ill Patients Urinary Catheter Date of Insertion: 05/06/25 Urinary Catheter Time of Insertion: 16:00 Data 05/08/25 03:33 05/08/25 07:42 A&P Assessment and plan (1) Bacteremia: (2) Change in mental status: (3) Below-knee amputation of right lower extremity: (4) Hyperglycemia: (5) PICC line infection: (6) Diabetic foot infection: (7) Diabetic ketoacidosis: (8) Sepsis: Plan Diabetic ketoacidosis - remains with metabolic acidosis Plan - - the insulin drip protocol calls for no change at 200-250>? one time order to increase drip by 1. - fluid management per labs results. Intractable nausea vomiting- currently npo and no issue - Reglan, Zofran, scopolamine patch Left PICC line ? infection, picc REMOVED prior to cx. - Venous ultrasound left arm with evidence of basilic vein nonocclusive thrombus, started on anticoagulant therapy - Continue vancomycin - Continue cefepime - Follow blood cultures Left foot diabetic foot infection versus fracture -Appreciate Dr. Ribera's analysis. Conservative management, no current elevation in white count We will check CRP and ESR and procalcitonin Right stump cellulitis - Patient was possibly also placed on IV antibiotics for concerns for stump infection -Will clarify with Dr. Carr's office tomorrow? -CT of the right stump shows soft tissue edema in the distal stump. No evidence for osteo -Continue IV antibiotics Altered mental status, appears to be resolved Pneumonia - Last chest x-ray on 6 6 shows mild to moderate pulmonary edema versus infiltrates. I would lean towards edema Sepsis - Features met, given encephalopathy, leukocytosis, source of infection Full code Lovenox for DVT prophylaxis PDMP PDMP Reviewed: Not Reviewed Attestations 2 Medical Necessity Statement*: Patient requires hospitalization for diabetic ketoacidosis, left PICC line basilic vein DVT, left PICC line infection, left foot diabetic and foot infection, right stump cellulitis, altered mental status, on insulin drip, pneumonia Coding Level of Care Code Acute Code for Chg Fwd Diagnoses Bacteremia R78.81 Change in mental status R41.82 Below-knee amputation of right lower extremity, initial encounter S88.111A Encounter type: initial encounter Hyperglycemia R73.9 PICC line infection T80.219A Diabetic foot infection E11.628; L08.9 Diabetic ketoacidosis E11.10 Sepsis A41.9
--- NOTE | 2025-05-08 12:00 | PC.NURSE ---
Insulin gtt protocol: Break in protocol per Dr Diaz orders. See Message to Nurse orders. Messaged Dr Diaz notifying her that D5 + 20 meq KCL in normally initiated at this point and asked her preference. Dr Diaz does not want IVF started until blood glucose is less than 200.
[2025-05-08 12:27] LABS: Glucose Point of Care 195 mg/dL (70-110)
[2025-05-08 14:10] LABS: Glucose Point of Care 137 mg/dL (70-110)
[2025-05-08] MEDS: dextrose 5%-ns + KCl 20 20 MEQ/1,000 ML BAG 75 MEQ IV (14:17)
[2025-05-08 15:31] LABS: Glucose Point of Care 143 mg/dL (70-110)
[2025-05-08] MEDS: sodium chloride 0.9% 1,000 ML 75 ML IV (16:00)
[2025-05-08 16:09] LABS: Anion Gap 17.5 (5-19); Blood Urea Nitrogen 12 mg/dL (6-20); Calcium 8.5 mg/dL (8.5-10.5); Carbon Dioxide 16 mmol/L (22-29); Chloride 107 mmol/L (98-107); Creatinine Clr Calc Pharmacy 118.7366; Glomerular Filtration Rate 86.9 mL/min (90-130); Glucose 134 mg/dL (65-115); Magnesium 1.9 mg/dL (1.7-2.3); Osmolality Calculated 286 mOsm/kg (285-295); Phosphorus 3.2 mg/dL (2.5-4.5); Potassium 3.5 mmol/L (3.5-5.1); Sodium 137 mmol/L (136-145)
--- NOTE | 2025-05-08 17:49 | P.PN_ITS ---
Subjective 2 Subjective: Patient seen bedside this afternoon. She is resting comfortably in the recliner, is alert and oriented and conversive today. Is in good spirits. Vitals/I&O/Wt Last Vital Signs Temp 98.0 F 05/08/25 08:00 Pulse 60 05/08/25 14:00 Resp 16 05/08/25 14:00 BP 108/60 05/08/25 14:00 Pulse Ox 98 05/08/25 14:00 O2 Del Method Room Air 05/08/25 14:00 O2 Flow Rate 2 05/07/25 02:00 05/08/25 05/08/25 05/08/25 06:59 14:59 22:59 Intake Total 841.206 / 3711.7909 540.761 / 540.761 Output Total 2700 / 4000 Balance -1858.794 / -288.2091 540.761 / 540.761 Weight last 48 hrs Weight 252 lb 12.865 oz Weight 252 lb Physical Exam 2 Narrative: GENERAL: Patient is alert and oriented ?3 and in no acute distress. The following is a focused right lower extremity exam. VASCULAR: Dorsalis pedis diminished. Posterior tibial artery diminished. Capillary refill time less than 5 seconds to right distal hallux. Decreased pedal hair growth right lower extremity. NEUROLOGICAL: Protective sensation intact 0/10 sites, tested with Valentine Armanod monofilament to right foot. DERMATOLOGICAL: Mock grade 2 ulceration to the plantar aspect of the left hallux and distal tuft of right second toe with fibrotic base. Both left great toe and second toe wounds are exposed to fat layer with macerated and hyperkeratotic rim, do not probe to bone, tunnel or undermine. MUSCULOSKELETAL: History of right below knee amputation. No crepitus with soft tissue palpation left foot. Urinary Catheter Management: Ramesh: Cath Placed During This Visit: yes Reason for Continuing Indwelling Catheter: Accurate Measurement of Urinary Output in Critically Ill Patients Urinary Catheter Date of Insertion: 05/06/25 Urinary Catheter Time of Insertion: 16:00 Data 05/08/25 03:33 05/08/25 15:23 A&P Assessment and plan (1) Diabetic peripheral neuropathy associated with type 2 diabetes mellitus: (2) Fracture of fifth toe, right, closed: Nondisplaced fracture of the proximal phalanx base metaphyseal and diaphyseal juncture is nonarticular, recommend conservative management. (3) Non-pressure chronic ulcer of other part of right foot with fat layer exposed: Plan 54-year-old uncontrolled diabetic female presents with bacteremia and ketoacidosis, history of osteomyelitis at left infection and right below-knee amputation stump, PICC line was placed May 01, 2025. Will clarify PICC line secondary to right BKA stump or left foot. Left foot MRI 04/18/2025 per radiology report shows concern for osteomyelitis of the distal phalanx of the left great toe and of the proximal phalanx of the left fifth toe however CT scan of the left foot on 05/06/2025 reports a fracture of the proximal phalanx of the left fifth toe and inconclusive distal phalanx left great toe. Reviewing images on file left foot x-ray taken 02/11/2023 shows normal distal phalanx of the left great toe. Chart review also reveals patient had a fall and injured her left foot and reported to the emergency department x-rays of the left foot were taken 02/19/2024 and read as negative. Per my interpretation of left foot x-ray AP oblique and lateral view 02/19/2024 there is a acute transverse fracture of the left great toe distal phalanx metaphyseal diaphyseal juncture proximally with intra-articular extension and approximately 1 mm of displacement. This is the area that corresponds to MRI findings most recently suggestive of osteomyelitis. Diagnostic dilemma of osteomyelitis versus subacute fracture of the distal phalanx left great toe. Wound does not probe to bone and is exposed to fat layer. Discussed utility of a bone biopsy of the distal phalanx left great toe for diagnostic purposes, would be at risk of direct extension of infection to the bone and wound creation for bone biopsy and given empiric IV antibiotics already having been administered for several days would compromise culture further adding to risk of bone biopsy. Recommend monitoring, serial x-rays and trending inflammatory markers given the stable appearance of the wound postdebridement of the left great toe. Left great toe wound and left second toe wound dressed with silver cell, rolled gauze and Omnifix tape. Podiatry will follow. PDMP PDMP Reviewed: Not Reviewed Attestations 2 Medical Necessity Statement*: Requires continued medical management. Coding Level of Care Code Acute Code for [facility] Fwd Diagnoses Diabetic peripheral neuropathy associated with type 2 diabetes mellitus E11.42 Closed fracture of phalanx of right fifth toe, initial encounter S92.139A Encounter type: initial encounter Non-pressure chronic ulcer of other part of right foot with fat layer exposed L96.635
[2025-05-08] MEDS: prazosin 1 mg Capsule PO (17:58)
[2025-05-08 18:49] LABS: Glucose Point of Care 78 mg/dL (70-110)
[2025-05-08 18:49] LABS: Glucose Point of Care 73 mg/dL (70-110)
[2025-05-08 18:49] LABS: Glucose Point of Care 98 mg/dL (70-110)
[2025-05-08 18:49] LABS: Glucose Point of Care 61 mg/dL (70-110)
[2025-05-08 19:31] LABS: Glucose Point of Care 144 mg/dL (70-110)
[2025-05-08] MEDS: amitriptyline 25 mg Tablet PO (20:07)
[2025-05-08 20:18] LABS: Anion Gap 18.5 (5-19); Blood Urea Nitrogen 11 mg/dL (6-20); Calcium 8.4 mg/dL (8.5-10.5); Carbon Dioxide 16 mmol/L (22-29); Chloride 105 mmol/L (98-107); Creatinine Clr Calc Pharmacy 118.7366; Glomerular Filtration Rate 86.9 mL/min (90-130); Glucose 126 mg/dL (65-115); Osmolality Calculated 283 mOsm/kg (285-295); Potassium 3.5 mmol/L (3.5-5.1); Sodium 136 mmol/L (136-145)
[2025-05-08 20:28] LABS: Magnesium 1.8 mg/dL (1.7-2.3); Phosphorus 3.2 mg/dL (2.5-4.5)
--- NOTE | 2025-05-08 20:34 | PC.NURSE ---
Patient has ripped out two IVs since coming on shift at 1900. Fluids had to be paused temporarily until I am able to restart new IVs. Patient has a history of pulling out IVs.
[2025-05-08] MEDS: citalopram 20 mg Tablet 40 MG PO (21:42)
[2025-05-08 21:43] LABS: Glucose Point of Care 239 mg/dL (70-110)
--- NOTE | 2025-05-08 22:20 | PC.NURSE ---
Patients blood glucose reading went up at 2138 check from being low prior to shift change. Patient believes that the Dextrose solution running is the reason it is going up, versus the food she continues to eat even though staff continues to remind her that she is to remain NPO. She is refusing the NS and Dextrose to be ran currently. She states she can manage her sugar this well at home.
[2025-05-08 22:56] LABS: Glucose Point of Care 180 mg/dL (70-110)
--- NOTE | 2025-05-08 23:22 | PC.NURSE ---
Patient currently refusing medications and monitoring.
[2025-05-08] MEDS: LORazepam 1 MG/0.5 ML injection IVP (23:42)
[2025-05-08 23:57] LABS: Glucose Point of Care 191 mg/dL (70-110)
[2025-05-09] VITALS (123 sets, daily range): BP systolic 120–172; BP diastolic 64–101; PULSE 86–97; RESP 11–27; TEMP 36.4–37.8; O2SAT 87–100; BMI 39.7
--- NOTE | 2025-05-09 00:09 | PC.NURSE ---
Patient has been extremely upset this evening. She is refusing many interventions by staff, inconsolably crying, and lashing out at staff. Efforts to redirect and educate have been unsuccessful. Provider notified and gave order for one time 1mg Lorazepam IVP. Order placed and administered. Patient still refusing to wear monitoring equipment, not compliant with using call light, refusing medications and the dextrose to be administered per protocol.
--- NOTE | 2025-05-09 00:30 | PC.NURSE ---
Provider notified that patient is continuing to refuse for dextrose to be ran with insulin. Insulin drip continuing to be ran at 1 unit/hr. No new orders. Continuing accuchecks. Patient again educated on importance of ordered fluids to be administered with insulin.
[2025-05-09 00:44] LABS: Anion Gap 20.6 (5-19); Blood Urea Nitrogen 10 mg/dL (6-20); Calcium 8.5 mg/dL (8.5-10.5); Carbon Dioxide 15 mmol/L (22-29); Chloride 105 mmol/L (98-107); Creatinine Clr Calc Pharmacy 103.8945; Glomerular Filtration Rate 74.5 mL/min (90-130); Glucose 166 mg/dL (65-115); Osmolality Calculated 287 mOsm/kg (285-295); Potassium 3.6 mmol/L (3.5-5.1); Sodium 137 mmol/L (136-145)
[2025-05-09 00:45] LABS: Magnesium 1.6 mg/dL (1.7-2.3); Phosphorus 3.1 mg/dL (2.5-4.5)
[2025-05-09 01:01] LABS: Glucose Point of Care 173 mg/dL (70-110)
[2025-05-09 01:53] LABS: Glucose Point of Care 173 mg/dL (70-110)
[2025-05-09] MEDS: oxyCODONE 5 mg IR Tab/Cap 10 MG PO ×4 (02:13→22:52)
--- NOTE | 2025-05-09 02:14 | PC.NURSE ---
Went to check patients hourly blood glucose and she was complaining of throbbing at the right BKA and asked me to look at it. There was a small laceration and when I asked her if she knew what happened she said she struck it while transferring to the bedside commode. No bleeding or oozing. I applied a telfa and 4x4 optifoam.
[2025-05-09 03:21] LABS: Glucose Point of Care 188 mg/dL (70-110)
[2025-05-09 04:41] LABS: Glucose Point of Care 244 mg/dL (70-110)
[2025-05-09 04:58] LABS: Magnesium 1.5 mg/dL (1.7-2.3); Phosphorus 2.9 mg/dL (2.5-4.5)
[2025-05-09 05:03] LABS: Alanine Aminotransferase 32 U/L (0-33); Albumin Level 3.8 g/dL (3.5-5.2); Alkaline Phosphatase 214 U/L (35-105); Aspartate Amino Transferase 19 U/L (0-32); Blood Urea Nitrogen 10 mg/dL (6-20); Calcium 8.2 mg/dL (8.5-10.5); Carbon Dioxide 16 mmol/L (22-29); Chloride 105 mmol/L (98-107); Creatinine Clr Calc Pharmacy 118.7366; Globulin 2.9 g/dL (1.3-4.6); Glomerular Filtration Rate 86.9 mL/min (90-130); Glucose 169 mg/dL (65-115); Osmolality Calculated 287 mOsm/kg (285-295); Potassium 3.6 mmol/L (3.5-5.1); Sodium 137 mmol/L (136-145); Total Bilirubin 0.3 mg/dL (0.15-1.2); Total Protein 6.7 g/dL (6.6-8.7)
[2025-05-09 05:20] LABS: Anion Gap 20.6 (5-19)
[2025-05-09 05:36] LABS: Glucose Point of Care 199 mg/dL (70-110)
--- NOTE | 2025-05-09 05:38 | PC.NURSE ---
Patient requesting eggs and coffee. Educated patient on the importance of adhering to NPO regimen and compliance per DKA protocol. Patient is agreeable to waiting and speaking to dayshift provider about whether she may eat or not. She said the provider yesterday said she could eat protein and allowed her to have a hamburger joan.
[2025-05-09] MEDS: vancomycin 1,500 MG/300 ML PIGGYBACK 200 MG IV ×2 (07:39→15:13)
[2025-05-09 07:40] LABS: Glucose Point of Care 280 mg/dL (70-110)
[2025-05-09] MEDS: atorvastatin 40 mg Tablet PO (07:41)
[2025-05-09] MEDS: pregabalin 150 mg Capsule 300 MG PO ×2 (07:41→21:53)
[2025-05-09] MEDS: prazosin 1 mg Capsule PO ×2 (07:41→17:38)
[2025-05-09] MEDS: pantoprazole DR 40 mg Tablet PO (07:42)
[2025-05-09] MEDS: clopidogrel 75 mg Tablet PO (07:42)
[2025-05-09] MEDS: ropinirole 2 mg Tablet PO ×2 (07:43→17:38)
[2025-05-09] MEDS: OLANZapine 5 mg TABLET PO ×2 (07:43→17:38)
[2025-05-09] MEDS: enoxaparin 120 mg/0.8 mL Syringe 110 MG SUBCUT ×2 (07:50→21:53)
[2025-05-09 08:46] LABS: Glucose Point of Care 252 mg/dL (70-110)
[2025-05-09 09:03] LABS: Anion Gap 19.6 (5-19); Blood Urea Nitrogen 8 mg/dL (6-20); Calcium 8.5 mg/dL (8.5-10.5); Carbon Dioxide 16 mmol/L (22-29); Chloride 104 mmol/L (98-107); Creatinine Clr Calc Pharmacy 138.8806; Glomerular Filtration Rate 103.8 mL/min (90-130); Glucose 206 mg/dL (65-115); Osmolality Calculated 286 mOsm/kg (285-295); Potassium 3.6 mmol/L (3.5-5.1); Sodium 136 mmol/L (136-145)
[2025-05-09 09:17] LABS: Ketone (Acetest) Serum Negative (Negative)
[2025-05-09 09:26] LABS: Magnesium 1.7 mg/dL (1.7-2.3); Phosphorus 2.9 mg/dL (2.5-4.5)
[2025-05-09] MEDS: cefepime 1,000 mg SDV 1000 MG IVP ×3 (09:36→22:51)
[2025-05-09] MEDS: magnesium sulfate premix 4 GM/100 ML PREMIX IV (09:42)
[2025-05-09] MEDS: sodium bicarbonate 50 MEQ in sodium chloride 0.45% 1,000 ML 100 MEQ IV ×2 (09:43→17:38)
[2025-05-09 09:54] LABS: Glucose Point of Care 267 mg/dL (70-110)
[2025-05-09 10:55] LABS: Glucose Point of Care 250 mg/dL (70-110)
[2025-05-09] MEDS: LORazepam 1 MG/0.5 ML injection 0.5 MG IVP ×2 (11:20→21:54)
[2025-05-09] MEDS: sodium bicarbonate 50 MEQ in dextrose 5% 250 ML 600 MEQ IV (12:14)
--- NOTE | 2025-05-09 12:20 | P.PN_ITS ---
Subjective 2 Subjective: Patient evaluated this afternoon, was resting in her recliner. Denies any acute events overnight. Vitals/I&O/Wt Last Vital Signs Temp 100.0 F H 05/09/25 08:00 Pulse 95 05/09/25 08:00 Resp 18 05/09/25 08:00 BP 172/86 05/09/25 08:00 Pulse Ox 95 05/09/25 08:00 O2 Del Method Room Air 05/09/25 08:00 O2 Flow Rate 2 05/07/25 02:00 05/08/25 05/09/25 05/09/25 22:59 06:59 14:59 Intake Total 1410.75 / 1951.511 360 / 2311.511 19.333 / 19.333 Output Total 600 / 600 2250 / 2850 400 / 400 Balance 810.75 / 1351.511 -1890 / -538.489 -380.667 / -380.667 Weight last 48 hrs Weight 253 lb 15.56 oz Weight 252 lb 12.865 oz Physical Exam 2 Narrative: GENERAL: Patient is alert and oriented ?3 and in no acute distress. The following is a focused right lower extremity exam. VASCULAR: Dorsalis pedis diminished. Posterior tibial artery diminished. Capillary refill time less than 5 seconds to right distal hallux. Decreased pedal hair growth right lower extremity. NEUROLOGICAL: Protective sensation intact 0/10 sites, tested with Hartwick Armando monofilament to right foot. DERMATOLOGICAL: Mock grade 2 ulceration to the plantar aspect of the left hallux and distal tuft of right second toe with fibrotic base. Both left great toe and second toe wounds are exposed to fat layer with macerated and hyperkeratotic rim, do not probe to bone, tunnel or undermine. MUSCULOSKELETAL: History of right below knee amputation. No crepitus with soft tissue palpation left foot. Urinary Catheter Management: Ramesh: Cath Placed During This Visit: yes Reason for Continuing Indwelling Catheter: Accurate Measurement of Urinary Output in Critically Ill Patients Urinary Catheter Date of Insertion: 05/06/25 Urinary Catheter Time of Insertion: 16:00 Data 05/08/25 03:33 05/09/25 08:17 Micro: Microbiology 05/08/25 13:00 Gram Stain - Final Sputum - Expectorated Sputum Sputum Culture - Preliminary A&P Assessment and plan (1) Diabetic peripheral neuropathy associated with type 2 diabetes mellitus: (2) Fracture of fifth toe, right, closed: Nondisplaced fracture of the proximal phalanx base metaphyseal and diaphyseal juncture is nonarticular, recommend conservative management. (3) Non-pressure chronic ulcer of other part of right foot with fat layer exposed: Plan 54-year-old uncontrolled diabetic female presents with bacteremia and ketoacidosis, history of osteomyelitis at left infection and right below-knee amputation stump, PICC line was placed May 01, 2025. Will clarify PICC line secondary to right BKA stump or left foot. Left foot MRI 04/18/2025 per radiology report shows concern for osteomyelitis of the distal phalanx of the left great toe and of the proximal phalanx of the left fifth toe however CT scan of the left foot on 05/06/2025 reports a fracture of the proximal phalanx of the left fifth toe and inconclusive distal phalanx left great toe. Reviewing images on file left foot x-ray taken 02/11/2023 shows normal distal phalanx of the left great toe. Chart review also reveals patient had a fall and injured her left foot and reported to the emergency department x-rays of the left foot were taken 02/19/2024 and read as negative. Per my interpretation of left foot x-ray AP oblique and lateral view 02/19/2024 there is a acute transverse fracture of the left great toe distal phalanx metaphyseal diaphyseal juncture proximally with intra-articular extension and approximately 1 mm of displacement. This is the area that corresponds to MRI findings most recently suggestive of osteomyelitis. Diagnostic dilemma of osteomyelitis versus subacute fracture of the distal phalanx left great toe. Wound does not probe to bone and is exposed to fat layer. Discussed utility of a bone biopsy of the distal phalanx left great toe for diagnostic purposes, would be at risk of direct extension of infection to the bone and wound creation for bone biopsy and given empiric IV antibiotics already having been administered for several days would compromise culture further adding to risk of bone biopsy. Recommend monitoring, serial x-rays and trending inflammatory markers given the stable appearance of the wound postdebridement of the left great toe. Dressing change performed left great toe and left second toe Hydrofera Blue as primary dressing secured with 2 inch Lucia. Podiatry will follow. PDMP PDMP Reviewed: Not Reviewed Attestations 2 Medical Necessity Statement*: Patient requires hospitalization for diabetic ketoacidosis, left PICC line basilic vein DVT, left PICC line infection, left foot diabetic and foot infection, right stump cellulitis, altered mental status, on insulin drip, pneumonia Coding Level of Care Code Acute Code for [facility] Fwd Diagnoses Diabetic peripheral neuropathy associated with type 2 diabetes mellitus E11.42 Closed fracture of phalanx of right fifth toe, initial encounter S92.501A Encounter type: initial encounter Non-pressure chronic ulcer of other part of right foot with fat layer exposed L97.512
[2025-05-09 12:23] LABS: Glucose Point of Care 242 mg/dL (70-110)
--- NOTE | 2025-05-09 12:26 | PC.NURSE ---
Dr. Ribera in patient rooms changing her left great toe dressing. Patient tolerated well. Patient is requesting lunch rani. She is still on the insulin drip at this time. Patient is up in the chair. Call light within reach.
[2025-05-09 13:01] LABS: Glucose Point of Care 221 mg/dL (70-110)
[2025-05-09] MEDS: INSULIN REGULAR IN 0.9 % NACL 100 UNIT/100 ML BAG IV (13:02)
--- NOTE | 2025-05-09 13:05 | P.PN_ITS ---
Subjective 2 Subjective: Patient is less agitated now that she can have coffee and some protein. She still was not receptive to education about DKA and why it is necessary to run the fluids as per protocol Vitals/I&O/Wt Last Vital Signs Temp 100.0 F H 05/09/25 08:00 Pulse 95 05/09/25 08:00 Resp 18 05/09/25 08:00 BP 172/86 05/09/25 08:00 Pulse Ox 95 05/09/25 08:00 O2 Del Method Room Air 05/09/25 08:00 O2 Flow Rate 2 05/07/25 02:00 05/08/25 05/09/25 05/09/25 22:59 06:59 14:59 Intake Total 1410.75 / 1951.511 360 / 2311.511 25.333 / .333 Output Total 600 / 600 2250 / 2850 400 / 400 Balance 810.75 / 1351.511 -1890 / -538.489 -374.667 / -374.667 Weight last 48 hrs Weight 115.2 kg Weight 114.67 kg Physical Exam 2 Narrative: Morbidly obese white female with a right BKA in no acute distress Heart regular normal S1-S2 without murmurs clicks gallops or rubs Lungs diminished throughout mildly but clear Abdomen obese soft nontender nondistended positive bowel sounds Extremities right BKA, with chronic incisional wound. Left foot just wrapped by Dr. Ribera Urinary Catheter Management: Ramesh: Cath Placed During This Visit: yes Reason for Continuing Indwelling Catheter: Accurate Measurement of Urinary Output in Critically Ill Patients Urinary Catheter Date of Insertion: 05/06/25 Urinary Catheter Time of Insertion: 16:00 Data 05/08/25 03:33 05/09/25 08:17 Micro: Microbiology 05/08/25 13:00 Gram Stain - Final Sputum - Expectorated Sputum Sputum Culture - Preliminary A&P Assessment and plan (1) Bacteremia: (2) Change in mental status: (3) Below-knee amputation of right lower extremity: (4) Hyperglycemia: (5) PICC line infection: (6) Diabetic foot infection: (7) Diabetic ketoacidosis: (8) Sepsis: Plan Diabetic ketoacidosis - remains with metabolic acidosis - Add bicarbonate via IV -Continue insulin drip Intractable nausea vomiting-resolved - Has Reglan, Zofran, as needed and scopolamine patch PICC line -left. - She was admitted with a left PICC line getting IV antibiotics through the wound clinic for I believe her right stump wound versus left toe. - There was concern that this PICC line was infected it was removed. However the no tip culture was obtained. - Will need to eval for replacement of PICC electrical linesworker to discharge Left foot diabetic foot infection versus fracture -Appreciate Dr. Ribera's analysis. Conservative management, no current elevation in white count Right stump chronic wound infection - Patient was possibly also placed on IV antibiotics for concerns for stump infection -CT of the right stump shows soft tissue edema in the distal stump. No evidence for osteo or abscess Altered mental status, resolved Pneumonia? - Last chest x-ray on 6 6 shows mild to moderate pulmonary edema versus infiltrates. I would lean towards edema Sepsis - Features met, given encephalopathy, leukocytosis, source of infection Full code Lovenox for DVT prophylaxis PDMP PDMP Reviewed: Not Reviewed Attestations 2 Medical Necessity Statement*: Patient requires hospitalization for diabetic ketoacidosis, left PICC line basilic vein DVT, left PICC line infection, left foot diabetic and foot infection, right stump cellulitis, altered mental status, on insulin drip, pneumonia Coding Level of Care Code Acute Code for [facility] Fwd Diagnoses Bacteremia R78.81 Change in mental status R41.82 Below-knee amputation of right lower extremity, initial encounter S88.111A Encounter type: initial encounter Hyperglycemia R73.9 PICC line infection T80.219A Diabetic foot infection E11.628; L08.9 Diabetic ketoacidosis E11.10 Sepsis A41.9
[2025-05-09 13:58] LABS: Anion Gap 17.4 (5-19); Blood Urea Nitrogen 8 mg/dL (6-20); Calcium 8.3 mg/dL (8.5-10.5); Carbon Dioxide 20 mmol/L (22-29); Chloride 101 mmol/L (98-107); Creatinine Clr Calc Pharmacy 119.0405; Glomerular Filtration Rate 86.9 mL/min (90-130); Glucose 195 mg/dL (65-115); Osmolality Calculated 284 mOsm/kg (285-295); Potassium 3.4 mmol/L (3.5-5.1); Sodium 135 mmol/L (136-145)
[2025-05-09 14:10] LABS: Glucose Point of Care 297 mg/dL (70-110)
[2025-05-09 15:05] LABS: Glucose Point of Care 391 mg/dL (70-110)
[2025-05-09 16:15] LABS: Glucose Point of Care 245 mg/dL (70-110)
[2025-05-09 16:42] LABS: Anion Gap 17.1 (5-19); Blood Urea Nitrogen 8 mg/dL (6-20); Calcium 8.3 mg/dL (8.5-10.5); Carbon Dioxide 20 mmol/L (22-29); Chloride 102 mmol/L (98-107); Creatinine Clr Calc Pharmacy 119.0405; Glomerular Filtration Rate 86.9 mL/min (90-130); Glucose 184 mg/dL (65-115); Osmolality Calculated 285 mOsm/kg (285-295); Potassium 3.1 mmol/L (3.5-5.1); Sodium 136 mmol/L (136-145)
--- NOTE | 2025-05-09 17:17 | PC.NURSE ---
Titrated insulin drip per protocol. Patient refused dextrose per protocol. This nurse did decrease insulin drip by 1 ml/hr.
[2025-05-09 17:21] LABS: Glucose Point of Care 110 mg/dL (70-110)
[2025-05-09] MEDS: docusate sodium 100 mg Capsule PO (17:38)
[2025-05-09] MEDS: tizanidine 4 mg Tablet PO ×2 (18:06→23:07)
[2025-05-09] MEDS: hyDROXYzine 25 mg Capsule PO (18:06)
[2025-05-09 18:12] LABS: Glucose Point of Care 77 mg/dL (70-110)
[2025-05-09] MEDS: dextrose 5%-ns + KCl 20 20 MEQ/1,000 ML BAG 75 MEQ IV (18:17)
--- NOTE | 2025-05-09 18:26 | PC.NURSE ---
Addendum entered by Rebecca Hughes RN 05/09/25 18:40: Correction, patient blood sugar is 77. Original Note: Patient blood sugar was 71. Dose decreased by 1 ml/hr per protocol. Patient refused dextrose containing fluids and requested peanut butter. Dr. Diaz ok with giving 1 protein source. Patient was given peanut butter, but then did agree to dextrose containing fluids. This nurse started fluids already ordered by Dr. Dickson. Refer to EMR for reference. Patient did state that she feels shaky and really tired . Will reassess.
--- NOTE | 2025-05-09 18:29 | PC.NURSE ---
Addendum entered by Rebecca Hughes RN 05/09/25 18:59: Patient refused to keep wearing medical monitoring equipment at all times. Patient would allow this nurse to check her vital signs every two hours. Addendum entered by Rebecca Hughes RN 05/09/25 18:40: Correction, patient blood sugar at 1800 is 77. Original Note: End of shift note: Patient still on insulin drip per protocol. Patient has requested all day that we stop the insulin drip and restart her home doing of insulin. Dr. Diaz wants patient to stay on insulin drip at this time. Dr. Diaz did allow patient to eat 1 protein source at meal times along with 1 cup of coffee and ice water. The patient blood sugar ranged from 220-290's throughout my shift. At 1800 patient blood sugar was 71. Protcol was followed and insulin drip is now at 5 ml/hr. Dextrose containing fluids were started per protocol. Refer to [facility] for insulin drip titration and protocol. Patient home medications vistaril and tizanidine was restarted per Dr. Diaz. Patient has no complaints at this time.
[2025-05-09 18:49] LABS: Glucose Point of Care 108 mg/dL (70-110)
--- NOTE | 2025-05-09 18:52 | PC.NURSE ---
Insulin drip decreased per protocol to 4 ml/hr. Patient pulled out IV for dextrose fluids. Will have to started another IV. is at the bedside.
[2025-05-09 19:36] LABS: Glucose Point of Care 189 mg/dL (70-110)
--- NOTE | 2025-05-09 20:27 | PC.NURSE ---
At shift change outgoing nurse said she believed patients may have possibly brought insulin in for patient due to a drastic decrease in BG level despite being allowed to eat, which patient has been educated numerous times is not in adherence with DKA protocol and will likely only lengthen course of stay and treatment. I went in to the patients room to assess her and found two insulin pens, one with a needle attached and ready to use, laying on bedside table. Charge nurse Joycelyn Cole RN notified and educated patient about why this is not safe. Patient became agitated and verbally aggressive, swearing at staff, and telling staff she wanted to leave. The patient told staff that she had the pens because providers did not know what kind of insulin she used at home, but this is already documented. The provider was notified and came to speak to the patient about the importance of adhering to treatment and the risks of leaving AMA, as she was requesting. At this time patient is agreeable to staying and stating she will be compliant with treatment, but she has currently removed all IV access. Will attempt to place IVs so medications can be restarted. Daughter notified of the situation. Two insulin pens of Regular insulin were removed from patients room and given to charge nurse.
--- NOTE | 2025-05-09 20:33 | P.PN_ITS ---
Subjective 2 Subjective: Called to evaluate patient wanting to leave AMA. Patient has 2 insulin pens in her room and has been eating. DKA treatment has taken 4 days with intermittent gap. Counseled the patient that she has K that needs to be treated with insulin drip and that low blood sugars are bolstered with D5 fluid. Protocol was not to eat until the anion gap is closed. Patient initially resistant to this but ultimately agreeable to compliance so that she can clear her anion gap acidosis and start food so that she can go home Vitals/I&O/Wt Last Vital Signs Temp 97.6 F 05/09/25 16:30 Pulse 95 05/09/25 08:00 Resp 18 05/09/25 08:00 BP 162/101 05/09/25 14:00 Pulse Ox 100 05/09/25 16:00 O2 Del Method Room Air 05/09/25 08:00 O2 Flow Rate 2 05/07/25 02:00 05/09/25 05/09/25 05/09/25 06:59 14:59 22:59 Intake Total 360 / 2311.511 333.333 / 152.039 9351.501 / 2383.834 Output Total 2250 / 2850 400 / 400 400 / 800 Balance -1890 / -538.489 -66.667 / -66.667 1650.501 / 1583.834 Weight last 48 hrs Weight 115.2 kg Weight 114.67 kg Physical Exam 2 Narrative: General Well-developed obese female with right BKA. Right stump with some edema and chronic venous stasis but not overtly cellulitic in appearance. CV regular rate and rhythm Lungs clear to auscultation bilaterally Urinary Catheter Management: Ramesh: Cath Placed During This Visit: yes Reason for Continuing Indwelling Catheter: Accurate Measurement of Urinary Output in Critically Ill Patients Urinary Catheter Date of Insertion: 05/06/25 Urinary Catheter Time of Insertion: 16:00 Data 05/08/25 03:33 05/09/25 15:54 Micro: Microbiology 05/08/25 13:00 Gram Stain - Final Sputum - Expectorated Sputum Sputum Culture - Preliminary A&P Assessment and plan (1) Diabetic ketoacidosis: Resume resume insulin drip protocol. Patient should be n.p.o. except for noncalorie foods such as Jell-O diet drinks coffee tea without sugar (2) Noncompliance: RN reports patient pulled several IVs to try and prevent IV fluid with D5. Counseled the patient that we need to D5 to offset the insulin so that we can clear the acidosis. She is at least verbally agreeable at this time PDMP PDMP Reviewed: Not Reviewed Attestations 2 Medical Necessity Statement*: Patient remained in the hospital for 1-2 more days for diabetic ketoacidosis treatment Coding Level of Care Code 57366 Diagnoses Diabetic ketoacidosis E11.10 Noncompliance Z91.199 Time Spent (min) 35
[2025-05-09 21:12] LABS: Glucose Point of Care 107 mg/dL (70-110)
[2025-05-09] MEDS: citalopram 20 mg Tablet 40 MG PO (21:54)
[2025-05-09] MEDS: amitriptyline 25 mg Tablet PO (21:54)
[2025-05-09 22:47] LABS: Glucose Point of Care 147 mg/dL (70-110)
--- NOTE | 2025-05-09 23:50 | PC.NURSE ---
Provider notified that patients DKA q4h labs per protocol had been cancelled earlier in the day. Provider gave orders to place new orders for q4h BMP, Mag, and Phos per protocol.
[2025-05-10] VITALS (73 sets, daily range): BP systolic 96–157; BP diastolic 56–97; PULSE 80–98; RESP 10–24; TEMP 36.4–36.7; O2SAT 89–96; BMI 39.9
[2025-05-10] MEDS: vancomycin 1,500 MG/300 ML PIGGYBACK 200 MG IV ×2 (00:30→08:46)
[2025-05-10 00:32] LABS: Glucose Point of Care 143 mg/dL (70-110)
[2025-05-10 01:16] LABS: Blood Urea Nitrogen 10 mg/dL (6-20); Calcium 8.2 mg/dL (8.5-10.5); Carbon Dioxide 21 mmol/L (22-29); Chloride 106 mmol/L (98-107); Creatinine Clr Calc Pharmacy 119.0405; Glomerular Filtration Rate 86.9 mL/min (90-130); Glucose 137 mg/dL (65-115); Magnesium 2.1 mg/dL (1.7-2.3); Osmolality Calculated 287 mOsm/kg (285-295); Phosphorus 2.6 mg/dL (2.5-4.5); Sodium 138 mmol/L (136-145)
[2025-05-10 02:22] LABS: Glucose Point of Care 170 mg/dL (70-110)
[2025-05-10 03:50] LABS: Glucose Point of Care 125 mg/dL (70-110)
[2025-05-10 04:43] LABS: Blood Urea Nitrogen 11 mg/dL (6-20); Calcium 8.1 mg/dL (8.5-10.5); Carbon Dioxide 20 mmol/L (22-29); Chloride 107 mmol/L (98-107); Creatinine Clr Calc Pharmacy 104.1604; Glomerular Filtration Rate 74.5 mL/min (90-130); Glucose 130 mg/dL (65-115); Magnesium 2.1 mg/dL (1.7-2.3); Osmolality Calculated 289 mOsm/kg (285-295); Phosphorus 2.4 mg/dL (2.5-4.5); Sodium 139 mmol/L (136-145)
[2025-05-10] MEDS: oxyCODONE 5 mg IR Tab/Cap 10 MG PO ×2 (05:39→13:08)
[2025-05-10] MEDS: cefepime 1,000 mg SDV 1000 MG IVP (06:18)
--- NOTE | 2025-05-10 06:26 | PC.NURSE ---
Shortly after discussion with Dr. Tamayo and patient agreeing to be complaint with the DKA protocol and Dr. Johnson orders, medications were initiated and labs were ordered. Patient slept through many rounds and blood glucose checks. She reported that she rested very well. Up in chair this morning, watching television and performed some self-care.
[2025-05-10 08:06] LABS: Glucose Point of Care 354 mg/dL (70-110)
[2025-05-10 08:13] LABS: Anion Gap 14.5 (5-19); Blood Urea Nitrogen 12 mg/dL (6-20); Calcium 8.3 mg/dL (8.5-10.5); Carbon Dioxide 19 mmol/L (22-29); Chloride 110 mmol/L (98-107); Creatinine Clr Calc Pharmacy 104.4233; Glomerular Filtration Rate 74.5 mL/min (90-130); Glucose 133 mg/dL (65-115); Magnesium 2.1 mg/dL (1.7-2.3); Osmolality Calculated 292 mOsm/kg (285-295); Phosphorus 2.8 mg/dL (2.5-4.5); Potassium 3.5 mmol/L (3.5-5.1); Sodium 140 mmol/L (136-145)
[2025-05-10 08:30] LABS: Ketone (Acetest) Serum Negative (Negative)
[2025-05-10] MEDS: pantoprazole DR 40 mg Tablet PO (08:44)
[2025-05-10] MEDS: insulin glargine 100 units/1 mL 15 UNIT SUBCUT ×2 (08:44→17:05)
[2025-05-10] MEDS: ropinirole 2 mg Tablet PO (08:44)
[2025-05-10] MEDS: prazosin 1 mg Capsule PO (08:44)
[2025-05-10] MEDS: enoxaparin 120 mg/0.8 mL Syringe 110 MG SUBCUT (08:44)
[2025-05-10] MEDS: sodium bicarbonate 650 mg Tablet PO (08:44)
[2025-05-10] MEDS: OLANZapine 5 mg TABLET PO (08:45)
[2025-05-10] MEDS: atorvastatin 40 mg Tablet PO (08:45)
[2025-05-10] MEDS: clopidogrel 75 mg Tablet PO (08:45)
[2025-05-10] MEDS: docusate sodium 100 mg Capsule PO (08:45)
[2025-05-10] MEDS: hyDROXYzine 25 mg Capsule PO (08:46)
[2025-05-10] MEDS: insulin lispro 100 unit/1 mL SUBCUT ×3 (08:46→17:06)
[2025-05-10] MEDS: LORazepam 1 MG/0.5 ML injection 0.5 MG IVP (08:50)
[2025-05-10] MEDS: pregabalin 150 mg Capsule 300 MG PO (08:50)
[2025-05-10 11:28] LABS: Glucose Point of Care 214 mg/dL (70-110)
[2025-05-10] MEDS: insulin lispro 100 unit/1 mL 10 UNIT SUBCUT ×2 (12:17→17:06)
--- NOTE | 2025-05-10 14:41 | P.PN_ITS ---
Subjective 2 Subjective: Patient evaluated this afternoon, was resting in her recliner. Denies any acute events overnight. Vitals/I&O/Wt Last Vital Signs Temp 98.0 F 05/10/25 03:54 Pulse 97 05/10/25 13:31 Resp 18 05/10/25 13:31 BP 150/80 05/10/25 13:31 Pulse Ox 94 05/10/25 07:30 O2 Del Method Room Air 05/09/25 08:00 O2 Flow Rate 2 05/07/25 02:00 05/09/25 05/10/25 05/10/25 22:59 06:59 14:59 Intake Total 3113.984 / 3447.317 307.250 / 3754.567 240 / 240 Output Total 700 / 1100 650 / 1750 Balance 2413.984 / 2347.317 -342.750 / 2004.567 240 / 240 Weight last 48 hrs Weight 255 lb 2.044 oz Weight 253 lb 15.56 oz Physical Exam 2 Narrative: GENERAL: Patient is alert and oriented ?3 and in no acute distress. The following is a focused right lower extremity exam. VASCULAR: Dorsalis pedis diminished. Posterior tibial artery diminished. Capillary refill time less than 5 seconds to right distal hallux. Decreased pedal hair growth right lower extremity. NEUROLOGICAL: Protective sensation intact 0/10 sites, tested with [place] Arm[employer] monofilament to right foot. DERMATOLOGICAL: Mock grade 2 ulceration to the plantar aspect of the left hallux and distal tuft of right second toe with fibrotic base. Both left great toe and second toe wounds are exposed to fat layer with macerated and hyperkeratotic rim, do not probe to bone, tunnel or undermine. MUSCULOSKELETAL: History of right below knee amputation. No crepitus with soft tissue palpation left foot. Urinary Catheter Management: Ramesh: Cath Placed During This Visit: yes Reason for Continuing Indwelling Catheter: Accurate Measurement of Urinary Output in Critically Ill Patients Urinary Catheter Date of Insertion: 05/06/25 Urinary Catheter Time of Insertion: 16:00 Data 05/08/25 03:33 05/10/25 07:43 Micro: Microbiology 05/08/25 13:00 Gram Stain - Final Sputum - Expectorated Sputum Sputum Culture - Final A&P Assessment and plan (1) Diabetic peripheral neuropathy associated with type 2 diabetes mellitus: (2) Fracture of fifth toe, right, closed: Nondisplaced fracture of the proximal phalanx base metaphyseal and diaphyseal juncture is nonarticular, recommend conservative management. (3) Non-pressure chronic ulcer of other part of right foot with fat layer exposed: Plan 54-year-old uncontrolled diabetic female presents with bacteremia and ketoacidosis, history of osteomyelitis at left infection and right below-knee amputation stump, PICC line was placed May 01, 2025. Will clarify PICC line secondary to right BKA stump or left foot. Left foot MRI 04/18/2025 per radiology report shows concern for osteomyelitis of the distal phalanx of the left great toe and of the proximal phalanx of the left fifth toe however CT scan of the left foot on 05/06/2025 reports a fracture of the proximal phalanx of the left fifth toe and inconclusive distal phalanx left great toe. Reviewing images on file left foot x-ray taken 02/11/2023 shows normal distal phalanx of the left great toe. Chart review also reveals patient had a fall and injured her left foot and reported to the emergency department x-rays of the left foot were taken 02/19/2024 and read as negative. Per my interpretation of left foot x-ray AP oblique and lateral view 02/19/2024 there is a acute transverse fracture of the left great toe distal phalanx metaphyseal diaphyseal juncture proximally with intra-articular extension and approximately 1 mm of displacement. This is the area that corresponds to MRI findings most recently suggestive of osteomyelitis. Diagnostic dilemma of osteomyelitis versus subacute fracture of the distal phalanx left great toe. Wound does not probe to bone and is exposed to fat layer. Discussed utility of a bone biopsy of the distal phalanx left great toe for diagnostic purposes, would be at risk of direct extension of infection to the bone and wound creation for bone biopsy and given empiric IV antibiotics already having been administered for several days would compromise culture further adding to risk of bone biopsy. Recommend monitoring, serial x-rays and trending inflammatory markers given the stable appearance of the wound postdebridement of the left great toe. Left great toe and second toe are improving, no maceration at today's visit. Dressing change performed left great toe and left second toe Hydrofera Blue as primary dressing secured with 2 inch Lucia. Podiatry will follow. PDMP PDMP Reviewed: Not Reviewed Attestations 2 Medical Necessity Statement*: Defer to primary Coding Level of Care Code Acute Code for Chg Fwd Diagnoses Diabetic peripheral neuropathy associated with type 2 diabetes mellitus E11.42 Closed fracture of phalanx of right fifth toe, initial encounter S92.501A Encounter type: initial encounter Non-pressure chronic ulcer of other part of right foot with fat layer exposed L97.512
--- NOTE | 2025-05-10 16:52 | P.DS_ITS ---
Discharge Providers Date of Admission: 05/05/25 21:59 Date of Discharge: May 10, 2025 Attending Provider at Admission: Cary Campos MD Attending Provider at Discharge: Rob Diaz DO Consults: Podiatry Primary Care Provider: Yesica Bailey MD Diagnoses at Discharge Discharge Diagnosis (1) Diabetic ketoacidosis: Status: Acute (2) Noncompliance: Status: Acute Reason for Visit Reason for Visit: cold flashes,malaise&myalgia,R BKA stum cellulliti Brief History: Today patient had actually missed infusion outpatient because she was not feeling well. Initially the patient was not in DKA but she was altered and she was admitted to the hospital. Hospital Course Hospital Course Patient presented altered with hyperglycemia. Eventually did she did show signs of DKA with a metabolic acidosis. We treated her per the DKA protocol. Initially patient was altered and required Precedex. She spent 3 days in the ICU on Precedex when she finally awoke on May 08. Patient underwent a source for underlying infection. A CT scan of her stump was negative for abscess. Her left foot had a fracture of the fifth toe and infection of the great toe. While there was some controversy based on various images Dr. Ribera and I decided that conservative treatment for continued infection in the left great toe was the best option. It was felt that any invasive treatment could spread infection. Also of note the patient had difficulty with her PICC line. We were concerned that the PICC line was infected and we did remove the PICC line. No tip culture was obtained After the patient awoke on the she still took 2 days to resolve from acidosis and ketosis. She was successfully taken off the insulin drip today and has been able to tolerate regular diet. We had a long discussion regarding the care of her diabetes. At this time she did admit to nonadherence to dietary recommendations. She was under the impression that her insulin was both long and short acting. However I did educate her that is just short acting. We have had success on Lantus and regu lar insulin today and I am altering her regimen. She is agreeable to continue Lantus 15 units twice daily and I placed her on regular insulin 10 units before every meal and an additional sliding scale in case her blood sugars are over 200 prior to a meal. She is also can check her blood sugars at any time and directions for elevated blood sugars given. She is to call her environmental services associate if her blood sugars are remaining over 300. Lastly I recommended her meeting with psych specialist to start carb counting or plate counting. This way she can start to adjust the amount of insulin based on what she is eating exactly. She is open to trying this. I believe either her PCP or environmental services associate can make this referral. Physical Exam 2 Narrative: Morbidly obese white female with a right BKA in no acute distress Heart regular normal S1-S2 without murmurs clicks gallops or rubs Lungs diminished throughout mildly but clear Abdomen obese soft nontender nondistended positive bowel sounds Extremities right BKA, with chronic incisional wound. Left foot wrapped Urinary Catheter Management: Ramesh: Cath Placed During This Visit: yes Reason for Continuing Indwelling Catheter: Accurate Measurement of Urinary Output in Critically Ill Patients Urinary Catheter Date of Insertion: 05/06/25 Urinary Catheter Time of Insertion: 16:00 Discharge Data Studies Completed and Pending Completed Studies During Hospitalization Category Date Time Status CT abdomen pelvis w con* [id number] Stat Cat Scan 05/05/25 20:[address] foot LT w con [id number] Stat Cat Scan 05/06/25 10:[address] lower leg RT wo con* [id number] Routine Cat Scan 05/06/25 17:08 Completed XR chest 1V portable [id number] Stat Exams 05/05/25 20:07 Completed XR foot LT min 3V* [id number] Routine Exams 05/06/25 16:22 [place] [id number] Routine Ultrasound 05/07/25 14:54 Completed Pending at discharge Category Date Time Status Blood Culture Stat Lab 05/05/25 20:35 Results C.Diff PCR (Lab) Routine Lab 05/06/25 12:23 Ordered Catheter Tip Culture Stat Lab 05/06/25 10:18 Uncollected Immunochemical Fecal OCB Routine Lab 05/06/25 12:23 Ordered Lactoferrin Routine Lab 05/06/25 12:23 Ordered OVA and Parasites, Conc and PE Routine Lab 05/06/25 12:23 Ordered Salmonella / Shigella / Campy Routine Lab 05/06/25 12:23 Ordered Radiology Impressions Chest X-Ray 05/05/25 20:07 IMPRESSION: 1. Borderline prominence of the cardiac silhouette. 2. Vwuw-bh-cuvtrdbp pulmonary edema versus infiltrates. Abdomen/Pelvis CT 05/05/25 20:13 IMPRESSION: 1. Findings compatible with diarrheal state, infectious or inflammatory gastroenteritis. See above details. 2. Nonspecific heterogeneous and irregular appearance of the liver. Severe hepatic steatosis. Recommend correlation with liver function tests. Hepatomegaly. 3. Splenomegaly. Findings suggesting portal venous hypertension, as described above. 4. Indeterminate right adrenal lesion. Adrenal protocol CT or MRI is recommended to evaluate further. 5. Findings compatible with chronic renal parenchymal disease. Recommend correlation with renal function tests. 6. Indeterminate bilateral renal lesions, as described above. Consider renal ultrasound evaluation to evaluate for potential solid renal lesions. Likely bilateral renal parenchyma scoring. 7. Degenerative and postsurgical changes are demonstrated, as described above. COMMENTS: Consistent with the [employer]'s Incidental Findings Committee white paper (J Am Mumtaz Radiol 2018): Any incidental renal lesion less than 1 cm or classified as too small to characterize, or any incidental cystic renal lesion characterized as simple-appearing, is likely benign. No follow-up imaging is recommended for these lesions per consensus recommendations based on imaging criteria. Foot CT 05/06/25 10:21 IMPRESSION: 1. Soft tissue ulceration/cellulitis of the great toe without discrete fluid collection or underlying acute osseous erosion. If there is ongoing clinical concern for infection, consider correlation with MRI. 2. Subacute minimally displaced fracture of the proximal phalanx 5th toe. Foot X-Ray 05/06/25 16:22 IMPRESSION: 1. Open wounds involving the 1st and 2nd digits with associated soft tissue swelling. Lower Extremity CT 05/06/25 17:08 IMPRESSION: 1. Status post dzwyh-dci-gwhx amputation. 2. Soft tissue edema, particularly within the distal stump. 3. No CT evidence for osteomyelitis. If there is persistent clinical concern, MRI may be helpful for further evaluation. Venous Duplex 05/07/25 14:54 IMPRESSION: 1. Nonocclusive thrombus within the basilic vein. Laboratory Results WBC 8.81 10^3/uL (3.29-11.43) 05/08/25 03:33 RBC 4.72 10^6/uL (3.85-5.65) 05/08/25 03:33 Hgb 13.00 g/dL (11.27-16.99) 05/08/25 03:33 Hct 42.2 % (36-47) 05/08/25 03:33 MCV 89.4 fl (85-98) 05/08/25 03:33 MCH 27.5 pg (27-33) 05/08/25 03:33 MCHC 30.8 g/dL (30-55) 05/08/25 03:33 RDW 14.6 % (12.1-15.1) 05/08/25 03:33 Plt Count 111 10^3/cmm (157-399) L 05/08/25 03:33 MPV 12.4 fL (7.4-10.4) H 05/08/25 03:33 Neut % (Auto) 55.8 % 05/08/25 03:33 Lymph % (Auto) 33.9 % 05/08/25 03:33 [place] % (Auto) 6.1 % 05/08/25 03:33 Eos % (Auto) 0.9 % 05/08/25 03:33 Baso % (Auto) 0.8 % 05/08/25 03:33 Neut # (Auto) 4.91 10^3/uL (1.8-7.7) 05/08/25 03:33 Lymph # (Auto) 3.0 10^3/uL (0.8-4.8) 05/08/25 03:33 [place] # (Auto) 0.5 10^3/uL (0.2-0.9) 05/08/25 03:33 Eos # (Auto) 0.1 10^3/uL (0.0-0.8) 05/08/25 03:33 Baso # (Auto) 0.1 10^3/uL (0.0-0.1) 05/08/25 03:33 Nucleated RBC % (auto) 0 % 05/08/25 03:33 Nucleated RBCs # 0.0 /100WBC 05/08/25 03:33 ESR 43 mm/hr (0-15) H 05/06/25 02:19 Specimen Type Venous 05/05/25 20:07 Sample Site Not specified 05/05/25 20:07 [place] Test N/a 05/05/25 20:07 VBG pH 7.39 (7.32-7.42) 05/05/25 20:07 VBG pCO2 41.9 mmHg (41-51) 05/05/25 20:07 VBG pO2 55.4 mmHg (25-40) H 05/05/25 20:07 VBG HCO3 25.1 mmol/L (24-28) 05/05/25 20:07 VBG Base Excess -0.1 mmol/L (-3.0-3.0) 05/05/25 20:07 VBG Hematocrit 46.5 % (37-47) 05/05/25 20:07 O2 Delivery Device Room air 05/05/25 20:07 Artist Scientific ID [email or web address] 05/05/25 20:07 Sodium 140 mmol/L (136-145) 05/10/25 07:43 Potassium 3.5 mmol/L (3.5-5.1) 05/10/25 07:43 Chloride 110 mmol/L (98-107) H 05/10/25 07:43 Carbon Dioxide 19 mmol/L (22-29) L 05/10/25 07:43 Anion Gap 14.5 (5-19) 05/10/25 07:43 BUN 12 mg/dL (6-20) 05/10/25 07:43 Creatinine 0.8 mg/dL (0.5-0.9) 05/10/25 07:43 GFR Calculation 74.5 mL/min (90-130) L 05/10/25 07:43 Glucose 133 mg/dL (65-115) H 05/10/25 07:43 POC Glucose 214 mg/dL (70-110) H 05/10/25 11:22 Estimat Average Glucose 263 05/06/25 02:19 Hemoglobin A1c 10.8 % (4.0-6.0) H 05/06/25 02:19 Calculated Osmolality 292 mOsm/kg (285-295) 05/10/25 07:43 Lactic Acid 1.7 mmol/L (0.5-2.2) 05/06/25 16:06 Calcium 8.3 mg/dL (8.5-10.5) L 05/10/25 07:43 Phosphorus 2.8 mg/dL (2.5-4.5) 05/10/25 07:43 Magnesium 2.1 mg/dL (1.7-2.3) 05/10/25 07:43 Total Bilirubin 0.3 mg/dL (0.15-1.2) 05/09/25 03:47 AST 19 U/L (0-32) 05/09/25 03:47 ALT 32 U/L (0-33) 05/09/25 03:47 Alkaline Phosphatase 214 U/L (35-105) H 05/09/25 03:47 Troponin T Baseline 16 ng/L (0-10) H 05/05/25 20:27 Troponin T 120 Minute 15.65 ng/L (0-10) H 05/05/25 22:17 Delta Troponin T -0.35 ABS# (0-10) L 05/05/25 22:17 Troponin T Hi Sens 6Hr 15.38 ng/L (0-10) H 05/06/25 02:19 Troponin T Hi Sens 6Hr Delta -0.62 ng/L (0-12) L 05/06/25 02:19 C-Reactive Protein 17.0 mg/L (0.0-4.9) H 05/06/25 09:24 Total Protein 6.7 g/dL (6.6-8.7) 05/09/25 03:47 Albumin 3.8 g/dL (3.5-5.2) 05/09/25 03:47 Globulin 2.9 g/dL (1.3-4.6) 05/09/25 03:47 Procalcitonin 0.07 ng/mL (0-0.5) 05/05/25 20:35 Urine Color Yellow (Yellow) 05/05/25 21:07 Urine Appearance Clear (CLEAR) 05/05/25 21:07 Urine pH 6.0 (5-7) 05/05/25 21:07 Ur Specific [place] 1.034 (1.005-1.030) H 05/05/25 21:07 Urine Protein 2+ (Negative) A 05/05/25 21:07 Urine Glucose (UA) 3+ (Normal) H 05/05/25 21:07 Urine Ketones 3+ (Negative) H 05/05/25 21:07 Urine Blood 1+ (Negative) A 05/05/25 21:07 Urine Nitrate Negative (Negative) 05/05/25 21:07 Urine Bilirubin Negative (Negative) 05/05/25 21:07 Urine Urobilinogen 0.2 mg/dL (Negative) 05/05/25 21:07 Ur Leukocyte Esterase Negative (Negative) 05/05/25 21:07 Urine RBC 0-2 /hpf (0-2) 05/05/25 21:07 Urine WBC 0-5 /hpf (0-5) 05/05/25 21:07 Ur Squamous Epith Cells 0-5 /hpf (0-5) 05/05/25 21:07 Amorphous Sediment Not Reportable 05/05/25 21:07 Urine Bacteria None seen /hpf (NONE) 05/05/25 21:07 Hyaline Casts 0-4 /lpf H 05/05/25 21:07 Vancomycin Trough 18.2 ug/mL (10-15) H 05/07/25 15:42 Serum Ketones Negative (Negative) 05/10/25 07:43 Adenovirus (PCR) Not detected (NOT DETECT) 05/06/25 10:00 C. pneumoniae DNA (PCR) Not detected (NOT DETECT) 05/06/25 10:00 Coronavirus 229E (PCR) Not detected (NOT DETECT) 05/06/25 10:00 Human Metapneumovir PCR Not detected (NOT DETECT) 05/06/25 10:00 Influenza A (H1) PCR Not detected (NOT DETECT) 05/06/25 10:00 Influ A (H1/09) PCR Not detected (NOT DETECT) 05/06/25 10:00 Influenza A (H3) PCR Not detected (NOT DETECT) 05/06/25 10:00 Influenza Type A (PCR) Not detected (NOT DETECT) 05/06/25 10:00 Influenza Type B (PCR) Not detected (NOT DETECT) 05/06/25 10:00 M. pneumoniae (PCR) Not detected (NOT DETECT) 05/06/25 10:00 Parainfluenza 1 (PCR) Not detected (NOT DETECT) 05/06/25 10:00 Parainfluenza 2 (PCR) Not detected (NOT DETECT) 05/06/25 10:00 Parainfluenza 3 (PCR) Not detected (NOT DETECT) 05/06/25 10:00 Parainfluenza 4 (PCR) Not detected (NOT DETECT) 05/06/25 10:00 RSV Type A (PCR) Not detected (NOT DETECT) 05/06/25 10:00 RSV Type B (PCR) Not detected (NOT DETECT) 05/06/25 10:00 Entero/Rhino (PCR) Not detected (NOT DETECT) 05/06/25 10:00 SARS-CoV-2 (PCR) Not detected (NOT DETECT) 05/06/25 10:00 Vitals Last Vital Signs Temp 98.0 F 05/10/25 03:54 Pulse 97 05/10/25 13:31 Resp 18 05/10/25 13:31 BP 150/80 05/10/25 13:31 Pulse Ox 94 05/10/25 07:30 O2 Del Method Room Air 05/09/25 08:00 O2 Flow Rate 2 05/07/25 02:00 Discharge Plan Discharge Patient Disposition: Home Condition: Stable Prescriptions: New Humulin R Regular U-100 Insuln 100 unit/mL solution 10 unit SUBCUT Q8H Qty: 3 0RF insulin glargine [Lantus Solostar U-100 Insulin] 100 unit/mL (3 mL) insulin pen 15 unit SUBCUT BID Qty: 15 0RF Continued (DME) Dexcom G7 Sensor Device See Rx Instructions .Route Qty: 3 3RF Rx Instructions: change every 10 days (DME) Dexcom G7 Agricultural Adviser Misc See Rx Instructions .Route Qty: 1 0RF Rx Instructions: As directed (DME) wheel chair ramp See Rx Instructions .Route .MEDSUPPLY Qty: 1 0RF Rx Instructions: As directed (DME) Hinged knee brace, right See Rx Instructions .Route .MEDSUPPLY Qty: 1 0RF Rx Instructions: As directed pentoxifylline 400 mg tablet extended release 400 mg PO TID Qty: 90 4RF Rx Instructions: must administer with a meal/food amitriptyline 25 mg tablet 25 mg PO BEDTIME Qty: 30 8RF (DME) OneTouch Ultra Test Strip See Rx Instructions .Route Qty: 300 3RF Rx Instructions: to use in onetouch ultra meter TID to check blood sugar 90 supply (DME) 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 meter [OneTouch Ultra2 Meter] Misc See Rx Instructions .ROUTE .COMPLEX Qty: 1 0RF Dose Instruction: USE DIRECTED Rx Instructions: USE DIRECTED (DME) Dexcom G7 Sensor Device See Rx Instructions .ROUTE .MEDSUPPLY Qty: 9 0RF Rx Instructions: Change every 10days multivitamin Tablet 1 tab PO DAILY@08 Qty: 90 4RF (DME) pen needle, diabetic [TechLITE Pen Needle] 31 gauge x 3/16 needle See Rx Instructions .ROUTE .COMPLEX Qty: 100 3RF Dose Instruction: USE DIRECTED Rx Instructions: USE DIRECTED oxycodone 10 mg tablet 10 mg PO Q6H PRN (Reason: pain) 30 Days Qty: 120 0RF (DME) Dexcom G7 Agricultural Adviser Misc See Rx Instructions .Route Qty: 1 0RF Rx Instructions: As directed Patient states needs 7 not 6 (DME) motorized wheel chair See Rx Instructions .Route .MEDSUPPLY Qty: 1 0RF Rx Instructions: Only mode of transportation. Patient does not drive. Home bound prazosin 1 mg capsule 1 mg PO BID 30 Days Qty: 60 10RF fluconazole 150 mg tablet 150 mg PO Q72H Qty: 5 3RF (DME) techlite ultra thin 3/4 inch needles See Rx Instructions .Route .MEDSUPPLY Qty: 100 5RF Rx Instructions: As directed hydroxyzine HCl 25 mg tablet 25 mg PO BID PRN (Reason: itching) Qty: 30 5RF Lyrica 300 mg capsule 300 mg PO BID@08,20 Qty: 60 5RF (DME) hospital bed See Rx Instructions .Route .MEDSUPPLY Qty: 1 0RF Rx Instructions: As directed olanzapine 5 mg tablet 5 mg PO BID lactulose 10 gram/15 mL solution 30 ml PO BID PRN (Reason: Constipation) atorvastatin 40 mg tablet 40 mg PO DAILY citalopram 40 mg tablet 40 mg PO DAILY tizanidine 4 mg tablet 4 mg PO TID PRN (Reason: Muscle Spasticity) clopidogrel 75 mg tablet 75 mg PO DAILY ropinirole 2 mg tablet 2 mg PO BID pantoprazole 40 mg tablet,delayed release (DR/EC) 40 mg PO DAILY promethazine 25 mg tablet 12.5 mg PO BEDTIME PRN (Reason: Nausea) furosemide 20 mg tablet 20 mg PO DAILY PRN (Reason: edema) potassium chloride 20 mEq tablet extended release 20 meq PO BID PRN (Reason: while taking Lasix) Discontinued Humulin R U-500 (Conc) Kwikpen 500 unit/mL (3 mL) insulin pen 150 unit SUBCUT TID 30 Days Qty: 27 7RF levofloxacin 500 mg tablet 500 mg PO DAILY Qty: 21 0RF Discharge Orders: Discharge Order (Routine); Ordered 05/10/25 Ordered By: Rob Diaz Referrals: Yesica Bailey MD [Primary Care Provider, Family Practice] - 05/15/25 3:00 pm Discharge Diet: Diabetic Discharge Activity: Increase activity as tolerated Patient Instructions: Insulin Regular (By injection) (Novolin R, Humulin R, Humulin R..., Insulin Glargine (By injection) (Lantus, Lantus SoloStar, Toujeo, Semglee), Diabetic Gastroparesis (DC), Diabetic Ketoacidosis (DC), Foot Care for People with Diabetes (DC), Hypoglycemia in a Person with Diabetes (DC), Basic Carbohydrate Counting (DC), Meal Planning with the Plate Method (DC), Sepsis (DC), Foot Ulcers in a Person with Diabetes (DC), Acute Wounds (DC), Type 2 Diabetes in the Older Adult (DC), What to Do if Your Blood Sugar is Low (DC), Diabetes Type 1: Management (DC), Opioid Safety Plan of Treatment: Use Lantus insulin as your long-acting insulin taken twice a day 15 units twice a day. You have been changed to regular insulin which is less concentrated than what you are on previously Start by taking 10 units prior to any meal. If your blood sugar is greater then 200 prior to that meal add insulin to the 10 units as following 5810-5269 add 5 units 251-300 add 8 units 301-350 add 10 units Greater than 351 add 15 units If ever your blood sugar is over 350 besides at mealtime give yourself 10 units and recheck in 1 hour. Call your environmental services associate if your blood sugars are consistently running over 300 for 2 days If you cannot get your blood sugar under 400 call environmental services associate or return to the emergency room Discharge Attestations 2 Time Spent in Discharge Care*: greater than 30 min Status at Discharge: Cognitive status at discharge: cognitively intact , Behavioral status at discharge: cooperative , Quality Metrics Clinical Quality Measures [ No reported AMI, CVA or VTE this stay] Coding Level of Care Code Acute Code for Chg Fwd Diagnoses Diabetic ketoacidosis E11.10 Noncompliance Z91.199
[2025-05-10 16:59] LABS: Glucose Point of Care 229 mg/dL (70-110)
--- NOTE | 2025-05-10 18:25 | PC.NURSE ---
Pt was discharged home with home insulin and she stated that her pain medication had already meek sent home with family. All questions answered and medications sent to pharmacy
== END 2025-05-10 17:45 | disposition home or self-care (01) | DRG 264 ==
LOC: ER 22:03 → MEDSURG 22:30 → ICU 05-06 12:43
PROVIDERS: Family Medicine; Internal Medicine; Admitting Provider Internal Medicine; Emergency Provider Emergency Medicine; PCP Family Medicine; Visit Provider Internal Medicine
DX: T80.211A Bloodstream infection due to central venous catheter, initial encounter (principal); A41.9 Sepsis, unspecified organism; E11.10 Type 2 diabetes mellitus with ketoacidosis without coma; J18.9 Pneumonia, unspecified organism; T87.43 Infection of amputation stump, right lower extremity; L03.115 Cellulitis of right lower limb; Z79.899 Other long term (current) drug therapy; Z79.4 Long term (current) use of insulin; Z79.01 Long term (current) use of anticoagulants; Z88.8 Allergy status to other drugs, medicaments and biological substances; Z88.0 Allergy status to penicillin; E66.01 Morbid (severe) obesity due to excess calories; I10 Essential (primary) hypertension; F32.A Depression, unspecified; E11.65 Type 2 diabetes mellitus with hyperglycemia; E11.42 Type 2 diabetes mellitus with diabetic polyneuropathy; S92.911A Unspecified fracture of right toe(s), initial encounter for closed fracture; X58.XXXA Exposure to other specified factors, initial encounter; L97.512 Non-pressure chronic ulcer of other part of right foot with fat layer exposed; E11.621 Type 2 diabetes mellitus with foot ulcer; Z91.148 Patient's other noncompliance with medication regimen for other reason
CPT/HCPCS: 36415; 36416; 51702; 71045; 73630; 73700; 73701; 74177; 80048; 80053; 80202; 81001; 82009; 82803; 82947; 82962; 83036; 83605; 83735; 84100; 84145; 84484; 85025; 85651; 86140; 87040; 87070; 87205; 87486; 87581; 87633; 93005; 93971; 96365; 96372; 96374; 96375; 96376; 99285; J0692; J1171; J1644; J1650; J1815; J2060; J2405; J2765; J3370; J3475; J3480; J7030; J7060; J9999

== ENCOUNTER 2025-05-07 09:00 | Oncology outpatient (recurring) (ONCR) | payer MEDICAID, SELFPAY ==
--- NOTE | 2025-05-02 09:18 | PC.NURSE ---
Called Dr. Carr's office for order clarification. Spoke with Ayanna, verbal order of Rocephin 1g/1000mg. Current order states 1mg.
[2025-05-02] MEDS: cefTRIAXone 1,000 mg SDV 1000 MG IVP (09:36)
[2025-05-03] MEDS: cefTRIAXone 1,000 mg SDV 1000 MG IVP (09:37)
[2025-05-03 09:46] VITALS: BP 170/77; PULSE 90; RESP 18; TEMP 36.6; O2SAT 96
[2025-05-04 09:00] VITALS: BP 171/79; PULSE 90; RESP 18; TEMP 36.4; O2SAT 100
--- NOTE | 2025-05-04 09:22 | PC.NURSE ---
Patient arrived POV for Ceftriaxone administration. Upon arrival Lumen of Picc line was hanging next to inner arm. Patient unsure of when or how it pulled out. Picc line still attached to right arm due to one side of stat lock. Dressing removed, site cleaned with clorhexidine swab and dressed with gauze and sterile dressing. No blood noted upon assessment or redress of site. Patient tolerated well, told to watch for s/s of infection and to call or come in for any worsening s/s. GI lab notified, stated will notify Dr. Welsh and contact patient with next steps.
--- NOTE | 2025-05-04 10:00 | PICC.NOTE ---
Addendum entered by Cesia Singer RN 05/05/25 10:11: Left basilic vein measured 6.1 mm, not 4.1 mm Original Note: [facility] notified vascular access nurse that PICC accidentally pulled out by pt at home. Notified Dr. Ruiz. Orders received to replace PICC. Single lumen PICC placed to left basilic vein. Risks and benefits discussed and informed consent obtained from pt. Due to recent PICC in right arm, Left arm assessed with left basilic vein measuring 4.1 mm, straight, and apparent best choice for placement. Using sterile technique and MST, left basilic vein accessed x 1 stick. Mid-arm circumference measured 10 cm from right AC 40 cm. Trimmed cath 50 cm with 0 cm external length noted. CXR shows tip in distal SVC, in good position for use per radiologist. Line secured with stat-lock. Insertion site covered with Biopatch and TSM. Rocephin 1 gm IVP administered following PICC insertion. [facility] W[facility] notified that PICC was reinserted and antibiotic given. Pt instructed to return to [facility] at 0900 on 05/05/25 as scheduled and OPS at 0900 for the weekend. Pt verbalized understanding.
--- NOTE | 2025-05-07 09:15 | SUR.PREOP ---
No call in and patient no showed. Appears patient is admitted to ICU at this time
== END 2025-05-29 23:59 | disposition home or self-care (01) ==
LOC: ONCMED 05-08 10:06
PROVIDERS: PCP Family Medicine; Visit Provider Thoracic Surgery (Cardiothoracic Vascular Surgery)
DX: Z53.9 Procedure and treatment not carried out, unspecified reason (principal)
CPT/HCPCS: 96374; J0696

== ENCOUNTER 2025-05-18 15:40 | Outpatient (CLI) | payer MEDICAID, SELFPAY ==
--- NOTE | 2025-05-18 16:00 | CTR_ITS ---
PROCEDURE INFORMATION: Exam: CTA Abdominal Aorta and Bilateral Lower Extremities (Run-off) With Contrast Exam date and time: 05/18/2025 4:01 PM Age: 54 years old Clinical indication: Other: Pad; Prior surgery; Surgery date: 6+ months; Surgery type: Gb, hyst, RT leg amputation below knee x 1-2 years ago; HX of uterine cancer; Additional info: deisi Ramirez approved, # [id number] TECHNIQUE: Imaging protocol: Computed tomographic angiography of the of the abdominal aorta, pelvis and bilateral lower extremities with contrast. 3D rendering (Not supervised by radiologist): MIP and/or 3D reconstructed images were created by the technologist. Radiation optimization: All CT scans at this facility use at least one of these dose optimization techniques: automated exposure control; mA and/or kV adjustment per patient size (includes targeted exams where dose is matched to clinical indication); or iterative reconstruction. Contrast material: OMNI 350; Contrast volume: 125 ml; Contrast route: INTRAVENOUS (IV); COMPARISON: 1. CT abdomen pelvis w con* [id number] 05/05/2025 8:[address] abdomen pelvis w con* [id number] 11/06/2020 11:58 AM RADIATION DOSE METRICS: Total DLP (mGy-cm): 1762.14 FINDINGS: Limitations: Study was initially scanned in the portal venous phase of contrast which results in less than optimal opacification of the arteries on this exam. Aorta: There are atherosclerotic changes abdominal aorta.There is no evidence of an abdominal aortic aneurysm. Celiac trunk and mesenteric arteries: No occlusion or significant stenosis. Renal arteries: There is a single renal artery on each side without stenosis. Right iliac arteries: No occlusion or significant stenosis. Right femoral/popliteal arteries: Right common femoral artery is patent. The right profundus femoral artery is patent. There is no enhancement of the right superficial femoral artery. Vascular stent is seen in the distal right superficial femoral artery but this does not enhance and is likely occluded. Right popliteal artery reconstitutes via collaterals. Right infrapopliteal arteries: Some enhancement is seen of the right peroneal and anterior tibial arteries. Right posterior tibial artery is not identified. There is a right BKA. Left iliac arteries: No occlusion or significant stenosis. Left femoral/popliteal arteries: No occlusion or significant stenosis. Left infrapopliteal arteries: No occlusion or significant stenosis. Liver: There is a diffuse decrease in hepatic parenchymal density, consistent with moderate fatty infiltration. There is no focal abnormality within the liver. Gallbladder and biliary ducts: There has been a cholecystectomy. Pancreas: The pancreas is normal. Spleen: The spleen is normal. Adrenal glands: There is a 3.9 cm sized right adrenal nodule not significantly changed from 05/05/2025. This is larger than on 11/06/2020. Further evaluation with adrenal MRI or adrenal protocol CT scan is suggested. The left adrenal gland is normal. Kidneys and ureters: There are hypoenhancing cortical abnormalities of the left kidney. These findings most likely represent areas of scarring related to the prior pyelonephritis seen on 10/11/2020. Please correlate with the present clinical findings.. There is no evidence of renal or ureteral calcifications. Stomach and bowel: There is no evidence of colitis/diverticulitis. There is no evidence of intestinal obstruction. Appendix: A normal appendix is identified. Urinary bladder: Unremarkable. No mass. Reproductive: There has been a hysterectomy. Intraperitoneal space: There is no evidence of free intraperitoneal fluid. Lymph nodes: There are mildly prominent periaortic lymph nodes unchanged from 05/05/2025. No adenopathy is identified. Bones/joints: There is a right estam-okk-ebvw amputation which appears well healed. There are findings of L4-L5 PLIF. There is a small effusion in the left knee, mainly in the suprapatellar bursa. There is no evidence of acute fracture. There are findings of right BKA Soft tissues: Soft tissue swelling of the left great toe is again identified CT/CT angio abd aorta runof [id number] IMPRESSION: 1. Limited exam due to timing of contrast 2. Occluded right superficial femoral artery 3. No significant stenosis or occlusion in the arteries of the left lower extremity 4. Fatty liver 5. Right adrenal nodule, further evaluation such as with adrenal MRI or adrenal protocol CT scan is suggested
[2025-05-18] MEDS: iohexol 350 mg/mL 500 mL Btl (per mL) IV (16:19)
== END 2025-05-18 15:41 | disposition home or self-care (01) ==
LOC: RAD 15:41
PROVIDERS: PCP Family Medicine; Visit Provider Family Medicine
DX: I73.9 Peripheral vascular disease, unspecified (principal); S98.131A Complete traumatic amputation of one right lesser toe, initial encounter; E11.628 Type 2 diabetes mellitus with other skin complications; L08.9 Local infection of the skin and subcutaneous tissue, unspecified; I77.1 Stricture of artery; X58.XXXA Exposure to other specified factors, initial encounter
CPT/HCPCS: 75635

== ENCOUNTER 2025-05-31 16:00 | Emergency (ER) | payer MEDICAID, SELFPAY ==
--- OUTSIDE RECORDS SUMMARY | 2025-05-24 11:00 | XMS_ITS | Encounter Summary ---
[facility] Address 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 Name Role Phone Unavailable Primary Care Provider Unavailabl e Reason for Referral * Nuclear Medicine (Urgent) - Closed Specialty Diagnoses / Procedures Referred By Donna campuzano Referred To Contact Radiology Diagnoses Chest pain, unspecified type Coronary artery disease due to type 2 diabetes mellitus (CMS/HCC) Procedures NM PHARMACOLOGICAL STRESS TEST Gretchen Michael DO [address] [address] Phone: tel: fax: [facility] [address] [address] Phone: tel: fax: Referral ID Status Reason Start Date Expiration Date V isits Requested Visits Authorized [id number] Closed F CTS to Schedule 05/24/2025 06/24/2026 1 1 * Nuclear Medicine (Urgent) - Closed Specialty Diagnoses / Procedures Referred By Donna campuzano Referred To Contact Radiology Diagnoses Chest pain, unspecified type Coronary artery disease due to type 2 diabetes mellitus (CMS/HCC) Procedures NM MYOCARD PERF IMAG SPECT MULT Gretchen Michael DO [address] [address] Phone: tel: fax: [facility] Medicine [address] [place], [place] [address] [address] Phone: tel: fax: Referral ID Status Reason Start Date Expiration Date V isits Requested Visits Authorized [id number] Closed SGF CTS to Schedule 05/25/2025 06/24/2025 1 1 Encounter Details Date Type Department Care Team (Latest Contact Info) Description 05/24/2025 11:00 AM CDT Telephone Check Up [facility] [place] [address] [place] [address] Gretchen Michael DO [address] [place] [address] Chest pain, unspecified type (Primary Dx); Coronary artery disease due to type 2 diabetes mellitus (CMS/HCC); Calcific aortic stenosis; Femoral artery occlusion Social History Tobacco Use Types Packs/Day Years Used Date Smoking Tobacco: Some Days Cigarettes Smokeless Tobacco: Never Comments:Has cut down to a h jessica a pack per week. Around a lot of 2nd smokers Alcohol Use Standard Drinks/Week Comments Not Currently 0 (1 standard drink = 0.6 oz pur e alcohol) Feeling Safe Answer Date Recorded Are you in a relationship wi th someone who hurts you emotionally and/or physically? 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 This encounter was completed via two-way synchronous audio only communication. Video technology available to provider, but patient not capable of, or doesn't consent to, use of video. Time spent in discussion with patient: 13 minutes. 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 We discussed treatment options including ongoing medical management with wound care and exploring hyperbaric oxygen treatments, a femoral to above knee popliteal artery bypass, and an aortic endarterectomy with or without the femoral to above knee poplitea artery bypass. She would like to pursue aggressive revascularization. We discussed that with her history of [place] she will need a stress test and cardiac clearance prior to scheduling surgery. I have recomme nded that while we arrange for this to be completed she should continue with wound care and discusshyperbaric O2 with the wound care center. She was agreeable to this plan. documented in this encounter Plan of Treatment Not on file documented as of this encounter Results * (ABNORMAL) NM MYOCARD PERF IMAG SPECT MULT (05/29/2025 12:44 PM CDT) [facility] Signature EJECTION FRACTION 70(A) 50 - 65 % INTERFACE SYSTEM 05/29/2025 12:4 4 PM CDT Impressions INTERFACE SYSTEM - 05/29/2025 2:48 PM CDT IMPRESSION: 1. Negative electrocardiographic response to pharmacologic stress. This is reported separately. 2. Normal appearing myocardial perfusion. No evidence of significant reversible ischemia or of prior myocardial infarction. The findings described above appear artifactual. Soft tissue attenuation is very prominent (5ft 7in 242lb patient). 3. No evidence of left ventricular decompensation with pharmacologic stress. 4. Normal left ventricular function. The LVEF is 70%. Narrative INTERFACE SYSTEM - 05/29/2025 2:48 PM CDT MYOVIEW MYOCARDIAL PERFUSION IMAGING,REST/STRESS, PHARMACOLOGIC STRESS One day Rest/Stress, single isotope, gated myocardial perfusion SPECT imaging with pharmacologic stress. Indications: chest pain shortness of breath, assess myocardial perfusion and function. The overall quality of the study is adequate. Prior study for comparison: None.. After a baseline ECG and BP had been obtained, 0.4 mg of Regadenoson were injected intravenously as a bolus. 32.90 mCi of Myoview were then injected intravenously and SPECT images were obtained. Resting images had been obtained approximately an hour earlier after the intravenous injection of 10.40 mCi of Myoview. The data was reconstructed in the short, horizontal long and vertical long axis views and tomographic slices were generated. Findings: The patient is 5 feet 7 inches tall and weighs 242 pounds. The left ventricular cavity is within normal limits in size on both sets of images. The left ventricular cavity did not appear to dilate significantly with the regadenoson stress. Pulmonary activity appears to be within normal limits.. Left ventricular wall thickness appears to be within normal limits.. The right ventricle appears to be within normal limits in size and tracer uptake.. Splanchnic activity appears prominent.. Soft tissue attenuation is prominent, particularly in the lateral chest wall region. On the immediate post infusion images, the distribution of tracer around the left ventricle is relatively uniform without significant segmental perfusion abnormality. Any minor inhomogeneity present is commensurate with the degree of soft tissue attenuation noted.. The supine stress images demonstrate similar findings with a minor relative decrease in the anterior wall relative to the fairly intense degree of activity in the inferoseptal and inferolateral segments. The mid to basilar septum is focally thinned. On the resting images, there is no significant relative change in tracer concentration throughout any segment.. In corroboration of this, the summed stress score and the summed rest score are both zero. The transient ischemic dilatation ratio is 1.12 The gated images reveal prominent soft tissue attenuation with adequate wall motion and wall thickening throughout.. The BP went from 187/70 with a hr of 99 to 177/69 with a hr of 108 with the Regadenoson infusion. The patient experienced no significant adverse side effects. The baseline ECG shows normal sinus rhythm. Right axis deviation and possible right atrial enlargement were noted. No significant arrhythmias were noted. No significant ST changes were observed. Procedure Note Pj Da Silva MD - 05/29/2025 MYOVIEW MYOCARDIAL PERFUSION IMAGING,REST/STRESS, PHARMACOLOGIC STRESS One day Rest/Stress, single isotope, gated myocardial perfusion SPECT imaging with pharmacologic stress. Indications: chest pain shortness of breath, assess myocardial perfusion and function. The overall quality of the study is adequate. Prior study for comparison: None.. After a baseline ECG and BP had been obtained, 0.4 mg of Regadenoson were injected intravenously as a bolus. 32.90 mCi of Myoview were then injected intravenously and SPECT images were obtained. Resting images had been obtained approximately an hour earlier after the intravenous injection of 10.40 mCi of Myoview. The data was reconstructed in the short, horizontal long and vertical long axis views and tomographic slices were generated. Findings: The patient is 5 feet 7 inches tall and weighs 242 pounds. The left ventricular cavity is within normal limits in size on both sets of images. The left ventricular cavity did not appear to dilate significantly with the regadenoson stress. Pulmonary activity appears to be within normal limits.. Left ventricular wall thickness appears to be within normal limits.. The right ventricle appears to be within normal limits in size and tracer uptake.. Splanchnic activity appears prominent.. Soft tissue attenuation is prominent, particularly in the lateral chest wall region. On the immediate post infusion images, the distribution of tracer around the left ventricle is relatively uniform without significant segmental perfusion abnormality. Any minor inhomogeneity present is commensurate with the degree of soft tissue attenuation noted.. The supine stress images demonstrate similar findings with a minor relative decrease in the anterior wall relative to the fairly intense degree of activity in the inferoseptal and inferolateral segments. The mid to basilar septum is focally thinned. On the resting images, there is no significant relative change in tracer concentration throughout any segment.. In corroboration of this, the summed stress score and the summed rest score are both zero. The transient ischemic dilatation ratio is 1.12 The gated images reveal prominent soft tissue attenuation with adequate wall motion and wall thickening throughout.. The BP went from 187/70 with a hr of 99 to 177/69 with a hr of 108 with the Regadenoson infusion. The patient experienced no significant adverse side effects. The baseline ECG shows normal sinus rhythm. Right axis deviation and possible right atrial enlargement were noted. No significant arrhythmias were noted. No significant ST changes were observed. IMPRESSION: 1. Negative electrocardiographic response to pharmacologic stress. This is reported separately. 2. Normal appearing myocardial perfusion. No evidence of significant reversible ischemia or of prior myocardial infarction. The findings described above appear artifactual. Soft tissue attenuation is very prominent (5ft 7in 242lb patient). 3. No evidence of left ventricular decompensation with pharmacologic stress. 4. Normal left ventricular function. The LVEF is 70%. us Gretchen Collins Alec DO NM ORDERABLES Final Re sult INTERFACE SYSTEM Refer to clinic/hospital department * NM PHARMACOLOGICAL STRESS TEST (05/29/2025 11:37 AM CDT) 05/29/2025 11:4 0 AM CDT Narrative INTERFACE SYSTEM - 05/29/2025 1:42 PM CDT NUCLEAR MEDICINE PHARMACOLOGIC STRESS TEST After a baseline blood pressure and ECG had been obtained, 0.4 mg of regadenoson were injected intravenously. ECG's were obtained at appropriate intervals thereafter. Findings: The resting blood pressure was 187/70 and resting heart rate 99. With the regadenoson infusion, the blood pressure went to 177/69] and heart rate to 108. The baseline ECG shows normal sinus rhythm. Right axis deviation was noted. Possible right atrial enlargement was present.]. The patient did not experience any significant adverse side effects. No significant arrhythmias were observed. No significant ST changes were noted. IMPRESSIONS: 1) Negative pharmacologic ecg stress test. 2) The imaging portion of the study is reported separately. Procedure Note Pj Da Silva MD - 05/29/2025 NUCLEAR MEDICINE PHARMACOLOGIC STRESS TEST After a baseline blood pressure and ECG had been obtained, 0.4 mg of regadenoson were injected intravenously. ECG's were obtained at appropriate intervals thereafter. Findings: The resting blood pressure was 187/70 and resting heart rate 99. With the regadenoson infusion, the blood pressure went to 177/69] and heart rate to 108. The baseline ECG shows normal sinus rhythm. Right axis deviation was noted. Possible right atrial enlargement was present.]. The patient did not experience any significant adverse side effects. No significant arrhythmias were observed. No significant ST changes were noted. IMPRESSIONS: 1) Negative pharmacologic ecg stress test. 2) The imaging portion of the study is reported separately. 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
--- OUTSIDE RECORDS SUMMARY | 2025-05-29 05:33 | XMS_ITS | Encounter Summary ---
Author Organization [facility] Address 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 Name Role Phone Unavailable Primary Care Provider Unavailabl e Reason for Referral * Nuclear Medicine (Urgent) - Closed Specialty Diagnoses / Procedures Referred By Donna campuzano Referred To Contact Radiology Diagnoses Chest pain, unspecified type Coronary artery disease due to type 2 diabetes mellitus (CMS/HCC) Procedures NM MYOCARD PERF IMAG SPECT Gretchen Wilson DO [address] [address] Phone: tel: fax: [facility] Nuclear Medicine [address] [place] [phone] Phone: tel: fax: Referral ID Status Reason Start Date Expiration Date V isits Requested Visits Authorized [id number] Closed F CTS to Schedule 05/25/2025 06/24/2025 1 1 Reason for Visit * Nuclear Medicine (Urgent) - Closed Specialty Diagnoses / Procedures Referred By Donna campuzano Referred To Contact Radiology Diagnoses Chest pain, unspecified type Coronary artery disease due to type 2 diabetes mellitus (CMS/HCC) Procedures NM MYOCARD PERF IMAG SPECT Gretchen Wilson DO [address] [facility] [address] [place] [address] Phone: tel: fax: [facility] Nuclear Medicine [address] [place] [address] Phone: tel: fax: Referral ID Status Reason Start Date Expiration Date V isits Requested Visits Authorized [id number] Closed SGF CTS to Schedule 05/25/2025 06/24/2025 1 1 Encounter Details Date Type Department Care Team (Latest Contact Info) Description 05/29/2025 5:33 AM CDT - 05/29/2025 11:59 PM CDT Hospital Encounter [facility] Nuclear Medicine [address] [place] [address] Gretchen Michael DO [address] [place] [phone] Arrived Discharge Disposition: Home or Self Care Social History Tobacco Use Types Packs/Day Years Used Date Smoking Tobacco: Some Days Cigarettes Smokeless Tobacco: Never Comments:Has cut down to a h jsesica a pack per week. 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 Use a thin layer on each wound. 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 Max Daily Amount: 60 mg 15 Tablet 02/02/2024 LORazepam (ATIVAN) 0.5 mg tablet Take 0.5 mg by mouth every 6 hours as needed for Anxiety. anxiety OLANZapine (ZyPREXA ZYDIS) 10 mg Tablet, Rapid Dissolve Place 10 mg inside cheek daily at bedtime. amLODIPine (NORVASC) 5 mg tablet Take 1 Tablet (5 mg) by mouth daily. 01/06/2024 hydrALAZINE (APRESOLINE) 25 mg tablet Take 1 Tablet (25 mg) by mouth every 8 hours as needed for Other (See Comment) (for sBP >170 or dBP >100). 01/05/2024 aspirin (ECOTRIN EC) 81 mg Tablet, Delayed Release (E.C.) Take 1 Tablet (81 mg) by mouth daily. 30 Tablet 10/27/2023 12:48 PM PATIENT ACCOUNTING REPRESENTATIVE 10/28/2023 atorvastatin (LIPITOR) 40 mg tablet Take 1 Tablet (40 mg) by mouth daily at bedtime. 30 Tablet 10/27/2023 12:48 PM PATIENT ACCOUNTING REPRESENTATIVE 10/27/2023 clopidogreL (PLAVIX) 75 mg Tablet Take 1 Tablet (75 mg) by mouth daily. 30 Tablet 10/27/2023 12:48 PM PATIENT ACCOUNTING REPRESENTATIVE 10/28/2023 hydrOXYzine HCL (ATARAX) 25 mg tablet Take 1 Tablet (25 mg) by mouth every 8 hours as needed for Anxiety. 15 Tablet 10/27/2023 12:48 PM PATIENT ACCOUNTING REPRESENTATIVE 10/27/2023 polyethylene glycol (MIRALAX) 17 gram Powder in Packet Take 1 Packet (17 Grams) by mouth 2 times daily. 10/27/2023 sennosides-docusa te sodium (SENNA-S) 8.6-50 mg tablet Take 1 Tablet by mouth daily. 30 Tablet 10/27/2023 12:48 PM PATIENT ACCOUNTING REPRESENTATIVE 10/28/2023 naloxone (NARCAN) 4 mg/spray [place], Non-Aerosol EMERGENCY USE ONLY: Administer 1 spray (4 mg) in one nostril one time. May repeat in alternating nostrils every 2-3 min until responsive or EMS arrives. 2 Each 3 10/27/2023 12:48 PM PATIENT ACCOUNTING REPRESENTATIVE 10/27/2023 insulin regular human U-500 concentrated (HumuLIN-R U-500, Conc, Kwikpen) 500 unit/mL (3 mL) pen Inject 70 Units by subcutaneous injection daily. Daily in the AM and 30 units with Dinner. Humulin R U-500 insulin according to the following scale: If glucose before food is / Take 71-80 / -15, 81-90 / -10, 91-100 / -5 101-150 / 70 units with breakfast and 30 units with dinner 151-200 / +5 units, 201-250 / +10, 251-300 / +15, 301-350 / +20, 351-400 / +25, More than 400 / +30 units 9 mL 3 10/27/2023 prazosin (MINIPRESS) 2 mg capsule Take 2 mg by mouth 2 times daily. rOPINIRole (REQUIP) 2 mg Tablet Take 2 mg by mouth 2 times daily. pregabalin (LYRICA) 300 mg Capsule Take 300 mg by mouth 2 times daily. promethazine (PHENERGAN) 25 mg tablet Take 25 mg by mouth every 12 hours. pantoprazole (PROTONIX) 40 mg Tablet, Delayed Release (E.C.) Take 40 mg by mouth daily at bedtime. tiZANidine (ZANAFLEX) 4 mg Tablet Take 4 mg by mouth 3 times daily. citalopram (CeleXA) 40 mg tablet Take 40 mg by mouth daily at bedtime. DULoxetine (CYMBALTA) 20 mg Capsule, Delayed Release(E.C.) Take 20 mg by mouth daily. documented as of this encounter Plan of Treatment Not on file documented as of this encounter Procedures Procedure Name Priority Date/Time Associated Diagnosis Comments NM MYOCARD PERF IMAG SPECT MULT Stat 05/29/2025 12:44 PM CDT Chest pain, unspecified type Coronary artery disease due to type 2 diabetes mellitus (CMS/HCC) documented in this encounter Results * (ABNORMAL) NM MYOCARD PERF IMAG SPECT MULT (05/29/2025 12:44 PM CDT) EJECTION FRACTION 70(A) 50 - 65 % [...] function. The LVEF is 70%. us Gretchen Michael DO DE ORDERABLES Final Re sult INTERFACE SYSTEM Refer to clinic/hospital department documented in this encounter Visit Diagnoses Diagnosis Chest pain, unspecified type Coronary artery disease due to type 2 diabetes mellitus (CMS/[facility]ER[facility]) documented in this encounter Administered Medications Inactive Administered Medications - up to 3 most recent administrations Medication Order MAR Action Action Date Dose Rate Site sodium chloride flush injection 20 mL 20 mL, IV, EVERY 5 MINUTES PRN, Starting on Thu05/29/25 at 1009, Until Thu05/30/25 at 0228, flush, Routine Given 05/29/2025 10:26 AM CDT 20 mL documented in this encounter Additional Health Concerns Assessment Noted Time PHQ-9 Depression Total Score: 6 02/01/20 24 7:00 PM PATIENT ACCOUNTING REPRESENTATIVE documented as of this encounter
--- OUTSIDE RECORDS SUMMARY | 2025-05-29 09:39 | XMS_ITS | Encounter Summary ---
Author Organization [facility] Address [address] [place] [address] Care Team Providers Care Bag Machine Helper Name Role Phone Unavailable Primary Care Provider Unavailabl e Reason for Referral * Nuclear Medicine (Urgent) - Closed Specialty Diagnoses / Procedures Referred By Donna campuzano Referred To Contact Radiology Diagnoses Chest pain, unspecified type Coronary artery disease due to type 2 diabetes mellitus (CMS/HCC) Procedures NM PHARMACOLOGICAL STRESS TEST Gretchen Michael DO [address] [address] Phone: tel: fax: [facility] Nuclear [address] [address] Phone: tel: fax: Referral ID Status Reason Start Date Expiration Date V isits Requested Visits Authorized [id number] Closed F CTS to Schedule 05/24/2025 06/24/2026 1 1 Reason for Visit * Nuclear Medicine (Urgent) - Closed Specialty Diagnoses / Procedures Referred By Donna campuzano Referred To Contact Radiology Diagnoses Chest pain, unspecified type Coronary artery disease due to type 2 diabetes mellitus (CMS/HCC) Procedures NM PHARMACOLOGICAL STRESS TEST Gretchen Michael DO [address] [address] Phone: tel: fax: [facility] Nuclear Medicine [address] [place] [address] Phone: tel: fax: Referral ID Status Reason Start Date Expiration Date V isits Requested Visits Authorized [id number] Closed F CTS to Schedule 05/24/2025 06/24/2026 1 1 Encounter Details Date Type Department Care Team (Latest Contact Info) Description 05/29/2025 9:39 AM CDT - 05/29/2025 11:59 PM CDT Hospital Encounter [facility] Nuclear Medicine [address] [place] [phone] Gretchen Michael DO [address] [place] [phone] Arrived Discharge Disposition: Home or Self [...] on file Legal Sex Female 9:00 AM JACQUARD CARD LACER Gender Identity Not on file Sexual Orientation [...] mouth daily. 30 Tablet 10/27/2023 12:48 PM JACQUARD CARD LACER 10/28/2023 atorvastatin (LIPITOR) 40 mg tablet Take 1 Tablet (40 mg) by mouth daily at bedtime. 30 Tablet 10/27/2023 12:48 PM JACQUARD CARD LACER 10/27/2023 clopidogreL (PLAVIX) 75 mg Tablet Take 1 Tablet (75 mg) by mouth daily. 30 Tablet 10/27/2023 12:48 PM JACQUARD CARD LACER 10/28/2023 hydrOXYzine HCL (ATARAX) 25 mg tablet Take 1 Tablet (25 mg) by mouth every 8 hours as needed for Anxiety. 15 Tablet 10/27/2023 12:48 PM JACQUARD CARD LACER 10/27/2023 polyethylene glycol (MIRALAX) 17 gram Powder in Packet Take 1 Packet (17 Grams) by mouth 2 times daily. 10/27/2023 sennosides-docusa te sodium (SENNA-S) 8.6-50 mg tablet Take 1 Tablet by mouth daily. 30 Tablet 10/27/2023 12:48 PM JACQUARD CARD LACER 10/28/2023 naloxone (NARCAN) 4 mg/spray [place], Non-Aerosol EMERGENCY USE ONLY: Administer 1 spray (4 mg) in one nostril one time. May repeat in alternating nostrils every 2-3 min until responsive or EMS arrives. 2 Each 3 10/27/2023 12:48 PM JACQUARD CARD LACER 10/27/2023 insulin regular human U-500 concentrated (HumuLIN-R [...] Name Priority Date/Time Associated Diagnosis Comments NM PHARMACOLOGICAL STRESS TEST Stat 05/29/2025 11:37 AM CDT Chest pain, unspecified type Coronary artery disease due to type 2 diabetes mellitus ([facility]) documented in this encounter Results * NM PHARMACOLOGICAL STRESS TEST (05/29/2025 11:37 [...] the study is reported separately. us Gretchen Michael DO NM ORDERABLES Final Re sult INTERFACE SYSTEM Refer to clinic/hospital department documented in this encounter Visit Diagnoses Diagnosis Chest pain, unspecified type Coronary artery disease due to type 2 diabetes mellitus (CMS/HCC) documented in this encounter Administered Medications Inactive Administered Medications - up to 3 most recent administrations Medication Order MAR Action Action Date Dose Rate Site regadenoson (LEXISCAN) 0.4 mg/5 mL injection 0.4 mg, IV, INTRA-PROCEDURE ONCE, 1 dose, Starting on Thu05/29/25 at 1009, Until Thu05/29/25 at 1136, Routine Given 05/29/2025 11:36 AM CDT 0.4 mg sodium chloride flush injection 20 mL 20 mL, IV, EVERY 5 MINUTES PRN, Starting on Thu05/29/25 at 1009, Until Thu05/30/25 at 0228, flush, Routine Given 05/29/2025 11:36 AM CDT 20 mL documented in this encounter Additional Health Concerns Assessment Noted Time PHQ-9 Depression Total Score: 6 02/01/20 24 7:00 PM JACQUARD CARD LACER documented as of this encounter
[2025-05-31 16:05] VITALS: BP 129/73; PULSE 114; RESP 18; TEMP 37.4; O2SAT 95; BMI 36.0
--- OUTSIDE RECORDS SUMMARY | 2025-05-31 16:05 | XMS_ITS | Clinical Summary ---
Author Organization [facility] Address [address] [facility] Attn: Epic [place] [address] Care Team Providers Care Protective Signal Repairer Helper Name Role Phone Unavailable Primary Care Provider Unavailabl e Allergies Active Allergy Reactions Criticality Noted Date Comments Acetaminophen Other (See Comments) Medium 12/17/2023 Makes legs jerk more, restless legs Adhesive Unknown 05/16/2025 Cephalexin Shortness of Breath/Wheezing High 10/20/2023 Ibuprofen Other (See Comments) High 12/17/2023 Makes Bun Levels go up. Hurts ulcer Ketorolac Other (See Comments) 12/26/2023 Difficulty breathing Morphine Hives,Shortness of Breath/Wheezing High 10/20/2023 Penicillins Unknown 05/16/2025 Medications prazosin (MINIPRESS) 2 mg capsule Take 2 mg by mouth 2 times daily. Active rOPINIRole (REQUIP) 2 mg Tablet Take 2 mg by mouth 2 times daily. Active pregabalin (LYRICA) 300 mg Capsule Take 300 mg by mouth 2 times daily. Active promethazine (PHENERGAN) 25 mg tablet Take 25 mg by mouth every 12 hours. Active pantoprazole (PROTONIX) 40 mg Tablet, Delayed Release (E.C.) Take 40 mg by mouth daily at bedtime. Active tiZANidine (ZANAFLEX) 4 mg Tablet Take 4 mg by mouth 3 times daily. Active citalopram (CeleXA) 40 mg tablet Take 40 mg by mouth daily at bedtime. Active DULoxetine (CYMBALTA) 20 mg Capsule, Delayed Release(E.C.) Take 20 mg by mouth daily. Active aspirin (ECOTRIN EC) 81 mg Tablet, Delayed Release (E.C.) Take 1 Tablet (81 mg) by mouth daily. 30 Tablet 10/27/2023 12:48 PM MANAGER HEAVY DUTY 3 Active atorvastatin (LIPITOR) 40 mg tablet Take 1 Tablet (40 mg) by mouth daily at bedtime. 30 Tablet 10/27/2023 12:48 PM MANAGER HEAVY DUTY 3 Active clopidogreL (PLAVIX) 75 mg Tablet Take 1 Tablet (75 mg) by mouth daily. 30 Tablet 10/27/2023 12:48 PM MANAGER HEAVY DUTY 3 Active hydrOXYzine HCL (ATARAX) 25 mg tablet Take 1 Tablet (25 mg) by mouth every 8 hours as needed for Anxiety. 15 Tablet 10/27/2023 12:48 PM MANAGER HEAVY DUTY 3 Active polyethylene glycol (MIRALAX) 17 gram Powder in Packet Take 1 Packet (17 Grams) by mouth 2 times daily. 3 Active sennosides-docus ate sodium (SENNA-S) 8.6-50 mg tablet Take 1 Tablet by mouth daily. 30 Tablet 10/27/2023 12:48 PM MANAGER HEAVY DUTY 3 Active naloxone (NARCAN) 4 mg/spray Council, Non-Aerosol EMERGENCY USE ONLY: Administer 1 spray (4 mg) in one nostril one time. May repeat in alternating nostrils every 2-3 min until responsive or EMS arrives. 2 Each 3 10/27/2023 12:48 PM MANAGER HEAVY DUTY 3 Active insulin regular human U-500 concentrated (HumuLIN-R U-500, Conc, Elizabethpen) 500 unit/mL (3 mL) pen Inject 70 [...] 400 / +30 units 9 mL 3 3 Active amLODIPine (NORVASC) 5 mg tablet Take 1 Tablet (5 mg) by mouth daily. 4 Active hydrALAZINE (APRESOLINE) 25 mg tablet Take 1 Tablet (25 mg) by mouth every 8 hours as needed for Other (See Comment) (for sBP >170 or dBP >100). 4 Active OLANZapine (ZyPREXA ZYDIS) 10 mg Tablet, Rapid Dissolve Place 10 mg inside cheek daily at bedtime. Active LORazepam (ATIVAN) 0.5 mg tablet Take 0.5 mg by mouth every 6 hours as needed for Anxiety. anxiety Active collagenase (SANTYL) 250 unit/gram Ointment Apply to affected area 2 times daily. Use a thin layer on each wound. 30 Gram 1 4 Active oxyCODONE (ROXICODONE) 15 mg tabletIndication s:Below-knee amputation of left lower extremity with complication, subsequent encounter Take 1 Tablet (15 mg) by mouth every 6 hours as needed for Pain, Severe. Max Daily Amount: 60 mg 15 Tablet 4 Active Additional Information Patient taking differently: 10 mgOral EVERY 6 HOURS PRN, Pain, Severe, Reported on 05/16/2025 Active Problems Problem Noted Date Diagnosed Date History of stroke 06/03/2024 Dehiscence of amputation stump of right lower ex tremity 01/25/2024 S/P BKA (below knee amputation), right 4 Tobacco abuse 01/25/2024 Amputation of lower extremit y below knee with complication, right, sequela 01/25/2024 PTSD (post-traumatic stress disorder) 12/31/2023 Generalized anxiety disorder 12/31/2023 Major depressive disorder in remission 4 Protein-calorie malnutrition, moderate 4 Opioid contract exists 12/02/2023 Polypharmacy 12/02/2023 NSAID induced gastritis 12/02/2023 Lumbar post-laminectomy syndrome 12/02/2023 FCI (current) use of n on-steroidal anti-inflammatories (nsaid) 12/02/2023 HTN, goal below 130/80 12/02/2023 Dyslipidemia, goal LDL below 70 12/02/2023 Hyperglycemia 12/02/2023 DM type 2, goal HbA1c < 7% 12/02/2023 Gastroparesis due to DM 12/02/2023 Spinal stenosis, cervical region 12/02/2023 Fusion of spine of cervical region 12/02/2023 Diabetic neuropathy 12/02/2023 Coronary artery disease due to type 2 diabetes m ellitus 12/02/2023 Constipation 12/02/2023 Uncontrolled type 2 diabetes mellitus with hyper glycemia 12/02/2023 Severe obesity (BMI 35.0-39.9) with comorbidity 12/02/2023 Peripheral arterial disease with history of revascularization 12/02/2023 Surgical wound infection 12/02/2023 PAD (peripheral artery disease) 10/20/2023 Resolved Problems Problem Noted Date Diagnosed Date Resolved Date Cellulitis of right foot 12/23/202311/2023 Acute osteomyelitis of metat arsal bone of right foot 12/22/2023 06/03/2024 Diabetic ulcer of right midf oot associated with diabetes mellitus due to underlying condition, with fat layer exposed 12/02/20232023 Chronic foot ulcer 12/02/2023 Status post laparoscopic cholecystectomy 12/02/2023 12/02/2023 Pain in left foot 12/02/2023 12/02/2023 Pain in left ankle 12/02/2023 Acute pain of left knee 12/02/202301/2024 Osteomyelitis 12/02/2023 06/03/2024 Nausea and vomiting 12/02/2023 12/02/19 24 Medial meniscus tear 12/02/2023 024 Encounter for long-term use of opiate analgesic 12/02/2023 12/02/2023 Helicobacter positive gastritis 12/02/2023 12/02/2023 Flank pain 12/02/2023 12/02/2023 Elevated alkaline phosphatase level 12/02/2023 12/02/2023 Cerebrovascular accident 12/02/202301/2024 Cellulitis of thumb, left 12/02/2023 Arthritis of hand, left 12/02/202301/2024 Paronychia of finger 12/02/2023 024 Acquired absence of other right toe(s) 12/02/2023 06/03/2024 Overview (12/02/2023): Right toes amputated by Dr. Tez Andrews, DPM Hammer toe of right foot 10/24/2023 Eschar of toe 10/21/2023 12/02/2023 Gangrene of toe of right foot 10/20/2023 11/16/2023 Type 2 diabetes mellitus wit h diabetic peripheral angiopathy and gangrene, with long-term current use of insulin 10/20/2023 024 Encounters Date Type Department Care Team Description 05/29/2025 9:39 AM CDT - 05/29/2025 11:59 PM CDT Hospital Encounter [facility] [place] [phone] Gretchen Michael DO Arrived Discharge Disposition: Home or Self Care 05/29/2025 5:33 AM CDT - 05/29/2025 11:59 PM CDT Hospital Encounter [facility] [address] [place] [phone] Gretchen Michael DO Arrived Discharge Disposition: Home or Self Care 05/26/2025 Telephone [facility] [address] [place] [phone] Rina Mcdonough RN NMST Instructions 05/26/2025 Telephone [facility] [address] [place] [phone] Rina Mcdonough, RN NMST Instructions 05/24/2025 11:00 AM CDT Telephone Check Up [facility] [address] [phone] Gretchen Michael DO Chest pain, unspecified type (Primary Dx); Coronary artery disease due to type 2 diabetes mellitus ([facility]/HCC); Calcific aortic stenosis; Femoral artery occlusion 05/23/2025 Telephone [facility] [phone] Gretchen Michael DO Question; Results 05/23/2025 Orders Only [facility] [address] [phone] Rodrigo Anguiano MD 05/22/2025 Telephone [facility] [address] [phone] Rodrigo Anguiano MD Results 05/17/2025 Telephone [facility] [address] [phone] Gretchen Michael DO Question 05/16/2025 3:30 PM CDT Office Visit [facility] [address] [phone] Gretchen Michael DO Peripheral arterial disease with history of revascularization (Primary Dx); Encounter for laboratory test; Open wound of toe, initial encounter 05/16/2025 2:30 PM CDT Ancillary Procedure [facility] [phone] Gretchen Michael DO Peripheral arterial disease with history of revascularization; S/P BKA (below knee amputation), right (CMS/HCC); PAD (peripheral artery disease) 05/12/2025 Telephone [facility] [address] [phone] Gretchen Michael DO Appointment Verification 04/25/2025 External Device Data STL ABSTRACTION Provider, Abstract 04/14/2025 Telephone [facility] [address] [phone] Gretchen Michael DO Needs Appointment 04/04/2025 Orders Only [facility] [address] [phone] Gretchen Michael DO Peripheral arterial disease with history of revascularization (Primary Dx); S/P BKA (below knee amputation), right ([facility]/HCC); PAD (peripheral artery disease) 04/04/2025 Telephone [facility] [place] [address] [place] [address] Rodrigo Anguiano MD Follow Up 04/04/2025 Abstract [facility] [place] [address] [facility] [address] [place] [address] Provider, Abstract from Last 3 Months Social History Tobacco Use Types Packs/Day Years Used Date Smoking Tobacco: Some Days Cigarettes Smokeless Tobacco: Never Tobacco Cessation:Ready to Q uit: Not Asked; Counseling Given: Not Answered Comments:Has cut down to a half a pack per week. Around a lot [...] on file Legal Sex Female 9:00 AM MANAGER HEAVY DUTY Gender Identity Not on file Sexual Orientation Not on file Last Filed Vital Signs Vital Sign Reading Time Taken Comments Blood Pressure 156/82 05/16/2025 3:22 PM CDT Pulse 96 05/16/2025 3:22 PM CDT Temperature 35.8 C (96.5 F) 02/02/2024 7:00 AM MANAGER HEAVY DUTY Respiratory Rate 18 02/02/2024 7:00 AM MANAGER HEAVY DUTY Oxygen Saturation 96% 05/16/2025 3:22 PM CDT Inhaled Oxygen Concentration - - Weight 109.8 kg (242 lb) 05/16/2025 3:22 PM CDT Height 170.2 cm (5' 7 ) 05/16/2025 3:22 PM CDT Body Mass Index 37.9 05/16/2025 3:22 PM CDT Plan of Treatment Health Maintenance Due Date Last Done Comments DIABETES ANNUAL FOOT EXAM 1987 DIABETES ANNUAL RETINAL EXAM 1987 DIABETES MICROALBUMIN ANNUAL SCREEN 1987 LDL CHOLESTEROL ANNUAL 1987 DTAP/TDAP/TD VACCINES (1 - Tdap) 1988 HEPATITIS B VACCINES (1 of 3 - 19+ 3-dose series) 1988 HPV/Cotest (21-29) 1990 CERVICAL CANCER SCREENING 1999 HPV/Cotest (30-65) 1999 PAP SMEAR 1999 BREAST CANCER SCREENING 2009 COLORECTAL SCREENING 2014 Colorectal Cancer Screening 2014 FIT-DNA Q 3 years 2014 FIT/FOBT Q 1 year 2014 Flex Sig/CT Colonography Q 5 years 2014 ZOSTER VACCINE (1 of 2) 2019 DIABETES HBA1C Q 6 MONTHS 07/26/2024 01/26/2024, INFLUENZA VACCINE (#1) 2025 Medical Devices Implanted Type Area Trouble Dispatcher Device Identifier Shelf Expiration Date Model / Serial / Lot Sealant [employer] [place] Plant Supervisor 6-7fr [id number] - [id number] Implanted:Qty : 1 on 10/21/2023 by Tomer Stringer MD at [facility] Closure Device Left: Groin CORDIS [id number] 05/29/2025 [id number] / / [id number] Stent Vasc Sandra [id number] 10 - [id number] Implanted:Qty : 1 on 10/21/2023 by Tomer Stringer MD at [facility] Stent Right: Superficial Femoral Artery [employer] 01/29/2025 [id number] / / [id number] Stent Vasc Sandra [id number] 10 - [id number] Implanted:Qty : 1 on 10/21/2023 by Tomer Stringer MD at [facility] Stent Right: Superficial Femoral Artery [employer] 01/15/2025 [id number] / / [id number] Procedures Procedure Name Priority Date/Time Associated Diagnosis Comments NM MYOCARD PERF IMAG SPECT MULT Stat 05/29/2025 12:44 PM CDT Chest pain, unspecified type Coronary artery disease due to type 2 diabetes mellitus (CMS/HCC) NM PHARMACOLOGICAL STRESS TEST Stat 05/29/2025 11:37 AM CDT Chest pain, unspecified type Coronary artery disease due to type 2 diabetes mellitus (CMS/HCC) [place] DUP/COPY PATIENT'S RECORDS Routine 05/23/2025 12:58 PM CDT HEMOGLOBIN A1C Routine 01/26/2024 9:15 AM MANAGER HEAVY DUTY from Last 3 Months or Most Recently Relevant to Health Maintenance Results * (ABNORMAL) NM MYOCARD PERF IMAG [...] LVEF is 70%. us Gretchen Michael DO NM ORDERABLES Final [...] Michael DO NM ORDERABLES Final Re sult Performing Organization Address [facility] de Phone Number INTERFACE SYSTEM Refer to clinic/hospital department * [place] DUP/COPY PATIENT'S RECORDS (05/23/2025 12:58 PM CDT) us Rodrigo Anguiano MD [place] - DENTAL Final Result * (ABNORMAL) HEMOGLOBIN A1C (01/26/2024 9:15 AM MANAGER HEAVY DUTY) HEMOGLOBIN A1C 9.7(H) <=5.6 % 01/27/2024 10:33 AM [facility] [employer] [facility] EST. AVG GLUCOSE, A1C 232 mg/dL 01/27/2024 10:33 AM [facility] Blood Venipuncture / Unknown 01/26/2024 9:15 AM MANAGER HEAVY DUTY 01/26/2024 9:29 AM MANAGER HEAVY DUTY Narrative [facility] - 01/27/2024 10:33 AM MANAGER HEAVY DUTY HGB A1C INTERPRETATION NORMAL: <5.7% PRE-DIABETES: 5.7 - 6.4% DIABETES: 6.5% OR GREATER Pam WELDON CHEMISTRY ORDERABLES Final R esult Performing Organization Address City/[facility] Co de Phone Number [facility] CLIA # [id number] [address] [place] [id number] from Last 3 Months or Most Recently Relevant to Health Maintenance Insurance [place]ICAID [place] RX INFOCROSSING Medicaid RX [employer] PL[employer] (INTERNAL) [facility] Internal Plans Advance Directives For more information, please contact: [phone] * Full Code (Latest Code Status on File) Date Activated Date Inactivated Comments 01/25/2024 7:10 PM 02/02/2024 2:46 PM * NO CPR (In Event of Cardiopulmonary Arrest) Date Activated Date Inactivated Comments 12/26/2023 7:21 AM 01/05/2024 3:08 PM Question Answer Comments Mechanical Ventilation (for respiratory distress) - Invasive (i.e. intubation): No Mechanical Ventilation (for respiratory distress) - Non-Invasive (i.e. BiPAP, CPAP): No * NO CPR (In Event of Cardiopulmonary Arrest) Date Activated Date Inactivated Comments 12/23/2023 10:43 AM 12/26/2023 7:21 AM Question Answer Comments Mechanical Ventilation (for respiratory distress) - Invasive (i.e. intubation): No Mechanical Ventilation (for respiratory distress) - Non-Invasive (i.e. BiPAP, CPAP): Yes * Full Code Date Activated Date Inactivated Comments 12/23/2023 9:04 AM 12/23/2023 10:43 AM * NO CPR (In Event of Cardiopulmonary Arrest) Date Activated Date Inactivated Comments 10/20/2023 5:31 PM 10/27/2023 2:34 PM Question Answer Comments Mechanical Ventilation (for respiratory distress) - Invasive (i.e. intubation): No Mechanical Ventilation (for respiratory distress) - Non-Invasive (i.e. BiPAP, CPAP): Yes
--- OUTSIDE RECORDS SUMMARY | 2025-05-31 16:05 | XMS_ITS | Clinical Summary ---
Author Organization [facility] Address [address] [place] [address] Care Team Providers Care Receiving Specialist Name Role Phone Unavailable Primary Care Provider Unavailabl e Social History Tobacco Use Types Packs/Day Years Used Date Smoking Tobacco: Never Assessed Comments Unknown Sex and Gender Information Value Date Recorded Sex Assigned at Not on file Legal Sex Female 2:53 AM FIELD SUPERVISOR Gender Identity Not on file Sexual Orientation Not on file Plan of Treatment Health Maintenance Due Date Last Done Comments DTAP/TDAP/TD VACCINES (1 - Tdap) 1988 HEPATITIS B VACCINES (1 of 3 - 19+ 3-dose series) 02/1988 BREAST CANCER SCREENING 2009 COLORECTAL SCREENING 2014 Colorectal Cancer Screening 2014 FIT-DNA Q 3 years 2014 FIT/FOBT Q 1 year 2014 Flex Sig/CT Colonography Q 5 years 2014 ZOSTER VACCINE (1 of 2) 2019 INFLUENZA VACCINE (#1) 2025 Insurance [facility] [employer] [facility] SFD PPO
--- OUTSIDE RECORDS SUMMARY | 2025-05-31 16:05 | XMS_ITS | Encounter Summary ---
Author Organization [facility] Address [address] Attn: Epic [place] [phone] Care Team Providers Care Jewel Diameter Gauger Name Role Phone Unavailable Primary Care Provider Unavailabl e Encounter Details Date Type Department Care Team (Late st Contact Info) Description 06/14/2007 Outpatient Historical Abraham Bond MD NO ADDRESS ON FILE Social History Tobacco Use Types Packs/Day Years Used Date Smoking Tobacco: Never Assessed Comments Unknown Sex and Gender Information Value Date Recorded Sex Assigned at Not on file Legal Sex Female 2:53 AM AUTOMOTIVE PARTS PERSON Gender Identity Not on file Sexual Orientation Not on file documented as of this encounter Plan of Treatment Not on file documented as of this encounter Procedures Procedure Name Priority Date/Time Associated Diagnosis Comments LIPID PANEL Routine 06/14/2007 8:47 AM CDT documented in this encounter Results * (ABNORMAL) LIPID PANEL (06/14/2007 8:47 AM CDT) CHOLESTEROL 211(H) 75 - 200 mg/dL INTERFACE SYSTEM HDL 50 40 - 60 mg/dL INTERFACE SYSTEM TRIGLYCERIDE 327(H) 0 - 168 mg/dL INTERFACE SYSTEM GLUCOSE 102 70 - 110 mg/dL INTERFACE SYSTEM CALCULATED LDL CHOLESTEROL 96 0 - 130 mg/dL INTERFACE SYSTEM CALCULATED TOTAL CHOLESTEROL TO HDL RATIO 4.22 3.27 - 4.44 INTERFACE SYSTEM 06/14/2007 8:47 AM CDT us Abraham Bond MD CHEMISTRY ORDERABLES Edited INTERFACE SYSTEM Refer to clinic/hospital department documented in this encounter Visit Diagnoses Not on filedocumented in this encounter
--- OUTSIDE RECORDS SUMMARY | 2025-05-31 16:06 | XMS_ITS | Encounter Summary ---
Author Organization [facility] Address 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 Gender Identity Not on file Sexual Orientation Not on file documented as of this encounter Plan of Treatment Not on file documented as of this encounter Procedures Procedure Name Priority Date/Time Associated Diagnosis Comments NE DUP/COPY PATIENT'S RECORDS Routine 05/23/2025 12:58 PM CDT documented in this encounter Results * NE DUP/COPY PATIENT'S RECORDS (05/23/2025 12:58 PM CDT) Rodrigo Anguiano MD [place] - DENTAL Final Result documented in this encounter Visit Diagnoses Not on filedocumented in this encounter Additional Health Concerns Assessment Noted Time PHQ-9 Depression Total Score: 6 02/01/20 24 7:00 PM VETERINARY LABORATORY DIAGNOSTICIAN documented as of this encounter
--- OUTSIDE RECORDS SUMMARY | 2025-05-31 16:06 | XMS_ITS | Encounter Summary ---
Author Organization [facility] Address [address] [place] [address] Care Team Providers Care Chief Clinical Officer Name Role Phone Unavailable Primary Care Provider Unavailabl e Encounter Details Date Type Department Care Team (Late st Contact Info) Description 10/10/2002 Outpatient Historical [facility] OBANNANAna Floresnn Fabien [address] [place] [address] Osman Pedraza MD [address] [phone] SURGERY FOLLOWUP, UNSPEC (Primary Dx) Social History Tobacco Use Types Packs/Day Years Used Date Smoking Tobacco: Never Assessed Comments Unknown Sex and Gender Information Value Date Recorded Sex Assigned at Not on file Legal Sex Female 2:53 AM VEHICLE BODY 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
--- OUTSIDE RECORDS SUMMARY | 2025-05-31 16:06 | XMS_ITS | Encounter Summary ---
Author Organization [facility] Address [address] [facility] Attn: [place] [address] Care Team Providers Care Set Up Person Name Role Phone Unavailable Primary Care Provider Unavailabl e Encounter Details Date Type Department Care Team (Late st Contact Info) Description 08/16/2002 Outpatient Historical Osman Pedraza MD [address] [address] Social History Tobacco Use Types Packs/Day Years Used Date Smoking Tobacco: Never Assessed Comments Unknown Sex and Gender Information Value Date Recorded Sex Assigned at Not on file Legal Sex Female 2:53 AM GENERAL ACTIVITIES THERAPIST Gender Identity Not on file Sexual Orientation Not on file documented as of this encounter Plan of Treatment Not on file documented as of this encounter Visit Diagnoses Not on filedocumented in this encounter
--- OUTSIDE RECORDS SUMMARY | 2025-05-31 16:06 | XMS_ITS | Encounter Summary ---
Author Organization [facility] Address [address] [place] [address] Care Team Providers Care Import Specialist Name Role Phone Unavailable Primary Care Provider Unavailabl e Encounter Details Date Type Department Care Team (Latest Contact Info) Description 08/23/2002 Outpatient Historical [facility] Gen Spec 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
--- OUTSIDE RECORDS SUMMARY | 2025-05-31 16:06 | XMS_ITS | Encounter Summary ---
Author Organization [facility] Address [address] [place] [address] Care Team Providers Care Enrollment Clerk Name Role Phone Unavailable Primary Care Provider Unavailabl e Reason for Visit * Reason Onset Date Comments Question 05/23/2025 Results 05/23/2025 Encounter Details Date Type Department Care Team (Late st Contact Info) Description 05/23/2025 Telephone [facility] [place] [address] [place] [address] Gretchen Michael DO [address] [place] [address] Question; Results Social History Tobacco Use Types Packs/Day Years [...] on file Legal Sex Female 9:00 AM 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 PT states her left leg is burning and feels like a water balloon. PT states she is concerned with clotting. Please call. * Telephone Encounter - Nikki De La Cruz RN - 05/25/2025 3:45 PM CDT Spoke with Analia and offered her a stress test appointment at 10am Thursday, 6.30.25, and [facility]. Educated her on the prep rules for this regarding what was includedin the documented stress test appointment information. Pt verbalized understanding and in agreementwith the plan.for Thursday. * Telephone Encounter - Cynthia Jordan - 05/25/2025 3:06 PM CDT PT states she was told she would need surgery and no one has called to schedule it. PT states she spoke with Dr. Michael 05/25/2025. PT states she is nervous and would like a POC for moving forward. Please call * Telephone Encounter - Frank Nicole - 05/23/2025 1:49 PM CDT Outside provider called to make sure we received external imaging report. I informed them that we have. documented in this encounter Plan of Treatment Not on file documented as of this encounter Visit Diagnoses Not on filedocumented in this encounter Additional Health Concerns Assessment Noted Time PHQ-9 Depression Total Score: 6 02/01/20 24 7:00 PM CLOTH BLEACHING RANGE OPERATOR CHIEF documented as of this encounter
--- OUTSIDE RECORDS SUMMARY | 2025-05-31 16:06 | XMS_ITS | Encounter Summary ---
Author Organization [facility] Address [address] [place] [address] Care Team Providers Care Winding Rack Operator Name Role Phone Unavailable Primary Care Provider Unavailabl e Encounter Details Date Type Department Care Team (Late st Contact Info) Description 08/15/2002 Outpatient Historical [facility] Nithin Floresnn [place] [address] [place] [address] Osman Pedraza MD [address] [id number] Excessive menstruation (Primary Dx); DYSPAREUNIA; HYPERTROPHY OF UTERUS; SCREENING MAL NEOP-CERVIX Social History Tobacco Use Types Packs/Day Years Used Date Smoking Tobacco: Never Assessed Comments Unknown Sex and Gender Information Value Date Recorded Sex Assigned at Not on file Legal Sex Female 2:53 AM RELIGIOUS ACTIVITIES DIRECTOR Gender Identity Not on file Sexual Orientation Not on file documented as of this encounter Plan of Treatment Not on file documented as of this encounter Visit Diagnoses Diagnosis Excessive menstruation- Primary Excessive or frequent menstruation Dyspareunia Hypertrophy of uterus Screening for malignant neoplasm of the cervix documented in this encounter
--- OUTSIDE RECORDS SUMMARY | 2025-05-31 16:06 | XMS_ITS | Encounter Summary ---
Author Organization [facility] Address [address] [place] [address] Care Team Providers Care Bush And Vine Farmer Fruit Crops Name Role Phone Unavailable Primary Care Provider Unavailabl e Encounter Details Date Type Department Care Team (Late st Contact Info) Description 08/15/[address] [facility] [place] [address] [place] [address] Osman Pedraza MD [address] [facility] [address] [place], [place] [address] Excessive menstruation (Primary Dx) Social History Tobacco Use Types Packs/Day Years Used Date Smoking Tobacco: Never Assessed Comments Unknown Sex and Gender Information Value Date Recorded Sex Assigned at Not on file Legal Sex Female 2:53 AM POLICE AIDE Gender Identity Not on file Sexual Orientation Not on file documented as of this encounter Plan of Treatment Not on file documented as of this encounter Visit Diagnoses Diagnosis Excessive menstruation- Primary Excessive or frequent menstruation documented in this encounter
--- OUTSIDE RECORDS SUMMARY | 2025-05-31 16:06 | XMS_ITS | Encounter Summary ---
Author Organization [facility] Address [address] Attn: [place] [address] Care Team Providers Care Car Rental Service Attendant Name Role Phone Unavailable Primary Care Provider Unavailabl e Encounter Details Date Type Department Care Team (Late st Contact Info) Description 09/21/2002 Inpatient Historical Osman Pedraza MD [address] [address] Social History Tobacco Use Types Packs/Day Years Used Date Smoking Tobacco: Never Assessed Comments Unknown Sex and Gender Information Value Date Recorded Sex Assigned at Not on file Legal Sex Female 2:53 AM SAP PLANT 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
--- OUTSIDE RECORDS SUMMARY | 2025-05-31 16:06 | XMS_ITS | Encounter Summary ---
Author Organization [facility] Address [address] [place] [address] Care Team Providers Care Marketing Education Teacher Name Role Phone Unavailable Primary Care Provider Unavailabl e Reason for Visit * Reason Onset Date Comments NMST Instructions 05/26/2025 Encounter Details Date Type Department Care Team (Late st Contact Info) Description 05/26/2025 Telephone [facility] Nuclear Medicine [facility] [place] [address] Rina Mcdonough RN NMST Instructions Social History Tobacco Use Types Packs/Day Years Used Date Smoking Tobacco: Some Days Cigarettes Smokeless Tobacco: Never Comments:Has cut down to a h correction a pack per week. 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 Arrive at [facility] 15 minutes before appt time No caffeine products for 24 hours including: soda, coffee, tea, chocolate, decaffeinated products, energy drinks, and migraine medicines. Nothing by mouth for 4 hours prior to test. Wear clothing that would allow and IV to be inserted in the arm, EKG stickers to the chest No metal or metal buttons on shirt. Will be here for test around 3 hours. Patient stated understanding Meds to hold: none Call back number [phone] documented in this encounter Plan of Treatment Not on file documented as of this encounter Visit Diagnoses Not on filedocumented in this encounter Additional Health Concerns Assessment Noted Time PHQ-9 Depression Total Score: 6 02/01/20 24 7:00 PM SALES SUPPORT TECHNICIAN documented as of this encounter
--- OUTSIDE RECORDS SUMMARY | 2025-05-31 16:06 | XMS_ITS | Encounter Summary ---
Author Organization [employer] [facility] Address [address] [place] [address] Care Team Providers Care Ore Fielder Name Role Phone Unavailable Primary Care Provider Unavailabl e Encounter Details Date Type Department Care Team (Latest Contact Info) Description 07/02/1999 Outpatient Historical [facility] Jose Francisco Santiago MD [address] [place] [phone] Depressive disorder, not elsewhere classified (Primary Dx); Esophageal reflux; Obesity, unspecified Social History Tobacco Use Types Packs/Day Years Used Date Smoking Tobacco: Never Assessed Comments Unknown Sex and Gender Information Value Date Recorded Sex Assigned at Not on file Legal Sex Female 2:53 AM DRILL OPERATOR Gender Identity Not on file Sexual Orientation Not on file documented as of this encounter Plan of Treatment Not on file documented as of this encounter Visit Diagnoses Diagnosis Depressive disorder, not elsewhere classified- Primary Esophageal reflux Obesity, unspecified documented in this encounter
--- OUTSIDE RECORDS SUMMARY | 2025-05-31 16:06 | XMS_ITS | Encounter Summary ---
Author Organization [facility] Address [address] [place] [address] Care Team Providers Care Engineer Of System Development Name Role Phone Unavailable Primary Care Provider Unavailabl e Encounter Details Date Type Department Care Team (Latest Contact Info) Description 06/14/1999 Outpatient Historical [facility] Jose Francisco Santiago MD [address] [place] [phone] Esophageal reflux (Primary Dx); Anxiety state, unspecified Social History Tobacco Use Types Packs/Day Years Used Date Smoking Tobacco: Never Assessed Comments Unknown Sex and Gender Information Value Date Recorded Sex Assigned at Not on file Legal Sex Female 2:53 AM REGULATOR MECHANIC Gender Identity Not on file Sexual Orientation Not on file documented as of this encounter Plan of Treatment Not on file documented as of this encounter Visit Diagnoses Diagnosis Esophageal reflux- Primary Anxiety state, unspecified documented in this encounter
--- OUTSIDE RECORDS SUMMARY | 2025-05-31 16:06 | XMS_ITS | Encounter Summary ---
Author Organization [facility] Address [address] [place] [address] Care Team Providers Care Sea Shell Gatherer Name Role Phone Unavailable Primary Care Provider Unavailabl e Encounter Details Date Type Department Care Team (Late st Contact Info) Description 11/14/2002 Outpatient Historical [facility] OBANNANAna Floresnn [place] [address] [place] [address] Osman Pedraza MD [address] [phone] SURGERY FOLLOWUP, UNSPEC (Primary Dx) Social History Tobacco Use Types Packs/Day Years Used Date Smoking Tobacco: Never Assessed Comments Unknown Sex and Gender Information Value Date Recorded Sex Assigned at Not on file Legal Sex Female 2:53 AM OPEN SOAPER TENDER Gender Identity Not on file Sexual Orientation Not on file documented as of this encounter Plan of Treatment Not on file documented as of this encounter Visit Diagnoses Diagnosis Follow-up examination, following unspecified surgery- Primary documented in this encounter
--- OUTSIDE RECORDS SUMMARY | 2025-05-31 16:06 | XMS_ITS | Patient Health Record ---
Author Organization [facility] Address [address] [place] [address] Support Name Relationship Address , Sergei Emergency Contact Unknown Unav ailable Analia Hurst Guarantor Unknown [phone] Care Team Providers Care Book Salesman Name Role Phone Yesica Bailey MD Primary Care Provider Unavailab Carmen Lowery Unavailable [phone] Migration, Provider Unavailable Unavailable Ronny Valentine Unavailable [phone] Gilbert, Hollie Unavailable [phone] Allergies Allergen (clinical drug ingredient) Drug/Non Drug Allergy documented on EMR Reaction Allergy Type Onset Date Status Adhesive Unknown Allergy Active ketorolac Ketorolac Unknown Drug Allergy Active morphine Morphine Unknown Drug Allergy Active Substance with penicillin structure and antibacterial mechanism of action (substance) Penicillins Unknown Drug Allergy Active Results Component Value Reference Range Notes Urine Drug Screen (cup read) - [id number] Reviewed date:05/04/2025 08:24:37 AM Interpretation: Performing Lab: Notes/Report: OPI Pos Urine Confirmation Panel (in strument) - [id number] Reviewed date:05/10/2025 02:50:29 PM Interpretation: Performing Lab: Notes/Report: 6-Acetylmorphine 0 <6 ng/mL This test w as developed and its performance characteristics determined by [facility]. It has not been cleared or approved by the U.S. Food and Drug Administration. 7-Aminoclonazepam 0 <60 ng/mL This test was developed and its performance characteristics determined by [facility]. It has not been cleared or approved by the U.S. Food and Drug Administration. Alprazolam 0 <60 ng/mL This test was d eveloped and its performance characteristics determined by [facility]. It has not been cleared or approved by the U.S. Food and Drug Administration. Amphetamine 0 <75 ng/mL This test was d eveloped and its performance characteristics determined by [facility]. It has not been cleared or approved by the U.S. Food and Drug Administration. aOH-Alprazolam 0 <60 ng/mL This test was developed and its performance characteristics determined by [facility]. It has not been cleared or approved by the U.S. Food and Drug Administration. Buprenorphine 0.0 <7.5 ng/mL This test was developed and its performance characteristics determined by [facility]. It has not been cleared or approved by the U.S. Food and Drug Administration. Norbuprenorphine 0.0 <37.5 ng/mL This test w as developed and its performance characteristics determined by [facility]. It has not been cleared or approved by the U.S. Food and Drug Administration. Carisoprodol 0 <75 ng/mL This test was d eveloped and its performance characteristics determined by [facility]. It has not been cleared or approved by the U.S. Food and Drug Administration. Codeine 0 <75 ng/mL This test was d eveloped and its performance characteristics determined by [facility]. It has not been cleared or approved by the U.S. Food and Drug Administration. EDDP 0 <75 ng/mL This test was d eveloped and its performance characteristics determined by [facility]. It has not been cleared or approved by the U.S. Food and Drug Administration. Fentanyl 0 <6 ng/mL This test was d eveloped and its performance characteristics determined by [facility]. It has not been cleared or approved by the U.S. Food and Drug Administration. Hydrocodone 0 <75 ng/mL This test was d eveloped and its performance characteristics determined by [facility]. It has not been cleared or approved by the U.S. Food and Drug Administration. Hydromorphone 304 <75 ng/mL This test was developed and its performance characteristics determined by [facility]. It has not been cleared or approved by the U.S. Food and Drug Administration. Lorazepam 0 <60 ng/mL This test was d eveloped and its performance characteristics determined by [facility]. It has not been cleared or approved by the U.S. Food and Drug Administration. MDMA 0 <75 ng/mL This test was d eveloped and its performance characteristics determined by [facility]. It has not been cleared or approved by the U.S. Food and Drug Administration. Meperidine 0.0 <37.5 ng/mL This test was d eveloped and its performance characteristics determined by [facility]. It has not been cleared or approved by the U.S. Food and Drug Administration. Meprobamate 0 <75 ng/mL This test was d eveloped and its performance characteristics determined by [facility]. It has not been cleared or approved by the U.S. Food and Drug Administration. Methamphetamine 31 <75 ng/mL This test wa s developed and its performance characteristics determined by [facility]. It has not been cleared or approved by the U.S. Food and Drug Administration. Methadone 0 <75 ng/mL This test was d eveloped and its performance characteristics determined by [facility]. It has not been cleared or approved by the U.S. Food and Drug Administration. Morphine 0 <75 ng/mL This test was d eveloped and its performance characteristics determined by [facility]. It has not been cleared or approved by the U.S. Food and Drug Administration. Nordiazepam 0 <60 ng/mL This test was d eveloped and its performance characteristics determined by [facility]. It has not been cleared or approved by the U.S. Food and Drug Administration. Norfentanyl 0 <6 ng/mL This test was d eveloped and its performance characteristics determined by [facility]. It has not been cleared or approved by the U.S. Food and Drug Administration. Normeperidine 0.0 <37.5 ng/mL This test was developed and its performance characteristics determined by [facility]. It has not been cleared or approved by the U.S. Food and Drug Administration. O-desmethyltramadol 0 <75 ng/mL This aylin t was developed and its performance characteristics determined by [facility]. It has not been cleared or approved by the U.S. Food and Drug Administration. Oxazepam 0 <60 ng/mL This test was d eveloped and its performance characteristics determined by [facility]. It has not been cleared or approved by the U.S. Food and Drug Administration. Oxycodone 0.0 <37.5 ng/mL This test was d eveloped and its performance characteristics determined by [facility]. It has not been cleared or approved by the U.S. Food and Drug Administration. Oxymorphone 0 <75 ng/mL This test was d eveloped and its performance characteristics determined by [facility]. It has not been cleared or approved by the U.S. Food and Drug Administration. Phencyclidine 0.0 <7.5 ng/mL This test was developed and its performance characteristics determined by [facility]. It has not been cleared or approved by the U.S. Food and Drug Administration. Tapentadol 0.0 <37.5 ng/mL This test was d eveloped and its performance characteristics determined by [facility]. It has not been cleared or approved by the U.S. Food and Drug Administration. Temazepam 0 <60 ng/mL This test was d eveloped and its performance characteristics determined by [facility]. It has not been cleared or approved by the U.S. Food and Drug Administration. Tramadol 0 <75 ng/mL This test was d eveloped and its performance characteristics determined by [facility]. It has not been cleared or approved by the U.S. Food and Drug Administration. Norhydrocodone 0 <75 ng/mL This test was developed and its performance characteristics determined by [facility]. It has not been cleared or approved by the U.S. Food and Drug Administration. Noroxycodone 0 <38 ng/mL This test was d eveloped and its performance characteristics determined by [facility]. It has not been cleared or approved by the U.S. Food and Drug Administration. Pregabalin >16125 <225 ng/mL This test was d eveloped and its performance characteristics determined by [facility]. It has not been cleared or approved by the U.S. Food and Drug Administration. Gabapentin 0 <225 ng/mL This test was d eveloped and its performance characteristics determined by [facility]. It has not been cleared or approved by the U.S. Food and Drug Administration. Benzoylecgonine 0.0 <37.5 ng/mL This test wa s developed and its performance characteristics determined by [facility]. It has not been cleared or approved by the U.S. Food and Drug Administration. 4-Hydroxy Xylazine 0 <25 ng/mL This test was developed and its performance characteristics determined by [facility]. It has not been cleared or approved by the U.S. Food and Drug Administration. Tox Results Reviewed date:05/10/2025 02:58:47 PM Interpretation: Performing Lab: Notes/Report: zzzUrine Drug Screen (confir mation by instrument) - [id number] Reviewed date:12/06/2024 01:14:24 PM Interpretation: Performing Lab: Notes/Report: Urine Drug Screen (cup read) - [id number] Reviewed date:01/26/2025 01:29:33 PM Interpretation: Performing Lab: Notes/Report: OPI + Reason For Referral Reason eval treat gait jamar donny and over training Diagnosis 1 Back pain, lumbosacr al (M54.50) Referral Organization [facility] Referring Provider First Name Ronny Referring Provider Last Name Meme Referring Provider Speciality [facility] Referred Provider [facility] Referred Provider Specialty Physical The rapist Referral Priority Routine Medications Medication SIG (Take, Route, Frequency, Duration) Notes Start Date End Date Status Lipitor 40mg *Reorder from [facility] for eRx and Interaction Alerts* Active oxyCODONE HCl 10 MG 1 tablet as needed Orally every 6 hrs for 30 days As needed Do not exceed 4 per day Fill on 06-03-25 05/04/2025 07/03/2025 Active oxyCODONE HCl 10 MG 1 tablet as needed Orally every 6 hrs for 30 days As needed Do not exceed 4 per day Fill on 05-04-25 05/04/2025 06/03/2025 Active Cymbalta *Pick strength-form from [facility] for eRX* Active hydroxyzine HCl 25mg *Reorder fr om [facility] for eRx and Interaction Alerts* Active plavix 75mg *Reorder from [facility] for eRx and Interaction Alerts* Active Promethazine *Reorder from [facility] for eRx and Interaction Alerts* Active Lyrica *Pick strength-form from [facility] for eRX* Active aspirin 81mg *Reorder from [facility] for eRx and Interaction Alerts* Active CeleXA *Pick strength-form from [facility] for eRX* Active Ambien *Pick strength-form from [facility] for eRX* Active Requip *Reorder from [facility] for eRx and Interaction Alerts* Active Amitriptyline *Reorder from [facility] for eRx and Interaction Alerts* Active tizanidine *Reorder from [facility] for eRx and Interaction Alerts* Active Problems Problem Type SNOMED Code ICD Code Onset Dates Problem Status W/U Status Risk Notes Problem Chronic pain syndrome (206734165) Chronic pain syndrome (G89.4) 05/26/20 24 Active confirmed Problem Radiculopathy due to lumbar intervertebral disc disorder (890181721805564) Intervertebral disc disorders with radiculopathy, lumbar region (M51.16) 05/26/20 24 Active confirmed Problem Long-term current use of drug therapy (925854416) Analgesic use (Z79.899) Active confirmed Vital Signs Height-cm 170.18 cm 05/04/2025 Weight-kg 109.77 kg 05/04/2025 Height 67.00 in 05/04/2025 Weight 242 lbs 05/04/2025 BMI 37.9 kg/m2 05/04/2025 Encounters Encounter Location Date Provider Diagnosis [facility] [address] [address] 10/06/2024 Carmen Storey [facility] [address] [address] 06/09/2024 Carmen Storey [facility] [address] [phone] 08/03/2024 Ronny Valentine [facility] [address] [address] 12/01/2024 Hollie Hunt Chronic pain syndrom e G89.4 ; Back pain, lumbosacral M54.50 ; Intervertebral disc disorders with radiculopathy, lumbar region M51.16 and Analgesic use Z79.899 [facility] [place] [address] [place] [phone] 01/26/2025 Carmen Storey Chronic pain syndrom e G89.4 ; Back pain, lumbosacral M54.50 ; Intervertebral disc disorders with radiculopathy, lumbar region M51.16 and Analgesic use Z79.899 [facility] [address] [place] [address] 03/01/2025 Ronny Valentine Chronic pain syndrom e G89.4 ; Back pain, lumbosacral M54.50 ; Intervertebral disc disorders with radiculopathy, lumbar region M51.16 and Analgesic use Z79.899 [facility] [place] [address] [place] [address] 05/04/2025 Carmen Storey Chronic pain syndrom e G89.4 ; Back pain, lumbosacral M54.50 ; Intervertebral disc disorders with radiculopathy, lumbar region M51.16 and Analgesic use Z79.899 Migrated[facility]Facility 0 0 09/24/2024 Provider Migration [facility] 0 0 09/25/2024 Provider Migration [facility] [address] [place] [address] 12/01/2024 Ronny Yonatantatianna [facility] [place] [address] [place] [address] [facility] [place] [address] [place] [phone] 05/04/2025 Ronny Valentine Back pain, lumbosacral M54.50 Assessments Encounter Date Diagnosis (ICD Code) Assessment Notes Treatment Notes Treatment Clinical Notes Section Notes 12/01/2024 Chronic pain syndrome (ICD-10 - G89.4) I had a nice discussion with the patient today regarding her chronic pain complaints. She states that she has noticed more pain over the past few months mostly due to the colder weather but also due to having an infection. She states that she was treated with antibiotics and is doing better. As far as her medication goes, it does continue to provide her some relief so that will be continued for her. She continues to remain compliant with accurate pill counts and consistent drug screens. She will follow-up with us in a couple months to continue to monitor her progress. 12/01/2024 Back pain, lumbosacral (ICD-10 - M54.50) I had a nice discussion with the patient today regarding her chronic pain complaints. She states that she has noticed more pain over the past few months mostly due to the colder weather but also due to having an infection. She states that she was treated with antibiotics and is doing better. As far as her medication goes, it does continue to provide her some relief so that will be continued for her. She continues to remain compliant with accurate pill counts and consistent drug screens. She will follow-up with us in a couple months to continue to monitor her progress. 01/26/2025 Chronic pain syndrome (ICD-10 - G89.4) I had a nice discussion with the patient today regarding her chronic pain complaints. She reports her main pain is in her lower back and her left leg. She states she is struggling as she has been unable to wear her prosthetic on her right leg as it keeps causing wounds. She also has an infection in her left foot and states she may end up losing that leg as well. She states her pain has been increased and she is just having more trouble getting around. Her medication does provide her with some relief so she will continue that at present level. She does contribute some of her increased pain to the colder weather. She will continue her medication at present level and return to clinic in 1 month to monitor for treatment effectiveness and compliance as well as for a visit with Dr. Valentine per the patient request. URINE TESTING TODAY; POINT OF SERVICE Urine drug screening will be performed today to monitor compliance with opioid therapy or to serve as a baseline screen for a patient who may be a candidate for opioid therapy in the future, pending UDS results. We will monitor with in-office testing (rapid testing) today and review the results prior to dispensing prescription, as well. Patient has been made aware of this policy. URINE TESTING TODAY; POINT OF SERVICE Urine drug screening will be performed today to monitor compliance with opioid therapy or to serve as a baseline screen for a patient who may be a candidate for opioid therapy in the future, pending UDS results. We will monitor with in-office testing (rapid testing) today and review the results prior to dispensing prescription, as well. Patient has been made aware of this policy. The patient continues with chronic pain requiring treatment to help restore function and improve quality of life. Risks of opioid therapy as well as interaction of opioids with alcohol, illicit drugs, muscle relaxers, and other sedative medications are reviewed briefly with patient again today. The patient has trialed all other reasonable treatment options and uses the medication to alleviate pain in order to remain active and rest with less pain. No clinically relevant medication side effects are noted. 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 Patient is advised that best long-term goals include increased activity, core strengthening, proper weight management, coping strategies, avoidance of painful triggers, and targeted interventional therapy. We will see the patient for routine follow up in accordance with all clinic policies. We did remind patient today of current guidelines to decrease opioid when possible. We will continue to stress nonopioid treatment. 03/01/2025 Chronic pain syndrome (ICD-10 - G89.4) I had a nice visit with the patient today regarding her chronic pain issues. She denies any new problems or issues and just feels like the pain medication is not working all that well. That being said, she's been on a variety of different pain medications and does not tolerate acetaminophen or Ibuprofen, so this makes other options exceedingly challenging. We discussed things that she can control, specifically her weight and that she needs to work on weight loss if she's going to have any success with utilizing her right lower extremity prosthesis in order to get her left knee replaced. She is going to work on that and we will continue her medications unchanged. We will also order physical therapy although I'm unsure if her insurance will cover this. We will see her back in 2 months and proceed accordingly from there. Refer to physical therapy 05/04/2025 Chronic pain syndrome (ICD-10 - G89.4) I had a nice discussion with the patient today regarding her chronic pain complaints. She states she has been having a pretty hard time lately. She reports she had to go to the hospital last week because both of her legs were very swollen. She states she has osteomyelitis in both legs. She states she now has a PICC line and is on IV antibiotics for 6 weeks. She will keep us updated on this. She denies any other changes since we last seen her any untoward side effects of the medication. She will continue her medication at present level and return to clinic in 2 months to monitor for treatment effectiveness and compliance. The patient continues with chronic pain requiring treatment to help restore function and improve quality of life. Risks of opioid therapy as well as interaction of opioids with alcohol, illicit drugs, muscle relaxers, and other sedative medications are reviewed briefly with patient again today. The patient has trialed all other reasonable treatment options and uses the medication to alleviate pain in order to remain active and rest with less pain. No clinically relevant medication side effects are noted. 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 Patient is advised that best long-term goals include increased activity, core strengthening, proper weight management, coping strategies, avoidance of painful triggers, and targeted interventional therapy. We will see the patient for routine follow up in accordance with all clinic policies. We did remind patient today of current guidelines to decrease opioid when possible. We will continue to stress nonopioid treatment. 05/04/2025 Back pain, lumbosacral (ICD-10 - M54.50) 05/04/2025 Back pain, lumbosacral (ICD-10 - M54.50) 03/01/2025 Back pain, lumbosacral (ICD-10 - M54.50) 01/26/2025 Back pain, lumbosacral (ICD-10 - M54.50) 12/01/2024 Intervertebral disc disorders with radiculopathy, lumbar region (ICD-10 - M51.16) I had a nice discussion with the patient today regarding her chronic pain complaints. She states that she has noticed more pain over the past few months mostly due to the colder weather but also due to having an infection. She states that she was treated with antibiotics and is doing better. As far as her medication goes, it does continue to provide her some relief so that will be continued for her. She continues to remain compliant with accurate pill counts and consistent drug screens. She will follow-up with us in a couple months to continue to monitor her progress. 03/01/2025 Intervertebral disc disorders with radiculopathy, lumbar region (ICD-10 - M51.16) 01/26/2025 Intervertebral disc disorders with radiculopathy, lumbar region (ICD-10 - M51.16) 12/01/2024 Analgesic use (ICD-10 - Z79.899) I had a nice discussion with the patient today regarding her chronic pain complaints. She states that she has noticed more pain over the past few months mostly due to the colder weather but also due to having an infection. She states that she was treated with antibiotics and is doing better. As far as her medication goes, it does continue to provide her some relief so that will be continued for her. She continues to remain compliant with accurate pill counts and consistent drug screens. She will follow-up with us in a couple months to continue to monitor her progress. 05/04/2025 Intervertebral disc disorders with radiculopathy, lumbar region (ICD-10 - M51.16) 03/01/2025 Analgesic use (ICD-10 - Z79.899) 05/04/2025 Analgesic use (ICD-10 - Z79.899) RECOMMEND URINE TESTING TODAY Urine drug screening will be performed today to monitor compliance with opioid therapy or to serve as a baseline screen for a patient who may be a candidate for opioid therapy in the future, pending UDS results. We will monitor with in-office testing (rapid testing) today and review the results prior to dispensing prescription. All positive results will be sent for quantitative analysis to ensure accuracy and quantify amounts. Any expected positive results that return negative will also be sent for quantitative analysis. Any questionable read or any medication we cannot test for in the office confidently will be sent for quantitative analysis, as well. Patient has been made aware of this policy and agrees to abide by our urine testing policy. 01/26/2025 Analgesic use (ICD-10 - Z79.899) 03/01/2025 Other I, Abraham Stoddard, am scribing for Dr. Ronny Valentine. I, Dr. Ronny Valentine, personally performed the services described in this documentation, as scribed by Abraham Stoddard, and it is both accurate and complete. Plan Of Treatment Next Appt Details Provider Name:Carmen gaston, 06/29/2025 08:00:00 AM, [address] [place], [address], Insurance Providers Payer Name Payer Address Payer Phone Subscriber Number Group Number Insured Name Patient Relationship to Insured Coverage Start Date Coverage End Date [place] Medicaid [address] [place] [address] [id number] Analia Hurst Self - patient is the insured Medical (General) History Surgical History Surgery Date(Month/Year) Gallbladder surgery Hand Surgery leg stents Neck surgery Toe amputation ulnar nerve surgery Rectal Prolapse Repair Low back surgery left rotator cuff Hysterectomy
--- OUTSIDE RECORDS SUMMARY | 2025-05-31 16:06 | XMS_ITS | Encounter Summary ---
Author Organization [facility] Address [address] [place] [address] Care Team Providers Care Salesperson Hearing Aids Name Role Phone Unavailable Primary Care Provider Unavailabl e Encounter Details Date Type Department Care Team (Late st Contact Info) Description 09/21/2002 Outpatient Historical [facility] OBANNANAna Floresnn [place] [address] [place] [address] Osman Pedraza MD [address] [phone] DYSPLASIA OF CERVIX (Primary Dx); Excessive menstruation Social History Tobacco Use Types Packs/Day Years Used Date Smoking Tobacco: Never Assessed Comments Unknown Sex and Gender Information Value Date Recorded Sex Assigned at Not on file 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
--- OUTSIDE RECORDS SUMMARY | 2025-05-31 16:06 | XMS_ITS | Encounter Summary ---
Author Organization [facility] Address [address] [place] [address] Care Team Providers Care Stereotype Finisher Name Role Phone Unavailable Primary Care Provider Unavailabl e Encounter Details Date Type Department Care Team (Late st Contact Info) Description 09/15/2002 Outpatient Historical [facility] Nithin Floresnn [place] [address] [place] [address] Osman Pedraza MD [address] [phone] DYSMENORRHEA (Primary Dx); DYSPAREUNIA; HYPERTROPHY OF UTERUS Social History Tobacco Use Types Packs/Day Years Used Date Smoking Tobacco: Never Assessed Comments Unknown Sex and Gender Information Value Date Recorded Sex Assigned at Not on file 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
--- OUTSIDE RECORDS SUMMARY | 2025-05-31 16:06 | XMS_ITS | Encounter Summary ---
Author Organization [facility] Address [address] [place] [address] Care Team Providers Care Brand Advocate Name Role Phone Unavailable Primary Care Provider Unavailabl e Encounter Details Date Type Department Care Team (Late st Contact Info) Description 08/17/2008 Emergency [facility] Emergency Department [address] [place] [id number] Ed, Physician NO ADDRESS ON FILE Abraham Rollins MD NO ADDRESS ON FILE Abdominal Pain, Other Specified Site; Vomiting Alone; Unspecified Constipation; Peptic Ulcer, Site NOS; Other Acquired Absence of Organ; Personal History of Malignant Neoplasm of Other Parts of Uterus; Elevated Blood Pressure Reading without Diagnosis of Hypertension; Pure Hypercholesterolemia; Personal History of Allergy to Narcotic Agent; Encounter for Long-Term (Current) Use of Other Medications Social History Tobacco Use Types Packs/Day Years Used Date Smoking Tobacco: Never Assessed Comments Unknown Sex and Gender Information Value Date Recorded Sex Assigned at Not on file 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 Gender Identity Not on file Sexual Orientation Not on file documented as of this encounter Plan of Treatment Not on file documented as of this encounter Procedures Procedure Name Priority Date/Time Associated Diagnosis Comments POC GLUCOSE Routine 08/17/2008 8:51 PM CDT XR ABDOMEN W DECUB AND OR ERECT 2 VW Routine 08/17/2008 3:42 PM CDT CBC WITH DIFFERENTIAL Stat 08/17/2008 3:37 PM CDT LIPASE Stat 08/17/2008 3:37 PM CDT AMYLASE Stat 08/17/2008 3:37 PM CDT COMPREHENSIVE METABOLIC PANEL Stat 08/17/2008 3:37 PM CDT URINALYSIS W/REFLEX MICROSCOPIC Stat 08/17/2008 3:26 PM CDT documented in this encounter Results * (ABNORMAL) POC GLUCOSE (08/17/2008 8:51 PM CDT) GLUCOSE POC 103(H) 60 - 100 mg/dL [facility] Venous blood specimen (specimen) 08/17/2008 8:51 PM CDT 08/18/2008 7:45 AM CDT Abraham Rollins MD POINT OF CARE TESTING Final Resu lt INTERFACE SYSTEM Refer to clinic/hospital department [facility] CLIA# [id number] [address] [place] [address] * XR ABDOMEN W DECUB AND OR ERECT (08/17/2008 3:42 PM CDT) Anatomical Region Laterality Modality Abdomen Other 08/17/2008 3:42 PM CDT Narrative 08/17/2008 8:52 PM CDT Exam: Abdomen - Flat and Upright Date/Time of Exam: Aug 17, 2008 3:42:00 PM History: Constipation. Comparison: None. Findings: Supine and upright views of the abdomen on four films demonstrate surgical clips of the right upper quadrant. No free air, gross organomegaly, or definite pathologic calcification is identified. Mild retained fecal material throughout the colon is present. Surgical clips of the pelvis are identified bilaterally. Impression: 1. Status post cholecystectomy. 2. Mild retained fecal material throughout the colon. - Dictated By: Saturnino Pyle M.D. Electronically Signed By: Saturnino Pyle M.D. Date Signed: 08/17/08 Procedure Note Tyra Pyle - 08/17/2008 Exam: Abdomen - Flat and Upright Date/Time of Exam: Aug 17, 2008 3:42:00 PM History: Constipation. Comparison: None. Findings: Supine and upright views of the abdomen on four filmsdemonstrate surgical clips of the right upper quadrant. No free air, gross organomegaly, or definite pathologiccalcification is identified. Mild retained fecal material throughout the colon is present. Surgical clipsof the pelvis are identified bilaterally. Impression: 1. Status post cholecystectomy. 2. Mild retained fecal material throughout the colon. - Dictated By: Saturnino Pyle M.D. Electronically Signed By: Saturnino Pyle M.D. Date Signed: 08/17/08 us Ricardo Al MD DIAGNOSTIC IMAGING ORDERAB LES Final Result * (ABNORMAL) COMPREHENSIVE METABOLIC PANEL (08/17/2008 3:37 PM CDT) GLOBULIN (CALC) 2.5 2.4 - 3.9 g/dL [facility] SODIUM 138 136 - 145 mEq/L [facility] BILIRUBIN TOTAL 0.3 0.3 - 1.2 mg/dL [facility] TOTAL PROTEIN 7.1 6.3 - 8.2 g/dL [facility] BUN 8 7 - 17 mg/dL [facility] AST 20 8 - 33 U/L [facility] CO2 25 22 - 32 mmol/l [facility] ALBUMIN/GLOBULIN RATIO 1.8 1.0 - 2.3 [facility] ALBUMIN 4.6 3.5 - 5.0 g/dL [facility] POTASSIUM 3.9 3.5 - 5.0 mEq/L [facility] ANION GAP 7(L) 9 - 20 mEq/L [facility] CREATININE 0.6(L) 0.7 - 1.2 mg/dL [facility] CALCIUM 9.6 8.4 - 10.5 mg/dL [facility] ALT 21 4 - 36 IU/L [facility] GLUCOSE 185(H) 70 - 110 mg/dL [facility] CHLORIDE 110 95 - 110 mEq/L [facility] OSMOLALITY, CALCULATED 287 275 - 295 mOsm/Kg [facility] ALKALINE PHOSPHATASE 97 25 - 100 U/L [facility] Blood specimen (specimen) 08/17/2008 3:37 PM CDT 08/17/2008 3:41 PM CDT Ricardo Al MD CHEMISTRY ORDERABLES Final Result Performing Organization Address [facility] Phone Number INTERFACE SYSTEM Refer to clinic/hospital department [facility] CLIA# [id number] [address] [place] [address] * AMYLASE (08/17/2008 3:37 PM CDT) AMYLASE 79 20 - 104 U/L [facility] Blood specimen (specimen) 08/17/2008 3:37 PM CDT 08/17/2008 3:41 PM CDT Ricardo Al MD CHEMISTRY ORDERABLES Final Result Performing Organization Address [facility] Phone Number INTERFACE SYSTEM Refer to clinic/[facility] CLIA# [id number] [address] [place] [address] * LIPASE (08/17/2008 3:37 PM CDT) LIPASE 47 6 - 51 U/L [facility] Blood specimen (specimen) 08/17/2008 3:37 PM CDT 08/17/2008 3:41 PM CDT Ricardo Al MD CHEMISTRY ORDERABLES Final Result Performing Organization Address [facility] de Phone Number INTERFACE SYSTEM Refer to clinic/[facility] CLIA# [id number] [address] [place] [address] * CBC WITH DIFFERENTIAL (08/17/2008 3:37 PM CDT) WBC 10.9 4.5 - 11.0 K/ul [facility] MCH 31.6 27.0 - 34.0 pg [facility] NEUTROPHIL ABSOLUTE 7.0 2.0 - 8.0 K/ul [facility] NEUTROPHILS 64.0 42.2 - 75.2 % [facility] HEMATOCRIT 40.9 36.0 - 46.0 % [facility] EOSINOPHILS 1.3 0.0 - 7.0 % [facility] PLATELETS 175 140 - 440 K/ul [facility] EOSINOPHIL ABSOLUTE 0.1 0.0 - 0.7 K/ul [facility] RBC 4.49 4.20 - 5.40 Mil/ul [facility] LYMPHOCYTES 29.4 24.0 - 44.0 % [facility] MCHC 34.7 30.0 - 35.0 g/dL [facility] LYMPHOCYTE ABSOLUTE 3.2 1.2 - 4.0 K/ul [facility] MCV 91.1 84.0 - 103.0 Fl [facility] MPV 10.6 8.9 - 12.8 Fl [facility] BASOPHILS ABSOLUTE 0.0 0.0 - 0.2 K/ul [facility] BASOPHILS 0.3 0.0 - 1.0 % [facility] HEMOGLOBIN 14.2 12.0 - 16.0 g/dL [facility] RDW 13.2 11.0 - 14.5 % [facility] MONOCYTE ABSOLUTE 0.5 0.1 - 0.6 K/ul [facility] MONOCYTES 5.0 2.0 - 10.0 % [facility] Blood specimen (specimen) 08/17/2008 3:37 PM CDT 08/17/2008 3:41 PM CDT Ricardo Al MD HEMATOLOGY ORDERABLES Sana lima Result INTERFACE SYSTEM Refer to clinic/hospital department [facility] CLIA# [id number] [address] [place] [address] * (ABNORMAL) URINALYSIS (08/17/2008 3:26 PM CDT) CLARITY UA SL CLOUDY Clear [facility] GLUCOSE UA 500 mg/dl(A) NEGATIVE [facility] SPECIFIC GRAVITY UA 1.020 <=1.005 [facility] PH UA 7.0 5.0 - 9.0 [facility] BILIRUBIN UA NEGATIVE NEGATIVE [facility] LEUKOCYTE ESTERASE UA NEGATIVE NEGATIVE [facility] MICRO EXAM No No [facility] KETONES UA NEGATIVE NEGATIVE [facility] COLOR UA Straw Straw [facility] PROTEIN UA NEGATIVE NEGATIVE [facility] BLOOD UA NEGATIVE NEGATIVE [facility] NITRITE UA NEGATIVE NEGATIVE [facility] UROBILINOGEN UA 0.2 0.2 [facility] Urine specimen (specimen) 08/17/2008 3:26 PM CDT 08/17/2008 3:37 PM CDT us Ricardo Al MD URINE ORDERABLES Final Res ult INTERFACE SYSTEM Refer to clinic/hospital department [facility] CLIA# [id number] [address] [place] [address] documented in this encounter Visit Diagnoses Diagnosis Abdominal pain, other specified site Vomiting alone Unspecified constipation Peptic ulcer, unspecified site, unspecified as acute or chronic, without mention of hemorrhage, perforation, or obstruction Other acquired absence of organ Personal history of malignant neoplasm of other parts of uterus Elevated blood pressure reading without diagnosis of hypertension Pure hypercholesterolemia Personal history of allergy to narcotic agent Encounter for long-term (current) use of other medications documented in this encounter
--- OUTSIDE RECORDS SUMMARY | 2025-05-31 16:06 | XMS_ITS | Encounter Summary ---
Author Organization [facility] Address 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 Relayed to PT she is on the schedule for a phone visit from Dr. Michael today who will go over results with her. * Telephone Encounter - Cynthia Jordan - 05/23/2025 2:43 PM CDT PT calls as she has not received the results from recent tests and she is very concerned. Please call PT with results. * Telephone Encounter - Rea Holt - 05/22/2025 8:[address] Bailey's office called asking if we had received the report for the CTA. It is not in her chart.They will have it faxed. I also requested that they call [facility] and have the images powershared. 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
--- OUTSIDE RECORDS SUMMARY | 2025-05-31 16:06 | XMS_ITS | Encounter Summary ---
Author Organization [facility] Address [address] [place] [address] Care Team Providers Care Hyperbaric Technologist Name Role Phone Unavailable Primary Care Provider Unavailabl e Reason for Visit * Reason Onset Date Comments NMST Instructions 05/26/2025 Encounter Details Date Type Department Care Team (Late st Contact Info) Description 05/26/2025 Telephone [facility] Nuclear Medicine [facility] [address] [place] [address] Rina Mcdonough RN NMST Instructions Social History Tobacco Use Types Packs/Day Years Used Date Smoking Tobacco: Some Days Cigarettes Smokeless Tobacco: Never Comments:Has cut down to a h intermediate a pack per week. 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 documented in this encounter Plan of Treatment Not on file documented as of this encounter Visit Diagnoses Not on filedocumented in this encounter Additional Health Concerns Assessment Noted Time PHQ-9 Depression Total Score: 6 02/01/20 24 7:00 PM SPANISH SPEAKING NANNY documented as of this encounter
--- NOTE | 2025-05-31 16:15 | ECG_ITS ---
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 Measurements Intervals [place] Rate: 116 P: 67 VA: 146 QRS: 79 QRSD: 77 T: 75 QT: 292 QTc: 406 Interpretive Statements SINUS TACHYCARDIA Compared to ECG 05/05/2025 21:13:00 No significant changes Electronically Signed On 06-01-2025 08:53:47 CDT by Grayson Cota M.D. [email or web address]
--- NOTE | 2025-05-31 16:16 | USR_ITS ---
PROCEDURE INFORMATION: Exam: US Duplex Left Lower Extremity Veins, Limited Exam date and time: 05/31/2025 4:28 PM Age: 54 years old Clinical indication: Pain; Leg, upper; Left; Additional info: Left-sided calf pain and swelling concern for dvt TECHNIQUE: Imaging protocol: Real-time duplex ultrasound of the left extremity with 2-D tolbert scale, color Doppler flow and spectral waveform analysis including responses to compression and other maneuvers (when performed) with image documentation. Limited exam focused on the left lower extremity veins. COMPARISON: US CV arterial duplex [facility] [id number] 03/30/2025 7:34 PM FINDINGS: Left deep veins: Unremarkable. The common femoral, femoral, proximal profunda femoral and popliteal veins are patent without thrombus. Normal Doppler waveforms. Normal compressibility and/or augmentation response. Superficial veins: Greater saphenous vein at the saphenofemoral junction is patent without thrombus. Soft tissues: Left groin prominent lymph node measuring up to 8 mm in short axis which is likely reactive. US/CV venous duplex [facility] [id number] IMPRESSION: No evidence of deep vein thrombosis. Reactive lymph node in the left groin.
--- NOTE | 2025-05-31 16:30 | W.ED.EXTPRO ---
HPI - Extremity Problem General: Chief complaint: Extremity Problem,Nontraumatic Stated complaint: L leg pain Time Seen by Provider: 05/31/25 16:13 History of Present Illness: 54-year-old female who presents emergency room with left popliteal pain. She has had a right BKA. Says she was in the ER recently. Review of her records shows that she had ketoacidosis at that time. 7 no chest pain. No shortness of breath. She mildly tachycardic on presentation. She is not on any blood thinners. No fevers. Related Data Home Medications ?Medication ?Instructions ?Recorded ?Confirmed atorvastatin 40 mg tablet 40 mg PO DAILY 05/06/25 05/15/25 citalopram 40 mg tablet 40 mg PO DAILY 05/06/25 05/15/25 clopidogrel 75 mg tablet 75 mg PO DAILY 05/06/25 05/15/25 furosemide 20 mg tablet 20 mg PO DAILY PRN edema 05/06/25 05/15/25 lactulose 10 gram/15 mL oral 30 ml PO BID PRN Constipation 05/06/25 05/15/25 solution olanzapine 5 mg tablet 5 mg PO BID 05/06/25 05/15/25 pantoprazole 40 mg tablet,delayed 40 mg PO DAILY 05/06/25 05/15/25 release potassium chloride 20 mEq 20 meq PO BID PRN while taking 05/06/25 05/15/25 tablet,extended release Lasix promethazine 25 mg tablet 12.5 mg PO BEDTIME PRN Nausea 05/06/25 05/15/25 tizanidine 4 mg tablet 4 mg PO TID PRN Muscle Spasticity 05/06/25 05/15/25 Previous Rx's ?Medication ?Instructions ?Recorded blood sugar diagnostic (OneTouch #300 ea 07/17/23 Ultra Test strips) 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 meter (OneTouch #1 kit 08/19/23 Ultra2 Meter) 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 sensor (Dexcom G7 #9 ea 09/30/23 Sensor device) multivitamin 1 tab PO DAILY@08 #90 tabs 11/10/23 pen needle, diabetic 31 gauge x #100 ea 11/10/2302/12 (TechLITE Pen Needle) 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,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,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 #1 ea 01/12/24 (Dexcom G7 Jde Developer) oxycodone 10 mg tablet 10 mg PO Q6H PRN pain 30 days #120 01/12/24 tabs wheel chair ramp #1 ea 02/09/24 motorized wheel chair #1 ea 03/21/24 Hinged knee brace, right #1 ea 05/03/24 pentoxifylline 400 mg 400 mg PO TID #90 tabs 09/26/24 tablet,extended release prazosin 1 mg capsule 1 mg PO BID 30 days #60 caps 10/05/24 amitriptyline 25 mg tablet 25 mg PO BEDTIME #30 tabs 11/08/24 fluconazole 150 mg tablet 150 mg PO Q72H #5 tabs 12/27/24 techlite ultra thin 3/4 inch #100 ea 01/22/25 needles hydroxyzine HCl 25 mg tablet 25 mg PO BID PRN itching #30 tabs 01/30/25 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 sensor (Dexcom G7 #3 ea 02/10/25 Sensor device) 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,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,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 #1 ea 02/10/25 (Dexcom G7 Jde Developer) pregabalin 300 mg capsule (Lyrica) 300 mg PO BID@08,20 #60 caps 04/25/25 hospital bed #1 ea 05/03/25 insulin glargine 100 unit/mL (3 15 unit (0.15 mL) SUBCUT BID #15 mL 05/10/25 mL) subcutaneous pen (Lantus Solostar U-100 Insulin) insulin regular human 100 unit/mL 10 unit (0.1 mL) SUBCUT Q8H #3 mL 05/10/25 injection solution (Humulin R Regular U-100 Insulin) lorazepam 0.5 mg tablet (Ativan) 0.5 mg PO BEDTIME PRN sleep #7 tabs 05/10/25 levofloxacin 500 mg tablet 500 mg PO DAILY #10 tabs 05/11/25 ropinirole 2 mg tablet See Rx Instructions .Route 05/22/25 .COMPLEX #60 tabs cephalexin 500 mg tablet 500 mg PO TID 7 days #21 tabs 05/31/25 Allergies Allergy/AdvReac Type Severity Reaction Status Date / Time ketorolac (From Toradol) Allergy Intermediate rash Verified 05/15/25 15:06 morphine Allergy Intermediate rash Verified 05/15/25 15:06 nitrofurantoin (From Allergy Intermediate rash Verified 05/15/25 15:06 Macrobid) Penicillins Allergy Intermediate hives Verified 05/15/25 15:06 acetaminophen (From Tylenol) Allergy ADR-Nausea Verified 05/15/25 15:06 adhesive Allergy rash Verified 05/15/25 15:06 ibuprofen Allergy ADR-Gastrointestinal Verified 05/15/25 15:06 Upset Review of Systems Narrative: Constitutional symptoms: Negative except as documented in HPI. Skin symptoms: Negative except as documented in HPI. Eye symptoms: Negative except as documented in HPI. ENMT symptoms: Negative except as documented in HPI. Respiratory symptoms: Negative except as documented in HPI. Cardiovascular symptoms: Negative except as documented in HPI. Gastrointestinal symptoms: Negative except as documented in HPI. Genitourinary symptoms: Negative except as documented in HPI. Musculoskeletal symptoms: Negative except as documented in HPI. Neurologic symptoms: Negative except as documented in HPI. Psychiatric symptoms: Negative except as documented in HPI. Endocrine symptoms: Negative except as documented in HPI. PFSH ED PFSH: Medical History (Updated 05/31/25 @ 18:08 by Jaja Cardona MD) Noncompliance Diabetic peripheral neuropathy associated with type 2 diabetes mellitus PICC line infection Below-knee amputation of right lower extremity Diabetic ketoacidosis Postoperative bleeding from incision Chondromalacia, knee Plica of knee Medial meniscus tear Acute pain of left knee Gastroparesis due to DM Acute hyperglycemia Arthritis of hand, left Sepsis Pyelonephritis Hypertension Depression Diabetes Insomnia Ulnar nerve impingement Lumbar post-laminectomy syndrome Spinal stenosis, cervical region Surgical History (Updated 05/11/25 @ 00:00 by ROCHELLE Jurado) H/O esophagogastroduodenoscopy (05/23/21) H/O flexible sigmoidoscopy (05/23/21) Status post laparoscopic cholecystectomy H/O carpal tunnel repair History of lumbar fusion H/O neck surgery H/O rotator cuff surgery History of hysterectomy H/O tubal ligation S/P left knee arthroscopy Family History Other CAD (coronary artery disease) Cancer Stroke Denies family history of Anesthesia complication Bleeding disorder Social History Smoking and tobacco/nicotine status: never used tobacco/nicotine Second hand smoke exposure: Yes Alcohol intake: former Substance/Drug Use: never Physical Exam Narrative: EXAM NARRATIVE: General: Alert, no acute distress. Skin: warm and dry Head: Normocephalic Neck: Trachea midline Eye: Extraocular movements are intact. Ears, nose, mouth and throat: Oral mucosa moist Respiratory: Respirations are non-labored Musculoskeletal: Right BKA. Left tenderness to palpation of the popliteal area with no obvious redness or swelling. Gastrointestinal: Abdomen does not appear distended Neurological: Alert and oriented, No focal neurological deficit observed. Psychiatric: Cooperative, appropriate mood & affect. Course Vital Signs: Vital signs: Vital Signs Temperature 99.4 F 05/31/25 16:05 Pulse Rate 110 H 05/31/25 17:30 Respiratory Rate 20 H 05/31/25 16:32 Blood Pressure 119/81 05/31/25 17:00 Pulse Oximetry 93 05/31/25 17:30 Oxygen Delivery Me thod Room Air 05/31/25 17:30 MDM - Extremity (Nontraumatic) Medical Decision Making Medical decision making: Differential diagnosis including but not limited to and based on the above HPI, review of systems and physical exam: DVT versus possible infection orders placed to evaluate differential diagnosis based on the above differential, HPI and physical exam Lab Review: Laboratory results were reviewed and interpreted by myself the emergency room physician. Mild leukocytosis. No anemia. No renal failure. Ultrasound of lower extremity shows no DVT. This was reviewed and interpreted by myself the emergency room physician. I also reviewed the radiology report. I reviewed the patient's medical record. Reexamination: Patient remained stable. No increased work of breathing. No altered mental status. No focal motor deficits. Assessment and plan: Calf pain, possible cellulitis ?Rocephin in the emergency room. - Discharged home - Discussed plan with patient. Answered any questions. - Evaluation and treatment of this problem were appropriate in the emergency setting. Lab Data 05/31/25 16:49 05/31/25 16:49 Radiology Impressions Venous Duplex 05/31/25 16:16 IMPRESSION: No evidence of deep vein thrombosis. Reactive lymph node in the left groin. Laboratory Results WBC 13.71 10^3/uL (3.29-11.43) H 05/31/25 16:49 RBC 4.67 10^6/uL (3.85-5.65) 05/31/25 16:49 Hgb 12.70 g/dL (11.27-16.99) 05/31/25 16:49 Hct 40.5 % (36-47) 05/31/25 16:49 MCV 86.7 fl (85-98) 05/31/25 16:49 MCH 27.2 pg (27-33) 05/31/25 16:49 MCHC 31.4 g/dL (30-55) 05/31/25 16:49 RDW 15.5 % (12.1-15.1) H 05/31/25 16:49 Plt Count 136 10^3/cmm (157-399) L 05/31/25 16:49 MPV 11.1 fL (7.4-10.4) H 05/31/25 16:49 Neut % (Auto) 82.7 % 05/31/25 16:49 Lymph % (Auto) 11.4 % 05/31/25 16:49 [place] % (Auto) 4.2 % 05/31/25 16:49 Eos % (Auto) 0.3 % 05/31/25 16:49 Baso % (Auto) 0.2 % 05/31/25 16:49 Neut # (Auto) 11.35 10^3/uL (1.8-7.7) H 05/31/25 16:49 Lymph # (Auto) 1.6 10^3/uL (0.8-4.8) 05/31/25 16:49 [place] # (Auto) 0.6 10^3/uL (0.2-0.9) 05/31/25 16:49 Eos # (Auto) 0.0 10^3/uL (0.0-0.8) 05/31/25 16:49 Baso # (Auto) 0.0 10^3/uL (0.0-0.1) 05/31/25 16:49 Nucleated RBC % (auto) 0 % 05/31/25 16:49 Nucleated RBCs # 0.0 /100WBC 05/31/25 16:49 Sodium 135 mmol/L (136-145) L 05/31/25 16:49 Potassium 4.4 mmol/L (3.5-5.1) 05/31/25 16:49 Chloride 97 mmol/L (98-107) L 05/31/25 16:49 Carbon Dioxide 20 mmol/L (22-29) L 05/31/25 16:49 Anion Gap 22.4 (5-19) H 05/31/25 16:49 BUN 19 mg/dL (6-20) 05/31/25 16:49 Creatinine 0.8 mg/dL (0.5-0.9) 05/31/25 16:49 GFR Calculation 74.5 mL/min (90-130) L 05/31/25 16:49 Glucose 133 mg/dL (65-115) H 05/31/25 16:49 Calculated Osmolality 284 mOsm/kg (285-295) L 05/31/25 16:49 Calcium 9.1 mg/dL (8.5-10.5) 05/31/25 16:49 Total Bilirubin 0.5 mg/dL (0.15-1.2) 05/31/25 16:49 AST 17 U/L (0-32) 05/31/25 16:49 ALT 23 U/L (0-33) 05/31/25 16:49 Alkaline Phosphatase 213 U/L (35-105) H 05/31/25 16:49 Total Protein 7.7 g/dL (6.6-8.7) 05/31/25 16:49 Albumin 3.9 g/dL (3.5-5.2) 05/31/25 16:49 Globulin 3.8 g/dL (1.3-4.6) 05/31/25 16:49 All radiology interpretation(s) finalized by discharge Discharge Plan Discharge Patient Disposition: Home Clinical Impression: Calf pain Condition: Stable Prescriptions: New cephalexin 500 mg tablet 500 mg PO TID 7 Days Qty: 21 0RF No Action (DME) Dexcom G7 Sensor Device See Rx Instructions .Route Qty: 3 3RF Rx Instructions: change every 10 days (DME) Dexcom G7 Jde Developer Misc See Rx Instructions .Route Qty: 1 0RF Rx Instructions: As directed (DME) wheel chair ramp See Rx Instructions .Route .MEDSUPPLY Qty: 1 0RF Rx Instructions: As directed (DME) Hinged knee brace, right See Rx Instructions .Route .MEDSUPPLY Qty: 1 0RF Rx Instructions: As directed pentoxifylline 400 mg tablet extended release 400 mg PO TID Qty: 90 4RF Rx Instructions: must administer with a meal/food amitriptyline 25 mg tablet 25 mg PO BEDTIME Qty: 30 8RF (DME) OneTouch Ultra Test Strip See Rx Instructions .Route Qty: 300 3RF Rx Instructions: to use in onetouch ultra meter TID to check blood sugar 90 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 [OneTouch Ultra2 Meter] Misc See Rx Instructions .ROUTE .COMPLEX Qty: 1 0RF Dose Instruction: USE DIRECTED Rx Instructions: USE DIRECTED [place] Dexcom G7 Sensor Device See Rx Instructions .ROUTE .MEDSUPPLY Qty: 9 0RF Rx Instructions: Change every 10days multivitamin Tablet 1 tab PO DAILY@08 Qty: 90 4RF (DME) pen needle, diabetic [TechLITE Pen Needle] 31 gauge x 3/16 needle See Rx Instructions .ROUTE .COMPLEX Qty: 100 3RF Dose Instruction: USE DIRECTED Rx Instructions: USE DIRECTED oxycodone 10 mg tablet 10 mg PO Q6H PRN (Reason: pain) 30 Days Qty: 120 0RF (DME) Dexcom G7 Jde Developer Misc See Rx Instructions .Route Qty: 1 0RF Rx Instructions: As directed Patient states needs 7 not 6 (DME) motorized wheel chair See Rx Instructions .Route .MEDSUPPLY Qty: 1 0RF Rx Instructions: Only mode of transportation. Patient does not drive. Home bound prazosin 1 mg capsule 1 mg PO BID 30 Days Qty: 60 10RF fluconazole 150 mg tablet 150 mg PO Q72H Qty: 5 3RF (DME) techlite ultra thin 3/4 inch needles See Rx Instructions .Route .MEDSUPPLY Qty: 100 5RF Rx Instructions: As directed hydroxyzine HCl 25 mg tablet 25 mg PO BID PRN (Reason: itching) Qty: 30 5RF Lyrica 300 mg capsule 300 mg PO BID@08,20 Qty: 60 5RF (DME) hospital bed See Rx Instructions .Route .MEDSUPPLY Qty: 1 0RF Rx Instructions: As directed levofloxacin 500 mg tablet 500 mg PO DAILY Qty: 10 0RF ropinirole 2 mg tablet See Rx Instructions .ROUTE .COMPLEX Qty: 60 1RF Dose Instruction: TAKE 1 TABLET BY MOUTH TWICE A DAY Rx Instructions: TAKE 1 TABLET BY MOUTH TWICE A DAY olanzapine 5 mg tablet 5 mg PO BID lactulose 10 gram/15 mL solution 30 ml PO BID PRN (Reason: Constipation) atorvastatin 40 mg tablet 40 mg PO DAILY citalopram 40 mg tablet 40 mg PO DAILY tizanidine 4 mg tablet 4 mg PO TID PRN (Reason: Muscle Spasticity) clopidogrel 75 mg tablet 75 mg PO DAILY pantoprazole 40 mg tablet,delayed release (DR/EC) 40 mg PO DAILY promethazine 25 mg tablet 12.5 mg PO BEDTIME PRN (Reason: Nausea) furosemide 20 mg tablet 20 mg PO DAILY PRN (Reason: edema) potassium chloride 20 mEq tablet extended release 20 meq PO BID PRN (Reason: while taking Lasix) insulin glargine [Lantus Solostar U-100 Insulin] 100 unit/mL (3 mL) insulin pen 15 unit SUBCUT BID Qty: 15 0RF Humulin R Regular U-100 Insuln 100 unit/mL solution 10 unit SUBCUT Q8H Qty: 3 0RF lorazepam [Ativan] 0.5 mg tablet 0.5 mg PO BEDTIME PRN (Reason: sleep) Qty: 7 0RF Discharge Orders: Discharge ED (Routine); Ordered 05/31/25 Ordered By: Jaja Cardona Referrals: Yesica Bailey MD [Primary Care Provider, Family Practice] Discharge Diet: Usual diet Discharge Activity: Increase activity as tolerated Patient Instructions: Opioid Safety, Pain Management, Patient Portal & [place] Instructions Activity Restrictions/Additional Instructions: Thank you for choosing [facility] for your healthcare needs today. You have been screened and evaluated and felt safe for discharge. Health conditions do change or evolve sometimes and as such it is important that you follow up with your Primary Doctor to be re checked, 3-5 days is a general good time frame for follow up. You are always welcome to return to the ED for re assessment if your symptoms are worsening or you have new concerns Print Language: Welsh Coding Level of Care Code ED D[employer] Processing Equipment Operator for Felicia Fermin
[2025-05-31 16:32] VITALS: RESP 20; O2SAT 94
[2025-05-31] MEDS: oxyCODONE 5 mg IR Tab/Cap 10 MG PO (16:32)
[2025-05-31 16:57] LABS: Hematocrit 40.5 % (36-47); Hemoglobin 12.70 g/dL (11.27-16.99); Mean Corpuscular HGB Conc 31.4 g/dL (30-55); Mean Corpuscular Hemoglobin 27.2 pg (27-33); Mean Corpuscular Volume 86.7 fl (85-98); Nucleated Red Blood Cells % 0 %; Platelet Count 136 10^3/cmm (157-399); Red Blood Count 4.67 10^6/uL (3.85-5.65); White Blood Count 13.71 10^3/uL (3.29-11.43)
[2025-05-31 17:00] VITALS: BP 119/81; PULSE 111; O2SAT 94
[2025-05-31 17:30] VITALS: PULSE 110; O2SAT 93
[2025-05-31 17:39] LABS: Alanine Aminotransferase 23 U/L (0-33); Albumin Level 3.9 g/dL (3.5-5.2); Alkaline Phosphatase 213 U/L (35-105); Aspartate Amino Transferase 17 U/L (0-32); Blood Urea Nitrogen 19 mg/dL (6-20); Calcium 9.1 mg/dL (8.5-10.5); Carbon Dioxide 20 mmol/L (22-29); Chloride 97 mmol/L (98-107); Creatinine Clr Calc Pharmacy 98.7045; Globulin 3.8 g/dL (1.3-4.6); Glucose 133 mg/dL (65-115); Osmolality Calculated 284 mOsm/kg (285-295); Sodium 135 mmol/L (136-145); Total Protein 7.7 g/dL (6.6-8.7)
[2025-05-31 17:42] LABS: Anion Gap 22.4 (5-19); Potassium 4.4 mmol/L (3.5-5.1)
[2025-05-31 18:00] VITALS: PULSE 108; O2SAT 93
[2025-05-31] MEDS: cefTRIAXone 1,000 MG in water for injection-sterile 2.1 ML 2.1 MG IM (18:16)
== END 2025-05-31 18:30 | disposition home or self-care (01) ==
PROVIDERS: Emergency Provider Emergency Medicine; PCP Family Medicine
DX: M79.605 Pain in left leg (principal); Z79.02 Long term (current) use of antithrombotics/antiplatelets; Z79.4 Long term (current) use of insulin; I10 Essential (primary) hypertension; E11.42 Type 2 diabetes mellitus with diabetic polyneuropathy
CPT/HCPCS: 36415; 80053; 85025; 93005; 93971; 96372; 99284; J0696; J9999

== ENCOUNTER → 2025-08-23 08:21 | Outpatient (BNVA) | payer MEDICAID, SELFPAY | PROVIDERS: PCP Family Medicine; Visit Provider Internal Medicine | DX: E11.42 Type 2 diabetes mellitus with diabetic polyneuropathy (principal); E78.5 Hyperlipidemia, unspecified; E11.59 Type 2 diabetes mellitus with other circulatory complications; I25.10 Atherosclerotic heart disease of native coronary artery without angina pectoris; I63.9 Cerebral infarction, unspecified; Z79.4 Long term (current) use of insulin; Z98.890 Other specified postprocedural states; Z95.1 Presence of aortocoronary bypass graft | CPT/HCPCS: 99214 ==

== ENCOUNTER 2025-09-07 11:50 | Outpatient (CLI) | payer MEDICAID, SELFPAY | END 2025-09-07 11:51 | disposition home or self-care (01) | LOC: SLEEP 11:53 | PROVIDERS: PCP Family Medicine; Referring Provider Family Medicine; Visit Provider Internal Medicine Pulmonary Disease | DX: G47.30 Sleep apnea, unspecified (principal) | CPT/HCPCS: G0399 ==

== ENCOUNTER 2025-11-22 09:51 | Outpatient (CLI) | payer MEDICAID, SELFPAY ==
[2025-11-22 10:46] LABS: Estmated Average Glucose 214; Hemoglobin A1C 9.1 % (4.0-6.0)
[2025-11-22 10:55] LABS: Alanine Aminotransferase 8 U/L (0-33); Albumin Level 3.9 g/dL (3.5-5.2); Alkaline Phosphatase 209 U/L (35-105); Aspartate Amino Transferase 15 U/L (0-32); Blood Urea Nitrogen 12 mg/dL (6-20); Calcium 9.1 mg/dL (8.5-10.5); Carbon Dioxide 25 mmol/L (22-29); Chloride 96 mmol/L (98-107); Cholesterol 177 mg/dL (0-200); Globulin 3.8 g/dL (1.3-4.6); Glucose 211 mg/dL (65-115); HDL Cholesterol 34 mg/dL (60-100); Osmolality Calculated 286 mOsm/kg (285-295); Sodium 135 mmol/L (136-145); Total Protein 7.7 g/dL (6.6-8.7); Triglycerides 292 mg/dL (0-150)
[2025-11-22 11:00] LABS: Anion Gap 18.9 (5-19); Potassium 4.9 mmol/L (3.5-5.1)
[2025-11-22 11:04] LABS: Creatinine Urine, Random 73 mg/dL (28-217)
[2025-11-22 11:19] LABS: Microalbum Creatinine Ratio Ur 630 mg/dL (0-20)
== END 2025-11-22 09:52 | disposition home or self-care (01) ==
LOC: LAB 09:52
PROVIDERS: PCP Family Medicine; Visit Provider Internal Medicine
DX: E11.52 Type 2 diabetes mellitus with diabetic peripheral angiopathy with gangrene (principal); Z79.4 Long term (current) use of insulin
CPT/HCPCS: 36415; 80053; 80061; 82044; 83036